=== PATIENT | female | born 1965 | race Caucasian/White ===

== ENCOUNTER 2017-01-12 17:13 | Observation (INO) | payer BC, OTHER ==
[2017-01-12 17:35] VITALS: BMI 34.3
--- NOTE | 2017-01-12 17:52 | ED PDOC ---
Arrival/HPI - General Chief Complaint: Trauma Time Seen by Provider: 01/12/17 17:14 Historian: Patient - History of Present Illness Narrative History of Present Illness (Text): 01/12/17 17:40 A 51 year old female, whose past medical history includes hypertension, diabetes , asthma, chronic back pain and colon cancer (reported in remission), who comes in complaining of multiple falls since last week. Patient notes since the falls she has noticed some numbness to the lower left extremity and left foot. Patient reports earlier today she fell on the floor and is unsure what happened. Patient is unable to recall the events, however she does not believe she passed out or felt dizzy prior to the fall. She denies any focal weakness, chest pain, shortness of breath, nausea, vomiting, diarrhea, vision change or any other complaints at this time. PMD: None Past Medical History - Provider Review Nursing Documentation Reviewed: Yes - Infectious Disease Hx of Infectious Diseases: None - Tetanus Immunization Tetanus Immunization: Unknown - Reproductive Menopause: Yes - Cardiac Hx Hypertension: Yes - Pulmonary Hx Asthma: Yes Hx Bronchitis: Yes - Neurological Hx Neurological Disorder: No - HEENT Hx HEENT Disorder: No - Renal Hx Renal Disorder: No - Endocrine/Metabolic Hx Endocrine Disorders: Yes Hx Diabetes Mellitus Type 2: Yes - Hematological/Oncological Hx Blood Disorders: No Hx Cancer: Yes (colon denies chemo or radiation) - Integumentary Hx Dermatological Disorder: No - Musculoskeletal/Rheumatological Hx Falls: No - Gastrointestinal Hx Gastrointestinal Disorders: Yes Hx Gastroesophageal Reflux: Yes Other/Comment: Colon CA- WITH SURGERY-WHIPPLE SURGERY - Genitourinary/Gynecological Hx Genitourinary Disorders: Yes Hx Urinary Tract Infection: Yes Other/Comment: H/O VAGINAL CANDIDIASIS - Psychiatric Hx Depression: No Hx Substance Use: No (pt denies) - Surgical History Other/Comment: CA Colon - whipple,CESEREAN X 1 - Anesthesia Hx Anesthesia: No Hx Anesthesia Reactions: No Hx Malignant Hyperthermia: No - Suicidal Assessment Feels Threatened In Home Enviroment: No Family/Social History - Physician Review Nursing Documentation Reviewed: Yes Family/Social History: No Known Family HX Smoking Status: Heavy Smoker > 10 Cigarettes Daily Hx Alcohol Use: No (pt denies) Hx Substance Use: No (pt denies) Hx Substance Use Treatment: Yes Allergies/Home Meds Allergies/Adverse Reactions: Allergies acetaminophen Allergy (Verified 04/26/16 14:42) RASH codeine Allergy (Verified 03/31/16 07:35) RASH iodine Allergy (Verified 11/12/15 18:05) RASH Home Medications: Home Meds Medication Instructions Recorded Confirmed Enalapril Maleate 5 mg PO DAILY 05/21/14 04/27/16 Metformin HCl 1,000 mg PO BID 05/21/14 04/27/16 Hydroxyzine Pamoate 50 mg PO TID 11/12/15 04/27/16 Metaxalone 800 mg PO QID 11/12/15 04/27/16 Omeprazole 20 mg PO DAILY 11/12/15 04/27/16 Oxycodone Hydrochloride 80 mg PO Q8 11/12/15 04/27/16 Simvastatin 20 mg PO DAILY 11/12/15 04/27/16 Oxycodone HCl/Acetaminophen 1 tab PO Q8 PRN 04/27/16 04/27/16 [Percocet 325 mg-5 mg] Review of Systems - Physician Review All systems were reviewed & negative as marked: Yes - Review of Systems Constitutional: Other (falls) Eyes: absent: Vision Changes Respiratory: absent: SOB Cardiovascular: absent: Chest Pain Gastrointestinal: absent: Diarrhea, Nausea, Vomiting Neurological: Dizziness, Other (numbness to the left lower extremity and left foot). absent: Focal Weakness Physical Exam Vital Signs Reviewed: Yes Vital Signs Temp Pulse Resp BP Pulse Ox 01/12/17 17:34 98.2 F 82 16 131/80 96 01/12/17 17:22 98.6 F 77 18 131/90 96 Temperature: Afebrile Blood Pressure: Normal Pulse: Regular Respiratory Rate: Normal Appearance: Positive for: Well-Appearing, Non-Toxic, Comfortable Pain Distress: None Mental Status: Positive for: Alert and Oriented X 3 - Systems Exam Head: Present: Atraumatic, Normocephalic Pupils: Present: PERRL Extroacular Muscles: Present: EOMI Conjunctiva: Present: Normal Mouth: Present: Moist Mucous Membranes Pharnyx: Present: Normal. No: ERYTHEMA Neck: Present: Normal Range of Motion Respiratory/Chest: Present: Clear to Auscultation, Good Air Exchange. No: Respiratory Distress, Accessory Muscle Use Cardiovascular: Present: Regular Rate and Rhythm, Normal S1, S2. No: Murmurs Abdomen: Present: Normal Bowel Sounds. No: Tenderness, Distention, Peritoneal Signs Back: Present: Normal Inspection Upper Extremity: Present: Normal Inspection. No: Cyanosis, Edema Lower Extremity: No: Edema Neurological: Present: GCS=15, CN II-XII Intact, Speech Normal, Motor Func Grossly Intact. No: Normal Sensory Function (decreased sensation to the left lower extremity) Skin: Present: Warm, Dry, Normal Color. No: Rashes Psychiatric: Present: Alert, Oriented x 3, Normal Insight, Normal Concentration Medical Decision Making ED Course and Treatment: 01/12/17 17:40 Impression: A 51 year old female with multiple recent falls and numbness to the left lower extremity. Differential Diagnosis include but are not limited to: CVA vs diabetic neuropathy vs syncope Plan: -- EKG -- Head CT -- Chest X-ray -- Labs -- Urinalysis -- Reassess and disposition Prior Visits: Notes and results from previous visits were reviewed. The patient last presented to the emergency department on 05/02/16 for evaluation of abdominal pain and nausea. Progress Notes: EKG: Ordered, reviewed, and independently interpreted the EKG. Rate : 75 BPM Rhythm : NSR Interpretation : normal axis, normal interval, no ST/T changes. 01/12/17 18:[address]: Creator : Juliana Jones MD COMPARISON: None available. FINDINGS: HEMORRHAGE: No intracranial hemorrhage. BRAIN: No mass effect or edema. Mild scattered white matter hypodensities, which are nonspecific, but often seen with chronic microvascular ischemic disease. Please note that MRI with diffusion imaging is more sensitive in the detection of acute ischemic event. VENTRICLES: No hydrocephalus. CALVARIUM: Unremarkable. PARANASAL SINUSES: Unremarkable as visualized. No significant inflammatory changes. MASTOID AIR CELLS: Unremarkable as visualized. No inflammatory changes. OTHER FINDINGS: None. IMPRESSION: Mild scattered nonspecific white matter changes as above. 01/12/17 18:55 Chest X-ray: Creator : JANIS BERRIOS MD COMPARISON: 03/31/2016 FINDINGS: LUNGS: The lungs are well inflated and clear. PLEURA: No significant pleural effusion identified. No pneumothorax apparent. CARDIOVASCULAR: Normal. OSSEOUS STRUCTURES: No significant abnormalities. VISUALIZED UPPER ABDOMEN: Normal. OTHER FINDINGS: None. IMPRESSION: No active pulmonary disease. 01/12/17 22:48 Patient' findings include uncontrolled DM with LLE numbness, possibly due to diabetic neuropathy. CT with no acute findings, but patient will need neuro assessment for peripheral vs central etiology. Given multiple falls recently with possible presentation and neuro concerns, will need additional assessment in the hospital. Discussed with Dr. Mazariegos, covering on-call physician, Dr. Mcclendon. 01/12/17 22:50 NIHSS is 1 - not a tpa candidate. - Lab Interpretations Lab Results: 01/12/17 18:05 01/12/17 18:05 Lab Results 01/12/17 20:22: Urine Color Yellow, Urine Appearance Clear, Urine pH 7.0, Ur Specific [place] 1.015, Urine Protein Trace H, Urine Glucose (UA) >=1000, Urine Ketones 15 H, Urine Blood Trace-intact H, Urine Nitrate Negative, Urine Bilirubin Negative, Urine Urobilinogen 0.2, Ur Leukocyte Esterase Trace H, Urine RBC 1 - 3, Urine WBC 1 - 3, Ur Epithelial Cells 1 - 3, Urine Bacteria Small, Urine Other Uyeast 01/12/17 18:05: WBC 3.9 L, RBC 5.18, Hgb 14.7, Hct 42.6, MCV 82.2, MCH 28.4, MCHC 34.5, RDW 13.2, Plt Count 193, MPV 10.3, Gran % 54.6, Lymph % (Auto) 39.0 H , [place]ett % (Auto) 5.1, Eos % (Auto) 1.0 L, Baso % (Auto) 0.3, Gran # 2.13, Lymph # 1.5, Pickett # 0.2, Eos # 0.0, Baso # 0.01, PT 10.2, INR 0.94, APTT 24.1, Sodium 131 L, Potassium 4.3, Chloride 95 L, Carbon Dioxide 25, Anion Gap 15, BUN 8, Creatinine 0.6, Est GFR ( Amer) > 60, Est GFR (Non-Af Amer) > 60, Random Glucose 494 H* D, Calcium 9.9, Magnesium 1.6 L, Total Bilirubin 0.6, AST 14 L, ALT 22, Alkaline Phosphatase 128, Lactate Dehydrogenase 419, Total Creatine Kinase 41, Troponin I < 0.01, Total Protein 7.1, Albumin 4.1, Globulin 3.0, Albumin/Globulin Ratio 1.4, Lipase 44 I have reviewed the lab results: Yes - RAD Interpretation Radiology Orders: 01/12/17 17:43 CHEST TWO VIEWS (PA/LAT) [RAD] Stat 01/12/17 17:44 Brain [HEAD W/O CONTRAST] [CT] Stat - Medication Orders Current Medication Orders: Discontinued Medications Sodium Chloride (Sodium Chloride 0.9%) 1,000 mls @ 999 mls/hr IV .Q1H1M STA Stop: 01/12/17 19:51 Last Admin: 01/12/17 18:56 Dose: 999 MLS/HR eMAR Start Stop Document 01/12/17 18:56 SE (Rec: 01/12/17 18:56 SE [id number]) Intravenous Solution Start Date 01/12/17 Start Time 18:56 NIHSS Scale ([place]) Time Performed: 17:40 - How Severe is the Stoke Baseline Level of Consciousness: 0=Alert LOC to Questions: 0=Both comments correct LOC to commands: 0=Obeys both correctly Best Gaze: 0=Normal Visual: 0=No visual loss Facial: 0=Normal Motor Arm - Left: 0=No drift Motor Arm - Right: 0=No drift Motor Leg - Left: 0=No drift Motor Leg - Right: 0=No drift Limb Ataxia: 0=Absent Sensory: 1=Mild to moderate loss Best Language: 0=No aphasia Dysarthia: 0=Normal articulation Extinction & Inattention (Neglect): 0=Normal, no object Score: 1 Risk Level: Minor Stroke Risk - Scribe Statement The provider has reviewed the documentation as recorded by the Scribe Loly Morris Provider Scribe Attestation: All medical record entries made by the Scribe were at my direction and personally dictated by me. I have reviewed the chart and agree that the record accurately reflects my personal performance of the history, physical exam, medical decision making, and the department course for this patient. I have also personally directed, reviewed, and agree with the discharge instructions and disposition. Disposition/Present on Arrival - Present on Arrival Any Indicators Present on Arrival: Yes History of DVT/PE: No History of Uncontrolled Diabetes: Yes Urinary Catheter: No History of Decub. Ulcer: No History Surgical Site Infection Following: None - Disposition Have Diagnosis and Disposition been Completed?: Yes Diagnosis: Uncontrolled diabetes mellitus, Falls frequently, Numbness Disposition: HOSPITALIZED Disposition Time: 22:50 Patient Plan: Observation Patient Problems: Current Active Problems Problem Status Diagnosed Chronic pain Acute DKA (diabetic ketoacidoses) Acute Hyperglycemia Acute Nausea vomiting and diarrhea Acute Condition: FAIR
[2017-01-12 18:26] LABS: ADD MANUAL DIFF? NO
[2017-01-12 18:30] LABS: BASO # 0.01 K/mm3 (0.0-2.0); BASO % 0.3 % (0.0-3.0); GRAN # 2.13 (1.4-6.5); GRAN % 54.6 % (50.0-68.0); HEMATOCRIT 42.6 % (36.0-48.0); LYMPH # 1.5 (1.2-3.4); MEAN CELL VOLUME 82.2 fL (80.0-105.0); MEAN CORPUSCULAR HEMOGLOBIN 28.4 pg (25.0-35.0); MEAN CORPUSCULAR HGB CONC 34.5 g/dl (31.0-37.0); MEAN PLATELET VOLUME 10.3 fl (7.0-11.0); MONO # 0.2 (0.1-0.6); MONO % 5.1 % (1.0-6.0); PLATELET COUNT 193 10^3/uL (120.0-450.0); RED CELL DISTRIBUTION WIDTH 13.2 % (11.5-14.5); WHITE BLOOD COUNT 3.9 10^3/ul (4.5-11.0)
--- NOTE | 2017-01-12 18:35 | CT ---
PROCEDURE: CT HEAD WITHOUT CONTRAST. HISTORY: multiple falls COMPARISON: None available. TECHNIQUE: Axial computed tomography images were obtained through the head/brain without intravenous contrast. Radiation dose: Total exam DLP = 774.23 MGy-cm. FINDINGS: HEMORRHAGE: No intracranial hemorrhage. BRAIN: No mass effect or edema. Mild scattered white matter hypodensities, which are nonspecific, but often seen with chronic microvascular ischemic disease. Please note that MRI with diffusion imaging is more sensitive in the detection of acute ischemic event. VENTRICLES: No hydrocephalus. CALVARIUM: Unremarkable. PARANASAL SINUSES: Unremarkable as visualized. No significant inflammatory changes. MASTOID AIR CELLS: Unremarkable as visualized. No inflammatory changes. OTHER FINDINGS: None. IMPRESSION: Mild scattered nonspecific white matter changes as above.
[2017-01-12 18:40] LABS: ALB/GLOB RATIO 1.4 (1.1-1.8); ALKALINE PHOSPHATASE 128 U/L (38-133); ALT/SGPT 22 U/L (7-56); AST/SGOT 14 U/L (15-39); BILIRUBIN,TOTAL 0.6 mg/dL (0.2-1.3); BLOOD UREA NITROGEN 8 mg/dL (7-21); CALCIUM 9.9 mg/dL (8.4-10.5); CARBON DIOXIDE 25 mmol/L (21-33); CHLORIDE 95 mmol/L (98-107); GFR AFRICAN-AMERICAN > 60; LIPASE 44 U/L (23-300); MAGNESIUM 1.6 mg/dL (1.7-2.2); POTASSIUM 4.3 mmol/L (3.6-5.0); SODIUM 131 mmol/L (132-148); TOTAL PROTEIN 7.1 g/dL (5.8-8.3)
[2017-01-12 18:42] LABS: GLUCOSE,RANDOM 494 mg/dL (70-110); INR 0.94 (0.93-1.08); PARTIAL THROMBOPLASTIN TIME 24.1 Seconds (23.7-30.8)
[2017-01-12] MEDS ORDERED: Sodium Chloride 0.9% 1,000 ML IV STA (18:51)
[2017-01-12 18:52] LABS: TROPONIN I < 0.01 ng/mL
--- NOTE | 2017-01-12 18:52 | RAD ---
HISTORY: multiple falls COMPARISON: 03/31/2016 TECHNIQUE: Chest PA and lateral FINDINGS: LUNGS: The lungs are well inflated and clear. PLEURA: No significant pleural effusion identified. No pneumothorax apparent. CARDIOVASCULAR: Normal. OSSEOUS STRUCTURES: No significant abnormalities. VISUALIZED UPPER ABDOMEN: Normal. OTHER FINDINGS: None. IMPRESSION: No active pulmonary disease.
[2017-01-12 20:32] LABS: URINE BILIRUBIN NEGATIVE (NEGATIVE); URINE BLOOD TRACE-INTACT (NEGATIVE); URINE GLUCOSE (UA) >=1000 mg/dL (NEGATIVE); URINE KETONE 15 mg/dL (NEGATIVE); URINE LEUKOCYTE ESTERASE TRACE Leu/uL (NEGATIVE); URINE PROTEIN TRACE mg/dL (<30 mg/dL); URINE UROBILINOGEN 0.2 E.U./dL (<1 E.U./dL)
[2017-01-12 20:33] LABS: URINE APPEARANCE CLEAR (CLEAR); URINE COLOR YELLOW (YELLOW)
[2017-01-12 20:45] LABS: URINE BACTERIA SMALL (NEG)
[2017-01-12] MEDS ORDERED: oxyCODONE 5 mg Immediate Release Tab PO STA (22:52)
[2017-01-13] MEDS ORDERED: Insulin Regular 1 UNITS/0.01 ML ML ONE (02:43)
[2017-01-13] MEDS: Insulin Reg-LOW-Coverage SC SCH ×2 (02:43→07:53)
[2017-01-13] MEDS ORDERED: oxyCODONE 80 mg ER Tab (oxyCONTIN) PO STA (04:14)
--- NOTE | 2017-01-13 04:18 | CP.PCM.PN ---
Subjective - Date & Time of Evaluation Date of Evaluation: 01/13/17 Time of Evaluation: 04:15 - Subjective Subjective: Patient was seen at bedside. Complains of back pain, neck pain, legs pain. States that she has chronic pain since 1998 and is on oxycodone at home. This 51 year old woman came in after she had multiple falls at home , numbness to left leg and foot,syncope. Has PMH of HTN,DM,Asthma , chronic back pain, GERD , colon cancer, whipple's procedure. Objective - Vital Signs/Intake and Output Vital Signs (last 24 hours): Temp Pulse Resp BP Pulse Ox 98.1 F 96 H 20 156/84 H 52 L 01/13/17 03:30 01/13/17 03:30 01/13/17 03:30 01/13/17 03:30 01/13/17 03:30 - Medications Medications: Current Medications Insulin Human Regular (Humulin R Low) 0 units SC ACHS NADYA PRN Reason: Protocol Last Admin: 01/13/17 02:43 Dose: 4 units Oxycodone HCl (Oxycontin Extended Release Tab) 80 mg PO STAT STA Stop: 01/13/17 04:15 - Labs Labs: PT 10.2 Seconds (9.9-11.8) 01/12/17 18:05 INR 0.94 (0.93-1.08) 01/12/17 18:05 APTT 24.1 Seconds (23.7-30.8) 01/12/17 18:05 - Constitutional Appears: Well, No Acute Distress - Head Exam Head Exam: ATRAUMATIC, NORMAL INSPECTION, NORMOCEPHALIC - Eye Exam Eye Exam: Normal appearance Additional comments: Obese. - ENT Exam ENT Exam: Normal External Ear Exam - Neck Exam Neck Exam: Normal Inspection - Respiratory Exam Respiratory Exam: NORMAL BREATHING PATTERN - Cardiovascular Exam Cardiovascular Exam: absent: JVD - GI/Abdominal Exam GI & Abdominal Exam: absent: Distended - Rectal Exam Rectal Exam: Deferred - Extremities Exam Extremities Exam: Normal Inspection - Back Exam Back Exam: NORMAL INSPECTION - Neurological Exam Neurological Exam: Alert, Oriented x3 - Psychiatric Exam Psychiatric exam: Normal Affect, Normal Mood - Skin Skin Exam: Normal Color Assessment and Plan - Assessment and Plan (Free Text) Assessment: A/P:Chronic back pain. Asthma. HTN. DM. Oxycodone 80 mg po stat.
[2017-01-13 07:14] LABS: HEMATOCRIT 40.6 % (36.0-48.0); MEAN CELL VOLUME 81.7 fL (80.0-105.0); MEAN CORPUSCULAR HEMOGLOBIN 27.6 pg (25.0-35.0); MEAN CORPUSCULAR HGB CONC 33.7 g/dl (31.0-37.0); MEAN PLATELET VOLUME 10.1 fl (7.0-11.0); RED CELL DISTRIBUTION WIDTH 13.3 % (11.5-14.5); WHITE BLOOD COUNT 5.8 10^3/ul (4.5-11.0)
[2017-01-13 07:23] LABS: ALB/GLOB RATIO 1.2 (1.1-1.8); ALKALINE PHOSPHATASE 108 U/L (38-133); ALT/SGPT 21 U/L (7-56); AST/SGOT 23 U/L (15-39); BILIRUBIN,TOTAL 0.7 mg/dL (0.2-1.3); BLOOD UREA NITROGEN 8 mg/dL (7-21); CALCIUM 9.2 mg/dL (8.4-10.5); CARBON DIOXIDE 24 mmol/L (21-33); CHLORIDE 100 mmol/L (98-107); GFR AFRICAN-AMERICAN > 60; SODIUM 134 mmol/L (132-148); TOTAL PROTEIN 6.6 g/dL (5.8-8.3)
[2017-01-13] MEDS ORDERED: Insulin Reg-LOW-Coverage SC SCH (07:30)
[2017-01-13] MEDS ORDERED: Oxycodone/Acetaminophen 5/325 mg Tab PO PRN (07:47)
[2017-01-13 07:59] LABS: GLUCOSE,RANDOM 332 mg/dL (70-110)
[2017-01-13] MEDS ORDERED: Sodium Chloride 0.45% 1,000 ML IV SCH ×2 (08:00→15:00)
[2017-01-13 09:02] VITALS: RESP 20
--- NOTE | 2017-01-13 09:51 | HP ---
I saw the patient in the hospital in room 562. She is uncomfortable. She has a history of chronic p ain, diabetes, numbness and tingling. She is here because she has multiple falls, numbness and tingl ing in the lower extremities, especially the left extremity and left foot. Blood sugars she tells me are high all the time. She does not think she passed out, but she cannot walk well. I think she is going to probably need to have either TCU or subacute rehab to improve her strength. PAST MEDICAL HISTORY: Hypertension, diabetes, asthma, chronic pain; colon cancer history, in remissi on; she is in menopause, hypertension. She had colon cancer, no chemo or radiation though. She had a Whipple procedure. She has reflux, history of vaginal candidiasis. PAST SURGICAL HISTORY: She also had a besides colon cancer with a Whipple. FAMILY HISTORY: There is diabetes in the family. SOCIAL HISTORY: She still smokes. She is a heavy smoker or more than a pack a day. No alcohol, no drugs she says. ALLERGIES: SHE IS ALLERGIC TO TYLENOL, CODEINE AND IODINE. MEDICATIONS: She is on Vasotec, metformin, hydroxyzine, metaxalone, omeprazole, oxycodone, simvastat in, and Percocet. She has chronic pain. She sees a pain doctor on the outpatient. REVIEW OF SYSTEMS: She is in chronic pain; she wants to her pain meds. She has lots of falls. She has aches and pains all over. She has numbness and tingling in the left leg. Her blood sugars have been elevated. No acute vision changes, no acute hearing changes, no sore throat. No chest pain or palpitations. No shortness of breath or coughing. No headaches, no dizziness. There is numbness an d tingling in the left leg and left foot with weakness with multiple falls. No nausea, vomiting, con stipation, diarrhea. PHYSICAL EXAMINATION: VITAL SIGNS: She has 98.2 temp, 82 pulse, 16 respiratory rate, 131/80 blood pressure. There is a 96 O2 sat at rest. GENERAL: She is well appearing. She is uncomfortable for the left leg numbness and tingling and wea kness. Alert and oriented x 3. HEENT: Head is atraumatic, normocephalic. Extraocular muscles are intact. Pupils are equal, reacti ve to light. Throat is moist. NECK: Supple. HEART: Regular rate. Normal S1, S2. LUNGS: Have decreased breath sounds, but clear to auscultation. No wheezes, no rhonchi, no rales. ABDOMEN: Soft, nontender, positive bowel sounds. No guarding, no rebound, no CVA tenderness. A lit tle bit obese. EXTREMITIES: She can move them all. She tells me the left leg is weak when she moves it, numbness a nd tingling. NEUROLOGIC: GCS is 15. Cranial nerves II-XII grossly intact. Speech is normal. Decreased sensatio n in the left lower extremity. SKIN: Warm and dry. LYMPHATICS: Thyroid midline. No palpable lymphadenopathy. LABORATORY DATA: She had multiple labs. She has a 5.8 white count, 13.7 hemoglobin, 40.6 hematocrit , with 186 platelets. INR is 0.94. She has a 131 sodium, potassium 4.3, BUN 8, creatinine 0.6, GFR is greater than 60. Sugar is 494 and 374. Calcium is 9.9, magnesium 1.6. AST is 14, ALT is 22, alk tasia phosphatase 128. Troponin less than 0.01. Total protein 7.1, albumin is 4.1, globulin is 3, l ipase is 44. Urine has trace protein, trace leukocytes. She has a chest x-ray and a head CT. Chest x-ray: No acute pulmonary disease. CAT scan of the head : Mild scattered nonspecific white matter changes. She will have consults with neurology, endocrinology and physical therapy. I am going to make her an inpatient. I do not believe she is going to be able to walk out of here in 24 hours in observation and will probably need subacute rehabilitation versus TCU before she goes home. I am going to change her to an inpatient status. She is here for chronic pain, diabetes, now left-sided numbness and tingling and weakness with multip le falls. Mayur Mcclendon DO cc: [id number] TT: 01/13/2017 09:51:15 mn
[2017-01-13] MEDS ORDERED: METAXALONE 800 MG PO SCH ×3 (10:00→13:47)
[2017-01-13] MEDS ORDERED: OMEPRAZOLE 20 MG PO SCH (10:00)
[2017-01-13] MEDS ORDERED: oxyCODONE 80 mg ER Tab (oxyCONTIN) PO SCH (10:00)
[2017-01-13] MEDS ORDERED: Insulin Detemir 100 units/ml Vial (Levemir) SC SCH ×2 (10:00→22:00)
[2017-01-13] MEDS: oxyCODONE 80 mg ER Tab (oxyCONTIN) PO SCH ×2 (10:27→21:11)
[2017-01-13] MEDS: Oxycodone/Acetaminophen 5/325 mg Tab PO PRN ×2 (10:34→18:30)
[2017-01-13] MEDS: Potassium Chloride 10 mEq ER Tab PO SCH (10:34)
[2017-01-13] MEDS: Pantoprazole 40 mg EC Tab PO SCH (10:34)
[2017-01-13] MEDS: Enoxaparin 40 mg Syringe SC SCH (10:35)
[2017-01-13] MEDS ORDERED: Insulin Reg-HIGH-Coverage SC SCH (11:30)
[2017-01-13] MEDS ORDERED: [UNRECOGNIZED DRUG - OTHER] PO SCH (14:00)
[2017-01-13] MEDS: METAXALONE 800 MG PO SCH ×2 (14:13→17:14)
--- NOTE | 2017-01-13 16:46 | CON ---
DATE: 01/13/2017 ROOM: 562 HISTORY OF PRESENT ILLNESS: This is a 51-year-old female with known history of type 2 insulin-requir ing diabetes, presenting here with frequent near syncopal and syncopal episodes and has been referred now for diabetic evaluation because of hyperglycemic accelerations as noted thereof. PAST MEDICAL HISTORY: History of type 2 insulin-requiring diabetes on a combination of Lantus given as 15 units subQ in the evening daily with metformin at 1000 mg b.i.d.; history of hypertensive cardi ovascular disease and dyslipidemia, history of diabetic retinopathy and polyneuropathy with severe pa inful lower extremity paresthesias, especially in the left distal extremity; history of chronic asthm a with previous admissions for exacerbations of the same, history of chronic low back pain and admits to lumbar disk disease and has been on narcotic analgesics for pain relief, history of colon cancer and underwent some kind of surgical resection with no chemo or radiation therapy given. The historic al records show here that she underwent a Whipple's procedure but it is really done for pancreatic ca rcinoma, so this has yet to be verified with the prior medical records. FAMILY HISTORY: Positive for hypertension and diabetes. SOCIAL HISTORY: The patient admits to nicotine dependence and smokes close to a pack a day for many years now, for over 20 years. REVIEW OF SYSTEMS: As mentioned above, admits to generalized body weakness with easy fatigability an d tiredness and suboptimal energy level. Also admits to frequent bouts of dizziness and lightheadedn ess with near syncopal episodes although denies any actual syncopal episodes at this time with freque nt ____ for falls as noted. No chest pains or palpitations or PNDs, but admits to episodic bouts of shortness of breath, especially on exertion. Her oral intake is variable with nausea, dyspepsia, and vague upper abdominal pains. Also, admits to marked polyuria and nocturia as noted. PHYSICAL EXAMINATION: GENERAL: This is an overweight female in no apparent distress. VITAL SIGNS: Blood pressure of 150/90, pulse of 88 beats per minute and regular, temperature 98, res pirations 20. Height is 5 feet 4 inches. Weight is 200 pounds. HEENT: Head normocephalic. Eyes anicteric with pink conjunctivae. Fundoscopy not possible at this time. Ears, nose and throat otherwise normal. NECK: Supple. Thyroid gland is normal size. No carotid bruits or cervical adenopathy. CARDIOPULMONARY: Adynamic precordium. S1, S2 is rapid and regular. LUNGS: Clear to auscultation. ABDOMEN: Flat, soft with positive bowel sounds. EXTREMITIES: No peripheral edema. Pulses are +2 bilaterally. LABORATORY DATA: The initial chemistries showed BUN of 8, sodium 131, potassium 4.3, chloride 95, CO 2 of 25, glucose 494, and creatinine 0.6. Her glucose levels have ranged from 332-374 mg/dL today. ASSESSMENT: This is a 51-year-old female with uncontrolled and decompensated type 2 insulin-requirin g diabetes with marked hyperglycemic accelerations related to a subtherapeutic insulin regimen as not ed. She has significant history of diabetic retinopathy and polyneuropathy, which can really contrib andrew to the unsteady gait and frequent near-syncopal episodes thereof because of the supervening dyseq uilibrium thereof. PLAN OF MANAGEMENT: We will modify her current insulin regimen and switch over to a more physiologic basal and bolus insulin drug combination as ordered. We will order IV hydration as she continues to have increased fluid and electrolyte losses from the increased osmotic diuresis as expected from the marked hyperglycemic accelerations as noted. However, the nursing staff notified me that the patien t refused the IV fluids as ordered today. We will add Humalog given as 8 units subQ t.i.d. before me als to start at dinnertime today as ordered. We will modify the coverage scale with a low dose algor ithm using Humalog insulin to obviate hypoglycemia and detailed orders have been given. We will also add basal insulin with Levemir given as 24 units subQ at bedtime daily to start tonight. We will ti trate incrementally as indicated to optimize metabolic control. We will consult our diabetic nurse e alyciaator, Ms. Alexandria Lira, to discuss with the patient the need for tighter metabolic control and also to reinforce and observe her insulin self-administration techniques. We will also consult our dietitian for nutritional counseling and weight loss efforts and healthier food choices. We will obt ain serial chemistries and supplement accordingly as needed. We will follow. Adali Ferguson MD cc: [id number] TT: 01/13/2017 16:45:34 Confirmation # [id number] Dictation # [id number]
[2017-01-13] MEDS: Insulin Lispro 1 UNITS/0.01 ML SC SCH (17:14)
[2017-01-13] MEDS: Insulin Lispro (humaLOG) LOW Coverage SC SCH (17:14)
[2017-01-13] MEDS ORDERED: Non Formulary Medication (Insulin Glargine, Recombina [Lantus] 15 UNIT) SC SCH (18:00)
--- NOTE | 2017-01-13 20:11 | CARD ---
APPROVED REPORT EKG Measurement Heart [id number] <Conclusion> Normal sinus rhythm Possible Left atrial enlargement Borderline ECG
--- NOTE | 2017-01-13 22:08 | CON ---
DATE: 01/13/2017 HISTORY OF PRESENT ILLNESS: This is a 51-year-old black female with a past medical history of diabet es type 2 and came to the hospital with a syncopal episode, has been falling and called to evaluate t he patient. PAST MEDICAL HISTORY: Diabetes type 2, hypertension, dyslipidemia, diabetic retinopathy and polyneur opathy. SOCIAL HISTORY: Smokes and drinks. REVIEW OF SYSTEMS: A 10-point review of system was negative, except frequent falls. PHYSICAL EXAMINATION: HEENT: Normocephalic, atraumatic. NECK: Supple. NEUROLOGIC: Alert, awake, oriented x 3. No aphasia. Cranial nerves II through XII were tested. Pu pils reactive. EOM intact. Visual carlos full. No facial asymmetry. Tongue midline. Motor examin ation: Moves all the extremities spontaneously. Deep tendon reflexes 1+. Both plantars are downgoi ng. Sensory appears intact. Cerebellar and gait deferred. IMPRESSION: Peripheral neuropathy, possibly secondary to diabetes and multiple medical problems, per ipheral neuropathy and hypertension and workup in progress. We will follow up. Sergey Rao MD cc: [id number] TT: 01/13/2017 21:59:08 Confirmation # [id number] Dictation # [id number] mn 01/13/2017 21:07:26
[2017-01-14] MEDS: Oxycodone/Acetaminophen 5/325 mg Tab PO PRN ×2 (02:45→10:44)
--- NOTE | 2017-01-14 05:57 | CP.PCM.PN ---
Subjective - Date & Time of Evaluation Date of Evaluation: 01/14/17 Time of Evaluation: 05:56 - Subjective Subjective: Patient was seen because she had nausea and requested pain medication for neck and back pain. She is already Oxycodone 80 mg PO Q12H and percoect 325/5 I PO Q8H prn. States that that is not enough for her. Has no other complaints. Complains of back pain, neck pain, nausea. States that she has chronic pain since 1998 and is on oxycodone at home. This 51 year old woman came in after she had multiple falls at home , numbness to left leg and foot,syncope. Has PMH of HTN,DM,Asthma , chronic back pain, GERD , colon cancer, whipple's procedure. Objective - Vital Signs/Intake and Output Vital Signs (last 24 hours): Temp Pulse Resp BP Pulse Ox 98.6 F 58 L 20 96/59 L 97 01/13/17 16:00 01/13/17 16:00 01/13/17 16:00 01/13/17 16:00 01/13/17 16:00 Intake and Output: 01/13/17 01/14/17 18:59 06:59 Intake Total 840 720 Balance 840 720 - Medications Medications: Current Medications Atorvastatin Calcium (Lipitor) 10 mg PO DIN [facility] Last Admin: 01/13/17 17:14 Dose: 10 mg Enoxaparin Sodium (Lovenox) 40 mg SC DAILY [facility] PRN Reason: Protocol Last Admin: 01/13/17 10:35 Dose: 40 mg Insulin Detemir (Levemir) 24 unit SC HS [facility] Last Admin: 01/13/17 23:03 Dose: 24 unit Insulin Human Lispro (Humalog Low) 0 units SC [facility] PRN Reason: Protocol Last Admin: 01/13/17 17:14 Dose: 2 units Insulin Human Lispro (Humalog) 8 units SC AC [facility] Last Admin: 01/13/17 17:14 Dose: 8 units Lisinopril (Zestril) 5 mg PO DAILY [facility] Last Admin: 01/13/17 10:34 Dose: 5 mg Metformin HCl (Glucophage) 1,000 mg PO BID [facility] Last Admin: 01/13/17 17:14 Dose: 1,000 mg Metoclopramide HCl (Reglan) 10 mg PO [facility] Last Admin: 01/13/17 17:13 Dose: 10 mg (Metaxalone 800 Mg) ((Home Med)) 800 mg PO QID [facility] Last Admin: 01/13/17 17:14 Dose: 800 mg Ondansetron HCl (Zofran Inj) 4 mg IVP STAT STA Stop: 01/14/17 05:50 Oxycodone HCl (Oxycontin Extended Release Tab) 80 mg PO Q12 [facility] Last Admin: 01/13/17 21:11 Dose: 80 mg Oxycodone/Acetaminophen (Percocet 5/325 Mg Tab) 1 tab PO Q8 PRN PRN Reason: Pain, moderate (4-7) Stop: 01/16/17 08:28 Last Admin: 01/14/17 02:45 Dose: 1 tab Pantoprazole Sodium (Protonix Ec Tab) 40 mg PO DAILY [facility] Last Admin: 01/13/17 10:34 Dose: 40 mg Potassium Chloride (Klor-Con 10) 10 meq PO DAILY [facility] Last Admin: 01/13/17 10:34 Dose: 10 meq - Labs Labs: PT 10.2 Seconds (9.9-11.8) 01/12/17 18:05 INR 0.94 (0.93-1.08) 01/12/17 18:05 APTT 24.1 Seconds (23.7-30.8) 01/12/17 18:05 - Constitutional Appears: Well, No Acute Distress - Head Exam Head Exam: ATRAUMATIC, NORMAL INSPECTION, NORMOCEPHALIC - Eye Exam Eye Exam: Normal appearance Additional comments: Obese. - ENT Exam ENT Exam: Normal External Ear Exam - Neck Exam Neck Exam: Normal Inspection - Respiratory Exam Respiratory Exam: NORMAL BREATHING PATTERN - Cardiovascular Exam Cardiovascular Exam: absent: JVD - GI/Abdominal Exam GI & Abdominal Exam: absent: Distended - Rectal Exam Rectal Exam: Deferred - Extremities Exam Extremities Exam: Normal Inspection - Back Exam Back Exam: NORMAL INSPECTION - Neurological Exam Neurological Exam: Alert, Oriented x3 - Psychiatric Exam Psychiatric exam: Normal Affect, Normal Mood - Skin Skin Exam: Normal Color Assessment and Plan - Assessment and Plan (Free Text) Assessment: A/P:Nausea-2* to Oxycodone,percocet. Neck pain, back pain. Colon cancer history. Obesity. HTN. DM. Asthma. Obesity. Oxycodone 80 mg PO now instead of at 9:00AM.
[2017-01-14] MEDS: oxyCODONE 80 mg ER Tab (oxyCONTIN) PO SCH ×2 (06:15→10:42)
[2017-01-14 07:09] LABS: HEMATOCRIT 41.8 % (36.0-48.0); MEAN CELL VOLUME 83.1 fL (80.0-105.0); MEAN CORPUSCULAR HEMOGLOBIN 27.8 pg (25.0-35.0); MEAN CORPUSCULAR HGB CONC 33.5 g/dl (31.0-37.0); MEAN PLATELET VOLUME 10.2 fl (7.0-11.0); RED CELL DISTRIBUTION WIDTH 13.6 % (11.5-14.5); WHITE BLOOD COUNT 4.6 10^3/ul (4.5-11.0)
[2017-01-14 07:40] LABS: ALB/GLOB RATIO 1.3 (1.1-1.8); ALKALINE PHOSPHATASE 114 U/L (38-133); ALT/SGPT 21 U/L (7-56); AST/SGOT 19 U/L (15-39); BILIRUBIN,TOTAL 0.6 mg/dL (0.2-1.3); BLOOD UREA NITROGEN 12 mg/dL (7-21); CALCIUM 9.4 mg/dL (8.4-10.5); CARBON DIOXIDE 24 mmol/L (21-33); CHLORIDE 99 mmol/L (98-107); GFR AFRICAN-AMERICAN > 60; POTASSIUM 3.7 mmol/L (3.6-5.0); SODIUM 135 mmol/L (132-148); TOTAL PROTEIN 7.1 g/dL (5.8-8.3)
[2017-01-14 07:42] LABS: GLUCOSE,RANDOM 305 mg/dL (70-110)
[2017-01-14] MEDS: Insulin Lispro (humaLOG) LOW Coverage SC SCH ×2 (08:01→11:53)
[2017-01-14] MEDS: Insulin Lispro 1 UNITS/0.01 ML SC SCH ×2 (08:01→11:53)
[2017-01-14 08:43] VITALS: TEMP 98; O2SAT 96
[2017-01-14] MEDS: Enoxaparin 40 mg Syringe SC SCH (10:29)
[2017-01-14] MEDS: Potassium Chloride 10 mEq ER Tab PO SCH (10:29)
[2017-01-14] MEDS: Pantoprazole 40 mg EC Tab PO SCH (10:29)
[2017-01-14] MEDS: METAXALONE 800 MG PO SCH (10:35)
[2017-01-14 10:40] VITALS: BP 103/66; PULSE 64
--- NOTE | 2017-01-14 12:19 | DS ---
I saw the patient resting in bed. She is very upset being here, not sleeping at all last night, not comfortable here. She is refusing IVs. She is only on p.o. medications. That is what she comes in on. She is also walking fantastic. Physical therapy says home with possible outpatient physical the rapy. She is going to follow up with her primary care doctor on the outpatient. PHYSICAL EXAMINATION: VITAL SIGNS: She has 98.6 temp, 58 pulse, 96/59 blood pressure, 20 respiratory rate, 97% O2 sat on r oom air. HEENT: Head is atraumatic, normocephalic. HEART: Regular rate. LUNGS: Clear to auscultation. ABDOMEN: Soft, obese, nontender. EXTREMITIES: No edema. She is doing so much better than when she came in. She is going to go home on her metaxalone, Glucophage, her insulin, potassium, Levemir, Lipitor, Love nox, oxycodone, Percocet, Protonix, Reglan, and Zestril. She will follow up with her doctor that prescribes those medications. She was seen by endocrinology and by neurology. Not much added from neurology. Endocrinology is adjusting her medications. Also, hopefully she will have a better diet when she leaves here, low sugar diet. She will follow up with her primary care doctor. I will make sure she continues the same medications. She was here for chronic pain, which is her baseline. She did have some falls and weakness, but it s eems to have resolved. I will put her back to an observation status. She should follow up with [facility] doctor in the next 5 days. Mayur Mcclendon DO cc: [id number] TT: 01/14/2017 12:18:59 en
--- NOTE | 2017-01-14 17:01 | PN ---
DATE: 01/14/2017 ROOM: 562 SUBJECTIVE: This is a 51-year-old female with recent uncontrolled type 2 insulin-requiring diabetes, presenting here with frequent bouts of near syncopal episodes, underwent a neurological evaluation a nd workup and is also being followed closely now for metabolic management. Her repeat chemistry show ed a BUN of 12, sodium 135, potassium 3.7, chloride 99, CO2 24, glucose 305 and creatinine 0.7. So a t this time, we will continue the same basal and bolus insulin regimen as given, although will increa se the basal insulin to 30 units subQ at bedtime daily to start tonight because of persistent fasting hyperglycemia. We will continue the Humalog at 8 units subQ t.i.d. before meals as her oral intake remains quite variable as noted thereof. She will follow with her medical doctor for outpatient diab etic and metabolic medical followup. We will follow and advise accordingly. Adali Ferguson MD cc: [id number] TT: 01/14/2017 17:00:43 Confirmation # [id number] Dictation # [id number] stephanie
== END 2017-01-14 12:44 | disposition home or self-care (01) ==
LOC: ED 17:13 → ERH 22:23 → 5RNO 01-13 03:46 → OBSVTOIN 01-13 07:59 → INTOOBSV 01-13 07:59
PROVIDERS: ADMIT Family Medicine; ATTEND Family Medicine
DX: G89.29 Other chronic pain (principal); R53.1 Weakness; E11.65 Type 2 diabetes mellitus with hyperglycemia; E11.42 Type 2 diabetes mellitus with diabetic polyneuropathy; R55 Syncope and collapse; J45.909 Unspecified asthma, uncomplicated; I11.9 Hypertensive heart disease without heart failure; E78.5 Hyperlipidemia, unspecified; E11.319 Type 2 diabetes mellitus with unspecified diabetic retinopathy without macular edema; F17.210 Nicotine dependence, cigarettes, uncomplicated; M54.5 Low back pain; M54.2 Cervicalgia; E66.9 Obesity, unspecified; R20.0 Anesthesia of skin; K21.9 Gastro-esophageal reflux disease without esophagitis; R29.6 Repeated falls; Z79.4 Long term (current) use of insulin; Z85.038 Personal history of other malignant neoplasm of large intestine; Z82.49 Family history of ischemic heart disease and other diseases of the circulatory system; Z83.3 Family history of diabetes mellitus
CPT/HCPCS: 36415; 70450; 71020; 80053; 81001; 82550; 82948; 83615; 83690; 83735; 84484; 85025; 85027; 85610; 85730; 87086; 93005; 96372; 97161; 99285; G0378; G8978; G8979; J1650; J2405; J7040

== ENCOUNTER 2017-02-06 23:23 | Observation (INO) | payer BC, OTHER ==
[2017-02-06 23:47] VITALS: BMI 32.5
--- NOTE | 2017-02-06 23:54 | ED PDOC ---
Arrival/HPI - General Chief Complaint: GI Problem Time Seen by Provider: 02/06/17 23:29 Historian: Patient - History of Present Illness Narrative History of Present Illness (Text): 02/06/17 23:54 Marizol Parker is a 51 year old female smoker, whose past medical history includes hypertension, diabetes, asthma, chronic pain, colon cancer in remission , and peripheral neuropathy, who presents to the Emergency department complaining of numbness in bilateral feet since she was discharged from the hospital for similar symptoms on 01/12/2017. Patient reports multiple falls at home and notes tonight she was unable to get up on her own. Patient also complaining of nausea, vomiting, and back pain. Patient denies any fever, chills , chest pain, shortness of breath, diarrhea, urinary symptoms, back pain, neck pain, headache, dizziness, or any other complaints. No PMD Symptom Onset: Gradual Symptom Course: Unchanged Activities at Onset: Rest, Light Context: Home Past Medical History - Provider Review Nursing Documentation Reviewed: Yes - Infectious Disease Hx of Infectious Diseases: None - Tetanus Immunization Tetanus Immunization: Unknown - Cardiac Hx Hypertension: Yes - Pulmonary Hx Chronic Obstructive Pulmonary Disease (COPD): Yes - Neurological Hx Neurological Disorder: No - HEENT Hx HEENT Disorder: No - Renal Hx Renal Disorder: No - Endocrine/Metabolic Hx Diabetes Mellitus Type 2: Yes - Hematological/Oncological Hx Blood Disorders: No Hx Cancer: Yes (colon /denies chemo or radiation) - Integumentary Hx Dermatological Disorder: No - Musculoskeletal/Rheumatological Hx Falls: Yes - Gastrointestinal Hx Gastrointestinal Disorders: Yes Hx Gastroesophageal Reflux: Yes Other/Comment: Colon CA- WITH SURGERY-WHIPPLE SURGERY - Genitourinary/Gynecological Hx Genitourinary Disorders: Yes Hx Urinary Tract Infection: Yes Other/Comment: H/O VAGINAL CANDIDIASIS - Psychiatric Hx Depression: No Hx Substance Use: No (pt denies) - Surgical History Other/Comment: CA Colon - whipple,CESEREAN X 1 - Anesthesia Hx Anesthesia: No Hx Anesthesia Reactions: No Hx Malignant Hyperthermia: No - Suicidal Assessment Feels Threatened In Home Enviroment: No Family/Social History - Physician Review Nursing Documentation Reviewed: Yes Family/Social History: No Known Family HX Smoking Status: Heavy Smoker > 10 Cigarettes Daily Hx Alcohol Use: No (pt denies) Hx Substance Use: No (pt denies) Hx Substance Use Treatment: Yes Allergies/Home Meds Allergies/Adverse Reactions: Allergies acetaminophen Allergy (Verified 02/06/17 23:34) RASH codeine Allergy (Verified 02/06/17 23:34) RASH iodine Allergy (Verified 02/06/17 23:34) RASH Home Medications: Home Meds Medication Instructions Recorded Confirmed Enalapril Maleate 5 mg PO DAILY 05/21/14 02/07/17 Metformin HCl 1,000 mg PO BID 05/21/14 02/07/17 Oxycodone HCl/Acetaminophen 1 tab PO Q8 PRN 04/27/16 02/07/17 [Percocet 325 mg-5 mg] Hydroxyzine Pamoate [Hydroxyzine 100 mg PO DAILY 02/06/17 02/07/17 Pamoate] Metaxalone [Skelaxin] 800 mg PO QID 02/06/17 02/07/17 Omeprazole [Omeprazole] 20 mg PO DAILY 02/06/17 02/07/17 Oxycodone HCl [Oxycodone HCl ER] 160 mg PO Q12H 02/06/17 02/07/17 Simvastatin [Simvastatin] 20 mg PO DAILY 02/06/17 02/07/17 Lyrica 100 mg PO TID 02/07/17 02/07/17 Review of Systems - Physician Review All systems were reviewed & negative as marked: Yes - Review of Systems Constitutional: Normal. absent: Fevers Eyes: Normal ENT: Normal Respiratory: Normal. absent: SOB, Cough Cardiovascular: Normal. absent: Chest Pain Gastrointestinal: Nausea, Vomiting Genitourinary Female: Normal. absent: Dysuria, Frequency, Hematuria, Urine Output Changes Musculoskeletal: Back Pain, Other (+numbness to bilateral lower feet) Skin: Normal. absent: Rash Neurological: Normal. absent: Headache, Dizziness Endocrine: Normal Hemo/Lymphatic: Normal Psychiatric: Normal Physical Exam Vital Signs Reviewed: Yes Vital Signs Temp Pulse Resp BP Pulse Ox 02/07/17 02:21 72 16 98 02/07/17 01:46 70 16 128/82 98 02/07/17 01:07 68 17 128/85 95 02/06/17 23:49 98.3 F 72 16 126/83 94 L Temperature: Afebrile Blood Pressure: Normal Pulse: Regular Respiratory Rate: Normal Appearance: Positive for: Well-Appearing, Non-Toxic, Comfortable Pain Distress: None Mental Status: Positive for: Alert and Oriented X 3 - Systems Exam Head: Present: Atraumatic, Normocephalic Pupils: Present: PERRL Extroacular Muscles: Present: EOMI Conjunctiva: Present: Normal Mouth: Present: Moist Mucous Membranes Neck: Present: Normal Range of Motion Respiratory/Chest: Present: Clear to Auscultation, Good Air Exchange. No: Respiratory Distress, Accessory Muscle Use Cardiovascular: Present: Regular Rate and Rhythm, Normal S1, S2. No: Murmurs Abdomen: Present: Normal Bowel Sounds. No: Tenderness, Distention, Peritoneal Signs Back: Present: Normal Inspection Upper Extremity: Present: Normal Inspection. No: Cyanosis, Edema Lower Extremity: Present: Normal Inspection. No: Edema Neurological: Present: GCS=15, CN II-XII Intact, Speech Normal Skin: Present: Warm, Dry, Normal Color. No: Rashes Psychiatric: Present: Alert, Oriented x 3, Normal Insight, Normal Concentration Medical Decision Making ED Course and Treatment: 02/06/17 23:54 Impression: 51 year old female complaining of numbness to bilateral feet, generalized weakness, nausea, vomiting, and back pain. Differential Diagnosis include but are not limited to: peripheral neuropathy vs. gastroparesis Plan: -- EKG -- Chest X-ray -- Labs, troponin, lipase, alcohol level -- Urinalysis, urine drug screen -- Reassess and disposition Prior Visits: Notes and results from previous visits were reviewed. Progress Notes: Reviewed EKG, NSR at [address]-segment elevations or depressions, no T-wave inversions, normal intervals. 02/07/17 00:57 Reviewed radiology, Chest X-ray shows no active disease. 02/07/17 01:[address] Mazarigeos, covering for Dr. Mcclendon, who is aware and agrees with plan. Pt will go to [facility] observation for peripheral neuropathy and gastroparesis under Dr. Mcclendon's service. Pt is no acute distress. Discussed results and hospital observation plan with pt , who is aware and agrees with plan. 02/07/17 04:36 - Lab Interpretations Lab Results: 02/06/17 00:31 02/06/17 00:31 Lab Results 02/07/17 00:50: Urine Color Yellow, Urine Appearance Slight-cloudy, Urine pH 6.0 , Ur Specific [place] 1.025, Urine Protein 30 H, Urine Glucose (UA) 500 H, Urine Ketones Trace H, Urine Blood Negative, Urine Nitrate Negative, Urine Bilirubin Negative, Urine Urobilinogen 1.0 H, Ur Leukocyte Esterase Negative, Urine RBC 0 - 2, Urine WBC 1 - 3, Ur Epithelial Cells 4 - 5, Calcium Oxalate Crystal Few, Urine Bacteria Small, Urine Other Uyeast 02/06/17 00:50: Urine Opiates Screen Positive H, Urine Methadone Screen Negative , Ur Barbiturates Screen Negative, Ur Phencyclidine Scrn Negative, Ur Amphetamines Screen Negative, U Benzodiazepines Scrn Negative, U Oth Cocaine Metabols Negative, U Cannabinoids Screen Positive H 02/06/17 00:31: WBC 7.6 D, RBC 5.00, Hgb 14.2, Hct 41.7, MCV 83.4, MCH 28.4, MCHC 34.1, RDW 14.0, Plt Count 236, MPV 9.8, Gran % 71.1 H, Lymph % (Auto) 23.3 , [place] % (Auto) 4.7, Eos % (Auto) 0.8 L, Baso % (Auto) 0.1, Gran # 5.39, Lymph # 1.8, [place] # 0.4, Eos # 0.1, Baso # 0.01, Sodium 133, Potassium 4.4, Chloride 98, Carbon Dioxide 27, Anion Gap 12, BUN 14, Creatinine 0.6, Est GFR ( Amer) > 60, Est GFR (Non-Af Amer) > 60, Random Glucose 300 H, Calcium 9.3, Total Bilirubin 1.0, AST 24, ALT 28, Alkaline Phosphatase 108, Troponin I 0.02 D, Total Protein 7.1, Albumin 3.9, Globulin 3.2, Albumin/Globulin Ratio 1.2, Lipase 30, Alcohol, Quantitative < 10 I have reviewed the lab results: Yes - RAD Interpretation Radiology Orders: 02/06/17 23:55 CHEST PORTABLE [RAD] Stat Spreader: ED Physician - EKG Interpretation Interpreted by ED Physician: Yes Type: 12 lead EKG - Medication Orders Current Medication Orders: Sodium Chloride (Sodium Chloride 0.9%) 1,000 mls @ 100 mls/hr IV .Q10H STA Stop: 02/07/17 11:40 Last Admin: 02/07/17 02:10 Dose: 100 MLS/HR eMAR Start Stop Document 02/07/17 02:10 [email or web address] (Rec: 02/07/17 02:10 [place] [id number]- ATTEND) Intravenous Solution Start Date 02/07/17 Start Time 02:10 End Date 02/07/17 Insulin Human Regular (Humulin R Low) 0 units SC ACHS NADYA PRN Reason: Protocol Last Admin: 02/07/17 02:11 Dose: 3 UNITS Subcutaneous Admin in ER Document 02/07/17 02:11 [email or web address] (Rec: 02/07/17 02:11 [place] [id number]- ATTEND) Injection Site MAR Injection Site Left Abdomen Subcutaneous Administrations Document 02/07/17 02:11 [email or web address] (Rec: 02/07/17 02:[address] Charges for Administration # of Subcutaneous Administrations 1 Ondansetron HCl (Zofran Inj) 4 mg IVP Q6H PRN PRN Reason: Nausea/Vomiting Last Admin: 02/07/17 02:10 Dose: 4 MG IVP Administration Document 02/07/17 02:10 [email or web address] (Rec: 02/07/17 02:11 [place] [id number]- ATTEND) Charges for Administration # of IVP Administrations 1 Discontinued Medications Hydromorphone HCl (Dilaudid) 1 mg IVP STAT STA Stop: 02/07/17 00:55 Last Admin: 02/07/17 01:04 Dose: 1 MG IVP Administration Document 02/07/17 01:04 SF (Rec: 02/07/17 01:04 SF [id number]) Charges for Administration # of IVP Administrations 1 Insulin Human Regular (Humulin R) Confirm Administered Dose 3 units .ROUTE .STK- MED ONE Stop: 02/07/17 02:04 Last Admin: 02/07/17 02:12 Dose: Oxycodone/Acetaminophen (Percocet 5/325 Mg Tab) 1 tab PO STAT STA Stop: 02/07/17 03:01 Last Admin: 02/07/17 03:16 Dose: 1 TAB MAR Pain Assessment Document 02/07/17 03:16 MOI (Rec: 02/07/17 03:17 MOI [id number]) Pain Reassessment Is this a pain reassessment? Yes Sleep Is patient sleeping during reassessment? No Presence of Pain Presence of Pain Yes Pain Scale Used Pain Scale Used Numeric Location Pain Location Body Site Back Description Description Intermittent Intensity of Pain at present 9 Pain Behavior Facial Grimacing Aggravating Factors None Alleviating Factors/Management Medication Techniques Alleviating Factors Medication - Scribe Statement The provider has reviewed the documentation as recorded by the Patriciaibbelia Minor Provider Attestation: All medical record entries made by the Patriciaibbelia were at my direction and personally dictated by me. I have reviewed the chart and agree that the record accurately reflects my personal performance of the history, physical exam, medical decision making, and the department course for this patient. I have also personally directed, reviewed, and agree with the discharge instructions and disposition. Disposition/Present on Arrival - Present on Arrival Any Indicators Present on Arrival: No History of DVT/PE: No History of Uncontrolled Diabetes: Yes Urinary Catheter: No History of Decub. Ulcer: No History Surgical Site Infection Following: None - Disposition Have Diagnosis and Disposition been Completed?: Yes Diagnosis: Intractable vomiting with nausea Disposition: HOSPITALIZED Disposition Time: 01:40 Patient Problems: Current Active Problems Problem Status Diagnosed Chronic pain Acute DKA (diabetic ketoacidoses) Acute Hyperglycemia Acute Nausea vomiting and diarrhea Acute Condition: GOOD
[2017-02-07 00:48] LABS: ADD MANUAL DIFF? NO
[2017-02-07] MEDS ORDERED: HYDROmorphone 1 mg/ml ISec IVP STA (00:54)
[2017-02-07 00:57] LABS: BASO # 0.01 K/mm3 (0.0-2.0); BASO % 0.1 % (0.0-3.0); EOS # 0.1 (0.0-0.7); EOS % 0.8 % (1.5-5.0); GRAN # 5.39 (1.4-6.5); GRAN % 71.1 % (50.0-68.0); HEMATOCRIT 41.7 % (36.0-48.0); LYMPH # 1.8 (1.2-3.4); LYMPH % 23.3 % (22.0-35.0); MEAN CELL VOLUME 83.4 fL (80.0-105.0); MEAN CORPUSCULAR HEMOGLOBIN 28.4 pg (25.0-35.0); MEAN CORPUSCULAR HGB CONC 34.1 g/dl (31.0-37.0); MEAN PLATELET VOLUME 9.8 fl (7.0-11.0); MONO # 0.4 (0.1-0.6); MONO % 4.7 % (1.0-6.0); PLATELET COUNT 236 10^3/uL (120.0-450.0); WHITE BLOOD COUNT 7.6 10^3/ul (4.5-11.0)
[2017-02-07 01:06] LABS: ALB/GLOB RATIO 1.2 (1.1-1.8); ALKALINE PHOSPHATASE 108 U/L (38-133); ALT/SGPT 28 U/L (7-56); AST/SGOT 24 U/L (15-39); BLOOD UREA NITROGEN 14 mg/dL (7-21); CALCIUM 9.3 mg/dL (8.4-10.5); CARBON DIOXIDE 27 mmol/L (21-33); CHLORIDE 98 mmol/L (98-107); GFR AFRICAN-AMERICAN > 60; LIPASE 30 U/L (23-300); POTASSIUM 4.4 mmol/L (3.6-5.0); SODIUM 133 mmol/L (132-148); TOTAL PROTEIN 7.1 g/dL (5.8-8.3)
[2017-02-07 01:16] LABS: TROPONIN I 0.02 ng/mL
[2017-02-07] MEDS ORDERED: Sodium Chloride 0.9% 1,000 ML IV STA (01:41)
[2017-02-07] MEDS ORDERED: Insulin Regular 1 UNITS/0.01 ML ML ONE (02:03)
[2017-02-07 02:09] LABS: GLUCOSE,RANDOM 300 mg/dL (70-110)
[2017-02-07 02:11] LABS: URINE BILIRUBIN NEGATIVE (NEGATIVE); URINE BLOOD NEGATIVE (NEGATIVE); URINE GLUCOSE (UA) 500 mg/dL (NEGATIVE); URINE KETONE TRACE mg/dL (NEGATIVE); URINE LEUKOCYTE ESTERASE NEGATIVE Leu/uL (NEGATIVE); URINE PROTEIN 30 mg/dL (<30 mg/dL)
[2017-02-07] MEDS: Insulin Reg-LOW-Coverage SC SCH ×5 (02:11→22:03)
[2017-02-07 02:12] LABS: URINE APPEARANCE SLIGHT-CLOUDY (CLEAR); URINE COLOR YELLOW (YELLOW)
[2017-02-07 02:33] LABS: URINE CALCIUM OXALATE CRYSTALS FEW /hpf; URINE RBC 0 - 2 /hpf (0-2)
[2017-02-07 02:34] LABS: URINE BACTERIA SMALL (NEG)
[2017-02-07] MEDS ORDERED: Oxycodone/Acetaminophen 5/325 mg Tab PO STA (03:00)
[2017-02-07] MEDS: Oxycodone/Acetaminophen 5/325 mg Tab PO PRN ×3 (08:47→22:58)
--- NOTE | 2017-02-07 10:02 | CARD ---
APPROVED REPORT EKG Measurement Heart [id number] <Conclusion> Normal sinus rhythm Possible Left atrial enlargement NSSTW changes
--- NOTE | 2017-02-07 11:02 | RAD ---
HISTORY: weakness COMPARISON: Comparison chest dated 01/12/2017. FINDINGS: LUNGS: Poor inspiration low lung volumes, mild crowded bronchovascular markings and mild bibasilar atelectasis PLEURA: No significant pleural effusion identified, no pneumothorax apparent. CARDIOVASCULAR: Normal. OSSEOUS STRUCTURES: No significant abnormalities. VISUALIZED UPPER ABDOMEN: Normal. OTHER FINDINGS: None. IMPRESSION: Poor inspiration low lung volumes, mild crowded bronchovascular markings and mild bibasilar atelectasis
[2017-02-07] MEDS: Morphine 2 mg/ml ISec IVP PRN ×3 (11:05→21:28)
--- NOTE | 2017-02-07 11:08 | HP ---
The patient is a 51-year-old female, seen and examined at bedside, comes in today due to progressive nausea and vomiting as well as worsening of her diabetic neuropathy that she has. The patient states she has been taking medication as well as pain medication; however, continues to have pain. PAST MEDICAL HISTORY: Includes hypertension, diabetes, asthma, chronic pain, colon CA in the past. PAST SURGICAL HISTORY: Includes a as well as a possible Whipple's procedure. FAMILY MEDICAL HISTORY: Diabetes. SOCIAL HISTORY: Continues to smoke. No drinking, no drug use. MEDICAL ALLERGIES: TYLENOL, CODEINE, AND IODINE. MEDICATIONS: See MAR. REVIEW OF SYSTEMS: HEENT: Unremarkable. CARDIOVASCULAR: Unremarkable. LUNGS: Unremarkable. ABDOMEN: Positive for nausea and vomiting as well as decreased p.o. intake. EXTREMITIES: Positive for numbness as well as tingling to bilateral legs. PHYSICAL EXAMINATION: VITAL SIGNS: Blood pressure is currently 144/96, pulse rate of 64, temperature is 98.2, O2 saturatio n is 99% on room air. HEENT: Normocephalic, atraumatic. [place] conjunctivae, nonicteric sclerae. NECK: No JVD, no thyromegaly. CARDIOVASCULAR: Regular rate and rhythm. S1, S2 appreciated. LUNGS: Bilateral air entry is positive. No wheezes or rhonchi. ABDOMEN: Nondistended, nontender. Positive bowel sounds. EXTREMITIES: Peripheral pulses are +2. There is no pitting edema. LABORATORIES: WBCs of 7.6, hemoglobin of 14.2, hematocrit of 41.7, platelets of 236. Chemistry with in normal limits. LFTs also within normal limits. She is positive for opioids in the toxicology as well as cannabinoids. ASSESSMENT: 1. Abdominal pain. 2. Gastroparesis. 3. Diabetes. 4. Hypertension. 5. Asthma. PLAN: At this time, we will control pain. We will get her physical therapy. This patient is a cand idate for subacute rehab, so we will convert the patient to an inpatient profile and we will watch ve ry closely. Best Mazariegos MD cc: [id number] TT: 02/07/2017 11:07:54 en
[2017-02-07] MEDS: METAXALONE 800 MG PO SCH ×3 (13:34→21:28)
[2017-02-07] MEDS ORDERED: LYRICA 100 MG PO SCH (14:00)
[2017-02-07] MEDS ORDERED: METAXALONE 800 MG PO SCH (14:00)
[2017-02-08] MEDS: Morphine 2 mg/ml ISec IVP PRN ×3 (01:47→11:41)
[2017-02-08] MEDS: Oxycodone/Acetaminophen 5/325 mg Tab PO PRN (05:28)
[2017-02-08 07:05] LABS: ADD MANUAL DIFF? NO
[2017-02-08 07:17] LABS: BASO # 0.01 K/mm3 (0.0-2.0); BASO % 0.3 % (0.0-3.0); EOS % 1.1 % (1.5-5.0); GRAN # 1.69 (1.4-6.5); GRAN % 44.7 % (50.0-68.0); HEMATOCRIT 38.9 % (36.0-48.0); LYMPH # 1.8 (1.2-3.4); LYMPH % 46.7 % (22.0-35.0); MEAN CELL VOLUME 83.3 fL (80.0-105.0); MEAN CORPUSCULAR HEMOGLOBIN 27.8 pg (25.0-35.0); MEAN CORPUSCULAR HGB CONC 33.4 g/dl (31.0-37.0); MEAN PLATELET VOLUME 9.8 fl (7.0-11.0); MONO # 0.3 (0.1-0.6); MONO % 7.2 % (1.0-6.0); PLATELET COUNT 221 10^3/uL (120.0-450.0); WHITE BLOOD COUNT 3.8 10^3/ul (4.5-11.0)
[2017-02-08 07:26] LABS: ALB/GLOB RATIO 1.1 (1.1-1.8); ALKALINE PHOSPHATASE 115 U/L (38-133); ALT/SGPT 34 U/L (7-56); AST/SGOT 14 U/L (15-39); BILIRUBIN,TOTAL 0.5 mg/dL (0.2-1.3); BLOOD UREA NITROGEN 14 mg/dL (7-21); CALCIUM 8.8 mg/dL (8.4-10.5); CARBON DIOXIDE 24 mmol/L (21-33); CHLORIDE 104 mmol/L (98-107); GFR AFRICAN-AMERICAN > 60; GLUCOSE,RANDOM 295 mg/dL (70-110); POTASSIUM 3.9 mmol/L (3.6-5.0); SODIUM 137 mmol/L (132-148); TOTAL PROTEIN 6.6 g/dL (5.8-8.3)
[2017-02-08] MEDS: Insulin Reg-LOW-Coverage SC SCH ×4 (07:57→21:36)
[2017-02-08] MEDS ORDERED: Sodium Chloride 0.45% 1,000 ML IV SCH (08:00)
--- NOTE | 2017-02-08 08:19 | PN ---
DATE: 02/08/2017 I saw the patient sitting up in bed. She tells me she is throwing up all the food and all the medica tion. She cannot keep anything down. The IVs have stopped. I will put her back on IV fluids. I wi ll discontinue the p.o. meds, put on IV meds, call in GI, change her to inpatient. She is currently going to be put on Catapres patch for the elevated blood pressure. She has Glucopha ge, which I will put on hold, insulin coverage, Lyrica we will put on hold, metaxalone we will put on hold. She has morphine for pain, Protonix was changed to IV, Reglan was changed to IV, Zofran was c hanged to IV. She was admitted yesterday by Dr. Mazariegos. He put her in for abdominal pain, gastroparesis, diabetes , hypertension, asthma and consulted neurology. I will add GI to the case. PHYSICAL EXAMINATION: VITAL SIGNS: She has 98.2 temp, 64 pulse, 144/96 blood pressure, 17 respiratory rate, 98% O2 sat on room air. HEENT: Head is atraumatic, normocephalic. Throat is dry. NECK: Supple. HEART: Regular rate. LUNGS: Clear to auscultation. ABDOMEN: Decreased bowel sounds, mildly distended, soft. EXTREMITIES: No edema. She has a white count 3.8, hemoglobin 13, hematocrit 38.9, platelets of 221. Sodium 137, potassium 3 .9, BUN is 14, creatinine 0.6, GFR is greater than 60, sugar is 295. I will bump up the coverage. C alcium is 8.8, total bili is 0.5, AST is 14, ALT is 34, alk phos 115, total protein 6.6. Urine was s mall, positive for opiates and marijuana. She will have consults with GI and neurology. She has intractable nausea, vomiting, cannot keep anyt [place] down. We will make her n.p.o., make her inpatient stay, IV fluids, Zofran, IV Reglan, IV Proton ix and we will see what GI has to offer and we will rest the tummy. The patient has got some gastroparesis, abdominal pain, diabetes, neuropathy. Mayur Mcclendon DO cc: [id number] TT: 02/08/2017 08:18:01 Confirmation # [id number] Dictation # [id number] en
[2017-02-08] MEDS: METAXALONE 800 MG PO SCH ×4 (09:42→21:30)
--- NOTE | 2017-02-08 09:46 | CP.PCM.CON ---
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 Patient describes periumbilical sharp, constant pain for two days. She notes smoking marijuana on Wednesday followed by recurrent yellow bilious vomitus on Wednesday. She endorses episode of hematochezia on Wednesday with blood in toilet water and with wiping. Notes bowel movements every other day without straining. Denies hematemesis, diarrhea, constipation, melena, bloating , indigestion, fever, chills, sweats, recent travel, sick contacts, or recent antibiotics. She takes oxycodone 160mg twice daily for chronic back pain. She notes resolved nausea and vomiting since admission until one episode of bilious vomitus this morning. Last EGD and colonoscopy 2007 at outside facility endorsed to be normal. Family-Mother and aunt-lung cancer, uncle-pancreatic cancer diagnosed over 60 years of age, brother- colon cancer- diagnosed before 50 years of age Social- 1ppd >20 years , denies alcohol use, marijuana use Surgery- Whipple's, partial colectomy, hernia repair, Review of Systems - Review of Systems Review of Systems: A 12-point review of systems negative except for as above Past Patient History - Infectious Disease Hx of Infectious Diseases: None - Tetanus Immunizations Tetanus Immunization: Unknown - Past Social History Smoking Status: Heavy Smoker > 10 Cigarettes Daily - CARDIAC Hx Hypertension: Yes - PULMONARY Hx Chronic Obstructive Pulmonary Disease (COPD): Yes - NEUROLOGICAL Hx Neurological Disorder: No - HEENT Hx HEENT Problems: No - RENAL Hx Chronic Kidney Disease: No - ENDOCRINE/METABOLIC Hx Diabetes Mellitus Type 2: Yes - HEMATOLOGICAL/ONCOLOGICAL Hx Blood Disorders: No Hx Cancer: Yes (colon /denies chemo or radiation) - INTEGUMENTARY Hx Dermatological Problems: No - MUSCULOSKELETAL/RHEUMATOLOGICAL Hx Falls: Yes - GASTROINTESTINAL Hx Gastrointestinal Disorders: Yes Hx Gastroesophageal Reflux: Yes Other/Comment: Colon CA- WITH SURGERY-WHIPPLE SURGERY - GENITOURINARY/GYNECOLOGICAL Hx Genitourinary Disorders: Yes Hx Urinary Tract Infection: Yes Other/Comment: H/O VAGINAL CANDIDIASIS - PSYCHIATRIC Hx Depression: No Hx Substance Use: No (pt denies) - SURGICAL HISTORY Other/Comment: CA Colon - whipple,CESEREAN X 1 - ANESTHESIA Hx Anesthesia: No Hx Anesthesia Reactions: No Hx Malignant Hyperthermia: No Meds Allergies/Adverse Reactions: Allergies Allergy/AdvReac Type Severity Reaction Status Date / Time acetaminophen Allergy RASH Verified 02/06/17 23:34 codeine Allergy RASH Verified 02/06/17 23:34 iodine Allergy RASH Verified 02/06/17 23:34 - Medications Medications: Current Medications Clonidine HCl (Catapres Tts1 0.1 Mg/24 Hr) 1 patch TD Q7D@1000 [facility] Pantoprazole Sodium (Protonix 40mg Ivpb) 100 mls @ 200 mls/hr IVPB 0600 [facility] Sodium Chloride (Sodium Chloride 0.45%) 1,000 mls @ 40 mls/hr IV .Q24H [facility] Insulin Human Regular (Humulin R Low) 0 units SC ACHS [facility] PRN Reason: Protocol Last Admin: 02/08/17 07:57 Dose: 4 units Metformin HCl (Glucophage) 1,000 mg PO BID [facility] Last Admin: 02/07/17 17:51 Dose: 1,000 mg Metoclopramide HCl (Reglan) 10 mg IVP ACHS [facility] Morphine Sulfate (Morphine) 2 mg IVP Q4H PRN PRN Reason: Pain, moderate (4-7) Last Admin: 02/08/17 08:03 Dose: 2 mg Non-Formulary Medication (Metaxalone [Skelaxin]) 800 mg PO QID [facility] Last Admin: 02/07/17 21:28 Dose: Not Given Ondansetron HCl (Zofran Inj) 4 mg IVP Q4H PRN PRN Reason: Nausea/Vomiting Pregabalin (Lyrica) 100 mg PO TID [facility] Last Admin: 02/07/17 18:44 Dose: 100 mg Physical Exam - Constitutional Appears: Non-toxic, No Acute Distress - Head Exam Head Exam: ATRAUMATIC, NORMOCEPHALIC - Eye Exam Eye Exam: EOMI, PERRL Pupil Exam: PERRL. absent: Miosis, Mydriatic - ENT Exam ENT Exam: Mucous Membranes Moist, Normal Oropharynx - Neck Exam Neck exam: Positive for: Full Rom, Normal Inspection - Respiratory Exam Respiratory Exam: Clear to Auscultation Bilateral. absent: Rales, Rhonchi, Wheezes - Cardiovascular Exam Cardiovascular Exam: RRR, +S1, +S2. absent: Gallop, Rubs - GI/Abdominal Exam GI & Abdominal Exam: Normal Bowel Sounds, Tenderness. absent: Distended, Firm, Guarding, Organomegaly, Rebound, Rigid Additional comments: periumbilical tenderness to palpation - Extremities Exam Extremities exam: Positive for: full ROM. 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 Laboratory findings showing hyperglycemia and marijuana on urine drug screen. Recent discharge 01/14/17 with hyperglycemia secondary to dietary noncompliance, last A1c 17.3 (04/2016). Last EGD and colonoscopy 2007 at outside facility endorsed to be normal. Plan: >likely component of gastroparesis >noted recent marijuana use prior to onset of vomiting >gastroparesis is a potential complication of history of Whipple's >improve glycemic control >ordered A1c >counselled on marijuana cessation >counselled on follow up with Pancreatic surgeon- Dr. Ricketts >trial clear liquids >supportive care: antiemetics, IVFs, PPI >H/H stable >will benefit from elective EGD/colonoscopy <Gerber Mejia - Last Filed: 02/08/17 11:56> Meds - Medications Medications: Current Medications Clonidine HCl (Catapres Tts1 0.1 Mg/24 Hr) 1 patch TD Q7D@1000 [facility] Last Admin: 02/08/17 09:41 Dose: Not Given Pantoprazole Sodium (Protonix 40mg Ivpb) 100 mls @ 200 mls/hr IVPB 0600 [facility] Sodium Chloride (Sodium Chloride 0.45%) 1,000 mls @ 40 mls/hr IV .Q24H [facility] Last Admin: 02/08/17 09:43 Dose: 40 mls/hr Insulin Human Regular (Humulin R Low) 0 units SC ACHS [facility] PRN Reason: Protocol Last Admin: 02/08/17 11:35 Dose: 2 units Metformin HCl (Glucophage) 1,000 mg PO BID [facility] Last Admin: 02/08/17 09:41 Dose: 1,000 mg Metoclopramide HCl (Reglan) 10 mg IVP ACHS [facility] Last Admin: 02/08/17 10:58 Dose: 10 mg Morphine Sulfate (Morphine) 2 mg IVP Q4H PRN PRN Reason: Pain, moderate (4-7) Last Admin: 02/08/17 11:41 Dose: 2 mg Non-Formulary Medication (Metaxalone [Skelaxin]) 800 mg PO QID [facility] Last Admin: 02/08/17 09:42 Dose: Not Given Ondansetron HCl (Zofran Inj) 4 mg IVP Q4H PRN PRN Reason: Nausea/Vomiting Pregabalin (Lyrica) 100 mg PO TID [facility] Last Admin: 02/08/17 09:42 Dose: 100 mg Results - Vital Signs Recent Vital Signs: Last Vital Signs Temp 98.5 F 02/08/17 06:00 Pulse 54 L 02/08/17 09:41 Resp 17 02/08/17 06:00 BP 125/78 02/08/17 09:41 Pulse Ox 95 02/08/17 06:00 - Labs Result Diagrams: 02/08/17 06:45 02/08/17 06:45 Attending/Attestation - Attestation I have personally seen and examined this patient.: Yes I have fully participated in the care of the patient.: Yes I have reviewed all pertinent clinical information: Yes Notes (Text): 02/08/17 11:53 51 year old female with history of DMII, Chronic back pain with opiate use, HTN , Asthma, CRC s/p partial colectomy, pancreatic cancer s/p whipple 1990 admitted with abdominal pain and vomiting. 1. Gastroparesis Plan: -likely multifactorial, in the setting of chronic opiate use and poorly controlled DM/Hyperglycemia as well as h/o Whipple surgery, and recent marijuana -recommend supportive care -reglan therapy as prokinectic -advised against marijuana use -recommend elective outpatient egd/colon -CT abdomen/pelvis from last year reviewed, were unremarkable at that time -liquid diet and advance as tolerated -small frequent meals
[2017-02-08] MEDS ORDERED: ENALAPRIL MALEATE 5 MG PO SCH (10:00)
[2017-02-08] MEDS ORDERED: Pantoprazole 40 mg EC Tab PO SCH (10:00)
[2017-02-08] MEDS ORDERED: Morphine 4 mg/ml ISec IVP PRN ×2 (11:53→12:07)
[2017-02-08] MEDS: Morphine 4 mg/ml ISec IVP PRN ×4 (14:56→23:43)
--- NOTE | 2017-02-08 17:43 | CON ---
DATE: 02/08/2017 CHIEF COMPLAINT: Neuropathy. HISTORY OF PRESENT ILLNESS: This is a 51-year-old woman with history of uncontrolled type 2 diabetes mellitus complicated by retinopathy and polyneuropathy, chronic back pain on oxycodone, history of h ypertension, asthma, recurrent falls, had history of colon cancer status post partial colectomy in and pancreatic cancer status post Whipple's in 1990, presented with abdominal pain and vomiting, r ecurrent yellow bilious. GI is on board who mentioned that she is likely having more of a diabetic r elated gastroparesis, superimposed underlying chronic opiate usage. I was consulted to evaluate her neuropathy. She mentions it as burning, tingling, numbness in the lower extremities as well as the h ands and has been having a poor balance, likely secondary to uncontrolled diabetic peripheral neuropa thy. She is on Lyrica 100 mg p.o. t.i.d. for neuropathic pain relief and she is on chronic opiates w hich will not help her neuropathy. She also has episodes of hyperglycemia and her A1c is 16.6 indica ting poorly controlled diabetes. Currently, she is moving all extremities equally. Denies any acute pain at this time. She is on Skelaxin 800 mg p.o. q.i.d. for chronic back pain. REVIEW OF SYSTEMS: A 14-point review of systems negative except in the HPI. ALLERGIES: ACETAMINOPHEN, CODEINE AND IODINE. PAST MEDICAL HISTORY: Uncontrolled diabetes complicated by retinopathy, polyneuropathy, chronic back on oxycodone, hypertension, asthma, recurrent falls, colon cancer status post partial colectomy in , pancreatic cancer status post Whipple's in 1990. MEDICATIONS: Reviewed via nurse's reconciliation sheet. FAMILY HISTORY: Noncontributory. SOCIAL HISTORY: She smokes 1 pack of cigarettes per day for the past 20 years. She denies any alcoh ol or marijuana use. PHYSICAL EXAMINATION: VITAL SIGNS: Temperature 98, pulse rate 47, blood pressure 132/77, respiratory rate 17, oxygen 95% o n room air. GENERAL: The patient is sitting up in bed in no acute distress. HEENT: Atraumatic, normocephalic. PERRLA. Extraocular muscles intact. NECK: Supple, no JVD, no adenopathy noted. LUNGS: Clear to auscultation. No adventitious sounds. HEART: S1, S2, normal rate and rhythm. No murmurs, rubs, or gallops. ABDOMEN: Soft, nontender and nondistended. Bowel sounds are present. EXTREMITIES: No clubbing, no cyanosis. Peripheral pulses 2+ felt bilaterally. NEUROLOGIC: The patient is alert, oriented to person, place, month and year. Speech is fluent, with out any errors. Cranial nerves II-XII are intact. MOTOR: Moves all extremities equally. Has atrophy of her distal lower extremity musculature. SENSORY: Decreased light touch. . DTRs are 1+ throughout and absent at the knees and ankles. COORDINATION: Hgzdyp-cb-duam intact. GAIT: Deferred for now. LABORATORY DATA: A1c 16.6, sodium is 137, potassium 3.9, chloride 104, carbon dioxide 24, BUN of 14. creatinine 0.6, random glucose 295. ASSESSMENT AND PLAN: This is a 51-year-old woman who is with history of uncontrolle d type 2 diabetes mellitus complicated by retinopathy and polyneuropathy on Lyrica 100 mg p.o. t.i.d. , chronic back pain on oxycodone, hypertension, asthma and recurrent falls, colon cancer status post partial colectomy in 1989 and pancreatic cancer status post Whipple surgery in 1990, who presented wi th abdominal pain and vomiting and found to have episodes of hyperglycemia, marijuana and drug w ith a recent A1c of 16.6 and was consulted for neuropathy. Her neuropathy is secondary to polyneurop athy from uncontrolled diabetes and also causing poor balance. Her abdominal pain with vomiting is likely secondary to gastroparesis from possible complication of h er underlying Whipple's as well as poorly controlled diabetes and as well as chronic opiate usage. A t this time, recommend: 1. Continue Lyrica 75 mg p.o. t.i.d. and add alpha lipoic acid 600 mg p.o. t.i.d. for neuropathic pa in relief. Could consider Cymbalta 30 mg p.o. at bedtime, only after she has been tapered off her pa in medications as an outpatient by her pain management physician for neuropathic pain. 2. Recommend physical therapy for underlying chronic back pain which will most likely be the best th erapy for her. Could recommend some form of subacute rehab. 3. Keep all blood sugars between 140-180, diabetic diet advised. She has an A1c of 16.6 and again p oorly controlled diabetes could benefit from a possible endocrinology consult since she has poorly co ntrolled diabetes. 4. Follow up with GI's recommendations in terms of her underlying gastroparesis. I counseled the pa fiona on marijuana cessation, counseled on her smoking cessation and would continue with supportive c are, antiemetics, IV fluids and PPIs. Thank you for this consult. Silvio Rao MD cc: [id number] TT: 02/08/2017 17:43:01 Confirmation # [id number] Dictation # [id number] mn
[2017-02-09] MEDS: Morphine 4 mg/ml ISec IVP PRN ×3 (02:49→08:03)
--- NOTE | 2017-02-09 05:17 | CP.PCM.PN ---
Subjective - Date & Time of Evaluation Date of Evaluation: 02/09/17 Time of Evaluation: 05:15 - Subjective Subjective: S:Nausea. Received Zofran 4 mg IV. Still feeling nauseous. No other complaints. Pertinent medical record was reviewed. O: Last Vital Signs 3 Temp 98.7 F 02/08/17 16:00 Pulse 60 02/08/17 16:00 Resp 19 02/08/17 16:00 BP 107/55 L 02/08/17 16:00 Pulse Ox 100 02/08/17 16:00 Stable. Not in distress. ABD:No distension. A/P:Nausea. Reglan 10 mg IV x 1. Objective - Vital Signs/Intake and Output Vital Signs (last 24 hours): Temp Pulse Resp BP Pulse Ox 98.7 F 60 19 107/55 L 100 02/08/17 16:00 02/08/17 16:00 02/08/17 16:00 02/08/17 16:00 02/08/17 16:00 Intake and Output: 02/08/17 02/09/17 18:59 06:59 Intake Total 720 300 Balance 720 300 - Medications Medications: Current Medications Clonidine HCl (Catapres Tts1 0.1 Mg/24 Hr) 1 patch TD Q7D@1000 [facility] Last Admin: 02/08/17 09:41 Dose: Not Given Pantoprazole Sodium (Protonix 40mg Ivpb) 100 mls @ 200 mls/hr IVPB 0600 [facility] Sodium Chloride (Sodium Chloride 0.45%) 1,000 mls @ 40 mls/hr IV .Q24H [facility] Last Admin: 02/08/17 09:43 Dose: 40 mls/hr Insulin Human Regular (Humulin R Low) 0 units SC ACHS [facility] PRN Reason: Protocol Last Admin: 02/08/17 21:36 Dose: Not Given Metformin HCl (Glucophage) 1,000 mg PO BID [facility] Last Admin: 02/08/17 17:09 Dose: 1,000 mg Metoclopramide HCl (Reglan) 10 mg IVP ACHS [facility] Last Admin: 02/08/17 21:31 Dose: 10 mg Morphine Sulfate (Morphine) 3 mg IVP Q3H PRN PRN Reason: Pain, severe (8-10) Last Admin: 02/09/17 02:49 Dose: 3 mg Non-Formulary Medication (Metaxalone [Skelaxin]) 800 mg PO QID [facility] Last Admin: 02/08/17 21:30 Dose: 800 mg Ondansetron HCl (Zofran Inj) 4 mg IVP Q4H PRN PRN Reason: Nausea/Vomiting Last Admin: 02/09/17 02:49 Dose: 4 mg Pregabalin (Lyrica) 100 mg PO TID [facility] Last Admin: 02/08/17 17:07 Dose: 100 mg
[2017-02-09] MEDS ORDERED: Pantoprazole 40mg/100ml IVPB 100 ML IVPB SCH (06:00)
[2017-02-09 07:10] LABS: HEMATOCRIT 38.8 % (36.0-48.0); MEAN CELL VOLUME 84.5 fL (80.0-105.0); MEAN CORPUSCULAR HEMOGLOBIN 27.7 pg (25.0-35.0); MEAN CORPUSCULAR HGB CONC 32.7 g/dl (31.0-37.0); MEAN PLATELET VOLUME 9.6 fl (7.0-11.0); RED CELL DISTRIBUTION WIDTH 14.2 % (11.5-14.5); WHITE BLOOD COUNT 5.2 10^3/ul (4.5-11.0)
--- NOTE | 2017-02-09 07:25 | CP.PCM.PN ---
<Nidia Clay - Last Filed: 02/09/17 08:55> Subjective - Date & Time of Evaluation Date of Evaluation: 02/09/17 Time of Evaluation: 07:19 - Subjective Subjective: Gastroenterology Fellow/PGY4 Progress Note Patient continues to have abdominal "soreness". Denies persistent nausea. Tolerated clear liquids. Notes bilious vomitus associated with hypoglycemia improved after drinking orange juice. A 12-point review of systems negative except for as above. Objective - Vital Signs/Intake and Output Vital Signs (last 24 hours): Temp Pulse Resp BP Pulse Ox 98.7 F 60 19 107/55 L 100 02/08/17 16:00 02/08/17 16:00 02/08/17 16:00 02/08/17 16:00 02/08/17 16:00 Intake and Output: 02/09/17 02/09/17 06:59 18:59 Intake Total 1300 Balance 1300 - Medications Medications: Current Medications Clonidine HCl (Catapres Tts1 0.1 Mg/24 Hr) 1 patch TD Q7D@1000 [facility] Last Admin: 02/08/17 09:41 Dose: Not Given Pantoprazole Sodium (Protonix 40mg Ivpb) 100 mls @ 200 mls/hr IVPB 0600 [facility] Last Admin: 02/09/17 05:36 Dose: 200 mls/hr Sodium Chloride (Sodium Chloride 0.45%) 1,000 mls @ 40 mls/hr IV .Q24H [facility] Last Admin: 02/08/17 09:43 Dose: 40 mls/hr Insulin Human Regular (Humulin R Low) 0 units SC ACHS [facility] PRN Reason: Protocol Last Admin: 02/08/17 21:36 Dose: Not Given Metformin HCl (Glucophage) 1,000 mg PO BID [facility] Last Admin: 02/08/17 17:09 Dose: 1,000 mg Metoclopramide HCl (Reglan) 10 mg IVP ACHS [facility] Last Admin: 02/08/17 21:31 Dose: 10 mg Morphine Sulfate (Morphine) 3 mg IVP Q3H PRN PRN Reason: Pain, severe (8-10) Last Admin: 02/09/17 05:40 Dose: 3 mg Non-Formulary Medication (Metaxalone [Skelaxin]) 800 mg PO QID [facility] Last Admin: 02/08/17 21:30 Dose: 800 mg Ondansetron HCl (Zofran Inj) 4 mg IVP Q4H PRN PRN Reason: Nausea/Vomiting Last Admin: 02/09/17 02:49 Dose: 4 mg Pregabalin (Lyrica) 100 mg PO TID [facility] Last Admin: 02/08/17 17:07 Dose: 100 mg - Labs Labs: 02/09/17 06:30 - Constitutional Appears: Non-toxic, No Acute Distress - Head Exam Head Exam: ATRAUMATIC, NORMOCEPHALIC - Eye Exam Eye Exam: EOMI, PERRL Pupil Exam: PERRL. absent: Miosis, Mydriatic - ENT Exam ENT Exam: Mucous Membranes Moist, Normal Oropharynx - Neck Exam Neck Exam: Full ROM, Normal Inspection - Respiratory Exam Respiratory Exam: Clear to Ausculation Bilateral. absent: Rales, Rhonchi, Wheezes - Cardiovascular Exam Cardiovascular Exam: RRR, +S1, +S2. absent: Gallop, Rubs - GI/Abdominal Exam GI & Abdominal Exam: Soft, Tenderness, Normal Bowel Sounds. absent: Distended, Firm, Guarding, Rigid, Organomegaly, Rebound Additional comments: periumbilical discomfort to palpation - Extremities Exam Extremities Exam: Full ROM. 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 Laboratory findings showing uncontrolled hyperglycemia and marijuana on urine drug screen. Recent discharge 01/14/17 with hyperglycemia secondary to dietary noncompliance, last A1c 17.3 (04/2016). Last EGD and colonoscopy 2007 at outside facility endorsed to be normal. Plan: >likely multifactorial: possible gastroparesis, cannabinoid use, potential complication of history of Whipple's >A1c 16.6 >continue Reglan as needed >on regular diet- cardiac/DM >small frequent meals with glycemic control >diabetic education >will benefit from elective EGD/colonoscopy <Gerber Mejia - Last Filed: 02/09/17 12:55> Objective - Vital Signs/Intake and Output Vital Signs (last 24 hours): Temp Pulse Resp BP Pulse Ox 98.4 F 58 L 22 118/23 L 99 02/09/17 06:00 02/09/17 06:00 02/09/17 06:00 02/09/17 06:00 02/09/17 06:00 Intake and Output: 02/09/17 02/09/17 06:59 18:59 Intake Total 1300 Balance 1300 - Medications Medications: Current Medications Clonidine HCl (Catapres Tts1 0.1 Mg/24 Hr) 1 patch TD Q7D@1000 [facility] Last Admin: 02/08/17 09:41 Dose: Not Given Pantoprazole Sodium (Protonix 40mg Ivpb) 100 mls @ 200 mls/hr IVPB 0600 [facility] Last Admin: 02/09/17 05:36 Dose: 200 mls/hr Sodium Chloride (Sodium Chloride 0.45%) 1,000 mls @ 40 mls/hr IV .Q24H [facility] Last Admin: 02/08/17 09:43 Dose: 40 mls/hr Insulin Human Regular (Humulin R Low) 0 units SC ACHS [facility] PRN Reason: Protocol Last Admin: 02/09/17 11:05 Dose: 3 units Metformin HCl (Glucophage) 1,000 mg PO BID [facility] Last Admin: 02/09/17 09:56 Dose: 1,000 mg Metoclopramide HCl (Reglan) 10 mg IVP ACHS [facility] Last Admin: 02/09/17 11:05 Dose: 10 mg Non-Formulary Medication (Metaxalone [Skelaxin]) 800 mg PO QID [facility] Last Admin: 02/09/17 09:56 Dose: 800 mg Ondansetron HCl (Zofran Inj) 4 mg IVP Q4H PRN PRN Reason: Nausea/Vomiting Last Admin: 02/09/17 02:49 Dose: 4 mg Oxycodone HCl (Oxycontin Extended Release Tab) 160 mg PO Q12H [facility] Last Admin: 02/09/17 10:00 Dose: 160 mg Pregabalin (Lyrica) 100 mg PO TID [facility] Last Admin: 02/09/17 09:56 Dose: 100 mg Sitagliptin Phosphate (Januvia) 50 mg PO DAILY [facility] Last Admin: 02/09/17 09:56 Dose: 50 mg - Labs Labs: 02/09/17 06:30 02/09/17 06:30 Attending/Attestation - Attestation I have personally seen and examined this patient.: Yes I have fully participated in the care of the patient.: Yes I have reviewed all pertinent clinical information, including history, physical exam and plan: Yes Notes (Text): 02/09/17 12:55 51 year old female with history of DMII, Chronic back pain with opiate use, HTN , Asthma, CRC s/p partial colectomy, pancreatic cancer s/p whipple 1990 admitted with abdominal pain and vomiting. 1. Gastroparesis Plan: -likely multifactorial, in the setting of chronic opiate use and poorly controlled DM/Hyperglycemia as well as h/o Whipple surgery, and recent marijuana -recommend supportive care -reglan therapy as prokinectic -advised against marijuana use -recommend elective outpatient egd/colon -CT abdomen/pelvis from last year reviewed, were unremarkable at that time -advance diet as tolerated -small frequent meals -ok for discharge
[2017-02-09 07:30] LABS: ALB/GLOB RATIO 1.2 (1.1-1.8); ALKALINE PHOSPHATASE 103 U/L (38-133); ALT/SGPT 29 U/L (7-56); AST/SGOT 14 U/L (15-39); BILIRUBIN,TOTAL 0.7 mg/dL (0.2-1.3); BLOOD UREA NITROGEN 9 mg/dL (7-21); CALCIUM 8.6 mg/dL (8.4-10.5); CARBON DIOXIDE 24 mmol/L (21-33); CHLORIDE 105 mmol/L (98-107); GFR AFRICAN-AMERICAN > 60; POTASSIUM 3.7 mmol/L (3.6-5.0); SODIUM 139 mmol/L (132-148); TOTAL PROTEIN 6.5 g/dL (5.8-8.3)
[2017-02-09 07:31] LABS: GLUCOSE,RANDOM 334 mg/dL (70-110)
[2017-02-09 07:44] VITALS: BP 118/23; PULSE 58; RESP 22; TEMP 98.4; O2SAT 99
[2017-02-09] MEDS: Insulin Reg-LOW-Coverage SC SCH ×2 (08:02→11:05)
[2017-02-09] MEDS ORDERED: oxyCODONE 80 mg ER Tab (oxyCONTIN) PO SCH (08:30)
--- NOTE | 2017-02-09 08:34 | DS ---
She is walking around the room. She is going to the bathroom. She is a little bit hungry. She did throw up once yesterday. I increased her diet to regular, made her 2 gram sodium, low carbohydrate diet. If she can keep the food down we will discharge her today, that is what GI said. PHYSICAL EXAMINATION: VITAL SIGNS: She has 98.4 temp, 58 pulse, 118/23 blood pressure, 22 respiratory rate, 99% O2 sat on room air. HEENT: Head is atraumatic, normocephalic. Throat is moist. NECK: Supple. HEART: Regular rate. LUNGS: Decreased breath sounds, but clear to auscultation. ABDOMEN: Soft, mildly obese, nontender, positive bowel sounds. EXTREMITIES: No edema. MEDICATIONS: She is currently on Catapres, Glucophage, insulin coverage, Lyrica , Skelaxin, morphine which we are going to stop Protonix, Reglan, IV fluids, Zofran and I added Januvia. LABORATORY DATA: She has a white count of 5.2, hemoglobin 12.7, hematocrit 38.8 , platelets of 200; 139 sodium, potassium 3.7, BUN is 9, creatinine . GFR is greater than 60, but the chart blood sugars are 295 and 334. I added Januvia to her medication list with Glucophage. Calcium is 8.6, total bili is 0.7, AST is 14, ALT is 29, alk phos 103, total protein 6.5 and vitamin B12 is 301. She is also a marijuana smoker. I asked her to quit. I am hoping that she will eat well and be able to be discharged later today after lunch. We will call in physical therapy to see if they think she needs subacute rehab, but she was walking around the room fairly well and that was for the back pain which she is dealing with. We will continue with aggressive treatment and care. Hopefully, she will be discharged later this afternoon. Mayur Mcclendon DO cc: [id number] TT: 02/09/2017 08:33:48 tammy WOOTEN
[2017-02-09] MEDS: METAXALONE 800 MG PO SCH (09:56)
== END 2017-02-09 15:21 | disposition home or self-care (01) ==
LOC: ED 23:23 → ERH 02-07 01:40 → 3RNO 02-07 02:26 → OBSVTOIN 02-08 08:00 → INTOOBSV 02-08 08:00
PROVIDERS: ADMIT Family Medicine; ATTEND Family Medicine
DX: E11.43 Type 2 diabetes mellitus with diabetic autonomic (poly)neuropathy (principal); K31.84 Gastroparesis; E11.65 Type 2 diabetes mellitus with hyperglycemia; I10 Essential (primary) hypertension; E13.10 Other specified diabetes mellitus with ketoacidosis without coma; E11.42 Type 2 diabetes mellitus with diabetic polyneuropathy; E11.319 Type 2 diabetes mellitus with unspecified diabetic retinopathy without macular edema; Z85.038 Personal history of other malignant neoplasm of large intestine; Z85.07 Personal history of malignant neoplasm of pancreas; F12.90 Cannabis use, unspecified, uncomplicated; F17.210 Nicotine dependence, cigarettes, uncomplicated; G89.29 Other chronic pain; J44.9 Chronic obstructive pulmonary disease, unspecified; J45.909 Unspecified asthma, uncomplicated; K21.9 Gastro-esophageal reflux disease without esophagitis; R29.6 Repeated falls; Z79.891 Long term (current) use of opiate analgesic; Z79.899 Other long term (current) drug therapy; Z80.0 Family history of malignant neoplasm of digestive organs; Z80.1 Family history of malignant neoplasm of trachea, bronchus and lung; Z83.3 Family history of diabetes mellitus; Z87.440 Personal history of urinary (tract) infections; Z90.411 Acquired partial absence of pancreas; Z90.49 Acquired absence of other specified parts of digestive tract; Z91.11 Patient's noncompliance with dietary regimen; R11.2 Nausea with vomiting, unspecified; R19.7 Diarrhea, unspecified; R10.9 Unspecified abdominal pain; Z86.19 Personal history of other infectious and parasitic diseases; Z88.6 Allergy status to analgesic agent; Z88.5 Allergy status to narcotic agent; Z88.8 Allergy status to other drugs, medicaments and biological substances
CPT/HCPCS: 36415; 71010; 80053; 81001; 82607; 82948; 83036; 83690; 83921; 84484; 85025; 85027; 93005; 96374; 96375; 96376; 99285; C9113; G0378; G0480; J1170; J2270; J2405; J2765; J7030; J7040

== ENCOUNTER 2017-05-24 14:14 | Inpatient (IN) | payer BC, OTHER ==
[2017-05-24] MEDS ORDERED: Sodium Chloride 0.9% 1,000 ML IV STA ×2 (14:25→15:43)
--- NOTE | 2017-05-24 14:26 | ED PDOC ---
Arrival/HPI - General Chief Complaint: GI Problem Time Seen by Provider: 05/24/17 14:25 Historian: Patient - History of Present Illness Narrative History of Present Illness (Text): 05/24/17 14:33 Marizol Parker is a 51 year old female, whose past medical history includes hypertension, diabetes, gastroparesis, asthma, chronic pain, colon cancer in remission, and peripheral neuropathy, who presents to the emergency department sent in by PMD for further evaluation of abdominal pain, vomiting, and diarrhea. Patient went to PMD's office this morning for current symptoms but finger stick level was found to be greater than 400. She reports that her insulin was changed and she was instructed to come to the ED for any worsening symptoms. Patient denies chest pain, shortness of breath, dysuria, flank pain, fever. PMD: Dr. Mcclendon Time/Duration: 4-6 hours Symptom Onset: Gradual Symptom Course: Unchanged Severity Level: Moderate Activities at Onset: Light Context: Home Past Medical History - Provider Review Nursing Documentation Reviewed: Yes - Infectious Disease Hx of Infectious Diseases: None - Tetanus Immunization Tetanus Immunization: Unknown - Cardiac Hx Hypertension: Yes - Pulmonary Hx Chronic Obstructive Pulmonary Disease (COPD): Yes - Neurological Hx Neurological Disorder: No - HEENT Hx HEENT Disorder: No - Renal Hx Renal Disorder: No - Endocrine/Metabolic Hx Diabetes Mellitus Type 2: Yes - Hematological/Oncological Hx Blood Disorders: No Hx Cancer: Yes (colon /denies chemo or radiation) - Integumentary Hx Dermatological Disorder: No - Musculoskeletal/Rheumatological Hx Falls: Yes - Gastrointestinal Hx Gastrointestinal Disorders: Yes Hx Gastroesophageal Reflux: Yes Other/Comment: Colon CA- WITH SURGERY-WHIPPLE SURGERY - Genitourinary/Gynecological Hx Genitourinary Disorders: Yes Hx Urinary Tract Infection: Yes Other/Comment: H/O VAGINAL CANDIDIASIS - Psychiatric Hx Depression: No Hx Substance Use: No (pt denies) - Surgical History Other/Comment: CA Colon - whipple,CESEREAN X 1 - Anesthesia Hx Anesthesia: No Hx Anesthesia Reactions: No Hx Malignant Hyperthermia: No - Suicidal Assessment Feels Threatened In Home Enviroment: No Family/Social History - Physician Review Nursing Documentation Reviewed: Yes Family/Social History: No Known Family HX Smoking Status: Heavy Smoker > 10 Cigarettes Daily Hx Alcohol Use: No (pt denies) Hx Substance Use: No (pt denies) Hx Substance Use Treatment: Yes Allergies/Home Meds Allergies/Adverse Reactions: Allergies acetaminophen Allergy (Verified 02/06/17 23:34) RASH codeine Allergy (Verified 02/06/17 23:34) RASH iodine Allergy (Verified 02/06/17 23:34) RASH Home Medications: Home Meds Medication Instructions Recorded Confirmed Enalapril Maleate 5 mg PO DAILY 05/21/14 02/07/17 Metformin HCl 1,000 mg PO BID 05/21/14 02/07/17 Oxycodone HCl/Acetaminophen 1 tab PO Q8 PRN 04/27/16 02/07/17 [Percocet 5-325 mg Tablet] Hydroxyzine Pamoate 100 mg PO DAILY 02/06/17 02/07/17 Metaxalone [Skelaxin] 800 mg PO QID 02/06/17 02/07/17 Omeprazole 20 mg PO DAILY 02/06/17 02/07/17 Oxycodone HCl [Oxycodone HCl ER] 160 mg PO Q12H 02/06/17 02/07/17 Simvastatin 20 mg PO DAILY 02/06/17 02/07/17 Lyrica 100 mg PO TID 02/07/17 02/07/17 Review of Systems - Physician Review All systems were reviewed & negative as marked: Yes - Review of Systems Constitutional: absent: Fevers, Night Sweats Eyes: absent: Vision Changes ENT: absent: Hearing Changes Respiratory: absent: SOB, Cough Cardiovascular: absent: Chest Pain Gastrointestinal: Abdominal Pain, Diarrhea, Vomiting Genitourinary Female: absent: Dysuria Musculoskeletal: absent: Back Pain, Neck Pain Skin: absent: Rash, Pruritis Neurological: absent: Headache Endocrine: absent: Diaphoresis Hemo/Lymphatic: absent: Adenopathy Psychiatric: absent: Depression Physical Exam Vital Signs Reviewed: Yes Vital Signs Temp Pulse Resp BP Pulse Ox 05/24/17 14:15 98.3 F 62 16 143/79 100 Temperature: Afebrile Blood Pressure: Normal Pulse: Regular Respiratory Rate: Normal Appearance: Positive for: Well-Appearing, Non-Toxic, Comfortable Pain Distress: None Mental Status: Positive for: Alert and Oriented X 3 Finger Stick Blood Glucose: 394 - Systems Exam Head: Present: Atraumatic, Normocephalic Pupils: Present: PERRL Extroacular Muscles: Present: EOMI Conjunctiva: Present: Normal Mouth: Present: Moist Mucous Membranes Neck: Present: Normal Range of Motion Respiratory/Chest: Present: Clear to Auscultation, Good Air Exchange. No: Respiratory Distress, Accessory Muscle Use Cardiovascular: Present: Regular Rate and Rhythm, Normal S1, S2. No: Murmurs Abdomen: No: Tenderness, Distention, Rebound, Guarding Back: Present: Normal Inspection Upper Extremity: Present: Normal Inspection. No: Cyanosis, Edema Lower Extremity: Present: Normal Inspection. No: Edema Neurological: Present: GCS=15, CN II-XII Intact, Speech Normal Skin: Present: Warm, Dry, Normal Color. No: Rashes Psychiatric: Present: Alert, Oriented x 3, Normal Insight, Normal Concentration Medical Decision Making ED Course and Treatment: 05/24/17 14:35 Impression: 51 year old female sent in by PMD for further evaluation of abdominal pain, vomiting, and diarrhea. Differential Diagnosis included but are not limited to: r/o DKA Plan: -- EKG -- Chest X-ray -- VBG -- Urinalysis -- Labs -- Morphine, Zofran, and IV fluids -- Reassess and disposition Prior Visits: Notes and results from previous visits were reviewed. Patient last seen in the ED on 02/06/17 for numbness in bilateral feet. Patient was admitted hospitalist care for further evaluation. Progress Notes: EKG shows NSR at 63bpm with sinus arrhythmia. No ST changes 05/24/17 15:40 Cxray negative. Patient is hyperglycemic with normal ph (7.3) and normal gap: 19. trop x 1 negative. 2L IVF ordered. 05/24/17 16:06 Patient has elevated lactate but no sirs criteria. Insulin ordered and repeat fs:281. P:UA. Patient is taking persistent vomiting. Abdomen continues to be soft NT/ND. Do not believe CT is needed at this time as patient reports symptoms are similar to prior episodes of gastroparesis and patient appears comfortable with normal vitals and with normal abdominal exam. Spoke to Dr. White. Renee accepted under Dr. Mayur Mcclendon's service 05/24/17 17:20 - Lab Interpretations Lab Results: 05/24/17 14:20 05/24/17 14:20 Lab Results 05/24/17 14:20: Sodium 136, Chloride 97 L, Potassium 4.2, Carbon Dioxide 24, Anion Gap 19, BUN 19, Creatinine 0.7, Est GFR ( Amer) > 60, Est GFR (Non- Af Amer) > 60, Random Glucose 449 H* D, Calcium 9.9, Phosphorus 4.2, Magnesium 1.5 L, Total Bilirubin 0.7, AST 22, ALT 21, Alkaline Phosphatase 119, Total Creatine Kinase 64, Troponin I < 0.01 D, Total Protein 7.3, Albumin 4.4, Globulin 2.9, Albumin/Globulin Ratio 1.5, Lipase 37 05/24/17 14:20: pO2 60 H, VBG pH 7.30 L, VBG pCO2 48.0, VBG HCO3 23.6, VBG Total CO2 25.1, VBG O2 Sat (Calc) 90.0 H, VBG Base Excess -3.2 L, VBG Potassium 4.8, Sodium 149.0 H, Chloride 88.0 L, Glucose 453 H* D, Lactate 3.7 H, FiO2 21.0 , Venous Blood Potassium 4.8 05/24/17 14:20: WBC 5.7, RBC 4.72, Hgb 13.3, Hct 38.5, MCV 81.6, MCH 28.2, MCHC 34.5, RDW 12.6, Plt Count 204, MPV 9.4, Gran % 70.5 H, Lymph % (Auto) 24.7, Andrew % (Auto) 4.4, Eos % (Auto) 0.2 L, Baso % (Auto) 0.2, Gran # 3.99, Lymph # 1.4, Andrew # 0.3, Eos # 0.0, Baso # 0.01 - RAD Interpretation Radiology Orders: 05/24/17 14:25 CHEST PORTABLE [RAD] Stat - Medication Orders Current Medication Orders: Discontinued Medications Sodium Chloride (Sodium Chloride 0.9%) 1,000 mls @ 999 mls/hr IV .Q1H1M STA Stop: 05/24/17 15:25 Last Admin: 05/24/17 14:35 Dose: 999 mls/hr Sodium Chloride (Sodium Chloride 0.9%) 1,000 mls @ 999 mls/hr IV .Q1H1M STA Stop: 05/24/17 16:43 Insulin Human Regular (Humulin R) 8 units IV STAT STA Stop: 05/24/17 15:43 Last Admin: 05/24/17 16:00 Dose: 8 units Metoclopramide HCl (Reglan) 10 mg IVP STAT STA Stop: 05/24/17 16:05 Morphine Sulfate (Morphine) 4 mg IVP STAT STA Stop: 05/24/17 14:34 Last Admin: 05/24/17 15:29 Dose: 4 mg Ondansetron HCl (Zofran Inj) 4 mg IVP STAT STA Stop: 05/24/17 14:34 Last Admin: 05/24/17 15:29 Dose: 4 mg Disposition/Present on Arrival - Present on Arrival Any Indicators Present on Arrival: Yes History of DVT/PE: No History of Uncontrolled Diabetes: Yes Urinary Catheter: No History of Decub. Ulcer: No History Surgical Site Infection Following: None - Disposition Have Diagnosis and Disposition been Completed?: Yes Diagnosis: Hyperglycemia, Intractable vomiting with nausea Disposition: HOSPITALIZED Disposition Time: 17:13 Patient Plan: Observation Patient Problems: Current Active Problems Problem Status Onset Hyperglycemia Acute Intractable vomiting with nausea Acute Condition: FAIR Referrals: Ronnell Sue MD [Primary Care Provider] - Follow up with primary Forms: [email or web address] (Bhutanese)
[2017-05-24] MEDS ORDERED: Morphine 4 mg/ml ISec IVP STA (14:33)
[2017-05-24 15:05] LABS: VENOUS BLOOD GAS BASE EXCESS -3.2 mmol/L (0.0-2.0); VENOUS BLOOD GAS PO2 60 mm/Hg (30-55)
[2017-05-24 15:10] LABS: BASO # 0.01 K/mm3 (0.0-2.0); BASO % 0.2 % (0.0-3.0); EOS % 0.2 % (1.5-5.0); GRAN # 3.99 (1.4-6.5); GRAN % 70.5 % (50.0-68.0); HEMOGLOBIN 13.3 gm/dL (12.0-16.0); LYMPH # 1.4 (1.2-3.4); LYMPH % 24.7 % (22.0-35.0); MEAN CELL VOLUME 81.6 fL (80.0-105.0); MEAN CORPUSCULAR HEMOGLOBIN 28.2 pg (25.0-35.0); MEAN CORPUSCULAR HGB CONC 34.5 g/dl (31.0-37.0); MEAN PLATELET VOLUME 9.4 fl (7.0-11.0); MONO # 0.3 (0.1-0.6); MONO % 4.4 % (1.0-6.0); PLATELET COUNT 204 10^3/uL (120.0-450.0); RBC 4.72 10^6/uL (3.5-6.1); RED CELL DISTRIBUTION WIDTH 12.6 % (11.5-14.5); WHITE BLOOD COUNT 5.7 10^3/ul (4.5-11.0)
[2017-05-24 15:20] LABS: ALB/GLOB RATIO 1.5 (1.1-1.8); ALBUMIN 4.4 g/dL (3.0-4.8); ALT/SGPT 21 U/L (7-56); AST/SGOT 22 U/L (15-39); BLOOD UREA NITROGEN 19 mg/dL (7-21); CALCIUM 9.9 mg/dL (8.4-10.5); GFR AFRICAN-AMERICAN > 60; GFR NON-AFRICAN AMERICAN > 60; LIPASE 37 U/L (23-300); MAGNESIUM 1.5 mg/dL (1.7-2.2)
--- NOTE | 2017-05-24 15:27 | RAD ---
HISTORY: hyperglycemia COMPARISON: 02/07/2017 FINDINGS: LUNGS: No active pulmonary disease. PLEURA: No significant pleural effusion identified, no pneumothorax apparent. CARDIOVASCULAR: Normal. OSSEOUS STRUCTURES: No significant abnormalities. VISUALIZED UPPER ABDOMEN: Normal. OTHER FINDINGS: None. IMPRESSION: No active disease.
[2017-05-24 15:39] LABS: TROPONIN I < 0.01 ng/mL
[2017-05-24] MEDS ORDERED: Insulin Regular 1 UNITS/0.01 ML ML IV STA (15:42)
[2017-05-24 18:11] LABS: URINE BILIRUBIN NEGATIVE (NEGATIVE); URINE BLOOD NEGATIVE (NEGATIVE); URINE GLUCOSE (UA) >=1000 mg/dL (NEGATIVE); URINE LEUKOCYTE ESTERASE NEGATIVE Leu/uL (NEGATIVE); URINE NITRATE NEGATIVE (NEGATIVE); URINE PROTEIN TRACE mg/dL (<30 mg/dL); URINE UROBILINOGEN 0.2 E.U./dL (<1 E.U./dL)
[2017-05-24 18:25] LABS: URINE APPEARANCE CLEAR (CLEAR); URINE COLOR YELLOW (YELLOW)
[2017-05-24 18:30] LABS: URINE RBC 0 - 2 /hpf (0-2); URINE WBC 0 - 2 /hpf (0-6)
[2017-05-24] MEDS ORDERED: Sodium Chloride 0.45% 1,000 ML IV SCH (18:30)
[2017-05-24 21:00] LABS: VENOUS BLOOD GAS BASE EXCESS 2.3 mmol/L (0.0-2.0); VENOUS BLOOD GAS PO2 215 mm/Hg (30-55); VENOUS BLOOD PH 7.44 (7.32-7.43)
[2017-05-24] MEDS ORDERED: Insulin Reg-HIGH-Coverage SC SCH (22:00)
[2017-05-24] MEDS ORDERED: Dextrose 5%/0.45% NS 1,000 ML IV SCH (22:45)
[2017-05-25] VITALS: BMI 36.3
--- NOTE | 2017-05-25 02:55 | HP ---
HISTORY OF PRESENT ILLNESS: I was called into the emergency room to see Ms. Fontana. She comes in with history of having abdominal pain with nausea and vomiting and diarrhea and not feeling well. She had also a blood sugar of 400 and she was told to come to emergency room. PAST MEDICAL HISTORY: She has a past medical history, which includes hypertension, diabetes, gastroparesis, asthma, chronic pain, colon cancer in remission, peripheral neuropathy, COPD, hypertension, diabetes, colon cancer, multiple falls, reflux, Whipple surgery for colon cancer in the past, genitourinary problems, history of vaginal Candidiasis, , and colon cancer Whipple surgery. FAMILY HISTORY: Hypertension and diabetes in the family. SOCIAL HISTORY: Still smokes, denies alcohol, no drugs. ALLERGIES: TYLENOL, CODEINE, AND IODINE. MEDICATIONS: Enalapril, metformin, Percocet, hydroxyzine, Skelaxin, omeprazole, oxycodone, simvastatin, and Lyrica. REVIEW OF SYSTEMS: No acute vision changes or hearing changes. No fevers or night sweats. No shortness of breath or cough. No chest pain. She does have abdominal pain with diarrhea and vomiting, it is persistent. No problems urinating. No back pain or neck pain. No skin itching or rashes. No headache or dizziness. No sweating. No adenopathy, depression or anxiety. PHYSICAL EXAMINATION GENERAL: She is well appearing, nontoxic, comfortable. Alert and oriented x3. Blood sugar is around 394 to 400. VITAL SIGNS: Temperature 98.3, pulse 62, respiratory rate 16, blood pressure 143/79, 100% on O2 sat on room air. HEENT: Head is atraumatic and normocephalic. Extraocular muscles are intact. Pupils are equally reactive to light and accommodation. Throat is moist. NECK: Supple. Thyroid midline. No palpable lymphadenopathy. CARDIOPULMONARY: Regular rate, normal S1 and S2. LUNGS: Clear to auscultation. Fair exchange. ABDOMEN: Mild discomfort all over. No guarding and no rebound. Decreased bowel sounds. EXTREMITIES: No edema. NEUROLOGIC: GCS is 15. Cranial nerves II through XII grossly intact. Alert and oriented x3. SKIN: Warm and dry. No rashes. LABORATORY DATA AND IMAGING: She had multiple tests done. Sodium 136, potassium 4.2, BUN 19, creatinine 0.7, GFR is greater than 60, sugar is 449, we gave her lots of insulin in the ER, calcium is 9.9, phosphorus 4.2, magnesium 1.5, total bilirubin 0.7, AST 22, ALT 21, alk phos 119, total protein is 7.3, total creatinine kinase is 64, troponin I is less than 0.01, albumin 4.4, globulin 2.9, lipase 37. White count 5.7, hemoglobin 13.3, hematocrit 35.5, platelets 204. Chest x-ray showed no acute disease. IMPRESSION: She is being placed here for gastroparesis, abdominal pain, diabetes, out of control high blood sugars. We will have a consult with endocrinology and gastroenterology, IV fluids, n.p.o. Insulin coverage, We will check her labs tomorrow. Hopefully, she will improve. Hopefully, she will not need an NG tube. Mayur Mcclendon DO MTDD
--- NOTE | 2017-05-25 02:57 | CON ---
DATE: 05/24/2017 LOCATION: Room 373. HISTORY OF PRESENT ILLNESS: This is a 51-year-old female with known history of type 2 insulin-requiring diabetes, presents here with intractable vomiting episodes and supervening diffuse abdominal pain with nausea, dyspepsia and loose watery diarrhea and was seen in her primary physician's office today with marked hyperglycemic accelerations and so has been admitted for further workup and management. PAST MEDICAL HISTORY: As mentioned above, history of type 2 insulin-requiring diabetes, currently on combination of Lantus given as 16 units subcu at bedtime daily with metformin given as 1000 mg b.i.d., and Januvia at 50 mg once daily. History of hypertension and dyslipidemia, history of diabetic retinopathy and polyneuropathy with chronic low back pain and underlying lumbar disc disease. She also admits to painful lower extremity paresthesias and is currently on multiple medications for alleviation of the same. She is on a high dose of Lyrica, given as 100 mg t.i.d. with Skelaxin at 800 mg t.id. with Percocet taken as 1 tablet every 8 hours p.r.n. for severe pain. History of chronic gastritis and also underlying diabetic gastroparesis with previous admissions for exacerbations of the same. History of chronic obstructive lung disease and chronic asthmatic bronchitis. She also has significant history of colon cancer and underwent a surgical colonic resection with no further chemo or radiation therapy and is in apparent remission at this time. FAMILY HISTORY: Positive for hypertension and diabetes. SOCIAL HISTORY: The patient has supportive family and admits to ongoing nicotine dependence. No other substance use. REVIEW OF SYSTEMS: As mentioned above. Admits to generalized body weakness with easy fatigability and tiredness and suboptimal energy level. Also admits to episodic dizziness and lightheadedness, worse on the day of admission. No chest pain, palpitations or PND. Her oral intake, however, has been variable with nausea, dyspepsia and diffuse abdominal pain with supervening intractable vomiting and diarrhea as mentioned. She also admits to painful paresthesia, especially nocturnally. PHYSICAL EXAMINATION GENERAL: This is an overweight female, in no apparent distress. VITAL SIGNS: Blood pressure of 150/90, pulse of 100 beats per minute and regular, temperature 98, and respirations of 20, height is 5 feet 4 inches, and weight is 212 pounds. HEENT: Head is normocephalic. Eyes anicteric with pink conjunctivae. Funduscopy not possible at this time. Ears, nose and throat otherwise normal. NECK: Supple. Thyroid gland is normal in size. No carotid bruits or cervical adenopathy. CARDIOPULMONARY: Adynamic precordium. S1 and S2 is rapid and regular. LUNGS: Clear to auscultation. ABDOMEN: Flat and soft with positive bowel sounds and positive direct tenderness, but no evidence of rebound. EXTREMITIES: No peripheral edema. Pulses are +2 bilaterally. LABORATORY DATA: Her chemistry showed BUN of 19, sodium 136, potassium 4.2, chloride 97, CO2 of 24, glucose 449, and creatinine 0.7. Her glucose levels have ranged from 176 to 281 mg/dL, lipase is 37, magnesium is 1.5, calcium is 9.9, phosphorus is 4.2. ASSESSMENT: This is a 51-year-old female with uncontrolled and decompensated type 2 insulin-requiring diabetes, presenting here with marked hyperglycemic accelerations, related to a subtherapeutic insulin regimen and has concomitant exacerbation of diabetic gastroparesis and background of recurrent admissions for the same. She also has diabetic microvascular complications of retinopathy and painful *------* neuropathy. She also has significant history of diabetic gastroparesis with recurrent admission for the same. PLAN OF MANAGEMENT: As discussed with the patient and the staff, we will modify her current coverage scale and switch her over to a low dose algorithm, using Humalog insulin as she has been kept n.p.o. today and overnight as noted. We will change her IVs to D5 and a half normal saline at 80 mL per hour and we will obtain serial chemistries and supplement accordingly as needed. We will consider the addition of basal insulin after oral intake is advanced accordingly. We will discontinue the Januvia medication for now as she is n.p.o. We will obtain hemoglobin A1c to confirm her prior glycemic control and baseline thyroid function studies and lipid panel will be ordered. She maybe undergoing a GI workup and once this is completed and done, then we will switch her back to more physiologic basal and bolus insulin regimen as indicated. We will also *------* addition of metformin and Januvia as indicated. We will obtain serial chemistries and supplement accordingly as needed and we will adjust IV fluids accordingly. We also initiate diabetic education and dietary instructions at the time of this admission, especially with weight loss efforts to be reinforced at this time. Adali Ferguson MD
[2017-05-25] MEDS: Pantoprazole 40mg/100ml IVPB 40 MG/100 ML BAG IVPB SCH (06:35)
[2017-05-25] MEDS: Insulin Lispro (humaLOG) LOW Coverage SC SCH ×4 (08:37→22:04)
--- NOTE | 2017-05-25 09:39 | CARD ---
APPROVED REPORT EKG Measurement Heart [id number] <Conclusion> Normal sinus rhythm with sinus arrhythmia NSSTW changes No change
--- NOTE | 2017-05-25 09:42 | CP.PCM.CON ---
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 Patient describes three episodes of bilious vomitus on Wednesday. PCP visit Wednesday with glucose reading noted to be over 400 with change in insulin regimen prescribed. Patient instructed to present to ER due to persistent bilious vomitus with associated chills and sweats. She notes associated upper abdomen discomfort due to abdominal contractions during retching. Denies hematemesis, diarrhea, constipation, melena, hematochezia, bloating, indigestion, fever, recent travel, or sick contacts. Denies marijuana use. Notes daily bowel movement without straining. Notes recent antibiotics for a gluteal abscess with an estimated 10 day stay at [facility], discharged first week of March. States she followed up with Dr Ricketts, pancreatic surgeon, during last week of March with instruction to follow up with general surgeon ( scheduled in next two weeks) prior to repeat endoscopy evaluation. Last EGD and colonoscopy 2007 at outside facility endorsed to be normal. Family-Mother and aunt-lung cancer, uncle-pancreatic cancer diagnosed over 60 years of age, brother- colon cancer- diagnosed before 50 years of age Social- 20 pack years, marijuana use , endorsed cessation since January 2017, denies alcohol use Surgery- Whipple's, partial colectomy, hernia repair, Review of Systems - Review of Systems Review of Systems: 12-point review of systems negative except for as above Past Patient History - Infectious Disease Hx of Infectious Diseases: None - Tetanus Immunizations Tetanus Immunization: Unknown - Past Social History Smoking Status: Heavy Smoker > 10 Cigarettes Daily - CARDIAC Hx Cardiac Disorders: Yes Hx Hypertension: Yes - PULMONARY Hx Chronic Obstructive Pulmonary Disease (COPD): Yes - NEUROLOGICAL Hx Neurological Disorder: No - HEENT Hx HEENT Problems: No - RENAL Hx Chronic Kidney Disease: No - ENDOCRINE/METABOLIC Hx Diabetes Mellitus Type 2: Yes - HEMATOLOGICAL/ONCOLOGICAL Other/Comment: colon ca - INTEGUMENTARY Hx Dermatological Problems: No - MUSCULOSKELETAL/RHEUMATOLOGICAL Hx Musculoskeletal Disorders: Yes Hx Falls: Yes - GASTROINTESTINAL Hx Gastrointestinal Disorders: Yes Hx Gastroesophageal Reflux: Yes Other/Comment: colon ca with surgery - GENITOURINARY/GYNECOLOGICAL Hx Genitourinary Disorders: Yes Hx Urinary Tract Infection: Yes - PSYCHIATRIC Hx Psychophysiologic Disorder: No Hx Substance Use: Yes (use treatment) - SURGICAL HISTORY Hx Surgeries: Yes (colon ca) - ANESTHESIA Hx Anesthesia: No Hx Anesthesia Reactions: No Hx Malignant Hyperthermia: No Meds Allergies/Adverse Reactions: Allergies Allergy/AdvReac Type Severity Reaction Status Date / Time acetaminophen Allergy RASH Verified 02/06/17 23:34 codeine Allergy RASH Verified 02/06/17 23:34 iodine Allergy RASH Verified 02/06/17 23:34 - Medications Medications: Current Medications Pantoprazole Sodium (Protonix 40mg Ivpb) 40 mg in 100 mls @ 200 mls/hr IVPB 0600 [facility] Last Admin: 05/25/17 06:35 Dose: 200 mls/hr Dextrose/Sodium Chloride (Dextrose 5%/0.45% Ns 1000 Ml) 1,000 mls @ 80 mls/hr IV .[id number] [facility] Last Admin: 05/24/17 22:53 Dose: 80 mls/hr Insulin Detemir (Levemir) 20 unit SC Q12H [facility] Insulin Human Lispro (Humalog Low) 0 units SC ACHS [facility] PRN Reason: Protocol Last Admin: 05/25/17 08:37 Dose: 1 units Ketorolac Tromethamine (Toradol) 30 mg IVP Q6H PRN PRN Reason: Pain, moderate (4-7) Last Admin: 05/25/17 03:32 Dose: 30 mg Lisinopril (Zestril) 5 mg PO DAILY [facility] Metoclopramide HCl (Reglan) 10 mg IVP ACHS [facility] Last Admin: 05/25/17 08:37 Dose: 10 mg Ondansetron HCl (Zofran Inj) 4 mg IVP Q4H PRN PRN Reason: Nausea/Vomiting Last Admin: 05/25/17 01:39 Dose: 4 mg Physical Exam - Constitutional Appears: Non-toxic, No Acute Distress - Head Exam Head Exam: ATRAUMATIC, NORMOCEPHALIC - Eye Exam Eye Exam: EOMI, PERRL Pupil Exam: PERRL. absent: Miosis, Mydriatic - ENT Exam ENT Exam: Mucous Membranes Moist, Normal Oropharynx - Neck Exam Neck exam: Positive for: Full Rom, Normal Inspection - Respiratory Exam Respiratory Exam: Clear to Auscultation Bilateral. absent: Rhonchi, Wheezes - Cardiovascular Exam Cardiovascular Exam: RRR, +S1, +S2. absent: Gallop, Rubs - GI/Abdominal Exam GI & Abdominal Exam: Normal Bowel Sounds, Soft, Tenderness. absent: Distended, Firm, Guarding, Organomegaly, Rebound, Rigid Additional comments: mild upper abdomen discomfort to palpation - Extremities Exam Extremities exam: Positive for: normal inspection. Negative for: pedal edema - Neurological Exam Neurological exam: Alert - Psychiatric Exam Psychiatric exam: Normal Affect, Normal Mood - Skin Skin Exam: Dry, Intact, Normal Color, Warm Results - Vital Signs Recent Vital Signs: Last Vital Signs Temp 99.3 F 05/24/17 21:09 Pulse 56 L 05/24/17 21:09 Resp 18 05/24/17 21:09 BP 139/78 05/24/17 21:09 Pulse Ox 100 05/24/17 18:55 - Labs Result Diagrams: 05/25/17 09:20 05/25/17 09:20 Labs: Laboratory Results - last 24 hr 05/24/17 05/24/17 05/25/17 20:50 21:58 07:39 pO2 215 H VBG pH 7.44 H VBG pCO2 39.0 L VBG HCO3 26.5 VBG Total CO2 27.7 VBG O2 Sat (Calc) 96.5 H VBG Base Excess 2.3 H VBG Potassium 4.1 Sodium 139.0 Chloride 106.0 Glucose 180 H Lactate 2.0 FiO2 21.0 POC Glucose (mg/dL) 176 H 440 H* Venous Blood Potassium 4.1 Assessment & Plan - Assessment and Plan (Free Text) Assessment: 51 year old female with history of chronic back pain on oxycodone, Hypertension , asthma, colon cancer s/p partial colectomy 1989 (no chemoradiation), pancreatic cancer s/p Whipple's 1990, and 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 Active treatment of hyperglycemia secondary to uncontrolled Diabetes. Followed up with Dr Ricketts, pancreatic surgeon in March with elective endoscopic evaluation after follow up with general surgeon for recent discharge end of March for gluteal abscess s/p I&D and antibiotic therapy (scheduled in next two weeks). Last EGD and colonoscopy 2008 at outside facility endorsed to be normal. Plan: >nausea/vomiting 2/2 uncontrolled Diabetes >Gastroparesis may be a complication of Whipple's procedure >ordered drug screen with previous marijuana use >Endocrine managing- managing insulin regimen, pending A1c >last A1c 16.6 01/2017 >improve glycemic control, endorsed medication compliance >trial clear liquid diet, advance as tolerated to low fat, diabetic, small, frequent meals >supportive care: antiemetics, IVFs, PPI >plan for repeat EGD evaluation with Dr. Ricketts in next month >will benefit from elective colonoscopy for CRC screening and history of colon cancer <Gerber Mejia - Last Filed: 05/25/17 19:32> Meds - Medications Medications: Current Medications Pantoprazole Sodium (Protonix 40mg Ivpb) 40 mg in 100 mls @ 200 mls/hr IVPB 0600 [facility] Last Admin: 05/25/17 06:35 Dose: 200 mls/hr Sodium Chloride (Sodium Chloride 0.45%) 1,000 mls @ 60 mls/hr IV .[id number] [facility] Last Admin: 05/25/17 12:31 Dose: 60 mls/hr Insulin Detemir (Levemir) 30 unit SC [facility] Insulin Human Lispro (Humalog Low) 0 units SC ACHS [facility] PRN Reason: Protocol Last Admin: 05/25/17 17:07 Dose: Not Given Insulin Human Lispro (Humalog) 6 units SC AC [facility] Last Admin: 05/25/17 17:08 Dose: 6 units Ketorolac Tromethamine (Toradol) 30 mg IVP Q6H PRN PRN Reason: Pain, moderate (4-7) Last Admin: 05/25/17 15:57 Dose: 30 mg Lisinopril (Zestril) 5 mg PO DAILY [facility] Last Admin: 05/25/17 10:04 Dose: 5 mg Metoclopramide HCl (Reglan) 10 mg IVP ACHS [facility] Last Admin: 05/25/17 16:02 Dose: 10 mg Morphine Sulfate (Morphine) 1 mg IVP Q3H PRN PRN Reason: Pain, severe (8-10) Last Admin: 05/25/17 17:43 Dose: 1 mg Ondansetron HCl (Zofran Inj) 4 mg IVP Q4H PRN PRN Reason: Nausea/Vomiting Last Admin: 05/25/17 16:02 Dose: 4 mg Zolpidem Tartrate (Ambien) 5 mg PO HS PRN; Protocol PRN Reason: Insomnia Results - Vital Signs Recent Vital Signs: Last Vital Signs Temp 98.9 F 05/25/17 16:30 Pulse 51 L 05/25/17 16:30 Resp 20 05/25/17 16:30 BP 126/75 05/25/17 16:30 Pulse Ox 96 05/25/17 16:30 - Labs Result Diagrams: 05/25/17 09:20 05/25/17 09:20 Labs: Laboratory Results - last 24 hr 05/25/17 15:45 POC Glucose (mg/dL) 143 H Attending/Attestation - Attestation I have personally seen and examined this patient.: Yes I have fully participated in the care of the patient.: Yes I have reviewed all pertinent clinical information: Yes Notes (Text): 05/25/17 19:28 51 year old female h/o chronic back pain on narcotics, poorly controlled DM, h/ o colon cancer s/p partial colectomy 1989, pancreatic cancer s/p Whipple's 1990 , admitted with uncontrolled DM and nausea/vomiting. 1. Gastroparesis Plan: -supportive measures including improved glycemic control, minimize narcotics, anti-emetics and prokinetics as needed -liquid diet and advance as tolerated to low fat / small freq meals -outpatient egd/colon scheduled with Dr. Ricketts
[2017-05-25 09:48] LABS: HEMOGLOBIN 12.9 gm/dL (12.0-16.0); MEAN CELL VOLUME 81.3 fL (80.0-105.0); MEAN CORPUSCULAR HGB CONC 34.4 g/dl (31.0-37.0); MEAN PLATELET VOLUME 9.3 fl (7.0-11.0); RBC 4.61 10^6/uL (3.5-6.1); RED CELL DISTRIBUTION WIDTH 12.8 % (11.5-14.5); WHITE BLOOD COUNT 4.3 10^3/ul (4.5-11.0)
[2017-05-25] MEDS ORDERED: Insulin Detemir 100 units/ml Vial (Levemir) SC SCH (10:00)
[2017-05-25 10:11] LABS: ALB/GLOB RATIO 1.5 (1.1-1.8); ALBUMIN 4.3 g/dL (3.0-4.8); ALT/SGPT 24 U/L (7-56); AST/SGOT 18 U/L (15-39); BLOOD UREA NITROGEN 22 mg/dL (7-21); CALCIUM 9.2 mg/dL (8.4-10.5); GFR AFRICAN-AMERICAN > 60; GFR NON-AFRICAN AMERICAN > 60; HDL CHOLESTEROL 45 mg/dL (29-60)
[2017-05-25 10:41] LABS: LDL CHOLESTEROL 179 mg/dL (0-129)
[2017-05-25] MEDS ORDERED: Sodium Chloride 0.45% 1,000 ML IV SCH (11:30)
--- NOTE | 2017-05-25 14:53 | PN ---
SUBJECTIVE: I saw Marizol, trying to walk holding onto the IV pole. She is very nauseous, threw up a little bit this morning, very constipated. She is asking for a Fleet enema. We will give her a Fleet enema. Just not comfortable yet. She is also having some abdominal pain and her blood sugars have been very high, being seen by the stomach doctor and the insurance marketing rep. MEDICATIONS: She is on dextrose IV, Fleet enema, insulin, Levemir, Protonix, Reglan, Toradol, Zestril, Zofran. PHYSICAL EXAMINATION: VITAL SIGNS: Temperature 98.8, pulse 60, blood pressure 140/50, respiratory rate 21, O2 saturation 99% on room air. HEENT: Head atraumatic, normocephalic. HEART: Regular rate. LUNGS: Decreased breath sounds but clear. ABDOMEN: Soft, mildly distended, nontender. No guarding. Decreased bowel sounds. EXTREMITIES: No edema. LABORATORY DATA: She has 4.3 white count, 12.9 hemoglobin, 37.5 hematocrit with 197 platelets. Labs were pending this morning, but her blood sugar is 440, see what Endocrinology wants to do with that, maybe stop the dextrose. IMPRESSION AND PLAN: She is being seen by Gastroenterology and Endocrinology. There is a liquid diet. We will see how she does with that. If she does well with that, maybe we will increase her to lunch for regular diet maybe and if we could do well with that, possibly discharge her today, not sure. We will discuss that with Gastroenterology and Endocrinology later. Otherwise, she is on observation status. We will change it to inpatient if we have to keep her, if she throws up, and cannot tolerate diet. Mayur Mcclendon DO
--- NOTE | 2017-05-25 15:11 | CP.PCM.PN ---
Subjective - Date & Time of Evaluation Date of Evaluation: 05/25/17 Time of Evaluation: 15:09 - Subjective Subjective: 20 G angiocath inserted in right EJ with good flow and return for meds and ivf. Objective - Vital Signs/Intake and Output Vital Signs (last 24 hours): Temp Pulse Resp BP Pulse Ox 98.8 F 60 21 140/50 L 99 05/25/17 06:00 05/25/17 06:00 05/25/17 06:00 05/25/17 06:00 05/25/17 06:00 - Medications Medications: Current Medications Pantoprazole Sodium (Protonix 40mg Ivpb) 40 mg in 100 mls @ 200 mls/hr IVPB 0600 [facility] Last Admin: 05/25/17 06:35 Dose: 200 mls/hr Sodium Chloride (Sodium Chloride 0.45%) 1,000 mls @ 60 mls/hr IV .[id number] [facility] Last Admin: 05/25/17 12:31 Dose: 60 mls/hr Insulin Detemir (Levemir) 30 unit SC HS [facility] Insulin Human Lispro (Humalog Low) 0 units SC ACHS [facility] PRN Reason: Protocol Last Admin: 05/25/17 12:31 Dose: 4 units Insulin Human Lispro (Humalog) 6 units SC AC [facility] Ketorolac Tromethamine (Toradol) 30 mg IVP Q6H PRN PRN Reason: Pain, moderate (4-7) Last Admin: 05/25/17 10:04 Dose: 30 mg Lisinopril (Zestril) 5 mg PO DAILY [facility] Last Admin: 05/25/17 10:04 Dose: 5 mg Metoclopramide HCl (Reglan) 10 mg IVP ACHS [facility] Last Admin: 05/25/17 12:32 Dose: 10 mg Ondansetron HCl (Zofran Inj) 4 mg IVP Q4H PRN PRN Reason: Nausea/Vomiting Last Admin: 05/25/17 12:32 Dose: 4 mg
[2017-05-25] MEDS: Insulin Lispro 1 UNITS/0.01 ML SC SCH (17:08)
[2017-05-25] MEDS: Morphine 2 mg/ml ISec IVP PRN ×2 (17:43→21:12)
--- NOTE | 2017-05-25 20:27 | PN ---
ENDOCRINE FOLLOWUP NOTE LOCATION: Room #373 SUBJECTIVE: This is a 51-year-old female with recent uncontrolled type 2 insulin-requiring diabetes, presented here with diffuse abdominal pain and supervening nausea, dyspepsia, and, vomiting, and is currently being followed closely for metabolic management. Her glucose values are fluctuating but improved and the latest chemistry showed BUN of 22, sodium 137, potassium 3.7, chloride 100, CO2 23, glucose 450, and creatinine 0.8. Her bedtime glucose was 176 but a fasting glucose this morning was 440 mg/dL. A1c level is 11.3, still elevated and indicative of suboptimal metabolic control with diabetic condition. We will check a new series of lab at this time. Her TSH is 0.09 which is indicative of acute sick euthyroid syndrome, but we will need confirmation regarding that as I mentioned. PLAN: So at this time, we will monitor her baseline insulin and increase the Levemir to 30 units subcutaneous at bedtime daily to start tonight. We will also add Humalog given as 6 units subcutaneous b.i.d. before meals to start at dinner time today. We will modify the coverage scale using Humalog and details orders have been given. We will follow with you.. Adali Ferguson MD
[2017-05-25] MEDS: Insulin Detemir 100 units/ml Vial (Levemir) SC SCH (22:04)
[2017-05-26] MEDS: Morphine 2 mg/ml ISec IVP PRN ×7 (01:28→23:44)
--- NOTE | 2017-05-26 02:58 | CP.PCM.PN ---
Subjective - Date & Time of Evaluation Date of Evaluation: 05/26/17 Time of Evaluation: 02:57 - Subjective Subjective: Patient was seen at bedside because nurse called and told that she vomited 4 times after zofran 4 mg IV was given at 1:30 AM. Patient was seen at bedside. Has complain of nausea.Has vomited 4 times. No other complaints. Denies abdominal pain, diarrhoea. Medical record was reviewed. This 51 year old woman was admitted with nausea, vomiting, diarrhoea , not feeling well, blood sugar of 400. Has PMH of HTN, DM, gastroparesis, asthma, colon cancer, chronic pain, peripheral neuropathy, COPD, , whipple surgery. Objective - Vital Signs/Intake and Output Vital Signs (last 24 hours): Temp Pulse Resp BP Pulse Ox 98.9 F 51 L 20 126/75 96 05/25/17 16:30 05/25/17 16:30 05/25/17 16:30 05/25/17 16:30 05/25/17 16:30 Intake and Output: 05/25/17 05/26/17 18:59 06:59 Intake Total 360 Balance 360 - Medications Medications: Current Medications Pantoprazole Sodium (Protonix 40mg Ivpb) 40 mg in 100 mls @ 200 mls/hr IVPB 0600 [facility] Last Admin: 05/25/17 06:35 Dose: 200 mls/hr Sodium Chloride (Sodium Chloride 0.45%) 1,000 mls @ 60 mls/hr IV .[id number] [facility] Last Admin: 05/25/17 12:31 Dose: 60 mls/hr Insulin Detemir (Levemir) 30 unit SC HS [facility] Last Admin: 05/25/17 22:04 Dose: Not Given Insulin Human Lispro (Humalog Low) 0 units SC ACHS [facility] PRN Reason: Protocol Last Admin: 05/25/17 22:04 Dose: Not Given Insulin Human Lispro (Humalog) 6 units SC AC [facility] Last Admin: 05/25/17 17:08 Dose: 6 units Ketorolac Tromethamine (Toradol) 30 mg IVP Q6H PRN PRN Reason: Pain, moderate (4-7) Last Admin: 05/25/17 22:38 Dose: 30 mg Lisinopril (Zestril) 5 mg PO DAILY [facility] Last Admin: 05/25/17 10:04 Dose: 5 mg Metoclopramide HCl (Reglan) 10 mg IVP ACHS [facility] Last Admin: 05/25/17 22:03 Dose: 10 mg Morphine Sulfate (Morphine) 1 mg IVP Q3H PRN PRN Reason: Pain, severe (8-10) Last Admin: 05/26/17 01:28 Dose: 1 mg Ondansetron HCl (Zofran Inj) 4 mg IVP Q4H PRN PRN Reason: Nausea/Vomiting Last Admin: 05/26/17 01:32 Dose: 4 mg Zolpidem Tartrate (Ambien) 5 mg PO HS PRN; Protocol PRN Reason: Insomnia Last Admin: 05/25/17 22:34 Dose: 5 mg - Constitutional Appears: Well, No Acute Distress - Head Exam Head Exam: ATRAUMATIC, NORMAL INSPECTION, NORMOCEPHALIC - Eye Exam Eye Exam: Normal appearance - ENT Exam ENT Exam: Mucous Membranes Dry - Neck Exam Neck Exam: Normal Inspection - Respiratory Exam Respiratory Exam: NORMAL BREATHING PATTERN - Cardiovascular Exam Cardiovascular Exam: absent: JVD - GI/Abdominal Exam GI & Abdominal Exam: absent: Distended - Rectal Exam Rectal Exam: Deferred - Exam Additional comments: Deferred. - Extremities Exam Extremities Exam: Normal Inspection - Back Exam Back Exam: NORMAL INSPECTION - Neurological Exam Neurological Exam: Alert, Oriented x3 - Psychiatric Exam Psychiatric exam: Normal Affect, Normal Mood - Skin Skin Exam: Dry Assessment and Plan - Assessment and Plan (Free Text) Assessment: Nausea/Vomiting. HTN. DM. Gastroparesis. asthma. Colon cancer. Chronic pain. Peripheral neuropathy. COPD. . Hx Whipple surgery. Plan: Reglan 10 mg IV stat. Continue present management.
[2017-05-26] MEDS: Pantoprazole 40mg/100ml IVPB 40 MG/100 ML BAG IVPB SCH (05:04)
--- NOTE | 2017-05-26 07:32 | CP.PCM.PN ---
<Nidia Burkett - Last Filed: 05/26/17 09:52> Subjective - Date & Time of Evaluation Date of Evaluation: 05/26/17 Time of Evaluation: 07:29 - Subjective Subjective: Gastroenterology Fellow/PGY5 Progress Note Patient continues to have recurrent vomiting last night and this morning despite administration of zofran. Has not tried clear liquids due to persistent nausea. No bowel movement yesterday. A 12-point review of systems negative except for as above. Objective - Vital Signs/Intake and Output Vital Signs (last 24 hours): Temp Pulse Resp BP Pulse Ox 98.7 F 43 L 19 155/67 H 98 05/26/17 06:00 05/26/17 06:00 05/26/17 06:00 05/26/17 06:00 05/26/17 06:00 Intake and Output: 05/26/17 05/26/17 06:59 18:59 Intake Total 360 Balance 360 - Medications Medications: Current Medications Pantoprazole Sodium (Protonix 40mg Ivpb) 40 mg in 100 mls @ 200 mls/hr IVPB 0600 [facility] Last Admin: 05/26/17 05:04 Dose: 200 mls/hr Sodium Chloride (Sodium Chloride 0.45%) 1,000 mls @ 60 mls/hr IV .[id number] [facility] Last Admin: 05/25/17 12:31 Dose: 60 mls/hr Insulin Detemir (Levemir) 30 unit SC [facility] Last Admin: 05/25/17 22:04 Dose: Not Given Insulin Human Lispro (Humalog Low) 0 units SC [facility] PRN Reason: Protocol Last Admin: 05/25/17 22:04 Dose: Not Given Insulin Human Lispro (Humalog) 6 units SC AC [facility] Last Admin: 05/25/17 17:08 Dose: 6 units Ketorolac Tromethamine (Toradol) 30 mg IVP Q6H PRN PRN Reason: Pain, moderate (4-7) Last Admin: 05/26/17 05:05 Dose: 30 mg Lisinopril (Zestril) 5 mg PO DAILY [facility] Last Admin: 05/25/17 10:04 Dose: 5 mg Metoclopramide HCl (Reglan) 10 mg IVP [facility] Last Admin: 05/25/17 22:03 Dose: 10 mg Morphine Sulfate (Morphine) 1 mg IVP Q3H PRN PRN Reason: Pain, severe (8-10) Last Admin: 05/26/17 04:30 Dose: 1 mg Ondansetron HCl (Zofran Inj) 4 mg IVP Q4H PRN PRN Reason: Nausea/Vomiting Last Admin: 05/26/17 01:32 Dose: 4 mg Zolpidem Tartrate (Ambien) 5 mg PO HS PRN; Protocol PRN Reason: Insomnia Last Admin: 05/25/17 22:34 Dose: 5 mg - Constitutional Appears: Non-toxic, No Acute Distress - Head Exam Head Exam: ATRAUMATIC, NORMOCEPHALIC - Eye Exam Eye Exam: EOMI, PERRL Pupil Exam: PERRL. absent: Miosis, Mydriatic - ENT Exam ENT Exam: Mucous Membranes Moist, Normal Oropharynx - Neck Exam Neck Exam: Full ROM, Normal Inspection - Respiratory Exam Respiratory Exam: Clear to Ausculation Bilateral. absent: Rales, Rhonchi - Cardiovascular Exam Cardiovascular Exam: RRR, +S1, +S2. absent: Gallop, Rubs - GI/Abdominal Exam GI & Abdominal Exam: Soft, Normal Bowel Sounds. absent: Distended, Firm, Guarding, Rigid, Tenderness, Organomegaly, Rebound - Extremities Exam Extremities Exam: Full ROM. absent: Pedal Edema - Neurological Exam Neurological Exam: Alert, Awake - Psychiatric Exam Psychiatric exam: Normal Affect, Normal Mood - Skin Skin Exam: Dry, Intact, Normal Color, Warm Assessment and Plan - Assessment and Plan (Free Text) Assessment: 51 year old female with history of chronic back pain on oxycodone, Hypertension , asthma, colon cancer s/p partial colectomy 1989 (no chemoradiation), pancreatic cancer s/p Whipple's 1990, and 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 Active treatment of hyperglycemia secondary to uncontrolled Diabetes. Followed up with Dr Ricketts, pancreatic surgeon in March with elective endoscopic evaluation after follow up with general surgeon for recent discharge end of March for gluteal abscess s/p I&D and antibiotic therapy (scheduled in next two weeks). Last EGD and colonoscopy 2007 at outside facility endorsed to be normal. Plan: >nausea/vomiting 2/2 uncontrolled Diabetes, Gastroparesis >supportive care: antiemetics, IVFs, PPI >will follow up CT A/P ordered by primary team >Endocrine managing- managing insulin regimen, A1c 11.3 >clear liquid diet ordered as tolerated >outpatient EGD and colonoscopy scheduled with Dr. Ricketts >will follow clinical course <Steven Owen MD - Last Filed: 05/26/17 11:55> Objective - Vital Signs/Intake and Output Vital Signs (last 24 hours): Temp Pulse Resp BP Pulse Ox 98.7 F 43 L 19 155/67 H 98 05/26/17 10:00 05/26/17 10:00 05/26/17 10:00 05/26/17 10:00 05/26/17 10:00 Intake and Output: 05/26/17 05/26/17 06:59 18:59 Intake Total 360 Balance 360 - Medications Medications: Current Medications Pantoprazole Sodium (Protonix 40mg Ivpb) 40 mg in 100 mls @ 200 mls/hr IVPB 0600 [facility] Last Admin: 05/26/17 05:04 Dose: 200 mls/hr Sodium Chloride (Sodium Chloride 0.45%) 1,000 mls @ 80 mls/hr IV .[id number] [facility] Last Admin: 05/26/17 11:03 Dose: 80 mls/hr Insulin Detemir (Levemir) 30 unit SC HS [facility] Last Admin: 05/25/17 22:04 Dose: Not Given Insulin Human Lispro (Humalog Low) 0 units SC ACHS [facility] PRN Reason: Protocol Last Admin: 05/26/17 11:51 Dose: Not Given Insulin Human Lispro (Humalog) 6 units SC AC [facility] Last Admin: 05/26/17 07:44 Dose: 6 units Ketorolac Tromethamine (Toradol) 30 mg IVP Q6H PRN PRN Reason: Pain, moderate (4-7) Last Admin: 05/26/17 05:05 Dose: 30 mg Lisinopril (Zestril) 5 mg PO DAILY [facility] Last Admin: 05/26/17 09:14 Dose: 5 mg Metoclopramide HCl (Reglan) 10 mg IVP ACHS [facility] Last Admin: 05/26/17 11:00 Dose: 10 mg Morphine Sulfate (Morphine) 1 mg IVP Q3H PRN PRN Reason: Pain, severe (8-10) Last Admin: 05/26/17 11:00 Dose: 1 mg Ondansetron HCl (Zofran Inj) 4 mg IVP Q4H PRN PRN Reason: Nausea/Vomiting Last Admin: 05/26/17 01:32 Dose: 4 mg Zolpidem Tartrate (Ambien) 5 mg PO HS PRN; Protocol PRN Reason: Insomnia Last Admin: 05/25/17 22:34 Dose: 5 mg - Labs Labs: 05/26/17 08:30 05/26/17 08:30 Attending/Attestation - Attestation I have personally seen and examined this patient.: Yes I have fully participated in the care of the patient.: Yes I have reviewed all pertinent clinical information, including history, physical exam and plan: Yes Notes (Text): 05/26/17 11:54 Patient seen with GI fellow on rounds. This is a 51 year old female h/o chronic back pain on narcotics, poorly controlled DM, h/o colon cancer s/p partial colectomy 1989, pancreatic cancer s/p Whipple's 1990, admitted with uncontrolled DM and nausea/vomiting likely due to gatsroparesis. Will continue anti emetics and prokinetics. Strict glycemic control, endocrine follow up, liquid diet as tolerated
[2017-05-26] MEDS: Insulin Lispro (humaLOG) LOW Coverage SC SCH ×4 (07:40→21:39)
[2017-05-26] MEDS: Insulin Lispro 1 UNITS/0.01 ML SC SCH ×3 (07:44→16:33)
[2017-05-26] MEDS ORDERED: Barium Sulfate Susp 2.1% w/v, 2.0% w/w 450 mL Bottle PO ONE (08:16)
[2017-05-26 08:52] LABS: HEMOGLOBIN 11.7 gm/dL (12.0-16.0); MEAN CELL VOLUME 81.2 fL (80.0-105.0); MEAN CORPUSCULAR HEMOGLOBIN 27.5 pg (25.0-35.0); MEAN CORPUSCULAR HGB CONC 33.8 g/dl (31.0-37.0); MEAN PLATELET VOLUME 9.1 fl (7.0-11.0); RBC 4.26 10^6/uL (3.5-6.1); RED CELL DISTRIBUTION WIDTH 12.7 % (11.5-14.5); WHITE BLOOD COUNT 3.9 10^3/ul (4.5-11.0)
[2017-05-26 09:05] LABS: ALB/GLOB RATIO 1.5 (1.1-1.8); ALBUMIN 4.1 g/dL (3.0-4.8); ALT/SGPT 29 U/L (7-56); AST/SGOT 20 U/L (15-39); BLOOD UREA NITROGEN 25 mg/dL (7-21); CALCIUM 9.2 mg/dL (8.4-10.5); GFR AFRICAN-AMERICAN > 60; GFR NON-AFRICAN AMERICAN > 60
[2017-05-26 09:50] LABS: FREE T4 1.11 ng/dL (0.78-2.19); T4 7.7 ug/dL (5.5-11.0)
[2017-05-26] MEDS: Sodium Chloride 0.45% 1,000 ML IV SCH ×2 (11:03→22:30)
--- NOTE | 2017-05-26 12:28 | PN ---
SUBJECTIVE: I saw Marizol this morning. She is not comfortable at all in bed. She has been throwing up all night along. want to look at the liquid, she tried to take little sip, as she threw right up, very uncomfortable, some abdominal discomfort, no bowels, no gas, and mildly distended abdomen. MEDICATIONS: She is currently on Ambien, Humalog, Levemir, morphine, Protonix, Reglan, IV fluids, Toradol. Restoril, and Zofran. PHYSICAL EXAMINATION: HEENT: Head is atraumatic and normocephalic. Looks like she looks dry. HEART: Regular rate. LUNGS: Decreased breath sounds, but clear. ABDOMEN: Nontender. No bowel sounds. Mild discomfort, no guarding, and no rebound. EXTREMITIES: No edema. LABORATORY DATA: I am going to order CAT scan of the abdomen and pelvis. I am not show what is going on in there. It has been too many days of nausea and vomiting. She had 4.3 white count, 12.9 hemoglobin, and 197 platelets the other day. Last blood sugars was 238, better than over 300. Her last hemoglobin A1c in January was over 16 and now it is down to 11. ASSESSMENT AND PLAN: We are making progress, she is being seen by endocrinology and GI. I am going to order CAT scan because the belly seems to still be upset. I will order labs tomorrow. Try liquid, although at this morning, I did not think she was going to have anything, so was very upset. Continue with Zofran as needed and IV fluids are increased. She is here for gastroparesis, abdominal pain, and high blood sugars. Mayur Mcclendon DO JE
--- NOTE | 2017-05-26 12:36 | CT ---
PROCEDURE: CT Abdomen and Pelvis without intravenous contrast HISTORY: abd pain n/v COMPARISON: CT 04/26/2016 TECHNIQUE: Without contrast.. Contrast Dose: Radiation dose: Total exam DLP = 1152 mGy-cm. This CT exam was performed using one or more of the following dose reduction techniques: Automated exposure control, adjustment of the mA and/or kV according to patient size, and/or use of iterative reconstruction technique. FINDINGS: LOWER THORAX: Unremarkable. LIVER: There is a moderate amount of air in the biliary tree. GALLBLADDER AND BILE DUCTS: Gallbladder removed PANCREAS: Unremarkable. No gross lesion or ductal dilatation. SPLEEN: Unremarkable. ADRENALS: Bilateral stable adrenal masses measuring 24 mm in diameter KIDNEYS AND URETERS: Unremarkable. No hydronephrosis. No solid mass. VASCULATURE: Unremarkable. No aortic aneurysm. BOWEL: Unremarkable. No obstruction. No gross mural thickening. APPENDIX: Unremarkable. Normal appendix. PERITONEUM: Unremarkable. No free fluid. No free air. LYMPH NODES: Unremarkable. No enlarged lymph nodes. BLADDER: Mild mural thickening in the urinary bladder REPRODUCTIVE: Unremarkable. BONES: No acute fracture. OTHER FINDINGS: None. IMPRESSION: No acute findings
--- NOTE | 2017-05-26 16:27 | PN ---
ENDOCRINE FOLLOWUP NOTE DATE: 05/26/2017 This is a 51-year-old female with known history of type 2 insulin-requiring diabetes, presenting here with intractable vomiting episodes and currently only on a liquid diet as noted. Her oral intake remains quite variable and suboptimal at this time. Her glucose values have improved and have ranged from 116-238 mg/dL. Her latest chemistry showed a BUN of 25, sodium 139, potassium 3.7, chloride 102, CO2 26, glucose 133, and creatinine 0.9. So at this time, we will continue the same basal and bolus insulin regimen to allow for dose equilibration as she is only on the liquid diet and keep her on the Humalog given at 6 units subcutaneous t.i.d. before meals as ordered. We will continue the low dose correction scale using Humalog insulin as ordered. We will also continue the basal insulin given as Levemir at 30 units subcutaneous at bedtime daily as given. We will titrate incrementally as indicated to optimize metabolic control. We will follow with you. Adali Ferguson MD
[2017-05-26 17:30] VITALS: RESP 20
[2017-05-26] MEDS: POLYETHYLENE GLYCOL 3350 17 GM/Dose PACKET PO SCH (17:53)
[2017-05-26] MEDS: Insulin Detemir 100 units/ml Vial (Levemir) SC SCH (21:43)
[2017-05-27] MEDS: Morphine 2 mg/ml ISec IVP PRN ×4 (03:17→13:00)
[2017-05-27] MEDS: Pantoprazole 40mg/100ml IVPB 40 MG/100 ML BAG IVPB SCH (05:10)
[2017-05-27] MEDS ORDERED: Magnesium Citrate Oral SOL (300 ml) PO ONE (07:21)
--- NOTE | 2017-05-27 07:31 | CP.PCM.PN ---
<Nidia Burkett - Last Filed: 05/27/17 08:27> Subjective - Date & Time of Evaluation Date of Evaluation: 05/27/17 Time of Evaluation: 07:26 - Subjective Subjective: Gastroenterology Fellow/PGY5 Progress Note Patient endorses over ten episodes of vomiting since last night with last episode at 6AM. Notes constant nausea has improved, continues to experience sudden onset of intermittent vomiting. Nursing notes one episode of vomiting overnight. Tolerating small amounts of clear liquid diet. No bowel movement since Wednesday. A 12-point review of systems negative except for as above. Objective - Vital Signs/Intake and Output Vital Signs (last 24 hours): Temp Pulse Resp BP Pulse Ox 99.3 F 42 L 20 157/77 H 99 05/26/17 16:00 05/26/17 16:00 05/26/17 16:00 05/26/17 16:00 05/26/17 16:00 Intake and Output: 05/27/17 05/27/17 06:59 18:59 Intake Total 1200 Balance 1200 - Medications Medications: Current Medications Pantoprazole Sodium (Protonix 40mg Ivpb) 40 mg in 100 mls @ 200 mls/hr IVPB 0600 [facility] Last Admin: 05/27/17 05:10 Dose: 200 mls/hr Sodium Chloride (Sodium Chloride 0.45%) 1,000 mls @ 80 mls/hr IV .[id number] [facility] Last Admin: 05/26/17 22:30 Dose: 80 mls/hr Insulin Detemir (Levemir) 30 unit SC [facility] Last Admin: 05/26/17 21:43 Dose: 30 unit Insulin Human Lispro (Humalog Low) 0 units SC [facility] PRN Reason: Protocol Last Admin: 05/26/17 21:39 Dose: Not Given Insulin Human Lispro (Humalog) 6 units SC AC [facility] Last Admin: 05/26/17 16:33 Dose: Not Given Ketorolac Tromethamine (Toradol) 30 mg IVP Q6H PRN PRN Reason: Pain, moderate (4-7) Last Admin: 05/27/17 01:23 Dose: 30 mg Lisinopril (Zestril) 5 mg PO DAILY [facility] Last Admin: 05/26/17 09:14 Dose: 5 mg Metoclopramide HCl (Reglan) 10 mg IVP [facility] Last Admin: 05/26/17 21:36 Dose: 10 mg Morphine Sulfate (Morphine) 0.5 mg IVP Q3H PRN PRN Reason: Pain, severe (8-10) Last Admin: 05/27/17 06:24 Dose: 0.5 mg Ondansetron HCl (Zofran Inj) 4 mg IVP Q4H PRN PRN Reason: Nausea/Vomiting Last Admin: 05/27/17 05:10 Dose: 4 mg Polyethylene Glycol (Miralax) 17 gm PO DAILY [facility] Last Admin: 05/26/17 17:53 Dose: 17 gm Zolpidem Tartrate (Ambien) 5 mg PO HS PRN; Protocol PRN Reason: Insomnia Last Admin: 05/26/17 21:36 Dose: 5 mg - Labs Labs: 05/26/17 08:30 05/26/17 08:30 - Constitutional Appears: Non-toxic, No Acute Distress - Head Exam Head Exam: ATRAUMATIC, NORMOCEPHALIC - Eye Exam Eye Exam: EOMI, PERRL Pupil Exam: PERRL. absent: Miosis, Mydriatic - ENT Exam ENT Exam: Mucous Membranes Moist, Normal Oropharynx - Neck Exam Neck Exam: Full ROM, Normal Inspection - Respiratory Exam Respiratory Exam: Clear to Ausculation Bilateral. absent: Rales, Rhonchi, Wheezes - Cardiovascular Exam Cardiovascular Exam: RRR, +S1, +S2. absent: Gallop, Rubs - GI/Abdominal Exam GI & Abdominal Exam: Soft, Normal Bowel Sounds. absent: Distended, Firm, Guarding, Rigid, Tenderness, Organomegaly, Rebound - Extremities Exam Extremities Exam: Normal Inspection. absent: Pedal Edema - Neurological Exam Neurological Exam: Alert, Awake - Psychiatric Exam Psychiatric exam: Normal Affect, Normal Mood - Skin Skin Exam: Dry, Intact, Normal Color, Warm Assessment and Plan - Assessment and Plan (Free Text) Assessment: 51 year old female with history of chronic back pain on oxycodone, Hypertension , asthma, colon cancer s/p partial colectomy 1989 , pancreatic cancer s/p Whipple's 1990, T2DM, and Gastroparesis presenting with nausea and vomiting. Active treatment of hypergylcemia, intractable vomiting, and constipation. Last EGD and colonoscopy 2007 at outside facility endorsed to be normal. Plan: >CT A/P- no acute pathology >discordance of report from patient and nursing -electrolytes stable - basin at bedside old output from yesterday -comfortable appearance, admits to improved nausea >continue Reglan ACHS, Zofran PRN, PPI 0600 >recommend decrease morphine use -drug seeking behavior -component of persistent nausea/vomiting -component of constipation >ordered Mg citrate, Dulcolax RC, continue Miralax daily >clear liquid diet, advance as tolerated to low fat, diabetic, small frequent meals >counselled on elevated HOB 45 degrees or more, no oral intake 2-3 hours before bedtime/supine >Endocrine managing insulin regimen >outpatient EGD and colonoscopy scheduled with Dr. Ricketts >will follow clinical course <Gerber Mejia - Last Filed: 05/27/17 10:41> Objective - Vital Signs/Intake and Output Vital Signs (last 24 hours): Temp Pulse Resp BP Pulse Ox 99.5 F 50 L 20 155/83 H 98 05/27/17 08:40 05/27/17 09:37 05/27/17 08:40 05/27/17 09:37 05/27/17 08:40 Intake and Output: 05/27/17 05/27/17 06:59 18:59 Intake Total 1200 Balance 1200 - Medications Medications: Current Medications Pantoprazole Sodium (Protonix 40mg Ivpb) 40 mg in 100 mls @ 200 mls/hr IVPB 0600 [facility] Last Admin: 05/27/17 05:10 Dose: 200 mls/hr Sodium Chloride (Sodium Chloride 0.45%) 1,000 mls @ 80 mls/hr IV .[id number] [facility] Last Admin: 05/27/17 10:00 Dose: 80 mls/hr Insulin Detemir (Levemir) 30 unit SC HS [facility] Last Admin: 05/26/17 21:43 Dose: 30 unit Insulin Human Lispro (Humalog Low) 0 units SC [facility] PRN Reason: Protocol Last Admin: 05/27/17 07:59 Dose: Not Given Insulin Human Lispro (Humalog) 6 units SC AC [facility] Last Admin: 05/27/17 08:18 Dose: 6 units Ketorolac Tromethamine (Toradol) 30 mg IVP Q6H PRN PRN Reason: Pain, moderate (4-7) Last Admin: 05/27/17 08:17 Dose: 30 mg Lisinopril (Zestril) 5 mg PO DAILY [facility] Last Admin: 05/27/17 09:37 Dose: 5 mg Metoclopramide HCl (Reglan) 10 mg IVP ACHS [facility] Last Admin: 05/27/17 08:17 Dose: 10 mg Morphine Sulfate (Morphine) 0.5 mg IVP Q3H PRN PRN Reason: Pain, severe (8-10) Last Admin: 05/27/17 10:00 Dose: 0.5 mg Ondansetron HCl (Zofran Inj) 4 mg IVP Q4H PRN PRN Reason: Nausea/Vomiting Last Admin: 05/27/17 05:10 Dose: 4 mg Polyethylene Glycol (Miralax) 17 gm PO DAILY [facility] Last Admin: 05/27/17 10:05 Dose: 17 gm Zolpidem Tartrate (Ambien) 5 mg PO HS PRN; Protocol PRN Reason: Insomnia Last Admin: 05/26/17 21:36 Dose: 5 mg - Labs Labs: 05/27/17 09:00 05/27/17 09:00 Attending/Attestation - Attestation I have personally seen and examined this patient.: Yes I have fully participated in the care of the patient.: Yes I have reviewed all pertinent clinical information, including history, physical exam and plan: Yes Notes (Text): 05/27/17 10:39 51 year old female with h/o chronic back pain on narcotics, Obesity, HTN, Asthma , CRC s/p partial colectomy, Panc ca s/p whipple admitted with N/V, and constipation, as well as hyperglycemia 1. Gastroparesis 2. Opiod induced constipation Plan: -continue supportive measures as above, including hydration, anti-emetics, prokinetics -minimize narcotics -trial of relistor for constipation in the setting of opiate use -continue PPI -glycemic control -follow up outpatient with Dr. Ricketts
[2017-05-27] MEDS: Insulin Lispro (humaLOG) LOW Coverage SC SCH ×2 (07:59→11:52)
[2017-05-27] MEDS: Insulin Lispro 1 UNITS/0.01 ML SC SCH ×2 (08:18→11:52)
[2017-05-27 08:41] VITALS: BP 155/83; TEMP 99.5; O2SAT 98
[2017-05-27 09:22] LABS: HEMOGLOBIN 12.5 gm/dL (12.0-16.0); MEAN CELL VOLUME 80.7 fL (80.0-105.0); MEAN CORPUSCULAR HEMOGLOBIN 28.1 pg (25.0-35.0); MEAN CORPUSCULAR HGB CONC 34.8 g/dl (31.0-37.0); MEAN PLATELET VOLUME 9.5 fl (7.0-11.0); RBC 4.45 10^6/uL (3.5-6.1); RED CELL DISTRIBUTION WIDTH 12.5 % (11.5-14.5); WHITE BLOOD COUNT 4.4 10^3/ul (4.5-11.0)
[2017-05-27 09:36] LABS: ALB/GLOB RATIO 1.4 (1.1-1.8); ALBUMIN 4.1 g/dL (3.0-4.8); ALT/SGPT 27 U/L (7-56); AST/SGOT 18 U/L (15-39); BLOOD UREA NITROGEN 19 mg/dL (7-21); CALCIUM 9.2 mg/dL (8.4-10.5); GFR AFRICAN-AMERICAN > 60; GFR NON-AFRICAN AMERICAN > 60
[2017-05-27 09:40] VITALS: PULSE 50
--- NOTE | 2017-05-27 09:40 | PN ---
SUBJECTIVE: I saw Marizol walking with the IV pole. She had nausea and vomiting all night long. She cannot eat. She cannot take the clear fluids she tells me. She is very uncomfortable with abdominal pain. MEDICATIONS: She is on IV fluids, Ambien, magnesium citrate, Dulcolax, insulin, Levemir, MiraLax, morphine, Protonix, Reglan, Toradol, Zestril, and Zofran. PHYSICAL EXAMINATION: VITAL SIGNS: 99.3 temperature, 42 pulse, I called in Dr. Jose for the bradycardia, 157/77 blood pressure, 20 respiratory rate, and 99% O2 sat on room air. HEENT: Head is atraumatic and normocephalic. HEART: Regular rate. LUNGS: Decreased breath sounds, but clear. ABDOMEN: Soft, mildly distended. No guarding. No rebound. Decreased bowel sounds. EXTREMITIES: No edema. LABORATORY DATA: She has 139 sodium yesterday, 3.7 potassium, BUN 27, creatinine 0.9, and GFR is greater than 60. Blood sugars have been 116, 238, and 233. Calcium is 9.2, total bilirubin is 0.7, AST is 20, ALT is 29, alkaline phosphatase is 112, and protein is 6.8. Last blood sugar was 123, awaiting for today's chemistry. Yesterday's white count is 3.9, hemoglobin is 11.7, and platelets are 188. ASSESSMENT AND PLAN: She is being seen by GI fellow, endocrinology, and there is a consult for Dr. Jsoe for bradycardia. She had a CAT scan of the abdomen and pelvis for the persistent abdominal pain and nausea and vomiting and there was no acute findings. I will discuss this with GI about what they can do to increase the diet, as she is already on Zofran and multiple medications for the We will check her labs tomorrow. If she will tolerate the clear liquids again, we will see how she does. She is here for gastroparesis, abdominal pain, diabetes, and high blood sugars. Mayur Mcclendon DO JE
[2017-05-27] MEDS: Sodium Chloride 0.45% 1,000 ML IV SCH (10:00)
[2017-05-27] MEDS: POLYETHYLENE GLYCOL 3350 17 GM/Dose PACKET PO SCH (10:05)
[2017-05-27] MEDS ORDERED: Potassium Chloride 20 mEq ER Tab PO ONE (10:53)
--- NOTE | 2017-05-27 15:17 | CON ---
DATE: 05/27/2017 HISTORY OF PRESENT ILLNESS: The patient is a 51-year-old woman who presents with abdominal pain. She was found to have sinus bradycardia without dizziness, without hemodynamic sequelae. PAST MEDICAL HISTORY: The patient's past medical history is free of cardiac disease. She does suffer from hypercholesterolemia, diabetes mellitus and hypertension in which she is not on beta blockers. She has taken an MYNOR inhibitor. SOCIAL HISTORY: The patient is an active smoker. REVIEW OF SYSTEMS: 14 Point review of systems was reviewed in detail. No cardiac symptomatology is noted. No chest pain, no dizziness. PHYSICAL EXAM: VITAL SIGNS: On physical exam, blood pressure is 155/83, the heart rate in the 50s, sinus bradycardia. NECK: Negative JVD. LUNGS: Without rales. HEART: Reveals S1 and S2. EXTREMITIES: Without edema. LABORATORY DATA: EKG shows sinus bradycardia without ST changes. Hemoglobin is 12.5. Chemistries unremarkable. TSH is 0.35. IMPRESSION: 1. Asymptomatic sinus bradycardia. 2. Diabetes mellitus. 3. Chronic obstructive pulmonary disease. 4. Hypertension. 5. Hypercholesterolemia. PLAN: Given these findings, there is no hemodynamic sequelae to her bradycardia which is likely due to her abdominal pain. We will obtain an echocardiogram to evaluate her LV function. Brenton Jose MD
--- NOTE | 2017-05-27 19:04 | PN ---
ENDO FOLLOWUP NOTE SUBJECTIVE: This is a 51-year-old female with recent uncontrolled type 2 insulin requiring diabetes presenting here with hyperglycemic related to recent intractable vomiting episodes and diffuse abdominal pain and associated increase insulin resistance thereof, and is now being followed to management. She underwent also a GI workup as noted and she has now been advanced in terms of a diet from a liquid diet to a heart healthy moderate consistency carb diet as ordered. Her glycemic levels are much improved at this time, but her oral intake remains variable and suboptimal as per the nursing staff. Her glucose values have raised from 84 to 123 and 162 mg/dL. Her latest chemistry showed a BUN of 19, sodium 136, potassium 3.4, chloride 101, CO2 of 24, glucose 139, and creatinine 0.8. So at this time, we will continue to modify basal and bolus insulin regimen as ordered with Levemir given at 30 units subQ at bedtime daily as ordered. We will also continue the Humalog given at 6 units subQ t.i.d. before meals as given. We will titrate incremental as indicated to optimize metabolic control. We will follow. Adali Ferguson MD
--- NOTE | 2017-05-27 21:17 | CARD ---
APPROVED REPORT EXAM: Two-dimensional and M-mode echocardiogram with Doppler and color Doppler. INDICATION SINUS BRODERICK 2D DIMENSIONS Left Atrium (2D)4.3 (1.6-4.0cm)IVSd0.8 (0.7-1.1cm) LVDd4.9 (3.9-5.9cm)PWd1.0 (0.7-1.1cm) LVDs3.0 (2.5-4.0cm)FS (%) 38.1 % LVEF (%)68.2 (>50%) M-Mode DIMENSIONS Aortic Root3.10 (2.2-3.7cm)Aortic Cusp Exc.1.90 (1.5-2.0cm) Aortic Valve AoV Peak Nfepvdbf340.0cm/[place] Peak GR.14mmHg Mitral Valve MV E Ljgvtnyn743.0cm/sMV A Gfybzgsr32.2cm/sE/A ratio1.6 TDI Lateral E' Peak V10.60cm/sMedial E' Peak V7.90cm/sE/Lateral E'9.9 E/Medial E'13.3 Pulmonary Valve PV Peak Iskaleck23.2cm/sPV Peak Grad.1mmHg Tricuspid Valve TR Peak [id number]/sRAP [id number] Peak Gr.32mmHg [id number] LEFT VENTRICLE The left ventricle is normal size. There is normal left ventricular wall thickness. The Ejection Fraction is within normal limits. Hypokinetic Apical septum Transmitral Doppler flow pattern is Grade I-abnormal relaxation pattern. Cannot rule out an Apical thrombus RIGHT VENTRICLE The right ventricle is normal size. There is normal right ventricular wall thickness. The right ventricular systolic function is normal. ATRIA The left atrium is borderline dilated. The right atrium is borderline dilated. AORTIC VALVE The aortic valve is normal in structure. No aortic regurgitation is present. MITRAL VALVE The mitral valve is normal in structure. There is no mitral valve regurgitation noted. TRICUSPID VALVE There is mild tricuspid regurgitation. There is mild pulmonary hypertension. GREAT VESSELS The aortic root is normal in size. The IVC collapses <50% with inspiration. <Conclusion> The left ventricle is normal size. The Ejection Fraction is within normal limits. Hypokinetic Apical septum Cannot rule out an Apical thrombus There is mild tricuspid regurgitation. There is mild pulmonary hypertension.
== END 2017-05-27 15:42 | disposition home or self-care (01) | DRG 74 ==
LOC: ED 14:14 → ERH 17:13 → 3RSO 20:38 → OBSVTOIN 05-25 12:07
PROVIDERS: ADMIT Family Medicine; ATTEND Family Medicine
DX: E11.43 Type 2 diabetes mellitus with diabetic autonomic (poly)neuropathy (principal); K31.84 Gastroparesis; E11.65 Type 2 diabetes mellitus with hyperglycemia; I10 Essential (primary) hypertension; E11.42 Type 2 diabetes mellitus with diabetic polyneuropathy; G89.29 Other chronic pain; J44.9 Chronic obstructive pulmonary disease, unspecified; K21.9 Gastro-esophageal reflux disease without esophagitis; E78.5 Hyperlipidemia, unspecified; E11.319 Type 2 diabetes mellitus with unspecified diabetic retinopathy without macular edema; K29.50 Unspecified chronic gastritis without bleeding; E78.00 Pure hypercholesterolemia, unspecified; R00.1 Bradycardia, unspecified; K59.03 Drug induced constipation; T40.2X5A Adverse effect of other opioids, initial encounter; E66.9 Obesity, unspecified; Z68.36 Body mass index [BMI] 36.0-36.9, adult; F17.210 Nicotine dependence, cigarettes, uncomplicated; R29.6 Repeated falls; Z79.4 Long term (current) use of insulin; Z85.07 Personal history of malignant neoplasm of pancreas; Z90.411 Acquired partial absence of pancreas; Z85.038 Personal history of other malignant neoplasm of large intestine; Z90.49 Acquired absence of other specified parts of digestive tract; Z83.3 Family history of diabetes mellitus; Z82.49 Family history of ischemic heart disease and other diseases of the circulatory system; Z80.1 Family history of malignant neoplasm of trachea, bronchus and lung; Z80.0 Family history of malignant neoplasm of digestive organs

== ENCOUNTER 2017-07-05 10:30 | Emergency (ER) | payer BC, OTHER ==
[2017-07-05 11:04] VITALS: TEMP 98.2; BMI 35.2
--- NOTE | 2017-07-05 11:42 | ED PDOC ---
Arrival/HPI - General Chief Complaint: Upper Extremity Problem/Injury Time Seen by Provider: 07/05/17 10:38 Historian: Patient - History of Present Illness Narrative History of Present Illness (Text): 07/05/17 11:38 51yr old female presents today with a 2 week history of right sided shoulder and arm pain. pt denies fever/chills. denies trauma or injury. pt states she has been trying heating pads and oxycontin at home without improvement in symptoms. pt states she noticed the pain about 2 weeks ago which has gradually increased. she describes the pain as achy and occasionally shooting. denies numbness, weakness, or tingling in the extremity. pt states she remembers having an IV inserted into the neck approximately 1 month ago. pt denies fever/ chills. no dizziness or weakness. pt states the pain is worse when she first wakes up in the morning and slightly improves throughout the day. no medications taken for pain to day prior to arrival. Time/Duration: Other (2 weeks) Symptom Onset: Gradual Symptom Course: Worsening Quality: Aching, Stabbing Severity Level: 7 Past Medical History - Provider Review Nursing Documentation Reviewed: Yes - Travel History Have you recently traveled outside [place] w/in the past 3 mons?: No - Infectious Disease Hx of Infectious Diseases: None - Tetanus Immunization Tetanus Immunization: Unknown - Reproductive Menopause: Yes - Cardiac Hx Cardiac Disorders: Yes Hx Hypertension: Yes - Pulmonary Hx Chronic Obstructive Pulmonary Disease (COPD): Yes - Neurological Hx Neurological Disorder: No - HEENT Hx HEENT Disorder: No - Renal Hx Renal Disorder: No - Endocrine/Metabolic Hx Diabetes Mellitus Type 2: Yes - Hematological/Oncological Other/Comment: colon ca - Integumentary Hx Dermatological Disorder: No - Musculoskeletal/Rheumatological Hx Musculoskeletal Disorders: Yes Hx Falls: Yes - Gastrointestinal Hx Gastrointestinal Disorders: Yes Hx Gastroesophageal Reflux: Yes Other/Comment: colon ca with surgery - Genitourinary/Gynecological Hx Genitourinary Disorders: Yes Hx Urinary Tract Infection: Yes - Psychiatric Hx Psychophysiologic Disorder: No Hx Substance Use: Yes (use treatment) - Surgical History Other/Comment: CA Colon - whipple,CESEREAN X 1 - Anesthesia Hx Anesthesia: No Hx Anesthesia Reactions: No Hx Malignant Hyperthermia: No - Suicidal Assessment Feels Threatened In Home Enviroment: No Family/Social History - Physician Review Nursing Documentation Reviewed: Yes Family/Social History: Unknown Family HX Smoking Status: Heavy Smoker > 10 Cigarettes Daily Hx Alcohol Use: Yes Hx Substance Use: Yes (use treatment) Hx Substance Use Treatment: Yes Allergies/Home Meds Allergies/Adverse Reactions: Allergies acetaminophen Allergy (Verified 02/06/17 23:34) RASH codeine Allergy (Verified 02/06/17 23:34) RASH iodine Allergy (Verified 02/06/17 23:34) RASH Home Medications: Home Meds Medication Instructions Recorded Confirmed Enalapril Maleate 5 mg PO DAILY 05/21/14 07/05/17 Metformin HCl 1,000 mg PO BID 05/21/14 07/05/17 Oxycodone HCl/Acetaminophen 1 tab PO Q8 PRN 04/27/16 07/05/17 [Percocet 5-325 mg Tablet] Hydroxyzine Pamoate 100 mg PO DAILY 02/06/17 07/05/17 Metaxalone [Skelaxin] 800 mg PO QID 02/06/17 07/05/17 Omeprazole 20 mg PO DAILY 02/06/17 07/05/17 Oxycodone HCl [Oxycodone HCl ER] 160 mg PO Q12H 02/06/17 07/05/17 Simvastatin 20 mg PO DAILY 02/06/17 07/05/17 Lyrica 100 mg PO TID 02/07/17 07/05/17 Review of Systems - Review of Systems Constitutional: absent: Fatigue, Fevers Respiratory: absent: SOB, Cough Cardiovascular: absent: Chest Pain, Palpitations Gastrointestinal: absent: Abdominal Pain, Nausea, Vomiting Genitourinary Female: absent: Dysuria, Frequency Musculoskeletal: Arthralgias, Neck Pain (right sided). absent: Back Pain Skin: absent: Rash, Pruritis Neurological: absent: Headache, Dizziness Psychiatric: absent: Anxiety, Depression Physical Exam Vital Signs Reviewed: Yes Vital Signs Temp Pulse Resp BP Pulse Ox 07/05/17 11:02 98.2 F 105 H 19 121/65 98 Temperature: Afebrile Blood Pressure: Normal Pulse: Tachycardic Respiratory Rate: Normal Appearance: Positive for: Well-Appearing, Non-Toxic, Comfortable Pain Distress: None Mental Status: Positive for: Alert and Oriented X 3 - Systems Exam Head: Present: Atraumatic Mouth: Present: Moist Mucous Membranes Neck: Present: Normal Range of Motion, Paraspinal Tenderness (+ right sided paraspinal and trapezius tenderness; ), Trachea Midline. No: MIDLINE TENDERNESS Respiratory/Chest: Present: Clear to Auscultation, Good Air Exchange. No: Respiratory Distress, Accessory Muscle Use Cardiovascular: Present: Tachycardic Upper Extremity: Present: Normal Inspection, Normal ROM, NORMAL PULSES, Tenderness (right shoulder; + ttp over anterior aspect of shoulder and posterior aspect over trapezius. full rom of shoulder; sensation and distal pulses intact. cap refill <2. full rom of hand/wrist/elbow. ), Neurovascularly Intact, Capillary Refill < 2s. No: Edema, Swelling, Erythema, Deformity Neurological: Present: GCS=15, Speech Normal Skin: Present: Warm, Dry Psychiatric: Present: Alert, Oriented x 3 Medical Decision Making ED Course and Treatment: 07/05/17 11:44 51yr old female with 2 week history of right arm/shoulder/neck pain that has been gradually worsening. pt non toxic well appearing; no distress. pt with tenderness over right trapezius and right cervical paraspinal muscles and anterior right shoulder. toradol and valium given. duplex of right arm; no dvt verbal report from US tech xray right shoulder; no fracture case discussed with dr. mancini; discussed all results in depth with patient; advised f/u with pmd and orthopedist. advised immediate return if symptoms worsen, persist or if new symptoms develop. impression; arm pain, shoulder pain, neck pain motrin every 6 hours as needed for pain continue your pain medications as prescribed follow up with the orthopedist within the next 2 days return if symptoms worsen,persist or if new symptoms develop. - RAD Interpretation Radiology Orders: 07/05/17 11:21 SHOULDER RIGHT [RAD] Stat DUPLEX UPPER EXTRM VEIN RIGHT [US] Stat - Medication Orders Current Medication Orders: Discontinued Medications Diazepam (Valium) 5 mg PO ONCE ONE Stop: 07/05/17 11:22 Last Admin: 07/05/17 11:37 Dose: 5 mg Ketorolac Tromethamine (Toradol) 60 mg IM STAT STA Stop: 07/05/17 11:22 Last Admin: 07/05/17 11:37 Dose: 60 mg Disposition/Present on Arrival - Present on Arrival Any Indicators Present on Arrival: No History of DVT/PE: No History of Uncontrolled Diabetes: No Urinary Catheter: No History of Decub. Ulcer: No History Surgical Site Infection Following: None - Disposition Have Diagnosis and Disposition been Completed?: Yes Diagnosis: Shoulder pain, Arm pain, Muscle ache Disposition: HOME/ ROUTINE Disposition Time: 12:54 Patient Plan: Discharge Condition: GOOD Discharge Instructions (ExitCare): Muscle Strain (ED) Additional Instructions: motrin every 6 hours as needed for pain continue your pain medications as prescribed follow up with the orthopedist within the next 2 days return if symptoms worsen,persist or if new symptoms develop. Prescriptions: Ibuprofen [Motrin] 600 mg PO Q6H PRN #20 tab PRN Reason: pain/fever reduction Referrals: Ronnell Sue MD [Primary Care Provider] - Follow up with primary Arley Matt MD [Staff Provider] - Follow up with primary Brett Gonzalez III, MD [Medical Doctor] - Follow up with primary Forms: [employer] (American)
[2017-07-05 12:54] VITALS: PULSE 95; RESP 18
[2017-07-05 13:01] VITALS: BP 108/67; O2SAT 97
--- NOTE | 2017-07-05 13:01 | RAD ---
PROCEDURE: Radiographs of the Right Shoulder HISTORY: right shoulder pain COMPARISON: No prior. FINDINGS: BONES: Normal. No fracture. JOINTS: Normal. Glenohumeral and acromioclavicular joints preserved. No osteoarthritis. SOFT TISSUES: Normal. OTHER FINDINGS: None. IMPRESSION: Normal radiographs of the right shoulder.
--- NOTE | 2017-07-05 20:23 | US ---
PROCEDURE: Right upper extremity venous US CLINICAL HISTORY: Arm pain and swelling Evaluate for deep venous thrombosis. PHYSICIAN(S): Brenton Crooks M.D FINDINGS: The visualized rightinternal jugular vein is sonographically normal and compressible. No evidence of obstruction or thrombus is seen. The visualized segments of the right subclavian vein are patent with normal waveforms. No sonographic evidence of obstruction or thrombosis is seen. The visualized deep venous system of the proximal right upper extremity is sonographically normal and compressible. IMPRESSION: 1. No sonographic evidence for deep venous thrombosis in the visualized segments of the right upper extremity.
== END 2017-07-05 13:13 | disposition home or self-care (01) ==
LOC: ED 10:30
DX: M25.511 Pain in right shoulder (principal); M79.1 Myalgia; I10 Essential (primary) hypertension; F17.210 Nicotine dependence, cigarettes, uncomplicated
CPT/HCPCS: 73030; 93971; 96372; 99284; J1885

== ENCOUNTER 2017-07-16 06:07 | Emergency (ER) | payer BC, OTHER ==
[2017-07-16 06:08] VITALS: BMI 35.2
[2017-07-16 06:14] VITALS: TEMP 98.4
--- NOTE | 2017-07-16 07:17 | ED PDOC ---
Arrival/HPI - General Historian: Patient - History of Present Illness Time/Duration: 24 hours Symptom Onset: Gradual Symptom Course: Worsening Quality: Aching, Cramping Severity Level: Moderate Activities at Onset: Rest Context: Home <Shanti Connors - Last Filed: 07/16/17 11:53> <Andre Orr - Last Filed: 07/16/17 14:54> - General Chief Complaint: Abdominal Pain Time Seen by Provider: 07/16/17 07:01 - History of Present Illness Narrative History of Present Illness (Text): 07/16/17 07:20 This is a 51Y F with PMH DM, HTN, HLD, COPD, colon cancer s/p Whipple procedure who came to ED for abdominal pain x 1 day. She reports the pain is epigastric and radiates down to her RLQ. It is intermittent and worse with eating. She has been having some nausea and vomiting. She vomited bile 3 times. She also had 3 episodes of diarrhea that are described as watery and brown in color. She has had these symptoms before and was diagnosed with gastroparesis in the past. The patient reports her grandchild is sick at home with a cold and nausea/vomiting. Patient denies having any new foods or alcohol use. She also complains of chills , but denies CP, SOB, numbness/tingling, dizziness, headache, dysuria or hematuria. 07/16/17 07:26 (Shanti Connors) Past Medical History - Provider Review Nursing Documentation Reviewed: Yes - Travel History Have you recently traveled outside [place] w/in the past 3 mons?: No - Infectious Disease Hx of Infectious Diseases: None - Tetanus Immunization Tetanus Immunization: Unknown - Reproductive Menopause: Yes - Cardiac Hx Cardiac Disorders: Yes Hx Hypertension: Yes - Pulmonary Hx Chronic Obstructive Pulmonary Disease (COPD): Yes - Neurological Hx Neurological Disorder: No - HEENT Hx HEENT Disorder: No - Renal Hx Renal Disorder: No - Endocrine/Metabolic Hx Diabetes Mellitus Type 2: Yes - Hematological/Oncological Other/Comment: colon ca - Integumentary Hx Dermatological Disorder: No - Musculoskeletal/Rheumatological Hx Musculoskeletal Disorders: Yes Hx Falls: Yes - Gastrointestinal Hx Gastrointestinal Disorders: Yes Hx Gastroesophageal Reflux: Yes Other/Comment: colon ca with surgery - Genitourinary/Gynecological Hx Genitourinary Disorders: Yes Hx Urinary Tract Infection: Yes - Psychiatric Hx Psychophysiologic Disorder: No Hx Substance Use: Yes (use treatment) - Surgical History Other/Comment: CA Colon - whipple,CESEREAN X 1 - Anesthesia Hx Anesthesia: No Hx Anesthesia Reactions: No Hx Malignant Hyperthermia: No - Suicidal Assessment Feels Threatened In Home Enviroment: No <Shanti Connors - Last Filed: 07/16/17 11:53> Family/Social History - Physician Review Nursing Documentation Reviewed: Yes Family/Social History: Diabetes, Hypertension, Neoplasm/Cancer Smoking Status: Heavy Smoker > 10 Cigarettes Daily Hx Alcohol Use: No Hx Substance Use: No (use treatment) Hx Substance Use Treatment: Yes <Shanti Connors - Last Filed: 07/16/17 11:53> Allergies/Home Meds <Shanti Connors - Last Filed: 07/16/17 11:53> <Andre Orr - Last Filed: 07/16/17 14:54> Allergies/Adverse Reactions: Allergies acetaminophen Allergy (Verified 02/06/17 23:34) RASH codeine Allergy (Verified 02/06/17 23:34) RASH iodine Allergy (Verified 02/06/17 23:34) RASH Home Medications: Home Meds Medication Instructions Recorded Confirmed Enalapril Maleate 5 mg PO DAILY 05/21/14 07/16/17 Metformin HCl 1,000 mg PO BID 05/21/14 07/16/17 Oxycodone HCl/Acetaminophen 1 tab PO Q8 PRN 04/27/16 07/16/17 [Percocet 5-325 mg Tablet] Hydroxyzine Pamoate 100 mg PO DAILY 02/06/17 07/16/17 Metaxalone [Skelaxin] 800 mg PO QID 02/06/17 07/16/17 Omeprazole 20 mg PO DAILY 02/06/17 07/16/17 Oxycodone HCl [Oxycodone HCl ER] 160 mg PO Q12H 02/06/17 07/16/17 Simvastatin 20 mg PO DAILY 02/06/17 07/16/17 Lyrica 100 mg PO TID 02/07/17 07/16/17 Review of Systems - Physician Review All systems were reviewed & negative as marked: Yes - Review of Systems Constitutional: Normal. absent: Fatigue, Weight Change, Fevers ENT: Normal. absent: Sore Throat Respiratory: Normal. absent: SOB, Cough Cardiovascular: Normal. absent: Chest Pain, Palpitations Gastrointestinal: Abdominal Pain, Diarrhea, Nausea, Vomiting. absent: Hematochezia, Hematemesis Genitourinary Female: Normal. absent: Dysuria, Frequency, Hematuria Musculoskeletal: Normal. absent: Arthralgias, Myalgias Skin: Normal. absent: Rash Neurological: Normal. absent: Headache, Dizziness Psychiatric: Normal. absent: Anxiety <Shanti Connors - Last Filed: 07/16/17 11:53> Physical Exam Vital Signs Reviewed: Yes Temperature: Afebrile Blood Pressure: Normal Pulse: Regular Respiratory Rate: Normal Appearance: Positive for: Well-Appearing, Non-Toxic, Comfortable Pain Distress: None Mental Status: Positive for: Alert and Oriented X 3 - Systems Exam Head: Present: Atraumatic, Normocephalic Pupils: Present: PERRL Extroacular Muscles: Present: EOMI Conjunctiva: Present: Normal Mouth: Present: Dry Neck: Present: Normal Range of Motion Respiratory/Chest: Present: Clear to Auscultation, Good Air Exchange. No: Respiratory Distress, Accessory Muscle Use Cardiovascular: Present: Regular Rate and Rhythm, Normal S1, S2. No: Murmurs Abdomen: Present: Tenderness (epigastric, RUQ, RLQ), Normal Bowel Sounds, Scars (midline scar ). No: Distention, Peritoneal Signs, Rebound, Guarding, Mass/ Organomegaly Back: Present: Normal Inspection Upper Extremity: Present: Normal Inspection. No: Cyanosis, Edema Lower Extremity: Present: Normal Inspection. No: Edema Neurological: Present: GCS=15, CN II-XII Intact, Speech Normal Skin: Present: Warm, Dry, Normal Color. No: Rashes Psychiatric: Present: Alert, Oriented x 3, Normal Insight, Normal Concentration <Shanti Connors - Last Filed: 07/16/17 11:53> - Systems Exam Abdomen: Present: Tenderness <Andre Orr - Last Filed: 07/16/17 14:54> Vital Signs Temp Pulse Resp BP Pulse Ox 07/16/17 12:19 70 16 140/94 H 100 07/16/17 10:22 61 18 137/85 99 07/16/17 09:18 56 L 18 148/85 07/16/17 06:14 98.4 F 65 18 137/83 98 Medical Decision Making Re-evaluation Time: 11:50 Reassessment Condition: Improving,but remains with symptoms - Lab Interpretations I have reviewed the lab results: Yes Interpretation: Abnormal lab values (hyperglycemia) <Shanti Connors - Last Filed: 07/16/17 11:53> - Lab Interpretations I have reviewed the lab results: Yes <Curry Orrzak Chand - Last Filed: 07/16/17 14:54> ED Course and Treatment: 07/16/17 07:19 Impression: This is a 51Y F with PMH DM, HTN, HLD, COPD, colon cancer s/p Whipple procedure who came to ED for abdominal pain x 1 day. Differential Diagnosis included but are not limited to: Diabetic gastroparesis v. gastritis v. pancreatitis Plan: -- CBC, CMP, U/A, Lipase -- EKG -- NS bolus, Zofran -- Reassess and disposition EKG: Ordered, reviewed, and independently interpreted the EKG. Rate : 63 BPM Rhythm : NSR Interpretation : No ST-segment elevations or depressions, no T-wave inversions, normal intervals. Comparison : Similar to previous EKG. Progress Notes: 07/16/17 09:18 Labs reviewed. Patient noted to have hyperglycermia. She continues to have abdominal pain. Morphine 2mg IVP ordered. CT abd/pelvis ordered with PO contrast. 07/16/17 10:23 Patient refusing to drink contrast. Reports stomach is still on fire, Maalox ordered. Will do CT scan w/o contrast since patient refused. 07/16/17 11:39 CT Abdomen and Pelvis without intravenous contrast HISTORY: Abdominal pain COMPARISON: 05/26/2017. FINDINGS: LOWER THORAX: There is linear atelectasis in the right middle lobe. The lung bases are clear. LIVER: The liver is normal in size. There is no intrahepatic biliary ductal dilatation. Again seen is pneumobilia in the left hepatic lobe stable since the prior examination. GALLBLADDER AND BILE DUCTS: Surgically absent. PANCREAS: There are multiple surgical clips in the region of the head and body of the pancreas. The tail of the pancreas is normal in appearance. . No gross lesion or ductal dilatation. SPLEEN: Unremarkable. ADRENALS: There are stable bilateral adrenal adenomas, the larger on the right measures 24 mm. KIDNEYS AND URETERS: Both kidneys are normal in size without hydronephrosis or nephrolithiasis. VASCULATURE: No aortic aneurysm. BOWEL: The proximal small bowel loops are normal in caliber. There is mild dilatation of the distal small bowel loops. There is fecalization of distal small bowel contents. Question of right hemicolectomy. There is cashews distension of the left hemicolon and fecal stasis in the rectum. PERITONEUM: No free fluid. No free air. LYMPH NODES: No pathologic lymphadenopathy. BLADDER: Unremarkable. REPRODUCTIVE: Unremarkable. BONES: No acute fracture. OTHER FINDINGS: None. IMPRESSION: Mild dilatation of the distal small bowel loops and fecalization of small bowel contents most compatible with fecal stasis. No acute abdominal or pelvic abnormality. Stable chronic findings as described above. On reevaluation the patient feels better and is in no acute distress. She has mild epigastric pain upon palpation. I have discussed the results and plan with the patient, who expresses understanding. Patient given the opportunity to ask question, all questions were answered and there is agreement with the plan to discharge the patient home with prescription for Pepcid and Maalox. Patient is stable for discharge. Patient was instructed to follow up with physician/clinic in 1-2 days or return if symptoms persist/worsen or new concerning symptoms arise. (Shanti Connors) 07/16/17 Patient Seen With Resident: In agreement with resident note which contains more details about the patient. Patient was seen and evaluated with resident. Came up with plan and treatment together. 51 yo female with abdominal pain. Abd soft with mild tenderness epigastric area. No guarding. No distension. CT completed and reviewed. On reevaluation patient is feeling much better. She is able to tolerate PO fluids. She was advised to take medications as prescribed and to return to the ED if symptoms worsen or any concerns. (Andre Orr) - Lab Interpretations Lab Results: 07/16/17 08:26 07/16/17 08:26 Lab Results 07/16/17 08:26: Sodium 137, Potassium 4.0, Chloride 102, Carbon Dioxide 26, Anion Gap 13, BUN 15, Creatinine 0.6, Est GFR ( Amer) > 60, Est GFR (Non- Af Amer) > 60, Random Glucose 367 H* D, Calcium 8.8, Total Bilirubin 0.3, AST 13 L, ALT 25, Alkaline Phosphatase 104, Total Protein 6.0, Albumin 3.5, Globulin 2.6, Albumin/Globulin Ratio 1.3, Lipase 29 07/16/17 08:26: Urine Color Yellow, Urine Appearance Clear, Urine pH 6.0, Ur Specific Dawson <= 1.005, Urine Protein Negative, Urine Glucose (UA) >=1000, Urine Ketones Negative, Urine Blood Negative, Urine Nitrate Negative, Urine Bilirubin Negative, Urine Urobilinogen 0.2, Ur Leukocyte Esterase Negative 07/16/17 08:26: WBC 6.4 D, RBC 4.64, Hgb 12.8, Hct 37.8, MCV 81.5, MCH 27.6, MCHC 33.9, RDW 13.4, Plt Count 227, MPV 9.4, Gran % 71.1 H, Lymph % (Auto) 23.4 , [place] % (Auto) 5.2, Eos % (Auto) 0.3 L, Baso % (Auto) 0.0, Gran # 4.52, Lymph # 1.5, [place] # 0.3, Eos # 0.0, Baso # 0.00 - RAD Interpretation Radiology Orders: 07/16/17 10:24 ABD & PELVIS W/O PO OR IV CONT [CT] Stat - Medication Orders Current Medication Orders: Discontinued Medications Al Hydrox/Mg Hydrox/Simethicone (Maalox Plus 30 Ml) 30 ml PO STAT STA Stop: 07/16/17 10:22 Last Admin: 07/16/17 10:40 Dose: 30 ml Sodium Chloride (Sodium Chloride 0.9%) 1,000 mls @ 999 mls/hr IV .Q1H1M STA Stop: 07/16/17 08:29 Last Admin: 07/16/17 07:59 Dose: 999 mls/hr eMAR Start Stop Document 07/16/17 07:59 ID (Rec: 07/16/17 07:59 ID [id number]) Intravenous Solution Start Date 07/16/17 Start Time 07:59 Iohexol (Omnipaque 240 (50 Ml)) Confirm Administered Dose 50 ml .ROUTE .STK-MED ONE Stop: 07/16/17 09:28 Last Admin: 07/16/17 09:42 Dose: Morphine Sulfate (Morphine) 2 mg IVP STAT STA Stop: 07/16/17 09:29 Last Admin: 07/16/17 09:33 Dose: 2 mg MAR Pain Assessment Document 07/16/17 09:33 [place] (Rec: 07/16/17 09:33 [id number] Pain Reassessment Is this a pain reassessment? Yes Sleep Is patient sleeping during reassessment? Yes Pain Scale Used Pain Scale Used Numeric Location Pain Location Body Site Abdomen Description Intensity of Pain at present 10 Acceptable Level of Pain 2 IVP Administration Document 07/16/17 09:33 [place] (Rec: 07/16/17 09:33 [id number] Charges for Administration # of IVP Administrations 1 Ondansetron HCl (Zofran Inj) 4 mg IVP STAT STA Stop: 07/16/17 07:15 Last Admin: 07/16/17 07:59 Dose: 4 mg IVP Administration Document 07/16/17 07:59 [facility] (Rec: 07/16/17 07:59 [id number] Charges for Administration # of IVP Administrations 1 Pantoprazole Sodium (Protonix Inj) 40 mg IVP STAT STA Stop: 07/16/17 07:49 Last Admin: 07/16/17 07:59 Dose: 40 mg IVP Administration Document 07/16/17 07:59 NH (Rec: 07/16/17 07:59 [place] [id number]) Charges for Administration # of IVP Administrations 1 <Shanti Connors - Last Filed: 07/16/17 11:53> - PA / CONVENTIONAL UNDERWRITER / Resident Statement MD/DO has reviewed & agrees with the documentation as recorded. MD/DO has examined the patient and agrees with the treatment plan. - Scribe Statement The provider has reviewed the documentation as recorded by the Scribe <Andre Orr - Last Filed: 07/16/17 14:54> - Scribe Statement Sara Garrett Provider Scribe Attestation: All medical record entries made by the Scribe were at my direction and personally dictated by me. I have reviewed the chart and agree that the record accurately reflects my personal performance of the history, physical exam, medical decision making, and the department course for this patient. I have also personally directed, reviewed, and agree with the discharge instructions and disposition. (Andre Orr) Disposition/Present on Arrival - Present on Arrival Any Indicators Present on Arrival: No History of DVT/PE: No History of Uncontrolled Diabetes: No Urinary Catheter: No History of Decub. Ulcer: No History Surgical Site Infection Following: None - Disposition Have Diagnosis and Disposition been Completed?: Yes Disposition Time: 11:40 Patient Plan: Discharge <Shanti Connors - Last Filed: 07/16/17 11:53> <Curry Orrzak Chand - Last Filed: 07/16/17 14:54> - Disposition Diagnosis: Abdominal pain Disposition: HOME/ ROUTINE Condition: IMPROVED Print Language: CYMRO Additional Instructions: Mrs. Parker, thank you for letting us take care of you today. Your provider was Dr. Connors. You were treated for abdominal pain. The emergency medical care you received today was directed at your acute symptoms. If you were prescribed any medication, please fill it and take as directed. It may take several days for your symptoms to resolve. Return to the Emergency Department if your symptoms worsen, do not improve, or if you have any other problems. Please contact your doctor or call one of the physicians/clinics you have been referred to that are listed on the Patient Visit Information form that is included in your discharge packet. Bring any paperwork you were given at discharge with you along with any medications you are taking to your follow up visit. Our treatment cannot replace ongoing medical care by a primary care provider (PCP) outside of the emergency department. Thank you for allowing the [facility] team to be part of your care today. Prescriptions: Famotidine [Pepcid] 40 mg PO DAILY #7 tab Mag Hydrox/Aluminum Hyd/Simeth [Maalox Advanced Suspension] 30 ml PO TID #1 bottle Ondansetron ODT [Zofran ODT] 4 mg PO Q6 #14 odt Referrals: Ronnell Sue MD [Primary Care Provider] - Follow up with primary Forms: [employer] (Macedonian)
[2017-07-16] MEDS ORDERED: Sodium Chloride 0.9% 1,000 ML IV STA (07:29)
[2017-07-16 08:33] LABS: EOS % 0.3 % (1.5-5.0); GRAN # 4.52 (1.4-6.5); GRAN % 71.1 % (50.0-68.0); HEMATOCRIT 37.8 % (36.0-48.0); LYMPH # 1.5 (1.2-3.4); LYMPH % 23.4 % (22.0-35.0); MEAN CELL VOLUME 81.5 fl (80.0-105.0); MEAN CORPUSCULAR HEMOGLOBIN 27.6 pg (25.0-35.0); MEAN CORPUSCULAR HGB CONC 33.9 g/dl (31.0-37.0); MEAN PLATELET VOLUME 9.4 fl (7.0-11.0); MONO # 0.3 (0.1-0.6); MONO % 5.2 % (1.0-6.0); RED CELL DISTRIBUTION WIDTH 13.4 % (11.5-14.5); WHITE BLOOD COUNT 6.4 10^3/ul (4.5-11.0)
[2017-07-16 08:46] LABS: ALB/GLOB RATIO 1.3 (1.1-1.8); ALKALINE PHOSPHATASE 104 U/L (38-126); ALT/SGPT 25 U/L (7-56); AST/SGOT 13 U/L (14-36); BILIRUBIN,TOTAL 0.3 mg/dL (0.2-1.3); BLOOD UREA NITROGEN 15 mg/dL (7-21); CALCIUM 8.8 mg/dL (8.4-10.5); CARBON DIOXIDE 26 mmol/L (21-33); CHLORIDE 102 mmol/L (98-107); GFR AFRICAN-AMERICAN > 60; LIPASE 29 U/L (23-300); SODIUM 137 mmol/L (132-148); URINE BILIRUBIN NEGATIVE (NEGATIVE); URINE BLOOD NEGATIVE (NEGATIVE); URINE GLUCOSE (UA) >=1000 mg/dL (NEGATIVE); URINE KETONE NEGATIVE (NEGATIVE); URINE LEUKOCYTE ESTERASE NEGATIVE Leu/uL (NEGATIVE); URINE PROTEIN NEGATIVE mg/dL (<30 mg/dL); URINE UROBILINOGEN 0.2 E.U./dL (<1 E.U./dL)
[2017-07-16 08:49] LABS: URINE APPEARANCE CLEAR (CLEAR); URINE COLOR YELLOW (YELLOW)
[2017-07-16 08:57] LABS: GLUCOSE,RANDOM 367 mg/dL (70-110)
[2017-07-16] MEDS ORDERED: Iohexol 240 (50 ml) ONE (09:27)
[2017-07-16] MEDS ORDERED: Morphine 2 mg/ml ISec IVP STA (09:28)
[2017-07-16] MEDS ORDERED: Alum-Mag Hydrox-Simethicone Susp (30 mL) PO STA (10:21)
--- NOTE | 2017-07-16 11:34 | CT ---
PROCEDURE: CT Abdomen and Pelvis without intravenous contrast HISTORY: Abdominal pain COMPARISON: 05/26/2017 TECHNIQUE: CT scan of the abdomen and pelvis was performed without administration of intravenous contrast. Oral contrast was not administered. Coronal and sagittal reformatted images were obtained.. Radiation dose: Total exam DLP = 789.33 mGy-cm. This CT exam was performed using one or more of the following dose reduction techniques: Automated exposure control, adjustment of the mA and/or kV according to patient size, and/or use of iterative reconstruction technique. FINDINGS: LOWER THORAX: There is linear atelectasis in the right middle lobe. The lung bases are clear. LIVER: The liver is normal in size. There is no intrahepatic biliary ductal dilatation. Again seen is pneumobilia in the left hepatic lobe stable since the prior examination. GALLBLADDER AND BILE DUCTS: Surgically absent. PANCREAS: There are multiple surgical clips in the region of the head and body of the pancreas. The tail of the pancreas is normal in appearance. . No gross lesion or ductal dilatation. SPLEEN: Unremarkable. ADRENALS: There are stable bilateral adrenal adenomas, the larger on the right measures 24 mm. KIDNEYS AND URETERS: Both kidneys are normal in size without hydronephrosis or nephrolithiasis. VASCULATURE: No aortic aneurysm. BOWEL: The proximal small bowel loops are normal in caliber. There is mild dilatation of the distal small bowel loops. There is fecalization of distal small bowel contents. Question of right hemicolectomy. There is cashews distension of the left hemicolon and fecal stasis in the rectum. PERITONEUM: No free fluid. No free air. LYMPH NODES: No pathologic lymphadenopathy. BLADDER: Unremarkable. REPRODUCTIVE: Unremarkable. BONES: No acute fracture. OTHER FINDINGS: None. IMPRESSION: Mild dilatation of the distal small bowel loops and fecalization of small bowel contents most compatible with fecal stasis. No acute abdominal or pelvic abnormality. Stable chronic findings as described above.
[2017-07-16 12:19] VITALS: BP 140/94; PULSE 70; RESP 16; O2SAT 100
--- NOTE | 2017-07-17 01:31 | CARD ---
APPROVED REPORT EKG Measurement Heart [id number] VT [id number] <Conclusion> Normal sinus rhythm Normal ECG
== END 2017-07-16 12:20 | disposition home or self-care (01) ==
LOC: ED 06:07
DX: R10.9 Unspecified abdominal pain (principal); I10 Essential (primary) hypertension; E11.9 Type 2 diabetes mellitus without complications; K21.9 Gastro-esophageal reflux disease without esophagitis; Z85.038 Personal history of other malignant neoplasm of large intestine; F17.210 Nicotine dependence, cigarettes, uncomplicated
CPT/HCPCS: 74176; 80053; 81003; 83690; 85025; 93005; 96374; 96375; 99285; C9113; J2270; J2405; J7040; Q9966

== ENCOUNTER 2017-07-17 05:24 | Observation (INO) | payer BC, OTHER ==
[2017-07-17] MEDS ORDERED: Sodium Chloride 0.9% 1,000 ML IV STA ×2 (05:56→08:00)
[2017-07-17] MEDS ORDERED: Atrop/Hyosc/Scopal/PB Elixir (120 ml) PO STA (05:58)
[2017-07-17] MEDS ORDERED: Alum-Mag Hydrox-Simethicone Susp (30 mL) PO STA (05:58)
--- NOTE | 2017-07-17 05:59 | ED PDOC ---
Arrival/HPI - General Chief Complaint: Abdominal Pain Time Seen by Provider: 07/17/17 05:26 Historian: Patient - History of Present Illness Narrative History of Present Illness (Text): 07/17/17 05:56 51 year old female whose past medical history includes diabetes, hypertension, hyperlipidemia, COPD, and colon cancer s/p Whipple procedure, presents to the emergency department by EMS complaining of lower abdominal pain radiating to the lower back associated with vomiting since midnight. Patient was in the emergency department yesterday complaining of epigastric abdominal pain radiating to the RLQ and was discharged with medication. She reports that she's been compliant with her medication, but that went to bed and woke up and vomiting bile. She has had these symptoms before and was diagnosed with gastroparesis in the past. Patient denies any fever, chills, chest pain, shortness of breath, nausea, vomiting, diarrhea, urinary symptoms, neck pain, headache, dizziness, or any other complaints. PMD: Dr. Sue Time/Duration: Other (midnight) Symptom Onset: Gradual Activities at Onset: Light Context: Home Past Medical History - Provider Review Nursing Documentation Reviewed: Yes - Infectious Disease Hx of Infectious Diseases: None - Tetanus Immunization Tetanus Immunization: Unknown - Reproductive Menopause: Yes - Cardiac Hx Cardiac Disorders: Yes Hx Hypertension: Yes - Pulmonary Hx Chronic Obstructive Pulmonary Disease (COPD): Yes - Neurological Hx Neurological Disorder: No - HEENT Hx HEENT Disorder: No - Renal Hx Renal Disorder: No - Endocrine/Metabolic Hx Diabetes Mellitus Type 2: Yes - Hematological/Oncological Other/Comment: colon ca - Integumentary Hx Dermatological Disorder: No - Musculoskeletal/Rheumatological Hx Musculoskeletal Disorders: Yes Hx Falls: Yes - Gastrointestinal Hx Gastrointestinal Disorders: Yes Hx Gastroesophageal Reflux: Yes Other/Comment: colon ca with surgery - Genitourinary/Gynecological Hx Genitourinary Disorders: Yes Hx Urinary Tract Infection: Yes - Psychiatric Hx Psychophysiologic Disorder: No Hx Substance Use: No (use treatment) - Surgical History Other/Comment: CA Colon - whipple,CESEREAN X 1 - Anesthesia Hx Anesthesia: No Hx Anesthesia Reactions: No Hx Malignant Hyperthermia: No - Suicidal Assessment Feels Threatened In Home Enviroment: No Family/Social History - Physician Review Nursing Documentation Reviewed: Yes Family/Social History: No Known Family HX Smoking Status: Heavy Smoker > 10 Cigarettes Daily Hx Alcohol Use: No Hx Substance Use: No (use treatment) Hx Substance Use Treatment: Yes Allergies/Home Meds Allergies/Adverse Reactions: Allergies acetaminophen Allergy (Verified 07/17/17 05:29) RASH codeine Allergy (Verified 07/17/17 05:29) RASH iodine Allergy (Verified 07/17/17 05:29) RASH Home Medications: Home Meds Medication Instructions Recorded Confirmed Enalapril Maleate 5 mg PO DAILY 05/21/14 07/17/17 Metformin HCl 1,000 mg PO BID 05/21/14 07/17/17 Oxycodone HCl/Acetaminophen 1 tab PO Q8 PRN 04/27/16 07/17/17 [Percocet 5-325 mg Tablet] Hydroxyzine Pamoate 100 mg PO DAILY 02/06/17 07/17/17 Metaxalone [Skelaxin] 800 mg PO QID 02/06/17 07/17/17 Omeprazole 20 mg PO DAILY 02/06/17 07/17/17 Oxycodone HCl [Oxycodone HCl ER] 160 mg PO Q12H 02/06/17 07/17/17 Simvastatin 20 mg PO DAILY 02/06/17 07/17/17 Pregabalin [Lyrica] 100 mg PO TID 07/17/17 07/17/17 Review of Systems - Physician Review All systems were reviewed & negative as marked: Yes - Review of Systems Constitutional: absent: Fevers, Other (Chills) Respiratory: absent: SOB Cardiovascular: absent: Chest Pain Gastrointestinal: Abdominal Pain (lower abdominal pain), Vomiting. absent: Diarrhea, Nausea Genitourinary Female: absent: Dysuria, Frequency, Hematuria Musculoskeletal: Back Pain. absent: Neck Pain Neurological: absent: Headache, Dizziness Physical Exam Vital Signs Reviewed: Yes Vital Signs Temp Pulse Resp BP Pulse Ox 07/17/17 11:05 50 L 16 156/76 H 95 07/17/17 09:41 45 L 16 164/78 H 96 07/17/17 07:16 98.2 F 52 L 17 137/63 99 Appearance: Positive for: Well-Appearing, Non-Toxic, Comfortable Pain Distress: None Mental Status: Positive for: Alert and Oriented X 3 - Systems Exam Head: Present: Atraumatic, Normocephalic Pupils: Present: PERRL Extroacular Muscles: Present: EOMI Conjunctiva: Present: Normal Mouth: Present: Moist Mucous Membranes Neck: Present: Normal Range of Motion Respiratory/Chest: Present: Clear to Auscultation, Good Air Exchange. No: Respiratory Distress, Accessory Muscle Use Cardiovascular: Present: Regular Rate and Rhythm, Normal S1, S2. No: Murmurs Abdomen: Present: Tenderness (lower abdominal tenderness), Normal Bowel Sounds. No: Distention, Peritoneal Signs Back: Present: Normal Inspection Upper Extremity: Present: Normal Inspection. No: Cyanosis, Edema Lower Extremity: Present: Normal Inspection. No: Edema Neurological: Present: GCS=15, CN II-XII Intact, Speech Normal Skin: Present: Warm, Dry, Normal Color. No: Rashes Psychiatric: Present: Alert, Oriented x 3, Normal Insight, Normal Concentration Medical Decision Making ED Course and Treatment: 07/17/17 05:56 Impression: 51 year old female presents complaining of lower abdominal pain radiating to the lower back associated with vomiting. Plan: -- Abdomen and pelvis PO & IV Contrast CT -- Labs -- Elixir -- Lidocaine 2% Viscous -- Maalox Plus 30 ml -- Pepcid -- IV Fluids -- Zofran Inj -- Urine Culture -- Urinalysis -- Urine Test -- Reassess and disposition Prior Visits: Notes and results from previous visits were reviewed. On 07/16/2017 patient came in complaining of abdominal pain for one day. Patient was discharged. Progress Notes: Looked over patients prior charts and multiple test results done for similar symptoms. Aware patient was in the emergency department yesterday for abdominal pain. 07/17/17 06:06 EKG shows NSR at 53 BPM. Interpreted by me. - Lab Interpretations Lab Results: 07/17/17 06:15 07/17/17 06:15 Lab Results 07/17/17 06:34: Urine Color Yellow, Urine Appearance Sl cloudy, Urine pH 6.0, Ur Specific [place] 1.020, Urine Protein Trace H, Urine Glucose (UA) >=1000, Urine Ketones 15 H, Urine Blood Trace-lysed H, Urine Nitrate Negative, Urine Bilirubin Negative, Urine Urobilinogen 0.2, Ur Leukocyte Esterase Negative, Urine RBC 0 - 2, Urine WBC 0 - 2, Ur Epithelial Cells 4 - 5, Urine Bacteria Few 07/17/17 06:15: Sodium 140, Potassium 3.9, Chloride 105, Carbon Dioxide 25, Anion Gap 14, BUN 12, Creatinine 0.6, Est GFR ( Amer) > 60, Est GFR (Non- Af Amer) > 60, Random Glucose 349 H*, Calcium 8.9, Total Bilirubin 0.5, AST 22, ALT 27, Alkaline Phosphatase 103, Total Protein 6.3, Albumin 3.6, Globulin 2.7, Albumin/Globulin Ratio 1.3, Amylase 37, Lipase 44 07/17/17 06:15: WBC 4.1 L D, RBC 4.63, Hgb 12.9, Hct 37.6, MCV 81.2, MCH 27.9, MCHC 34.3, RDW 13.6, Plt Count 237, MPV 9.2, Gran % 53.1, Lymph % (Auto) 39.2 H , [place] % (Auto) 6.8 H, Eos % (Auto) 0.7 L, Baso % (Auto) 0.2, Gran # 2.18, Lymph # 1.6, [place] # 0.3, Eos # 0.0, Baso # 0.01 07/17/17 05:42: POC Glucose (mg/dL) 376 H I have reviewed the lab results: Yes - RAD Interpretation Radiology Orders: 07/17/17 05:56 ABD PELVIS PO & IV CONTRAST [CT] Stat - EKG Interpretation Interpreted by ED Physician: Yes Type: 12 lead EKG - Medication Orders Current Medication Orders: Metronidazole (Flagyl) 500 mg in 100 mls @ 100 mls/hr IVPB Q8 NADYA PRN Reason: Protocol Last Admin: 07/17/17 14:45 Dose: Sodium Chloride (Sodium Chloride 0.45%) 1,000 mls @ 40 mls/hr IV .Q24H NADYA Last Admin: 07/17/17 12:45 Dose: 40 mls/hr eMAR Start Stop Document 07/17/17 12:45 EP (Rec: 07/17/17 14:45 EP [facility] [id number] Intravenous Solution Start Date 07/17/17 Start Time 12:45 Cefepime HCl (Maxipime 1gm) 1 gm in 100 mls @ 100 mls/hr IVPB Q8 NADYA PRN Reason: Protocol Stop: 07/26/17 14:01 Last Admin: 07/17/17 14:43 Dose: 100 mls/hr eMAR Start Stop Document 07/17/17 14:43 EP (Rec: 07/17/17 14:44 EP [facility] [id number]) Intravenous Solution Start Date 07/17/17 Start Time 14:44 End Date 07/17/17 End time 15:44 Total Infusion Time 60 Ibuprofen (Motrin Tab) 400 mg PO Q6H PRN PRN Reason: Pain, moderate (4-7) Last Admin: 07/17/17 13:20 Dose: 400 mg MAR Pain/Vitals Document 07/17/17 13:20 AJ (Rec: 07/17/17 13:20 [id number]) Pain Reassessment Is This A Pain ReAssessment? Yes Sleep Is patient sleeping during reassessment? No Presence of Pain Presence of Pain Yes Pain Scale Used Pain Scale Used Numeric Location Pain Location Body Site Abdomen Description Intermittent Intensity 10 Pain Behavior Facial Grimacing Alleviating Factors Medication Re-Assess: [facility] Pain/Vitals Document 07/17/17 14:20 EP (Rec: 07/17/17 18:46 EP [facility] [id number]) Pain Reassessment Is This A Pain ReAssessment? Yes Sleep Is patient sleeping during reassessment? No Presence of Pain Presence of Pain No Insulin Human Regular (Humulin R High) 0 units SC ACHS NADYA PRN Reason: Protocol Last Admin: 07/17/17 17:33 Dose: Not Given Non-Admin Reason: NPO [facility] Blood Glucose Document 07/17/17 17:33 EP (Rec: 07/17/17 17:33 EP [facility] [id number]) Blood Glucose Finger Stick Blood Glucose (70-120) 265 Lisinopril (Zestril) 5 mg PO DAILY [facility] Metoclopramide HCl (Reglan) 10 mg PO ACHS NADYA Last Admin: 07/17/17 17:37 Dose: Not Given Non-Admin Reason: Patient Refused Metaxalone [Skelaxin (] 800 Mg (Home Med)) 800 mg PO QID NADYA Last Admin: 07/17/17 17:34 Dose: Ondansetron HCl (Zofran Inj) 4 mg IVP Q6H PRN PRN Reason: Nausea/Vomiting Last Admin: 07/17/17 12:59 Dose: 4 mg IVP Administration Document 07/17/17 12:59 AJ (Rec: 07/17/17 12:59 [id number]) Charges for Administration # of IVP Administrations 1 Oxycodone HCl (Oxycontin Extended Release Tab) 80 mg PO Q12 NADYA Pantoprazole Sodium (Protonix Inj) 40 mg IVP 0600 [facility] Potassium Chloride (K-Dur 20 Meq Er Tab) 10 meq PO DAILY NADYA Pregabalin (Lyrica) 100 mg PO TID NADYA Last Admin: 07/17/17 18:56 Dose: 100 mg Sitagliptin Phosphate (Januvia) 50 mg PO DAILY NADYA Discontinued Medications Al Hydrox/Mg Hydrox/Simethicone (Maalox Plus 30 Ml) 30 ml PO STAT STA Stop: 07/17/17 05:59 Last Admin: 07/17/17 06:35 Dose: 30 ml Belladonna/Phenobarbital ( Elixir) 10 ml PO STAT STA Stop: 07/17/17 05:59 Last Admin: 07/17/17 06:35 Dose: 10 ml Famotidine (Pepcid) 20 mg IVP STAT STA Stop: 07/17/17 05:57 Last Admin: 07/17/17 06:27 Dose: 20 mg IVP Administration Document 07/17/17 06:27 RD (Rec: 07/17/17 06:35 RD [id number]) Charges for Administration # of IVP Administrations 1 Sodium Chloride (Sodium Chloride 0.9%) 1,000 mls @ 100 mls/hr IV .Q10H STA Stop: 07/17/17 15:55 Last Admin: 07/17/17 06:35 Dose: 100 mls/hr eMAR Start Stop Document 07/17/17 06:35 RD (Rec: 07/17/17 06:35 RD [id number]) Intravenous Solution Start Date 07/17/17 Start Time 06:35 End Date 07/17/17 End time 08:15 Total Infusion Time 100 Sodium Chloride (Sodium Chloride 0.9%) 1,000 mls @ 1,000 mls/hr IV .Q1H STA Stop: 07/17/17 08:59 Last Admin: 07/17/17 08:15 Dose: 1,000 mls/hr eMAR Start Stop Document 07/17/17 08:15 (Rec: 07/17/17 08:15 [facility] [id number][place] Intravenous Solution Start Date 07/17/17 Start Time 08:15 End Date 07/17/17 End time 11:04 Total Infusion Time 169 Metronidazole (Flagyl) 500 mg in 100 mls @ 100 mls/hr IVPB STAT STA PRN Reason: Protocol Stop: 07/17/17 10:38 Last Admin: 07/17/17 11:04 Dose: 100 mls/hr eMAR Start Stop Document 07/17/17 11:04 (Rec: 07/17/17 11:04 [facility] [id number][place] Intravenous Solution Start Date 07/17/17 Start Time 11:04 Ceftriaxone Sodium (Rocephin 1 Gram Ivpb) 1 gm in 100 mls @ 200 mls/hr IV STAT STA PRN Reason: Protocol Stop: 07/17/17 10:08 Last Admin: 07/17/17 10:13 Dose: 200 mls/hr eMAR Start Stop Document 07/17/17 10:13 (Rec: 07/17/17 10:16 [facility] [id number][place] Intravenous Solution Start Date 07/17/17 Start Time 10:16 End Date 07/17/17 End time 11:04 Total Infusion Time 48 Iohexol (Omnipaque 350 150 Ml) Confirm Administered Dose 150 ml .ROUTE .STK-MED ONE Stop: 07/17/17 06:16 Iohexol (Omnipaque 350 100 Ml) Confirm Administered Dose 350 mg .ROUTE .STK-MED ONE Stop: 07/17/17 08:53 Ketorolac Tromethamine (Toradol) 15 mg IVP STAT STA Stop: 07/17/17 08:01 Last Admin: 07/17/17 08:15 Dose: 15 mg MAR Pain Assessment Document 07/17/17 08:15 (Rec: 07/17/17 08:16 [facility] [id number][place] Pain Reassessment Is this a pain reassessment? Yes Sleep Is patient sleeping during reassessment? No Presence of Pain Presence of Pain Yes IVP Administration Document 07/17/17 08:15 (Rec: 07/17/17 08:16 [facility] [id number][place] Charges for Administration # of IVP Administrations 1 Lidocaine HCl (Lidocaine 2% Viscous) 10 ml PO STAT STA Stop: 07/17/17 05:59 Last Admin: 07/17/17 06:35 Dose: 10 ml Morphine Sulfate (Morphine) 4 mg IVP STAT STA Stop: 07/17/17 09:47 Last Admin: 07/17/17 10:11 Dose: 4 mg MAR Pain Assessment Document 07/17/17 10:11 (Rec: 07/17/17 10:12 [facility] [id number][place] Pain Reassessment Is this a pain reassessment? Yes Sleep Is patient sleeping during reassessment? No Presence of Pain Presence of Pain Yes IVP Administration Document 07/17/17 10:11 (Rec: 07/17/17 10:12 [facility] [id number]) Charges for Administration # of IVP Administrations 1 Morphine Sulfate (Morphine) 2 mg IVP Q4H PRN PRN Reason: Pain, severe (8-10) Last Admin: 07/17/17 12:58 Dose: 2 mg Comments: not given medication d/c ..heart rate 43 DEC Pain Assessment Document 07/17/17 12:58 AJ (Rec: 07/17/17 12:59 [place] [id number]) Pain Reassessment Is this a pain reassessment? No Description Pain Behavior Facial Grimacing IVP Administration Document 07/17/17 12:58 AJ (Rec: 07/17/17 12:59 AJ [place] [id number]) Charges for Administration # of IVP Administrations 0 Ondansetron HCl (Zofran Inj) 4 mg IVP STAT STA Stop: 07/17/17 05:57 Last Admin: 07/17/17 06:25 Dose: 4 mg IVP Administration Document 07/17/17 06:25 RD (Rec: 07/17/17 06:34 RD [id number]) Charges for Administration # of IVP Administrations 1 Oxycodone HCl (Oxycontin Extended Release Tab) 160 mg PO Q12 NADYA Oxycodone HCl (Oxycontin Extended Release Tab) 160 mg PO Q12 NADYA - Scribe Statement The provider has reviewed the documentation as recorded by the Scribe Mayur Larios All medical record entries made by the Scribe were at my direction and personally dictated by me. I have reviewed the chart and agree that the record accurately reflects my personal performance of the history, physical exam, medical decision making, and the department course for this patient. I have also personally directed, reviewed, and agree with the discharge instructions and disposition. Disposition/Present on Arrival - Present on Arrival Any Indicators Present on Arrival: No History of DVT/PE: No History of Uncontrolled Diabetes: No Urinary Catheter: No History of Decub. Ulcer: No History Surgical Site Infection Following: None - Disposition Have Diagnosis and Disposition been Completed?: Yes Diagnosis: Intractable abdominal pain Disposition: HOSPITALIZED Disposition Time: 07:00 Patient Problems: Current Active Problems Problem Status Onset Intractable abdominal pain Acute Condition: STABLE
[2017-07-17 06:43] LABS: BASO # 0.01 K/mm3 (0.0-2.0); BASO % 0.2 % (0.0-3.0); EOS % 0.7 % (1.5-5.0); GRAN # 2.18 (1.4-6.5); GRAN % 53.1 % (50.0-68.0); HEMATOCRIT 37.6 % (36.0-48.0); LYMPH # 1.6 (1.2-3.4); LYMPH % 39.2 % (22.0-35.0); MEAN CELL VOLUME 81.2 fl (80.0-105.0); MEAN CORPUSCULAR HEMOGLOBIN 27.9 pg (25.0-35.0); MEAN CORPUSCULAR HGB CONC 34.3 g/dl (31.0-37.0); MEAN PLATELET VOLUME 9.2 fl (7.0-11.0); MONO # 0.3 (0.1-0.6); MONO % 6.8 % (1.0-6.0); RED CELL DISTRIBUTION WIDTH 13.6 % (11.5-14.5); WHITE BLOOD COUNT 4.1 10^3/ul (4.5-11.0)
[2017-07-17 06:44] LABS: URINE BILIRUBIN NEGATIVE (NEGATIVE); URINE BLOOD TRACE-LYSED (NEGATIVE); URINE GLUCOSE (UA) >=1000 mg/dL (NEGATIVE); URINE KETONE 15 mg/dL (NEGATIVE); URINE LEUKOCYTE ESTERASE NEGATIVE Leu/uL (NEGATIVE); URINE PROTEIN TRACE mg/dL (<30 mg/dL); URINE UROBILINOGEN 0.2 E.U./dL (<1 E.U./dL)
[2017-07-17 06:46] LABS: URINE APPEARANCE SL CLOUDY (CLEAR); URINE COLOR YELLOW (YELLOW)
[2017-07-17 06:58] LABS: URINE WBC 0 - 2 /hpf (0-6)
[2017-07-17 06:59] LABS: ALB/GLOB RATIO 1.3 (1.1-1.8); ALKALINE PHOSPHATASE 103 U/L (38-126); ALT/SGPT 27 U/L (7-56); AMYLASE 37 U/L (35-125); AST/SGOT 22 U/L (14-36); BILIRUBIN,TOTAL 0.5 mg/dL (0.2-1.3); BLOOD UREA NITROGEN 12 mg/dL (7-21); CALCIUM 8.9 mg/dL (8.4-10.5); CARBON DIOXIDE 25 mmol/L (21-33); CHLORIDE 105 mmol/L (98-107); GFR AFRICAN-AMERICAN > 60; LIPASE 44 U/L (23-300); POTASSIUM 3.9 mmol/L (3.6-5.0); SODIUM 140 mmol/L (132-148); TOTAL PROTEIN 6.3 g/dL (5.8-8.3)
[2017-07-17 06:59] LABS: URINE BACTERIA FEW (NEG)
[2017-07-17 07:00] LABS: URINE RBC 0 - 2 /hpf (0-2)
[2017-07-17 07:00] LABS: GLUCOSE,RANDOM 349 mg/dL (70-110)
--- NOTE | 2017-07-17 07:21 | ED PDOC ---
Physical Exam Vital Signs Temp Pulse Resp BP Pulse Ox 07/17/17 09:41 45 L 16 164/78 H 96 07/17/17 07:16 98.2 F 52 L 17 137/63 99 Medical Decision Making ED Course and Treatment: 07/17/17 07:00 Patient signed out to me by Dr. Brown. 51 year old female complaining of abdominal discomfort. Pending CT scan. 07/17/17 08:55 On reevaluation, Patient is tolerating contrast without difficulty. Patient complains of residual pain but is feeling better. Abdomen is soft, non-tender, and non-distended. 07/17/17 09:34 Case discussed with radiologist, who says that there is no bowel obstruction but she thinks that there is an inflammatory/infectious process going on. 07/17/17 09:[address] Mazariegos, covering for Dr. Mcclendon, who accepts admission to Dr. Mcclendon's service. 07/17/17 09:[address] Mazariegos, asked to consult Dr. Mejia for GI. - Lab Interpretations Lab Results: 07/17/17 06:15 07/17/17 06:15 Lab Results 07/17/17 06:34: Urine Color Yellow, Urine Appearance Sl cloudy, Urine pH 6.0, Ur Specific [place] 1.020, Urine Protein Trace H, Urine Glucose (UA) >=1000, Urine Ketones 15 H, Urine Blood Trace-lysed H, Urine Nitrate Negative, Urine Bilirubin Negative, Urine Urobilinogen 0.2, Ur Leukocyte Esterase Negative, Urine RBC 0 - 2, Urine WBC 0 - 2, Ur Epithelial Cells 4 - 5, Urine Bacteria Few 07/17/17 06:15: Sodium 140, Potassium 3.9, Chloride 105, Carbon Dioxide 25, Anion Gap 14, BUN 12, Creatinine 0.6, Est GFR ( Amer) > 60, Est GFR (Non- Af Amer) > 60, Random Glucose 349 H*, Calcium 8.9, Total Bilirubin 0.5, AST 22, ALT 27, Alkaline Phosphatase 103, Total Protein 6.3, Albumin 3.6, Globulin 2.7, Albumin/Globulin Ratio 1.3, Amylase 37, Lipase 44 07/17/17 06:15: WBC 4.1 L D, RBC 4.63, Hgb 12.9, Hct 37.6, MCV 81.2, MCH 27.9, MCHC 34.3, RDW 13.6, Plt Count 237, MPV 9.2, Gran % 53.1, Lymph % (Auto) 39.2 H , [place] % (Auto) 6.8 H, Eos % (Auto) 0.7 L, Baso % (Auto) 0.2, Gran # 2.18, Lymph # 1.6, [place] # 0.3, Eos # 0.0, Baso # 0.01 07/17/17 05:42: POC Glucose (mg/dL) 376 H - RAD Interpretation Radiology Orders: 07/17/17 05:56 ABD PELVIS PO & IV CONTRAST [CT] Stat - Medication Orders Current Medication Orders: Sodium Chloride (Sodium Chloride 0.9%) 1,000 mls @ 100 mls/hr IV .Q10H STA Stop: 07/17/17 15:55 Last Admin: 07/17/17 06:35 Dose: 100 mls/hr eMAR Start Stop Document 07/17/17 06:35 RD (Rec: 07/17/17 06:35 RD [id number]) Intravenous Solution Start Date 07/17/17 Start Time 06:35 End Date 07/17/17 End time 08:15 Total Infusion Time 100 Metronidazole (Flagyl) 500 mg in 100 mls @ 100 mls/hr IVPB STAT STA PRN Reason: Protocol Stop: 07/17/17 10:38 Ceftriaxone Sodium (Rocephin 1 Gram Ivpb) 1 gm in 100 mls @ 200 mls/hr IV STAT STA PRN Reason: Protocol Stop: 07/17/17 10:08 Discontinued Medications Al Hydrox/Mg Hydrox/Simethicone (Maalox Plus 30 Ml) 30 ml PO STAT STA Stop: 07/17/17 05:59 Last Admin: 07/17/17 06:35 Dose: 30 ml Belladonna/Phenobarbital ( Elixir) 10 ml PO STAT STA Stop: 07/17/17 05:59 Last Admin: 07/17/17 06:35 Dose: 10 ml Famotidine (Pepcid) 20 mg IVP STAT STA Stop: 07/17/17 05:57 Last Admin: 07/17/17 06:27 Dose: 20 mg IVP Administration Document 07/17/17 06:27 RD (Rec: 07/17/17 06:35 RD [id number]) Charges for Administration # of IVP Administrations 1 Sodium Chloride (Sodium Chloride 0.9%) 1,000 mls @ 1,000 mls/hr IV .Q1H STA Stop: 07/17/17 08:59 Last Admin: 07/17/17 08:15 Dose: 1,000 mls/hr eMAR Start Stop Document 07/17/17 08:15 (Rec: 07/17/17 08:15 [id number] Intravenous Solution Start Date 07/17/17 Start Time 08:15 Iohexol (Omnipaque 350 150 Ml) Confirm Administered Dose 150 ml .ROUTE .STK-MED ONE Stop: 07/17/17 06:16 Iohexol (Omnipaque 350 100 Ml) Confirm Administered Dose 350 mg .ROUTE .STK-MED ONE Stop: 07/17/17 08:53 Ketorolac Tromethamine (Toradol) 15 mg IVP STAT STA Stop: 07/17/17 08:01 Last Admin: 07/17/17 08:15 Dose: 15 mg MAR Pain Assessment Document 07/17/17 08:15 (Rec: 07/17/17 08:16 [facility] [id number] Pain Reassessment Is this a pain reassessment? Yes Sleep Is patient sleeping during reassessment? No Presence of Pain Presence of Pain Yes IVP Administration Document 07/17/17 08:15 (Rec: 07/17/17 08:16 [facility] [id number][place] Charges for Administration # of IVP Administrations 1 Lidocaine HCl (Lidocaine 2% Viscous) 10 ml PO STAT STA Stop: 07/17/17 05:59 Last Admin: 07/17/17 06:35 Dose: 10 ml Morphine Sulfate (Morphine) 4 mg IVP STAT STA Stop: 07/17/17 09:47 Ondansetron HCl (Zofran Inj) 4 mg IVP STAT STA Stop: 07/17/17 05:57 Last Admin: 07/17/17 06:25 Dose: 4 mg IVP Administration Document 07/17/17 06:25 RD (Rec: 07/17/17 06:34 RD [id number]) Charges for Administration # of IVP Administrations 1 - Scribe Statement The provider has reviewed the documentation as recorded by the Nel Trammell Provider Scribe Attestation: All medical record entries made by the Nle were at my direction and personally dictated by me. I have reviewed the chart and agree that the record accurately reflects my personal performance of the history, physical exam, medical decision making, and the department course for this patient. I have also personally directed, reviewed, and agree with the discharge instructions and disposition. Disposition/Present on Arrival - Present on Arrival Any Indicators Present on Arrival: No History of DVT/PE: No History of Uncontrolled Diabetes: No Urinary Catheter: No History of Decub. Ulcer: No History Surgical Site Infection Following: None - Disposition Have Diagnosis and Disposition been Completed?: Yes Diagnosis: Intractable abdominal pain Disposition: HOSPITALIZED Disposition Time: 09:47 Patient Plan: Admission Patient Problems: Current Active Problems Problem Status Onset Intractable abdominal pain Acute Condition: STABLE
[2017-07-17] MEDS ORDERED: Iohexol 350 MG/100 ML VIAL ONE (08:52)
[2017-07-17] MEDS ORDERED: cefTRIAXone 1 gm 1 GM/100 ML BAG IV STA (09:39)
[2017-07-17] MEDS ORDERED: metroNIDAZOLE IV 500 mg/100 ml 500 MG/100 ML BAG IVPB STA (09:39)
--- NOTE | 2017-07-17 09:39 | CT ---
PROCEDURE: CT Abdomen and Pelvis with contrast HISTORY: Lower abdominal pain COMPARISON: 07/16/2017. TECHNIQUE: CT scan of the abdomen and pelvis was performed after intravenous administration of contrast. Oral contrast was administered. Coronal and sagittal reformatted images were obtained. Contrast dose: 100 mL Omnipaque 350 Radiation dose: Total exam DLP = 725.51 mGy-cm. This CT exam was performed using one or more of the following dose reduction techniques: Automated exposure control, adjustment of the mA and/or kV according to patient size, and/or use of iterative reconstruction technique. FINDINGS: LOWER THORAX: Again seen is linear atelectasis in the right middle lobe and dependent atelectasis in the lower lobes. LIVER: The liver is normal in size and there is homogeneous enhancement. Again seen is pneumobilia in the left hepatic lobe most compatible with postsurgical etiology. No intra hepatic biliary ductal dilatation. GALLBLADDER AND BILE DUCTS: Surgically absent. PANCREAS: The head of the pancreas is not visualized and likely related to surgical resection. There is mild atrophy of the body and tail of the pancreas. SPLEEN: The spleen is normal in size and there is homogeneous enhancement without focal lesion. ADRENALS: Again seen are bilateral adrenal adenomas, the larger on the left measures 2.4 cm. KIDNEYS AND URETERS: Both kidneys are normal in size and there is homogeneous enhancement without hydronephrosis or focal mass. VASCULATURE: No aortic aneurysm. BOWEL: Status post subtotal colectomy. The proximal small bowel loops are normal in caliber. There is apparent mild mural thickening in the visualized distal colon and rectum. No bowel dilatation or obstruction. PERITONEUM: No free fluid. No free air. LYMPH NODES: No enlarged lymph nodes. BLADDER: Unremarkable. REPRODUCTIVE: The uterus is normal in size. There is fluid within the endometrial cavity. BONES: No acute fracture. OTHER FINDINGS: None. IMPRESSION: 1. History of pancreatic and colon cancers. Status post subtotal colectomy. Apparent mild mural thickening of the visualized distal colon and rectum could be related to nonspecific infectious/ inflammatory colitis/ proctitis. No evidence of bowel obstruction. 2. Fluid within the endometrial cavity. A dedicated pelvic ultrasound is recommended for further evaluation.
[2017-07-17] MEDS ORDERED: Morphine 4 mg/ml ISec IVP STA (09:46)
[2017-07-17] MEDS ORDERED: Sodium Chloride 0.45% 1,000 ML IV SCH (12:15)
[2017-07-17] MEDS ORDERED: Morphine 2 mg/ml ISec IVP PRN (12:39)
[2017-07-17 13:56] VITALS: BMI 33.5
[2017-07-17] MEDS: Cefepime 1gm in NS 100ml 1 GM/100 ML BAG IVPB SCH ×2 (14:43→21:07)
[2017-07-17] MEDS: METAXALONE 800 MG PO SCH ×3 (14:44→21:08)
[2017-07-17] MEDS: metroNIDAZOLE IV 500 mg/100 ml 500 MG/100 ML BAG IVPB SCH ×2 (14:45→23:00)
[2017-07-17 17:10] VITALS: PULSE 45; RESP 20
[2017-07-17] MEDS: Insulin Reg-HIGH-Coverage SC SCH ×2 (17:33→21:40)
[2017-07-17] MEDS ORDERED: oxyCODONE 80 mg ER Tab (oxyCONTIN) PO SCH ×2 (18:30→22:00)
--- NOTE | 2017-07-17 19:30 | CARD ---
APPROVED REPORT EKG Measurement Heart [id number] FL [id number] [id number] <Conclusion> Sinus bradycardia Otherwise normal ECG
[2017-07-17] MEDS: oxyCODONE 80 mg ER Tab (oxyCONTIN) PO SCH (21:08)
[2017-07-17] MEDS ORDERED: Ciprofloxacin 400mg/200ml D5W 400 MG/200 ML BAG IVPB SCH (22:00)
--- NOTE | 2017-07-18 03:16 | HP ---
HISTORY OF PRESENT ILLNESS: I know the patient very well from the office. REVIEW OF SYSTEMS: No acute vision or hearing changes. No sore throat. No neck pain. No shortness of breath, coughing or congestion. No chest pain or palpitation. She is having abdominal pain, lower quadrant, has moved around. Has nausea and vomiting bile. No diarrhea or constipation, but is a little bit distended for her. No extremity pains. No swelling. The skin for the part is intact. She tells me, no apparent rashes. Not nervous, not anxious, no headaches, no dizziness. PHYSICAL EXAMINATION VITAL SIGNS: She has a 98.2 temperature, 52 pulse, 137/53 blood pressure, 17 respiratory rate, 99% O2 saturation on room air. HEENT: Head is atraumatic, normocephalic. Extraocular muscles are intact. Pupils are equal, round, reactive to light and accommodation. Throat is moist. NECK: Supple. HEART: Regular rate. LUNGS: Decreased breath sounds. Clear to auscultation. No wheezes, no rhonchi, no rales. ABDOMEN: Mildly distended. She had received some pain medications, so it is not that tender. I do not feel any masses, may be little discomfort in the right lower quadrant. Almost, no bowel sounds. EXTREMITIES: No edema. SKIN: For the most part is intact that I could see. NEUROLOGIC: GCS is 15. Cranial nerves II through XII grossly intact. Normal speech. She is alert and oriented x3. Thyroid midline. No palpable lymphadenopathy appreciated. LABORATORY DATA: She had multiple tests. Urine shows trace. Chemistries, sodium 140, potassium 3.9, BUN 12, creatinine 0.6. GFR is greater than 60. Sugars 349, on pretty long coverage and back on her medications. Calcium is 8.9, total bilirubin is 0.5, AST is 22, ALT is 27, alkaline phosphatase 103, total protein 6.3, albumin is 3.65 and 2.7, amylase is 37, lipase is 44. White count is 4.1, hemoglobin 12.9, hematocrit 37.6, platelets are 237. She did have a CAT scan of the abdomen and pelvis, it showed history of pancreatic and colon cancer, status post subtotal colectomy apparent, mild mural thickening of the visualized distal colon and rectum, could be related to nonspecific infectious inflammatory colitis, proctitis. No evidence of bowel obstruction. Fluid within the endometrial cavity, I am not sure what this means. We will do a pelvic ultrasound. I consulted GI, infectious disease, [employer]. She will be on IV fluids, IV antibiotics, n.p.o. except meds. History of colitis. Failed outpatient treatment. Mayur Mcclendon DO
[2017-07-18] MEDS: Cefepime 1gm in NS 100ml 1 GM/100 ML BAG IVPB SCH (05:32)
--- NOTE | 2017-07-18 05:51 | CON ---
DATE: 07/17/2017 LOCATION: The patient is in room 568, bed 1. This consult I am doing on behalf of Dr. Jose whom I am covering. REASON FOR CONSULTATION: Bradycardia, abdominal pain, hypertension, diabetes. HISTORY OF PRESENT ILLNESS: The patient is a 51-year-old female known case of hypertension, diabetes, hip pain, admitted with abdominal pain. The patient was found to have bradycardia. The patient states that she has many years of bradycardia. She does not have any symptoms or dizziness, chest pain, shortness of breath or syncopal episodes. PAST MEDICAL HISTORY: Positive for bradycardia as mentioned, colon surgery for CA, Whipple procedure, diabetes, hypertension, high cholesterol, hip pain. PERSONAL HISTORY: The patient still smokes about half pack a day. Denies drinking. ALLERGIES: THE PATIENT STATES SHE IS ALLERGIC TO ACETAMINOPHEN AND IODINE. FAMILY HISTORY: Positive for hypertension. MEDICATIONS: The patient's medications at home, the patient was taking enalapril 5 mg p.o. daily, metformin 1000 mg b.i.d., oxycodone hydrochloride 1 tablet q. 8 hours, hydroxizine pamoate 100 mg p.o. daily, Skelaxin 800 mg p.o. q.i.d., omeprazole 20 mg daily, oxycodone hydrochloride ER 160 p.o. q. 12 hours, simvastatin 20 daily, Lyrica 100 mg p.o. t.i.d. REVIEW OF SYSTEMS: All other systems are reviewed. Positive mentioned in the history, otherwise negative. PHYSICAL EXAMINATION: VITAL SIGNS: Blood pressure 136/68, respirations 20. When I examined the patient, the patient's pulse was around 56 per minute, on the chart it was recorded about 45. The patient's temperature 98.6. HEENT: Head is normocephalic. Eyes: Pupils normal. Conjunctivae slightly pale. Nose and throat normal. NECK: JVP low. Carotid are equal. THORAX: AP diameter is normal. LUNGS: Clear. CARDIOVASCULAR: S1 and S2. ABDOMEN: Soft. No tender. No organomegaly. Bowel sounds normal. EXTREMITIES: No clubbing, no cyanosis. LABORATORY DATA: WBC 4.1, hemoglobin 12.0, hematocrit 37.6, platelets 237. Sodium 140, potassium 3.9, BUN 12, creatinine 0.6. Sugar 349. AST, ALT, alkaline phosphatase, total protein, albumin normal. EKG showed sinus bradycardia [address] abdomen and pelvis mild mural thickening of the visualized distal colon and rectum could be related to nonspecific infectious or inflammatory colitis, proctitis. Fluid within the endometrial cavity. DIAGNOSES: Bradycardia asymptomatic, hypertension, diabetes, hyperlipidemia, abdominal pain, hip pain. PLAN: The patient had echo on 05/27/2017 showed ejection fraction of 68%, normal LV, mild tricuspid regurg, RSVP 42 mmHg suggestive of mild pulmonary hypertension grade 1, abnormal relaxation pattern. The patient is on half normal saline 40 mL an hour, metronidazole 500 mg IV q. 8 hours, Januvia 50 mg p.o. daily, potassium 10 mEq p.o. daily, Lyrica 100 mg t.i.d., Maxipime 1 g IV q. 8 hour, Skelaxin 800 mg p.o. q.i.d., Motrin 400 mg p.o. q. 6 hours p.r.n., oxycodone extended release 80 mg q. 12 hours, Protonix 40 mg IV daily, Reglan 10 p.o. a.c. and at bedtime. We will check TSH and lipid profile in the morning and CBC in the morning. We will follow. Steve Dinero MD
[2017-07-18] MEDS ORDERED: Pantoprazole 40mg/100ml IVPB 40 MG/100 ML BAG IVPB SCH (06:00)
[2017-07-18] MEDS: metroNIDAZOLE IV 500 mg/100 ml 500 MG/100 ML BAG IVPB SCH (06:29)
[2017-07-18 06:34] LABS: HEMATOCRIT 32.4 % (36.0-48.0); MEAN CELL VOLUME 81.2 fl (80.0-105.0); MEAN CORPUSCULAR HEMOGLOBIN 27.3 pg (25.0-35.0); MEAN CORPUSCULAR HGB CONC 33.6 g/dl (31.0-37.0); MEAN PLATELET VOLUME 9.5 fl (7.0-11.0); RED CELL DISTRIBUTION WIDTH 13.7 % (11.5-14.5); WHITE BLOOD COUNT 4.8 10^3/ul (4.5-11.0)
[2017-07-18 06:44] LABS: ALB/GLOB RATIO 1.2 (1.1-1.8); ALKALINE PHOSPHATASE 72 U/L (38-126); ALT/SGPT 29 U/L (7-56); AST/SGOT 22 U/L (14-36); BILIRUBIN,TOTAL 0.5 mg/dL (0.2-1.3); BLOOD UREA NITROGEN 11 mg/dL (7-21); CALCIUM 8.2 mg/dL (8.4-10.5); CARBON DIOXIDE 20 mmol/L (21-33); CHLORIDE 106 mmol/L (98-107); CHOLESTEROL 168 mg/dL (130-200); GFR AFRICAN-AMERICAN > 60; POTASSIUM 3.9 mmol/L (3.6-5.0); SODIUM 136 mmol/L (132-148); TOTAL PROTEIN 5.1 g/dL (5.8-8.3)
[2017-07-18 06:49] LABS: GLUCOSE,RANDOM 301 mg/dL (70-110)
--- NOTE | 2017-07-18 07:09 | CON ---
DATE: 07/17/2017 The patient is seen in the room 568, bed #1. CHIEF COMPLAINT: Abdominal pain from several days. HISTORY OF PRESENT ILLNESS: A 51-year-old female with obesity, BMI of 34 with a history of colon cancer, had Whipple's procedure done at [facility], also history of high cholesterol, diabetes mellitus, hypertension, urinary tract infection and history of Whipple's and history of tubal ligation who was allergic to acetaminophen with codeine and also with iodine, was admitting with abdominal pain. No fevers. No chills. Had nausea, one episode of vomiting, abdominal pain, pelvic pain and epigastric pain. The changes according to the patient is dull in nature without radiation and no dysuria or frequency. No diarrhea. No bright red blood per rectum. No chest pain, shortness of breath or cough. PAST MEDICAL HISTORY: Significant for colon cancer, high cholesterol, diabetes, hypertension, urinary tract infection and obesity with BMI of 34. PAST SURGICAL HISTORY: Significant for Whipple's procedure at [facility] also with tubal ligation. ALLERGIES: INCLUDE ACETAMINOPHEN, CODEINE AND IODINE. MEDICATIONS AT HOME: Reveals the patient to be on Lyrica, Enalapril, , insulin, ibuprofen, hydroxyzine, Pepcid, oxycodone, Zofran, omeprazole, Reglan, metformin, Januvia, potassium, Protonix, oxycodone with acetaminophen and simvastatin. PHYSICAL EXAMINATION: GENERAL: The patient is in bed. VITAL SIGNS: Temperature of 98, blood pressure is 130/60, respiratory rate of 18 and heart rate of 52. HEENT: Unremarkable. NECK: Supple. LUNGS: Has decreased breath sounds. HEART: Normal S1 and S2. ABDOMEN: Soft and nontender. No rebound. No guarding. LABORATORY DATA: Reveals a white count of 4.1, hemoglobin of 12 and platelet of 237. BUN of 12, creatinine of 0.6 and random glucose is 349. The urinalysis shows trace protein. The patient's CAT scan of the abdomen and pelvis was read by Rhonda Amezquita. The reading is an impression is history of pancreatic and colon cancer, status post subtotal colectomy, mural thickening of the visual distal colon and rectum could be related to nonspecific infectious inflammatory colitis and proctitis. No evidence of bowel obstruction, fluid within the endometrial cavity, recommended a pelvic ultrasound by Dr. . ASSESSMENT AND PLAN: This is a 51-year-old female with obese, body mass index of 34; colon cancer, status post Whipple's procedure; high cholesterol; diabetes; hypertension; urinary tract infection admitted now with abdominal pain with colitis with normal amylase and lipase and normal white count. We will treat the patient with Maxipime and Flagyl. Pending surgical and gynecology and gastrointestinal consultation. We will also do an human immunodeficiency virus. We will discontinued Cipro and follow with you. Parag Jackson MD
[2017-07-18 08:02] VITALS: BP 128/80; TEMP 98.1; O2SAT 100
[2017-07-18] MEDS: Insulin Reg-HIGH-Coverage SC SCH ×2 (08:33→11:49)
--- NOTE | 2017-07-18 08:43 | CP.PCM.CON ---
History of Present Illness - History of Present Illness History of Present Illness: Asked by Dr. Mcclendon for a GI consultation on this patient. 51 year old female with history of obesity, uncontrolled DM, gastroparesis, chronic lower back pain on narcotic medication, colon and pancreatic cancers s/p partial colectomy and whipple's who presents to hospital with complaint of abdominal pain and vomiting which have been progressive over the past 2-3 days. She also reports loose watery bowel movements during this time period up to three times daily. She denies fever/chills, weight loss, rectal bleeding, recent travel, sick contacts, or antibiotic use. She has had multiple hospitalizations for similar complaints related to gastroparesis. Today she is seen ambulating in room, has not had any recurrent vomiting since arrival to hospital. Social history: smokes 1/2 PPD cigarettes, no ETOH use Family history: mother (lung cancer), brother (colon cancer diagnosed in age 40s ) Review of Systems - Review of Systems Review of Systems: - All other 12 point review of systems performed, negative - Cardiovascular Cardiovascular: absent: Acrocyanosis, Chest Pain, Chest Pain at Rest, Chest Pain with Activity, Claudication, Diaphoresis, Dyspnea, Dyspnea on Exertion, Edema, Irregular Heart Rhythm, Pain Radiating to Arm/Neck/Jaw, Leg Edema, Leg Ulcers, Lightheadedness, Orthopnea, Palpitations, Paroxysmal Nocturnal Dyspnea, Pedal Edema, Radiating Pain, Rapid Heart Rate, Slow Heart Rate, Syncope, Other - Respiratory Respiratory: absent: Cough, Dyspnea, Hemoptysis, Dyspnea on Exertion, Wheezing, Snoring, Stridor, Pain on Inspiration, Chest Congestion, Excessive Mucous Production, Change in Mucous Color, Pain with Coughing, Other - Gastrointestinal Gastrointestinal: Abdominal Pain, Loose Stools - Musculoskeletal Musculoskeletal: absent: Abnormal Gait, Arthralgias, Atrophy, Back Pain, Deformity, Joint Swelling, Limited Range of Motion, Loss of Height, Muscle Cramps, Muscle Weakness, Myalgias, Neck Pain, Numbness, Radiating Pain into Limb , Stiffness, Tingling, Other - Neurological Neurological: absent: Abnormal Gait, Abnormal Hearing, Abnormal Movements, Abnormal Speech, Behavioral Changes, Burning Sensations, Confusion, Convulsions , Disequilibrium, Dizziness, Numbness, Focal Weakness, Frequent Falls, Headaches , Lack of Coordination, Loss of Vision, Memory Loss, Paresthesias, Radicular Pain, Restless Legs, Sensory Deficit, Syncope, Tingling, Tremor, Vertigo, Weakness, Other Visual Disturbances, Other Past Patient History - Infectious Disease Hx of Infectious Diseases: None - Tetanus Immunizations Tetanus Immunization: Unknown - Past Social History Smoking Status: Heavy Smoker > 10 Cigarettes Daily - CARDIAC Hx Cardiac Disorders: Yes Hx Hypertension: Yes - PULMONARY Hx Chronic Obstructive Pulmonary Disease (COPD): Yes - NEUROLOGICAL Hx Neurological Disorder: No - HEENT Hx HEENT Problems: No - RENAL Hx Chronic Kidney Disease: No - ENDOCRINE/METABOLIC Hx Diabetes Mellitus Type 2: Yes - HEMATOLOGICAL/ONCOLOGICAL Other/Comment: colon ca - INTEGUMENTARY Hx Dermatological Problems: No - MUSCULOSKELETAL/RHEUMATOLOGICAL Hx Musculoskeletal Disorders: Yes Hx Falls: Yes - GASTROINTESTINAL Hx Gastrointestinal Disorders: Yes Hx Gastroesophageal Reflux: Yes Other/Comment: colon ca with surgery - GENITOURINARY/GYNECOLOGICAL Hx Genitourinary Disorders: Yes Hx Urinary Tract Infection: Yes - PSYCHIATRIC Hx Psychophysiologic Disorder: No Hx Substance Use: No (use treatment) - SURGICAL HISTORY Other/Comment: CA Colon - whipple,CESEREAN X 1 - ANESTHESIA Hx Anesthesia: No Hx Anesthesia Reactions: No Hx Malignant Hyperthermia: No Meds Allergies/Adverse Reactions: Allergies Allergy/AdvReac Type Severity Reaction Status Date / Time acetaminophen Allergy RASH Verified 07/17/17 05:29 codeine Allergy RASH Verified 07/17/17 05:29 iodine Allergy RASH Verified 07/17/17 05:29 - Medications Medications: Current Medications Atorvastatin Calcium (Lipitor) 10 mg PO DIN [facility] Last Admin: 07/17/17 21:42 Dose: 10 mg Metronidazole (Flagyl) 500 mg in 100 mls @ 100 mls/hr IVPB Q8 NADYA PRN Reason: Protocol Last Admin: 07/18/17 06:29 Dose: 100 mls/hr Sodium Chloride (Sodium Chloride 0.45%) 1,000 mls @ 40 mls/hr IV .Q24H NADYA Last Admin: 07/17/17 12:45 Dose: 40 mls/hr Cefepime HCl (Maxipime 1gm) 1 gm in 100 mls @ 100 mls/hr IVPB Q8 NADYA PRN Reason: Protocol Stop: 07/26/17 14:01 Last Admin: 07/18/17 05:32 Dose: 100 mls/hr Ibuprofen (Motrin Tab) 400 mg PO Q6H PRN PRN Reason: Pain, moderate (4-7) Last Admin: 07/18/17 03:39 Dose: 400 mg Insulin Human Regular (Humulin R High) 0 units SC ACHS [facility] PRN Reason: Protocol Last Admin: 07/17/17 21:40 Dose: Not Given Lisinopril (Zestril) 5 mg PO DAILY [facility] Metoclopramide HCl (Reglan) 10 mg PO ACHS [facility] Last Admin: 07/18/17 06:30 Dose: 10 mg Metaxalone [Skelaxin (] 800 Mg (Home Med)) 800 mg PO QID [facility] Last Admin: 07/17/17 21:08 Dose: Not Given Ondansetron HCl (Zofran Inj) 4 mg IVP Q6H PRN PRN Reason: Nausea/Vomiting Last Admin: 07/17/17 12:59 Dose: 4 mg Oxycodone HCl (Oxycontin Extended Release Tab) 80 mg PO Q12 [facility] Last Admin: 07/17/17 21:08 Dose: 80 mg Pantoprazole Sodium (Protonix Inj) 40 mg IVP 0600 [facility] Last Admin: 07/18/17 06:30 Dose: 40 mg Potassium Chloride (K-Dur 20 Meq Er Tab) 10 meq PO DAILY [facility] Pregabalin (Lyrica) 100 mg PO TID [facility] Last Admin: 07/17/17 18:56 Dose: 100 mg Sitagliptin Phosphate (Januvia) 50 mg PO DAILY [facility] Physical Exam - Constitutional Appears: Non-toxic, No Acute Distress - Head Exam Head Exam: NORMAL INSPECTION - Eye Exam Eye Exam: EOMI, Normal appearance - ENT Exam ENT Exam: Mucous Membranes Moist Additional comments: poor dentition, several missing teeth - Respiratory Exam Respiratory Exam: Clear to Auscultation Bilateral - Cardiovascular Exam Cardiovascular Exam: REGULAR RHYTHM, +S1, +S2 - GI/Abdominal Exam GI & Abdominal Exam: Normal Bowel Sounds, Soft Additional comments: obese, non-tender to palpation in four quadrants midline surgical scar present no palpable hepato/splenomegaly - Extremities Exam Extremities exam: Positive for: normal inspection - Neurological Exam Neurological exam: Alert, CN II-XII Intact, Normal Gait, Oriented x3, Reflexes Normal - Psychiatric Exam Psychiatric exam: Normal Affect, Normal Mood - Skin Skin Exam: Dry, Intact, Normal Color, Warm Results - Vital Signs Recent Vital Signs: Last Vital Signs Temp 98.1 F 07/18/17 07:00 Pulse 45 L 07/18/17 07:00 Resp 20 07/18/17 07:00 BP 128/80 07/18/17 07:00 Pulse Ox 100 07/18/17 07:00 - Labs Result Diagrams: 07/18/17 06:00 07/18/17 06:00 Labs: Laboratory Results - last 24 hr 07/17/17 07/17/17 07/18/17 15:52 21:23 06:00 WBC 4.8 RBC 3.99 Hgb 10.9 L D Hct 32.4 L MCV 81.2 MCH 27.3 MCHC 33.6 RDW 13.7 Plt Count 189 MPV 9.5 Sodium Potassium Chloride Carbon Dioxide Anion Gap BUN Creatinine Est GFR ( Amer) Est GFR (Non-Af Amer) POC Glucose (mg/dL) 265 H 224 H Random Glucose Calcium Total Bilirubin AST ALT Alkaline Phosphatase Total Protein Albumin Globulin Albumin/Globulin Ratio Triglycerides Cholesterol LDL Cholesterol Direct HDL Cholesterol TSH 3rd Generation 07/18/17 07/18/17 07/18/17 06:00 06:00 07:29 WBC RBC Hgb Hct MCV MCH MCHC RDW Plt Count MPV Sodium 136 Potassium 3.9 Chloride 106 Carbon Dioxide 20 L Anion Gap 14 BUN 11 Creatinine 0.5 Est GFR ( Amer) > 60 Est GFR (Non-Af Amer) > 60 POC Glucose (mg/dL) 330 H Random Glucose 301 H* Calcium 8.2 L Total Bilirubin 0.5 AST 22 ALT 29 Alkaline Phosphatase 72 Total Protein 5.1 L Albumin 2.8 L Globulin 2.3 Albumin/Globulin Ratio 1.2 Triglycerides 172 H Cholesterol 168 LDL Cholesterol Direct 121 HDL Cholesterol 32 TSH 3rd Generation 1.01 Assessment & Plan - Assessment and Plan (Free Text) Assessment: DM, uncontrolled Obesity History of pancreatic/colon cancers s/p whipple and subtotal colectomy Nausea, vomiting - possibly related to gastroparesis Abdominal pain, CT imaging reviewed by me showing mild mural thickening of rectum, though clinically not impressive Plan: - Full liquid diabetic diet, advance slowly as tolerated - Obtain stool studies (culture, c-difficile) - Anti-emetic therapy PRN - Patient requires strict blood glucose control - No clinical indication for antibiotic therapy, would discontinue (patient has no leukocytosis, fever, no significant abnormalities on urinalysis, and cultures negative). - Suggest reduction in use of narcotic pain medication as this may worsen existing patient condition - Will continue to monitor patient clinical course
[2017-07-18] MEDS: oxyCODONE 80 mg ER Tab (oxyCONTIN) PO SCH (09:33)
[2017-07-18] MEDS ORDERED: Potassium Chloride 20 mEq ER Tab PO SCH (10:00)
--- NOTE | 2017-07-18 12:48 | PN ---
DATE: 07/18/2017 LOCATION: The patient is in room #568, bed #1. REASON FOR CONSULTATION: Followup bradycardia, abdominal pain, hypertension, diabetes. SUBJECTIVE: The patient denies any chest pain, shortness of breath, palpitation, dizziness or syncope. The patient walking around in the floor and pulse while she is walking around is 73 per minute. PHYSICAL EXAMINATION: VITAL SIGNS: Blood pressure 128/80. Respirations 20. Pulse right now while the patient walking is 73 per minute; when the patient resting, heart rate had been recorded as 45 per minute. Temperature 98.1. HEENT: Head is normocephalic. Eyes, pupils normal. Conjunctivae normal. Nose and throat normal. NECK: JVP low. Carotid equal. LUNGS: Clear. CARDIOVASCULAR: S1 and S2. ABDOMEN: Soft. Bowel sounds normal. EXTREMITIES: No clubbing. No cyanosis. LABORATORY DATA: WBC 4.8, hemoglobin 10.9, hematocrit 32.4, platelets 189. Sodium 136, potassium 3.9, BUN 11, creatinine 0.5, random glucose 301. TSH 1.01. AST and ALT normal. Total protein 5.1. Albumin 2.8. DIAGNOSES: Bradycardia, asymptomatic, longstanding history of bradycardia; hypertension; diabetes; hyperlipidemia; abdominal pain; hip pain. PLAN: The patient's TSH is 1.01, normal. Random sugar 321. The patient on IV fluids, Lipitor 10 daily, Januvia, metronidazole IV, Lyrica 100 mg t.i.d. From tomorrow, Dr. Jose will follow. Steve Dinero MD
--- NOTE | 2017-07-18 14:07 | PN ---
DATE: 07/18/2017 SUBJECTIVE: The patient is in bed, in no acute distress, and nontoxic. PHYSICAL EXAMINATION: VITAL SIGNS: Temperature is 98, blood pressures is 106/50, and respiratory rate of 20. HEENT: Unremarkable. NECK: Supple. LUNGS: Decreased breath sounds. HEART: Normal S1 and S2. ABDOMEN: Soft and nontender. LABORATORY DATA: Reveals a white count of 4.8 and hemoglobin of 10.9. The patient does have 39% lymphocytosis and random glucose is noted. Microbiology is reviewed. Dr. Rincon, farm service consultant consultation is appreciated and he feels the vomiting was secondary to gastroparesis. ASSESSMENT AND PLAN: This is a 51-year-old female with obesity with a body mass index of 33, history of colon cancer, status post Whipple's procedure, which was done at [facility], also history of high cholesterol, diabetes, hypertension, and urinary tract infection who was admitted now with abdominal pain with no fevers and questionable colitis. All laboratory is normal. Case discussed with Dr. Mcclendon, farm service consultant feels it is all secondary to gastroparesis and we will check on the human immunodeficiency virus and the stool cultures and stool Clostridium difficile. We will discontinue the antibiotics, cefepime and Flagyl as the patient is improved. We will follow the patient off of antibiotics, check on the cultures and the human immunodeficiency virus test. We will follow closely with you. Case discussed with Dr. Mayur Mcclendon. Parag Jackson MD
--- NOTE | 2017-07-19 08:20 | DS ---
I discussed with GI and ID that she can be discharge. She is doing much better today. She is walking around. She is in good spirits. No more abdominal pain. No nausea or vomiting and she is hungry. My only issue is that her blood sugars are a little bit high, I put her back on metformin, although we are going to feed her. PHYSICAL EXAMINATION: VITAL SIGNS: She is a 98.1 temperature, 45 pulse, 128/80 blood pressure, 20 respiration rate, and 100% sat on room air. HEENT: Head is atraumatic, normocephalic. HEART: Regular rate. LUNGS: Clear to auscultation. ABDOMEN: Soft, positive bowel sounds. Nontender. Much better. No distention. No guarding. No rebound. EXTREMITIES: No edema. MEDICATIONS: She is currently on Flagyl, which I will stop, insulin coverage, Januvia, potassium, Lipitor, Lyrica, I am going to stop the Maxipime, so take the Skelaxin and Motrin, oxycodone from home, Protonix, Reglan, IV fluids, Zestril, and Zofran. LABORATORY DATA: She has 136 sodium, potassium 3.9, BUN 11, creatinine 0.5, GFR is greater than 60, sugar is 301, calcium is 8.2, total bilirubin 0.58, AST is 22, ALT 29, alkaline phosphatase 72, total protein 5.1, globulin 2.3, triglycerides 172, cholesterol 168, and thyroid 1.01. White count is 4.8, hemoglobin 10.9, hematocrit 32.4, and platelets 189. Urine is trace. She was seen by GI, infectious disease, and cardiology. We will stop the antibiotics as per ID, GI states can go home increase the diet and discharge later today. Blood sugar controlled better. We will put her back on oral medications and cardiology states ejection fraction 60%, normal left ventricular function, possible pulmonary, mild pulmonary hypertension grade 1. We will continue with aggressive treatment and care as an outpatient be discharged later today. She has colitis, abdominal pain, hypertension, diabetes and bradycardia; I changed her to an observational status. Mayur Mcclendon DO [facility] # [id number]
== END 2017-07-18 14:39 | disposition home or self-care (01) ==
LOC: ED 05:24 → ERH 09:46 → INTOOBSV 09:46 → ERH 10:29 → 5RNO 11:50 → OBSVTOIN 07-18 09:29 → INTOOBSV 07-18 09:29
PROVIDERS: ADMIT Family Medicine; ATTEND Family Medicine
DX: K52.9 Noninfective gastroenteritis and colitis, unspecified (principal); I10 Essential (primary) hypertension; R00.1 Bradycardia, unspecified; J44.9 Chronic obstructive pulmonary disease, unspecified; E78.00 Pure hypercholesterolemia, unspecified; K21.9 Gastro-esophageal reflux disease without esophagitis; E11.65 Type 2 diabetes mellitus with hyperglycemia; E11.43 Type 2 diabetes mellitus with diabetic autonomic (poly)neuropathy; K31.84 Gastroparesis; E66.9 Obesity, unspecified; Z68.34 Body mass index [BMI] 34.0-34.9, adult; M54.5 Low back pain; G89.29 Other chronic pain; Z79.891 Long term (current) use of opiate analgesic; F17.210 Nicotine dependence, cigarettes, uncomplicated; Z90.411 Acquired partial absence of pancreas; Z85.038 Personal history of other malignant neoplasm of large intestine; Z87.440 Personal history of urinary (tract) infections; Z90.49 Acquired absence of other specified parts of digestive tract; Z98.51 Tubal ligation status
CPT/HCPCS: 36415; 74177; 80053; 80061; 81001; 82150; 82948; 83690; 84443; 85025; 85027; 87086; 93005; 96361; 96365; 96375; 99285; C9113; G0378; J0692; J0696; J1885; J2270; J2405; J7030; J7040; Q9967

== ENCOUNTER 2017-07-19 04:35 | Observation (INO) | payer BC, OTHER ==
[2017-07-19 04:46] VITALS: BMI 34.7
[2017-07-19] MEDS ORDERED: Sodium Chloride 0.9% 1,000 ML IV STA (05:08)
[2017-07-19] MEDS ORDERED: HYDROmorphone 1 mg/ml ISec IVP STA (05:08)
--- NOTE | 2017-07-19 05:09 | ED PDOC ---
Arrival/HPI - General Chief Complaint: Abdominal Pain Time Seen by Provider: 07/19/17 05:00 Historian: Patient - History of Present Illness Narrative History of Present Illness (Text): 07/19/17 05:07 Marizol Parker is a 51 year old female, whose past medical history includes diabetes, hypertension, hyperlipidemia, COPD, and colon cancer s/p Whipple procedure, who presents to the ED complaining of abdominal pain. Patient states she was admitted to the hospital 2 days ago for similar presentation and was discharged yesterday. Patient states left-sided abdominal pain and flank pain returned yesterday at 17:00. Patient states she has been taking Oxycontin at home but denies any relief. Patient denies any nausea, vomiting, diarrhea, urinary symptoms, headache, dizziness, or any other complaints. Time/Duration: Other (yesterday) Symptom Onset: Gradual Symptom Course: Unchanged Activities at Onset: Light Context: Home Past Medical History - Provider Review Nursing Documentation Reviewed: Yes - Infectious Disease Hx of Infectious Diseases: None - Tetanus Immunization Tetanus Immunization: Unknown - Cardiac Hx Cardiac Disorders: Yes Hx Hypertension: Yes - Pulmonary Hx Chronic Obstructive Pulmonary Disease (COPD): Yes - Neurological Hx Neurological Disorder: No - HEENT Hx HEENT Disorder: No - Renal Hx Renal Disorder: No - Endocrine/Metabolic Hx Diabetes Mellitus Type 2: Yes - Hematological/Oncological Other/Comment: colon ca - Integumentary Hx Dermatological Disorder: No - Musculoskeletal/Rheumatological Hx Musculoskeletal Disorders: Yes Hx Falls: Yes - Gastrointestinal Hx Gastrointestinal Disorders: Yes Hx Gastroesophageal Reflux: Yes Other/Comment: colon ca with surgery - Genitourinary/Gynecological Hx Genitourinary Disorders: Yes Hx Urinary Tract Infection: Yes - Psychiatric Hx Psychophysiologic Disorder: No Hx Substance Use: No (use treatment) - Surgical History Other/Comment: CA Colon - whipple,CESEREAN X 1 - Anesthesia Hx Anesthesia: No Hx Anesthesia Reactions: No Hx Malignant Hyperthermia: No - Suicidal Assessment Feels Threatened In Home Enviroment: No Family/Social History - Physician Review Nursing Documentation Reviewed: Yes Family/Social History: Unknown Family HX Smoking Status: Heavy Smoker > 10 Cigarettes Daily Hx Alcohol Use: No Hx Substance Use: No (use treatment) Hx Substance Use Treatment: Yes Allergies/Home Meds Allergies/Adverse Reactions: Allergies acetaminophen Allergy (Verified 07/17/17 05:29) RASH codeine Allergy (Verified 07/17/17 05:29) RASH iodine Allergy (Verified 07/17/17 05:29) RASH Home Medications: Home Meds Medication Instructions Recorded Confirmed Enalapril Maleate 5 mg PO DAILY 05/21/14 07/19/17 Metformin HCl 1,000 mg PO BID 05/21/14 07/19/17 Oxycodone HCl/Acetaminophen 1 tab PO Q8 PRN 04/27/16 07/19/17 [Percocet 5-325 mg Tablet] Hydroxyzine Pamoate 100 mg PO DAILY 02/06/17 07/19/17 Metaxalone [Skelaxin] 800 mg PO QID 02/06/17 07/19/17 Omeprazole 20 mg PO DAILY 02/06/17 07/19/17 Oxycodone HCl [Oxycodone HCl ER] 160 mg PO Q12H 02/06/17 07/19/17 Simvastatin 20 mg PO DAILY 02/06/17 07/19/17 Pregabalin [Lyrica] 100 mg PO TID 07/17/17 07/19/17 Review of Systems - Physician Review All systems were reviewed & negative as marked: Yes - Review of Systems Constitutional: Normal. absent: Fevers Eyes: Normal ENT: Normal Respiratory: Normal. absent: SOB, Cough Cardiovascular: Normal. absent: Chest Pain Gastrointestinal: Abdominal Pain. absent: Diarrhea, Nausea, Vomiting Genitourinary Female: Normal. absent: Dysuria, Frequency, Hematuria, Urine Output Changes Musculoskeletal: Back Pain. absent: Neck Pain Skin: Normal. absent: Rash Neurological: Normal. absent: Headache, Dizziness Endocrine: Normal Hemo/Lymphatic: Normal Psychiatric: Normal Physical Exam Vital Signs Reviewed: Yes Vital Signs Temp Pulse Resp BP Pulse Ox 07/19/17 08:05 98.5 F 50 L 18 152/83 H 98 07/19/17 04:46 98.6 F 78 18 146/84 99 Temperature: Afebrile Blood Pressure: Normal Pulse: Regular Respiratory Rate: Normal Appearance: Positive for: Well-Appearing, Non-Toxic, Comfortable Pain Distress: None Mental Status: Positive for: Alert and Oriented X 3 - Systems Exam Head: Present: Atraumatic, Normocephalic Pupils: Present: PERRL Extroacular Muscles: Present: EOMI Conjunctiva: Present: Normal Mouth: Present: Moist Mucous Membranes Neck: Present: Normal Range of Motion Respiratory/Chest: Present: Clear to Auscultation, Good Air Exchange. No: Respiratory Distress, Accessory Muscle Use Cardiovascular: Present: Regular Rate and Rhythm, Normal S1, S2. No: Murmurs Abdomen: Present: Normal Bowel Sounds. No: Tenderness, Distention, Peritoneal Signs Back: Present: Normal Inspection Upper Extremity: Present: Normal Inspection. No: Cyanosis, Edema Lower Extremity: Present: Normal Inspection. No: Edema Neurological: Present: GCS=15, CN II-XII Intact, Speech Normal Skin: Present: Warm, Dry, Normal Color. No: Rashes Psychiatric: Present: Alert, Oriented x 3, Normal Insight, Normal Concentration Medical Decision Making ED Course and Treatment: 07/19/17 05:07 Impression: 51 year old female c/o left-sided abdominal pain/flank pain since 17:00 yesterday. Plan: -- Labs, lipase -- Urinalysis -- IV fluids -- Zofran -- Dilaudid -- Reassess and disposition Progress Notes: 07/19/17 06:45 Case was discussed with covering for PMD .Accepts to his service for further management of chronic persistent intractable abdominal pain. - Lab Interpretations Lab Results: 07/19/17 05:22 07/19/17 05:22 Lab Results 07/19/17 05:33: Urine Color Yellow, Urine Appearance Clear, Urine pH 6.0, Ur Specific [place] 1.025, Urine Protein Trace H, Urine Glucose (UA) >=1000, Urine Ketones 40 H, Urine Blood Negative, Urine Nitrate Negative, Urine Bilirubin Small H, Urine Urobilinogen 0.2, Ur Leukocyte Esterase Negative, Urine RBC 0 - 2 , Urine WBC 0 - 2, Ur Epithelial Cells 4 - 5 07/19/17 05:22: Sodium 139, Potassium 3.5 L, Chloride 104, Carbon Dioxide 26, Anion Gap 13, BUN 12, Creatinine 0.7, Est GFR ( Amer) > 60, Est GFR (Non- Af Amer) > 60, Random Glucose 295 H, Calcium 8.5, Total Bilirubin 0.5, AST 23, ALT 34, Alkaline Phosphatase 90, Total Protein 5.7 L, Albumin 3.1, Globulin 2.6 , Albumin/Globulin Ratio 1.2, Lipase 57 07/19/17 05:22: WBC 4.8, RBC 4.43, Hgb 12.2, Hct 36.0, MCV 81.3, MCH 27.5, MCHC 33.9, RDW 13.7, Plt Count 217, MPV 9.1 - Medication Orders Current Medication Orders: Sodium Chloride (Sodium Chloride 0.45%) 1,000 mls @ 60 mls/hr IV .[id number] [facility] Last Admin: 07/19/17 08:57 Dose: 60 mls/hr eMAR Start Stop Document 07/19/17 08:57 (Rec: 07/19/17 08:57 [id number] Intravenous Solution Start Date 07/19/17 Start Time 08:57 Insulin Detemir (Levemir) 6 unit SC Q12H [facility] Insulin Human Lispro (Humalog Low) 0 units SC [facility] PRN Reason: Protocol Last Admin: 07/19/17 18:05 Dose: Not Given Non-Admin Reason: NPO Lisinopril (Zestril) 5 mg PO DAILY [facility] Last Admin: 07/19/17 09:38 Dose: 5 mg [facility] Pulse and Blood Pressure Document 07/19/17 09:38 Y (Rec: 07/19/17 09:39 [place] [id number]) Pulse Pulse Rate (60-90) 54 Blood Pressure Blood Pressure (100/60-150/90) 161/74 Metoclopramide HCl (Reglan) 10 mg PO [facility] Last Admin: 07/19/17 18:07 Dose: 10 mg Morphine Sulfate (Morphine) 2 mg IVP Q4H PRN PRN Reason: Pain, moderate (4-7) Last Admin: 07/19/17 10:52 Dose: 2 mg MAR Pain Assessment Document 07/19/17 10:52 Y (Rec: 07/19/17 10:54 [place] [id number]) Pain Reassessment Is this a pain reassessment? No Sleep Is patient sleeping during reassessment? No Presence of Pain Presence of Pain Yes Pain Scale Used Pain Scale Used Numeric Location Left, Right or Bilateral Left Pain Location Body Site Abdomen Description Description Radiating Intensity of Pain at present 10 Radiation Location to back IVP Administration Document 07/19/17 10:52 Y (Rec: 07/19/17 10:54 [place] [id number]) Charges for Administration # of IVP Administrations 1 Re-Assess: [facility] Pain Assessment Document 07/19/17 11:52 YJ (Rec: 07/19/17 18:47 [id number]) Pain Reassessment Is this a pain reassessment? Yes Sleep Is patient sleeping during reassessment? Yes Ondansetron HCl (Zofran Inj) 4 mg IVP Q4 PRN PRN Reason: Nausea/Vomiting Oxycodone HCl (Oxycontin Extended Release Tab) 80 mg PO Q8 PRN PRN Reason: Pain, severe (8-10) Last Admin: 07/19/17 14:19 Dose: 80 mg [facility] Pain Assessment Document 07/19/17 14:19 Y (Rec: 07/19/17 14:19 [place] [id number]) Pain Reassessment Is this a pain reassessment? No Sleep Is patient sleeping during reassessment? No Presence of Pain Presence of Pain Yes Pain Scale Used Pain Scale Used Numeric Location Left, Right or Bilateral Right Upper or Lower Lower Pain Location Body Site Abdomen Description Intensity of Pain at present 10 Re-Assess: [facility] Pain Assessment Document 07/19/17 14:49 YJ (Rec: 07/19/17 18:47 [id number]) Pain Reassessment Is this a pain reassessment? Yes Sleep Is patient sleeping during reassessment? Yes Pantoprazole Sodium (Protonix Inj) 40 mg IVP DAILY [facility] Last Admin: 07/19/17 09:40 Dose: 40 mg IVP Administration Document 07/19/17 09:40 Y (Rec: 07/19/17 09:40 [place] [id number]) Charges for Administration # of IVP Administrations 1 Polyethylene Glycol (Miralax) 17 gm PO BID [facility] Last Admin: 07/19/17 18:09 Dose: 17 gm Pregabalin (Lyrica) 100 mg PO TID [facility] Last Admin: 07/19/17 18:09 Dose: 100 mg Discontinued Medications Bisacodyl (Dulcolax) 5 mg PO ONCE ONE Stop: 07/19/17 08:55 Last Admin: 07/19/17 09:38 Dose: 5 mg Hydromorphone HCl (Dilaudid) 1 mg IVP STAT STA Stop: 07/19/17 05:09 Last Admin: 07/19/17 05:56 Dose: 1 mg MAR Pain Assessment Document 07/19/17 05:56 HERSON (Rec: 07/19/17 05:56 HERSON [id number]) Pain Reassessment Is this a pain reassessment? No IVP Administration Document 07/19/17 05:56 HERSON (Rec: 07/19/17 05:56 HERSON [id number]) Charges for Administration # of IVP Administrations 1 Sodium Chloride (Sodium Chloride 0.9%) 1,000 mls @ 999 mls/hr IV .Q1H1M STA Stop: 07/19/17 06:08 Last Admin: 07/19/17 05:56 Dose: 999 mls/hr eMAR Start Stop Document 07/19/17 05:56 HERSON (Rec: 07/19/17 05:57 [facility] [id number]) Intravenous Solution Start Date 07/19/17 Start Time 05:56 End Date 07/19/17 End time 06:56 Total Infusion Time 60 Insulin Human Regular (Humulin R High) 0 units SC [facility] PRN Reason: Protocol Last Admin: 07/19/17 12:30 Dose: Not Given Non-Admin Reason: NPO Mineral Oil (Fleet Mineral Oil Enema) 135 ml RC ONCE ONE Stop: 07/19/17 08:55 Last Admin: 07/19/17 09:39 Dose: 135 ml Ondansetron HCl (Zofran Inj) 4 mg IVP ONCE ONE Stop: 07/19/17 05:09 Last Admin: 07/19/17 05:56 Dose: 4 mg IVP Administration Document 07/19/17 05:56 HERSON (Rec: 07/19/17 05:56 HERSON [id number]) Charges for Administration # of IVP Administrations 1 Potassium Chloride (K-Dur 20 Meq Er Tab) 20 meq PO STAT STA Stop: 07/19/17 08:17 Last Admin: 07/19/17 08:56 Dose: 20 meq Sitagliptin Phosphate (Januvia) 50 mg PO DAILY [facility] Last Admin: 07/19/17 09:40 Dose: Not Given Non-Admin Reason: NPO - Scribe Statement The provider has reviewed the documentation as recorded by the Scribe Stormy Minor All medical record entries made by the Scribe were at my direction and personally dictated by me. I have reviewed the chart and agree that the record accurately reflects my personal performance of the history, physical exam, medical decision making, and the department course for this patient. I have also personally directed, reviewed, and agree with the discharge instructions and disposition. Disposition/Present on Arrival - Present on Arrival Any Indicators Present on Arrival: No History of DVT/PE: No History of Uncontrolled Diabetes: No Urinary Catheter: No History of Decub. Ulcer: No History Surgical Site Infection Following: None - Disposition Have Diagnosis and Disposition been Completed?: Yes Diagnosis: Intractable abdominal pain Disposition: HOSPITALIZED Disposition Time: 07:01 Patient Plan: Observation Patient Problems: Current Active Problems Problem Status Onset Intractable abdominal pain Acute Condition: STABLE
[2017-07-19 05:40] LABS: MEAN CELL VOLUME 81.3 fl (80.0-105.0); MEAN CORPUSCULAR HEMOGLOBIN 27.5 pg (25.0-35.0); MEAN CORPUSCULAR HGB CONC 33.9 g/dl (31.0-37.0); MEAN PLATELET VOLUME 9.1 fl (7.0-11.0); RED CELL DISTRIBUTION WIDTH 13.7 % (11.5-14.5); WHITE BLOOD COUNT 4.8 10^3/ul (4.5-11.0)
[2017-07-19 06:00] LABS: URINE BILIRUBIN SMALL (NEGATIVE); URINE BLOOD NEGATIVE (NEGATIVE); URINE GLUCOSE (UA) >=1000 mg/dL (NEGATIVE); URINE KETONE 40 mg/dL (NEGATIVE); URINE LEUKOCYTE ESTERASE NEGATIVE Leu/uL (NEGATIVE); URINE PROTEIN TRACE mg/dL (<30 mg/dL); URINE UROBILINOGEN 0.2 E.U./dL (<1 E.U./dL)
[2017-07-19 06:06] LABS: URINE APPEARANCE CLEAR (CLEAR); URINE COLOR YELLOW (YELLOW)
[2017-07-19 06:08] LABS: ALB/GLOB RATIO 1.2 (1.1-1.8); ALKALINE PHOSPHATASE 90 U/L (38-126); ALT/SGPT 34 U/L (7-56); AST/SGOT 23 U/L (14-36); BILIRUBIN,TOTAL 0.5 mg/dL (0.2-1.3); BLOOD UREA NITROGEN 12 mg/dL (7-21); CALCIUM 8.5 mg/dL (8.4-10.5); CARBON DIOXIDE 26 mmol/L (21-33); CHLORIDE 104 mmol/L (95-110); GFR AFRICAN-AMERICAN > 60; GLUCOSE,RANDOM 295 mg/dL (70-110); LIPASE 57 U/L (23-300); POTASSIUM 3.5 mmol/L (3.6-5.0); SODIUM 139 mmol/L (132-148); TOTAL PROTEIN 5.7 g/dL (5.8-8.3)
[2017-07-19 06:11] LABS: URINE RBC 0 - 2 /hpf (0-2); URINE WBC 0 - 2 /hpf (0-6)
[2017-07-19] MEDS ORDERED: Potassium Chloride 20 mEq ER Tab PO STA (08:16)
[2017-07-19] MEDS ORDERED: Bisacodyl 5mg EC Tab PO ONE (08:54)
[2017-07-19] MEDS ORDERED: Mineral Oil Enema 135 ml RC ONE (08:54)
[2017-07-19] MEDS: Sodium Chloride 0.45% 1,000 ML IV SCH (08:57)
[2017-07-19] MEDS: POLYETHYLENE GLYCOL 3350 17 GM/Dose PACKET PO SCH ×2 (09:38→18:09)
[2017-07-19] MEDS: Morphine 2 mg/ml ISec IVP PRN (10:52)
[2017-07-19] MEDS ORDERED: Insulin Reg-HIGH-Coverage SC SCH (11:30)
--- NOTE | 2017-07-19 12:42 | HP ---
HISTORY OF PRESENT ILLNESS: I know Marizol very well from the office and also she discussed discharge from the hospital yesterday. She was on observation for abdominal pain, it is only 10 hours and came back in the middle of night, last night with abdominal pain. She was not feeling well. She had left sided abdominal pain, and flank pain. She was taking OxyContin from a pain management doctor and again measurable. PAST MEDICAL HISTORY: Diabetes, hypertension, high cholesterol, COPD, colon cancer with Whipple's procedure, COPD, history of falls, gastroesophageal reflux, colon resection for the cancer, also had a besides the Whipple for colon cancer. FAMILY HISTORY: None known family history. SOCIAL HISTORY: She still smokes and no alcohol. No drugs. ALLERGIES: ALLERGIES TO ACETAMINOPHEN, CODEINE, AND IODINE. MEDICATIONS: She takes enalapril, metformin, Percocet, hydroxizine, Skelaxin, omeprazole, oxycodone, simvastatin and Lyrica. REVIEW OF SYSTEMS: No acute vision changes or hearing changes. No sore throat. No chest pain or palpitation. No shortness of breath. No coughing. No mucus. There is abdominal pain. No diarrhea, nausea or vomiting, it is to the left side, it is crampy and it is severe, reported back to the emergency room. The skin for the most part is intact. No rashes or ulcers. No headaches or dizziness. No swelling. No anxiety or depression. PHYSICAL EXAMINATION: VITAL SIGNS: She has a 98.6 temperature, 70 pulse, 18 respiratory, 146/84 blood pressure, and 99% O2 saturation on room air. GENERAL: She is well appearing, nontoxic, comfortable. Alert and oriented x3. HEENT: Head is atraumatic, normocephalic. Pupils are equal, round, reactive to light. Extraocular muscles are intact. Throat is moist. NECK: Supple. HEART: Regular rate. Normal S1 and S2. LUNGS: Decreased breath sounds. Clear to auscultation. ABDOMEN: Normal bowel sounds. Mildly distended. No guarding. No rebound. Mild tenderness or palpable masses. No CVA tenderness. EXTREMITIES: No edema. NEUROLOGIC: GCS is 15. Cranial nerves II through XII grossly intact. Speech is normal. Alert and oriented x3. SKIN: Warm and dry. No rashes appreciated. Thyroid midline. No palpable lymphadenopathy appreciated. LABORATORY DATA: She had multiple labs and x-rays. She has urine, which shows clear. She has 139 sodium, potassium 3.5, I will give her potassium. She has BUN 12, and creatinine 0.7. GFR is greater than 60. Sugars 295, I called fine arts instructor, I do not think the metformin is helping, we may have to stop the metformin, just keep her on something else, we will increase the Januvia. Calcium is 8.5, total bilirubin is 0.5, AST is 23, ALT is 34, alkaline phosphatase 90, total protein 5.7, albumin is 3.1, globulin 2.6, and lipase is 57. White count is 4.8, hemoglobin 12.2, hematocrit 36, and platelets are 217. We will wait and see what surgery and CHURCH ADMINISTRATOR have to say. She was placed on n.p.o, IV fluids, morphine for pain on her p.o. medications, watching her blood sugar with the coverage, endocrinology consult. Protonix, Zofran n.p.o., IV fluids and I will give her potassium. History of abdominal pain. She is in observation status, hopefully if she improves we can discharge her tomorrow. Marizol Parker is on observation. Mayur Mcclendon DO
[2017-07-19] MEDS: oxyCODONE 80 mg ER Tab (oxyCONTIN) PO PRN ×2 (14:19→21:59)
--- NOTE | 2017-07-19 15:13 | CP.PCM.CON ---
History of Present Illness - History of Present Illness History of Present Illness: PGY1 Note for Dr. Solorzano HPI: We are being consulted for abdominal pain. Patient is a 51 y/o Female who presents to the ER with abdominal pain that began on Wednesday at 5pm and has been constant until she came to the ER at 4am. The pain does not radiate and is sharp in nature. She denies any provocative or palliative factors. She was recently admitted on this past , was discharged from the ER that day. She came back the following day and was admitted and received IV antibiotics. She felt bed and was discharged. The pain today is similar to the pain she presented with on her prior admission. It is associated with nausea but not vomiting. She denies any dysuria or blood in urine. She has had diarrhea for two weeks. States she has about 2-3 episodes of diarrhea per day. Denies any overt odor. Denies blood in stool. PMH: * Hx of colon cancer * HTN * GERD * COPD * IDDM PSH: * Whipple in s * tubal ligation * Gluteal Abscess * Colon resection FH: * Mother, cancer, type unknown SH: * smokes 1ppd * denies drinking or illegal drug use * retired * 4 kids Meds: See DEC Allergies: * tylenol * codeine * iodine Review of Systems - Constitutional Constitutional: As Per HPI - EENT Eyes: As Per HPI Ears: As Per HPI Nose/Mouth/Throat: As Per HPI - Breasts Breasts: As Per HPI - Cardiovascular Cardiovascular: As Per HPI - Respiratory Respiratory: As Per HPI - Gastrointestinal Gastrointestinal: As Per HPI - Genitourinary Genitourinary: As Per HPI - Reproductive: Female Reproductive:Female: As Per HPI - Menstruation Menstruation: As Per HPI - Musculoskeletal Musculoskeletal: As Per HPI - Integumentary Integumentary: As Per HPI - Neurological Neurological: As Per HPI - Psychiatric Psychiatric: As Per HPI - Endocrine Endocrine: As Per HPI - Hematologic/Lymphatic Hematologic: As Per HPI Past Patient History - Infectious Disease Hx of Infectious Diseases: None - Tetanus Immunizations Tetanus Immunization: Unknown - Past Social History Smoking Status: Heavy Smoker > 10 Cigarettes Daily - CARDIAC Hx Cardiac Disorders: Yes Hx Hypertension: Yes - PULMONARY Hx Chronic Obstructive Pulmonary Disease (COPD): Yes - NEUROLOGICAL Hx Neurological Disorder: No - HEENT Hx HEENT Problems: No - RENAL Hx Chronic Kidney Disease: No - ENDOCRINE/METABOLIC Hx Diabetes Mellitus Type 2: Yes - HEMATOLOGICAL/ONCOLOGICAL Hx Blood Disorders: No Other/Comment: Colon Ca s/p Whipple - INTEGUMENTARY Hx Dermatological Problems: No - MUSCULOSKELETAL/RHEUMATOLOGICAL Hx Musculoskeletal Disorders: Yes Hx Falls: Yes - GASTROINTESTINAL Hx Gastrointestinal Disorders: Yes Hx Gastroesophageal Reflux: Yes Other/Comment: colon ca with surgery - GENITOURINARY/GYNECOLOGICAL Hx Genitourinary Disorders: Yes Hx Urinary Tract Infection: Yes - PSYCHIATRIC Hx Psychophysiologic Disorder: No Hx Substance Use: No - SURGICAL HISTORY Hx Surgeries: Yes Other/Comment: CA Colon - whipple, X 1 - ANESTHESIA Hx Anesthesia: No Hx Anesthesia Reactions: No Hx Malignant Hyperthermia: No Meds Allergies/Adverse Reactions: Allergies Allergy/AdvReac Type Severity Reaction Status Date / Time acetaminophen Allergy RASH Verified 07/17/17 05:29 codeine Allergy RASH Verified 07/17/17 05:29 iodine Allergy RASH Verified 07/17/17 05:29 - Medications Medications: Current Medications Sodium Chloride (Sodium Chloride 0.45%) 1,000 mls @ 60 mls/hr IV .[id number] [facility] Last Admin: 07/19/17 08:57 Dose: 60 mls/hr Insulin Detemir (Levemir) 6 unit SC Q12H [facility] Insulin Human Lispro (Humalog Low) 0 units SC [facility] PRN Reason: Protocol Lisinopril (Zestril) 5 mg PO DAILY [facility] Last Admin: 07/19/17 09:38 Dose: 5 mg Metoclopramide HCl (Reglan) 10 mg PO [facility] Last Admin: 07/19/17 12:32 Dose: 10 mg Morphine Sulfate (Morphine) 2 mg IVP Q4H PRN PRN Reason: Pain, moderate (4-7) Last Admin: 07/19/17 10:52 Dose: 2 mg Ondansetron HCl (Zofran Inj) 4 mg IVP Q4 PRN PRN Reason: Nausea/Vomiting Oxycodone HCl (Oxycontin Extended Release Tab) 80 mg PO Q8 PRN PRN Reason: Pain, severe (8-10) Last Admin: 07/19/17 14:19 Dose: 80 mg Pantoprazole Sodium (Protonix Inj) 40 mg IVP DAILY [facility] Last Admin: 07/19/17 09:40 Dose: 40 mg Polyethylene Glycol (Miralax) 17 gm PO BID [facility] Last Admin: 07/19/17 09:38 Dose: 17 gm Pregabalin (Lyrica) 100 mg PO TID [facility] Last Admin: 07/19/17 13:39 Dose: 100 mg Physical Exam - Constitutional Appears: Well - Head Exam Head Exam: ATRAUMATIC, NORMAL INSPECTION, NORMOCEPHALIC - Eye Exam Eye Exam: EOMI, PERRL - ENT Exam ENT Exam: Mucous Membranes Moist - Respiratory Exam Respiratory Exam: Clear to Auscultation Bilateral, NORMAL BREATHING PATTERN - Cardiovascular Exam Cardiovascular Exam: REGULAR RHYTHM - GI/Abdominal Exam GI & Abdominal Exam: Soft. absent: Distended, Normal Bowel Sounds, Tenderness - Extremities Exam Extremities exam: Negative for: joint swelling, tenderness - Back Exam Back exam: absent: CVA tenderness (L), CVA tenderness (R) - Neurological Exam Neurological exam: Alert, Oriented x3 - Psychiatric Exam Psychiatric exam: Normal Affect, Normal Mood - Skin Skin Exam: Dry, Intact, Normal Color, Warm Results - Vital Signs Recent Vital Signs: Last Vital Signs Temp 98.3 F 07/19/17 11:30 Pulse 54 L 07/19/17 11:30 Resp 18 07/19/17 11:30 BP 161/74 H 07/19/17 11:30 Pulse Ox 98 07/19/17 08:05 - Labs Result Diagrams: 07/19/17 05:22 07/19/17 05:22 Labs: Laboratory Results - last 24 hr 07/19/17 11:45 POC Glucose (mg/dL) 284 H Assessment & Plan - Assessment and Plan (Free Text) Assessment: 51 y/o with LLQ, L flank pain * No immediate surgical intervention at this time * NPO * Pain control: Morphine 2mg IV * IVF: 1/2 NS @ 60 * Serial abdominal exams * Monitor bowel function * Further management per medical team - Date & Time Date: 07/19/17 Time: 15:14
[2017-07-19] MEDS: Insulin Lispro (humaLOG) LOW Coverage SC SCH ×2 (18:05→21:47)
[2017-07-19] MEDS: Insulin Detemir 100 units/ml Vial (Levemir) SC SCH (21:47)
--- NOTE | 2017-07-19 22:43 | CON ---
ENDOCRINOLOGY CONSULT DATE: LOCATION: Room 561. HISTORY OF PRESENT ILLNESS: This is a 51-year-old female with known history of type 2 insulin requiring diabetes now presenting here with recurrent and worsening abdominal pain and is being referred now for diabetic evaluation because of persistent hyperglycemic accelerations as noted thereof. PAST MEDICAL HISTORY: As mentioned above. History of type 2 insulin requiring diabetes, currently on Lantus given 15 units at bedtime with Januvia given 50 mg once daily and metformin at 1000 mg b.i.d. History of hypertension and dyslipidemia. 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 History of colon cancer underwent colon resection and also some kind of Whipple's procedure in , the exact nature of the resection and biopsy reports are not known. FAMILY HISTORY: Positive for diabetes and hypertension. SOCIAL HISTORY: The patient admits to nicotine dependence and smokes a pack a day for many years now. No other known substance use. She has a supportive family and has 4 grown children. REVIEW OF SYSTEMS: As mentioned above. Admits to generalized body weakness with easy fatigability and tiredness and suboptimal energy level. Also admits to dizziness and lightheadedness, worse on the day of admission. No chest pains or palpitations or PND. Her oral intake is variable with nausea, dyspepsia, and vague upper abdominal pain with localized to left upper quadrant and left flank area. PHYSICAL EXAMINATION: GENERAL: This is an overweight female in no apparent distress. VITAL SIGNS: Blood pressure 150/90, pulse of 100 beats per minute and regular, temperature 98, respirations 20, height is 5 feet 4 inches, and weight is 204 pounds. HEENT: Head is normocephalic. Eyes; anicteric with pink conjunctivae. Funduscopy not possible at this time. Ears, nose and throat otherwise normal. NECK: Supple. Thyroid gland is normal in size. No carotid bruits or any cervical adenopathy. CARDIOPULMONARY: Adynamic precordium, S1 and S2 is rapid and regular. LUNGS: Clear to auscultation. ABDOMEN: There is positive direct tenderness in the left upper quadrant. No evidence of any rebound tenderness. Bowel sounds are present. EXTREMITIES: No peripheral edema. Pulses are +2 bilaterally. LABORATORY DATA: Chemistry showed a BUN of 12, sodium 139, potassium 3.5, chloride 104, CO2 is 26, glucose is 295, and creatinine 0.7. ASSESSMENT: This is a 51-year-old female with recurrent abdominal pain with worsening intensity and readmitted here today for further evaluation and management. She also uncontrolled type 2 insulin requiring diabetes with recent hyperglycemic accelerations as noted thereof. She also significant evidence of diabetic retinopathy and polyneuropathy as noted. PLAN OF MANAGEMENT: As discussed with the patient and staff. We will modify her low dose correction scale using Humalog insulin to obviate hypoglycemia and detailed orders have been given. We will also add basal insulin with Levemir given 6 units subcu every 12 hours at 10 a.m. and 10 p.m. daily to start tonight and we will given n.p.o. at this time. We will consider the addition of the basal and bolus insulin drug combination one for GI workup is completed and also one for her oral intake is advance as follow through . We will obtain serial chemistries and supplement accordingly as needed. We will also obtain serial cortisol and thyroid studies as ordered. We will follow with you. Adali Ferguson MD
[2017-07-20] MEDS: Morphine 2 mg/ml ISec IVP PRN ×3 (03:56→14:32)
[2017-07-20 07:37] VITALS: BP 144/79; PULSE 49; RESP 20; TEMP 98.6; O2SAT 97
[2017-07-20] MEDS ORDERED: Mineral Oil Enema 135 ml RC ONE (07:53)
[2017-07-20] MEDS ORDERED: Magnesium Citrate Oral SOL (300 ml) PO ONE (07:53)
--- NOTE | 2017-07-20 07:57 | CP.PCM.PN ---
Subjective - Date & Time of Evaluation Date of Evaluation: 07/20/17 Time of Evaluation: 07:54 - Subjective Subjective: PGY1 Note for Dr. Solorzano HPI: Patient seen and examined at bedside. Doing well. Abdominal pain still present. Complaining she is constipated. No other complaints at this time. -BM, +flatus. Denies N/V/D/SOB/CP/F/Chills Objective - Vital Signs/Intake and Output Vital Signs (last 24 hours): Temp Pulse Resp BP Pulse Ox 98.6 F 49 L 20 144/79 97 07/20/17 07:37 07/20/17 07:37 07/20/17 07:37 07/20/17 07:37 07/20/17 07:37 Intake and Output: 07/20/17 07/20/17 06:59 18:59 Intake Total 0 Balance 0 - Medications Medications: Current Medications Sodium Chloride (Sodium Chloride 0.45%) 1,000 mls @ 60 mls/hr IV .[id number] [facility] Last Admin: 07/19/17 08:57 Dose: 60 mls/hr Insulin Detemir (Levemir) 6 unit SC Q12H [facility] Last Admin: 07/19/17 21:47 Dose: Not Given Insulin Human Lispro (Humalog Low) 0 units SC ACHS [facility] PRN Reason: Protocol Last Admin: 07/19/17 21:47 Dose: Not Given Lisinopril (Zestril) 5 mg PO DAILY [facility] Last Admin: 07/19/17 09:38 Dose: 5 mg Metoclopramide HCl (Reglan) 10 mg PO ACHS [facility] Last Admin: 07/19/17 21:59 Dose: 10 mg Morphine Sulfate (Morphine) 2 mg IVP Q4H PRN PRN Reason: Pain, moderate (4-7) Last Admin: 07/20/17 03:56 Dose: 2 mg Ondansetron HCl (Zofran Inj) 4 mg IVP Q4 PRN PRN Reason: Nausea/Vomiting Oxycodone HCl (Oxycontin Extended Release Tab) 80 mg PO Q8 PRN PRN Reason: Pain, severe (8-10) Last Admin: 07/19/17 21:59 Dose: 80 mg Pantoprazole Sodium (Protonix Inj) 40 mg IVP DAILY [facility] Last Admin: 07/19/17 09:40 Dose: 40 mg Polyethylene Glycol (Miralax) 17 gm PO BID [facility] Last Admin: 07/19/17 18:09 Dose: 17 gm Pregabalin (Lyrica) 100 mg PO TID [facility] Last Admin: 07/19/17 18:09 Dose: 100 mg - Constitutional Appears: Non-toxic - Head Exam Head Exam: ATRAUMATIC, NORMAL INSPECTION, NORMOCEPHALIC - Eye Exam Eye Exam: EOMI Pupil Exam: NORMAL ACCOMODATION - ENT Exam ENT Exam: Mucous Membranes Moist - Neck Exam Neck Exam: Full ROM - Respiratory Exam Respiratory Exam: Clear to Ausculation Bilateral, NORMAL BREATHING PATTERN - GI/Abdominal Exam GI & Abdominal Exam: Soft, Normal Bowel Sounds. absent: Distended, Tenderness - Back Exam Back Exam: absent: CVA tenderness (L), CVA tenderness (R) - Neurological Exam Neurological Exam: Alert, Awake, Oriented x3 - Psychiatric Exam Psychiatric exam: Normal Affect, Normal Mood - Skin Skin Exam: Dry, Intact, Normal Color, Warm Assessment and Plan - Assessment and Plan (Free Text) Assessment: 51 y/o with LLQ, L flank pain * No immediate surgical intervention at this time * Liquid Diet * Pain control: Morphine 2mg IV * IVF: 1/2 NS @ 60 * Serial abdominal exams * Monitor bowel function * Fleet enema and Miralax * Further management per medical team
--- NOTE | 2017-07-20 08:02 | CP.PCM.CON ---
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 Patient states she developed severe, burning left sided abdominal pain the night of her discharge home. The pain is not similar to prior episodes of abdominal pain due to gastroparesis. She notes having watery stools twice a day for the last week prior to re-admission but no bowel movement during the two days of recent admission. Denies nausea, vomiting , bloating, indigestion, acid reflux, hematemesis, constipation, melena, hematochezia, fever, chills, sweats, recent travel, or sick contacts. Last EGD and colonoscopy 2007 at outside facility endorsed to be normal. Family-Mother and aunt-lung cancer, uncle-pancreatic cancer diagnosed over 60 years of age, brother- colon cancer- diagnosed before 50 years of age Social- 20 pack years, marijuana use(endorsed cessation since January 2017) denies alcohol use Surgery- Whipple's, subtotal colectomy, hernia repair, , gluteal abscess I&D february 2017 Review of Systems - Review of Systems Review of Systems: 12-point review of systems negative except for as above Past Patient History - Infectious Disease Hx of Infectious Diseases: None - Tetanus Immunizations Tetanus Immunization: Unknown - Past Social History Smoking Status: Heavy Smoker > 10 Cigarettes Daily - CARDIAC Hx Cardiac Disorders: Yes Hx Hypertension: Yes - PULMONARY Hx Chronic Obstructive Pulmonary Disease (COPD): Yes - NEUROLOGICAL Hx Neurological Disorder: No - HEENT Hx HEENT Problems: No - RENAL Hx Chronic Kidney Disease: No - ENDOCRINE/METABOLIC Hx Diabetes Mellitus Type 2: Yes - HEMATOLOGICAL/ONCOLOGICAL Other/Comment: colon ca - INTEGUMENTARY Hx Dermatological Problems: No - MUSCULOSKELETAL/RHEUMATOLOGICAL Hx Musculoskeletal Disorders: Yes Hx Falls: Yes - GASTROINTESTINAL Hx Gastrointestinal Disorders: Yes Hx Gastroesophageal Reflux: Yes Other/Comment: colon ca with surgery - GENITOURINARY/GYNECOLOGICAL Hx Genitourinary Disorders: Yes Hx Urinary Tract Infection: Yes - PSYCHIATRIC Hx Psychophysiologic Disorder: No Hx Substance Use: No (use treatment) - SURGICAL HISTORY Other/Comment: CA Colon - whipple,CESEREAN X 1 - ANESTHESIA Hx Anesthesia: No Hx Anesthesia Reactions: No Hx Malignant Hyperthermia: No Meds Allergies/Adverse Reactions: Allergies Allergy/AdvReac Type Severity Reaction Status Date / Time acetaminophen Allergy RASH Verified 07/17/17 05:29 codeine Allergy RASH Verified 07/17/17 05:29 iodine Allergy RASH Verified 07/17/17 05:29 - Medications Medications: Current Medications Sodium Chloride (Sodium Chloride 0.45%) 1,000 mls @ 60 mls/hr IV .[id number] [facility] Last Admin: 07/19/17 08:57 Dose: 60 mls/hr Insulin Detemir (Levemir) 6 unit SC Q12H [facility] Last Admin: 07/19/17 21:47 Dose: Not Given Insulin Human Lispro (Humalog Low) 0 units SC [facility] PRN Reason: Protocol Last Admin: 07/19/17 21:47 Dose: Not Given Lisinopril (Zestril) 5 mg PO DAILY [facility] Last Admin: 07/19/17 09:38 Dose: 5 mg Magnesium Citrate (Citrate Of Mag) 300 ml PO ONCE ONE Stop: 07/20/17 07:54 Metoclopramide HCl (Reglan) [address] [facility] Last Admin: 07/19/17 21:59 Dose: 10 mg Mineral Oil (Fleet Mineral Oil Enema) 135 ml RC ONCE ONE Stop: 07/20/17 07:54 Morphine Sulfate (Morphine) 2 mg IVP Q4H PRN PRN Reason: Pain, moderate (4-7) Last Admin: 07/20/17 03:56 Dose: 2 mg Ondansetron HCl (Zofran Inj) 4 mg IVP Q4 PRN PRN Reason: Nausea/Vomiting Oxycodone HCl (Oxycontin Extended Release Tab) 80 mg PO Q8 PRN PRN Reason: Pain, severe (8-10) Last Admin: 07/19/17 21:59 Dose: 80 mg Pantoprazole Sodium (Protonix Inj) 40 mg IVP DAILY [facility] Last Admin: 07/19/17 09:40 Dose: 40 mg Polyethylene Glycol (Miralax) 17 gm PO BID [facility] Last Admin: 07/19/17 18:09 Dose: 17 gm Pregabalin (Lyrica) 100 mg PO TID [facility] Last Admin: 07/19/17 18:09 Dose: 100 mg Physical Exam - Constitutional Appears: Non-toxic, No Acute Distress - Head Exam Head Exam: ATRAUMATIC, NORMOCEPHALIC - Eye Exam Eye Exam: EOMI, PERRL Pupil Exam: PERRL. absent: Miosis, Mydriatic - ENT Exam ENT Exam: Mucous Membranes Moist - Neck Exam Neck exam: Positive for: Full Rom, Normal Inspection - Respiratory Exam Respiratory Exam: Clear to Auscultation Bilateral. absent: Rales, Rhonchi, Wheezes - Cardiovascular Exam Cardiovascular Exam: RRR, +S1, +S2. absent: Gallop, Rubs - GI/Abdominal Exam GI & Abdominal Exam: Normal Bowel Sounds, Soft, Tenderness. absent: Distended, Firm, Guarding, Organomegaly, Rebound, Rigid Additional comments: left mid to lower abdomen tenderness to palpation, mild discomfort to palpation of right doris-abdomen - Rectal Exam Rectal Exam: Hemorrhoids. absent: Black Stool, Bloody Stool, Fecal Impaction Additional comments: no stool in rectal vault - Extremities Exam Extremities exam: Positive for: normal inspection. Negative for: pedal edema - Neurological Exam Neurological exam: Alert - Psychiatric Exam Psychiatric exam: Normal Affect, Normal Mood - Skin Skin Exam: Dry, Intact, Normal Color, Warm Results - Vital Signs Recent Vital Signs: Last Vital Signs Temp 98.6 F 07/20/17 07:37 Pulse 49 L 07/20/17 07:37 Resp 20 07/20/17 07:37 BP 144/79 07/20/17 07:37 Pulse Ox 97 07/20/17 07:37 - Labs Result Diagrams: 07/20/17 05:00 07/20/17 05:00 Labs: Laboratory Results - last 24 hr 07/19/17 07/19/17 07/19/17 11:45 14:45 16:32 POC Glucose (mg/dL) 284 H 206 H Urine Opiates Screen Positive H Urine Methadone Screen Negative Ur Barbiturates Screen Positive H Ur Phencyclidine Scrn Negative Ur Amphetamines Screen Negative U Benzodiazepines Scrn Negative U Oth Cocaine Metabols Negative U Cannabinoids Screen Negative 07/19/17 07/20/17 21:08 07:24 POC Glucose (mg/dL) 195 H 237 H Urine Opiates Screen Urine Methadone Screen Ur Barbiturates Screen Ur Phencyclidine Scrn Ur Amphetamines Screen U Benzodiazepines Scrn U Oth Cocaine Metabols U Cannabinoids Screen Assessment & Plan - Assessment and Plan (Free Text) Assessment: 51 year old female with history of chronic neck/back pain on oxycodone, Hypertension, asthma, colon cancer s/p subtotal colectomy 1989 (no chemoradiation), pancreatic cancer s/p Whipple's 1990, and uncontrolled Type 2 Diabetes complicated by retinopathy, polyneuropathy, and Gastroparesis presenting with abdominal pain. Active treatment of abdominal pain 2/2 opioid induced constipation with recent CT A/P 07/16 and 07/17 showing fecalization of bowel loops with rectal fecal stasis and associated mild distal colon/rectal thickening. Last EGD and colonoscopy 2007 at outside facility endorsed to be normal. Plan: >no fecal impaction on digital exam >07/19 small watery stool with Miralax BID, Dulcolax x1, mineral oil enema x1 >ordered Mg citrate x1, mineral oil enema x1 today >continue Miralax BID >increase water and fiber intake >trial clear liquid diet, advance as tolerated to low fat, diabetic, small, frequent meals >will benefit from elective EGD/colonoscopy with Dr. Ricketts as previously recommended <Gerber Mejia - Last Filed: 07/20/17 12:47> Meds - Medications Medications: Current Medications Sodium Chloride (Sodium Chloride 0.45%) 1,000 mls @ 60 mls/hr IV .[id number] [facility] Last Admin: 07/19/17 08:57 Dose: 60 mls/hr Insulin Detemir (Levemir) 6 unit SC Q12H [facility] Last Admin: 07/20/17 09:57 Dose: 6 unit Insulin Human Lispro (Humalog Low) 0 units SC [facility] PRN Reason: Protocol Last Admin: 07/20/17 11:27 Dose: Not Given Lisinopril (Zestril) 5 mg PO DAILY [facility] Last Admin: 07/20/17 09:57 Dose: 5 mg Metoclopramide HCl (Reglan) 10 mg PO [facility] Last Admin: 07/20/17 11:40 Dose: 10 mg Morphine Sulfate (Morphine) 2 mg IVP Q4H PRN PRN Reason: Pain, moderate (4-7) Last Admin: 07/20/17 08:17 Dose: 2 mg Ondansetron HCl (Zofran Inj) 4 mg IVP Q4 PRN PRN Reason: Nausea/Vomiting Oxycodone HCl (Oxycontin Extended Release Tab) 80 mg PO Q8 PRN PRN Reason: Pain, severe (8-10) Last Admin: 07/20/17 10:01 Dose: 80 mg Pantoprazole Sodium (Protonix Inj) 40 mg IVP DAILY [facility] Last Admin: 07/20/17 09:56 Dose: 40 mg Polyethylene Glycol (Miralax) 17 gm PO BID [facility] Last Admin: 07/20/17 09:56 Dose: 17 gm Pregabalin (Lyrica) 100 mg PO TID [facility] Last Admin: 07/20/17 09:57 Dose: 100 mg Sitagliptin Phosphate (Januvia) 100 mg PO DAILY [facility] Last Admin: 07/20/17 09:57 Dose: 100 mg Results - Vital Signs Recent Vital Signs: Last Vital Signs Temp 98.6 F 07/20/17 07:37 Pulse 49 L 07/20/17 07:37 Resp 20 07/20/17 07:37 BP 144/79 07/20/17 07:37 Pulse Ox 97 07/20/17 07:37 - Labs Result Diagrams: 07/20/17 05:00 07/20/17 05:00 Labs: Laboratory Results - last 24 hr 07/19/17 07/19/17 07/19/17 14:45 16:32 21:08 WBC RBC Hgb Hct MCV MCH MCHC RDW Plt Count MPV Sodium Potassium Chloride Carbon Dioxide Anion Gap BUN Creatinine Est GFR ( Amer) Est GFR (Non-Af Amer) POC Glucose (mg/dL) 206 H 195 H Random Glucose Hemoglobin A1c Calcium Total Bilirubin AST ALT Alkaline Phosphatase Total Protein Albumin Globulin Albumin/Globulin Ratio TSH 3rd Generation Urine Opiates Screen Positive H Urine Methadone Screen Negative Ur Barbiturates Screen Positive H Ur Phencyclidine Scrn Negative Ur Amphetamines Screen Negative U Benzodiazepines Scrn Negative U Oth Cocaine Metabols Negative U Cannabinoids Screen Negative 07/20/17 07/20/17 07/20/17 05:00 05:00 05:00 WBC 4.6 RBC 4.54 Hgb 12.5 Hct 36.6 MCV 80.6 MCH 27.5 MCHC 34.2 RDW 13.7 Plt Count 209 MPV 9.0 Sodium 138 Potassium 3.3 L Chloride 104 Carbon Dioxide 23 Anion Gap 14 BUN 7 Creatinine 0.6 Est GFR ( Amer) > 60 Est GFR (Non-Af Amer) > 60 POC Glucose (mg/dL) Random Glucose 208 H Hemoglobin A1c 12.8 H Calcium 8.5 Total Bilirubin 0.5 AST 18 ALT 35 Alkaline Phosphatase 92 Total Protein 5.9 Albumin 3.2 Globulin 2.6 Albumin/Globulin Ratio 1.2 TSH 3rd Generation Urine Opiates Screen Urine Methadone Screen Ur Barbiturates Screen Ur Phencyclidine Scrn Ur Amphetamines Screen U Benzodiazepines Scrn U Oth Cocaine Metabols U Cannabinoids Screen 07/20/17 07/20/17 07/20/17 05:00 07:24 11:26 WBC RBC Hgb Hct MCV MCH MCHC RDW Plt Count MPV Sodium Potassium Chloride Carbon Dioxide Anion Gap BUN Creatinine Est GFR ( Amer) Est GFR (Non-Af Amer) POC Glucose (mg/dL) 237 H 257 H Random Glucose Hemoglobin A1c Calcium Total Bilirubin AST ALT Alkaline Phosphatase Total Protein Albumin Globulin Albumin/Globulin Ratio TSH 3rd Generation 0.41 L Urine Opiates Screen Urine Methadone Screen Ur Barbiturates Screen Ur Phencyclidine Scrn Ur Amphetamines Screen U Benzodiazepines Scrn U Oth Cocaine Metabols U Cannabinoids Screen Attending/Attestation - Attestation I have personally seen and examined this patient.: Yes I have fully participated in the care of the patient.: Yes I have reviewed all pertinent clinical information: Yes Notes (Text): 07/20/17 12:45 51 year old female with history of chronic back pain on narcotics, HTN, CRC s/p partial colectomy, Panc ca s/p Whipple, DM, Gastroparesis, Constipation a/w abdominal pain and constipation. 1. Opiod induced constipation 2. Abdominal pain Plan: -recommend aggressive bowel regimen -advance diet as tolerated -ok to discharge from GI standpoint -follow up with her outpatient GI
[2017-07-20] MEDS: Insulin Lispro (humaLOG) LOW Coverage SC SCH ×3 (08:12→16:23)
[2017-07-20 08:33] LABS: HEMATOCRIT 36.6 % (36.0-48.0); MEAN CELL VOLUME 80.6 fl (80.0-105.0); MEAN CORPUSCULAR HEMOGLOBIN 27.5 pg (25.0-35.0); MEAN CORPUSCULAR HGB CONC 34.2 g/dl (31.0-37.0); RED CELL DISTRIBUTION WIDTH 13.7 % (11.5-14.5); WHITE BLOOD COUNT 4.6 10^3/ul (4.5-11.0)
[2017-07-20 08:50] LABS: ALB/GLOB RATIO 1.2 (1.1-1.8); ALKALINE PHOSPHATASE 92 U/L (38-126); ALT/SGPT 35 U/L (7-56); AST/SGOT 18 U/L (14-36); BILIRUBIN,TOTAL 0.5 mg/dL (0.2-1.3); BLOOD UREA NITROGEN 7 mg/dL (7-21); CALCIUM 8.5 mg/dL (8.4-10.5); CARBON DIOXIDE 23 mmol/L (21-33); CHLORIDE 104 mmol/L (95-110); GFR AFRICAN-AMERICAN > 60; GLUCOSE,RANDOM 208 mg/dL (70-110); POTASSIUM 3.3 mmol/L (3.6-5.0); SODIUM 138 mmol/L (132-148); TOTAL PROTEIN 5.9 g/dL (5.8-8.3)
[2017-07-20] MEDS ORDERED: Potassium Chloride 20 mEq ER Tab PO ONE (09:24)
[2017-07-20] MEDS: POLYETHYLENE GLYCOL 3350 17 GM/Dose PACKET PO SCH ×2 (09:56→17:01)
[2017-07-20] MEDS: Insulin Detemir 100 units/ml Vial (Levemir) SC SCH (09:57)
[2017-07-20] MEDS: oxyCODONE 80 mg ER Tab (oxyCONTIN) PO PRN (10:01)
--- NOTE | 2017-07-20 12:30 | DS ---
I saw her resting comfortably in bed, sitting up. She had her clears very well this morning. She is going to have Citrate of Magnesia and then increase the diet to regular for lunch. If she does well, she will be discharged today. MEDICATIONS: She is currently on IV fluids, pain medication, insulin coverage, potassium, Januvia, Lyrica, Reglan, Zestril, Zofran p.r.n. PHYSICAL EXAMINATION: VITAL SIGNS: She has a 98.6 temp, 49 pulse, 144/79 blood pressure, 20 respiratory rate, 97% sat on room air. HEAD: Atraumatic and normocephalic. Throat is moist. NECK: Supple. HEART: Regular rate. LUNGS: Clear to auscultation. ABDOMEN: Soft, obese, nontender. Positive bowel sounds. No guarding, no rebound, no CVA tenderness. EXTREMITIES: There is no edema. She is walking around the room okay. LABORATORY DATA: Her white count is 4.6, hemoglobin 12.5, hematocrit 36.6, platelets of 209. Sodium is 138; potassium 3.3, I will give her potassium; BUN 7; creatinine 0.6; GFR is greater than 60; sugar is 208; calcium is 8.5; total bili is 0.5; AST of 18; ALT of 35; alk phos 92; total protein is 5.9. PLAN: To increase the diet today for lunch. If she does well, she will be discharged this afternoon. I think she should be able to do that today. She had her potassium replaced. She will see us for abdominal pain, constipation, gastroparesis, diabetes. Mayur Mcclendon DO
--- NOTE | 2017-07-20 14:07 | PN ---
DATE: Marizol Parker is seen on the floor with a left flank pain, it is on and off present. There is no tenderness that I can elicit. The CAT scan work has been unremarkable. I have no plans for surgical intervention. We treat her constipation for now. The patient is in addition seen by who plans elective EGD and colonoscopy. Aristeo Solorzano MD
--- NOTE | 2017-07-20 15:19 | PN ---
ENDO FOLLOWUP NOTE LOCATION: Room 561. This is a 51-year-old female with recent uncontrolled type 2 insulin-requiring diabetes presenting here with diffuse abdominal pain and was n.p.o. initially and now has been advanced to a liquid diet of note. She has also been followed closely for metabolic management because of recent hyperglycemic acceleration as noted above. Her latest glucose values today have ranged from 237 to 257 mg/dL. The latest chemistry showed a BUN of 7, sodium 138, potassium 3.3, chloride 104, CO2 of 23, glucose 208, and creatinine 0.7. Her hemoglobin A1c was 12.8% which is quite elevated and indicative of suboptimal metabolic control of her dietary condition even prior to this admission. She is apparently already taking basal insulin with Lantus given at bedtime and was on oral hypoglycemic drug therapy as given. So at this time, we will continue the basal insulin, but we will modify to a higher dose regimen of Levemir given as 12 units subcu at bedtime daily to start tonight. We will titrate incrementally as indicated to optimize metabolic control. We will also continue the low dose correction scale using NovoLog insulin as given. We will also be increasing the Januvia to 100 mg daily as ordered just prior today as given. We will consider the patient on glipizide or Amaryl before each meal if hyperglycemic levels persists as noted. If hyperglycemic levels persists postprandially, then we will consider the patient of rapid-acting Humalog given for each meal as indicated. We will obtain serial chemistry and supplement accordingly as needed. We will follow and advise accordingly. Adali Ferguson MD
[2017-07-20] MEDS: Sodium Chloride 0.45% 1,000 ML IV SCH (16:23)
[2017-07-20] MEDS ORDERED: Insulin Detemir 100 units/ml Vial (Levemir) SC SCH (22:00)
== END 2017-07-20 17:48 | disposition home or self-care (01) ==
LOC: ED 04:35 → ERH 07:01 → 5RNO 08:09
PROVIDERS: ADMIT Family Medicine; ATTEND Family Medicine
DX: K59.03 Drug induced constipation (principal); T40.2X5A Adverse effect of other opioids, initial encounter; J44.9 Chronic obstructive pulmonary disease, unspecified; I10 Essential (primary) hypertension; E11.43 Type 2 diabetes mellitus with diabetic autonomic (poly)neuropathy; K31.84 Gastroparesis; E11.65 Type 2 diabetes mellitus with hyperglycemia; E11.42 Type 2 diabetes mellitus with diabetic polyneuropathy; E11.319 Type 2 diabetes mellitus with unspecified diabetic retinopathy without macular edema; K21.9 Gastro-esophageal reflux disease without esophagitis; E78.00 Pure hypercholesterolemia, unspecified; Z79.4 Long term (current) use of insulin; R19.7 Diarrhea, unspecified; F17.210 Nicotine dependence, cigarettes, uncomplicated; M54.9 Dorsalgia, unspecified; F12.90 Cannabis use, unspecified, uncomplicated; Z91.81 History of falling; Z85.038 Personal history of other malignant neoplasm of large intestine; Z85.07 Personal history of malignant neoplasm of pancreas; Z90.49 Acquired absence of other specified parts of digestive tract; Z90.411 Acquired partial absence of pancreas; Z80.1 Family history of malignant neoplasm of trachea, bronchus and lung; Z80.0 Family history of malignant neoplasm of digestive organs
CPT/HCPCS: 36415; 80053; 81001; 82533; 82948; 83036; 83690; 84443; 85027; 96361; 96374; 96375; 96376; 99284; C9113; G0378; G0480; J1170; J2270; J2405; J7030; J7040

== ENCOUNTER 2017-07-21 10:57 | Observation (INO) | payer BC, OTHER ==
[2017-07-21] MEDS ORDERED: oxyCODONE 80 mg ER Tab (oxyCONTIN) PO STA (11:38)
[2017-07-21] MEDS ORDERED: Magnesium Citrate Oral SOL (300 ml) PO STA (11:39)
[2017-07-21] MEDS ORDERED: Sodium Chloride 0.9% 1,000 ML IV STA (11:40)
--- NOTE | 2017-07-21 11:55 | ED PDOC ---
Arrival/HPI - General Chief Complaint: GI Problem Time Seen by Provider: 07/21/17 11:11 Historian: Patient - History of Present Illness Narrative History of Present Illness (Text): 07/21/17 11:45 A 51 year old female, whose past medical history includes poorly controlled diabetes, hypertension, chronic neck and back pain on chronic opioids, colon CA s/p subtotal colostectomy, pancreatic CA s/p Whipple procedure in 1990, poly neuropathy, presents to the emergency department complaining of burning b/l lower abdominal pain since last night. Patient has had multiple visits to the hospital over past 2-3 weeks, including to two admissions due to persistent abdominal pain and constipation. She was last discharged yesterday and is suppose to be taking an agressive bowel regimen for symptoms. Patient reports last night she had watery bowel, same time when pain occurred. Patient denies of any fever, nausea, vomiting, diarrhea, chest pain, shortness of breath, or any other complaints. Patient last took oxycontin last night, and has taken nothing else since then. PMD: Dr. Ronnell Sue Symptom Onset: Sudden Symptom Course: Unchanged Quality: Burning Past Medical History - Provider Review Nursing Documentation Reviewed: Yes - Infectious Disease Hx of Infectious Diseases: None - Tetanus Immunization Tetanus Immunization: Unknown - Cardiac Hx Cardiac Disorders: Yes Hx Hypertension: Yes - Pulmonary Hx Chronic Obstructive Pulmonary Disease (COPD): Yes - Neurological Hx Neurological Disorder: No - HEENT Hx HEENT Disorder: No - Renal Hx Renal Disorder: No - Endocrine/Metabolic Hx Diabetes Mellitus Type 1: Yes - Hematological/Oncological Hx Cancer: Yes (Colon) Other/Comment: colon ca - Integumentary Hx Dermatological Disorder: No - Musculoskeletal/Rheumatological Hx Musculoskeletal Disorders: Yes Hx Falls: Yes - Gastrointestinal Hx Gastrointestinal Disorders: Yes Hx Gastroesophageal Reflux: Yes Other/Comment: colon ca with surgery - Genitourinary/Gynecological Hx Genitourinary Disorders: Yes Hx Urinary Tract Infection: Yes - Psychiatric Hx Psychophysiologic Disorder: No Hx Substance Use: No (use treatment) - Surgical History Other/Comment: CA Colon - whipple,CESEREAN X 1 - Anesthesia Hx Anesthesia: No Hx Anesthesia Reactions: No Hx Malignant Hyperthermia: No - Suicidal Assessment Feels Threatened In Home Enviroment: No Family/Social History - Physician Review Nursing Documentation Reviewed: Yes Family/Social History: No Known Family HX Smoking Status: Heavy Smoker > 10 Cigarettes Daily Hx Alcohol Use: No Hx Substance Use: No (use treatment) Hx Substance Use Treatment: Yes Allergies/Home Meds Allergies/Adverse Reactions: Allergies acetaminophen Allergy (Verified 07/21/17 11:11) RASH codeine Allergy (Verified 07/21/17 11:11) RASH iodine Allergy (Verified 07/21/17 11:11) RASH Home Medications: Home Meds Medication Instructions Recorded Confirmed Unobtainable 07/21/17 07/21/17 Review of Systems - Physician Review All systems were reviewed & negative as marked: Yes - Review of Systems Constitutional: absent: Fevers Respiratory: absent: SOB Cardiovascular: absent: Chest Pain Gastrointestinal: Abdominal Pain (burning b/l lower abdominal pain). absent: Diarrhea, Nausea, Vomiting Physical Exam Vital Signs Reviewed: Yes Vital Signs Temp Pulse Resp BP Pulse Ox 07/21/17 16:59 69 18 128/65 98 07/21/17 15:03 71 18 132/69 98 07/21/17 13:53 75 18 135/71 98 07/21/17 12:18 79 18 137/74 98 07/21/17 11:07 98.2 F 84 18 139/77 98 Temperature: Afebrile Blood Pressure: Normal Pulse: Regular Respiratory Rate: Normal Appearance: Positive for: Well-Appearing Pain Distress: None Mental Status: Positive for: Alert and Oriented X 3 - Systems Exam Head: Present: Atraumatic, Normocephalic Pupils: Present: PERRL Conjunctiva: Present: Normal Mouth: Present: Moist Mucous Membranes Pharnyx: Present: Normal. No: ERYTHEMA, EXUDATE Neck: Present: Normal Range of Motion Respiratory/Chest: Present: Clear to Auscultation, Good Air Exchange. No: Respiratory Distress, Accessory Muscle Use Cardiovascular: Present: Regular Rate and Rhythm, Normal S1, S2. No: Murmurs Abdomen: Present: Scars (old scars). No: Tenderness, Distention Back: Present: Normal Inspection Upper Extremity: Present: Normal Inspection. No: Cyanosis, Edema Lower Extremity: Present: Normal Inspection. No: Edema Neurological: Present: GCS=15, CN II-XII Intact, Speech Normal Skin: Present: Warm, Dry, Normal Color. No: Rashes Psychiatric: Present: Alert, Oriented x 3, Normal Insight, Normal Concentration Medical Decision Making ED Course and Treatment: 07/21/17 11:50 Impression: 51 year old female with burning b/l lower abdominal pain. Physical exam is unremarkable; old scars on abdomen. Plan: -- EKG -- Abdomen X-Ray -- Labs -- Enulose -- Citrate -- Reglan -- Protonix -- IV Fluids -- Oxycodone -- Urinalysis -- Reassess and disposition Prior Visits: Notes and results from previous visits were reviewed. Patient was last seen in the emergency department on 07/19/2017 for abdominal pain. Patient was admitted. Progress Notes: EKG: Ordered, reviewed, and independently interpreted the EKG. Rate : 46 BPM Rhythm : marked sinus bradycardia Interpretation : No ST-segment elevations or depressions, no T-wave inversions, normal intervals. Comparison : No previous EKG for comparison. 07/21/2017 16:53 Abdomen X-Ray IMPRESSION: Nonspecific bowel gas pattern is appreciate. Clinically correlate as to the need for potential follow-up pelvis CT with oral and intravenous contrast agents. Dictator: Oliverio Green MD 07/21/17 19:05 Patient's labs are nondiagnostic. CT done recently with no acute findings. The patient was given her schedule oral oxycodone as well as lactulose, magnesium citrate, dulcolax, and enema with no BM and no relief. Patient has been in the ED now for 8 hours. She says she has been taking the bowel regimen with no relief - XR shows NSBGP with no obstruction - discussed with Dr. Mazariegos , covering Dr. Mcclendon - will observe further on med/surg. - Lab Interpretations Lab Results: 07/21/17 12:38 07/21/17 12:38 Lab Results 07/21/17 13:00: Urine Color Yellow, Urine Appearance Clear, Urine pH 6.5, Ur Specific [place] 1.015, Urine Protein Negative, Urine Glucose (UA) 250 H, Urine Ketones Trace H, Urine Blood Negative, Urine Nitrate Negative, Urine Bilirubin Negative, Urine Urobilinogen 0.2, Ur Leukocyte Esterase Negative 07/21/17 12:38: Sodium 140, Potassium 4.2, Chloride 104, Carbon Dioxide 26, Anion Gap 14, BUN 8, Creatinine 0.6, Est GFR ( Amer) > 60, Est GFR (Non- Af Amer) > 60, Random Glucose 257 H, Calcium 9.4, Total Bilirubin 0.5, AST 17, ALT 25, Alkaline Phosphatase 111, Lactate Dehydrogenase 443, Total Creatine Kinase 68, Troponin I < 0.01, Total Protein 6.7, Albumin 4.1, Globulin 2.7, Albumin/Globulin Ratio 1.5, Amylase 55, Lipase 51 07/21/17 12:38: WBC 5.3, RBC 4.97, Hgb 13.7, Hct 40.1, MCV 80.7, MCH 27.6, MCHC 34.2, RDW 13.7, Plt Count 198, MPV 9.7, Gran % 60.7, Lymph % (Auto) 31.5, [place] % (Auto) 7.4 H, Eos % (Auto) 0.2 L, Baso % (Auto) 0.2, Gran # 3.20, Lymph # 1.7 , [place] # 0.4, Eos # 0.0, Baso # 0.01 - RAD Interpretation Radiology Orders: 07/21/17 16:03 ABD 2 VIEWS (FLAT/UP OR DECUB) [RAD] Stat - Medication Orders Current Medication Orders: Discontinued Medications Bisacodyl (Dulcolax) 10 mg RC STAT STA Stop: 07/21/17 16:03 Sodium Chloride (Sodium Chloride 0.9%) 1,000 mls @ 999 mls/hr IV .Q1H1M STA Stop: 07/21/17 12:40 Last Admin: 07/21/17 12:53 Dose: 999 mls/hr eMAR Start Stop Document 07/21/17 12:53 [facility] (Rec: 07/21/17 12:53 [id number]) Intravenous Solution Start Date 07/21/17 Start Time 12:53 Lactulose (Enulose) 20 gm PO ONCE STA Stop: 07/21/17 11:40 Last Admin: 07/21/17 12:52 Dose: 20 gm Lactulose (Enulose) 20 gm PO ONCE STA Stop: 07/21/17 16:01 Last Admin: 07/21/17 18:10 Dose: 20 gm Magnesium Citrate (Citrate Of Mag) 300 ml PO ONCE STA Stop: 07/21/17 11:40 Last Admin: 07/21/17 12:53 Dose: Not Given Non-Admin Reason: Patient Refused Metoclopramide HCl (Reglan) 10 mg IVP STAT STA Stop: 07/21/17 11:41 Last Admin: 07/21/17 12:53 Dose: 10 mg IVP Administration Document 07/21/17 12:53 HI (Rec: 07/21/17 12:[address] [facility]) Charges for Administration # of IVP Administrations 1 Oxycodone HCl (Oxycontin Extended Release Tab) 80 mg PO STAT STA Stop: 07/21/17 11:39 Last Admin: 07/21/17 12:51 Dose: 80 mg MAR Pain Assessment Document 07/21/17 12:51 HI (Rec: 07/21/17 12:[address] [facility]) Pain Reassessment Is this a pain reassessment? No Sleep Is patient sleeping during reassessment? No Presence of Pain Presence of Pain Yes Pain Scale Used Pain Scale Used Numeric Location Pain Location Body Site Abdomen Description Description Constant Intensity of Pain at present 7 Pain Behavior Facial Grimacing Pantoprazole Sodium (Protonix Inj) 40 mg IVP STAT STA Stop: 07/21/17 11:40 Last Admin: 07/21/17 12:52 Dose: 40 mg IVP Administration Document 07/21/17 12:52 HI (Rec: 07/21/17 12:[address] [facility]) Charges for Administration # of IVP Administrations 1 Sodium Phosphate (Fleet Enema) 135 ml RC STAT STA Stop: 07/21/17 16:03 Last Admin: 07/21/17 18:10 Dose: 135 ml - Scribe Statement The provider has reviewed the documentation as recorded by the Nel Arevalo Provider Scribe Attestation: All medical record entries made by the Nel were at my direction and personally dictated by me. I have reviewed the chart and agree that the record accurately reflects my personal performance of the history, physical exam, medical decision making, and the department course for this patient. I have also personally directed, reviewed, and agree with the discharge instructions and disposition. Disposition/Present on Arrival - Present on Arrival Any Indicators Present on Arrival: No History of DVT/PE: No History of Uncontrolled Diabetes: No Urinary Catheter: No History of Decub. Ulcer: No History Surgical Site Infection Following: None - Disposition Have Diagnosis and Disposition been Completed?: Yes Diagnosis: Intractable abdominal pain Disposition: HOSPITALIZED Disposition Time: 18:40 Patient Plan: Observation Condition: FAIR
[2017-07-21 12:43] LABS: BASO # 0.01 K/mm3 (0.0-2.0); BASO % 0.2 % (0.0-3.0); EOS % 0.2 % (1.5-5.0); GRAN # 3.2 (1.4-6.5); GRAN % 60.7 % (50.0-68.0); HEMATOCRIT 40.1 % (36.0-48.0); LYMPH # 1.7 (1.2-3.4); LYMPH % 31.5 % (22.0-35.0); MEAN CELL VOLUME 80.7 fl (80.0-105.0); MEAN CORPUSCULAR HEMOGLOBIN 27.6 pg (25.0-35.0); MEAN CORPUSCULAR HGB CONC 34.2 g/dl (31.0-37.0); MEAN PLATELET VOLUME 9.7 fl (7.0-11.0); MONO # 0.4 (0.1-0.6); MONO % 7.4 % (1.0-6.0); RED CELL DISTRIBUTION WIDTH 13.7 % (11.5-14.5); WHITE BLOOD COUNT 5.3 10^3/ul (4.5-11.0)
[2017-07-21 12:54] LABS: ALB/GLOB RATIO 1.5 (1.1-1.8); ALKALINE PHOSPHATASE 111 U/L (38-126); ALT/SGPT 25 U/L (7-56); AMYLASE 55 U/L (35-125); AST/SGOT 17 U/L (14-36); BILIRUBIN,TOTAL 0.5 mg/dL (0.2-1.3); BLOOD UREA NITROGEN 8 mg/dL (7-21); CALCIUM 9.4 mg/dL (8.4-10.5); CARBON DIOXIDE 26 mmol/L (21-33); CHLORIDE 104 mmol/L (98-107); GFR AFRICAN-AMERICAN > 60; GLUCOSE,RANDOM 257 mg/dL (70-110); LIPASE 51 U/L (23-300); POTASSIUM 4.2 mmol/L (3.6-5.0); SODIUM 140 mmol/L (132-148); TOTAL PROTEIN 6.7 g/dL (5.8-8.3)
[2017-07-21 13:08] LABS: PH,URINE 6.5 (4.7-8.0); URINE BILIRUBIN NEGATIVE (NEGATIVE); URINE BLOOD NEGATIVE (NEGATIVE); URINE GLUCOSE (UA) 250 mg/dL (NEGATIVE); URINE KETONE TRACE mg/dL (NEGATIVE); URINE LEUKOCYTE ESTERASE NEGATIVE Leu/uL (NEGATIVE); URINE PROTEIN NEGATIVE mg/dL (<30 mg/dL); URINE UROBILINOGEN 0.2 E.U./dL (<1 E.U./dL)
[2017-07-21 13:08] LABS: TROPONIN I < 0.01 ng/mL
[2017-07-21 13:09] LABS: URINE APPEARANCE CLEAR (CLEAR); URINE COLOR YELLOW (YELLOW)
--- NOTE | 2017-07-21 16:55 | RAD ---
HISTORY: abd pain, constipation COMPARISON: No prior. FINDINGS: BOWEL: There is nonspecific bowel gas pattern appreciate with a few distended small bowel loops appreciated filled with gas. Colon is not clearly identified on this exam. No gross free intrarenal gas. No abnormal intra-abdominal calcifications. Phleboliths identified in the inferior pelvis soft tissues. BONES: Normal. OTHER FINDINGS: None. IMPRESSION: Nonspecific bowel gas pattern is appreciate. Clinically correlate as to the need for potential follow-up abdomen pelvis CT with oral and intravenous contrast agents.
[2017-07-22] MEDS ORDERED: oxyCODONE 80 mg ER Tab (oxyCONTIN) PO ONE (01:02)
[2017-07-22 01:12] VITALS: RESP 20; BMI 34.3
[2017-07-22 03:48] VITALS: PULSE 45
[2017-07-22 07:58] VITALS: BP 155/77; TEMP 99; O2SAT 100
--- NOTE | 2017-07-22 08:18 | CARD ---
APPROVED REPORT EKG Measurement Heart [id number] <Conclusion> Marked sinus bradycardia No change
--- NOTE | 2017-07-22 19:50 | HP ---
HISTORY OF PRESENT ILLNESS: I know Marizol very well, this is the 3rd time coming to the emergency room, is almost coming every other day or every other 2 days for abdominal cramping. The emergency room, last night, they did not give her any pain medications. This is a 51-year-old female, who came back to the emergency room with abdominal cramping. She is taking chronic opioids as an outpatient by pain management doctor. She has a history of colon cancer, subtotal colectomy, pancreatic cancer status post Whipple procedure. She has had neuropathy. She has chronic abdominal pain for the past week at least multiple admissions. She is on observation right now. The throat is moist. She is doing much better. She is having problems of constipation too, but she has had watery bowel movements; so things are starting to move and x-ray of the abdomen was okay and nonspecific gas bowel pattern. PAST MEDICAL HISTORY: She has a past medical history of COPD, diabetes, colon cancer with surgery, falls, GERD, urinary tract infection. She had a Whipple procedure and a . FAMILY HISTORY: No known family history. SOCIAL HISTORY: She still smokes. No alcohol. Does drug history in the past. ALLERGIES: ALLERGIC TO ACETAMINOPHEN, CODEINE, AND IODINE. MEDICATIONS: She takes Januvia, Lipitor, Lyrica, metaxalone, oxycodone from some pain management doctor, Protonix, and Zestril. PHYSICAL EXAMINATION GENERAL: She is well appearing, alert and oriented right now. VITAL SIGNS: She has a 98.2 temperature, 84 pulse, 18 respiratory rate, 139/77 blood pressure, 90% O2 saturation on room air. HEENT: Head is atraumatic and normocephalic. Pupils are equal and reactive to light and accommodation. Throat is moist. NECK: Supple. HEART: Regular rate. Normal S1 and S2. LUNGS: Clear to auscultation bilaterally with decreased breath sounds. ABDOMEN: At this time, soft and nontender. Positive bowel sounds. No guarding. No rebound. No CVA tenderness. EXTREMITIES: No edema. NEUROLOGIC: GCS is 15. Cranial nerves II through XII grossly intact. SKIN: Warm and dry. THYROID: No palpable appreciable lymphadenopathy. LABORATORY DATA: She had multiple CAT scans from the past week, they did not do that this Wednesday. Her x-ray which was nonspecific bowel gas pattern. She had lab tests, urine was clean, no sugar. She had 257 blood sugar, 140 sodium, potassium 4.2, BUN 8, creatinine 0.6. GFR is greater than 60, calcium 9.4, total bilirubin is 0.5, AST is 17, ALT is 25, alkaline phosphatase is 111, troponin is 0.01, total protein is 6.7, albumin is 4.1, lipase is 61, amylase is 65. White count is 5.3, hemoglobin 13.7, hematocrit 44.1, platelets 198. She is going to have her diet increased to regular and she will be discharge today, I am hoping with the same medications. She will follow up with the specialist in the outpatient. She is in observation for abdominal pain. Mayur Mcclendon DO MTDD
--- NOTE | 2017-07-23 05:39 | DS ---
HISTORY OF PRESENT ILLNESS: She was here for abdominal pain. She never got any pain medication and it subsided by itself. It is the third time she has been in the hospital in about week. She is in observation for abdominal pain. She would not leave the emergency room. PHYSICAL EXAMINATION: VITAL SIGNS: She has 99 temperature, 45 pulse, 155/77 blood pressure, 20 respiratory rate, 100% O2 sat in room air. HEAD: Atraumatic and normocephalic. HEART: Regular rate. LUNGS: Clear to auscultation. ABDOMEN: Soft. EXTREMITIES: No edema. LABORATORY DATA: Labs are good. PLAN: She is back to her old self right now. We will increase her diet, the x-ray was okay also. She will be discharged today after she eats her diet. Outpatient follow with a specialist. Mayur Mcclendon DO
== END 2017-07-22 11:15 | disposition home or self-care (01) ==
LOC: ED 10:57 → ERH 18:41 → 5RNO 21:42
PROVIDERS: ADMIT Family Medicine; ATTEND Family Medicine
DX: R10.30 Lower abdominal pain, unspecified (principal); K21.9 Gastro-esophageal reflux disease without esophagitis; J44.9 Chronic obstructive pulmonary disease, unspecified; F17.200 Nicotine dependence, unspecified, uncomplicated; E11.9 Type 2 diabetes mellitus without complications; Z79.84 Long term (current) use of oral hypoglycemic drugs; Z85.038 Personal history of other malignant neoplasm of large intestine; Z87.440 Personal history of urinary (tract) infections; Z85.07 Personal history of malignant neoplasm of pancreas
CPT/HCPCS: 74020; 80053; 81003; 82150; 82550; 82948; 83615; 83690; 84484; 85025; 93005; 96372; 96374; 96375; 99285; C9113; G0378; J1885; J2765; J7040

== ENCOUNTER 2017-08-17 06:25 | Emergency (ER) | payer BC, OTHER ==
[2017-08-17 06:26] VITALS: BMI 34.3
[2017-08-17] MEDS ORDERED: Sodium Chloride 0.9% 1,000 ML IV STA (07:14)
--- NOTE | 2017-08-17 07:23 | ED PDOC ---
Arrival/HPI - General Chief Complaint: Abdominal Pain Time Seen by Provider: 08/17/17 07:07 Historian: Patient - History of Present Illness Narrative History of Present Illness (Text): 08/17/17 07:12 A 52 year old female, whose past medical history includes, intractable abdominal pain, uncontrolled diabetes mellitus, hyperglycemia, and diabetic ketoacidoses, presents to the emergency department for abdominal pain, which began 9 days ago. The patient states she has had this pain in the past. The patient denies any trauma, fever, chest pain, or any other complaints at this time. Time/Duration: > week (x 9 days) Symptom Onset: Gradual Symptom Course: Unchanged Activities at Onset: Light Context: Home Past Medical History - Provider Review Nursing Documentation Reviewed: Yes - Infectious Disease Hx of Infectious Diseases: None - Tetanus Immunization Tetanus Immunization: Unknown - Reproductive Menopause: Yes - Cardiac Hx Cardiac Disorders: Yes Hx Hypertension: Yes - Pulmonary Hx Asthma: Yes Hx Chronic Obstructive Pulmonary Disease (COPD): Yes - Neurological Hx Neurological Disorder: No - HEENT Hx HEENT Disorder: No - Renal Hx Renal Disorder: No - Endocrine/Metabolic Hx Diabetes Mellitus Type 1: Yes - Hematological/Oncological Hx Cancer: Yes (Colon) Other/Comment: colon ca - Integumentary Hx Dermatological Disorder: No - Musculoskeletal/Rheumatological Hx Musculoskeletal Disorders: No Hx Falls: No - Gastrointestinal Hx Gastrointestinal Disorders: Yes Hx Gastroesophageal Reflux: Yes Other/Comment: colon ca with surgery - Genitourinary/Gynecological Hx Genitourinary Disorders: No - Psychiatric Hx Psychophysiologic Disorder: No Hx Substance Use: No (use treatment) - Surgical History Hx Tubal Ligation: Yes Other/Comment: CA Colon - whipple,CESEREAN X 1 - Anesthesia Hx Anesthesia: No Hx Anesthesia Reactions: No Hx Malignant Hyperthermia: No - Suicidal Assessment Feels Threatened In Home Enviroment: No Family/Social History - Physician Review Nursing Documentation Reviewed: Yes Family/Social History: Unknown Family HX Smoking Status: Light Smoker < 10 Cigarettes Daily Hx Alcohol Use: No Hx Substance Use: No (use treatment) Hx Substance Use Treatment: Yes Allergies/Home Meds Allergies/Adverse Reactions: Allergies acetaminophen Allergy (Verified 08/17/17 06:36) RASH codeine Allergy (Verified 08/17/17 06:36) RASH iodine Allergy (Verified 08/17/17 06:36) RASH Home Medications: Home Meds Medication Instructions Recorded Confirmed Atorvastatin [Lipitor] 10 mg PO DAILY 07/22/17 07/22/17 Lisinopril [Zestril] 5 mg PO DAILY 07/22/17 07/22/17 Metaxalone [Metaxall] 800 mg PO QID 07/22/17 07/22/17 Oxycodone HCl [Oxycodone HCl] 80 mg PO Q12 07/22/17 07/22/17 Pregabalin [Lyrica] 100 mg PO TID 07/22/17 07/22/17 SITagliptin [Januvia] 50 mg PO DAILY 07/22/17 07/22/17 Review of Systems - Physician Review All systems were reviewed & negative as marked: Yes - Review of Systems Constitutional: absent: Fevers Cardiovascular: absent: Chest Pain Gastrointestinal: Abdominal Pain Physical Exam Vital Signs Reviewed: Yes Vital Signs Temp Pulse Resp BP Pulse Ox 08/17/17 09:46 98 F 86 16 147/85 99 08/17/17 08:33 98.1 F 66 17 104/70 97 08/17/17 06:45 98.2 F 67 17 123/70 94 L Temperature: Afebrile Blood Pressure: Normal Pulse: Regular Respiratory Rate: Normal Appearance: Positive for: Well-Appearing, Non-Toxic, Comfortable Pain Distress: None Mental Status: Positive for: Alert and Oriented X 3 - Systems Exam Head: Present: Atraumatic, Normocephalic Pupils: Present: PERRL Extroacular Muscles: Present: EOMI Conjunctiva: Present: Normal Mouth: Present: Moist Mucous Membranes Abdomen: Present: Tenderness (mild nonfocal tenderness ), Normal Bowel Sounds. No: Distention, Peritoneal Signs, Rebound, Guarding, [place]'s Point Tender Upper Extremity: Present: Normal Inspection. No: Cyanosis, Edema Lower Extremity: Present: Normal Inspection. No: Edema Neurological: Present: GCS=15, CN II-XII Intact, Speech Normal Skin: Present: Warm, Dry, Normal Color. No: Rashes Psychiatric: Present: Alert, Oriented x 3, Normal Insight, Normal Concentration Medical Decision Making ED Course and Treatment: 08/17/17 07:12 Impression: A 52 year old female with abdominal pain. noted numerous admission for intractable abdominal pain, on chronic opiate regiment. will recheck labs imaging Differential Diagnosis included but are not limited to: Plan: -- Abd & Pelvis CT -- Labs -- Zofran, IV Fluids -- Urinalysis -- Reassess and disposition Prior Visits: Notes and results from previous visits were reviewed. The patient was last seen in the emergency department on 07/21/17 for intractable abdominal pain. The patient was hospitalized. Progress Notes: 08/17/17 10:14 pt reasseseed: zina green. ct labs unremarkable. advise outpt management. - Lab Interpretations Lab Results: 08/17/17 07:45 08/17/17 07:45 Lab Results 08/17/17 07:45: Sodium 135, Potassium 4.2, Chloride 96, Carbon Dioxide 26, Anion Gap 17, BUN 14, Creatinine 0.6 L, Est GFR ( Amer) > 60, Est GFR ( Non-Af Amer) > 60, Random Glucose 416 H* D, Calcium 9.8, Total Bilirubin 0.8, AST 15, ALT 35, Alkaline Phosphatase 133 H, Total Protein 7.6, Albumin 4.7, Globulin 2.9, Albumin/Globulin Ratio 1.6, Lipase 44 08/17/17 07:45: Urine Color Yellow, Urine Appearance Clear, Urine pH 6.0, Ur Specific [place] 1.015, Urine Protein Negative, Urine Glucose (UA) >=1000, Urine Ketones >=80, Urine Blood Negative, Urine Nitrate Negative, Urine Bilirubin Negative, Urine Urobilinogen 0.2, Ur Leukocyte Esterase Negative, Urine HCG, Qual Negative 08/17/17 07:45: PT 11.2, INR 1.02, APTT 25.9 08/17/17 07:45: WBC 4.1 L D, RBC 5.12, Hgb 13.9, Hct 41.0, MCV 80.1, MCH 27.1, MCHC 33.9, RDW 13.2, Plt Count 223, MPV 9.9, Gran % 62.3, Lymph % (Auto) 30.9, [place] % (Auto) 5.6, Eos % (Auto) 1.0 L, Baso % (Auto) 0.2, Gran # 2.58, Lymph # 1.3, [place] # 0.2, Eos # 0.0, Baso # 0.01 I have reviewed the lab results: Yes - RAD Interpretation Radiology Orders: 08/17/17 07:15 ABD & PELVIS W/O PO OR IV CONT [CT] Stat - Medication Orders Current Medication Orders: Discontinued Medications Sodium Chloride (Sodium Chloride 0.9%) 1,000 mls @ 1,000 mls/hr IV .Q1H STA Stop: 08/17/17 08:13 Last Admin: 08/17/17 07:45 Dose: 1,000 mls/hr eMAR Start Stop Document 08/17/17 07:45 [facility] (Rec: 08/17/17 07:45 [facility] [id number]) Intravenous Solution Start Date 08/17/17 Start Time 07:45 End Date 08/17/17 End time 08:45 Total Infusion Time 60 Insulin Human Regular (Humulin R) 4 units IV STAT STA Stop: 08/17/17 08:11 Last Admin: 08/17/17 08:27 Dose: 4 units eMAR Start Stop Document 08/17/17 08:27 [facility] (Rec: 08/17/17 08:27 [facility] [id number]) Intravenous Solution Start Date 08/17/17 Start Time 08:27 End Date 08/17/17 End time 08:30 Total Infusion Time 3 MAR Blood Glucose Document 08/17/17 08:27 [facility] (Rec: 08/17/17 08:27 [facility] [id number]) Blood Glucose Finger Stick Blood Glucose (70-120) 416 Ketorolac Tromethamine (Toradol) 30 mg IVP STAT STA Stop: 08/17/17 08:04 Last Admin: 08/17/17 08:27 Dose: 30 mg MAR Pain Assessment Document 08/17/17 08:27 [facility] (Rec: 08/17/17 08:27 [facility] [id number]) Pain Reassessment Is this a pain reassessment? Yes Sleep Is patient sleeping during reassessment? No Presence of Pain Presence of Pain Yes Pain Scale Used Pain Scale Used Numeric Location Pain Location Body Site Abdomen Description Intensity of Pain at present 10 IVP Administration Document 08/17/17 08:27 [facility] (Rec: 08/17/17 08:27 [facility] [id number]) Charges for Administration # of IVP Administrations 1 Ondansetron HCl (Zofran Inj) 4 mg IVP STAT STA Stop: 08/17/17 07:15 Last Admin: 08/17/17 07:43 Dose: 4 mg IVP Administration Document 08/17/17 07:43 [facility] (Rec: 08/17/17 07:43 [facility] [id number]) Charges for Administration # of IVP Administrations 1 - Scribe Statement The provider has reviewed the documentation as recorded by the Scribe Lindsay Richards Provider Scribe Attestation: All medical record entries made by the Scribe were at my direction and personally dictated by me. I have reviewed the chart and agree that the record accurately reflects my personal performance of the history, physical exam, medical decision making, and the department course for this patient. I have also personally directed, reviewed, and agree with the discharge instructions and disposition. Disposition/Present on Arrival - Present on Arrival Any Indicators Present on Arrival: No History of DVT/PE: No History of Uncontrolled Diabetes: No Urinary Catheter: No History of Decub. Ulcer: No History Surgical Site Infection Following: None - Disposition Have Diagnosis and Disposition been Completed?: Yes Diagnosis: Abdominal pain Disposition: HOME/ ROUTINE Disposition Time: 10:00 Condition: STABLE Discharge Instructions (ExitCare): Acute Abdominal Pain (ED) Additional Instructions: please see your doctor. return to emergency room with worsening symptoms or concerns. please see specialist. Referrals: Martinez Rincon MD [Staff Provider] - Follow up with primary Gerber Mejia MD [Staff Provider] - Follow up with primary Forms: [employer] (Slovak)
[2017-08-17 07:49] LABS: BASO # 0.01 K/mm3 (0.0-2.0); BASO % 0.2 % (0.0-3.0); GRAN # 2.58 (1.4-6.5); GRAN % 62.3 % (50.0-68.0); LYMPH # 1.3 (1.2-3.4); LYMPH % 30.9 % (22.0-35.0); MEAN CELL VOLUME 80.1 fl (80.0-105.0); MEAN CORPUSCULAR HEMOGLOBIN 27.1 pg (25.0-35.0); MEAN CORPUSCULAR HGB CONC 33.9 g/dl (31.0-37.0); MEAN PLATELET VOLUME 9.9 fl (7.0-11.0); MONO # 0.2 (0.1-0.6); MONO % 5.6 % (1.0-6.0); RED CELL DISTRIBUTION WIDTH 13.2 % (11.5-14.5); WHITE BLOOD COUNT 4.1 10^3/ul (4.5-11.0)
[2017-08-17 07:56] LABS: URINE BILIRUBIN NEGATIVE (NEGATIVE); URINE BLOOD NEGATIVE (NEGATIVE); URINE GLUCOSE (UA) >=1000 mg/dL (NEGATIVE); URINE KETONE >=80 mg/dL (NEGATIVE); URINE LEUKOCYTE ESTERASE NEGATIVE Leu/uL (NEGATIVE); URINE PROTEIN NEGATIVE mg/dL (<30 mg/dL); URINE UROBILINOGEN 0.2 E.U./dL (<1 E.U./dL)
[2017-08-17 08:03] LABS: URINE APPEARANCE CLEAR (CLEAR); URINE COLOR YELLOW (YELLOW)
[2017-08-17 08:04] LABS: ALB/GLOB RATIO 1.6 (1.1-1.8); ALKALINE PHOSPHATASE 133 U/L (38-126); ALT/SGPT 35 U/L (7-56); AST/SGOT 15 U/L (14-36); BILIRUBIN,TOTAL 0.8 mg/dL (0.2-1.3); BLOOD UREA NITROGEN 14 mg/dL (7-21); CALCIUM 9.8 mg/dL (8.4-10.5); CARBON DIOXIDE 26 mmol/L (21-33); CHLORIDE 96 mmol/L (95-110); GFR AFRICAN-AMERICAN > 60; LIPASE 44 U/L (23-300); POTASSIUM 4.2 mmol/L (3.6-5.0); SODIUM 135 mmol/L (132-148); TOTAL PROTEIN 7.6 g/dL (5.8-8.3)
[2017-08-17 08:05] LABS: INR 1.02 (0.93-1.08); PARTIAL THROMBOPLASTIN TIME 25.9 Seconds (25.1-36.5)
[2017-08-17 08:08] LABS: GLUCOSE,RANDOM 416 mg/dL (70-110)
[2017-08-17] MEDS ORDERED: Insulin Regular 1 UNITS/0.01 ML ML IV STA (08:10)
--- NOTE | 2017-08-17 09:28 | CT ---
PROCEDURE: CT Abdomen and Pelvis without intravenous contrast HISTORY: abd pain COMPARISON: None. TECHNIQUE: Helical CT of the abdomen and pelvis was performed without oral or intravenous contrast as per referring physician request . Contrast Dose: None Radiation dose: Total exam DLP = 760.31 mGy-cm. This CT exam was performed using one or more of the following dose reduction techniques: Automated exposure control, adjustment of the mA and/or kV according to patient size, and/or use of iterative reconstruction technique. FINDINGS: LOWER THORAX: Unremarkable. LIVER: Mild nondependent of pneumobilia again appreciated status post prior cholecystectomy. GALLBLADDER AND BILE DUCTS: Prior cholecystectomy. PANCREAS: Unremarkable. No gross lesion or ductal dilatation. SPLEEN: Unremarkable. ADRENALS: Stable 2.2 left adrenal adenoma, with 2.6 cm right adrenal adenoma identified once again. KIDNEYS AND URETERS: Unremarkable. No hydronephrosis. No solid mass. VASCULATURE: Unremarkable. No aortic aneurysm. BOWEL: A moderate amount of retained fecal material is identified at the the sigmoid colon in this patient is apparently status post subtotal colectomy. Small bowel is unremarkable as imaged. The stomach is partially collapsed. Evaluation the gastrointestinal tract is poor given the lack of oral contrast. APPENDIX: Not identified. No definite pattern of appendicitis however. PERITONEUM: Unremarkable. No free fluid. No free air. LYMPH NODES: Unremarkable. No enlarged lymph nodes. BLADDER: Unremarkable. REPRODUCTIVE: Unremarkable. BONES: No acute fracture. OTHER FINDINGS: None. IMPRESSION: Prior subtotal colectomy with bowel appearing grossly nonfocal though limited evaluation due lack of oral contrast administration. No acute abdominal findings are identified in the pelvic viscera appear grossly nonfocal. Prior cholecystectomy with pneumobilia again identified in the nondependent liver. Bilateral adrenal adenomas again identified greater
[2017-08-17 09:48] VITALS: BP 147/85; PULSE 86; RESP 16; TEMP 98; O2SAT 99
== END 2017-08-17 09:54 | disposition home or self-care (01) ==
LOC: ED 06:25
DX: R10.9 Unspecified abdominal pain (principal); F17.210 Nicotine dependence, cigarettes, uncomplicated; I10 Essential (primary) hypertension; E10.9 Type 1 diabetes mellitus without complications; J44.9 Chronic obstructive pulmonary disease, unspecified
CPT/HCPCS: 74176; 80053; 81003; 82948; 83690; 84703; 85025; 85610; 85730; 96361; 96374; 96375; 99284; J1885; J2405; J7040

== ENCOUNTER 2017-08-17 17:35 | Inpatient (IN) | payer BC, OTHER ==
[2017-08-17 17:36] VITALS: BMI 34.3
--- NOTE | 2017-08-17 17:50 | ED PDOC ---
Arrival/HPI - General Time Seen by Provider: 08/17/17 17:37 Historian: Patient - History of Present Illness Narrative History of Present Illness (Text): 08/17/17 17:47 A 52 year old female, whose past medical history includes gastroparesis, sent into the emergency department by legal entity controller for intractable vomiting. Patient was evaluated this morning and discharged with negative labs and CT. Patient has numerous admissions for similar complaints. Patient denies any fever , chills, chest pain, shortness of breath or any other complaints. Time/Duration: Prior to Arrival Symptom Course: Unchanged Quality: Other Context: Other Past Medical History - Provider Review Nursing Documentation Reviewed: Yes - Infectious Disease Hx of Infectious Diseases: None - Tetanus Immunization Tetanus Immunization: Unknown - Cardiac Hx Cardiac Disorders: Yes Hx Hypertension: Yes - Pulmonary Hx Asthma: Yes Hx Chronic Obstructive Pulmonary Disease (COPD): Yes - Neurological Hx Neurological Disorder: No - HEENT Hx HEENT Disorder: No - Renal Hx Renal Disorder: No - Endocrine/Metabolic Hx Diabetes Mellitus Type 1: Yes - Hematological/Oncological Hx Cancer: Yes (Colon) Other/Comment: colon ca - Integumentary Hx Dermatological Disorder: No - Musculoskeletal/Rheumatological Hx Musculoskeletal Disorders: No Hx Falls: No - Gastrointestinal Hx Gastrointestinal Disorders: Yes Hx Gastroesophageal Reflux: Yes Other/Comment: colon ca with surgery - Genitourinary/Gynecological Hx Genitourinary Disorders: No - Psychiatric Hx Psychophysiologic Disorder: No Hx Substance Use: No (use treatment) - Surgical History Hx Tubal Ligation: Yes Other/Comment: CA Colon - whipple,CESEREAN X 1 - Anesthesia Hx Anesthesia: No Hx Anesthesia Reactions: No Hx Malignant Hyperthermia: No - Suicidal Assessment Feels Threatened In Home Enviroment: No Family/Social History - Physician Review Nursing Documentation Reviewed: Yes Family/Social History: No Known Family HX Smoking Status: Light Smoker < 10 Cigarettes Daily Hx Alcohol Use: No Hx Substance Use: No (use treatment) Hx Substance Use Treatment: Yes Allergies/Home Meds Allergies/Adverse Reactions: Allergies acetaminophen Allergy (Verified 08/17/17 06:36) RASH codeine Allergy (Verified 08/17/17 06:36) RASH iodine Allergy (Verified 08/17/17 06:36) RASH Home Medications: Home Meds Medication Instructions Recorded Confirmed Metaxalone [Metaxall] 800 mg PO QID 07/22/17 08/17/17 Oxycodone HCl [Oxycodone HCl] 80 mg PO Q12 07/22/17 08/17/17 SITagliptin [Januvia] 50 mg PO DAILY 07/22/17 08/17/17 Enalapril Maleate [Vasotec] 5 mg PO DAILY 08/17/17 08/17/17 Famotidine [Pepcid] 40 mg PO DAILY 08/17/17 08/17/17 Hydroxyzine Pamoate [Hydroxyzine 100 mg PO DAILY 08/17/17 08/17/17 Pamoate] Insulin Glargine, Recombina 15 units SC HS 08/17/17 08/17/17 [Lantus] MetFORMIN [glucoPHAGE] 1,000 mg PO BID 08/17/17 08/17/17 Metoclopramide HCl [Reglan] 10 mg PO BID 08/17/17 08/17/17 Omeprazole [Omeprazole] 20 mg PO DAILY 08/17/17 08/17/17 Ondansetron ODT [Zofran ODT] 4 mg PO Q6H PRN 08/17/17 08/17/17 Oxycodone HCl [Oxycontin] 160 mg PO BID 08/17/17 08/17/17 Pantoprazole Sodium [Protonix] 40 mg PO DAILY 08/17/17 08/17/17 Potassium Chloride [Klor-Con] 20 meq PO DAILY 08/17/17 08/17/17 Simvastatin [Zocor] 20 mg PO DAILY 08/17/17 08/17/17 Review of Systems - Physician Review All systems were reviewed & negative as marked: Yes - Review of Systems Constitutional: absent: Fevers, Night Sweats Respiratory: absent: SOB Cardiovascular: absent: Chest Pain Gastrointestinal: Vomiting Physical Exam Vital Signs Temp Pulse Resp BP Pulse Ox 08/17/17 18:31 98.8 F 80 20 141/81 100 Appearance: Positive for: Well-Appearing, Non-Toxic, Comfortable Pain Distress: None Mental Status: Positive for: Alert and Oriented X 3 - Systems Exam Head: Present: Atraumatic, Normocephalic Pupils: Present: PERRL Extroacular Muscles: Present: EOMI Conjunctiva: Present: Normal Mouth: Present: Moist Mucous Membranes Neck: Present: Normal Range of Motion Respiratory/Chest: Present: Clear to Auscultation, Good Air Exchange. No: Respiratory Distress, Accessory Muscle Use Cardiovascular: Present: Regular Rate and Rhythm, Normal S1, S2. No: Murmurs Abdomen: Present: Normal Bowel Sounds. No: Tenderness, Distention, Peritoneal Signs Back: Present: Normal Inspection Upper Extremity: Present: Normal Inspection. No: Cyanosis, Edema Lower Extremity: Present: Normal Inspection. No: Edema Neurological: Present: GCS=15, CN II-XII Intact, Speech Normal Skin: Present: Warm, Dry, Normal Color. No: Rashes Psychiatric: Present: Alert, Oriented x 3, Normal Insight, Normal Concentration Medical Decision Making ED Course and Treatment: 08/17/17 17:47 Impression: A 52 year old female with intractable vomiting. Plan: -- Labs -- Zofran and IV fluids -- Reassess and disposition Progress Notes: Cased discussed with Dr. Mcclendon, who accepts patient for observation. - Lab Interpretations Lab Results: 08/18/17 07:00 08/18/17 07:00 Lab Results 08/18/17 11:17: POC Glucose (mg/dL) 219 H 08/18/17 08:17: POC Glucose (mg/dL) 310 H 08/18/17 07:00: Sodium 139, Potassium 4.0, Chloride 105, Carbon Dioxide 21, Anion Gap 17, BUN 18, Creatinine 0.7, Est GFR ( Amer) > 60, Est GFR (Non- Af Amer) > 60, Random Glucose 320 H*, Calcium 9.3, Total Bilirubin 0.8, AST 16, ALT 32, Alkaline Phosphatase 107, Total Protein 6.5, Albumin 3.9, Globulin 2.6, Albumin/Globulin Ratio 1.5 08/18/17 07:00: WBC 6.0 D, RBC 4.59, Hgb 12.1, Hct 37.0, MCV 80.6, MCH 26.4, MCHC 32.7, RDW 13.5, Plt Count 228, MPV 9.9 08/18/17 03:25: POC Glucose (mg/dL) 315 H 08/17/17 22:05: POC Glucose (mg/dL) 324 H 08/17/17 19:14: Sodium 137, Potassium 4.0, Chloride 100, Carbon Dioxide 22, Anion Gap 19, BUN 16, Creatinine 0.6 L, Est GFR ( Amer) > 60, Est GFR ( Non-Af Amer) > 60, Random Glucose 294 H, Calcium 9.5, Total Bilirubin 0.6, AST 14, ALT 26, Alkaline Phosphatase 111, Total Protein 6.7, Albumin 4.1, Globulin 2.7, Albumin/Globulin Ratio 1.5, Lipase 30 08/17/17 18:21: WBC 4.2 L, RBC 4.79, Hgb 12.9, Hct 38.4, MCV 80.2, MCH 26.9, MCHC 33.6, RDW 13.3, Plt Count 215, MPV 9.7, Gran % 50.8, Lymph % (Auto) 42.0 H , Quay % (Auto) 6.8 H, Eos % (Auto) 0.2 L, Baso % (Auto) 0.2, Gran # 2.15, Lymph # 1.8, Quay # 0.3, Eos # 0.0, Baso # 0.01 I have reviewed the lab results: Yes - Medication Orders Current Medication Orders: Sodium Chloride (Sodium Chloride 0.9%) 1,000 mls @ 100 mls/hr IV .Q10H [facility] Last Admin: 08/20/17 02:01 Dose: 100 mls/hr eMAR Start Stop Document 08/20/17 02:01 SILVA (Rec: 08/20/17 02:01 [id number] Intravenous Solution Start Date 08/20/17 Start Time 02:00 Insulin Detemir (Levemir) [facility] Last Admin: 08/19/17 09:05 Dose: 10 unit MAR Blood Glucose Document 08/19/17 09:05 MV (Rec: 08/19/17 09:05 MV [id number]) Blood Glucose Finger Stick Blood Glucose (70-120) 292 Subcutaneous Administrations Document 08/19/17 09:05 MV (Rec: 08/19/17 09:05 MV [id number]) Injection Site MAR Injection Site Right Arm Charges for Administration # of Subcutaneous Administrations 1 Insulin Detemir (Levemir) 10 unit SC HS [facility] Last Admin: 08/19/17 21:33 Dose: 10 unit MAR Blood Glucose Document 08/19/17 21:33 SILVA (Rec: 08/19/17 21:33 [id number]) Blood Glucose Finger Stick Blood Glucose (70-120) 231 Subcutaneous Administrations Document 08/19/17 21:33 [facility] (Rec: 08/19/17 21:33 [id number] Injection Site MAR Injection Site Left Arm Charges for Administration # of Subcutaneous Administrations 1 Insulin Human Regular (Humulin R High) 0 units SC ACHS NADYA PRN Reason: Protocol Last Admin: 08/19/17 21:32 Dose: Not Given Non-Admin Reason: Blood Sugar Parameter Ketorolac Tromethamine (Toradol) 30 mg IVP Q6H PRN PRN Reason: Pain, moderate (4-7) Last Admin: 08/20/17 06:06 Dose: 30 mg MAR Pain Assessment Document 08/20/17 06:06 [facility] (Rec: 08/20/17 06:06 [id number]) Pain Reassessment Is this a pain reassessment? No Sleep Is patient sleeping during reassessment? No Presence of Pain Presence of Pain Yes IVP Administration Document 08/20/17 06:06 [facility] (Rec: 08/20/17 06:06 [id number] Charges for Administration # of IVP Administrations 1 Lisinopril (Zestril) 5 mg PO DAILY [facility] Last Admin: 08/19/17 09:05 Dose: 5 mg MAR Pulse and Blood Pressure Document 08/19/17 09:05 MV (Rec: 08/19/17 09:06 MV [id number]) Pulse Pulse Rate (60-90) 60 Blood Pressure Blood Pressure (100/60-150/90) 177/79 Metoclopramide HCl (Reglan) 5 mg IVP [facility] Last Admin: 08/19/17 21:03 Dose: 5 mg IVP Administration Document 08/19/17 21:03 [facility] (Rec: 08/19/17 21:03 [id number]) Charges for Administration # of IVP Administrations 1 Morphine Sulfate (Morphine) 1 mg IVP Q3 PRN PRN Reason: MOD-PAIN Stop: 08/21/17 16:31 Ondansetron HCl (Zofran Inj) 4 mg IVP Q4H PRN PRN Reason: Nausea/Vomiting Last Admin: 08/20/17 06:05 Dose: 4 mg IVP Administration Document 08/20/17 06:05 [facility] (Rec: 08/20/17 06:06 [facility] [id number]) Charges for Administration # of IVP Administrations 1 Pantoprazole Sodium (Protonix Inj) 40 mg IVP 0600 [facility] Last Admin: 08/20/17 06:26 Dose: 40 mg IVP Administration Document 08/20/17 06:26 [facility] (Rec: 08/20/17 06:27 [facility] [id number]) Charges for Administration # of IVP Administrations 1 Polyethylene Glycol (Miralax) 17 gm PO BID [facility] Last Admin: 08/19/17 17:18 Dose: 17 gm Sennosides (Senokot Tab) 17.2 mg PO HS [facility] Last Admin: 08/19/17 21:10 Dose: 17.2 mg Discontinued Medications Bisacodyl (Dulcolax) 5 mg PO HS ONE Stop: 08/19/17 20:01 Last Admin: 08/19/17 21:10 Dose: 5 mg Insulin Detemir (Levemir) 7 unit SC QAM [facility] Last Admin: 08/18/17 10:30 Dose: 7 unit MAR Blood Glucose Document 08/18/17 10:30 LMN (Rec: 08/18/17 10:30 LMN [id number]) Blood Glucose Finger Stick Blood Glucose (70-120) 302 Subcutaneous Administrations Document 08/18/17 10:30 LMN (Rec: 08/18/17 10:30 LMN [id number]) Injection Site MAR Injection Site Left Arm Charges for Administration # of Subcutaneous Administrations 1 Insulin Detemir (Levemir) 8 unit SC HS [facility] Last Admin: 08/18/17 21:51 Dose: 8 unit MAR Blood Glucose Document 08/18/17 21:51 PCO (Rec: 08/18/17 21:51 PCO [id number]) Blood Glucose Finger Stick Blood Glucose (70-120) 205 Subcutaneous Administrations Document 08/18/17 21:51 PCO (Rec: 08/18/17 21:51 PCO [id number]) Injection Site MAR Injection Site Right Arm Charges for Administration # of Subcutaneous Administrations 1 Ketorolac Tromethamine (Toradol) 30 mg IVP Q8H PRN PRN Reason: Pain, moderate (4-7) Last Admin: 08/17/17 19:48 Dose: 30 mg MAR Pain Assessment Document 08/17/17 19:48 SE (Rec: 08/17/17 19:48 SE [id number]) Pain Reassessment Is this a pain reassessment? No Sleep Is patient sleeping during reassessment? No Presence of Pain Presence of Pain Yes IVP Administration Document 08/17/17 19:48 SE (Rec: 08/17/17 19:48 SE [id number]) Charges for Administration # of IVP Administrations 1 Morphine Sulfate (Morphine) 1 mg IVP Q3 PRN PRN Reason: Pain, moderate (4-7) Morphine Sulfate (Morphine) 1 mg IVP Q3 PRN PRN Reason: MOD-PAIN Last Admin: 08/20/17 04:24 Dose: 1 mg MAR Pain Assessment Document 08/20/17 04:24 ZARAL (Rec: 08/20/17 04:25 ZARAL [id number]) Pain Reassessment Is this a pain reassessment? No Sleep Is patient sleeping during reassessment? No Presence of Pain Presence of Pain Yes IVP Administration Document 08/20/17 04:24 ZARAL (Rec: 08/20/17 04:25 ZARAL [id number]) Charges for Administration # of IVP Administrations 1 Ondansetron HCl (Zofran Inj) 4 mg IVP STAT STA Stop: 08/17/17 17:43 Last Admin: 08/17/17 18:00 Dose: IVP Administration Document 08/17/17 18:00 OCS (Rec: 08/17/17 18:37 OCS [id number]) Charges for Administration # of IVP Administrations 1 - Scribe Statement The provider has reviewed the documentation as recorded by the Scribe Cynthia Call Provider Scribe Attestation: All medical record entries made by the Scribe were at my direction and personally dictated by me. I have reviewed the chart and agree that the record accurately reflects my personal performance of the history, physical exam, medical decision making, and the department course for this patient. I have also personally directed, reviewed, and agree with the discharge instructions and disposition. Disposition/Present on Arrival - Present on Arrival Any Indicators Present on Arrival: No History of DVT/PE: No History of Uncontrolled Diabetes: No Urinary Catheter: No History Surgical Site Infection Following: None - Disposition Have Diagnosis and Disposition been Completed?: Yes Diagnosis: Vomiting Disposition: HOSPITALIZED Disposition Time: 07:00 Condition: STABLE
[2017-08-17] MEDS: Sodium Chloride 0.9% 1,000 ML IV SCH (18:38)
[2017-08-17 18:49] LABS: BASO # 0.01 K/mm3 (0.0-2.0); BASO % 0.2 % (0.0-3.0); EOS % 0.2 % (1.5-5.0); GRAN # 2.15 (1.4-6.5); GRAN % 50.8 % (50.0-68.0); HEMATOCRIT 38.4 % (36.0-48.0); LYMPH # 1.8 (1.2-3.4); MEAN CELL VOLUME 80.2 fl (80.0-105.0); MEAN CORPUSCULAR HEMOGLOBIN 26.9 pg (25.0-35.0); MEAN CORPUSCULAR HGB CONC 33.6 g/dl (31.0-37.0); MEAN PLATELET VOLUME 9.7 fl (7.0-11.0); MONO # 0.3 (0.1-0.6); MONO % 6.8 % (1.0-6.0); RED CELL DISTRIBUTION WIDTH 13.3 % (11.5-14.5); WHITE BLOOD COUNT 4.2 10^3/ul (4.5-11.0)
[2017-08-17 19:34] LABS: ALB/GLOB RATIO 1.5 (1.1-1.8); ALKALINE PHOSPHATASE 111 U/L (38-126); ALT/SGPT 26 U/L (7-56); AST/SGOT 14 U/L (14-36); BILIRUBIN,TOTAL 0.6 mg/dL (0.2-1.3); BLOOD UREA NITROGEN 16 mg/dL (7-21); CALCIUM 9.5 mg/dL (8.4-10.5); CARBON DIOXIDE 22 mmol/L (21-33); CHLORIDE 100 mmol/L (98-107); GFR AFRICAN-AMERICAN > 60; GLUCOSE,RANDOM 294 mg/dL (70-110); LIPASE 30 U/L (23-300); SODIUM 137 mmol/L (132-148); TOTAL PROTEIN 6.7 g/dL (5.8-8.3)
[2017-08-17] MEDS: Insulin Reg-HIGH-Coverage SC SCH (22:24)
[2017-08-18] MEDS ORDERED: Pantoprazole 40mg/100ml IVPB 40 MG/100 ML BAG IVPB SCH (06:00)
[2017-08-18 07:14] LABS: MEAN CELL VOLUME 80.6 fl (80.0-105.0); MEAN CORPUSCULAR HEMOGLOBIN 26.4 pg (25.0-35.0); MEAN CORPUSCULAR HGB CONC 32.7 g/dl (31.0-37.0); MEAN PLATELET VOLUME 9.9 fl (7.0-11.0); RED CELL DISTRIBUTION WIDTH 13.5 % (11.5-14.5)
[2017-08-18 07:20] LABS: ALB/GLOB RATIO 1.5 (1.1-1.8); ALKALINE PHOSPHATASE 107 U/L (38-126); ALT/SGPT 32 U/L (7-56); AST/SGOT 16 U/L (14-36); BILIRUBIN,TOTAL 0.8 mg/dL (0.2-1.3); BLOOD UREA NITROGEN 18 mg/dL (7-21); CALCIUM 9.3 mg/dL (8.4-10.5); CARBON DIOXIDE 21 mmol/L (21-33); CHLORIDE 105 mmol/L (98-107); GFR AFRICAN-AMERICAN > 60; SODIUM 139 mmol/L (132-148); TOTAL PROTEIN 6.5 g/dL (5.8-8.3)
[2017-08-18 07:31] LABS: GLUCOSE,RANDOM 320 mg/dL (70-110)
--- NOTE | 2017-08-18 07:41 | CP.PCM.CON ---
<Sindhu Craig - Last Filed: 08/18/17 12:29> History of Present Illness - History of Present Illness History of Present Illness: PGY2 for Dr. Callejas GI consult: intractable N/V 52 years old female with PMHx chronic pain on oxycodone, HTN, asthma, colon cancer s/p subtotal colectomy 1989 (no chemoradiation), prancreatic cancer s/p Whipple's 1990, uncontrolled DM2 complicated by gastroparesis, retinopathy, polyneuropathy was sent to emergency room by [employer] for intractable vomiting. Pt also complained of abdominal pain started 9 days ago, visit ER yesterday moristefanie, and was discharged for outpt management, Pt had Appt with Dr. Mejia at 3pm. She vomited 2x prior to office visit and 4x during the office visit. Last emesis was 6:30 am today. She has chronic abdominal pain, epigastric , sharp, which made worse with vomiting. BM was ususally regular, soft, daily but recent constipation since wednesday. Last BM was yesterday was hard and a lump. (+) weight loss ROS: Denies sick contract, travel [place] f/c, (+) dizziness, (+) wt loss 10 lb in 3 month Denies CP, SOB, (+) N/V/C. Denies diarreha. (+) abdominal pain (+) constipation,Last BM Wednesday, yesterday she had a small hard lump stool CT A/P w/o contrast: No acute abdominal findings. (+) retained fecal matters in rectum Prior cholecystecmy with pneumobilia, unchanged Adrenal adenoma, b/l, greater EKG: sinus cheikh @ 46. UT 136. QTc 407. Last EGD and colonoscopy 2007 at outside facility endorsed to be normal. [facility] 06/2017 Abdominal pain with colitis treated with maxipime and flagyl PMH Chronic neck/pain on oxycodone Hypertension Asthma, COPD Colon cancer s/p subtotal colectomy 1989 (no chemoradiation) Pancreatic cancer s/p Whipple's 1990 DM2, A1C 12.8 (06/2017), Hx DKA Complicated by gastroparesis, retinopathy, polyneuropathy PSH Cholecystectomy, Whipple's ([facility]), subtotal colectomy, surgical /umbilical (?) hernia repair, , tubal ligation gluteal abscess I&D 2016 Mother and aunt - lung cancer Uncle - pancreatic cancer, Dx over 60 years of age Brother - colon cancer, diagnosed before 50 years of age SH 20 pack years, active smoker Gisselle (last used January 2017) Denies alchohol retired, 4 children Allergy IODINE - rash Codeine - rash tylenol - rash Med Enalapril, simvastatin Pepcid 40 QD, Omeprazole 20 daily, Reglan 10 BID Zofran PRN Metformin 1000 BID, Januvia 50 qd, Lantus 15 HS, Hydroxyzine, Metaxalone, oxycontin 160 BID, oxyxodone 80Q12 PM[address] Dr[address] Mcclendon Outpt GI: Dr. Jackie Ricketts, pancreatic surgeon Med Onc:, [facility] Past Patient History - Infectious Disease Hx of Infectious Diseases: None - Tetanus Immunizations Tetanus Immunization: Unknown - Past Social History Smoking Status: Current Some Days Smoker - CARDIAC Hx Hypertension: Yes - PULMONARY Hx Chronic Obstructive Pulmonary Disease (COPD): Yes - NEUROLOGICAL Hx Neurological Disorder: No - HEENT Hx HEENT Problems: No - RENAL Hx Chronic Kidney Disease: No - ENDOCRINE/METABOLIC Hx Diabetes Mellitus Type 1: Yes - HEMATOLOGICAL/ONCOLOGICAL Hx Cancer: Yes (Colon) Other/Comment: colon ca - INTEGUMENTARY Hx Dermatological Problems: No - MUSCULOSKELETAL/RHEUMATOLOGICAL Hx Falls: Yes - GASTROINTESTINAL Hx Gastroesophageal Reflux: Yes - GENITOURINARY/GYNECOLOGICAL Hx Genitourinary Disorders: No - PSYCHIATRIC Hx Psychophysiologic Disorder: No Hx Substance Use: No (use treatment) - SURGICAL HISTORY Hx Tubal Ligation: Yes Other/Comment: CA Colon - whipple,CESEREAN X 1 - ANESTHESIA Hx Anesthesia: Yes Hx Anesthesia Reactions: No Hx Malignant Hyperthermia: No Meds Allergies/Adverse Reactions: Allergies Allergy/AdvReac Type Severity Reaction Status Date / Time acetaminophen Allergy RASH Verified 08/17/17 06:36 codeine Allergy RASH Verified 08/17/17 06:36 iodine Allergy RASH Verified 08/17/17 06:36 - Medications Medications: Current Medications Sodium Chloride (Sodium Chloride 0.9%) 1,000 mls @ 100 mls/hr IV .Q10H [facility] Last Admin: 08/17/17 18:38 Dose: 100 mls/hr Insulin Human Regular (Humulin R High) 0 units SC ACHS [facility] PRN Reason: Protocol Last Admin: 08/17/17 22:24 Dose: 2 units Ketorolac Tromethamine (Toradol) 30 mg IVP Q6H PRN PRN Reason: Pain, moderate (4-7) Last Admin: 08/18/17 02:01 Dose: 30 mg Lisinopril (Zestril) 5 mg PO DAILY [facility] Ondansetron HCl (Zofran Inj) 4 mg IVP Q4H PRN PRN Reason: Nausea/Vomiting Last Admin: 08/18/17 06:46 Dose: 4 mg Pantoprazole Sodium (Protonix Inj) 40 mg IVP 0600 [facility] Last Admin: 08/18/17 06:42 Dose: 40 mg Physical Exam - Head Exam Head Exam: ATRAUMATIC, NORMAL INSPECTION, NORMOCEPHALIC - Eye Exam Eye Exam: EOMI, Normal appearance, PERRL. absent: Scleral icterus Pupil Exam: NORMAL ACCOMODATION - ENT Exam ENT Exam: Mucous Membranes Moist - Neck Exam Additional comments: supple - Respiratory Exam Respiratory Exam: Clear to Auscultation Bilateral. absent: Rales, Rhonchi, Wheezes - Cardiovascular Exam Cardiovascular Exam: REGULAR RHYTHM, +S1, +S2 - GI/Abdominal Exam GI & Abdominal Exam: Soft, Tenderness (mild, diffuse, worse in LUQ). absent: Guarding, Rigid Additional comments: negative mueller, rovsing negative suprapubic - Extremities Exam Extremities exam: Positive for: normal capillary refill. Negative for: calf tenderness - Back Exam Back exam: absent: CVA tenderness (L), CVA tenderness (R) - Neurological Exam Neurological exam: Alert, Oriented x3 - Psychiatric Exam Psychiatric exam: Normal Affect, Normal Mood - Skin Skin Exam: Dry, Warm Results - Vital Signs Recent Vital Signs: Last Vital Signs Temp 98.1 F 08/18/17 07:30 Pulse 49 L 08/18/17 07:30 Resp 18 08/18/17 07:30 BP 156/68 H 08/18/17 07:30 Pulse Ox 99 08/18/17 07:30 - Labs Result Diagrams: 08/18/17 07:00 08/18/17 07:00 Labs: Laboratory Results - last 24 hr 08/17/17 08/17/17 08/17/17 18:21 19:14 22:05 WBC 4.2 L RBC 4.79 Hgb 12.9 Hct 38.4 MCV 80.2 MCH 26.9 MCHC 33.6 RDW 13.3 Plt Count 215 MPV 9.7 Gran % 50.8 Lymph % (Auto) 42.0 H Alcorn % (Auto) 6.8 H Eos % (Auto) 0.2 L Baso % (Auto) 0.2 Gran # 2.15 Lymph # 1.8 Alcorn # 0.3 Eos # 0.0 Baso # 0.01 Sodium 137 Potassium 4.0 Chloride 100 Carbon Dioxide 22 Anion Gap 19 BUN 16 Creatinine 0.6 L Est GFR ( Amer) > 60 Est GFR (Non-Af Amer) > 60 POC Glucose (mg/dL) 324 H Random Glucose 294 H Calcium 9.5 Total Bilirubin 0.6 AST 14 ALT 26 Alkaline Phosphatase 111 Total Protein 6.7 Albumin 4.1 Globulin 2.7 Albumin/Globulin Ratio 1.5 Lipase 30 08/18/17 08/18/17 07:00 07:00 WBC 6.0 D RBC 4.59 Hgb 12.1 Hct 37.0 MCV 80.6 MCH 26.4 MCHC 32.7 RDW 13.5 Plt Count 228 MPV 9.9 Gran % Lymph % (Auto) Alcorn % (Auto) Eos % (Auto) Baso % (Auto) Gran # Lymph # Alcorn # Eos # Baso # Sodium 139 Potassium 4.0 Chloride 105 Carbon Dioxide 21 Anion Gap 17 BUN 18 Creatinine 0.7 Est GFR ( Amer) > 60 Est GFR (Non-Af Amer) > 60 POC Glucose (mg/dL) Random Glucose 320 H* Calcium 9.3 Total Bilirubin 0.8 AST 16 ALT 32 Alkaline Phosphatase 107 Total Protein 6.5 Albumin 3.9 Globulin 2.6 Albumin/Globulin Ratio 1.5 Lipase Assessment & Plan - Assessment and Plan (Free Text) Plan: nausea and vomiting 2/2 gastroparesis likely as whipple complication or diabetes FHx of colon cancer in 1st degree relative Hx Colon cancer s/p subtotal colectomy 1989 (no chemoradiation) Hx Pancreatic cancer s/p Whipple's 1990 DM2, A1C 12.8 (06/2017), Hx DKA Supportive: glycemic control, minimize narcotics, antiemetics, prokinetics PRN Protonix 40 QD Trial clear liquid diet, advance as tolerated to low fat, carb consist, frequent small frequent meal Added bowel regimen: miralax BID and sennoside HS. Need to continue bowel regimen outpatient Elective colonoscopy for CRC monitoring Consider diabetes education and endocrinology consult for better sugar control Counter Person on medication compliance s/r/d/w Dr. Owen - Date & Time Date: 08/18/17 Time: 08:58 <Steven Owen MD - Last Filed: 08/18/17 20:07> Meds - Medications Medications: Current Medications Sodium Chloride (Sodium Chloride 0.9%) 1,000 mls @ 100 mls/hr IV .Q10H [facility] Last Admin: 08/18/17 10:28 Dose: 100 mls/hr Insulin Detemir (Levemir) 7 unit SC QAM [facility] Last Admin: 08/18/17 10:30 Dose: 7 unit Insulin Detemir (Levemir) 8 unit SC HS [facility] Insulin Human Regular (Humulin R High) 0 units SC ACHS [facility] PRN Reason: Protocol Last Admin: 08/18/17 17:12 Dose: 2 units Ketorolac Tromethamine (Toradol) 30 mg IVP Q6H PRN PRN Reason: Pain, moderate (4-7) Last Admin: 08/18/17 14:43 Dose: 30 mg Lisinopril (Zestril) 5 mg PO DAILY [facility] Last Admin: 08/18/17 10:32 Dose: 5 mg Morphine Sulfate (Morphine) 1 mg IVP Q3 PRN PRN Reason: MOD-PAIN Last Admin: 08/18/17 16:43 Dose: 1 mg Ondansetron HCl (Zofran Inj) 4 mg IVP Q4H PRN PRN Reason: Nausea/Vomiting Last Admin: 08/18/17 16:45 Dose: 4 mg Pantoprazole Sodium (Protonix Inj) 40 mg IVP 0600 [facility] Last Admin: 08/18/17 06:42 Dose: 40 mg Polyethylene Glycol (Miralax) 17 gm PO BID [facility] Last Admin: 08/18/17 19:27 Dose: Not Given Sennosides (Senokot Tab) 17.2 mg PO HS [facility] Results - Vital Signs Recent Vital Signs: Last Vital Signs Temp 98.7 F 08/18/17 17:37 Pulse 54 L 08/18/17 17:37 Resp 20 08/18/17 17:37 BP 129/85 10/25/17 17:37 Pulse Ox 100 08/18/17 17:37 - Labs Result Diagrams: 08/18/17 07:00 08/18/17 07:00 Labs: Laboratory Results - last 24 hr 08/18/17 16:22 POC Glucose (mg/dL) 188 H Attending/Attestation - Attestation I have personally seen and examined this patient.: Yes I have fully participated in the care of the patient.: Yes I have reviewed all pertinent clinical information: Yes Notes (Text): 08/18/17 19:50 52 years old female with PMHx chronic pain on oxycodone, HTN, asthma, colon cancer s/p subtotal colectomy, prancreatic cancer s/p Whipple's 1990, uncontrolled DM2 complicated by gastroparesis, retinopathy, polyneuropathy was sent to emergency room by [employer] for intractable vomiting. She has had constipation since past 4 days. Started on reglan for gastroparesis and bowel regimen for constipation. Had small bowel movement today. Clear liquid diet- advance as tolerated.
--- NOTE | 2017-08-18 07:48 | HP ---
HISTORY OF PRESENT ILLNESS: Marizol was seen in the Emergency Room earlier today and was sent home. Then, she went to her medical records coordinator and had some nausea and vomiting and sent her back to the Emergency Room. PAST MEDICAL HISTORY: She has a past medical history of gastroparesis, diabetes, nausea, vomiting, hypertension, COPD, asthma, colon cancer. She has GERD. She had colon cancer surgery. She had a Whipple , tubal ligation. She has diabetes in her family. SOCIAL HISTORY: She still smokes cigarettes. No alcohol, no drugs. ALLERGIES: SHE HAS ALLERGIES TO ACETAMINOPHEN, CODEINE AND IODINE. MEDICATIONS: She takes Lipitor, Zestril, oxycodone, Levaquin and Januvia. No acute vision changes or hearing changes. No sore throat. No chest pain or palpitation. No shortness of breath. She has got nausea and vomiting and some abdominal pain on and off, cramping. No diarrhea or constipation. Extremities have no pain. She is well appearing at this time in the Emergency Room, nontoxic comfortable after some Zofran. PHYSICAL EXAMINATION GENERAL: Alert and oriented x3. HEENT: Head is atraumatic and normocephalic. Extraocular muscles are intact. Pupils are equal, round, reactive to light and accommodation. Membranes are dry. NECK: Supple. HEART: Regular rate. Normal S1 and S2. LUNGS: Decreased breath sounds, but clear to auscultation bilaterally. No wheezes or rhonchi or rales. ABDOMEN: Soft and nontender. Positive bowel sounds. No guarding, no rebound, no CVA tenderness. Normal examination. EXTREMITIES: Have no edema. NEUROLOGIC: GCS is 15. Cranial nerves II through XII grossly intact. Normal speech. Alert and oriented x3. SKIN: Warm and dry. No rashes. No ulcers apparently that I can see. LYMPHATICS: Thyroid midline. No palpable lymphadenopathy appreciated. LABORATORY DATA: She had some tests. She had a 4.2 white count, 12.9 hemoglobin, 30.4 hematocrit and 215 platelets. There is no chemistry back yet. I am looking for any x-rays, none done. There is a consult with GI. She will be on n.p.o. She will be on insulin coverage, Protonix, IV fluids, Toradol for pain, Zestril and Zofran, n.p.o. except for medications and hopefully she will do well with GI tomorrow morning and hopefully she will have a peaceful evening. She is here for nausea and vomiting, sent here by the medical records coordinator for abdominal pain, rule out gastroparesis. Mayur Mcclendon DO MTDD
[2017-08-18] MEDS: Insulin Reg-HIGH-Coverage SC SCH ×4 (08:29→21:46)
[2017-08-18] MEDS ORDERED: Insulin Detemir 100 units/ml Vial (Levemir) SC SCH ×2 (10:00→22:00)
[2017-08-18] MEDS: Sodium Chloride 0.9% 1,000 ML IV SCH ×2 (10:28→20:02)
[2017-08-18] MEDS: POLYETHYLENE GLYCOL 3350 17 GM/Dose PACKET PO SCH ×2 (10:32→19:27)
[2017-08-18] MEDS ORDERED: Morphine 2 mg/ml ISec IVP PRN (15:37)
[2017-08-18] MEDS: Morphine 4 mg/ml ISec IVP PRN ×3 (16:43→23:51)
[2017-08-18] MEDS ORDERED: INSULIN GLARGINE RECOMBINA SC SCH (22:00)
[2017-08-19] MEDS: Morphine 4 mg/ml ISec IVP PRN ×7 (02:51→21:04)
[2017-08-19] MEDS: Sodium Chloride 0.9% 1,000 ML IV SCH (06:22)
[2017-08-19 07:26] LABS: MEAN CELL VOLUME 80.4 fl (80.0-105.0); MEAN CORPUSCULAR HEMOGLOBIN 26.7 pg (25.0-35.0); MEAN CORPUSCULAR HGB CONC 33.2 g/dl (31.0-37.0); MEAN PLATELET VOLUME 9.9 fl (7.0-11.0); RED CELL DISTRIBUTION WIDTH 13.8 % (11.5-14.5)
[2017-08-19 07:37] LABS: ALB/GLOB RATIO 1.3 (1.1-1.8); ALKALINE PHOSPHATASE 91 U/L (38-126); ALT/SGPT 33 U/L (7-56); AST/SGOT 14 U/L (14-36); BILIRUBIN,TOTAL 0.6 mg/dL (0.2-1.3); BLOOD UREA NITROGEN 14 mg/dL (7-21); CALCIUM 9.1 mg/dL (8.4-10.5); CARBON DIOXIDE 25 mmol/L (21-33); CHLORIDE 107 mmol/L (95-110); GFR AFRICAN-AMERICAN > 60; SODIUM 138 mmol/L (132-148); TOTAL PROTEIN 5.9 g/dL (5.8-8.3)
--- NOTE | 2017-08-19 07:45 | CP.PCM.PN ---
<Snidhu Craig - Last Filed: 08/19/17 09:04> Subjective - Date & Time of Evaluation Date of Evaluation: 08/19/17 Time of Evaluation: 07:41 - Subjective Subjective: PGY-[address] Mejia GI progress notes Pt seen and examined. Pt vomited 3 times 1-2 hours after drinking water/juice. Pt requires morphine/toradol x 3 for abdominal pain control. Pain chronic, sharp , epigastric, but worsen after vomiting. Denies dizziness, f/c, CP, SOB. No BM Objective - Vital Signs/Intake and Output Vital Signs (last 24 hours): Temp Pulse Resp BP Pulse Ox 98.4 F 440 H 16 132/76 100 08/19/17 00:00 08/19/17 00:00 08/19/17 00:00 08/19/17 00:00 08/19/17 00:00 Intake and Output: 08/19/17 08/19/17 06:59 18:59 Intake Total 840 Output Total 0 Balance 840 - Medications Medications: Current Medications Sodium Chloride (Sodium Chloride 0.9%) 1,000 mls @ 100 mls/hr IV .Q10H [facility] Last Admin: 08/19/17 06:22 Dose: 100 mls/hr Insulin Detemir (Levemir) 7 unit SC QAM [facility] Last Admin: 08/18/17 10:30 Dose: 7 unit Insulin Detemir (Levemir) 8 unit SC HS [facility] Last Admin: 08/18/17 21:51 Dose: 8 unit Insulin Human Regular (Humulin R High) 0 units SC ACHS [facility] PRN Reason: Protocol Last Admin: 08/18/17 21:46 Dose: Not Given Ketorolac Tromethamine (Toradol) 30 mg IVP Q6H PRN PRN Reason: Pain, moderate (4-7) Last Admin: 08/18/17 22:00 Dose: 30 mg Lisinopril (Zestril) 5 mg PO DAILY [facility] Last Admin: 08/18/17 10:32 Dose: 5 mg Morphine Sulfate (Morphine) 1 mg IVP Q3 PRN PRN Reason: MOD-PAIN Last Admin: 08/19/17 06:12 Dose: 1 mg Ondansetron HCl (Zofran Inj) 4 mg IVP Q4H PRN PRN Reason: Nausea/Vomiting Last Admin: 08/19/17 02:50 Dose: 4 mg Pantoprazole Sodium (Protonix Inj) 40 mg IVP 0600 [facility] Last Admin: 08/19/17 06:22 Dose: 40 mg Polyethylene Glycol (Miralax) 17 gm PO BID [facility] Last Admin: 08/18/17 19:27 Dose: Not Given Sennosides (Senokot Tab) 17.2 mg PO HS [facility] Last Admin: 08/18/17 21:50 Dose: 17.2 mg - Labs Labs: 08/19/17 07:23 - Constitutional Appears: No Acute Distress - Head Exam Head Exam: ATRAUMATIC, NORMAL INSPECTION, NORMOCEPHALIC - Eye Exam Eye Exam: EOMI, Normal appearance, PERRL. absent: Scleral icterus Pupil Exam: NORMAL ACCOMODATION - ENT Exam ENT Exam: Mucous Membranes Moist - Respiratory Exam Respiratory Exam: Clear to Ausculation Bilateral. absent: Rales, Rhonchi, Wheezes - Cardiovascular Exam Cardiovascular Exam: REGULAR RHYTHM, +S1, +S2 - GI/Abdominal Exam GI & Abdominal Exam: Soft, Tenderness (epigastric), Normal Bowel Sounds. absent : Guarding, Rigid - Extremities Exam Extremities Exam: Normal Capillary Refill. absent: Calf Tenderness - Back Exam Back Exam: absent: CVA tenderness (L), CVA tenderness (R) - Neurological Exam Neurological Exam: Alert, Awake, Oriented x3 - Psychiatric Exam Psychiatric exam: Normal Affect, Normal Mood - Skin Skin Exam: Dry, Warm Assessment and Plan - Assessment and Plan (Free Text) Plan: 52 years old female with PMHx chronic pain on oxycodone, HTN, asthma, colon cancer s/p subtotal colectomy, prancreatic cancer s/p Whipple's 1990, uncontrolled DM2 complicated by gastroparesis, retinopathy, polyneuropathy was sent to emergency room by instructional [employer] for intractable vomiting. She has had constipation since past 4 days. nausea and vomiting 2/2 gastroparesis likely as whipple complication or diabetes FHx of colon cancer in 1st degree relative Hx Colon cancer s/p subtotal colectomy 1989 (no chemoradiation) Hx Pancreatic cancer s/p Whipple's 1990 DM2, A1C 12.8 (06/2017), Hx DKA Plan start reglan 5mg IV ACHS Supportive: glycemic control, minimize narcotics, antiemetics, prokinetics Protonix 40 QD Trial clear liquid diet, advance as tolerated to low fat, carb consist, frequent small frequent meal Added bowel regimen: miralax BID and sennoside HS. ADD DOCUSATE HS x 1 tonight Need to continue bowel regimen outpatient Elective colonoscopy for CRC monitoring Consider diabetes education and endocrinology consult for better sugar control [employer] on medication compliance s/r/w/d Dr. Mejia <Gerber Mejia - Last Filed: 08/19/17 10:16> Objective - Vital Signs/Intake and Output Vital Signs (last 24 hours): Temp Pulse Resp BP Pulse Ox 98.2 F 60 18 177/79 H 96 08/19/17 07:30 08/19/17 09:05 08/19/17 07:30 08/19/17 09:05 08/19/17 07:30 Intake and Output: 08/19/17 08/19/17 06:59 18:59 Intake Total 3240 Output Total 0 Balance 3240 - Medications Medications: Current Medications Sodium Chloride (Sodium Chloride 0.9%) 1,000 mls @ 100 mls/hr IV .Q10H [facility] Last Admin: 08/19/17 06:22 Dose: 100 mls/hr Insulin Detemir (Levemir) 10 unit SC QAM [facility] Last Admin: 08/19/17 09:05 Dose: 10 unit Insulin Detemir (Levemir) 10 unit SC HS [facility] Insulin Human Regular (Humulin R High) 0 units SC ACHS [facility] PRN Reason: Protocol Last Admin: 08/19/17 08:21 Dose: 2 units Ketorolac Tromethamine (Toradol) 30 mg IVP Q6H PRN PRN Reason: Pain, moderate (4-7) Last Admin: 08/18/17 22:00 Dose: 30 mg Lisinopril (Zestril) 5 mg PO DAILY [facility] Last Admin: 08/19/17 09:05 Dose: 5 mg Metoclopramide HCl (Reglan) 5 mg IVP ACHS [facility] Morphine Sulfate (Morphine) 1 mg IVP Q3 PRN PRN Reason: MOD-PAIN Last Admin: 08/19/17 09:04 Dose: 1 mg Ondansetron HCl (Zofran Inj) 4 mg IVP Q4H PRN PRN Reason: Nausea/Vomiting Last Admin: 08/19/17 02:50 Dose: 4 mg Pantoprazole Sodium (Protonix Inj) 40 mg IVP 0600 [facility] Last Admin: 08/19/17 06:22 Dose: 40 mg Polyethylene Glycol (Miralax) 17 gm PO BID [facility] Last Admin: 08/19/17 09:05 Dose: 17 gm Sennosides (Senokot Tab) 17.2 mg PO HS [facility] Last Admin: 08/18/17 21:50 Dose: 17.2 mg - Labs Labs: 08/19/17 07:23 08/19/17 07:23 Attending/Attestation - Attestation I have personally seen and examined this patient.: Yes I have fully participated in the care of the patient.: Yes I have reviewed all pertinent clinical information, including history, physical exam and plan: Yes Notes (Text): 08/19/17 10:14 52 years old female with h/o Chronic pain on opiates, HTN, Obesity, Gastroparesis, h/o Panc ca s/p whipple, h/o colon ca s/p partial colectomy admitted with exacerbation of gastroparesis. 1. Gastroparesis Plan -recommend prokinetics as above with reglan -minimize narcotics -continue PPI -CLD, small / freq meals -bowel regimen with miralax tight glycemic control
[2017-08-19 07:51] LABS: GLUCOSE,RANDOM 362 mg/dL (70-110)
[2017-08-19] MEDS: Insulin Reg-HIGH-Coverage SC SCH ×4 (08:21→21:32)
[2017-08-19] MEDS ORDERED: Insulin Detemir 100 units/ml Vial (Levemir) SC SCH (08:45)
[2017-08-19] MEDS: Insulin Detemir 100 units/ml Vial (Levemir) SC SCH (09:05)
[2017-08-19] MEDS: POLYETHYLENE GLYCOL 3350 17 GM/Dose PACKET PO SCH ×2 (09:05→17:18)
--- NOTE | 2017-08-19 12:48 | PN ---
DATE: SUBJECTIVE: I saw Marizol resting comfortably in bed. She told me she was up all night being nauseous. IV fluids are running. She threw up last night a few times. She is on Reglan and Zofran IV. She has a plate of liquids in front of her. I told her if she could eat this and keep it down, we will try and get her some regular food for lunch; I do not know if she will make it. I think she is still dealing with abdominal pain with gastroparesis. PHYSICAL EXAMINATION: VITAL SIGNS: Temperature 98.2, pulse 43 and 54, blood pressure is 145/79, respiratory rate 18, and O2 saturation 96% to 100%. HEENT: Head is atraumatic and normocephalic. Throat moist. NECK: Supple. HEART: Regular rate. LUNGS: Decreased breath sounds, but clear. ABDOMEN: Decreased bowel sounds but present. Abdomen is very soft, nontender. Positive bowel sounds. No guarding. No rebound. EXTREMITIES: Have no edema. LABORATORY DATA: She has sodium 138, potassium is 4, BUN is 14, creatinine 0.8, GFR is greater than 60, sugar bounced to 362, I increased her insulin to 10 units at a.m. and nighttime; hopefully, it will make a bit of a difference. Calcium is 9.1, total bilirubin is 0.6, AST is 14, ALT is 33, alkaline phosphatase is 91, total protein is 5.9, albumin is 3.4. The lipase was 30. White count is 4, hemoglobin 11.3, hematocrit 34, and platelets 209. MEDICATIONS: She is currently on insulin, Levemir, MiraLax, morphine, Protonix, Reglan, Senokot, IV fluids, Toradol, Zestril, and Zofran. ASSESSMENT AND PLAN: She is being seen by GI. GI said nausea and vomiting secondary to gastroparesis, likely a Whipple complication, diabetic. She has had colon cancer, status post colectomy and chemoradiation. Continue with IV fluids. Clear fluids to try. Reglan, Zofran, and I increased her medication for the diabetes. We will watch her closely. Hopefully, in the next 24 hours, she will improve. Mayur Mcclendon DO JE
[2017-08-19] MEDS ORDERED: Bisacodyl 5mg EC Tab PO ONE (20:00)
[2017-08-20] MEDS: Morphine 4 mg/ml ISec IVP PRN ×2 (00:18→04:24)
[2017-08-20] MEDS: Sodium Chloride 0.9% 1,000 ML IV SCH (02:01)
[2017-08-20 02:12] VITALS: RESP 20; TEMP 98.4
[2017-08-20 07:29] LABS: HEMATOCRIT 36.3 % (36.0-48.0); MEAN CELL VOLUME 81.4 fl (80.0-105.0); MEAN CORPUSCULAR HEMOGLOBIN 26.9 pg (25.0-35.0); MEAN CORPUSCULAR HGB CONC 33.1 g/dl (31.0-37.0); MEAN PLATELET VOLUME 9.4 fl (7.0-11.0); RED CELL DISTRIBUTION WIDTH 13.9 % (11.5-14.5)
[2017-08-20 07:42] LABS: ALB/GLOB RATIO 1.5 (1.1-1.8); ALKALINE PHOSPHATASE 86 U/L (38-126); ALT/SGPT 29 U/L (7-56); AST/SGOT 22 U/L (14-36); BILIRUBIN,TOTAL 0.8 mg/dL (0.2-1.3); BLOOD UREA NITROGEN 10 mg/dL (7-21); CARBON DIOXIDE 22 mmol/L (21-33); CHLORIDE 107 mmol/L (98-107); GFR AFRICAN-AMERICAN > 60; GLUCOSE,RANDOM 218 mg/dL (70-110); SODIUM 140 mmol/L (132-148); TOTAL PROTEIN 6.5 g/dL (5.8-8.3)
[2017-08-20 08:35] VITALS: BP 112/64; PULSE 94; O2SAT 100
[2017-08-20] MEDS: Insulin Reg-HIGH-Coverage SC SCH (09:18)
--- NOTE | 2017-08-20 10:52 | CP.PCM.PN ---
<Monica Morris - Last Filed: 08/20/17 10:52> Subjective - Date & Time of Evaluation Date of Evaluation: 08/20/17 Time of Evaluation: 08:00 - Subjective Subjective: PGY4 GI Follow-up Pt seen and examine bedside denies any abd pain Currently denies any nausea and vomiting States she had x1 episode last night able to tolerate liquids for all meals yesterday +BM ROS: 10 point ROS conducted, neg other than above Objective - Vital Signs/Intake and Output Vital Signs (last 24 hours): Temp Pulse Resp BP Pulse Ox 98.4 F 94 H 20 112/64 100 08/20/17 08:34 08/20/17 09:19 08/20/17 08:34 08/20/17 09:19 08/20/17 08:34 Intake and Output: 08/20/17 08/20/17 06:59 18:59 Intake Total 2160 Balance 2160 - Medications Medications: Current Medications Sodium Chloride (Sodium Chloride 0.9%) 1,000 mls @ 100 mls/hr IV .Q10H COUNT INCLUDES THE [facility] Last Admin: 08/20/17 02:01 Dose: 100 mls/hr Insulin Detemir (Levemir) 10 unit SC QAM COUNT INCLUDES THE [facility] Last Admin: 08/19/17 09:05 Dose: 10 unit Insulin Detemir (Levemir) 10 unit SC HS COUNT INCLUDES THE [facility] Last Admin: 08/19/17 21:33 Dose: 10 unit Insulin Human Regular (Humulin R High) 0 units SC ACHS COUNT INCLUDES THE [facility] PRN Reason: Protocol Last Admin: 08/20/17 09:18 Dose: 4 units Ketorolac Tromethamine (Toradol) 30 mg IVP Q6H PRN PRN Reason: Pain, moderate (4-7) Last Admin: 08/20/17 06:06 Dose: 30 mg Lisinopril (Zestril) 5 mg PO DAILY COUNT INCLUDES THE [facility] Last Admin: 08/20/17 09:19 Dose: 5 mg Metoclopramide HCl (Reglan) 5 mg IVP ACHS COUNT INCLUDES THE [facility] Last Admin: 08/20/17 09:27 Dose: 5 mg Morphine Sulfate (Morphine) 1 mg IVP Q3 PRN PRN Reason: MOD-PAIN Stop: 08/21/17 16:31 Last Admin: 08/20/17 08:40 Dose: 1 mg Ondansetron HCl (Zofran Inj) 4 mg IVP Q4H PRN PRN Reason: Nausea/Vomiting Last Admin: 08/20/17 06:05 Dose: 4 mg Pantoprazole Sodium (Protonix Inj) 40 mg IVP 0600 COUNT INCLUDES THE [facility] Last Admin: 08/20/17 06:26 Dose: 40 mg Polyethylene Glycol (Miralax) 17 gm PO BID COUNT INCLUDES THE [facility] Last Admin: 08/19/17 17:18 Dose: 17 gm Sennosides (Senokot Tab) 17.2 mg PO HS COUNT INCLUDES THE [facility] Last Admin: 08/19/17 21:10 Dose: 17.2 mg - Labs Labs: 08/20/17 07:24 08/20/17 07:24 - Constitutional Appears: Well, No Acute Distress - Head Exam Head Exam: ATRAUMATIC, NORMOCEPHALIC - Eye Exam Eye Exam: Normal appearance - ENT Exam ENT Exam: Mucous Membranes Moist - Respiratory Exam Respiratory Exam: Clear to Ausculation Bilateral, NORMAL BREATHING PATTERN. absent: Rales, Rhonchi, Wheezes, Respiratory Distress - Cardiovascular Exam Cardiovascular Exam: REGULAR RHYTHM, +S1, +S2 - GI/Abdominal Exam GI & Abdominal Exam: Soft, Normal Bowel Sounds - Extremities Exam Extremities Exam: absent: Joint Swelling, Pedal Edema - Back Exam Back Exam: NORMAL INSPECTION - Neurological Exam Neurological Exam: Alert, Awake, Oriented x3 - Psychiatric Exam Psychiatric exam: Normal Affect, Normal Mood - Skin Skin Exam: Dry, Intact, Normal Color, Warm Assessment and Plan - Assessment and Plan (Free Text) Assessment: 52 years old female with PMHx chronic pain on oxycodone, HTN, asthma, colon cancer s/p subtotal colectomy, prancreatic cancer s/p Whipple's 1990, uncontrolled DM2 complicated by gastroparesis, retinopathy, polyneuropathy was sent to emergency room by rn admit for intractable vomiting. She has had constipation since past 4 days. nausea and vomiting 2/2 gastroparesis likely as whipple complication or diabetes FHx of colon cancer in 1st degree relative Hx Colon cancer s/p subtotal colectomy 1989 (no chemoradiation) Hx Pancreatic cancer s/p Whipple's 1990 DM2, A1C 12.8 (06/2017), Hx DKA Plan Continue reglan 5mg PO ACHS Supportive: glycemic control, minimize narcotics, antiemetics, prokinetics Protonix 40 QD advance to reg diet Continue miralax BID and sennoside HS. 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 Rincon and Stef <Martinez Rincon Y - Last Filed: 08/20/17 12:06> Objective - Vital Signs/Intake and Output Vital Signs (last 24 hours): Temp Pulse Resp BP Pulse Ox 98.4 F 94 H 20 112/64 100 08/20/17 08:34 08/20/17 09:19 08/20/17 08:34 08/20/17 09:19 08/20/17 08:34 Intake and Output: 08/20/17 08/20/17 06:59 18:59 Intake Total 2160 Balance 2160 - Medications Medications: Current Medications Sodium Chloride (Sodium Chloride 0.9%) 1,000 mls @ 100 mls/hr IV .Q10H COUNT INCLUDES THE [facility] Last Admin: 08/20/17 02:01 Dose: 100 mls/hr Insulin Detemir (Levemir) 10 unit SC QAM COUNT INCLUDES THE [facility] Last Admin: 08/20/17 10:56 Dose: Not Given Insulin Detemir (Levemir) 10 unit SC HS COUNT INCLUDES THE [facility] Last Admin: 08/19/17 21:33 Dose: 10 unit Insulin Human Regular (Humulin R High) 0 units SC ACHS COUNT INCLUDES THE [facility] PRN Reason: Protocol Last Admin: 08/20/17 09:18 Dose: 4 units Ketorolac Tromethamine (Toradol) 30 mg IVP Q6H PRN PRN Reason: Pain, moderate (4-7) Last Admin: 08/20/17 06:06 Dose: 30 mg Lisinopril (Zestril) 5 mg PO DAILY COUNT INCLUDES THE [facility] Last Admin: 08/20/17 09:19 Dose: 5 mg Metoclopramide HCl (Reglan) 5 mg IVP ACHS COUNT INCLUDES THE [facility] Last Admin: 08/20/17 09:27 Dose: 5 mg Morphine Sulfate (Morphine) 1 mg IVP Q3 PRN PRN Reason: MOD-PAIN Stop: 08/21/17 16:31 Last Admin: 08/20/17 08:40 Dose: 1 mg Ondansetron HCl (Zofran Inj) 4 mg IVP Q4H PRN PRN Reason: Nausea/Vomiting Last Admin: 08/20/17 06:05 Dose: 4 mg Pantoprazole Sodium (Protonix Inj) 40 mg IVP 0600 COUNT INCLUDES THE [facility] Last Admin: 08/20/17 06:26 Dose: 40 mg Polyethylene Glycol (Miralax) 17 gm PO BID COUNT INCLUDES THE [facility] Last Admin: 08/20/17 10:57 Dose: Not Given Sennosides (Senokot Tab) 17.2 mg PO HS COUNT INCLUDES THE [facility] Last Admin: 08/19/17 21:10 Dose: 17.2 mg - Labs Labs: 08/20/17 07:24 08/20/17 07:24 Attending/Attestation - Attestation I have personally seen and examined this patient.: Yes I have fully participated in the care of the patient.: Yes I have reviewed all pertinent clinical information, including history, physical exam and plan: Yes Notes (Text): 08/20/17 12:02 I have seen and examined patient with GI fellow. No acute events overnight. She is seen sitting at bedside, appears comfortable. She endorses one episode of emesis overnight, but denies abdominal pain, fever/chills. She was able to tolerate breakfast today without difficulty. Review of vitals from today shows tachycardia. HTN Asthma Obesity History of colon and pancreatic cancer s/p subtotal colectomy, whipple Uncontrolled DM, gastroparesis Nausea, vomiting - resolved - Advance diet slowly as tolerated - Patient requires strict glycemic control - Anti-emetic therapy PRN - Maintain bowel regimen to prevent recurrent constipation - If patient tolerating PO diet, from GI standpoint ok to discharge home with subsequent outpatient [place] [facility] [place] Will sign off case, please reconsult as necessary. Discussed with Dr. Mcclendon.
[2017-08-20] MEDS: Insulin Detemir 100 units/ml Vial (Levemir) SC SCH (10:56)
[2017-08-20] MEDS: POLYETHYLENE GLYCOL 3350 17 GM/Dose PACKET PO SCH (10:57)
--- NOTE | 2017-08-20 19:05 | DS ---
HISTORY OF PRESENT ILLNESS: She is sitting up in bed. She is eating better. No more nausea or vomiting. GI said she can leave. I discussed it with the machine splitter. She will go home on her regular medications Levemir, MiraLax, Protonix, Reglan, Senokot, Zestril, she has Zofran. PHYSICAL EXAMINATION: VITAL SIGNS: She has a 98.4 temperature, 94 pulse, 112/64 blood pressure, 20 respiratory rate, 100% O2 sat on room air. HEENT: Head is atraumatic and normocephalic. HEART: Regular rate. LUNGS: Clear to auscultation. ABDOMEN: Soft. Positive bowel sounds, nontender. EXTREMITIES: No edema. LABORATORY DATA: She has a 4 white count, 12 hemoglobin, 36.3 hematocrit with 198 platelets. 140 sodium, potassium is 4, BUN is 10, creatinine 0.7, GFR is greater than 60, sugar is down to 218, better. Calcium is 9, total bilirubin is 0.8, AST is 22, ALT is 29, alkaline phosphatase is 86, total protein is 6.5. PLAN: So, I will discuss this with Gastroenterology, they are happy with her. She will be able to be discharged today. She will go home on her same medications that she came in from home with and should be following up with on the outpatient. This is a discharge on Marizol Parker who had a gastroparesis, abdominal pain, diabetes. Mayur Mcclendon DO [email or web address]
== END 2017-08-20 13:30 | disposition home or self-care (01) | DRG 74 ==
LOC: ED 17:35 → ERH 17:44 → 5RSO 20:50 → OBSVTOIN 08-18 15:32
PROVIDERS: ADMIT Family Medicine; ATTEND Family Medicine
DX: E11.43 Type 2 diabetes mellitus with diabetic autonomic (poly)neuropathy (principal); K31.84 Gastroparesis; I10 Essential (primary) hypertension; J44.9 Chronic obstructive pulmonary disease, unspecified; E11.42 Type 2 diabetes mellitus with diabetic polyneuropathy; E11.319 Type 2 diabetes mellitus with unspecified diabetic retinopathy without macular edema; K21.9 Gastro-esophageal reflux disease without esophagitis; F17.210 Nicotine dependence, cigarettes, uncomplicated; G89.29 Other chronic pain; K59.00 Constipation, unspecified; E66.9 Obesity, unspecified; Z79.891 Long term (current) use of opiate analgesic; Z85.07 Personal history of malignant neoplasm of pancreas; Z85.038 Personal history of other malignant neoplasm of large intestine; Z90.411 Acquired partial absence of pancreas; Z90.49 Acquired absence of other specified parts of digestive tract; Z98.51 Tubal ligation status; Z83.3 Family history of diabetes mellitus

== ENCOUNTER 2017-08-21 04:56 | Observation (INO) | payer BC, OTHER ==
[2017-08-21 04:57] VITALS: BMI 34.3
[2017-08-21] MEDS ORDERED: HYDROmorphone 1 mg/ml ISec IVP STA (05:18)
[2017-08-21] MEDS ORDERED: Sodium Chloride 0.9% 1,000 ML IV STA (05:18)
--- NOTE | 2017-08-21 05:29 | ED PDOC ---
Arrival/HPI <Ruben Varela - Last Filed: 08/21/17 05:41> - General Historian: Patient - History of Present Illness Time/Duration: 4-6 hours Symptom Onset: Sudden Symptom Course: Intermittent Quality: Cramping Severity Level: Mild, Moderate Activities at Onset: Rest Context: Home <Jess Gasca - Last Filed: 08/21/17 06:31> - General Chief Complaint: GI Problem Time Seen by Provider: 08/21/17 04:58 - History of Present Illness Narrative History of Present Illness (Text): 08/21/17 05:25 52F w/PMH sig for DM, gastroparesis evaluate for emesis x 4 & intractable nausea. Pt discharged from hospital on 08/20 for the same, was tolerating a diet. Went home, ate fish for lunch and dinner. Took Reglan at 5pm on 08/20. Went to bed at approximately 11pm, woke up at 1am with nausea, took Zofran, had emesis. Continued to feel nauseous, had 3 more episodes of emesis prior to calling EMS. Admits to chills, diffuse, constant mid abdominal pain that radiates to low back, chronic low back pain and chronic neck pain on pain regimen at home. Denies fevers, changes in bowel or bladder habits, other complaints. PMH: Gastroparesis, HTN, DM, COPD, Colon CA PSH: Whipple, x 1 All: Acetaminophen, Codeine, Iodine SH: Smokes tobacco, denies ETOH or illicit drug use PMD: Mcclendon (Jess Gasca) Associated Symptoms (Text): 08/21/17 05:29 chills (Jess Gasca) Past Medical History - Provider Review Nursing Documentation Reviewed: Yes - Infectious Disease Hx of Infectious Diseases: None - Tetanus Immunization Tetanus Immunization: Unknown - Cardiac Hx Cardiac Disorders: Yes Hx Hypertension: Yes - Pulmonary Hx Asthma: Yes Hx Chronic Obstructive Pulmonary Disease (COPD): Yes - Neurological Hx Neurological Disorder: No - HEENT Hx HEENT Disorder: No - Renal Hx Renal Disorder: No - Endocrine/Metabolic Hx Diabetes Mellitus Type 1: Yes - Hematological/Oncological Hx Cancer: Yes (Colon) Other/Comment: colon ca - Integumentary Hx Dermatological Disorder: No - Musculoskeletal/Rheumatological Hx Musculoskeletal Disorders: No Hx Falls: No - Gastrointestinal Hx Gastrointestinal Disorders: Yes Hx Gastroesophageal Reflux: Yes Other/Comment: colon ca with surgery - Genitourinary/Gynecological Hx Genitourinary Disorders: No - Psychiatric Hx Psychophysiologic Disorder: No Hx Substance Use: No (use treatment) - Surgical History Hx Tubal Ligation: Yes Other/Comment: CA Colon - whipple,CESEREAN X 1 - Anesthesia Hx Anesthesia: No Hx Anesthesia Reactions: No Hx Malignant Hyperthermia: No - Suicidal Assessment Feels Threatened In Home Enviroment: No <Jess Gasca - Last Filed: 08/21/17 06:31> Family/Social History - Physician Review Nursing Documentation Reviewed: Yes Family/Social History: No Known Family HX Smoking Status: Light Smoker < 10 Cigarettes Daily Hx Alcohol Use: No Hx Substance Use: No (use treatment) Hx Substance Use Treatment: Yes <Jess Gasca - Last Filed: 08/21/17 06:31> Allergies/Home Meds <Ruben Varela - Last Filed: 08/21/17 05:41> <Jess Gasca - Last Filed: 08/21/17 06:31> Allergies/Adverse Reactions: Allergies codeine Allergy (Verified 08/21/17 05:10) VOMITING iodine Allergy (Verified 08/21/17 05:10) RASH Home Medications: Home Meds Medication Instructions Recorded Confirmed Metaxalone [Metaxall] 800 mg PO QID 07/22/17 08/21/17 Oxycodone HCl [Oxycodone HCl ER] 80 mg PO Q12 07/22/17 08/21/17 SITagliptin [Januvia] 50 mg PO DAILY 07/22/17 08/21/17 Enalapril Maleate [Vasotec] 5 mg PO DAILY 08/17/17 08/21/17 Famotidine [Pepcid] 40 mg PO DAILY 08/17/17 08/21/17 Hydroxyzine Pamoate 100 mg PO DAILY 08/17/17 08/21/17 Insulin Glargine, Recombina 15 units SC HS 08/17/17 08/21/17 [Lantus] MetFORMIN [glucoPHAGE] 1,000 mg PO BID 08/17/17 08/21/17 Metoclopramide HCl [Reglan] 10 mg PO BID 08/17/17 08/21/17 Omeprazole 20 mg PO DAILY 08/17/17 08/21/17 Ondansetron ODT [Zofran ODT] 4 mg PO Q6H PRN 08/17/17 08/21/17 Oxycodone HCl [Oxycontin] 160 mg PO BID 08/17/17 08/21/17 Pantoprazole Sodium [Protonix] 40 mg PO DAILY 08/17/17 08/21/17 Potassium Chloride [Klor-Con] 20 meq PO DAILY 08/17/17 08/21/17 Simvastatin [Zocor] 20 mg PO DAILY 08/17/17 08/21/17 Review of Systems - Physician Review All systems were reviewed & negative as marked: Yes - Review of Systems Constitutional: Normal. absent: Fevers Eyes: Normal. absent: Vision Changes ENT: Normal. absent: Sore Throat Respiratory: Normal. absent: SOB Cardiovascular: Normal. absent: Chest Pain Gastrointestinal: Abdominal Pain, Nausea, Vomiting, Food Intolerance. absent: Normal, Constipation, Diarrhea, Hematochezia, Hematemesis Genitourinary Female: Normal Musculoskeletal: Back Pain (chronic, low), Neck Pain (chronic) Skin: Normal. absent: Rash Neurological: Normal. absent: Headache <Gasca,[place] - Last Filed: 08/21/17 06:31> Physical Exam Vital Signs Reviewed: Yes Temperature: Afebrile Blood Pressure: Hypertensive Pulse: Regular Respiratory Rate: Normal Appearance: Positive for: Non-Toxic, Uncomfortable Pain Distress: None Mental Status: Positive for: Alert and Oriented X 3 - Systems Exam Head: Present: Atraumatic, Normocephalic Extroacular Muscles: Present: EOMI Mouth: Present: Moist Mucous Membranes Nose (External): Present: Atraumatic Neck: Present: Normal Range of Motion Respiratory/Chest: Present: Clear to Auscultation, Good Air Exchange. No: Respiratory Distress, Accessory Muscle Use Cardiovascular: Present: Regular Rate and Rhythm, Normal S1, S2. No: Murmurs Abdomen: Present: Tenderness (mild diffuse/middle), Scars (well healed midline scar). No: Distention (obese), Normal Bowel Sounds (decreased), Peritoneal Signs, Hernias Upper Extremity: Present: Normal Inspection. No: Cyanosis, Edema Lower Extremity: Present: Normal Inspection. No: Edema Neurological: Present: GCS=15, CN II-XII Intact, Speech Normal Skin: Present: Warm, Dry, Normal Color. No: Rashes Psychiatric: Present: Alert, Oriented x 3, Normal Insight, Normal Concentration <Jess Gasca - Last Filed: 08/21/17 06:31> Vital Signs Temp Pulse Resp BP Pulse Ox 08/21/17 05:08 98.2 F 43 L 16 151/61 H 100 Medical Decision Making <Ruben Varela - Last Filed: 08/21/17 05:41> <Jess Gasca - Last Filed: 08/21/17 06:31> ED Course and Treatment: Impression: Pt seen and evaluated with medical record coder. Pt, whose past medical history includes gastroparesis, hypertension, diabetes, and COPD, presnted for mid- abdominal pain, nausea, and vomitign. Aware and agree with HPI, clinical findings, plan, and management. Plan: -- Labs, lipase -- IV fluids -- Zofran -- Dilaudid -- Reassess and disposition (Ruben Varela) 08/21/17 05:33 Pt seen/evaluated, case DW ED attending- will work up for abdominal pain, give anti-emetics, IVF and pain medication. 08/21/17 06:[address] Mcclendon's service. 08/21/17 06:[address] Mcclendon who accepts pt to his service for gastroparesis. (Jess Gasca) - Medication Orders Current Medication Orders: Discontinued Medications Hydromorphone HCl (Dilaudid) 1 mg IVP STAT STA Stop: 08/21/17 05:19 Sodium Chloride (Sodium Chloride 0.9%) 1,000 mls @ 999 mls/hr IV .Q1H1M STA Stop: 08/21/17 06:18 Ondansetron HCl (Zofran Inj) 4 mg IVP STAT STA Stop: 08/21/17 05:19 - PA / TOP SPOTTER / Resident Statement / has reviewed & agrees with the documentation as recorded. / has examined the patient and agrees with the treatment plan. <Ruben Varela - Last Filed: 08/21/17 05:41> Disposition/Present on Arrival <Ruben Varela - Last Filed: 08/21/17 05:41> - Present on Arrival Any Indicators Present on Arrival: No History of DVT/PE: No History of Uncontrolled Diabetes: No Urinary Catheter: No History of Decub. Ulcer: No History Surgical Site Infection Following: None - Disposition Have Diagnosis and Disposition been Completed?: Yes Disposition Time: 06:31 Patient Plan: Observation <Jess Gasca - Last Filed: 08/21/17 06:31> - Disposition Diagnosis: Intractable vomiting with nausea Disposition: HOSPITALIZED Patient Problems: Current Active Problems Problem Status Onset Intractable vomiting with nausea Acute Condition: FAIR Referrals: Ronnell Sue MD [Primary Care Provider] - Follow up with primary Forms: [employer] ([place]ese)
[2017-08-21 06:33] LABS: ALB/GLOB RATIO 1.6 (1.1-1.8); ALKALINE PHOSPHATASE 109 U/L (38-126); ALT/SGPT 30 U/L (7-56); AST/SGOT 16 U/L (14-36); BILIRUBIN,TOTAL 0.8 mg/dL (0.2-1.3); BLOOD UREA NITROGEN 8 mg/dL (7-21); CALCIUM 9.9 mg/dL (8.4-10.5); CARBON DIOXIDE 24 mmol/L (21-33); CHLORIDE 105 mmol/L (98-107); GFR AFRICAN-AMERICAN > 60; LIPASE 49 U/L (23-300); POTASSIUM 4.2 mmol/L (3.6-5.0); SODIUM 139 mmol/L (132-148); TOTAL PROTEIN 6.6 g/dL (5.8-8.3)
[2017-08-21] MEDS ORDERED: Insulin Lispro 1 UNITS/0.01 ML SC ONE (06:52)
[2017-08-21 06:53] LABS: GLUCOSE,RANDOM 409 mg/dL (70-110)
[2017-08-21] MEDS ORDERED: Insulin Regular 1 UNITS/0.01 ML ML ONE (06:54)
[2017-08-21] MEDS ORDERED: Insulin Regular 1 UNITS/0.01 ML ML SC ONE (06:58)
[2017-08-21 07:04] LABS: BASO # 0.01 K/mm3 (0.0-2.0); BASO % 0.3 % (0.0-3.0); EOS % 0.6 % (1.5-5.0); GRAN # 1.98 (1.4-6.5); GRAN % 56.7 % (50.0-68.0); HEMATOCRIT 39.7 % (36.0-48.0); LYMPH # 1.3 (1.2-3.4); LYMPH % 36.4 % (22.0-35.0); MEAN CELL VOLUME 80.4 fl (80.0-105.0); MEAN CORPUSCULAR HEMOGLOBIN 26.5 pg (25.0-35.0); MEAN PLATELET VOLUME 9.8 fl (7.0-11.0); MONO # 0.2 (0.1-0.6); WHITE BLOOD COUNT 3.5 10^3/ul (4.5-11.0)
--- NOTE | 2017-08-21 08:28 | CP.PCM.CON ---
<Nidia Burkett - Last Filed: 08/21/17 12:57> History of Present Illness - History of Present Illness History of Present Illness: Gastroenterology Fellow/PGY5 Consult Note 52 year old female with history of chronic neck/back pain on oxycodone, Hypertension, asthma, colon cancer s/p subtotal colectomy 1989 (no chemoradiation), pancreatic cancer s/p Whipple's 1990, and uncontrolled Type 2 Diabetes complicated by retinopathy, polyneuropathy, and Gastroparesis presenting with vomiting and epigastric pain. Recent discharge 08/20 for intractable nausea/vomiting and constipation. Patient notes she felt well yesterday evening and tolerated supper without issue. She remained upright for two hours after oral intake. Subsequently began to not feel well at 10PM. Awoke at 1PM with epigastric pain and one bilious vomitus followed by three additional episodes at 3AM leading to ER presentation. Admits to one formed bowel movement yesterday evening. Denies bloating, indigestion, acid reflux, hematemesis, constipation, melena, or hematochezia. Last EGD and colonoscopy 2007 at outside facility endorsed to be normal. Family-Mother and aunt-lung cancer, uncle-pancreatic cancer diagnosed over 60 years of age, brother- colon cancer- diagnosed before 50 years of age Social- 20 pack years, marijuana use(endorsed cessation since January 2017) denies alcohol use Surgery- Whipple's, subtotal colectomy, hernia repair, , gluteal abscess I&D february 2017 Review of Systems - Review of Systems Review of Systems: 12-point review of systems negative except for as above Past Patient History - Infectious Disease Hx of Infectious Diseases: None - Tetanus Immunizations Tetanus Immunization: Unknown - Past Social History Smoking Status: Light Smoker < 10 Cigarettes Daily - CARDIAC Hx Cardiac Disorders: Yes Hx Hypertension: Yes - PULMONARY Hx Asthma: Yes Hx Chronic Obstructive Pulmonary Disease (COPD): Yes - NEUROLOGICAL Hx Neurological Disorder: No - HEENT Hx HEENT Problems: No - RENAL Hx Chronic Kidney Disease: No - ENDOCRINE/METABOLIC Hx Diabetes Mellitus Type 1: Yes - HEMATOLOGICAL/ONCOLOGICAL Hx Cancer: Yes (Colon) Other/Comment: colon ca - INTEGUMENTARY Hx Dermatological Problems: No - MUSCULOSKELETAL/RHEUMATOLOGICAL Hx Musculoskeletal Disorders: No Hx Falls: No - GASTROINTESTINAL Hx Gastrointestinal Disorders: Yes Hx Gastroesophageal Reflux: Yes Other/Comment: colon ca with surgery - GENITOURINARY/GYNECOLOGICAL Hx Genitourinary Disorders: No - PSYCHIATRIC Hx Psychophysiologic Disorder: No Hx Substance Use: No (use treatment) - SURGICAL HISTORY Hx Tubal Ligation: Yes Other/Comment: CA Colon - whipple,CESEREAN X 1 - ANESTHESIA Hx Anesthesia: No Hx Anesthesia Reactions: No Hx Malignant Hyperthermia: No Meds Allergies/Adverse Reactions: Allergies Allergy/AdvReac Type Severity Reaction Status Date / Time codeine Allergy VOMITING Verified 08/21/17 05:10 iodine Allergy RASH Verified 08/21/17 05:10 Physical Exam - Constitutional Appears: Non-toxic, No Acute Distress - Head Exam Head Exam: ATRAUMATIC, NORMOCEPHALIC - Eye Exam Eye Exam: EOMI, PERRL Pupil Exam: PERRL. absent: Miosis, Mydriatic - ENT Exam ENT Exam: Mucous Membranes Moist, Normal Oropharynx - Neck Exam Neck exam: Positive for: Full Rom, Normal Inspection - Respiratory Exam Respiratory Exam: Clear to Auscultation Bilateral. absent: Rales, Rhonchi, Wheezes - Cardiovascular Exam Cardiovascular Exam: RRR, +S1, +S2. absent: Gallop, Rubs - GI/Abdominal Exam GI & Abdominal Exam: Normal Bowel Sounds, Soft, Tenderness. absent: Distended, Firm, Guarding, Organomegaly, Rebound, Rigid Additional comments: mild epigastric tenderness to palpation - Extremities Exam Extremities exam: Positive for: full ROM. Negative for: pedal edema - Neurological Exam Neurological exam: Alert - Psychiatric Exam Psychiatric exam: Normal Affect, Normal Mood - Skin Skin Exam: Dry, Intact, Normal Color Results - Vital Signs Recent Vital Signs: Last Vital Signs Temp 98.9 F 08/21/17 07:10 Pulse 45 L 08/21/17 07:10 Resp 18 08/21/17 07:10 BP 154/72 H 08/21/17 07:10 Pulse Ox 96 08/21/17 07:10 - Labs Result Diagrams: 08/21/17 06:15 08/21/17 06:15 Assessment & Plan - Assessment and Plan (Free Text) Assessment: 52 year old female with history of chronic neck/back pain on oxycodone, Hypertension, asthma, colon cancer s/p subtotal colectomy 1989 (no chemoradiation), pancreatic cancer s/p Whipple's 1990, and uncontrolled T2DM complicated by retinopathy, polyneuropathy, and Gastroparesis presenting with vomiting and epigastric pain. Recent discharge 08/20 for intractable nausea/ vomiting and constipation. Active treatment of recurrent vomiting. Last EGD and colonoscopy 2007 at outside facility endorsed to be normal. Plan: >DDx: uncontrolled diabetes, gastroparesis >no further episdoes of vomiting since ER presentation >improve glycemic control >start prokinetic- ReglanACHS >counselled on dietary habits, remain upright position minimum of 3 hours postprandial >clear liquids >advance as tolerated to small, frequent low fat meals >Miralax daily >patient will reschedule appt with established naphthalene still operator at [facility] [place] <Steven Owen MD - Last Filed: 08/21/17 14:36> Meds - Medications Medications: Current Medications Sodium Chloride (Sodium Chloride 0.45%) 1,000 mls @ 100 mls/hr IV .Q10H [facility] Last Admin: 08/21/17 11:16 Dose: 100 mls/hr Pantoprazole Sodium (Protonix 40mg Ivpb) 40 mg in 100 mls @ 200 mls/hr IVPB 0600 [facility] Insulin Detemir (Levemir) 10 unit SC QAM [facility] Insulin Detemir (Levemir) 12 unit SC HS [facility] Insulin Human Lispro (Humalog) 4 units SC AC [facility] Insulin Human Lispro (Humalog Low) 0 units SC ACHS [facility] PRN Reason: Protocol Metoclopramide HCl (Reglan) 5 mg IVP ACHS [facility] Last Admin: 08/21/17 11:18 Dose: 5 mg Morphine Sulfate (Morphine) 1 mg IVP Q4H PRN PRN Reason: Pain, moderate (4-7) Last Admin: 08/21/17 11:18 Dose: 1 mg Ondansetron HCl (Zofran Inj) 4 mg IVP Q4H PRN PRN Reason: Nausea/Vomiting Polyethylene Glycol (Miralax) 17 gm PO DAILY [facility] Last Admin: 08/21/17 11:36 Dose: Not Given Results - Vital Signs Recent Vital Signs: Last Vital Signs Temp 98.9 F 08/21/17 07:10 Pulse 45 L 08/21/17 07:10 Resp 20 08/21/17 10:13 BP 208/94 H 08/21/17 10:00 Pulse Ox 96 08/21/17 07:10 - Labs Result Diagrams: 08/21/17 06:15 08/21/17 06:15 Labs: Laboratory Results - last 24 hr 08/21/17 11:24 POC Glucose (mg/dL) 251 H Attending/Attestation - Attestation I have personally seen and examined this patient.: Yes I have fully participated in the care of the patient.: Yes I have reviewed all pertinent clinical information: Yes Notes (Text): 08/21/17 14:34 Patient seen and examined at bedside this am. This is a 52 years old female with h/o chronic pain on opiates, HTN, Obesity, Gastroparesis, h/o Panc ca s/p whipple, h/o colon ca s/p partial colectomy admitted with exacerbation of gastroparesis. She was discharged 2 days ago with same complains and resolution. She did not fill her prescription for reglan and instead was taking ondansetron which did not alleviate her symptoms. Recommend prokinetics - reglan and continue PPI. Small frequent meals with low fat and low fiber as tolerated. Bowel regimen with miralax. Tight glycemic control.
[2017-08-21] MEDS ORDERED: Insulin Detemir 100 units/ml Vial (Levemir) SC SCH ×3 (11:15→22:00)
[2017-08-21] MEDS: Sodium Chloride 0.45% 1,000 ML IV SCH ×2 (11:16→21:05)
[2017-08-21] MEDS: Morphine 5 MG/ML SYRINGE IVP PRN ×2 (11:18→19:36)
[2017-08-21] MEDS ORDERED: Insulin Reg-HIGH-Coverage SC SCH (11:30)
[2017-08-21] MEDS: POLYETHYLENE GLYCOL 3350 17 GM/Dose PACKET PO SCH (11:36)
[2017-08-21] MEDS: Insulin Lispro 1 UNITS/0.01 ML SC SCH ×2 (16:01→16:36)
[2017-08-21] MEDS: Insulin Lispro (humaLOG) LOW Coverage SC SCH ×2 (16:03→21:45)
[2017-08-21 18:30] LABS: URINE BILIRUBIN NEGATIVE (NEGATIVE); URINE BLOOD NEGATIVE (NEGATIVE); URINE GLUCOSE (UA) 250 mg/dL (NEGATIVE); URINE KETONE NEGATIVE (NEGATIVE); URINE LEUKOCYTE ESTERASE NEGATIVE Leu/uL (NEGATIVE); URINE PROTEIN NEGATIVE mg/dL (<30 mg/dL); URINE UROBILINOGEN 0.2 E.U./dL (<1 E.U./dL)
[2017-08-21 18:34] LABS: URINE APPEARANCE CLEAR (CLEAR); URINE COLOR YELLOW (YELLOW)
[2017-08-22] MEDS: Morphine 5 MG/ML SYRINGE IVP PRN ×2 (00:02→03:44)
[2017-08-22] MEDS ORDERED: Pantoprazole 40mg/100ml IVPB 40 MG/100 ML BAG IVPB SCH (06:00)
--- NOTE | 2017-08-22 06:43 | CP.PCM.PN ---
<Nidia Burkett - Last Filed: 08/22/17 06:38> Subjective - Date & Time of Evaluation Date of Evaluation: 08/22/17 Time of Evaluation: 06:38 - Subjective Subjective: Gastroenterology Fellow/PGY5 Progress Note Patient tolerated clear liquid diet. No nausea or vomiting.Denies bowel movement yesterday. Refused Miralax. A 12-point review of systems negative except for as above. Objective - Vital Signs/Intake and Output Vital Signs (last 24 hours): Temp Pulse Resp BP Pulse Ox 98.5 F 48 L 16 158/81 H 97 08/22/17 00:00 08/22/17 00:00 08/22/17 00:00 08/22/17 00:00 08/22/17 00:00 Intake and Output: 08/21/17 08/22/17 18:59 06:59 Intake Total 240 460 Balance 240 460 - Medications Medications: Current Medications Sodium Chloride (Sodium Chloride 0.45%) 1,000 mls @ 100 mls/hr IV .Q10H [facility] Last Admin: 08/21/17 21:05 Dose: 100 mls/hr Pantoprazole Sodium (Protonix 40mg Ivpb) 40 mg in 100 mls @ 200 mls/hr IVPB 0600 [facility] Insulin Detemir (Levemir) 10 unit SC QAM [facility] Insulin Detemir (Levemir) 12 unit SC HS [facility] Last Admin: 08/21/17 21:48 Dose: 12 unit Insulin Human Lispro (Humalog) 4 units SC AC [facility] Last Admin: 08/21/17 16:36 Dose: Not Given Insulin Human Lispro (Humalog Low) 0 units SC [facility] PRN Reason: Protocol Last Admin: 08/21/17 21:45 Dose: Not Given Metoclopramide HCl (Reglan) 5 mg IVP ACHS [facility] Last Admin: 08/21/17 21:48 Dose: 5 mg Morphine Sulfate (Morphine) 1 mg IVP Q4H PRN PRN Reason: Pain, moderate (4-7) Last Admin: 08/22/17 03:44 Dose: 1 mg Ondansetron HCl (Zofran Inj) 4 mg IVP Q4H PRN PRN Reason: Nausea/Vomiting Polyethylene Glycol (Miralax) 17 gm PO DAILY [facility] Last Admin: 10/28/17 11:36 Dose: Not Given - Constitutional Appears: Non-toxic, No Acute Distress - Head Exam Head Exam: ATRAUMATIC, NORMOCEPHALIC - Eye Exam Eye Exam: EOMI, PERRL Pupil Exam: PERRL. absent: Miosis, Mydriatic - ENT Exam ENT Exam: Mucous Membranes Moist, Normal Oropharynx - Neck Exam Neck Exam: Full ROM, Normal Inspection - Respiratory Exam Respiratory Exam: Clear to Ausculation Bilateral. absent: Rales, Rhonchi, Wheezes - Cardiovascular Exam Cardiovascular Exam: RRR, +S1, +S2. absent: Gallop, Rubs - GI/Abdominal Exam GI & Abdominal Exam: Soft, Tenderness, Normal Bowel Sounds. absent: Distended, Firm, Guarding, Rigid, Organomegaly, Rebound Additional comments: mild epigastric discomfort to palpation - Extremities Exam Extremities Exam: Normal Inspection. 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 Recent discharge 08/20 for intractable nausea/ vomiting and constipation. Active treatment of recurrent vomiting in setting of uncontrolled diabetes and gastroparesis. Last EGD and colonoscopy 2007 at outside facility endorsed to be normal. Plan: >counselled on use of Reglan at home prior to meals- patient endorses she was not taking the medication >advance to full liquids >advance as tolerated to small, frequent low fat meals >counselled on compliance to bowel regimen as component to gut motility-Miralax daily >endocrinology managing insulin regimen >patient will reschedule appt with established search engine optimization consultant at [facility] [place] <Steven Owen MD - Last Filed: 08/22/17 18:28> Objective - Vital Signs/Intake and Output Vital Signs (last 24 hours): Temp Pulse Resp BP Pulse Ox 98.6 F 47 L 18 154/95 H 100 08/22/17 16:00 08/22/17 16:00 08/22/17 16:00 08/22/17 16:00 08/22/17 16:00 Intake and Output: 08/22/17 08/22/17 06:59 18:59 Intake Total 2460 600 Balance 2460 600 - Medications Medications: Current Medications Hydromorphone HCl (Dilaudid) 2 mg IVP Q4H PRN PRN Reason: Pain, severe (8-10) Sodium Chloride (Sodium Chloride 0.45%) 1,000 mls @ 100 mls/hr IV .Q10H [facility] Last Admin: 08/22/17 08:33 Dose: 100 mls/hr Insulin Detemir (Levemir) 18 unit SC HS [facility] Insulin Detemir (Levemir) 16 unit SC QAM [facility] Insulin Human Lispro (Humalog Low) 0 units SC ACHS [facility] PRN Reason: Protocol Last Admin: 08/22/17 12:18 Dose: Not Given Insulin Human Lispro (Humalog) 6 units SC AC [facility] Lisinopril (Zestril) 5 mg PO DAILY [facility] Metoclopramide HCl (Reglan) 5 mg PO 0600,1130,1630,2200 [facility] Last Admin: 08/22/17 12:16 Dose: 5 mg Morphine Sulfate (Morphine) 1 mg IVP Q4H PRN PRN Reason: Pain, moderate (4-7) Last Admin: 08/22/17 14:11 Dose: 1 mg Ondansetron HCl (Zofran Inj) 4 mg IVP Q4H PRN PRN Reason: Nausea/Vomiting Pantoprazole Sodium (Protonix Ec Tab) 40 mg PO 0600 [facility] Polyethylene Glycol (Miralax) 17 gm PO DAILY [facility] Last Admin: 08/22/17 10:02 Dose: 17 gm - Labs Labs: 08/22/17 06:30 08/22/17 06:30 Attending/Attestation - Attestation I have personally seen and examined this patient.: Yes I have fully participated in the care of the patient.: Yes I have reviewed all pertinent clinical information, including history, physical exam and plan: Yes Notes (Text): 08/22/17 18:25 Patient seen and examined at bedside this am. Looks better than yesterday. In a nutshell this is a 52 years old female with h/o chronic pain on opiates, HTN, Obesity, Gastroparesis, h/o Panc ca s/p whipple, h/o colon ca s/p partial colectomy admitted with exacerbation of gastroparesis. She was discharged 3 days ago with readmission for same symptoms. She did not fill her prescription for reglan and instead was taking ondansetron which did not alleviate her symptoms. Recommend prokinetics - reglan and continue PPI. Small frequent meals with low fat and low fiber as tolerated. Bowel regimen with miralax. Tight glycemic control. Patient can be discharged on reglan and PPI
[2017-08-22 07:48] LABS: HEMATOCRIT 36.3 % (36.0-48.0); MEAN CORPUSCULAR HEMOGLOBIN 26.4 pg (25.0-35.0); MEAN CORPUSCULAR HGB CONC 33.1 g/dl (31.0-37.0); MEAN PLATELET VOLUME 10.4 fl (7.0-11.0); WHITE BLOOD COUNT 3.9 10^3/ul (4.5-11.0)
[2017-08-22 08:08] LABS: ALB/GLOB RATIO 1.5 (1.1-1.8); ALKALINE PHOSPHATASE 92 U/L (38-126); ALT/SGPT 26 U/L (7-56); AST/SGOT 19 U/L (14-36); BILIRUBIN,TOTAL 0.6 mg/dL (0.2-1.3); BLOOD UREA NITROGEN 6 mg/dL (7-21); CARBON DIOXIDE 31 mmol/L (21-33); CHLORIDE 103 mmol/L (98-107); GFR AFRICAN-AMERICAN > 60; GLUCOSE,RANDOM 265 mg/dL (70-110); POTASSIUM 3.6 mmol/L (3.6-5.0); SODIUM 140 mmol/L (132-148)
[2017-08-22] MEDS: Insulin Lispro 1 UNITS/0.01 ML SC SCH ×3 (08:29→19:56)
[2017-08-22] MEDS: Insulin Lispro (humaLOG) LOW Coverage SC SCH ×4 (08:31→21:56)
[2017-08-22] MEDS: Sodium Chloride 0.45% 1,000 ML IV SCH (08:33)
[2017-08-22] MEDS ORDERED: Insulin Detemir 100 units/ml Vial (Levemir) SC SCH ×3 (10:00→22:00)
[2017-08-22] MEDS: POLYETHYLENE GLYCOL 3350 17 GM/Dose PACKET PO SCH (10:02)
--- NOTE | 2017-08-22 13:57 | PN ---
DATE: SUBJECTIVE: I saw Marizol this morning, hoping to send her home today. She is in the hospital for 24 hours and she was just discharged about 2 days ago for abdominal pain, nausea and vomiting, but this morning she was on full liquid. She had a couple of sips of apple juice and threw up. She did not need anything else this morning. She feels like she has a lot of abdominal pain. No gas. She feels nauseous. MEDICATIONS: She is currently on IV fluids at 100, Dilaudid 1 mg for pain, insulin, Levemir, MiraLax, morphine, Norvasc, metoprolol, and Zofran. PHYSICAL EXAMINATION: GENERAL: She has 97.9 temperature, 74 pulse, 122/64 blood pressure, 20 respiratory rate, and 94% O2 sat on nasal cannula. HEENT: Head is atraumatic and normocephalic. HEART: Regular rate. LUNGS: Decreased breath sounds, but clear. ABDOMEN: Soft. No bowel sounds and mild discomfort, but no guarding or rebound. No CVA tenderness. EXTREMITIES: Have no edema. LABORATORY DATA: She has a 3.9 white count, 12 hemoglobin and 36.3 hematocrit with 243 platelets. She has 140 sodium, potassium is 3.6, BUN is 6, and creatinine is 0.7. GFR is greater than 60 and sugars are 265 and 318, I will increase her treatment for her diabetes. She has a calcium of 9, total bilirubin is 0.6, AST is 19, ALT is 26, alkaline phosphatase is 92, total protein is 6. IMPRESSION: Severe abdominal pain, nausea, vomiting, gastroparesis, diabetes and hypertension. PLAN: She is being seen by GI. They recommended Reglan, advancing to full liquids, multiple small meals, I do not know I can get it to home and later inpatient today, which can take more than couple sips of liquid. So, I will continue treatment at this time. I am going to increase her nighttime Levemir to 15 hopefully may be right tomorrow, we can get her home and she can start to eat again, I do not want her to come bouncing back either. Mayur Mcclendon DO [facility] # [id number] JE
[2017-08-22] MEDS: HYDROmorphone 2 mg/ml ISec IVP PRN ×2 (16:21→22:01)
--- NOTE | 2017-08-22 19:43 | PN ---
ENDO FOLLOWUP NOTE LOCATION: Room 564. This is a 52-year-old female with recent uncontrolled type 2 insulin-requiring diabetes now being followed closely for metabolic management. Her glycemic levels are fluctuating, but much improved at this time, and the latest glucose levels have ranged from 207 to 318 mg/dL. The latest chemistry showed a BUN of 6, sodium 140, potassium 3.6, chloride 103, CO2 of 31, glucose 265, and creatinine 0.7. So at this time, we will modify her basal and bolus insulin regimen and increase the basal insulin with Levemir to be given as 16 units subcu at 10 a.m. daily, and Levemir to be given as 18 units subcu at bedtime daily to start tonight. We will increase the Humalog to 6 units subcu t.i.d. before meals as ordered. We will also advance her diet now from a liquid diet to a soft diet with moderate carb consistency given 3 times a day as ordered. We will titrate incrementally as indicated to optimize metabolic control. We will follow and advise accordingly. Adali Ferguson MD
[2017-08-23] MEDS: HYDROmorphone 2 mg/ml ISec IVP PRN ×3 (03:33→13:02)
[2017-08-23] MEDS ORDERED: Pantoprazole 40 mg EC Tab PO SCH (06:00)
[2017-08-23 06:58] LABS: HEMATOCRIT 34.1 % (36.0-48.0); MEAN CELL VOLUME 80.4 fl (80.0-105.0); MEAN CORPUSCULAR HEMOGLOBIN 26.4 pg (25.0-35.0); MEAN CORPUSCULAR HGB CONC 32.8 g/dl (31.0-37.0); MEAN PLATELET VOLUME 9.8 fl (7.0-11.0); RED CELL DISTRIBUTION WIDTH 14.1 % (11.5-14.5); WHITE BLOOD COUNT 3.6 10^3/ul (4.5-11.0)
[2017-08-23 07:57] LABS: ALB/GLOB RATIO 1.5 (1.1-1.8); ALKALINE PHOSPHATASE 71 U/L (38-126); ALT/SGPT 28 U/L (7-56); AST/SGOT 13 U/L (14-36); BILIRUBIN,TOTAL 0.5 mg/dL (0.2-1.3); BLOOD UREA NITROGEN 9 mg/dL (7-21); CALCIUM 8.5 mg/dL (8.4-10.5); CARBON DIOXIDE 27 mmol/L (21-33); CHLORIDE 105 mmol/L (95-110); GFR AFRICAN-AMERICAN > 60; GLUCOSE,RANDOM 189 mg/dL (70-110); POTASSIUM 3.8 mmol/L (3.6-5.0); SODIUM 139 mmol/L (132-148); TOTAL PROTEIN 5.2 g/dL (5.8-8.3)
[2017-08-23] MEDS: Insulin Lispro 1 UNITS/0.01 ML SC SCH ×3 (08:00→13:00)
[2017-08-23] MEDS: Insulin Lispro (humaLOG) LOW Coverage SC SCH ×3 (08:02→16:37)
[2017-08-23 08:05] VITALS: TEMP 98.1
--- NOTE | 2017-08-23 08:31 | HP ---
HISTORY OF PRESENT ILLNESS: I know Marizol very well from the office since she was just out of hospital 2 days ago. She came in with intractable nausea, vomiting, and abdominal pain. She went home after eating breakfast and lunch, doing well. She also ate dinner well. In the middle of the night, she woke up, throwing up, intractable nausea again, abdominal pain again and she is back in the emergency room. She is here with abdominal pain, intractable nausea and vomiting and uncomfortable. I see her sitting in the bed, not feeling well. She is a 52-year-old female with intractable nausea and vomiting over the past week, it is only about 2 to 3 days of doing well. PAST MEDICAL HISTORY: She has a history of diabetes, gastroparesis, hypertension, colon cancer with surgery, she had Whipple and a . COPD, asthma, diabetes type I. ALLERGIES: SHE HAS ALLERGIES TO ACETAMINOPHEN, CODEINE, AND IODINE. FAMILY HISTORY: Hypertension and diabetes in the family. SOCIAL HISTORY: She smokes cigarettes. No drinking. No drug use. MEDICATIONS: She takes Metaxall, oxycodone, Januvia, Vasotec, Pepcid, hydroxyzine, Lantus, Glucophage, Reglan, omeprazole, Zofran, OxyContin, Protonix, potassium, and Zocor. I am not sure where she is getting all those pain medications from, it is not from me, she must be seeing a pain management doctor on the outpatient. REVIEW OF SYSTEMS: No acute vision or hearing changes. No sore throat. No neck pain. No shortness of breath or coughing. No chest pain or palpitations. She is having abdominal pain, severe with nausea and vomiting. There is constipation. She is urinating okay. There is chronic back pain and neck pain, which is chronic. No apparent skin rashes. Not anxious. Not depressed. PHYSICAL EXAMINATION: GENERAL: Alert and oriented x3, although bit uncomfortable, but not toxic. VITAL SIGNS: She has 98.2 temperature, 43 pulses, 16 respiratory rate, 151/61 blood pressure, 100% O2 saturation on room air. HEENT: Atraumatic, normocephalic. Extraocular muscles are intact. Pupils are equal, round, and reactive to light and accommodation. Mouth is dry. NECK: Supple. HEART: Regular rate. Normal S1 and S2. LUNGS: Decreased breath sounds, but clear to auscultation. No wheezes, no rhonchi. No rales. ABDOMEN: Mildly distended, but soft. Decreased bowel sounds. No guarding, no rebound, and no CVA tenderness. EXTREMITIES: Have no edema. GCS of 15. NEUROLOGIC: Cranial nerves II through XII grossly intact. Speech is normal. Alert and oriented x3. SKIN: Warm and dry. No apparent rashes or ulcers are appreciated. LYMPHATICS: Thyroid midline. No palpable or appreciable lymphadenopathy. She is uncomfortable gain. She will have a consult with GI. LABORATORY DATA: She had multiple tests. She has a 139 sodium, potassium 4.2, BUN 8, creatinine 0.7, GFR is greater than 60, sugars are high at 409. Calcium is 9.9, total bilirubin is 0.8, AST is 16, ALT is 30, alkaline phosphatase total protein 6.6, albumin is 4.1, lipase is 49. White count is 3.5, hemoglobin 13.1, hematocrit 39.7, and platelets are 227. PLAN: She will be seen by GI, Pulmonary, and Endocrinology to help me with her diabetes. I do not know if she has been so compliant at home. She will be on IV Zofran. She will be on IV Protonix, IV Reglan, and insulin. Hopefully, she will do well. She is on observation right now. Intractable nausea, vomiting, abdominal pain, diabetes, hypertension, gastroparesis, and she is in observation, hopefully she will do well quickly. Mayur Mcclendon DO [facility]TD[facility]
--- NOTE | 2017-08-23 08:54 | CON ---
ENDOCRINOLOGY CONSULTATION DATE: 08/21/2017 HISTORY OF PRESENT ILLNESS: 52-year-old female with known history of type 2 insulin-requiring diabetes and significant gastroparesis, and is now presenting here with intractable nausea, dyspepsia, and a vomiting episode, and currently on liquid diet as ordered and is now being referred for diabetic evaluation and management. PAST MEDICAL HISTORY: Shows recently admitted and discharged on 08/20/2017 for the same aforementioned recurrent gastroparesis with vomiting episodes as noted. As mentioned above, history of type 2 insulin-requiring diabetes, currently on a combination of Lantus given as 15 units at bedtime with metformin 1 g b.i.d. as ordered and also with Januvia 50 mg once daily. 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 Also, history of colonic carcinoma with prior colon resection and also prior Whipple surgery, the exact detail is not known at this time. FAMILY HISTORY: Positive for diabetes and hypertension. SOCIAL HISTORY: The patient has supportive family, admits to nicotine dependence. Otherwise, no other known substance use. REVIEW OF SYSTEMS: Admits to generalized body weakness with easy fatigability and . No chest pain or palpitation or PND. Her oral intake has been variable, suboptimal with nausea, dyspepsia and vague upper abdominal pains. Also admits to marked polyuria, nocturia and polydipsia . PHYSICAL EXAMINATION: GENERAL: . VITAL SIGNS: . HEENT: Head normocephalic. Eyes anicteric with pink conjunctivae. Funduscopy, not possible at this time. Ears, nose and throat otherwise normal. NECK: Supple. Thyroid gland is normal in size. No carotid bruits or any cervical adenopathy. CARDIOPULMONARY: Adynamic precordium. S1 and S2 is rapid and regular. LUNGS: Clear to auscultation. ABDOMEN: Flat, soft with positive bowel sounds. EXTREMITIES: No peripheral edema. Pulses are bilaterally. LABORATORY DATA: , sodium 139, potassium 4.2, chloride 105, CO2 24 glucose is 261 . ASSESSMENT: A 52-year-old female with recurrent gastroparesis and frequent admission for intractable nausea, dyspepsia, and vomiting episode, is now being referred for diabetic evaluation and management. Plan of management discussed with the patient . We will modify her coverage scale to obviate hypoglycemia and detailed orders have been given for a low-dose Humalog coverage scale as given. We will add low-dose of Humalog given as 4 units subq t.i.d. before meals as given. We will also add Levemir given twice daily at 10 units at 10 a.m., 12 units at 10 p.m. to start tonight. We will modify her coverage scale as ordered. We will continue the IV hydration as given and we will obtain serial chemistries and supplements accordingly as needed. Adali Ferguson MD
--- NOTE | 2017-08-23 09:22 | CP.PCM.PN ---
Subjective - Date & Time of Evaluation Date of Evaluation: 08/23/17 Time of Evaluation: 09:18 - Subjective Subjective: Patient seen and examined, resting in bed comfortably. No acute events overnight, no recurrent vomiting. She ate faroese toast this morning without difficulty. She endorses mild nausea but denies abdominal pain, fever/chills. Review of vitals from today are normal. 12 point review of systems performed, negative aside from mentioned above. Objective - Vital Signs/Intake and Output Vital Signs (last 24 hours): Temp Pulse Resp BP Pulse Ox 98.1 F 65 20 108/65 99 08/23/17 07:30 08/23/17 07:30 08/23/17 07:30 08/23/17 07:30 08/23/17 07:30 Intake and Output: 08/23/17 08/23/17 06:59 18:59 Intake Total 600 Balance 600 - Medications Medications: Current Medications Hydromorphone HCl (Dilaudid) 2 mg IVP Q4H PRN PRN Reason: Pain, severe (8-10) Last Admin: 08/23/17 08:01 Dose: 2 mg Insulin Detemir (Levemir) 18 unit SC HS [facility] Last Admin: 08/22/17 21:56 Dose: 18 unit Insulin Detemir (Levemir) 16 unit SC QAM [facility] Insulin Human Lispro (Humalog Low) 0 units SC ACHS [facility] PRN Reason: Protocol Last Admin: 08/23/17 08:02 Dose: Not Given Insulin Human Lispro (Humalog) 6 units SC AC [facility] Last Admin: 08/23/17 08:00 Dose: 6 units Lisinopril (Zestril) 5 mg PO DAILY [facility] Last Admin: 08/22/17 16:19 Dose: 5 mg Metoclopramide HCl (Reglan) 5 mg PO 0600,1130,1630,2200 [facility] Last Admin: 08/23/17 06:39 Dose: 5 mg Morphine Sulfate (Morphine) 1 mg IVP Q4H PRN PRN Reason: Pain, moderate (4-7) Last Admin: 08/22/17 14:11 Dose: 1 mg Ondansetron HCl (Zofran Inj) 4 mg IVP Q4H PRN PRN Reason: Nausea/Vomiting Pantoprazole Sodium (Protonix Ec Tab) 40 mg PO 0600 [facility] Last Admin: 08/23/17 06:38 Dose: 40 mg Polyethylene Glycol (Miralax) 17 gm PO DAILY [facility] Last Admin: 08/22/17 10:02 Dose: 17 gm - Labs Labs: 08/23/17 06:45 08/23/17 07:30 - Constitutional Appears: Non-toxic, No Acute Distress - Head Exam Head Exam: NORMAL INSPECTION - Eye Exam Eye Exam: EOMI, Normal appearance - ENT Exam ENT Exam: Mucous Membranes Moist - Respiratory Exam Respiratory Exam: Clear to Ausculation Bilateral - Cardiovascular Exam Cardiovascular Exam: +S1, +S2 - GI/Abdominal Exam GI & Abdominal Exam: Soft, Normal Bowel Sounds Additional comments: non tender to palpation in four quadrants - Extremities Exam Extremities Exam: Normal Inspection - Skin Skin Exam: Dry, Intact, Normal Color, Warm Assessment and Plan - Assessment and Plan (Free Text) Assessment: Obesity Uncontrolled DM Nausea, vomiting - gastroparesis HTN Plan: - Continue with diabetic low fat diet as tolerated, suggest small frequent meals - Continue with pro-motility therapy - Anti-emetic therapy PRN - Patient requires tight glycemic control, follow up endocrine recommendations - Avoid use of narcotic pain medication as this may exacerbate underlying symptoms - From GI standpoint ok to discharge patient home with subsequent outpatient follow up. Will sign off case, please reconsult as necessary, thank you.
[2017-08-23] MEDS ORDERED: Insulin Detemir 100 units/ml Vial (Levemir) SC SCH ×2 (10:00→22:00)
[2017-08-23] MEDS: POLYETHYLENE GLYCOL 3350 17 GM/Dose PACKET PO SCH (10:52)
[2017-08-23] MEDS ORDERED: Insulin Detemir 100 units/ml Vial (Levemir) SC ONE (11:00)
[2017-08-23] MEDS ORDERED: Morphine 5 MG/ML SYRINGE IVP PRN (15:41)
[2017-08-23] MEDS ORDERED: Insulin Lispro 1 UNITS/0.01 ML SC SCH (16:30)
[2017-08-23 17:06] VITALS: BP 140/62; PULSE 63; RESP 18; O2SAT 97
--- NOTE | 2017-08-23 17:33 | PN ---
LOCATION: In room 564. This is a 52-year-old female with recent uncontrolled insulin-requiring diabetes, now being followed closely for metabolic management. Her glycemic levels are fluctuating but improved and the latest glucose levels have ranged from 196 to 212 and 259 mg/dL. Her latest chemistry showed a BUN of 9, sodium 139, potassium 3.8, chloride 105, CO2 of 27, glucose 189 and creatinine 0.7. So at this time, we will modify once again her basal and bolus insulin regimen as ordered with Humalog to be given as 8 units subcu t.i.d. before meals at a higher dose now, since they have advanced her diet to solids food as noted. We will also increase her basal insulin to Lantus given as 20 units subcu at bedtime daily to start tonight. We will titrate incrementally as indicated to optimize metabolic control. We will also continue the low-dose correction scale using Humalog insulin as ordered. We will obtain serum chemistries and supplement accordingly. We will follow with you. Adali Ferguson MD
--- NOTE | 2017-08-24 04:39 | DS ---
SUBJECTIVE: I saw her resting comfortably in bed. She actually ate her breakfast today. She had lebanese toast and keep it down. No nausea or vomiting. That was an hour earlier. She is comfortable. She is getting Dilaudid for pain, insulin coverage, Levemir, MiraLax, morphine for pain, Protonix, Reglan, Zestril and Zofran. PHYSICAL EXAMINATION: VITAL SIGNS: Her vital signs are 98.1 temperature, 65 pulse, 108/65 blood pressure, 20 respiratory rate, 99% O2 sat on room air. HEENT: Head is atraumatic and normocephalic. HEART: Regular rate. LUNGS: Clear to auscultation. ABDOMEN: Soft, obese, nontender, positive bowel sounds. No guarding. No rebound. No CVA tenderness. EXTREMITIES: No edema. LABORATORY DATA: She has a 3.6 white count, 11.2 hemoglobin, 34.1 hematocrit with 235 platelets. A 139 sodium, potassium is 3.8, BUN is 9, creatinine 0.7, GFR is greater than 60, and sugar is 189. Calcium is 8.5, total bilirubin is 0.5, AST is 13, ALT is 28, alkaline phosphatase is 71, total protein is 5.2 and albumin is 3.1. PLAN: She is being seen by GI and Endocrinology. We increased her diet. My plan is to discharge her home this afternoon after she eats lunch. She understands the plan. She feels like that she can do it. Continue with medications at home. Keep her blood sugars between 100 and 180. Mayur Mcclendon DO
== END 2017-08-23 17:50 | disposition home or self-care (01) ==
LOC: ED 04:56 → ERH 06:27 → 5RNO 07:51
PROVIDERS: ADMIT Family Medicine; ATTEND Family Medicine
DX: E11.43 Type 2 diabetes mellitus with diabetic autonomic (poly)neuropathy (principal); K31.84 Gastroparesis; I10 Essential (primary) hypertension; J44.9 Chronic obstructive pulmonary disease, unspecified; F17.210 Nicotine dependence, cigarettes, uncomplicated; F12.90 Cannabis use, unspecified, uncomplicated; G89.29 Other chronic pain; E66.9 Obesity, unspecified; E78.5 Hyperlipidemia, unspecified; K21.9 Gastro-esophageal reflux disease without esophagitis; Z79.891 Long term (current) use of opiate analgesic; Z79.4 Long term (current) use of insulin; Z85.07 Personal history of malignant neoplasm of pancreas; Z90.49 Acquired absence of other specified parts of digestive tract; Z85.038 Personal history of other malignant neoplasm of large intestine; Z90.411 Acquired partial absence of pancreas
CPT/HCPCS: 36415; 80053; 81003; 82010; 82948; 83690; 85025; 85027; 96361; 96374; 96375; 96376; 99285; G0378; J1170; J2270; J2405; J2765; J7030; J7040

== ENCOUNTER 2017-09-20 03:01 | Observation (INO) | payer BC, OTHER ==
[2017-09-20 03:02] VITALS: BMI 34.3
[2017-09-20] MEDS ORDERED: Sodium Chloride 0.9% 1,000 ML IV SCH (03:15)
--- NOTE | 2017-09-20 03:24 | ED PDOC ---
Arrival/HPI - General Historian: Patient - History of Present Illness Time/Duration: < week Symptom Onset: Gradual Symptom Course: Worsening Quality: Cramping Severity Level: Moderate <Mo Ceron - Last Filed: 09/20/17 06:36> <Sidney Verdin - Last Filed: 09/20/17 07:02> - General Chief Complaint: Abdominal Pain Time Seen by Provider: 09/20/17 03:14 - History of Present Illness Narrative History of Present Illness (Text): 09/20/17 03:21 This is a 52 yo female, hx of colon cancer, pancreatic cancer, DM, asthma, gastroparesis, presenting with chief complaint abdominal pain. Pain x 2 days. Has happened before, but pt cannot recall dx. Hx of intractable nausea/vomiting 2 to diabetic gastroparesis. Reports pain was getting so bad she had to come in. Vomited multiple times today. Denies fevers/chills. Denies diarrhea/ constipation. Radiates to left flank/back. PMH: as above, chronic opiate user PSH: subtotal colectomy, Whipple's procedure Allergies: codeine, iodine FH: hypertension, diabetes Social hx: current smoker. denies drinking, drug use. (Mo Ceron) Past Medical History - Provider Review Nursing Documentation Reviewed: Yes - Travel History Have you recently traveled outside [place] w/in the past 3 mons?: No - Infectious Disease Hx of Infectious Diseases: None - Tetanus Immunization Tetanus Immunization: Unknown - Cardiac Hx Cardiac Disorders: Yes Hx Hypertension: Yes - Pulmonary Hx Asthma: Yes Hx Chronic Obstructive Pulmonary Disease (COPD): Yes - Neurological Hx Neurological Disorder: No - HEENT Hx HEENT Disorder: No - Renal Hx Renal Disorder: No - Endocrine/Metabolic Hx Diabetes Mellitus Type 1: Yes - Hematological/Oncological Hx Cancer: Yes (Colon) Other/Comment: colon ca - Integumentary Hx Dermatological Disorder: No - Musculoskeletal/Rheumatological Hx Musculoskeletal Disorders: No Hx Falls: No - Gastrointestinal Hx Gastrointestinal Disorders: Yes Hx Gastroesophageal Reflux: Yes Other/Comment: colon ca with surgery - Genitourinary/Gynecological Hx Genitourinary Disorders: No - Psychiatric Hx Psychophysiologic Disorder: No Hx Substance Use: No (use treatment) - Surgical History Hx Tubal Ligation: Yes Other/Comment: CA Colon - whipple,CESEREAN X 1 - Anesthesia Hx Anesthesia: No Hx Anesthesia Reactions: No Hx Malignant Hyperthermia: No - Suicidal Assessment Feels Threatened In Home Enviroment: No <Mo Ceron - Last Filed: 09/20/17 06:36> Family/Social History - Physician Review Nursing Documentation Reviewed: Yes Family/Social History: Diabetes, Hypertension Smoking Status: Light Smoker < 10 Cigarettes Daily Hx Alcohol Use: No Hx Substance Use: No (use treatment) Hx Substance Use Treatment: Yes <Mo Ceron - Last Filed: 09/20/17 06:36> Allergies/Home Meds <Mo Ceron - Last Filed: 09/20/17 06:36> <Sidney Verdin - Last Filed: 09/20/17 07:02> Allergies/Adverse Reactions: Allergies codeine Allergy (Verified 08/21/17 05:10) VOMITING iodine Allergy (Verified 08/21/17 05:10) RASH Home Medications: Home Meds Medication Instructions Recorded Confirmed Metaxalone [Metaxall] 800 mg PO QID 07/22/17 09/20/17 Oxycodone HCl [Oxycodone HCl ER] 80 mg PO Q12 07/22/17 09/20/17 SITagliptin [Januvia] 50 mg PO DAILY 07/22/17 09/20/17 Enalapril Maleate [Vasotec] 5 mg PO DAILY 08/17/17 09/20/17 Famotidine [Pepcid] 40 mg PO DAILY 08/17/17 09/20/17 Hydroxyzine Pamoate 100 mg PO DAILY 08/17/17 09/20/17 Insulin Glargine, Recombina 15 units SC HS 08/17/17 09/20/17 [Lantus] MetFORMIN [glucoPHAGE] 1,000 mg PO BID 08/17/17 09/20/17 Potassium Chloride [Klor-Con] 20 meq PO DAILY 08/17/17 09/20/17 Simvastatin [Zocor] 20 mg PO DAILY 08/17/17 09/20/17 Review of Systems - Review of Systems Constitutional: absent: Fatigue, Weight Change Eyes: absent: Vision Changes, Photophobia ENT: absent: Hearing Changes, Tinnitus Respiratory: absent: SOB, Cough Cardiovascular: absent: Chest Pain, Palpitations Gastrointestinal: Abdominal Pain, Nausea, Vomiting. absent: Constipation, Diarrhea Genitourinary Female: absent: Dysuria, Frequency Musculoskeletal: Back Pain. absent: Arthralgias Skin: absent: Rash, Pruritis Neurological: absent: Headache, Dizziness, Facial Droop Endocrine: absent: Diaphoresis, Polyuria Hemo/Lymphatic: absent: Adenopathy, Easy Bleeding Psychiatric: absent: Anxiety, Depression <Mo Ceron - Last Filed: 09/20/17 06:36> Physical Exam Vital Signs Reviewed: Yes - Systems Exam Head: Present: Atraumatic, Normocephalic Pupils: Present: PERRL Extroacular Muscles: Present: EOMI Conjunctiva: Present: Normal Neck: Present: Normal Range of Motion. No: Meningeal Signs Respiratory/Chest: Present: Clear to Auscultation. No: Respiratory Distress Cardiovascular: Present: Regular Rate and Rhythm, Normal S1, S2 Abdomen: Present: Tenderness. No: Distention, Peritoneal Signs Upper Extremity: Present: Normal Inspection. No: Cyanosis, Edema Lower Extremity: Present: Normal Inspection. No: Edema Neurological: Present: CN II-XII Intact, Speech Normal Skin: Present: Warm, Dry Psychiatric: Present: Alert, Oriented x 3, Normal Insight, Normal Concentration <Mo Ceron - Last Filed: 09/20/17 06:36> Vital Signs Temp Pulse Resp BP Pulse Ox 09/20/17 06:06 80 16 133/89 98 09/20/17 03:10 98.6 F 93 H 16 148/96 H 98 Medical Decision Making <Mo Ceron - Last Filed: 09/20/17 06:36> <Sidney Verdin - Last Filed: 09/20/17 07:02> ED Course and Treatment: 09/20/17 07:02 case d/w dr hunter accepts case for dr leija (Sidney Verdin) - Lab Interpretations Lab Results: 09/20/17 03:15 09/20/17 03:15 Lab Results 09/20/17 03:35: Urine Color Yellow, Urine Appearance Clear, Urine pH 6.5, Ur Specific [place] 1.020, Urine Protein 30 H, Urine Glucose (UA) 500 H, Urine Ketones Trace H, Urine Blood Negative, Urine Nitrate Negative, Urine Bilirubin Negative, Urine Urobilinogen 1.0 H, Ur Leukocyte Esterase Negative, Urine RBC 0 - 2, Urine WBC 0 - 2, Ur Epithelial Cells Many, Urine Bacteria Rare, Urine HCG, Qual Negative 09/20/17 03:35: Urine Opiates Screen Positive H, Urine Methadone Screen Negative , Ur Barbiturates Screen Negative, Ur Phencyclidine Scrn Negative, Ur Amphetamines Screen Negative, U Benzodiazepines Scrn Negative, U Oth Cocaine Metabols Negative, U Cannabinoids Screen Negative 09/20/17 03:15: Sodium 136, Potassium 4.0, Chloride 99, Carbon Dioxide 27, Anion Gap 14, BUN 12, Creatinine 0.6 L, Est GFR ( Amer) > 60, Est GFR ( Non-Af Amer) > 60, Random Glucose 327 H* D, Calcium 9.7, Magnesium 1.3 L, Total Bilirubin 0.7, AST 23, ALT 32, Alkaline Phosphatase 122, Total Protein 7.7, Albumin 4.4, Globulin 3.3, Albumin/Globulin Ratio 1.3, Amylase 56, Lipase 50 09/20/17 03:15: WBC 3.5 L, RBC 5.04, Hgb 13.8 D, Hct 41.4, MCV 82.1, MCH 27.4, MCHC 33.3, RDW 14.0, Plt Count 275, MPV 9.2, Gran % 53.0, Lymph % (Auto) 38.8 H , [place] % (Auto) 6.7 H, Eos % (Auto) 1.2 L, Baso % (Auto) 0.3, Gran # 1.83, Lymph # 1.3, [place] # 0.2, Eos # 0.0, Baso # 0.01 - RAD Interpretation Radiology Orders: 09/20/17 03:18 ABD & PELVIS W/O PO OR IV CONT [CT] Stat - Medication Orders Current Medication Orders: Acetaminophen (Tylenol 325mg Tab) 650 mg PO Q4H PRN PRN Reason: Pain, Mild (1-3) Sodium Chloride (Sodium Chloride 0.9%) 1,000 mls @ 100 mls/hr IV .Q10H NADYA Last Admin: 09/20/17 03:20 Dose: 100 mls/hr eMAR Start Stop Document 09/20/17 03:20 AD (Rec: 09/20/17 05:08 AD [id number]) Intravenous Solution Start Date 09/20/17 Start Time 03:20 Sodium Chloride (Sodium Chloride 0.9%) 1,000 mls @ 100 mls/hr IV .Q10H STA Stop: 09/20/17 15:33 Last Admin: 09/20/17 06:58 Dose: Insulin Human Regular (Humulin R Low) 0 units SC ACHS NADYA PRN Reason: Protocol Discontinued Medications Hydromorphone HCl (Dilaudid) 0.5 mg IVP STAT STA Stop: 09/20/17 04:57 Last Admin: 09/20/17 05:12 Dose: 0.5 mg MAR Pain Assessment Document 09/20/17 05:12 AD (Rec: 09/20/17 05:13 AD [id number]) Pain Reassessment Is this a pain reassessment? No Presence of Pain Presence of Pain Yes Pain Scale Used Pain Scale Used Numeric Location Pain Location Body Site Abdomen Description Description Constant Intensity of Pain at present 10 Pain Behavior Facial Grimacing IVP Administration Document 09/20/17 05:12 AD (Rec: 09/20/17 05:13 AD [id number]) Charges for Administration # of IVP Administrations 1 Magnesium Sulfate 2 gm/ Sodium (Chloride) 104 mls @ 102 mls/hr IVPB ONCE ONE Stop: 09/20/17 05:03 Last Admin: 09/20/17 05:07 Dose: 102 mls/hr eMAR Start Stop Document 09/20/17 05:07 AD (Rec: 09/20/17 05:08 AD [id number]) Intravenous Solution Start Date 09/20/17 Start Time 05:08 Ondansetron HCl (Zofran Inj) 4 mg IVP STAT STA Stop: 09/20/17 03:16 Last Admin: 09/20/17 04:14 Dose: 4 mg IVP Administration Document 09/20/17 04:14 AD (Rec: 09/20/17 04:14 AD [id number]) Charges for Administration # of IVP Administrations 1 - PA / PIANO MAKER / Resident Statement / has reviewed & agrees with the documentation as recorded. / has examined the patient and agrees with the treatment plan. <Sidney Verdin - Last Filed: 09/20/17 07:02> Disposition/Present on Arrival - Present on Arrival Any Indicators Present on Arrival: No History of DVT/PE: No History of Uncontrolled Diabetes: No Urinary Catheter: No History of Decub. Ulcer: No History Surgical Site Infection Following: None - Disposition Have Diagnosis and Disposition been Completed?: Yes Disposition Time: 05:00 <Mo Ceron - Last Filed: 09/20/17 06:36> <Sidney Verdin - Last Filed: 09/20/17 07:02> - Disposition Diagnosis: Intractable vomiting with nausea, Intractable abdominal pain Disposition: HOSPITALIZED Condition: STABLE
[2017-09-20 03:37] LABS: BASO # 0.01 K/mm3 (0.0-2.0); BASO % 0.3 % (0.0-3.0); EOS % 1.2 % (1.5-5.0); GRAN # 1.83 (1.4-6.5); HEMATOCRIT 41.4 % (36.0-48.0); LYMPH # 1.3 (1.2-3.4); LYMPH % 38.8 % (22.0-35.0); MEAN CELL VOLUME 82.1 fl (80.0-105.0); MEAN CORPUSCULAR HEMOGLOBIN 27.4 pg (25.0-35.0); MEAN CORPUSCULAR HGB CONC 33.3 g/dl (31.0-37.0); MEAN PLATELET VOLUME 9.2 fl (7.0-11.0); MONO # 0.2 (0.1-0.6); MONO % 6.7 % (1.0-6.0); WHITE BLOOD COUNT 3.5 10^3/ul (4.5-11.0)
[2017-09-20 04:01] LABS: ALB/GLOB RATIO 1.3 (1.1-1.8); ALKALINE PHOSPHATASE 122 U/L (38-126); ALT/SGPT 32 U/L (7-56); AMYLASE 56 U/L (35-125); AST/SGOT 23 U/L (14-36); BILIRUBIN,TOTAL 0.7 mg/dL (0.2-1.3); BLOOD UREA NITROGEN 12 mg/dL (7-21); CALCIUM 9.7 mg/dL (8.4-10.5); CARBON DIOXIDE 27 mmol/L (21-33); CHLORIDE 99 mmol/L (98-107); GFR AFRICAN-AMERICAN > 60; LIPASE 50 U/L (23-300); MAGNESIUM 1.3 mg/dL (1.7-2.2); SODIUM 136 mmol/L (132-148); TOTAL PROTEIN 7.7 g/dL (5.8-8.3)
[2017-09-20] MEDS ORDERED: Magnesium Sulfate 2 GM in Sodium Chloride 0.9% 100 ML IVPB ONE (04:02)
[2017-09-20 04:03] LABS: PH,URINE 6.5 (4.7-8.0); URINE BILIRUBIN NEGATIVE (NEGATIVE); URINE BLOOD NEGATIVE (NEGATIVE); URINE GLUCOSE (UA) 500 mg/dL (NEGATIVE); URINE KETONE TRACE mg/dL (NEGATIVE); URINE LEUKOCYTE ESTERASE NEGATIVE Leu/uL (NEGATIVE); URINE PROTEIN 30 mg/dL (<30 mg/dL)
[2017-09-20 04:04] LABS: URINE APPEARANCE CLEAR (CLEAR); URINE COLOR YELLOW (YELLOW)
[2017-09-20 04:34] LABS: GLUCOSE,RANDOM 327 mg/dL (70-110)
[2017-09-20 04:42] LABS: URINE BACTERIA RARE (NEG); URINE EPITHELIAL CELLS MANY /hpf (0-5); URINE RBC 0 - 2 /hpf (0-2); URINE WBC 0 - 2 /hpf (0-6)
--- NOTE | 2017-09-20 04:49 | CT ---
EXAM: CT Abdomen and Pelvis Without Intravenous Contrast EXAM DATE/TIME: 09/20/2017 3:18 AM CLINICAL HISTORY: 52 years old, female; Pain; Abdominal pain; Generalized; Prior surgery; Surgery date: 6+ months TECHNIQUE: Axial computed tomography images of the abdomen and pelvis without intravenous contrast. All CT scans at this facility use one or more dose reduction techniques, viz.: automated exposure control; ma/kV adjustment per patient size (including targeted exams where dose is matched to indication; i.e. head); or iterative reconstruction technique. Coronal and sagittal reformatted images were created and reviewed. COMPARISON: Prior CT abdomen and pelvis of 2017-08-17 FINDINGS: LOWER THORAX: No infiltrate seen in the lung bases. ABDOMEN: LIVER: Pneumobilia is seen. GALLBLADDER AND BILE DUCTS: Pneumobilia is seen, most likely post operative in etiology, secondary to prior Whipple procedure. Gallbladder surgically absent. PANCREAS: Evidence of previous Whipple procedure. Remaining portions of the pancreas appears grossly unremarkable on this unenhanced exam. SPLEEN: No acute abnormality of the spleen identified. ADRENALS: Stable appearance of bilateral indeterminate adrenal lesions. The larger lesion, on the right measures 2.9 cm, and has a CT attenuation of 21 Hounsfield units, mildly higher than expected for a benign adenoma. CT features of these lesions are otherwise benign in appearance. Given the known history of malignancy, consider followup or further workup. KIDNEYS AND URETERS: No acute abnormality of the kidneys seen. No renal stones, hydronephrosis, or hydroureter seen. STOMACH AND BOWEL: Post perative changes involving the bowel. There are findings which are most likely secondary to previous Whipple procedure. Evidence of prior right hemicolectomy. Stool is noted in the portions of the left colon which remain. Otherwise, no significant abnormality of the bowel is identified. No evidence of bowel obstruction. No evidence of diffuse colitis/pancolitis. APPENDIX: Appendix has been surgically removed. PELVIS: BLADDER: Mild thickening of the bladder wall. REPRODUCTIVE: No acute abnormality of the uterus identified. No evidence of large adnexal masses. SUBPERITONEAL SPACE: Stable appearance of mild, chronic-appearing soft tissue thickening in the presacral region. ABDOMEN and PELVIS: INTRAPERITONEAL SPACE: No evidence of free intraperitoneal air or fluid. BONES/JOINTS: Bony structures appear demineralized. SOFT TISSUES: Post operative scarring involving the anterior abdominal and pelvic wall. VASCULATURE: No evidence of abdominal aortic aneurysm. No evidence of periaortic hemorrhage. LYMPH NODES: Multiple small lymph nodes seen in the small bowel mesentery, none appearing pathologically enlarged. This is a nonspecific finding. No evidence of diffuse pathologic lymphadenopathy. IMPRESSION: - Mild bladder wall thickening. This is a nonspecific finding, but can be seen with cystitis. Recommend clinical correlation. - Otherwise, no definite acute process. - Post operative changes. There is evidence of previous Whipple procedure. - Bilateral adrenal lesions. Please see above for a full description. - See above for remaining findings.
[2017-09-20] MEDS ORDERED: HYDROmorphone 0.5 mg/0.5 ml ISec IVP STA (04:56)
[2017-09-20] MEDS ORDERED: Sodium Chloride 0.9% 1,000 ML IV STA (05:34)
[2017-09-20] MEDS: Insulin Reg-LOW-Coverage SC SCH ×4 (08:00→22:22)
[2017-09-20] MEDS: Sodium Chloride 0.45% 1,000 ML IV SCH ×2 (10:00→22:32)
[2017-09-20] MEDS ORDERED: HYDROmorphone 0.5 mg/0.5 ml ISec IVP PRN ×2 (10:00→10:03)
--- NOTE | 2017-09-20 10:36 | CP.PCM.CON ---
<Tl Cohn - Last Filed: 09/20/17 11:09> History of Present Illness - History of Present Illness History of Present Illness: Tl oChn D.O. PGY-2, GI Consultation Note CC: abd pain with N/V for 2 days 52 year old female with a PMH of colon CA s/p subtotal colectomy, pancreatic CA s/p whipple procedure, uncontrolled IDDM with subsequent gastroparesis who presented to [facility] ER on 09/20/17 with complaints of abdominal pain and nausea for the last two days. GI consultation was placed for the aforementioned. Patient was seen and examined at bedside. Patient states that she had multiple episodes of vomiting, about 3-4 which was non bloody but was bilious. Patient denies recent sick contacts. Patient states that she did try to have small bits of food but was unable to tolerate it. Patient does also admit that she has been non-compliant with her diabetes management and insulin, states that she sometimes will take her sugar readings, and when she does she only does it about once a day. Otherwise patient cites no complaints. Patient's pain is improved since admission. Patient has had some bowel movements that have been Reeves 4-5. PMD: Dr. Mcclendon PMH: as above PSH: whipple, subtotal colectomy SH: smokes 1/2 to 1 ppd for multiple years, sporadic alcohol, denies illicits FH: hypertension and DM in both sides Meds: reviewed Allergies: reviewed Review of Systems - Review of Systems All systems: reviewed and no additional remarkable complaints except - Gastrointestinal Gastrointestinal: Abdominal Pain, Nausea, Vomiting Past Patient History - Infectious Disease Hx of Infectious Diseases: None - Tetanus Immunizations Tetanus Immunization: Unknown - Past Social History Smoking Status: Light Smoker < 10 Cigarettes Daily - CARDIAC Hx Cardiac Disorders: Yes Hx Hypertension: Yes - PULMONARY Hx Asthma: Yes Hx Chronic Obstructive Pulmonary Disease (COPD): Yes - NEUROLOGICAL Hx Neurological Disorder: No - HEENT Hx HEENT Problems: No - RENAL Hx Chronic Kidney Disease: No - ENDOCRINE/METABOLIC Hx Diabetes Mellitus Type 1: Yes - HEMATOLOGICAL/ONCOLOGICAL Hx Cancer: Yes (Colon) Other/Comment: colon ca - INTEGUMENTARY Hx Dermatological Problems: No - MUSCULOSKELETAL/RHEUMATOLOGICAL Hx Musculoskeletal Disorders: No Hx Falls: No - GASTROINTESTINAL Hx Gastrointestinal Disorders: Yes Hx Gastroesophageal Reflux: Yes Other/Comment: colon ca with surgery - GENITOURINARY/GYNECOLOGICAL Hx Genitourinary Disorders: No - PSYCHIATRIC Hx Psychophysiologic Disorder: No Hx Substance Use: No (use treatment) - SURGICAL HISTORY Hx Tubal Ligation: Yes Other/Comment: CA Colon - whipple,CESEREAN X 1 - ANESTHESIA Hx Anesthesia: No Hx Anesthesia Reactions: No Hx Malignant Hyperthermia: No Meds Allergies/Adverse Reactions: Allergies Allergy/AdvReac Type Severity Reaction Status Date / Time codeine Allergy VOMITING Verified 08/21/17 05:10 iodine Allergy RASH Verified 08/21/17 05:10 - Medications Medications: Current Medications Acetaminophen (Tylenol 325mg Tab) 650 mg PO Q4H PRN PRN Reason: Pain, Mild (1-3) Hydromorphone HCl (Dilaudid) 0.5 mg IVP Q4H PRN PRN Reason: Pain, moderate (4-7) Last Admin: 09/20/17 10:22 Dose: 0.5 mg Sodium Chloride (Sodium Chloride 0.45%) 1,000 mls @ 60 mls/hr IV .[id number] [facility] Insulin Human Regular (Humulin R Low) 0 units SC ACHS NADYA PRN Reason: Protocol Last Admin: 09/20/17 08:00 Dose: Not Given Ondansetron HCl (Zofran Inj) 4 mg IVP Q4H PRN PRN Reason: Nausea/Vomiting Last Admin: 09/20/17 10:22 Dose: 4 mg Pantoprazole Sodium (Protonix Inj) 40 mg IVP DAILY [facility] Last Admin: 09/20/17 10:22 Dose: 40 mg Physical Exam - Constitutional Appears: Non-toxic, No Acute Distress - Head Exam Head Exam: ATRAUMATIC, NORMOCEPHALIC - Eye Exam Eye Exam: EOMI, PERRL - ENT Exam ENT Exam: Mucous Membranes Moist, Normal Oropharynx - Neck Exam Neck exam: Positive for: Normal Inspection. Negative for: Tenderness - Respiratory Exam Respiratory Exam: Clear to Auscultation Bilateral. absent: Rhonchi, Wheezes - Cardiovascular Exam Cardiovascular Exam: RRR, +S1, +S2 - GI/Abdominal Exam GI & Abdominal Exam: Normal Bowel Sounds, Soft, Tenderness (epigastric). absent : Distended, Firm, Guarding - Extremities Exam Extremities exam: Negative for: calf tenderness, pedal edema - Neurological Exam Neurological exam: Alert, Oriented x3 - Skin Skin Exam: Dry, Warm Results - Vital Signs Recent Vital Signs: Last Vital Signs Temp 98.6 F 09/20/17 03:10 Pulse 80 09/20/17 06:06 Resp 16 09/20/17 06:06 BP 133/89 09/20/17 06:06 Pulse Ox 98 09/20/17 06:06 - Labs Result Diagrams: 09/20/17 03:15 09/20/17 03:15 Labs: Laboratory Results - last 24 hr 09/20/17 07:58 POC Glucose (mg/dL) 279 H Assessment & Plan - Assessment and Plan (Free Text) Assessment: 52 year old female with a PMH of colon CA, pancreatic CA s/p whipple procedure, uncontrolled IDDM with subsequent gastroparesis who presented with complaints of abdominal pain and nausea for the last two days. Plan: Abd pain with N/V Gastroparesis IDDM complicated by medication noncompliance Supportive care at this time IVF hydration Anti-emetics PRN GI ppx with PPI Avoid opioid pain medication as it can exacerbation/worsen symptoms Had an extended discussion with patient at bedside about diabetes and the pathophysiology of hyperglycemia as it relates to gastroparesis, peristalsis, and her symptomatology and how appropriate diabetes management, weight loss, and exercise would have a significant impact on her well being Patient verbalized understanding and agreement, amenable to making lifestyle changes Patient will need tighter glycemic control Recommend supervisor pleating evaluation Discussed with fellow and attending physician We will follow with you Thank you for the pleasure of participating in the care of this patient. - Date & Time Date: 09/20/17 Time: 10:45 <Martinez Rincon - Last Filed: 09/21/17 08:40> Meds - Medications Medications: Current Medications Acetaminophen (Tylenol 325mg Tab) 650 mg PO Q4H PRN PRN Reason: Pain, Mild (1-3) Hydromorphone HCl (Dilaudid) 1 mg IVP Q4H PRN PRN Reason: Pain, severe (8-10) Last Admin: 09/21/17 04:33 Dose: 1 mg Sodium Chloride (Sodium Chloride 0.45%) 1,000 mls @ 60 mls/hr IV .[id number] [facility] Last Admin: 09/20/17 22:32 Dose: 60 mls/hr Insulin Human Regular (Humulin R Low) 0 units SC ACHS NADYA PRN Reason: Protocol Last Admin: 09/21/17 07:50 Dose: 4 units Ondansetron HCl (Zofran Inj) 4 mg IVP Q4H PRN PRN Reason: Nausea/Vomiting Last Admin: 09/21/17 04:33 Dose: 4 mg Pantoprazole Sodium (Protonix Inj) 40 mg IVP DAILY [facility] Last Admin: 09/20/17 10:22 Dose: 40 mg Results - Vital Signs Recent Vital Signs: Last Vital Signs Temp 98.5 F 09/21/17 07:30 Pulse 59 L 09/21/17 07:30 Resp 18 09/21/17 07:30 BP 137/83 09/21/17 07:30 Pulse Ox 100 09/21/17 07:30 - Labs Result Diagrams: 09/21/17 08:00 09/21/17 08:00 Labs: Laboratory Results - last 24 hr 09/20/17 09/20/17 09/20/17 11:32 16:05 21:02 WBC RBC Hgb Hct MCV MCH MCHC RDW Plt Count MPV Sodium Potassium Chloride Carbon Dioxide Anion Gap BUN Creatinine Est GFR ( Amer) Est GFR (Non-Af Amer) POC Glucose (mg/dL) 269 H 355 H 336 H Random Glucose Calcium Magnesium Total Bilirubin AST ALT Alkaline Phosphatase Total Protein Albumin Globulin Albumin/Globulin Ratio 09/21/17 09/21/17 09/21/17 02:57 07:01 08:00 WBC 3.8 L RBC 4.73 Hgb 12.7 Hct 38.8 MCV 82.0 MCH 26.8 MCHC 32.7 RDW 13.7 Plt Count 224 MPV 8.8 Sodium Potassium Chloride Carbon Dioxide Anion Gap BUN Creatinine Est GFR ( Amer) Est GFR (Non-Af Amer) POC Glucose (mg/dL) 257 H 311 H Random Glucose Calcium Magnesium Total Bilirubin AST ALT Alkaline Phosphatase Total Protein Albumin Globulin Albumin/Globulin Ratio 09/21/17 08:00 WBC RBC Hgb Hct MCV MCH MCHC RDW Plt Count MPV Sodium 136 Potassium 4.2 Chloride 102 Carbon Dioxide 27 Anion Gap 12 BUN 11 Creatinine 0.7 Est GFR ( Amer) > 60 Est GFR (Non-Af Amer) > 60 POC Glucose (mg/dL) Random Glucose 292 H Calcium 9.3 Magnesium 1.6 L Total Bilirubin 0.6 AST 16 ALT 35 Alkaline Phosphatase 107 Total Protein 7.1 Albumin 4.0 Globulin 3.1 Albumin/Globulin Ratio 1.3 Attending/Attestation - Attestation I have personally seen and examined this patient.: Yes I have fully participated in the care of the patient.: Yes I have reviewed all pertinent clinical information: Yes Notes (Text): 09/21/17 08:32 I have seen and examined patient with GI fellow and medical radiation therapist on 09/20, 9 AM. This note is being dictated later due to computer related issues. Agree with above documentation with the following additions. In brief, this is a 52 year old female with history of pancreatic cancer s/p whipple, DM, gastroparesis , colon cancer s/p subtotal colectomy who presented to hospital with complaint of persistent abdominal pain for the past 2 days. She describes associated nausea and multiple episodes of non-bloody emesis during this time. The abdominal pain is epigastric, 5/10 intensity and worse following meal consumption. Patient has had multiple recent hospitalizations with similar complaints related to gastroparesis in the setting of medication non- compliance. She checks her finger sticks once daily and claims that her usual blood glucose is in the 300 range. She denies fever/chills, weight loss, change in bowel habits, sick contacts, or recent travel. Additional physical examination: Psych: mood/affect appropriate Abdomen: obese, no palpable hepato/splenomegaly DM - uncontrolled History of pancreatic cancer s/p whipple History of colon cancer s/p subtotal colectomy Abdominal pain, vomiting - gastroparesis - Full liquid diet as tolerated - Anti-emetic therapy PRN - Patient with noted uncontrolled DM, requires strict glycemic control. Given recurrent admissions with similar issues, would suggest endocrinology evaluation with ongoing outpatient follow up. Had an extensive discussion with patient regarding potential fpc consequences of uncontrolled diabetes, she is willing to make lifestyle changes. - Continue with PPI therapy - Will continue to monitor patient clinical course
[2017-09-20] MEDS: HYDROmorphone 1 mg/ml ISec IVP PRN ×3 (12:30→20:31)
[2017-09-20 16:14] VITALS: RESP 18
--- NOTE | 2017-09-20 21:41 | HP ---
HISTORY OF PRESENT ILLNESS: I know Marizol very well from many admissions to [facility]. She has abdominal pain and gastroparesis that comes on and off. She is back again, came to the emergency room yesterday. She had abdominal pain for 2 days that would not go away, also nausea and vomiting, could not stop throwing up. She does have a history of diabetic gastroparesis, colon cancer, pancreatic cancer, diabetes, asthma and she is not feeling well. PAST MEDICAL AND SURGICAL HISTORY: She has a past medical history of chronic opioid use and subtotal colectomy with postprocedure history. Hypertension, COPD, asthma, diabetes, colon cancer, colon surgery, gastroesophageal reflux, also and Whipple's. ALLERGIES: TO CODEINE AND IODINE. FAMILY HISTORY: Hypertension and diabetes in the family. SOCIAL HISTORY: She still smokes. No drinking and no drugs at this time. No alcohol. She did go to substance abuse, but does not use now, she went through the treatment no more. MEDICATIONS: She takes Metaxall, oxycodone, Januvia, Vasotec, Pepcid, hydroxyzine, Lantus, Glucophage, potassium, and Zocor. REVIEW OF SYSTEMS: She is tired. No acute vision changes or hearing changes. No shortness of breath or cough. No chest pain or palpitations. She has severe abdominal pain, cramping. There is no nausea and vomiting. No constipation or diarrhea. No problems with urinating. No back pain. No rashes or ulcers. No headache or dizziness. No facial droop. No increase in urination. No easy bleeding. No anxiety. No depression. PHYSICAL EXAMINATION: VITAL SIGNS: She has 98.6 temperature, 93 pulse, 16 respiratory rate, 148/96 blood pressure, 98% O2 sat. HEENT: Head is atraumatic, normocephalic. Extraocular muscles are intact. Pupils are equal, round, and reactive to light and accommodation. Throat is dry. NECK: Supple. HEART: Regular rate. Normal S1 and S2. LUNGS: Decreased breath sounds, but clear to auscultation. ABDOMEN: Distended. Decreased bowel sounds were present, although she tells me she is not passing any gas, no bowel movement, and she is very tender all over the belly, discomfort. No palpable masses. No guarding. No rebound. Just discomfort everywhere, she is on this many times before. EXTREMITIES: No edema. NEUROLOGIC: GCS is 15. Cranial nerves II through XII grossly intact. Alert and oriented x3. SKIN: Warm and dry. LYMPHATIC: Thyroid midline. No palpable appreciable lymphadenopathy. LABORATORY DATA: She had multiple tests; 3.5 white count, 13.8 hemoglobin, 41.4 hematocrit with 275 platelets. 136 sodium, potassium 4, BUN 12, creatinine 0.6, GFR is greater than 60, sugar is 279, calcium is 9.7, magnesium 1.3, total bili is 0.7. AST is 23, ALT is 32, alk phos is 122, total protein 7.7, albumin is 4.4, amylase is 66, and lipase is 50. Urine; is not , many epithelial, rare bacteria. Positive opioids on her drug screen. She had a CAT scan of the abdomen and pelvis. The impressions are mild bladder wall thickening, nonspecific, may be cystitis. No definite acute process, postoperative changes from previous Whipple's, and bilateral adrenal lesions. ASSESSMENT AND PLAN: She is here for intractable nausea and vomiting, intractable abdominal pain. She will have a consult with GI. She will be n.p.o. She is on IV fluids, IV Protonix, IV Zofran, insulin coverage. We will keep an eye on her blood sugars, hold her medications for now. Last blood pressure was 133/89. When she start taking pills, we will put back on her blood pressure meds. We will continue with aggressive treatment and care. She is on observation status. Hoping she will get better in 24 hours. Mayur Mcclendon DO
[2017-09-21] MEDS: HYDROmorphone 1 mg/ml ISec IVP PRN ×4 (00:48→15:06)
--- NOTE | 2017-09-21 07:07 | CP.PCM.PN ---
<Tl Cohn - Last Filed: 09/21/17 11:08> Subjective - Date & Time of Evaluation Date of Evaluation: 09/21/17 Time of Evaluation: 06:05 - Subjective Subjective: Tl Cohn D.O. PGY-2, GI Progress Note 52 year old female with a PMH of colon CA s/p subtotal colectomy, pancreatic CA s/p whipple procedure, uncontrolled IDDM with subsequent gastroparesis who presented with complaints of abdominal pain and nausea. Patient was seen and examined at bedside and while ambulating the halls. Patient states that last night she did have an episode of bilious emesis but otherwise her abdominal pain has not been an issue anymore, only has "that uncomfortable nausea feeling. " Patient otherwise endorses no complaints. No acute overnight events. Patient states that she is having ice chips now with the hopes of having something more substantial later. Objective - Vital Signs/Intake and Output Vital Signs (last 24 hours): Temp Pulse Resp BP Pulse Ox 97.7 F 79 18 131/97 H 97 09/20/17 16:13 09/20/17 16:13 09/20/17 16:13 09/20/17 16:13 09/20/17 16:13 Intake and Output: 09/21/17 09/21/17 06:59 18:59 Intake Total 1920 Balance 1920 - Medications Medications: Current Medications Acetaminophen (Tylenol 325mg Tab) 650 mg PO Q4H PRN PRN Reason: Pain, Mild (1-3) Hydromorphone HCl (Dilaudid) 1 mg IVP Q4H PRN PRN Reason: Pain, severe (8-10) Last Admin: 09/21/17 04:33 Dose: 1 mg Sodium Chloride (Sodium Chloride 0.45%) 1,000 mls @ 60 mls/hr IV .[id number] [facility] Last Admin: 09/20/17 22:32 Dose: 60 mls/hr Insulin Human Regular (Humulin R Low) 0 units SC ACHS NADYA PRN Reason: Protocol Last Admin: 09/20/17 22:22 Dose: 3 units Ondansetron HCl (Zofran Inj) 4 mg IVP Q4H PRN PRN Reason: Nausea/Vomiting Last Admin: 09/21/17 04:33 Dose: 4 mg Pantoprazole Sodium (Protonix Inj) 40 mg IVP DAILY [facility] Last Admin: 09/20/17 10:22 Dose: 40 mg - Labs Labs: Physical Exam - Constitutional Appears: well developed, obese - Head Exam Head Exam: ATRAUMATIC, NORMOCEPHALIC - Eye Exam Eye Exam: EOMI, PERRL - ENT Exam ENT Exam: Mucous Membranes Moist, Normal Oropharynx - Neck Exam Neck exam: Positive for: Normal Inspection. Negative for: Tenderness - Respiratory Exam Respiratory Exam: Clear to Auscultation Bilateral. absent: Rhonchi, Wheezes - Cardiovascular Exam Cardiovascular Exam: RRR, +S1, +S2 - GI/Abdominal Exam GI & Abdominal Exam: Normal Bowel Sounds, Soft, NT, ND, s/p Whipple - Extremities Exam Extremities exam: Negative for: calf tenderness, pedal edema - Neurological Exam Neurological exam: Alert, Oriented x3 - Skin Skin Exam: Dry, Warm Assessment and Plan - Assessment and Plan (Free Text) Assessment: 52 year old female with a PMH of colon CA, pancreatic CA s/p whipple procedure, uncontrolled IDDM with subsequent gastroparesis who presented with complaints of abdominal pain and nausea Plan: Abd pain with N/V Gastroparesis IDDM complicated by medication noncompliance Continue supportive care and IVF hydration Continue anti-emetics PRN Continue GI ppx with PPI Avoid opioid pain medication as it can exacerbation/worsen symptoms 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 <Gerber Mejia - Last Filed: 09/21/17 11:19> Objective - Vital Signs/Intake and Output Vital Signs (last 24 hours): Temp Pulse Resp BP Pulse Ox 98.5 F 59 L 18 137/83 100 09/21/17 07:30 09/21/17 07:30 09/21/17 07:30 09/21/17 07:30 09/21/17 07:30 Intake and Output: 09/21/17 09/21/17 06:59 18:59 Intake Total 1920 Balance 1920 - Medications Medications: Current Medications Acetaminophen (Tylenol 325mg Tab) 650 mg PO Q4H PRN PRN Reason: Pain, Mild (1-3) Hydromorphone HCl (Dilaudid) 1 mg IVP Q4H PRN PRN Reason: Pain, severe (8-10) Last Admin: 09/21/17 11:06 Dose: 1 mg Sodium Chloride (Sodium Chloride 0.45%) 1,000 mls @ 60 mls/hr IV .[id number] [facility] Last Admin: 09/20/17 22:32 Dose: 60 mls/hr Insulin Human Regular (Humulin R Low) 0 units SC ACHS NADYA PRN Reason: Protocol Last Admin: 09/21/17 07:50 Dose: 4 units Metformin HCl (Glucophage) 1,000 mg PO BID [facility] Last Admin: 09/21/17 11:00 Dose: 1,000 mg Ondansetron HCl (Zofran Inj) 4 mg IVP Q4H PRN PRN Reason: Nausea/Vomiting Last Admin: 09/21/17 04:33 Dose: 4 mg Pantoprazole Sodium (Protonix Inj) 40 mg IVP DAILY [facility] Last Admin: 09/21/17 11:00 Dose: 40 mg Sitagliptin Phosphate (Januvia) 50 mg PO DAILY [facility] Last Admin: 09/21/17 11:00 Dose: 50 mg - Labs Labs: 09/21/17 08:00 09/21/17 08:00 Attending/Attestation - Attestation I have personally seen and examined this patient.: Yes I have fully participated in the care of the patient.: Yes I have reviewed all pertinent clinical information, including history, physical exam and plan: Yes Notes (Text): 09/21/17 11:17 52 year old female with a h/o colon CA s/p resection, pancreatic CA s/p whipple , poorly controlled diabetes, chronic back pain and opiate use, and gastroparesis. 1. Gastroparesis Plan: -exacerbation of gastroparesis -recommend PPI, zofran, IV hydration -recommend optimize glycemic control (inpatient and outpatient) -minimize narcotics as much as possible -bowel regimen with miralax
[2017-09-21] MEDS: Insulin Reg-LOW-Coverage SC SCH ×2 (07:50→11:58)
[2017-09-21 08:15] LABS: HEMATOCRIT 38.8 % (36.0-48.0); MEAN CORPUSCULAR HEMOGLOBIN 26.8 pg (25.0-35.0); MEAN CORPUSCULAR HGB CONC 32.7 g/dl (31.0-37.0); MEAN PLATELET VOLUME 8.8 fl (7.0-11.0); RED CELL DISTRIBUTION WIDTH 13.7 % (11.5-14.5); WHITE BLOOD COUNT 3.8 10^3/ul (4.5-11.0)
[2017-09-21 08:29] LABS: ALB/GLOB RATIO 1.3 (1.1-1.8); ALKALINE PHOSPHATASE 107 U/L (38-126); ALT/SGPT 35 U/L (7-56); AST/SGOT 16 U/L (14-36); BILIRUBIN,TOTAL 0.6 mg/dL (0.2-1.3); BLOOD UREA NITROGEN 11 mg/dL (7-21); CALCIUM 9.3 mg/dL (8.4-10.5); CARBON DIOXIDE 27 mmol/L (21-33); CHLORIDE 102 mmol/L (98-107); GFR AFRICAN-AMERICAN > 60; GLUCOSE,RANDOM 292 mg/dL (70-110); MAGNESIUM 1.6 mg/dL (1.7-2.2); POTASSIUM 4.2 mmol/L (3.6-5.0); SODIUM 136 mmol/L (132-148); TOTAL PROTEIN 7.1 g/dL (5.8-8.3)
--- NOTE | 2017-09-21 10:26 | PN ---
DATE: SUBJECTIVE: Marizol is resting in bed. No nausea or vomiting this morning. She is on clear fluids. If she can eat well for lunch and keep everything down, I will discharge her later today. I put the discharge in if it is okay with GI and she does not throw up. I will put her back on the diabetes medication also. She knows to go back to her regular medications, if she does get discharged today and hopefully she can. She is on observation status for nausea, vomiting, and abdominal pain. PHYSICAL EXAMINATION: VITAL SIGNS: Temperature 98.5, pulse 59, blood pressure 137/80, respiratory rate 18, and O2 saturation 100% on room air. HEENT: Head is atraumatic and normocephalic. HEART: Regular rate. LUNGS: Clear to auscultation with decreased breath sounds. ABDOMEN: Soft. Morbidly obese. Decreased bowel sounds, but present. No guarding. No rebound. No CVA tenderness. She tells me she is not moving her bowels and not passing gas. EXTREMITIES: No edema. LABORATORY DATA: She has a white count of 3.8, hemoglobin 12.7, hematocrit 38.8, and platelets of 224. Sodium 136, potassium 4.2, BUN 11, creatinine 0.7, GFR is greater than 60, sugars have been high at 311 and 292. She is on coverage for insulin and on IV fluids and on dextrose. Also, I will put her back on the Glucophage and Januvia. Calcium is 9.3, magnesium 1.6, total bilirubin is 0.6, AST is 16, ALT is 35, alkaline phosphatase 107, total protein 7.1, and albumin is 4. PLAN: She is being seen by GI. I am hoping I could discharge her today. We will see how she does with the rest of the day eating-dong and pain, and we will see if GI will let her go. She is here for intractable nausea and vomiting, intractable pain of the abdomen. Mayur Mcclendon DO
[2017-09-21] MEDS ORDERED: POLYETHYLENE GLYCOL 3350 17 GM/Dose PACKET PO SCH (14:45)
[2017-09-21 17:59] VITALS: BP 135/86; PULSE 64; TEMP 98.3; O2SAT 99
== END 2017-09-21 18:21 | disposition home or self-care (01) ==
LOC: ED 03:01 → ERH 05:30 → 5RNO 07:35
PROVIDERS: ADMIT Family Medicine; ATTEND Family Medicine
DX: E10.43 Type 1 diabetes mellitus with diabetic autonomic (poly)neuropathy (principal); K31.84 Gastroparesis; E10.65 Type 1 diabetes mellitus with hyperglycemia; K21.9 Gastro-esophageal reflux disease without esophagitis; J44.9 Chronic obstructive pulmonary disease, unspecified; I10 Essential (primary) hypertension; G89.29 Other chronic pain; M54.9 Dorsalgia, unspecified; F17.210 Nicotine dependence, cigarettes, uncomplicated; Z85.038 Personal history of other malignant neoplasm of large intestine; Z85.07 Personal history of malignant neoplasm of pancreas; Z91.14 Patient's other noncompliance with medication regimen; Z91.19 Patient's noncompliance with other medical treatment and regimen; Z90.49 Acquired absence of other specified parts of digestive tract; Z90.411 Acquired partial absence of pancreas; Z79.4 Long term (current) use of insulin; Z98.51 Tubal ligation status
CPT/HCPCS: 36415; 74176; 80053; 81001; 82150; 82948; 83690; 83735; 84703; 85025; 85027; 87086; 96374; 96375; 99285; C9113; G0378; G0480; J1170; J2405; J3475; J7030; J7040

== ENCOUNTER 2017-09-21 19:10 | Emergency (ER) | payer BC, OTHER ==
[2017-09-21 19:11] VITALS: BMI 34.3
[2017-09-21 19:33] VITALS: RESP 18; TEMP 98.8; O2SAT 99
[2017-09-21] MEDS ORDERED: Sodium Chloride 0.9% 1,000 ML IV STA (19:37)
--- NOTE | 2017-09-21 20:07 | ED PDOC ---
Arrival/HPI <Ruben Parker - Last Filed: 09/21/17 21:27> - General Historian: Patient - History of Present Illness Time/Duration: 1-3 hours Symptom Onset: Sudden Symptom Course: Unchanged Activities at Onset: Rest, Eating Context: Home <Doni Dumas - Last Filed: 09/21/17 23:34> - General Chief Complaint: GI Problem Time Seen by Provider: 09/21/17 19:13 - History of Present Illness Narrative History of Present Illness (Text): 09/21/17 20:23 Mrs. 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 Patient reports that she was discharged from [facility] earlier this afternoon and after arriving home she ate peas and carrots, which she immediately vomited and then vomited again a few minutes later and reports the second episode was bilious in nature. She states that she called [facility] with her complaints and was told to come to the ER. She denies fever, chills, headache, changes in vision, chest pain, palpitations , SOB, cough, wheezing, diarrhea, constipation, hematochezia, hematemesis, burning/pain with urination, rashes or any numbness/tingling/weakness of any extremity. PMD: Dr. Mcclendon (oDni Dumas) Past Medical History - Provider Review Nursing Documentation Reviewed: Yes - Travel History Have you recently traveled outside [place] w/in the past 3 mons?: No - Past History Past History: Non-Contributing - Infectious Disease Hx of Infectious Diseases: None - Tetanus Immunization Tetanus Immunization: Unknown - Cardiac Hx Cardiac Disorders: No Hx Angina: No Hx Cardiac Arrhythmia: No Hx Circulatory Problems: No Hx Congestive Heart Failure: No Hx Heart Murmur: No Hx Heart Transplant: No Hx Hypertension: Yes Hx Internal Defibrillator: No Hx Mitral Valve Prolapse: No Hx Pacemaker: No Hx Peripheral Edema: No Hx Peripheral Vascular Disease: No - Pulmonary Hx Respiratory Disorders: Yes Hx Asthma: Yes Hx Bronchitis: Yes Hx Chronic Obstructive Pulmonary Disease (COPD): Yes Hx Emphysema: No Hx Pneumonia: No Hx Respiratory Aspiration: No Hx Respiratory Tract Infection: No Hx Sleep Apnea: No Hx Tuberculosis: No - Neurological Hx Neurological Disorder: No Hx Alzheimer's Disease: No HX Cerebrovascular Accident: No Hx Dementia: No Hx Dizziness: No Hx Meningitis: No Hx Migraine: No Hx Parkinson's Disease: No Hx Seizures: No Hx Transient Ischemic Attacks (TIA): No - HEENT Hx HEENT Disorder: No Hx Blind: No Hx Cataracts: No Hx Deafness: No Hx Difficulty Chewing: No Hx Epistaxis: No Hx Glaucoma: No Hx Macular Degeneration: No - Renal Hx Renal Disorder: No Hx Dialysis: No Hx Kidney Stones: No Hx Neurogenic Bladder: No Hx Pyelonephritis: No Hx Renal Cancer: No Hx Renal Failure: No - Endocrine/Metabolic Hx Endocrine Disorders: Yes Hx Adrenal Cancer: No Hx Diabetes Insipidus: No Hx Diabetes Mellitus Type 1: Yes Hx Diabetes Mellitus Type 2: No Hx Hyperthyroidism: No Hx Hypothyroidism: No Hx Systemic Lupus Erythematosus: No - Hematological/Oncological Hx Blood Disorders: No Hx AIDS: No Hx Anemia: No Hx Cancer: Yes (colon) Hx Chemotherapy: No Hx Cirrhosis: No Hx Hemophilia: No Hx Hepatitis A: No Hx Hepatitis B: No Hx Hepatitis C: No Hx Metastasis: No Hx Shingles: No Hx Sickle Cell Disease: No Hx Unexplained Bleeding: No Other/Comment: colon ca - Integumentary Hx Dermatological Disorder: No Hx Basal Cell Carcinoma: No Hx Eczema: No Hx Melanoma: No Hx Psoriasis: No Hx Squamous Cell Carcinoma: No Other/Comment: large area of dry hard skin to right elbow - Musculoskeletal/Rheumatological Hx Musculoskeletal Disorders: No Hx Arthritis: No Hx Back Pain: Yes Hx Degenerative Joint Disease: No Hx Falls: Yes Hx Fractures: No Hx Gout: No Hx Herniated Disk: No Hx Myasthenia Gravis: No Hx Osteoarthritis: No Hx Osteomyelitis: No Hx Osteoporosis: No Hx Rhabdomyolysis: No Hx Spinal Stenosis: No Hx Unsteady Gait: No - Gastrointestinal Hx Gastrointestinal Disorders: Yes Hx Colostomy: No Hx Crohn's Disease: No Hx Diverticulitis: No Hx Gall Bladder Disease: No Hx Gastroesophageal Reflux: Yes Hx Gastrointestinal Ulcer: No Hx Ileostomy: No Hx Liver Failure: No Hx Pancreatitis: No HX Swallowing Problems: No Other/Comment: colon ca with surgery - Genitourinary/Gynecological Hx Genitourinary Disorders: No Hx Hematuria: No Hx Incontinence: No Hx Prostate Problems: No Hx Sexually Transmitted Diseases: No Hx Urinary Tract Infection: No - Psychiatric Hx Psychophysiologic Disorder: No Hx Anxiety: No Hx Bipolar Disorder: No Hx Depression: No Hx Emotional Abuse: No Hx Hallucinations: No Hx Panic Disorder: No Hx Post Traumatic Stress Disorder: No Hx Psychosis: No Hx Physical Abuse: No Hx Schizophrenia: No Hx Sexual Abuse: No Hx Substance Use: Yes - Surgical History Hx Cardiac Catheterization: No Hx Coronary Stent: No Other/Comment: CA Colon - whipple,CESEREAN X 1 - Anesthesia Hx Anesthesia: Yes Hx Anesthesia Reactions: No Hx Malignant Hyperthermia: No - Suicidal Assessment Feels Threatened In Home Enviroment: No <Doni Dumas - Last Filed: 09/21/17 23:34> Family/Social History - Physician Review Nursing Documentation Reviewed: Yes Family/Social History: No Known Family HX Smoking Status: Heavy Smoker > 10 Cigarettes Daily Hx Alcohol Use: Yes Hx Substance Use: Yes Hx Substance Use Treatment: Yes <Doni Dumas - Last Filed: 09/21/17 23:34> Allergies/Home Meds <Ruben Parker - Last Filed: 09/21/17 21:27> <Doni Dumas - Last Filed: 09/21/17 23:34> Allergies/Adverse Reactions: Allergies codeine Allergy (Verified 08/21/17 05:10) VOMITING iodine Allergy (Verified 08/21/17 05:10) RASH Home Medications: Home Meds Medication Instructions Recorded Confirmed Metaxalone [Metaxall] 800 mg PO QID 07/22/17 09/21/17 Oxycodone HCl [Oxycodone HCl ER] 80 mg PO Q12 07/22/17 09/21/17 SITagliptin [Januvia] 50 mg PO DAILY 07/22/17 09/21/17 Enalapril Maleate [Vasotec] 5 mg PO DAILY 08/17/17 09/21/17 Famotidine [Pepcid] 40 mg PO DAILY 08/17/17 09/21/17 Hydroxyzine Pamoate 100 mg PO DAILY 08/17/17 09/21/17 Insulin Glargine, Recombina 15 units SC HS 08/17/17 09/21/17 [Lantus] MetFORMIN [glucoPHAGE] 1,000 mg PO BID 08/17/17 09/21/17 Potassium Chloride [Klor-Con] 20 meq PO DAILY 08/17/17 09/21/17 Simvastatin [Zocor] 20 mg PO DAILY 08/17/17 09/21/17 Review of Systems - Physician Review All systems were reviewed & negative as marked: Yes - Review of Systems Constitutional: Normal. absent: Fevers, Night Sweats Eyes: Normal. absent: Vision Changes ENT: Normal Respiratory: Normal. absent: SOB, Cough Cardiovascular: Normal. 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 absent: Normal, Constipation, Diarrhea, Hematochezia, Hematemesis Genitourinary Female: Normal. absent: Dysuria Musculoskeletal: Normal. absent: Back Pain, Neck Pain Skin: Normal. absent: Rash Neurological: Normal. absent: Headache, Dizziness Endocrine: Normal. absent: Polyuria, Polydipsia Hemo/Lymphatic: Normal Psychiatric: Normal <Doni Dumas - Last Filed: 09/21/17 23:34> Physical Exam Vital Signs Reviewed: Yes Temperature: Afebrile Blood Pressure: Normal Pulse: Regular Respiratory Rate: Normal Appearance: Positive for: Well-Appearing, Non-Toxic, Comfortable Pain Distress: None Mental Status: Positive for: Alert and Oriented X 3 Finger Stick Blood Glucose: 211 - Systems Exam Head: Present: Atraumatic, Normocephalic Pupils: Present: PERRL Extroacular Muscles: Present: EOMI Conjunctiva: Present: Normal Mouth: Present: Moist Mucous Membranes Neck: Present: Normal Range of Motion Respiratory/Chest: Present: Clear to Auscultation, Good Air Exchange. No: Respiratory Distress, Accessory Muscle Use Cardiovascular: Present: Regular Rate and Rhythm, Normal S1, S2. No: Murmurs Abdomen: Present: Tenderness (Epigastric and LUQ), Normal Bowel Sounds, Scars ( Umbilical scar to hypogastric area). No: Distention, Peritoneal Signs, Rebound , Guarding, McBurney's Point Tender, Rovsing's Sign Present, Hernias, Feeding Tubes, Ostomy Tubes, Mass/Organomegaly Back: Present: Normal Inspection. No: CVA Tenderness, Midline Tenderness, Paraspinal Tenderness, Pain with Leg Raise Upper Extremity: Present: Normal Inspection, Normal ROM, NORMAL PULSES. No: Cyanosis, Edema Lower Extremity: Present: Normal Inspection, NORMAL PULSES, Normal ROM. No: Edema, CALF TENDERNESS, Buffy's Sign Neurological: Present: GCS=15, CN II-XII Intact, Speech Normal Skin: Present: Warm, Dry, Normal Color. No: Rashes Lymphatic: No: Cervical Adenopathy Psychiatric: Present: Alert, Oriented x 3, Normal Insight, Normal Concentration <Doni Dumas - Last Filed: 09/21/17 23:34> Vital Signs Temp Pulse Resp BP Pulse Ox 09/21/17 23:11 82 18 135/84 99 09/21/17 21:11 84 18 140/85 99 09/21/17 19:11 98.8 F 79 18 142/98 H 99 Medical Decision Making <Ruben Parker - Last Filed: 09/21/17 21:27> - Lab Interpretations I have reviewed the lab results: Yes Interpretation: All labs normal <Doni Dumas - Last Filed: 09/21/17 23:34> ED Course and Treatment: 09/21/17 21:28 Patient Seen With Resident: In agreement with resident note which contains more details about the patient. Patient was seen and evaluated with resident. Came up with plan and treatment together.. A 52 year old year old male with colon cancer, ancreatic cancer s/p whipple procedure, HTN, IDDM2, HTN, HLD, and chronic abdominal pain, presents to the emergency department complaining of nausea and vomiting. The patient's treatment plan includes labs and zofran. 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 Plan: -CBC, CMP, UA and Beta-Hydroxybutyrate -Zofran IVP -1L NS Bolus -Reassess and disposition Prior Visits: Patient seen and evaluated on multiple occasions for intractable abdominal pain/ vomiting (Doni Dumas) - Lab Interpretations Lab Results: 09/21/17 21:02 09/21/17 21:02 Lab Results 09/21/17 21:02: Sodium 139, Potassium 4.3, Chloride 102, Carbon Dioxide 27, Anion Gap 14, BUN 11, Creatinine 0.7, Est GFR ( Amer) > 60, Est GFR (Non- Af Amer) > 60, Random Glucose 184 H, Calcium 9.3, Total Bilirubin 0.5, AST 17, ALT 27, Alkaline Phosphatase 97, Total Protein 6.8, Albumin 3.9, Globulin 2.9, Albumin/Globulin Ratio 1.4 09/21/17 21:02: WBC 4.4 L, RBC 4.43, Hgb 12.0, Hct 36.4, MCV 82.2, MCH 27.1, MCHC 33.0, RDW 13.8, Plt Count 239, MPV 9.3, Gran % 44.6 L, Lymph % (Auto) 46.7 H, [place] % (Auto) 7.3 H, Eos % (Auto) 0.9 L, Baso % (Auto) 0.5, Gran # 1.97, Lymph # 2.1, [place] # 0.3, Eos # 0.0, Baso # 0.02 09/21/17 19:38: POC Glucose (mg/dL) 211 H - Medication Orders Current Medication Orders: Discontinued Medications Hydromorphone HCl (Dilaudid) 0.5 mg IM STAT STA Stop: 09/21/17 22:16 Last Admin: 09/21/17 23:06 Dose: 0.5 mg MAR Pain Assessment Document 09/21/17 23:06 JO (Rec: 09/21/17 23:07 [id number] Pain Reassessment Is this a pain reassessment? No Sleep Is patient sleeping during reassessment? No Presence of Pain Presence of Pain Yes Pain Scale Used Pain Scale Used Numeric Location Pain Location Body Site Abdomen Description Intensity of Pain at present 7 IM Administration Charges Document 09/21/17 23:06 JO (Rec: 09/21/17 23:07 [id number][facility] Injection Site MAR Injection Site Left Deltoid Charges for Administration # of IM Administrations 1 Sodium Chloride (Sodium Chloride 0.9%) 1,000 mls @ 999 mls/hr IV .Q1H1M STA Stop: 09/21/17 20:37 Last Admin: 09/21/17 21:16 Dose: Ondansetron HCl (Zofran Inj) 4 mg IM STAT STA Stop: 09/21/17 21:10 Last Admin: 09/21/17 21:21 Dose: 4 mg IM Administration Charges Document 09/21/17 21:21 JOL (Rec: 09/21/17 21:21 [facility] [id number]) Injection Site MAR Injection Site Left Deltoid Charges for Administration # of IM Administrations 1 Ondansetron HCl (Zofran Inj) 8 mg IM STAT STA Stop: 09/21/17 22:57 Last Admin: 09/21/17 23:07 Dose: 8 mg IM Administration Charges Document 09/21/17 23:07 JOL (Rec: 09/21/17 23:07 [facility] [id number]) Injection Site MAR Injection Site Left Deltoid Charges for Administration # of IM Administrations 1 Oral Electrolytes (Pedialyte) 1,000 ml PO ONCE ONE Stop: 09/21/17 21:15 Last Admin: 09/21/17 23:07 Dose: Not Given Non-Admin Reason: Patient Refused - Scribe Statement The provider has reviewed the documentation as recorded by the Scribe <Ruben Parker - Last Filed: 09/21/17 21:27> <Doni Dumas - Last Filed: 09/21/17 23:34> - Scribe Statement Lindasy Richards Provider Scribe Attestation: All medical record entries made by the Scribe were at my direction and personally dictated by me. I have reviewed the chart and agree that the record accurately reflects my personal performance of the history, physical exam, medical decision making, and the department course for this patient. I have also personally directed, reviewed, and agree with the discharge instructions and disposition. (Ruben Parker) Disposition/Present on Arrival <Ruben Parker - Last Filed: 09/21/17 21:27> - Present on Arrival Any Indicators Present on Arrival: No History of DVT/PE: No History of Uncontrolled Diabetes: Yes Urinary Catheter: No History of Decub. Ulcer: No History Surgical Site Infection Following: None - Disposition Have Diagnosis and Disposition been Completed?: Yes Disposition Time: 22:16 Patient Plan: Discharge <Doni Dumas - Last Filed: 09/21/17 23:34> - Disposition Diagnosis: Abdominal pain, Vomiting Disposition: HOME/ ROUTINE Condition: GOOD Discharge Instructions (ExitCare): Dehydration (ED), Acute Nausea and Vomiting (ED), Abdominal Pain (ED) Additional Instructions: Mrs. Parker, thank you for letting us take care of you today. Your provider was Dr. Parker. You were treated for abdominal pain and vomiting. The emergency medical care you received today was directed at your acute symptoms. If you were prescribed any medication, please fill it and take as directed. It may take several days for your symptoms to resolve. Return to the Emergency Department if your symptoms worsen, do not improve, or if you have any other problems. Please contact your doctor or call one of the physicians/clinics you have been referred to that are listed on the Patient Visit Information form that is included in your discharge packet. Bring any paperwork you were given at discharge with you along with any medications you are taking to your follow up visit. Our treatment cannot replace ongoing medical care by a primary care provider (PCP) outside of the emergency department. PLEASE FOLLOW UP WITH YOUR PRIMARY CARE DOCTOR WITHIN ONE WEEK Thank you for allowing the [facility] team to be part of your care today. Referrals: Ronnell Sue MD [Primary Care Provider] - Follow up with primary Forms: [employer] (Bulgarian)
[2017-09-21] MEDS ORDERED: Pedialyte 1000 ml PO ONE (21:14)
[2017-09-21 21:24] LABS: BASO # 0.02 K/mm3 (0.0-2.0); BASO % 0.5 % (0.0-3.0); EOS % 0.9 % (1.5-5.0); GRAN # 1.97 (1.4-6.5); GRAN % 44.6 % (50.0-68.0); HEMATOCRIT 36.4 % (36.0-48.0); LYMPH # 2.1 (1.2-3.4); LYMPH % 46.7 % (22.0-35.0); MEAN CELL VOLUME 82.2 fl (80.0-105.0); MEAN CORPUSCULAR HEMOGLOBIN 27.1 pg (25.0-35.0); MEAN PLATELET VOLUME 9.3 fl (7.0-11.0); MONO # 0.3 (0.1-0.6); MONO % 7.3 % (1.0-6.0); RED CELL DISTRIBUTION WIDTH 13.8 % (11.5-14.5); WHITE BLOOD COUNT 4.4 10^3/ul (4.5-11.0)
[2017-09-21 21:25] LABS: ALB/GLOB RATIO 1.4 (1.1-1.8); ALKALINE PHOSPHATASE 97 U/L (38-126); ALT/SGPT 27 U/L (7-56); AST/SGOT 17 U/L (14-36); BILIRUBIN,TOTAL 0.5 mg/dL (0.2-1.3); BLOOD UREA NITROGEN 11 mg/dL (7-21); CALCIUM 9.3 mg/dL (8.4-10.5); CARBON DIOXIDE 27 mmol/L (21-33); CHLORIDE 102 mmol/L (98-107); GFR AFRICAN-AMERICAN > 60; GLUCOSE,RANDOM 184 mg/dL (70-110); POTASSIUM 4.3 mmol/L (3.6-5.0); SODIUM 139 mmol/L (132-148); TOTAL PROTEIN 6.8 g/dL (5.8-8.3)
[2017-09-21] MEDS ORDERED: HYDROmorphone 0.5 mg/0.5 ml ISec IM STA (22:15)
[2017-09-21 23:28] VITALS: BP 135/84; PULSE 82
== END 2017-09-21 23:25 | disposition home or self-care (01) ==
LOC: ED 19:10
DX: R10.9 Unspecified abdominal pain (principal); R11.2 Nausea with vomiting, unspecified; E78.5 Hyperlipidemia, unspecified; I10 Essential (primary) hypertension; E11.9 Type 2 diabetes mellitus without complications; Z79.4 Long term (current) use of insulin; F17.210 Nicotine dependence, cigarettes, uncomplicated
CPT/HCPCS: 80053; 82010; 82948; 85025; 96372; 99285; J1170; J2405

== ENCOUNTER 2017-09-22 03:46 | Inpatient (IN) | payer BC, OTHER ==
[2017-09-22 03:46] VITALS: BMI 34.3
[2017-09-22] MEDS ORDERED: Sodium Chloride 0.9% 1,000 ML IV STA (04:13)
--- NOTE | 2017-09-22 04:22 | ED PDOC ---
Arrival/HPI - General Historian: Patient - History of Present Illness Time/Duration: 1-3 hours Symptom Onset: Sudden Symptom Course: Worsening Activities at Onset: Rest Context: Home - General Chief Complaint: GI Problem - History of Present Illness Narrative History of Present Illness (Text): 09/22/17 04:16 Mrs. 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 Patient was discharged from the hospital on 09/21 after being admitted for N/V, returned to the [facility] to be evaluated for N/V and subsequently discharged. She denies fever, chills, headache, changes in vision , chest pain, palpitations, SOB, cough, wheezing, diarrhea, constipation, hematochezia, hematemesis, burning/pain with urination, rashes or any numbness/ tingling/weakness of any extremity. (Doni Dumas) Past Medical History - Provider Review Nursing Documentation Reviewed: Yes - Travel History Have you recently traveled outside [place] w/in the past 3 mons?: No - Past History Past History: Non-Contributing - Infectious Disease Hx of Infectious Diseases: None - Tetanus Immunization Tetanus Immunization: Unknown - Cardiac Hx Cardiac Disorders: No Hx Angina: No Hx Cardiac Arrhythmia: No Hx Circulatory Problems: No Hx Congestive Heart Failure: No Hx Heart Murmur: No Hx Heart Transplant: No Hx Hypertension: Yes Hx Internal Defibrillator: No Hx Mitral Valve Prolapse: No Hx Pacemaker: No Hx Peripheral Edema: No Hx Peripheral Vascular Disease: No - Pulmonary Hx Respiratory Disorders: Yes Hx Asthma: Yes Hx Bronchitis: Yes Hx Chronic Obstructive Pulmonary Disease (COPD): Yes Hx Emphysema: No Hx Pneumonia: No Hx Respiratory Aspiration: No Hx Respiratory Tract Infection: No Hx Sleep Apnea: No Hx Tuberculosis: No - Neurological Hx Neurological Disorder: No Hx Alzheimer's Disease: No HX Cerebrovascular Accident: No Hx Dementia: No Hx Dizziness: No Hx Meningitis: No Hx Migraine: No Hx Parkinson's Disease: No Hx Seizures: No Hx Transient Ischemic Attacks (TIA): No - HEENT Hx HEENT Disorder: No Hx Blind: No Hx Cataracts: No Hx Deafness: No Hx Difficulty Chewing: No Hx Epistaxis: No Hx Glaucoma: No Hx Macular Degeneration: No - Renal Hx Renal Disorder: No Hx Dialysis: No Hx Kidney Stones: No Hx Neurogenic Bladder: No Hx Pyelonephritis: No Hx Renal Cancer: No Hx Renal Failure: No - Endocrine/Metabolic Hx Endocrine Disorders: Yes Hx Adrenal Cancer: No Hx Diabetes Insipidus: No Hx Diabetes Mellitus Type 1: Yes Hx Diabetes Mellitus Type 2: No Hx Hyperthyroidism: No Hx Hypothyroidism: No Hx Systemic Lupus Erythematosus: No - Hematological/Oncological Hx Blood Disorders: No Hx AIDS: No Hx Anemia: No Hx Cancer: Yes (colon) Hx Chemotherapy: No Hx Cirrhosis: No Hx Hemophilia: No Hx Hepatitis A: No Hx Hepatitis B: No Hx Hepatitis C: No Hx Metastasis: No Hx Shingles: No Hx Sickle Cell Disease: No Hx Unexplained Bleeding: No Other/Comment: colon ca - Integumentary Hx Dermatological Disorder: No Hx Basal Cell Carcinoma: No Hx Eczema: No Hx Melanoma: No Hx Psoriasis: No Hx Squamous Cell Carcinoma: No Other/Comment: large area of dry hard skin to right elbow - Musculoskeletal/Rheumatological Hx Musculoskeletal Disorders: No Hx Arthritis: No Hx Back Pain: Yes Hx Degenerative Joint Disease: No Hx Falls: Yes Hx Fractures: No Hx Gout: No Hx Herniated Disk: No Hx Myasthenia Gravis: No Hx Osteoarthritis: No Hx Osteomyelitis: No Hx Osteoporosis: No Hx Rhabdomyolysis: No Hx Spinal Stenosis: No Hx Unsteady Gait: No - Gastrointestinal Hx Gastrointestinal Disorders: Yes Hx Colostomy: No Hx Crohn's Disease: No Hx Diverticulitis: No Hx Gall Bladder Disease: No Hx Gastroesophageal Reflux: Yes Hx Gastrointestinal Ulcer: No Hx Ileostomy: No Hx Liver Failure: No Hx Pancreatitis: No HX Swallowing Problems: No Other/Comment: colon ca with surgery - Genitourinary/Gynecological Hx Genitourinary Disorders: No Hx Hematuria: No Hx Incontinence: No Hx Prostate Problems: No Hx Sexually Transmitted Diseases: No Hx Urinary Tract Infection: No - Psychiatric Hx Psychophysiologic Disorder: No Hx Anxiety: No Hx Bipolar Disorder: No Hx Depression: No Hx Emotional Abuse: No Hx Hallucinations: No Hx Panic Disorder: No Hx Post Traumatic Stress Disorder: No Hx Psychosis: No Hx Physical Abuse: No Hx Schizophrenia: No Hx Sexual Abuse: No Hx Substance Use: Yes - Surgical History Hx Cardiac Catheterization: No Hx Coronary Stent: No Other/Comment: CA Colon - whipple,CESEREAN X 1 - Anesthesia Hx Anesthesia: Yes Hx Anesthesia Reactions: No Hx Malignant Hyperthermia: No - Suicidal Assessment Feels Threatened In Home Enviroment: No Family/Social History - Physician Review Nursing Documentation Reviewed: Yes Family/Social History: No Known Family HX Smoking Status: Heavy Smoker > 10 Cigarettes Daily Hx Alcohol Use: Yes Hx Substance Use: Yes Hx Substance Use Treatment: Yes Allergies/Home Meds Allergies/Adverse Reactions: Allergies codeine Allergy (Verified 08/21/17 05:10) VOMITING iodine Allergy (Verified 08/21/17 05:10) RASH Home Medications: Home Meds Medication Instructions Recorded Confirmed Metaxalone [Metaxall] 800 mg PO QID 07/22/17 09/22/17 Oxycodone HCl [Oxycodone HCl ER] 80 mg PO Q12 07/22/17 09/22/17 SITagliptin [Januvia] 50 mg PO DAILY 07/22/17 09/22/17 Enalapril Maleate [Vasotec] 5 mg PO DAILY 08/17/17 09/22/17 Famotidine [Pepcid] 40 mg PO DAILY 08/17/17 09/22/17 Hydroxyzine Pamoate 100 mg PO DAILY 08/17/17 09/22/17 Insulin Glargine, Recombina 15 units SC HS 08/17/17 09/22/17 [Lantus] MetFORMIN [glucoPHAGE] 1,000 mg PO BID 08/17/17 09/22/17 Potassium Chloride [Klor-Con] 20 meq PO DAILY 08/17/17 09/22/17 Simvastatin [Zocor] 20 mg PO DAILY 08/17/17 09/22/17 Review of Systems - Physician Review All systems were reviewed & negative as marked: Yes - Review of Systems Constitutional: Normal Eyes: Normal ENT: Normal Respiratory: Normal Cardiovascular: Normal Gastrointestinal: Abdominal Pain, Nausea, Vomiting. absent: Normal, Constipation, Diarrhea, Hematochezia, Hematemesis Genitourinary Female: Normal Musculoskeletal: Normal Skin: Normal Neurological: Normal Endocrine: Normal Hemo/Lymphatic: Normal Psychiatric: Normal Physical Exam Vital Signs Reviewed: Yes Temperature: Afebrile Blood Pressure: Normal Pulse: Regular Respiratory Rate: Normal Appearance: Positive for: Well-Appearing, Non-Toxic, Comfortable Pain Distress: None Mental Status: Positive for: Alert and Oriented X 3 - Systems Exam Head: Present: Atraumatic, Normocephalic Pupils: Present: PERRL Extroacular Muscles: Present: EOMI Conjunctiva: Present: Normal Mouth: Present: Moist Mucous Membranes Neck: Present: Normal Range of Motion Respiratory/Chest: Present: Clear to Auscultation, Good Air Exchange. No: Respiratory Distress, Accessory Muscle Use Cardiovascular: Present: Regular Rate and Rhythm, Normal S1, S2. No: Murmurs Abdomen: Present: Tenderness (LUQ and epigastric), Normal Bowel Sounds, Scars ( Umbilical to hypogastric area). No: Distention, Peritoneal Signs, Rebound, Guarding, McBurney's Point Tender, Rovsing's Sign Present Back: Present: Normal Inspection. No: CVA Tenderness, Midline Tenderness, Paraspinal Tenderness Upper Extremity: Present: Normal Inspection. No: Cyanosis, Edema Lower Extremity: Present: Normal Inspection. No: Edema Neurological: Present: GCS=15, CN II-XII Intact, Speech Normal Skin: Present: Warm, Dry, Normal Color. No: Rashes Psychiatric: Present: Alert, Oriented x 3, Normal Insight, Normal Concentration Vital Signs Temp Pulse Resp BP Pulse Ox 09/22/17 03:46 98.4 F 60 18 115/77 97 Medical Decision Making ED Course and Treatment: 09/22/17 04:23 Impression: 52 year old AAF with a past medical history significant for colon cancer, pancreatic cancer s/p whipple procedure, HTN, IDDM2, HTN, HLD, and chronic abdominal pain who presents [place] [facility] with a chief complaint of nausea and two episodes of NBNB vomiting after she was discharged from the [facility] 3 hours 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 Mcclendon who agrees to admit patient under his service for intractable N/V (Doni Dumas) Patient Seen With Resident: In agreement with resident note which contains more details about the patient. Patient was seen and evaluated with resident. Came up with plan and treatment together. A 52 year old female with nausea, vomiting and chronic abdominal pain. Additional HPI as noted by resident. On physical exam, patient has LUQ and epigastric abdominal tenderness and abdominal scar from umbilical to hypogastric area. Will give patient Zofran and IV fluids. (Ruben Parker) - Medication Orders Current Medication Orders: Sodium Chloride (Sodium Chloride 0.9%) 1,000 mls @ 999 mls/hr IV .Q1H1M STA Stop: 09/22/17 05:13 Last Admin: 09/22/17 04:26 Dose: 999 mls/hr eMAR Start Stop Document 09/22/17 04:26 SC (Rec[facility] 09[facility]22[facility]17 [id number] Intravenous Solution Start Date 09/22/17 Start Time 04:26 End Date 09/22/17 End time 05:30 Total Infusion Time 64 Sodium Chloride (Sodium Chloride 0.9%) 1,000 mls @ 100 mls/hr IV .Q10H [facility] Insulin Detemir (Levemir) 8 unit SC QAM [facility] Insulin Detemir (Levemir) 7 unit SC HS [facility] Insulin Human Regular (Humulin R Med) 0 units SC Q6H [facility] PRN Reason: Protocol Ondansetron HCl (Zofran Inj) 4 mg IVP Q4H PRN PRN Reason: Nausea/Vomiting Pantoprazole Sodium (Protonix Inj) 40 mg IVP Q12 [facility] Discontinued Medications Ondansetron HCl (Zofran Inj) 4 mg IVP STAT STA Stop: 09/22/17 04:14 Last Admin: 09/22/17 04:26 Dose: 4 mg IVP Administration Document 09/22/17 04:26 [place] (Rec: 09/22/17 04:26 [id number] Charges for Administration # of IVP Administrations 1 Disposition/Present on Arrival - Present on Arrival Any Indicators Present on Arrival: No History of DVT/PE: No History of Uncontrolled Diabetes: Yes Urinary Catheter: No History of Decub. Ulcer: No History Surgical Site Infection Following: None - Disposition Have Diagnosis and Disposition been Completed?: Yes Disposition Time: 04:28 Patient Plan: Admission - Disposition Diagnosis: Abdominal pain, Vomiting, Uncontrolled diabetes mellitus Disposition: HOSPITALIZED Condition: STABLE
[2017-09-22] MEDS ORDERED: Sodium Chloride 0.9% 1,000 ML IV SCH ×2 (04:45→15:15)
[2017-09-22] MEDS ORDERED: Insulin Reg-MEDIUM-Coverage SC SCH (04:45)
[2017-09-22] MEDS ORDERED: Influenza Vaccine 60 mcg/0.5 mL SYR (4YR UP) IM ONE (07:24)
[2017-09-22] MEDS ORDERED: Pneumococcal 23-Valent Vaccine IM ONE (07:24)
[2017-09-22] MEDS ORDERED: Morphine 2 mg/ml ISec IVP PRN ×2 (07:28→07:37)
[2017-09-22] MEDS: Insulin Reg-MEDIUM-Coverage SC SCH ×3 (07:45→18:05)
[2017-09-22] MEDS: Sodium Chloride 0.45% 1,000 ML IV SCH (07:56)
[2017-09-22 08:46] LABS: ALB/GLOB RATIO 1.5 (1.1-1.8); ALKALINE PHOSPHATASE 104 U/L (38-126); ALT/SGPT 30 U/L (7-56); AST/SGOT 16 U/L (14-36); BILIRUBIN,TOTAL 0.6 mg/dL (0.2-1.3); BLOOD UREA NITROGEN 12 mg/dL (7-21); CALCIUM 9.3 mg/dL (8.4-10.5); CARBON DIOXIDE 26 mmol/L (21-33); CHLORIDE 103 mmol/L (98-107); GFR AFRICAN-AMERICAN > 60; SODIUM 138 mmol/L (132-148); TOTAL PROTEIN 6.6 g/dL (5.8-8.3)
[2017-09-22 08:58] LABS: GLUCOSE,RANDOM 304 mg/dL (70-110)
[2017-09-22] MEDS: Insulin Detemir 100 units/ml Vial (Levemir) SC SCH (09:13)
--- NOTE | 2017-09-22 09:36 | CP.PCM.CON ---
History of Present Illness - History of Present Illness History of Present Illness: Tl Cohn D.O. PGY-2, GI Consultation Note CC: abd pain with intractable N/V 52 year old female with a PMH of colon CA s/p subtotal colectomy, pancreatic CA s/p whipple procedure, uncontrolled IDDM with gastroparesis and who was recently admitted for abdominal pain with N/V, discharged yesterday, who now presents the same complaints. GI consultation was placed for the aforementioned. Patient states that shortly upon discharge, after having tolerated her dinner, she threw it right up when she got home. Patient states that she had about 3 episodes of emesis subsequent to this. Patient presented back to the ER for these complaints at around 8pm yesterday and was sent home after receiving a 1L NS bolus and zofran. Patient went home but states that she had subsequent episodes of abdominal pain and N/V at 2am and 3am this morning and so she presented back again and was admitted. Patient at this time states that she still is having some discomfort. Some of the episodes of vomiting were bilious in nature. PMD: Dr. Mcclendon PMH: as above PSH: whipple, subtotal colectomy SH: smokes 1/2 to 1 ppd for multiple years, sporadic alcohol, denies illicits FH: hypertension and DM in both sides Meds: reviewed Allergies: reviewed Review of Systems - Review of Systems All systems: reviewed and no additional remarkable complaints except - Gastrointestinal Gastrointestinal: Abdominal Pain, Nausea, Vomiting Past Patient History - Infectious Disease Hx of Infectious Diseases: None - Tetanus Immunizations Tetanus Immunization: Unknown - Past Social History Smoking Status: Current Some Days Smoker - CARDIAC Hx Cardiac Disorders: Yes Hx Angina: No Hx Cardia Arrhythmia: No Hx Circulatory Problems: No Hx Congestive Heart Failure: No Hx Heart Murmur: No Hx Heart Transplant: No Hx Hypercholesterolemia: Yes Hx Hypertension: Yes Hx Internal Defibrillator: No Hx Mitral Valve Prolapse: No Hx Pacemaker: No Hx Peripheral Edema: No Hx Peripheral Vascular Disease: No - PULMONARY Hx Respiratory Disorders: Yes Hx Asthma: Yes Hx Bronchitis: Yes Hx Chronic Obstructive Pulmonary Disease (COPD): No (denies) Hx Emphysema: No Hx Pneumonia: No Hx Respiratory Aspiration: No Hx Respiratory Tract Infection: No Hx Sleep Apnea: No Hx Tuberculosis: No - NEUROLOGICAL Hx Neurological Disorder: No Hx Alzheimer's Disease: No HX Cerebrovascular Accident: No Hx Dementia: No Hx Dizziness: No Hx Meningitis: No Hx Migraine: No Hx Parkinson's Disease: No Hx Seizures: No Hx Transient Ischemic Attacks (TIA): No - HEENT Hx HEENT Problems: No (wears glasses) Hx Blind: No Hx Cataracts: No Hx Deafness: No Hx Difficulty Chewing: No Hx Epistaxis: No Hx Glaucoma: No Hx Macular Degeneration: No - RENAL Hx Chronic Kidney Disease: No Hx Dialysis: No Hx Kidney Stones: No Hx Neurogenic Bladder: No Hx Pyelonephritis: No Hx Renal (Kidney) Cancer: No Hx Renal Failure: No - ENDOCRINE/METABOLIC Hx Endocrine Disorders: Yes Hx Adrenal Cancer: No Hx Diabetes Insipidus: No Hx Diabetes Mellitus Type 1: Yes Hx Diabetes Mellitus Type 2: No Hx Hyperthyroidism: No Hx Hypothyroidism: No Hx Systemic Lupus Erythematosus: No - HEMATOLOGICAL/ONCOLOGICAL Hx Blood Disorders: Yes Hx AIDS: No Hx Anemia: No Hx Cancer: Yes (colon) Hx Chemotherapy: No Hx Cirrhosis: No Hx Hemophilia: No Hx Hepatitis A: No Hx Hepatitis B: No Hx Hepatitis C: No Hx Metastesis: No Hx Shingles: No Hx Sickle Cell Disease: No Hx Unexplained Bleeding: No Other/Comment: pancreatic and colon ca - INTEGUMENTARY Hx Dermatological Problems: No Hx Basil Cell: No Hx Eczema: No Hx Melanoma: No Hx Psoriasis: No Hx Squamous Cell: No Other/Comment: large area of dry hard skin to right elbow - MUSCULOSKELETAL/RHEUMATOLOGICAL Hx Musculoskeletal Disorders: Yes Hx Arthritis: Yes (b/l knees) Hx Degenerative Joint Disease: Yes Hx Falls: No Hx Fractures: Yes (right pinky) Hx Unsteady Gait: Yes (cane) - GASTROINTESTINAL Hx Gastrointestinal Disorders: Yes Hx Colostomy: No Hx Crohn's Disease: No Hx Diverticulitis: No Hx Gall Bladder Disease: No Hx Gastroesophageal Reflux: Yes Hx Ileostomy: No Hx Liver Failure: No Hx Pancreatitis: No HX Swallowing Problems: No Hx Ulcer: Yes Other/Comment: colon ca with surgery - GENITOURINARY/GYNECOLOGICAL Hx Genitourinary Disorders: Yes Hx Hematuria: No Hx Incontinence: No Hx Sexually Transmitted Disorders: No Hx Urinary Tract Infection: Yes - PSYCHIATRIC Hx Psychophysiologic Disorder: No Hx Anxiety: No Hx Bipolar Disorder: No Hx Depression: No Hx Emotional Abuse: No Hx Hallucinations: No Hx Panic Symptoms: No Hx Paranoia: No Hx Post Traumatic Stress Disorder: No Hx Psychosis: No Hx Physical Abuse: No Hx Schizophrenia: No Hx Sexual Abuse: No - SURGICAL HISTORY Hx Surgeries: Yes (whipple, colon resection) Hx Cardiac Catheterization: No Hx Coronary Stent: No Other/Comment: CA Colon - whipple,CESEREAN X 1 - ANESTHESIA Hx Anesthesia: Yes Hx Anesthesia Reactions: No Hx Malignant Hyperthermia: No Meds Allergies/Adverse Reactions: Allergies Allergy/AdvReac Type Severity Reaction Status Date / Time codeine Allergy VOMITING Verified 08/21/17 05:10 iodine Allergy RASH Verified 08/21/17 05:10 - Medications Medications: Current Medications Sodium Chloride (Sodium Chloride 0.45%) 1,000 mls @ 80 mls/hr IV .[id number] [facility] Last Admin: 09/22/17 07:56 Dose: 80 mls/hr Insulin Detemir (Levemir) 8 unit SC QAM [facility] Last Admin: 09/22/17 09:13 Dose: 8 unit Insulin Detemir (Levemir) 7 unit SC HS [facility] Insulin Human Regular (Humulin R Med) 0 units SC Q6 [facility] PRN Reason: Protocol Last Admin: 09/22/17 07:45 Dose: 5 units Lisinopril (Zestril) 5 mg PO DAILY [facility] Last Admin: 09/22/17 09:12 Dose: 5 mg Metoclopramide HCl (Reglan) 5 mg IVP ACHS [facility] Last Admin: 09/22/17 08:11 Dose: 5 mg Morphine Sulfate (Morphine) 1 mg IVP Q4H PRN PRN Reason: Pain, moderate (4-7) Last Admin: 09/22/17 08:51 Dose: 1 mg Ondansetron HCl (Zofran Inj) 4 mg IVP Q4H PRN PRN Reason: Nausea/Vomiting Pantoprazole Sodium (Protonix Inj) 40 mg IVP Q12 [facility] Last Admin: 09/22/17 09:13 Dose: 40 mg Physical Exam - Constitutional Appears: Non-toxic, No Acute Distress - Head Exam Head Exam: ATRAUMATIC, NORMOCEPHALIC - Eye Exam Eye Exam: EOMI, PERRL - ENT Exam ENT Exam: Mucous Membranes Moist, Normal Oropharynx - Neck Exam Neck exam: Positive for: Normal Inspection. Negative for: Tenderness - Respiratory Exam Respiratory Exam: Clear to Auscultation Bilateral. absent: Rhonchi, Wheezes - Cardiovascular Exam Cardiovascular Exam: RRR, +S1, +S2 - GI/Abdominal Exam GI & Abdominal Exam: Normal Bowel Sounds, Soft, Tenderness (epigastric). absent : Distended, Firm, Guarding - Extremities Exam Extremities exam: Negative for: calf tenderness, pedal edema - Neurological Exam Neurological exam: Alert, Oriented x3 - Psych Exam Psych exam: Normal Mood, Normal Affect - Skin Skin Exam: Dry, Warm Results - Vital Signs Recent Vital Signs: Last Vital Signs Temp 98.5 F 09/22/17 08:21 Pulse 50 L 09/22/17 08:21 Resp 20 09/22/17 08:21 BP 160/70 H 09/22/17 09:12 Pulse Ox 95 09/22/17 08:21 - Labs Result Diagrams: 09/22/17 07:40 Labs: Laboratory Results - last 24 hr 09/22/17 07:40 Sodium 138 Potassium 4.0 Chloride 103 Carbon Dioxide 26 Anion Gap 13 BUN 12 Creatinine 0.7 Est GFR ( Amer) > 60 Est GFR (Non-Af Amer) > 60 Random Glucose 304 H* D Calcium 9.3 Total Bilirubin 0.6 AST 16 ALT 30 Alkaline Phosphatase 104 Total Protein 6.6 Albumin 4.0 Globulin 2.7 Albumin/Globulin Ratio 1.5 Assessment & Plan - Assessment and Plan (Free Text) Assessment: 52 year old female with a PMH of colon CA s/p subtotal colectomy, pancreatic CA s/p whipple procedure, uncontrolled IDDM with gastroparesis who presents with abdominal pain and intractable nausea and vomiting Plan: Abd pain with intractable N/V Continue anti-emetics PRN Continue supportive care and IV hydration Needs tighter glycemic control Avoid opioid medications as these may exacerbate her symptoms Begin bowel regimen with miralax Plan for EGD later today Thank you for allowing us to participate in the care of this interesting patient. - Date & Time Date: 09/22/17 Time: 09:10
[2017-09-22] MEDS ORDERED: POLYETHYLENE GLYCOL 3350 17 GM/Dose PACKET PO SCH (10:00)
--- NOTE | 2017-09-22 11:29 | HP ---
HISTORY OF PRESENT ILLNESS: Marizol is just discharged yesterday after being in observation for 2 days for intractable nausea, vomiting, and abdominal pain. She was home for february be 4 hours after she ate in the hospital and was cleared by GI, she had to come back. She is a 52-year-old female who just got discharged from the hospital for acute abdominal pain, nausea, vomiting, and discharged and could not take it and came back to the emergency room. She has a past medical history of colon cancer with surgery, pancreatic cancer, status post Whipple, hypertension, diabetes, high cholesterol, chronic abdominal pain, and possible gastroparesis involved with this. She is here in the hospital again. PAST MEDICAL HISTORY: She has hypertension, COPD, asthma, bronchitis, diabetes, colon cancer history, she has dry skin on the elbows, back pains, gastroesophageal reflux, colon cancer surgery, Whipple surgery, substance abuse history, and she also had a . FAMILY HISTORY: Hypertension in the family. Diabetes in the family. SOCIAL HISTORY: She still smokes. Drinks alcohol. No substance abuse. ALLERGIES: SHE IS ALLERGIC CODEINE AND IODINE. MEDICATIONS: She takes Metaxall, oxycodone, Januvia, Vasotec, Pepcid, hydroxyzine, Lantus, Glucophage, potassium, and Zocor. REVIEW OF SYSTEMS: No acute vision or hearing changes. No sore throat. There is abdominal pain with nausea and vomiting. No bowel movement or gas. Skin is okay, not nervous. No sweating. PHYSICAL EXAMINATION: GENERAL: Uncomfortable right now. Alert and oriented x3. VITAL SIGNS: She has temperature of 98.4, pulse of 60, respiratory rate of 18, blood pressure of 115/77, and O2 saturation of 97% on room air. HEENT: Head is atraumatic and normocephalic. Extraocular muscles are intact. Pupils are equal, round, and reactive to light and accommodation. Throat is moist. NECK: Supple. Thyroid midline. No palpable appreciable lymphadenopathy. HEART: Regular rate. Normal S1 and S2. LUNGS: Decreased breath sounds, but clear to auscultation. No wheezes, rhonchi, or rales. ABDOMEN: Left upper quadrant discomfort. Diffuse all over the place and mildly distended. No guarding and no rebound. Decreased bowel sounds. No CVA tenderness. EXTREMITIES: No edema of the legs. NEUROLOGIC: GCS is 15. Cranial nerves II through XII grossly intact. Speech is normal. SKIN: Warm and dry. No rashes or ulcers appreciated. LABORATORY DATA: There were no labs done in the ER. There were no tests done in the ER. MEDICATIONS: She will be on IV fluids, n.p.o., except for medications, insulin coverage, morphine for pain, Protonix, Reglan, on Toradol, Zofran. IMPRESSION AND PLAN: Consult with GI. She is in observation. She is here for intractable nausea, vomiting, and abdominal pain. Mayur Mcclendon DO
[2017-09-22] MEDS: Morphine 2 mg/ml ISec IVP PRN ×3 (13:02→21:19)
[2017-09-22] MEDS ORDERED: Propofol 10 mg/ml Inj (20 ML) ONE ×2 (13:49→15:03)
[2017-09-22] MEDS ORDERED: Lidocaine 2% Inj (20ml) ONE (14:49)
[2017-09-22] MEDS ORDERED: Insulin Detemir 100 units/ml Vial (Levemir) SC SCH (22:00)
[2017-09-22] MEDS ORDERED: INSULIN GLARGINE RECOMBINA SC SCH (22:00)
[2017-09-23] MEDS ORDERED: Morphine 2 mg/ml ISec IVP STA (00:12)
--- NOTE | 2017-09-23 00:12 | CP.PCM.PN ---
Subjective - Date & Time of Evaluation Date of Evaluation: 09/23/17 Time of Evaluation: 00:11 - Subjective Subjective: S:Nurse calls and tells that morphine sulfate is due at 1.19 am and it is 12:11 and patient is requesting pain medication for abdominal pain. Patient has no other complaints. Medical record was reviewed O: Last Vital Signs 3 Temp 97.3 F L 09/22/17 16:00 Pulse 65 09/22/17 16:00 Resp 20 09/22/17 16:00 BP 116/90 09/22/17 16:00 Pulse Ox 97 09/22/17 16:00 LUNGS:Normal breathing pattern. A:Abdominal pain. P:Morphine sulfate 2 mg IV stat. Objective - Vital Signs/Intake and Output Vital Signs (last 24 hours): Temp Pulse Resp BP Pulse Ox 97.3 F L 65 20 116/90 97 09/22/17 16:00 09/22/17 16:00 09/22/17 16:00 09/22/17 16:00 09/22/17 16:00 Intake and Output: 09/22/17 09/23/17 18:59 06:59 Intake Total 0 420 Balance 0 420 - Medications Medications: Current Medications Sodium Chloride (Sodium Chloride 0.45%) 1,000 mls @ 80 mls/hr IV .[id number] [facility] Last Admin: 09/22/17 07:56 Dose: 80 mls/hr Sodium Chloride (Sodium Chloride 0.9%) 1,000 mls @ 100 mls/hr IV .Q10H [facility] Insulin Detemir (Levemir) 8 unit SC QAM [facility] Last Admin: 09/22/17 09:13 Dose: 8 unit Insulin Detemir (Levemir) 7 unit SC HS [facility] Insulin Human Regular (Humulin R Med) 0 units SC Q6 [facility] PRN Reason: Protocol Last Admin: 09/22/17 18:05 Dose: Not Given Lisinopril (Zestril) 5 mg PO DAILY [facility] Last Admin: 09/22/17 09:12 Dose: 5 mg Metoclopramide HCl (Reglan) 5 mg IVP ACHS [facility] Last Admin: 09/22/17 21:18 Dose: 5 mg Morphine Sulfate (Morphine) 2 mg IVP Q4H PRN PRN Reason: Pain, moderate (4-7) Last Admin: 09/22/17 21:19 Dose: 2 mg Ondansetron HCl (Zofran Inj) 4 mg IVP Q4H PRN PRN Reason: Nausea/Vomiting Pantoprazole Sodium (Protonix Inj) 40 mg IVP Q12 [facility] Last Admin: 09/22/17 21:18 Dose: 40 mg Polyethylene Glycol (Miralax) 17 gm PO DAILY [facility] Last Admin: 09/22/17 10:45 Dose: 17 gm - Labs Labs: 09/22/17 07:40
[2017-09-23] MEDS: Insulin Reg-MEDIUM-Coverage SC SCH ×5 (00:26→22:00)
[2017-09-23] MEDS: Morphine 2 mg/ml ISec IVP PRN ×5 (04:34→20:34)
--- NOTE | 2017-09-23 06:41 | CP.PCM.PN ---
<Tl Cohn - Last Filed: 09/23/17 19:04> Subjective - Date & Time of Evaluation Date of Evaluation: 09/23/17 Time of Evaluation: 06:55 - Subjective Subjective: Tl Cohn D.O. PGY-2, GI Progress Note 52 year old female with a PMH of colon CA s/p subtotal colectomy, pancreatic CA s/p whipple procedure, uncontrolled IDDM with gastroparesis and who was recently admitted for abdominal pain with N/V and presented back after discharge with the same symptoms with EGD performed yesterday. Patient was seen and examined at bedside, found resting comfortably in NAD. Patient states that she still continues to have abdominal pain and discomfort, and did have an episode of vomiting last night as well. No other acute overnight events. Objective - Vital Signs/Intake and Output Vital Signs (last 24 hours): Temp Pulse Resp BP Pulse Ox 97.3 F L 65 20 116/90 97 09/22/17 16:00 09/22/17 16:00 09/22/17 16:00 09/22/17 16:00 09/22/17 16:00 Intake and Output: 09/22/17 09/23/17 18:59 06:59 Intake Total 0 2220 Balance 0 2220 - Medications Medications: Current Medications Sodium Chloride (Sodium Chloride 0.45%) 1,000 mls @ 80 mls/hr IV .[id number] [facility] Last Admin: 09/22/17 07:56 Dose: 80 mls/hr Sodium Chloride (Sodium Chloride 0.9%) 1,000 mls @ 100 mls/hr IV .Q10H [facility] Last Admin: 09/22/17 20:00 Dose: 100 mls/hr Insulin Detemir (Levemir) 8 unit SC QAM [facility] Last Admin: 09/22/17 09:13 Dose: 8 unit Insulin Detemir (Levemir) 7 unit SC HS [facility] Last Admin: 09/23/17 00:24 Dose: 7 unit Insulin Human Regular (Humulin R Med) 0 units SC Q6 [facility] PRN Reason: Protocol Last Admin: 09/23/17 06:12 Dose: Not Given Lisinopril (Zestril) 5 mg PO DAILY [facility] Last Admin: 09/22/17 09:12 Dose: 5 mg Metoclopramide HCl (Reglan) 5 mg IVP ACHS [facility] Last Admin: 09/22/17 21:18 Dose: 5 mg Morphine Sulfate (Morphine) 2 mg IVP Q4H PRN PRN Reason: Pain, moderate (4-7) Last Admin: 09/23/17 04:34 Dose: 2 mg Ondansetron HCl (Zofran Inj) 4 mg IVP Q4H PRN PRN Reason: Nausea/Vomiting Last Admin: 09/23/17 04:34 Dose: 4 mg Pantoprazole Sodium (Protonix Inj) 40 mg IVP Q12 [facility] Last Admin: 09/22/17 21:18 Dose: 40 mg Polyethylene Glycol (Miralax) 17 gm PO DAILY [facility] Last Admin: 09/22/17 10:45 Dose: 17 gm - Labs Labs: 09/22/17 07:40 Physical Exam - Constitutional Appears: well developed, well nourished - Head Exam Head Exam: ATRAUMATIC, NORMOCEPHALIC - Eye Exam Eye Exam: EOMI, PERRL - ENT Exam ENT Exam: Mucous Membranes Moist, Normal Oropharynx - Neck Exam Neck exam: Positive for: Normal Inspection. Negative for: Tenderness - Respiratory Exam Respiratory Exam: Clear to Auscultation Bilateral. absent: Rhonchi, Wheezes - Cardiovascular Exam Cardiovascular Exam: RRR, +S1, +S2 - GI/Abdominal Exam GI & Abdominal Exam: Normal Bowel Sounds, Soft, Tenderness (epigastric). absent : Distended, Firm, Guarding - Extremities Exam Extremities exam: Negative for: calf tenderness, pedal edema - Neurological Exam Neurological exam: Alert, Oriented x3 - Psych Exam Psych exam: Normal Mood, Normal Affect - Skin Skin Exam: Dry, Warm Assessment and Plan - Assessment and Plan (Free Text) Assessment: 52 year old female with a PMH of colon CA s/p subtotal colectomy, pancreatic CA s/p whipple procedure, uncontrolled IDDM with gastroparesis who presents with abdominal pain and intractable nausea and vomiting, s/p EGD Plan: Bile gastritis S/p pyloric sparing whipple Moderate size hiatal hernia Uncontrolled DM with gastroparesis Above findings noted on EGD On clears now, can advance as tolerated Avoid opioid medications as these may exacerbate her symptoms Continue anti-emetics PRN Continue supportive care Needs tighter glycemic control, rod puller and coiler evaluation recommended Continue bowel regimen with miralax May continue reglan use Thank you for allowing us to participate in the care of this interesting patient. <Gerber Mejia - Last Filed: 09/24/17 18:09> Objective - Vital Signs/Intake and Output Vital Signs (last 24 hours): Temp Pulse Resp BP Pulse Ox 98.6 F 95 H 18 138/66 99 09/24/17 06:00 09/24/17 06:00 09/24/17 06:00 09/24/17 06:00 09/24/17 06:00 Intake and Output: 09/24/17 09/24/17 06:59 18:59 Intake Total 1560 Balance 1560 - Labs Labs: 09/24/17 07:59 09/24/17 07:59 Attending/Attestation - Attestation I have personally seen and examined this patient.: Yes I have fully participated in the care of the patient.: Yes I have reviewed all pertinent clinical information, including history, physical exam and plan: Yes Notes (Text): 09/23/17 18:07 52 year old female with a h/o colon CA s/p subtotal colectomy, pancreatic cancer s/p whipple, DM, gastroparesis, admitted with recurrent N/V. 1. Gastroparesis 2. Constipation Plan: -continue supportive measures with PPI, anti-emetics -small freq meals, advance diet as tolerated -continue bowel regimen with miralax -optimize glycemic control and minimize opiates
[2017-09-23] MEDS ORDERED: Insulin Detemir 100 units/ml Vial (Levemir) SC SCH (08:09)
[2017-09-23 08:36] LABS: HEMATOCRIT 37.8 % (36.0-48.0); MEAN CORPUSCULAR HEMOGLOBIN 26.9 pg (25.0-35.0); MEAN CORPUSCULAR HGB CONC 32.8 g/dl (31.0-37.0); MEAN PLATELET VOLUME 9.4 fl (7.0-11.0)
--- NOTE | 2017-09-23 08:40 | PN ---
DATE: SUBJECTIVE: I saw Marizol resting in bed. She told me she tried to have fluids last night and this morning and she threw it up. Still with abdominal pain. She is told she has a lot of stool in the intestines. She is a little backed up probably from gastroparesis. She is on IV fluids. They added MiraLax. She is also on insulin, which I increased because her blood sugars were high. Morphine for pain. Protonix, Reglan, Toradol for pain, Zofran. She is uncomfortable in bed, throwing up, still cannot keep liquids down. I am going to change it to an inpatient. This is the fourth day of dealing with this. This will be her first inpatient day though out of the 4 days. PHYSICAL EXAMINATION: VITAL SIGNS: She has a 97.6 temp, 69 pulse, 140/78 blood pressure, 20 respiratory rate and 100% O2 sat on room air. HEENT: Head is atraumatic, normocephalic. HEART: Regular rate. LUNGS: Decreased breath sounds, but clear. ABDOMEN: Decreased to no bowel sounds. Obese. Mild diffuse discomfort. No guarding. No rebound. EXTREMITIES: No edema. She looks miserable. LABORATORY DATA: She has a 231 blood sugar. Awaiting on CBC and a chemistry to come back for today. ASSESSMENT AND PLAN: As per GI, we increased the diet to clears, but she cannot keep it down. They did an endoscopy. I do not know the results yet. I changed it an inpatient, IV fluids, n.p.o. except clears if she could tolerate it, Zofran and Protonix and Reglan and pain medications. Here for nausea, vomiting, intractable abdominal pain and gastroparesis. She is a diabetic. Mayur Mcclendon DO
[2017-09-23 09:21] LABS: ALB/GLOB RATIO 1.4 (1.1-1.8); ALKALINE PHOSPHATASE 108 U/L (38-126); ALT/SGPT 26 U/L (7-56); AST/SGOT 19 U/L (14-36); BILIRUBIN,TOTAL 0.7 mg/dL (0.2-1.3); BLOOD UREA NITROGEN 9 mg/dL (7-21); CALCIUM 9.5 mg/dL (8.4-10.5); CARBON DIOXIDE 26 mmol/L (21-33); CHLORIDE 104 mmol/L (98-107); GFR AFRICAN-AMERICAN > 60; GLUCOSE,RANDOM 219 mg/dL (70-110); SODIUM 139 mmol/L (132-148); TOTAL PROTEIN 7.2 g/dL (5.8-8.3)
[2017-09-23] MEDS: Insulin Detemir 100 units/ml Vial (Levemir) SC SCH (10:47)
[2017-09-23] MEDS: POLYETHYLENE GLYCOL 3350 17 GM/Dose PACKET PO SCH ×2 (10:48→17:55)
[2017-09-23] MEDS: Sodium Chloride 0.45% 1,000 ML IV SCH (10:49)
[2017-09-24] MEDS: Morphine 2 mg/ml ISec IVP PRN ×2 (00:26→04:26)
[2017-09-24] MEDS ORDERED: Pantoprazole 40 mg EC Tab PO SCH (06:00)
[2017-09-24 08:03] LABS: HEMATOCRIT 34.1 % (36.0-48.0); MEAN CELL VOLUME 82.6 fl (80.0-105.0); MEAN CORPUSCULAR HEMOGLOBIN 26.6 pg (25.0-35.0); MEAN CORPUSCULAR HGB CONC 32.3 g/dl (31.0-37.0); MEAN PLATELET VOLUME 9.1 fl (7.0-11.0); WHITE BLOOD COUNT 3.8 10^3/ul (4.5-11.0)
[2017-09-24 08:12] LABS: ALB/GLOB RATIO 1.4 (1.1-1.8); ALKALINE PHOSPHATASE 89 U/L (38-126); ALT/SGPT 31 U/L (7-56); AST/SGOT 19 U/L (14-36); BILIRUBIN,TOTAL 0.6 mg/dL (0.2-1.3); BLOOD UREA NITROGEN 8 mg/dL (7-21); CALCIUM 9.2 mg/dL (8.4-10.5); CARBON DIOXIDE 26 mmol/L (21-33); CHLORIDE 106 mmol/L (98-107); GFR AFRICAN-AMERICAN > 60; GLUCOSE,RANDOM 208 mg/dL (70-110); POTASSIUM 4.1 mmol/L (3.6-5.0); SODIUM 140 mmol/L (132-148); TOTAL PROTEIN 6.7 g/dL (5.8-8.3)
--- NOTE | 2017-09-24 08:13 | CP.PCM.PN ---
<Annette Haile - Last Filed: 09/24/17 09:13> Subjective - Date & Time of Evaluation Date of Evaluation: 09/24/17 Time of Evaluation: 07:10 - Subjective Subjective: GI Fellow PGY4 Progress Note Pt seen and evaluated at beside, pt doing well with no further complaints of nausea or vomiting. Pt was able to tolerate regular diet last night and says she feels better and is ready to go home. Pt did have a BM last night. ROS: A 12pt ROS was negative except as above. Objective - Vital Signs/Intake and Output Vital Signs (last 24 hours): Temp Pulse Resp BP Pulse Ox 99.3 F 50 L 20 124/64 97 09/23/17 16:00 09/23/17 16:00 09/23/17 16:00 09/23/17 16:00 09/23/17 16:00 Intake and Output: 09/24/17 09/24/17 06:59 18:59 Intake Total 1560 Balance 1560 - Medications Medications: Current Medications Sodium Chloride (Sodium Chloride 0.45%) 1,000 mls @ 80 mls/hr IV .[id number] [facility] Last Admin: 09/23/17 10:49 Dose: 80 mls/hr Insulin Detemir (Levemir) 8 unit SC QAM [facility] Last Admin: 09/23/17 10:47 Dose: 8 unit Insulin Detemir (Levemir) 10 unit SC HS [facility] Last Admin: 09/23/17 21:59 Dose: 10 unit Insulin Human Regular (Humulin R Med) 0 units SC ACHS [facility] PRN Reason: Protocol Last Admin: 09/23/17 22:00 Dose: Not Given Lisinopril (Zestril) 5 mg PO DAILY [facility] Last Admin: 09/23/17 10:47 Dose: 5 mg Metoclopramide HCl (Reglan) 5 mg IVP ACHS [facility] Last Admin: 09/23/17 21:29 Dose: 5 mg Morphine Sulfate (Morphine) 2 mg IVP Q4H PRN PRN Reason: Pain, moderate (4-7) Last Admin: 09/24/17 04:26 Dose: 2 mg Ondansetron HCl (Zofran Inj) 4 mg IVP Q4H PRN PRN Reason: Nausea/Vomiting Last Admin: 09/23/17 20:33 Dose: 4 mg Pantoprazole Sodium (Protonix Ec Tab) 40 mg PO 0600 [facility] Last Admin: 09/24/17 05:44 Dose: 40 mg Polyethylene Glycol (Miralax) 17 gm PO BID [facility] Last Admin: 09/23/17 17:55 Dose: 17 gm - Labs Labs: 09/23/17 08:31 09/23/17 08:31 - Constitutional Appears: Non-toxic, No Acute Distress - Head Exam Head Exam: ATRAUMATIC, NORMAL INSPECTION, NORMOCEPHALIC - Eye Exam Eye Exam: EOMI, Normal appearance, PERRL Pupil Exam: PERRL - ENT Exam ENT Exam: Mucous Membranes Moist, Normal Exam - Neck Exam Neck Exam: Full ROM, Normal Inspection - Respiratory Exam Respiratory Exam: Clear to Ausculation Bilateral, NORMAL BREATHING PATTERN - Cardiovascular Exam Cardiovascular Exam: REGULAR RHYTHM - GI/Abdominal Exam GI & Abdominal Exam: Soft, Normal Bowel Sounds. absent: Guarding, Rigid, Tenderness, Organomegaly - Rectal Exam Rectal Exam: Deferred - Extremities Exam Extremities Exam: Full ROM, Normal Inspection - Back Exam Back Exam: NORMAL INSPECTION - Neurological Exam Neurological Exam: Alert, Awake, Oriented x3 - Psychiatric Exam Psychiatric exam: Normal Affect, Normal Mood - Skin Skin Exam: Dry, Intact, Normal Color, Warm Assessment and Plan - Assessment and Plan (Free Text) Assessment: This is a 52yF with presenting with intractable nausea and vomiting. 1. Nausea and Vomiting 2. Uncontrolled DM 3. Bile gastritis s/p EGD 09/22/17 4. Hx of pancreatic ca s/p Whipple 5. Constipation Plan: -Pt is doing well and tolerating diet -Continue PPI po daily, waiting on pathology report from EGD -Bile gastritis can be contributing to symptoms, will not start cholestyramine due to constipation -Bowel regimen for constipation with chronic opioid use, miralax bid -Pt needs tight glycemic control of DM with BG in the 200-300 range contributing to nausea and vomiting, discussed with pt to follow up with bench hand machine -Will call Dr. Ferguson bench hand machine to schedule appointment for patient at -From GI perspective pt is okay for discharge home today <Martinez Rincon - Last Filed: 09/24/17 12:12> Objective - Vital Signs/Intake and Output Vital Signs (last 24 hours): Temp Pulse Resp BP Pulse Ox 98.6 F 95 H 18 138/66 99 09/24/17 06:00 09/24/17 06:00 09/24/17 06:00 09/24/17 06:00 09/24/17 06:00 Intake and Output: 09/24/17 09/24/17 06:59 18:59 Intake Total 1560 Balance 1560 - Labs Labs: 09/24/17 07:59 09/24/17 07:59 Attending/Attestation - Attestation I have personally seen and examined this patient.: Yes I have fully participated in the care of the patient.: Yes I have reviewed all pertinent clinical information, including history, physical exam and plan: Yes Notes (Text): 09/24/17 12:09 I have seen and examined patient with GI fellow. No acute events overnight, she is seen ambulating in hallway, appears quite comfortable. She continues to endorse mild epigastric abdominal pain, though she has not had any recurrent vomiting over past 24 hours. She denies fever/chills, diarrhea, and was able to tolerate regular diet yesterday. DM - uncontrolled Nausea, vomiting - gastroparesis s/p EGD showing bile gastritis History of pancreatic cancer s/p whipple History of colon cancer s/p subtotal colectomy - Diet as tolerated - small, frequent meals throughout the day - Await biopsy results from EGD - Anti-emetic therapy PRN - Patient instructed to follow up with bench hand machine Dr. Ferguson for further management of diabetes - From GI standpoint, ok to discharge home with subsequent outpatient follow up
[2017-09-24] MEDS: Insulin Reg-MEDIUM-Coverage SC SCH (08:55)
[2017-09-24 09:35] VITALS: BP 138/66; PULSE 95; RESP 18; TEMP 98.6; O2SAT 99
--- NOTE | 2017-09-24 11:05 | DS ---
HISTORY OF PRESENT ILLNESS: She is doing much better, slept well. She is eating better and for the first time this morning no nausea or vomiting. Her belly is feeling better. It is not hurting her any more, and she is moving her bowels, so a big turn around in the last 8 to 10 hours. PHYSICAL EXAMINATION: VITAL SIGNS: She has a 99.3 temp, 50 pulse, 124/64 blood pressure, 20 respiratory rate, 97% O2 sat on room air. HEENT: Head atraumatic, normocephalic. HEART: Regular rate. LUNGS: Clear to auscultation. ABDOMEN: Soft. Positive bowel sounds. Nontender. EXTREMITIES No edema. She is asking to home too, normally she would not do that, now she is feeling better. MEDICATIONS: Insulin, Levemir, MiraLax, morphine, which we will stop. Protonix, Reglan, IV fluids, Zestril, and Zofran. LABORATORY DATA: She has a 3.8 white count, 11 hemoglobin, 34.1 hematocrit, platelets, 140 sodium, potassium 4.1, BUN 8, creatinine 0.8, GFR is greater than 60, sugar is 208, calcium is 9.2, total bilirubin is 0.68, AST is 19, ALT is 31, alk phos is 89, total protein is 6.7, albumin is 3.9. She is being seen by GI and they said that she can go when she stops having nausea or vomiting. She is eating better. We will discharge her home today to follow up with her doctor in 4 days, to go back to the same medications that she was taking at home. ASSESSMENT AND PLAN: Intractable nausea, vomiting and abdominal pain with diabetes, gastroparesis for about 4 to 5 days now. Mayur Mcclendon DO [email or web address]
== END 2017-09-24 10:33 | disposition home or self-care (01) | DRG 73 ==
LOC: ED 03:46 → ERH 04:30 → 3RSO 05:17 → OBSVTOIN 09-23 08:10
PROVIDERS: ADMIT Family Medicine; ATTEND Family Medicine
PROC: 0DB98ZX Excision of Duodenum, Via Natural or Artificial Opening Endoscopic, Diagnostic (ICD-10-PCS; 2017-09-22)
PROC: 0DB68ZX Excision of Stomach, Via Natural or Artificial Opening Endoscopic, Diagnostic (ICD-10-PCS; principal; 2017-09-22 12:45)
DX: E11.43 Type 2 diabetes mellitus with diabetic autonomic (poly)neuropathy (principal); K31.84 Gastroparesis; K29.60 Other gastritis without bleeding; Q39.4 Esophageal web; K44.9 Diaphragmatic hernia without obstruction or gangrene; K21.9 Gastro-esophageal reflux disease without esophagitis; E11.65 Type 2 diabetes mellitus with hyperglycemia; I10 Essential (primary) hypertension; E78.00 Pure hypercholesterolemia, unspecified; J44.9 Chronic obstructive pulmonary disease, unspecified; F17.200 Nicotine dependence, unspecified, uncomplicated; K59.00 Constipation, unspecified; Z85.07 Personal history of malignant neoplasm of pancreas; Z85.038 Personal history of other malignant neoplasm of large intestine; Z90.411 Acquired partial absence of pancreas; Z79.4 Long term (current) use of insulin

== ENCOUNTER 2017-10-21 08:55 | Emergency (ER) | payer BC, OTHER ==
[2017-10-21 08:56] VITALS: BMI 34.3
[2017-10-21 09:16] VITALS: TEMP 98.7
[2017-10-21] MEDS ORDERED: Sodium Chloride 0.9% 1,000 ML IV STA (09:22)
--- NOTE | 2017-10-21 09:26 | ED PDOC ---
Arrival/HPI - General Chief Complaint: Abdominal Pain Time Seen by Provider: 10/21/17 09:04 Historian: Patient - History of Present Illness Narrative History of Present Illness (Text): 10/21/17 09:25 Keith Fontana is a 52 year old AAF, whose past medical history includes colon cancer, pancreatic cancer s/p whipple procedure, hypertension, IDDM2, hyperlipidemia and chronic abdominal pain, who presents to the Emergency department complaining of generalized abdominal pain prior to arrival. Patient informs similar symptoms from previous episode. Patient denies consulting to the GI prior to arrival. Patient denies any chest pain, shortness of breath, fever, chills, nausea, vomiting, dysuria, changes in bowel movements or any other complaints. Time/Duration: Prior to Arrival Symptom Onset: Gradual Symptom Course: Unchanged Quality: Aching Activities at Onset: Light Context: Home Past Medical History - Provider Review Nursing Documentation Reviewed: Yes - Past History Past History: Non-Contributing - Infectious Disease Hx of Infectious Diseases: None - Tetanus Immunization Tetanus Immunization: Unknown - Cardiac Hx Cardiac Disorders: Yes Hx Angina: No Hx Cardiac Arrhythmia: No Hx Circulatory Problems: No Hx Congestive Heart Failure: No Hx Heart Murmur: No Hx Heart Transplant: No Hx Hypertension: Yes Hx Internal Defibrillator: No Hx Mitral Valve Prolapse: No Hx Pacemaker: No Hx Peripheral Edema: No Hx Peripheral Vascular Disease: No - Pulmonary Hx Respiratory Disorders: Yes Hx Asthma: Yes Hx Bronchitis: Yes Hx Chronic Obstructive Pulmonary Disease (COPD): No (denies) Hx Emphysema: No Hx Pneumonia: No Hx Respiratory Aspiration: No Hx Respiratory Tract Infection: No Hx Sleep Apnea: No Hx Tuberculosis: No - Neurological Hx Neurological Disorder: No Hx Alzheimer's Disease: No HX Cerebrovascular Accident: No Hx Dementia: No Hx Dizziness: No Hx Meningitis: No Hx Migraine: No Hx Parkinson's Disease: No Hx Seizures: No Hx Transient Ischemic Attacks (TIA): No - HEENT Hx HEENT Disorder: No (wears glasses) Hx Blind: No Hx Cataracts: No Hx Deafness: No Hx Difficulty Chewing: No Hx Epistaxis: No Hx Glaucoma: No Hx Macular Degeneration: No - Renal Hx Renal Disorder: No Hx Dialysis: No Hx Kidney Stones: No Hx Neurogenic Bladder: No Hx Pyelonephritis: No Hx Renal Cancer: No Hx Renal Failure: No - Endocrine/Metabolic Hx Endocrine Disorders: Yes Hx Adrenal Cancer: No Hx Diabetes Insipidus: No Hx Diabetes Mellitus Type 1: Yes Hx Diabetes Mellitus Type 2: No Hx Hyperthyroidism: No Hx Hypothyroidism: No Hx Systemic Lupus Erythematosus: No - Hematological/Oncological Hx Blood Disorders: Yes Hx AIDS: No Hx Anemia: No Hx Cancer: Yes (colon) Hx Chemotherapy: No Hx Cirrhosis: No Hx Hemophilia: No Hx Hepatitis A: No Hx Hepatitis B: No Hx Hepatitis C: No Hx Metastasis: No Hx Shingles: No Hx Sickle Cell Disease: No Hx Unexplained Bleeding: No Other/Comment: pancreatic and colon ca - Integumentary Hx Dermatological Disorder: No Hx Basal Cell Carcinoma: No Hx Eczema: No Hx Melanoma: No Hx Psoriasis: No Hx Squamous Cell Carcinoma: No Other/Comment: large area of dry hard skin to right elbow - Musculoskeletal/Rheumatological Hx Musculoskeletal Disorders: Yes Hx Arthritis: Yes (b/l knees) Hx Degenerative Joint Disease: Yes Hx Falls: No Hx Fractures: Yes (right pinky) Hx Unsteady Gait: Yes (cane) - Gastrointestinal Hx Gastrointestinal Disorders: Yes Hx Colostomy: No Hx Crohn's Disease: No Hx Diverticulitis: No Hx Gall Bladder Disease: No Hx Gastroesophageal Reflux: Yes Hx Ileostomy: No Hx Liver Failure: No Hx Pancreatitis: No HX Swallowing Problems: No Other/Comment: colon ca with surgery - Genitourinary/Gynecological Hx Genitourinary Disorders: Yes Hx Hematuria: No Hx Incontinence: No Hx Sexually Transmitted Diseases: No Hx Urinary Tract Infection: Yes - Psychiatric Hx Psychophysiologic Disorder: No Hx Anxiety: No Hx Bipolar Disorder: No Hx Depression: No Hx Emotional Abuse: No Hx Hallucinations: No Hx Panic Disorder: No Hx Post Traumatic Stress Disorder: No Hx Psychosis: No Hx Physical Abuse: No Hx Schizophrenia: No Hx Sexual Abuse: No Hx Substance Use: Yes - Surgical History Hx Cardiac Catheterization: No Hx Coronary Stent: No Other/Comment: CA Colon - whipple,CESEREAN X 1 - Anesthesia Hx Anesthesia: Yes Hx Anesthesia Reactions: No Hx Malignant Hyperthermia: No - Suicidal Assessment Feels Threatened In Home Enviroment: No Family/Social History - Physician Review Nursing Documentation Reviewed: Yes Family/Social History: Unknown Family HX Smoking Status: Light Smoker < 10 Cigarettes Daily Hx Alcohol Use: Yes Hx Substance Use: Yes Hx Substance Use Treatment: Yes Allergies/Home Meds Allergies/Adverse Reactions: Allergies codeine Allergy (Verified 08/21/17 05:10) VOMITING iodine Allergy (Verified 08/21/17 05:10) RASH Home Medications: Home Meds Medication Instructions Recorded Confirmed Metaxalone [Metaxall] 800 mg PO QID 07/22/17 10/21/17 Oxycodone HCl [Oxycodone HCl ER] 80 mg PO Q12 07/22/17 10/21/17 SITagliptin [Januvia] 50 mg PO DAILY 07/22/17 10/21/17 Enalapril Maleate [Vasotec] 5 mg PO DAILY 08/17/17 10/21/17 Famotidine [Pepcid] 40 mg PO DAILY 08/17/17 10/21/17 Hydroxyzine Pamoate 100 mg PO DAILY 08/17/17 10/21/17 Insulin Glargine, Recombina 15 units SC HS 08/17/17 10/21/17 [Lantus] MetFORMIN [glucoPHAGE] 1,000 mg PO BID 08/17/17 10/21/17 Potassium Chloride [Klor-Con] 20 meq PO DAILY 08/17/17 10/21/17 Simvastatin [Zocor] 20 mg PO DAILY 08/17/17 10/21/17 Review of Systems - Physician Review All systems were reviewed & negative as marked: Yes - Review of Systems Constitutional: Normal. absent: Fevers, Night Sweats Eyes: Normal ENT: Normal Respiratory: Normal. absent: SOB Cardiovascular: Normal. absent: Chest Pain Gastrointestinal: Abdominal Pain (generalized abdominal pain ). absent: Stool Changes, Nausea, Vomiting Genitourinary Female: Normal. absent: Dysuria Musculoskeletal: Normal Skin: Normal Neurological: Normal Endocrine: Normal Hemo/Lymphatic: Normal Psychiatric: Normal Physical Exam Vital Signs Reviewed: Yes Vital Signs Temp Pulse Resp BP Pulse Ox 10/21/17 11:09 69 16 124/71 98 10/21/17 09:10 98.7 F 79 14 141/77 99 Temperature: Afebrile Blood Pressure: Normal Pulse: Regular Respiratory Rate: Normal Appearance: Positive for: Well-Appearing, Non-Toxic, Comfortable Pain Distress: None Mental Status: Positive for: Alert and Oriented X 3 - Systems Exam Head: Present: Atraumatic, Normocephalic Pupils: Present: PERRL Extroacular Muscles: Present: EOMI Conjunctiva: Present: Normal Mouth: Present: Moist Mucous Membranes Neck: Present: Normal Range of Motion Respiratory/Chest: Present: Clear to Auscultation, Good Air Exchange. No: Respiratory Distress, Accessory Muscle Use Cardiovascular: Present: Regular Rate and Rhythm, Normal S1, S2. No: Murmurs Abdomen: Present: Tenderness (Mild nonlocalized tenderness ), Normal Bowel Sounds. No: Distention, Peritoneal Signs Back: Present: Normal Inspection Upper Extremity: Present: Normal Inspection. No: Cyanosis, Edema Lower Extremity: Present: Normal Inspection. No: Edema Neurological: Present: GCS=15, CN II-XII Intact, Speech Normal Skin: Present: Warm, Dry, Normal Color. No: Rashes Psychiatric: Present: Alert, Oriented x 3, Normal Insight, Normal Concentration Medical Decision Making ED Course and Treatment: 10/21/17 09:27 Impression: 52 year old female presents to the Emergency department for generalized abdominal pain. Plan: --CT of Abdomen/Pelvis -- Labs -- Protonix -- IV Fluids -- Urinalysis -- Reassess and disposition Prior Visits: Notes and results from previous visits were reviewed. On 09/22/17 patient was seen in the Emergency department for nausea and vomiting. Patient was admitted to the hospital for further observation. 10/21/17 14:49 ct neg. labs unremarkable. seen by dr liss buckner, discussed with gi fellow. all agree with outtpt fu - Lab Interpretations Lab Results: 10/21/17 09:50 10/21/17 09:50 Lab Results 10/21/17 11:51: POC Glucose (mg/dL) 368 H 10/21/17 09:50: Sodium 135, Potassium 4.5, Chloride 98, Carbon Dioxide 26, Anion Gap 16, BUN 14, Creatinine 0.7, Est GFR ( Amer) > 60, Est GFR (Non- Af Amer) > 60, Random Glucose 410 H* D, Calcium 9.8, Total Bilirubin 0.7, AST 28 , ALT 25, Alkaline Phosphatase 123, Total Protein 7.7, Albumin 4.0, Globulin 3.7 , Albumin/Globulin Ratio 1.1, Lipase 38 10/21/17 09:50: PT 11.6, INR 1.05, APTT 21.0 L 10/21/17 09:50: WBC 6.2 D, RBC 4.93, Hgb 13.2 D, Hct 39.4, MCV 79.9 L, MCH 26.8, MCHC 33.5, RDW 14.0, Plt Count 263, MPV 9.3, Gran % 80.0 H, Lymph % (Auto ) 16.7 L, Williamson % (Auto) 2.9, Eos % (Auto) 0.2 L, Baso % (Auto) 0.2, Gran # 4.94 , Lymph # 1.0 L, Williamson # 0.2, Eos # 0.0, Baso # 0.01 10/21/17 09:40: Urine Color Yellow, Urine Appearance Clear, Urine pH 5.5, Ur Specific [place] 1.020, Urine Protein Trace H, Urine Glucose (UA) >=1000, Urine Ketones >=80, Urine Blood Negative, Urine Nitrate Negative, Urine Bilirubin Negative, Urine Urobilinogen 0.2, Ur Leukocyte Esterase Negative, Urine RBC 0 - 2, Urine WBC 1 - 3, Ur Epithelial Cells 6 - 8, Amorphous Sediment Few, Urine Bacteria Many, Urine Other Uyeast - RAD Interpretation Radiology Orders: 10/21/17 10:25 ABD & PELVIS W/O PO OR IV CONT [CT] Stat - Medication Orders Current Medication Orders: Discontinued Medications Al Hydrox/Mg Hydrox/Simethicone (Maalox Plus 30 Ml) 30 ml PO STAT STA Stop: 10/21/17 11:13 Last Admin: 10/21/17 11:24 Dose: 30 ml Sodium Chloride (Sodium Chloride 0.9%) 1,000 mls @ 1,000 mls/hr IV .Q1H STA Stop: 10/21/17 10:21 Last Admin: 10/21/17 09:58 Dose: 1,000 mls/hr eMAR Start Stop Document 10/21/17 09:58 CNR (Rec: 10/21/17 09:58 CNR [id number]) Intravenous Solution Start Date 10/21/17 Start Time 09:58 Insulin Human Regular (Humulin R) 4 units IV STAT STA Stop: 10/21/17 12:24 Last Admin: 10/21/17 12:52 Dose: 4 units eMAR Start Stop Document 10/21/17 12:52 CNR (Rec: 10/21/17 12:52 CNR [id number]) Intravenous Solution Start Date 10/21/17 Start Time 12:52 Ketorolac Tromethamine (Toradol) 30 mg IVP STAT STA Stop: 10/21/17 11:43 Last Admin: 10/21/17 11:52 Dose: 30 mg MAR Pain Assessment Document 10/21/17 11:52 CNR (Rec: 10/21/17 11:53 CNR [id number]) Pain Reassessment Is this a pain reassessment? Yes Location Pain Location Body Site Abdomen Description Description Constant IVP Administration Document 10/21/17 11:52 CNR (Rec: 10/21/17 11:53 CNR [id number]) Charges for Administration # of IVP Administrations 1 Pantoprazole Sodium (Protonix Inj) 40 mg IVP STAT STA Stop: 10/21/17 09:23 Last Admin: 10/21/17 09:58 Dose: 40 mg IVP Administration Document 10/21/17 09:58 CNR (Rec: 10/21/17 09:58 CNR [id number]) Charges for Administration # of IVP Administrations 1 - Scribe Statement The provider has reviewed the documentation as recorded by the Scribe Freda Meza. All medical record entries made by the Scribe were at my direction and personally dictated by me. I have reviewed the chart and agree that the record accurately reflects my personal performance of the history, physical exam, medical decision making, and the department course for this patient. I have also personally directed, reviewed, and agree with the discharge instructions and disposition. Disposition/Present on Arrival - Present on Arrival Any Indicators Present on Arrival: No History of DVT/PE: No History of Uncontrolled Diabetes: No Urinary Catheter: No History of Decub. Ulcer: No History Surgical Site Infection Following: Orthopedic Procedures - Disposition Have Diagnosis and Disposition been Completed?: Yes Diagnosis: Abdominal pain Disposition: HOME/ ROUTINE Disposition Time: 14:49 Condition: STABLE Discharge Instructions (ExitCare): Acute Abdominal Pain (DC) Additional Instructions: please follow up with your doctor. return to er with worsening symptoms or concerns. Referrals: Ronnell Sue MD [Primary Care Provider] - Follow up with primary Martinez Rincon MD [Staff Provider] - Follow up with primary Forms: [employer] (Sami)
[2017-10-21 10:09] LABS: PH,URINE 5.5 (4.7-8.0); URINE BILIRUBIN NEGATIVE (NEGATIVE); URINE BLOOD NEGATIVE (NEGATIVE); URINE GLUCOSE (UA) >=1000 mg/dL (NEGATIVE); URINE LEUKOCYTE ESTERASE NEGATIVE Leu/uL (NEGATIVE); URINE NITRATE NEGATIVE (NEGATIVE); URINE PROTEIN TRACE mg/dL (<30 mg/dL); URINE UROBILINOGEN 0.2 E.U./dL (<1 E.U./dL)
[2017-10-21 10:10] LABS: URINE APPEARANCE CLEAR (CLEAR); URINE COLOR YELLOW (YELLOW)
[2017-10-21 10:11] LABS: BASO # 0.01 K/mm3 (0.0-2.0); BASO % 0.2 % (0.0-3.0); EOS % 0.2 % (1.5-5.0); GRAN # 4.94 (1.4-6.5); HEMOGLOBIN 13.2 g/dL (12.0-16.0); LYMPH % 16.7 % (22.0-35.0); MEAN CELL VOLUME 79.9 fl (80.0-105.0); MEAN CORPUSCULAR HEMOGLOBIN 26.8 pg (25.0-35.0); MEAN CORPUSCULAR HGB CONC 33.5 g/dl (31.0-37.0); MEAN PLATELET VOLUME 9.3 fl (7.0-11.0); MONO # 0.2 (0.1-0.6); MONO % 2.9 % (1.0-6.0); RBC 4.93 10^6/uL (3.5-6.1); WHITE BLOOD COUNT 6.2 10^3/ul (4.5-11.0)
[2017-10-21 10:25] LABS: URINE AMORPHOUS SEDIMENT FEW; URINE BACTERIA MANY (NEG); URINE RBC 0 - 2 /hpf (0-2)
[2017-10-21 10:31] LABS: INR 1.05 (0.93-1.08); PROTHROMBIN TIME 11.6 SECONDS (9.4-12.5)
[2017-10-21 11:06] LABS: ALB/GLOB RATIO 1.1 (1.1-1.8); ALT/SGPT 25 U/L (7-56); AST/SGOT 28 U/L (14-36); BLOOD UREA NITROGEN 14 mg/dL (7-21); CALCIUM 9.8 mg/dL (8.4-10.5); GFR AFRICAN-AMERICAN > 60; GFR NON-AFRICAN AMERICAN > 60; LIPASE 38 U/L (23-300)
[2017-10-21 11:10] VITALS: BP 124/71; PULSE 69; RESP 16; O2SAT 98
[2017-10-21] MEDS ORDERED: Alum-Mag Hydrox-Simethicone Susp (30 mL) PO STA (11:12)
[2017-10-21] MEDS ORDERED: Insulin Regular 1 UNITS/0.01 ML ML IV STA (12:23)
--- NOTE | 2017-10-21 12:45 | CT ---
PROCEDURE: CT Abdomen and Pelvis without intravenous contrast HISTORY: abd pain COMPARISON: None. TECHNIQUE: Technique. Contrast Dose: Radiation dose: Total exam DLP = mGy-cm. This CT exam was performed using one or more of the following dose reduction techniques: Automated exposure control, adjustment of the mA and/or kV according to patient size, and/or use of iterative reconstruction technique. FINDINGS: LOWER THORAX: Linear atelectasis or fibrosis in the right middle lobe base anteriorly. Pleural pericardial effusion. LIVER: Lack of contrast agents limits evaluation of solid abdominal viscera. Prior cholecystectomy changes are appreciate the gallbladder fossa. Pneumobilia is appreciated nondependent liver, particularly at the left lobe. The hepatic parenchyma appears relatively homogeneous otherwise. No focal lesion is appreciable. Prominence of the common bile duct is not completely excluded in this unenhanced examination. PANCREAS: Postop appearance of the pancreas again noted in states with status post prior Whipple procedure in the past reportedly. SPLEEN: Unremarkable. ADRENALS: A benign left adrenal adenoma measures -7 Hounsfield units and is stable in size at 2.1 x 1.7 cm. The right adrenal again exhibits a 2.9 cm lucent nodule measuring 25 Hounsfield units remaining indeterminate in origin. Follow-up chemical shift MRI is recommended or CT without and with contrast for proper characterization less already proven benign. KIDNEYS AND URETERS: Unremarkable. No hydronephrosis. No solid mass. VASCULATURE: Unremarkable. No aortic aneurysm. BOWEL: Moderate rectal fecal impaction identified with the rectum distended up to up to 7.5 cm transverse dimension. No bowel obstruction. No gross mural thickening. Questionable prior right hemicolectomy. APPENDIX: Appendix not identified. Reportedly, the patient is status post prior appendectomy. Clinically correlate. PERITONEUM: Unremarkable. No free fluid. No free air. LYMPH NODES: Unremarkable. No enlarged lymph nodes. BLADDER: Unremarkable. REPRODUCTIVE: Unremarkable. BONES: No acute fracture. OTHER FINDINGS: None. IMPRESSION: No definitive acute abdominal or pelvic findings as discussed above although mild to moderate rectal fecal impaction is suggested. Prior cholecystectomy and partial pancreatectomy seen status post reported Whipple procedure in the past. Pneumobilia again seen in the nondependent intrahepatic biliary tree. Distention of the common bile duct is not excluded but is not definitively shown either. Benign left adrenal adenoma. Right adrenal nodule, indeterminate tissue type. Both appears stable in the interval. Follow-up chemical shift MRI advised evaluate the right adrenal gland if not artery performed or otherwise proven as benign. Questionable prior right hemicolectomy.
== END 2017-10-21 12:58 | disposition home or self-care (01) ==
LOC: ED 08:55
DX: R10.9 Unspecified abdominal pain (principal); I10 Essential (primary) hypertension; F17.210 Nicotine dependence, cigarettes, uncomplicated; E11.9 Type 2 diabetes mellitus without complications; Z85.038 Personal history of other malignant neoplasm of large intestine; Z85.07 Personal history of malignant neoplasm of pancreas; Z90.411 Acquired partial absence of pancreas; Z79.4 Long term (current) use of insulin
CPT/HCPCS: 74176; 80053; 81001; 82948; 83690; 85025; 85610; 85730; 96374; 96375; 99284; C9113; J1885; J7040

== ENCOUNTER 2017-10-22 04:44 | Emergency (ER) | payer BC, OTHER ==
[2017-10-22 04:44] VITALS: BMI 34.3
[2017-10-22 05:02] VITALS: RESP 18; O2SAT 100
[2017-10-22] MEDS ORDERED: Sodium Chloride 0.9% 500 ML IV STA (05:05)
--- NOTE | 2017-10-22 05:14 | ED PDOC ---
Arrival/HPI - General Chief Complaint: Abdominal Pain Time Seen by Provider: 10/22/17 04:58 Historian: Patient - History of Present Illness Narrative History of Present Illness (Text): 10/22/17 05:12 A 52 year old female, whose past medical history includes hypertension, IDDM2, hyperlipidemia, chronic abdominal pain, colon cancer and pancreatic cancer s/p whipple procedure, was brought in by EMS to the emergency department complaining of abdominal pain, nausea and vomiting. Patient reports she was seen in the emergency department yesterday for similar symptoms, with no relief. She had a CT abd/pelvis done, which she states was negative. Notes abdominal pain radiates to her back. Patient denies any fever or any other complaints at this time. Symptom Onset: Sudden Symptom Course: Unchanged Activities at Onset: Rest Context: Home Past Medical History - Provider Review Nursing Documentation Reviewed: Yes - Past History Past History: Non-Contributing - Infectious Disease Hx of Infectious Diseases: None - Tetanus Immunization Tetanus Immunization: Unknown - Cardiac Hx Cardiac Disorders: Yes Hx Angina: No Hx Cardiac Arrhythmia: No Hx Circulatory Problems: No Hx Congestive Heart Failure: No Hx Heart Murmur: No Hx Heart Transplant: No Hx Hypertension: Yes Hx Internal Defibrillator: No Hx Mitral Valve Prolapse: No Hx Pacemaker: No Hx Peripheral Edema: No Hx Peripheral Vascular Disease: No - Pulmonary Hx Respiratory Disorders: Yes Hx Asthma: Yes Hx Bronchitis: Yes Hx Chronic Obstructive Pulmonary Disease (COPD): No (denies) Hx Emphysema: No Hx Pneumonia: No Hx Respiratory Aspiration: No Hx Respiratory Tract Infection: No Hx Sleep Apnea: No Hx Tuberculosis: No - Neurological Hx Neurological Disorder: No Hx Alzheimer's Disease: No HX Cerebrovascular Accident: No Hx Dementia: No Hx Dizziness: No Hx Meningitis: No Hx Migraine: No Hx Parkinson's Disease: No Hx Seizures: No Hx Transient Ischemic Attacks (TIA): No - HEENT Hx HEENT Disorder: No (wears glasses) Hx Blind: No Hx Cataracts: No Hx Deafness: No Hx Difficulty Chewing: No Hx Epistaxis: No Hx Glaucoma: No Hx Macular Degeneration: No - Renal Hx Renal Disorder: No Hx Dialysis: No Hx Kidney Stones: No Hx Neurogenic Bladder: No Hx Pyelonephritis: No Hx Renal Cancer: No Hx Renal Failure: No - Endocrine/Metabolic Hx Endocrine Disorders: Yes Hx Adrenal Cancer: No Hx Diabetes Insipidus: No Hx Diabetes Mellitus Type 1: Yes Hx Diabetes Mellitus Type 2: No Hx Hyperthyroidism: No Hx Hypothyroidism: No Hx Systemic Lupus Erythematosus: No - Hematological/Oncological Hx Blood Disorders: Yes Hx AIDS: No Hx Anemia: No Hx Cancer: Yes (colon) Hx Chemotherapy: No Hx Cirrhosis: No Hx Hemophilia: No Hx Hepatitis A: No Hx Hepatitis B: No Hx Hepatitis C: No Hx Metastasis: No Hx Shingles: No Hx Sickle Cell Disease: No Hx Unexplained Bleeding: No Other/Comment: pancreatic and colon ca - Integumentary Hx Dermatological Disorder: No Hx Basal Cell Carcinoma: No Hx Eczema: No Hx Melanoma: No Hx Psoriasis: No Hx Squamous Cell Carcinoma: No Other/Comment: large area of dry hard skin to right elbow - Musculoskeletal/Rheumatological Hx Musculoskeletal Disorders: Yes Hx Arthritis: Yes (b/l knees) Hx Degenerative Joint Disease: Yes Hx Falls: No Hx Fractures: Yes (right pinky) Hx Unsteady Gait: Yes (cane) - Gastrointestinal Hx Gastrointestinal Disorders: Yes Hx Colostomy: No Hx Crohn's Disease: No Hx Diverticulitis: No Hx Gall Bladder Disease: No Hx Gastroesophageal Reflux: Yes Hx Ileostomy: No Hx Liver Failure: No Hx Pancreatitis: No HX Swallowing Problems: No Other/Comment: colon ca with surgery - Genitourinary/Gynecological Hx Genitourinary Disorders: Yes Hx Hematuria: No Hx Incontinence: No Hx Sexually Transmitted Diseases: No Hx Urinary Tract Infection: Yes - Psychiatric Hx Psychophysiologic Disorder: No Hx Anxiety: No Hx Bipolar Disorder: No Hx Depression: No Hx Emotional Abuse: No Hx Hallucinations: No Hx Panic Disorder: No Hx Post Traumatic Stress Disorder: No Hx Psychosis: No Hx Physical Abuse: No Hx Schizophrenia: No Hx Sexual Abuse: No Hx Substance Use: Yes - Surgical History Hx Cardiac Catheterization: No Hx Coronary Stent: No Other/Comment: CA Colon - whipple,CESEREAN X 1 - Anesthesia Hx Anesthesia: Yes Hx Anesthesia Reactions: No Hx Malignant Hyperthermia: No - Suicidal Assessment Feels Threatened In Home Enviroment: No Family/Social History - Physician Review Nursing Documentation Reviewed: Yes Family/Social History: No Known Family HX Smoking Status: Current Some Days Smoker Hx Alcohol Use: Yes Hx Substance Use: Yes Hx Substance Use Treatment: Yes Allergies/Home Meds Allergies/Adverse Reactions: Allergies acetaminophen [From Tylenol-Codeine] Allergy (Verified 10/22/17 04:58) RASH codeine Allergy (Verified 08/21/17 05:10) VOMITING iodine Allergy (Verified 08/21/17 05:10) RASH Home Medications: Home Meds Medication Instructions Recorded Confirmed Unobtainable 10/22/17 10/22/17 Review of Systems - Physician Review All systems were reviewed & negative as marked: Yes - Review of Systems Constitutional: absent: Fevers Gastrointestinal: Abdominal Pain, Nausea, Vomiting Musculoskeletal: Back Pain Physical Exam Vital Signs Reviewed: Yes Vital Signs Temp Pulse Resp BP Pulse Ox 10/22/17 04:44 98.8 F 70 18 145/96 H 100 Temperature: Afebrile Blood Pressure: Hypertensive Pulse: Regular Respiratory Rate: Normal Appearance: Positive for: Well-Appearing, Non-Toxic, Comfortable Pain Distress: None Mental Status: Positive for: Alert and Oriented X 3 Finger Stick Blood Glucose: 385 - Systems Exam Head: Present: Atraumatic, Normocephalic Pupils: Present: PERRL Extroacular Muscles: Present: EOMI Conjunctiva: Present: Normal Mouth: Present: Moist Mucous Membranes Neck: Present: Normal Range of Motion Respiratory/Chest: Present: Clear to Auscultation, Good Air Exchange. No: Respiratory Distress, Accessory Muscle Use Cardiovascular: Present: Regular Rate and Rhythm, Normal S1, S2. No: Murmurs Abdomen: Present: Tenderness, Normal Bowel Sounds. No: Distention, Peritoneal Signs Back: Present: Normal Inspection Upper Extremity: Present: Normal Inspection. No: Cyanosis, Edema Lower Extremity: Present: Normal Inspection. No: Edema Neurological: Present: GCS=15, CN II-XII Intact, Speech Normal Skin: Present: Warm, Dry, Normal Color. No: Rashes Psychiatric: Present: Alert, Oriented x 3, Normal Insight, Normal Concentration Medical Decision Making ED Course and Treatment: 10/22/17 05:11 Impression: A 52 year old female with abdominal pain, nausea and vomiting Plan: -- Pepcid, IV fluids, Phenergan Inj -- Reassess and disposition Prior Visits: Notes and results from previous visits were reviewed. Patient was last seen in the emergency department on 10/21/17 for evaluation of generalized abdominal pain. CT abd/pelvis 10/21/17 IMPRESSION: No definitive acute abdominal or pelvic findings as discussed above although mild to moderate rectal fecal impaction is suggested. Prior cholecystectomy and partial pancreatectomy seen status post reported Whipple procedure in the past. Pneumobilia again seen in the nondependent intrahepatic biliary tree. Distention of the common bile duct is not excluded but is not definitively shown either. Benign left adrenal adenoma. Right adrenal nodule, indeterminate tissue type. Both appears stable in the interval. Follow-up chemical shift MRI advised evaluate the right adrenal gland if not artery performed or otherwise proven as benign. Questionable prior right hemicolectomy. Progress Notes: - Medication Orders Current Medication Orders: Discontinued Medications Famotidine (Pepcid) 20 mg IVP STAT STA Stop: 10/22/17 05:04 Last Admin: 10/22/17 05:49 Dose: 20 mg IVP Administration Document 10/22/17 05:49 AD (Rec: 10/22/17 05:49 AD [id number]) Charges for Administration # of IVP Administrations 1 Sodium Chloride (Sodium Chloride 0.9%) 500 mls @ 999 mls/hr IV .Q31M STA Stop: 10/22/17 05:35 Last Admin: 10/22/17 05:49 Dose: 999 mls/hr eMAR Start Stop Document 10/22/17 05:49 AD (Rec: 10/22/17 05:49 AD [id number]) Intravenous Solution Start Date 10/22/17 Start Time 05:49 Ketorolac Tromethamine (Toradol) 30 mg IVP STAT STA Stop: 10/22/17 06:24 Promethazine HCl (Phenergan Inj) 25 mg IM STAT STA Stop: 10/22/17 05:05 Last Admin: 10/22/17 05:37 Dose: 25 mg IM Administration Charges Document 10/22/17 05:37 AD (Rec: 10/22/17 05:37 AD [id number]) Injection Site MAR Injection Site Right Deltoid Charges for Administration # of IM Administrations 1 Promethazine HCl (Phenergan Inj) 25 mg IM STAT STA Stop: 10/22/17 06:24 - Scribe Statement The provider has reviewed the documentation as recorded by the Nel Rojas Provider Scribe Attestation: All medical record entries made by the Scribe were at my direction and personally dictated by me. I have reviewed the chart and agree that the record accurately reflects my personal performance of the history, physical exam, medical decision making, and the department course for this patient. I have also personally directed, reviewed, and agree with the discharge instructions and disposition. Disposition/Present on Arrival - Present on Arrival Any Indicators Present on Arrival: No History of DVT/PE: No History of Uncontrolled Diabetes: Yes Urinary Catheter: No History of Decub. Ulcer: No History Surgical Site Infection Following: None - Disposition Have Diagnosis and Disposition been Completed?: Yes Diagnosis: Abdominal pain, Gastroparesis Disposition: HOME/ ROUTINE Disposition Time: 07:00 Condition: STABLE Additional Instructions: Continue current medications. See your doctor for further evaluation and advice. Forms: [employer] (Romansh)
[2017-10-22 07:27] VITALS: BP 140/85; PULSE 61; TEMP 98
== END 2017-10-22 07:30 | disposition home or self-care (01) ==
LOC: ED 04:44
DX: E11.43 Type 2 diabetes mellitus with diabetic autonomic (poly)neuropathy (principal); K31.84 Gastroparesis; R10.9 Unspecified abdominal pain; Z79.4 Long term (current) use of insulin
CPT/HCPCS: 82948; 96372; 96374; 96375; 99284; J1885; J2550; J7040

== ENCOUNTER 2017-11-15 05:37 | Emergency (ER) | payer BC, OTHER ==
[2017-11-15 05:38] VITALS: BMI 34.3
[2017-11-15 05:49] VITALS: RESP 18; TEMP 98.6
--- NOTE | 2017-11-15 05:58 | ED PDOC ---
Arrival/HPI - General Chief Complaint: Abdominal Pain Time Seen by Provider: 11/15/17 05:41 Historian: Patient - History of Present Illness Narrative History of Present Illness (Text): 11/15/17 05:58 Marizol Parker is a 52 year old female, whose past medical history includes diabetes, hypertension, hyperlipidemia, COPD, GERD, gastroparesis, chronic back pain, colon cancer and pancreatic cancer s/p Whipple procedure, who presents to the ED complaining of abdominal pain. Patient states she has been experiencing lower abdominal pain radiating down her left leg for the past 4 days and notes pain is worse at her left knee. Patient also reports associated nausea and vomiting for 2 days. Patient notes she was recently ill with influenza 2 weeks prior. Patient denies any fever, chills, chest pain, shortness of breath, urinary symptoms, back pain, neck pain, headache, dizziness, or any other complaints. PMD: Dr. Raul Mcclendon Symptom Onset: Gradual Symptom Course: Unchanged Activities at Onset: Light Context: Home Past Medical History - Provider Review Nursing Documentation Reviewed: Yes - Past History Past History: Non-Contributing - Infectious Disease Hx of Infectious Diseases: None - Tetanus Immunization Tetanus Immunization: Unknown - Reproductive Menopause: Yes - Cardiac Hx Cardiac Disorders: Yes Hx Angina: No Hx Cardiac Arrhythmia: No Hx Circulatory Problems: No Hx Congestive Heart Failure: No Hx Heart Murmur: No Hx Heart Transplant: No Hx Hypertension: Yes Hx Internal Defibrillator: No Hx Mitral Valve Prolapse: No Hx Pacemaker: No Hx Peripheral Edema: No Hx Peripheral Vascular Disease: No - Pulmonary Hx Respiratory Disorders: Yes Hx Asthma: Yes Hx Bronchitis: Yes Hx Chronic Obstructive Pulmonary Disease (COPD): No (denies) Hx Emphysema: No Hx Pneumonia: No Hx Respiratory Aspiration: No Hx Respiratory Tract Infection: No Hx Sleep Apnea: No Hx Tuberculosis: No - Neurological Hx Neurological Disorder: No Hx Alzheimer's Disease: No HX Cerebrovascular Accident: No Hx Dementia: No Hx Dizziness: No Hx Meningitis: No Hx Migraine: No Hx Parkinson's Disease: No Hx Seizures: No Hx Transient Ischemic Attacks (TIA): No - HEENT Hx HEENT Disorder: No (wears glasses) Hx Blind: No Hx Cataracts: No Hx Deafness: No Hx Difficulty Chewing: No Hx Epistaxis: No Hx Glaucoma: No Hx Macular Degeneration: No - Renal Hx Renal Disorder: No Hx Dialysis: No Hx Kidney Stones: No Hx Neurogenic Bladder: No Hx Pyelonephritis: No Hx Renal Cancer: No Hx Renal Failure: No - Endocrine/Metabolic Hx Endocrine Disorders: Yes Hx Adrenal Cancer: No Hx Diabetes Insipidus: No Hx Diabetes Mellitus Type 1: Yes Hx Diabetes Mellitus Type 2: No Hx Hyperthyroidism: No Hx Hypothyroidism: No Hx Systemic Lupus Erythematosus: No - Hematological/Oncological Hx Blood Disorders: Yes Hx AIDS: No Hx Anemia: No Hx Cancer: Yes (colon) Hx Chemotherapy: No Hx Cirrhosis: No Hx Hemophilia: No Hx Hepatitis A: No Hx Hepatitis B: No Hx Hepatitis C: No Hx Metastasis: No Hx Shingles: No Hx Sickle Cell Disease: No Hx Unexplained Bleeding: No Other/Comment: pancreatic and colon ca - Integumentary Hx Dermatological Disorder: No Hx Basal Cell Carcinoma: No Hx Eczema: No Hx Melanoma: No Hx Psoriasis: No Hx Squamous Cell Carcinoma: No - Musculoskeletal/Rheumatological Hx Musculoskeletal Disorders: Yes Hx Arthritis: Yes (b/l knees) Hx Degenerative Joint Disease: Yes Hx Falls: No Hx Fractures: Yes (right pinky) Hx Unsteady Gait: Yes (cane) - Gastrointestinal Hx Gastrointestinal Disorders: Yes Hx Colostomy: No Hx Crohn's Disease: No Hx Diverticulitis: No Hx Gall Bladder Disease: No Hx Gastroesophageal Reflux: Yes Hx Ileostomy: No Hx Liver Failure: No Hx Pancreatitis: No HX Swallowing Problems: No Other/Comment: colon ca with surgery - Genitourinary/Gynecological Hx Genitourinary Disorders: Yes Hx Hematuria: No Hx Incontinence: No Hx Sexually Transmitted Diseases: No Hx Urinary Tract Infection: Yes - Psychiatric Hx Psychophysiologic Disorder: No Hx Anxiety: No Hx Bipolar Disorder: No Hx Depression: No Hx Emotional Abuse: No Hx Hallucinations: No Hx Panic Disorder: No Hx Post Traumatic Stress Disorder: No Hx Psychosis: No Hx Physical Abuse: No Hx Schizophrenia: No Hx Sexual Abuse: No Hx Substance Use: No - Surgical History Hx Cardiac Catheterization: No Hx Section: Yes Hx Coronary Stent: No Other/Comment: CA Colon - whipple - Anesthesia Hx Anesthesia: Yes Hx Anesthesia Reactions: No Hx Malignant Hyperthermia: No - Suicidal Assessment Feels Threatened In Home Enviroment: No Family/Social History - Physician Review Nursing Documentation Reviewed: Yes Family/Social History: Unknown Family HX Smoking Status: Current Some Days Smoker Hx Alcohol Use: No Hx Substance Use: No Hx Substance Use Treatment: Yes Allergies/Home Meds Allergies/Adverse Reactions: Allergies acetaminophen [From Tylenol-Codeine] Allergy (Verified 11/15/17 19:21) RASH codeine Allergy (Verified 11/15/17 19:21) VOMITING iodine Allergy (Verified 11/15/17 19:21) RASH Review of Systems - Physician Review All systems were reviewed & negative as marked: Yes - Review of Systems Constitutional: Normal. absent: Fevers Eyes: Normal ENT: Normal Respiratory: Normal. absent: SOB, Cough Cardiovascular: Normal. absent: Chest Pain Gastrointestinal: Abdominal Pain, Nausea, Vomiting. absent: Diarrhea Genitourinary Female: Normal. absent: Dysuria, Frequency, Hematuria, Urine Output Changes Skin: Normal. absent: Rash Neurological: Normal. absent: Headache, Dizziness Endocrine: Normal Hemo/Lymphatic: Normal Psychiatric: Normal Physical Exam Vital Signs Reviewed: Yes Vital Signs Temp Pulse Resp BP Pulse Ox 11/15/17 09:24 54 L 18 137/78 100 11/15/17 05:48 98.6 F 79 18 132/80 99 Temperature: Afebrile Blood Pressure: Normal Pulse: Regular Respiratory Rate: Normal Appearance: Positive for: Well-Appearing, Non-Toxic, Comfortable Pain Distress: None Mental Status: Positive for: Alert and Oriented X 3 - Systems Exam Head: Present: Atraumatic, Normocephalic Pupils: Present: PERRL Extroacular Muscles: Present: EOMI Conjunctiva: Present: Normal Mouth: Present: Moist Mucous Membranes Neck: Present: Normal Range of Motion Respiratory/Chest: Present: Clear to Auscultation, Good Air Exchange. No: Respiratory Distress, Accessory Muscle Use Cardiovascular: Present: Regular Rate and Rhythm, Normal S1, S2. No: Murmurs Abdomen: Present: Normal Bowel Sounds. No: Tenderness, Distention, Peritoneal Signs Back: Present: Normal Inspection Upper Extremity: Present: Normal Inspection. No: Cyanosis, Edema Lower Extremity: Present: Normal Inspection. No: Edema Neurological: Present: GCS=15, CN II-XII Intact, Speech Normal Skin: Present: Warm, Dry, Normal Color. No: Rashes Psychiatric: Present: Alert, Oriented x 3, Normal Insight, Normal Concentration Medical Decision Making ED Course and Treatment: 11/15/17 05:58 Impression: 52 year old female complaining of lower abdominal pain radiating down left leg, nausea, and vomiting. Plan: -- US Duplex Lower Extremities -- EKG -- Labs, cardiac enzymes, amylase, lipase -- Urinalysis, urine cultures -- IV fluids -- Zofran -- Dilaudid -- Reassess and disposition Prior Visits: Notes On 10/22/2017, pt was seen in the Emergency department for abdominal pain , nausea, and vomiting. Pt was d/c home. and results from previous visits were reviewed. Progress Notes: 11/15/17 06:33 Reviewed EKG, NSR at 67 bpm. No acute changes. - Lab Interpretations Microbiology Results: Microbiology Results 11/15/17 07:00 Blood-Venous Blood Culture - Preliminary NO GROWTH AFTER 48 HOURS 11/15/17 06:49 Blood-Venous Blood Culture - Preliminary NO GROWTH AFTER 48 HOURS 11/15/17 09:30 Urine,Clean Catch Urine Culture - Final No Growth (<1,000 CFU/ML) Lab Results: 11/15/17 06:49 11/15/17 06:49 Lab Results 11/15/17 09:30: Urine Color Light yellow, Urine Appearance Clear, Urine pH 6.0, Ur Specific [place] 1.020, Urine Protein Negative, Urine Glucose (UA) >=1000, Urine Ketones >=80, Urine Blood Negative, Urine Nitrate Negative, Urine Bilirubin Negative, Urine Urobilinogen 0.2, Ur Leukocyte Esterase Negative 11/15/17 06:49: Sodium 136, Potassium 4.3, Chloride 99, Carbon Dioxide 20 L, Anion Gap 22 H, BUN 10, Creatinine 0.7, Est GFR ( Amer) > 60, Est GFR ( Non-Af Amer) > 60, Random Glucose 453 H*, Calcium 10.0, Total Bilirubin 0.6, AST 20, ALT 30, Alkaline Phosphatase 101, Lactate Dehydrogenase 348, Total Creatine Kinase 57, Troponin I < 0.01, Total Protein 7.5, Albumin 4.4, Globulin 3.1, Albumin/Globulin Ratio 1.4, Amylase 53, Lipase 44 11/15/17 06:49: PT 11.0, INR 0.96, APTT 23.4 L 11/15/17 06:49: WBC 4.1 L D, RBC 5.06, Hgb 12.9, Hct 40.3, MCV 79.6 L, MCH 25.5 , MCHC 32.0, RDW 14.9 H, Plt Count 237, MPV 9.9, Gran % 61.4, Lymph % (Auto) 32.0, [place] % (Auto) 5.6, Eos % (Auto) 0.5 L, Baso % (Auto) 0.5, Gran # 2.51, Lymph # 1.3, [place] # 0.2, Eos # 0.0, Baso # 0.02 - RAD Interpretation Radiology Orders: 11/15/17 06:21 DUPLEX LOWER EXTRM VEIN LEFT [US] Stat - EKG Interpretation Interpreted by ED Physician: Yes Type: 12 lead EKG - Medication Orders Current Medication Orders: Discontinued Medications Hydromorphone HCl (Dilaudid) 2 mg IVP STAT STA Stop: 11/15/17 06:21 Last Admin: 11/15/17 07:01 Dose: 2 mg MAR Pain Assessment Document 11/15/17 07:01 AD (Rec: 11/15/17 07:02 AD [facility] [place] [facility] [id number][place] Pain Reassessment Is this a pain reassessment? No Presence of Pain Presence of Pain Yes Pain Scale Used Pain Scale Used Numeric Location Pain Location Body Site Abdomen Description Description Constant Intensity of Pain at present 8 Pain Behavior Facial Grimacing IVP Administration Document 11/15/17 07:01 AD (Rec: 11/15/17 07:02 AD [facility] [id number]) Charges for Administration # of IVP Administrations 1 Sodium Chloride (Sodium Chloride 0.9%) 1,000 mls @ 100 mls/hr IV .Q10H STA Stop: 11/15/17 16:18 Last Admin: 11/15/17 07:02 Dose: 100 mls/hr eMAR Start Stop Document 11/15/17 07:02 AD (Rec: 11/15/17 07:03 AD [facility] [id number]) Intravenous Solution Start Date 11/15/17 Start Time 07:02 Sodium Chloride (Sodium Chloride 0.9%) 1,000 mls @ 999 mls/hr IV .Q1H1M STA Stop: 11/15/17 09:07 Insulin Human Regular (Humulin R) 15 units SC STAT STA Stop: 11/15/17 08:09 Last Admin: 11/15/17 09:26 Dose: 15 units MAR Blood Glucose Document 11/15/17 09:26 LA (Rec: 11/15/17 09:28 LA [id number]) Blood Glucose Finger Stick Blood Glucose (70-120) 453 Subcutaneous Administrations Document 11/15/17 09:26 LA (Rec: 11/15/17 09:28 LA [id number]) Injection Site MAR Injection Site Right Arm Charges for Administration # of Subcutaneous Administrations 1 Ondansetron HCl (Zofran Inj) 4 mg IVP STAT STA Stop: 11/15/17 06:20 Last Admin: 11/15/17 07:02 Dose: 4 mg IVP Administration Document 11/15/17 07:02 AD (Rec: 11/15/17 07:02 AD [facility] [id number]) Charges for Administration # of IVP Administrations 1 - Transfer of Care Patient signed out to Dr:: jose labs and dispo - Scribe Statement The provider has reviewed the documentation as recorded by the Scribe Stormy Minor All medical record entries made by the Scribe were at my direction and personally dictated by me. I have reviewed the chart and agree that the record accurately reflects my personal performance of the history, physical exam, medical decision making, and the department course for this patient. I have also personally directed, reviewed, and agree with the discharge instructions and disposition. Disposition/Present on Arrival - Present on Arrival Any Indicators Present on Arrival: No History of DVT/PE: No History of Uncontrolled Diabetes: Yes Urinary Catheter: No History of Decub. Ulcer: No History Surgical Site Infection Following: None - Disposition Have Diagnosis and Disposition been Completed?: Yes Diagnosis: Abdominal pain, Hyperglycemia Disposition: HOME/ ROUTINE Disposition Time: 07:00 Condition: IMPROVED Additional Instructions: Continue your medications; see Dr Mcclendon this week. Referrals: Ronnell Sue MD [Primary Care Provider] - Follow up with primary Forms: [employer] ([place])
[2017-11-15] MEDS ORDERED: Sodium Chloride 0.9% 1,000 ML IV STA ×2 (06:19→08:07)
[2017-11-15] MEDS ORDERED: HYDROmorphone 2 mg/ml ISec IVP STA (06:20)
--- NOTE | 2017-11-15 07:17 | ED PDOC ---
Physical Exam Vital Signs Reviewed: Yes Vital Signs Temp Pulse Resp BP Pulse Ox 11/15/17 09:24 54 L 18 137/78 100 11/15/17 05:48 98.6 F 79 18 132/80 99 Temperature: Afebrile Blood Pressure: Normal Pulse: Regular Respiratory Rate: Normal Appearance: Positive for: Well-Appearing Pain Distress: None Mental Status: Positive for: Alert and Oriented X 3 Medical Decision Making ED Course and Treatment: 11/15/17 07:16 Patient signed out to me by Dr. Verdin. Patient here in the ER for lower abdominal pain radiating down to left leg and worsens at left knee, with associated nausea and vomiting. Currently awaiting lab work and ultrasound results. 11/15/17 10:32 awake and alert; feels better; seen in ED by Dr Mcclendon; agrees with discharge and outpatient follow up. - Lab Interpretations Lab Results: 11/15/17 06:49 11/15/17 06:49 Lab Results 11/15/17 09:30: Urine Color Light yellow, Urine Appearance Clear, Urine pH 6.0, Ur Specific [place] 1.020, Urine Protein Negative, Urine Glucose (UA) >=1000, Urine Ketones >=80, Urine Blood Negative, Urine Nitrate Negative, Urine Bilirubin Negative, Urine Urobilinogen 0.2, Ur Leukocyte Esterase Negative 11/15/17 06:49: Sodium 136, Potassium 4.3, Chloride 99, Carbon Dioxide 20 L, Anion Gap 22 H, BUN 10, Creatinine 0.7, Est GFR ( Amer) > 60, Est GFR ( Non-Af Amer) > 60, Random Glucose 453 H*, Calcium 10.0, Total Bilirubin 0.6, AST 20, ALT 30, Alkaline Phosphatase 101, Lactate Dehydrogenase 348, Total Creatine Kinase 57, Troponin I < 0.01, Total Protein 7.5, Albumin 4.4, Globulin 3.1, Albumin/Globulin Ratio 1.4, Amylase 53, Lipase 44 11/15/17 06:49: PT 11.0, INR 0.96, APTT 23.4 L 11/15/17 06:49: WBC 4.1 L D, RBC 5.06, Hgb 12.9, Hct 40.3, MCV 79.6 L, MCH 25.5 , MCHC 32.0, RDW 14.9 H, Plt Count 237, MPV 9.9, Gran % 61.4, Lymph % (Auto) 32.0, Fleming % (Auto) 5.6, Eos % (Auto) 0.5 L, Baso % (Auto) 0.5, Gran # 2.51, Lymph # 1.3, Fleming # 0.2, Eos # 0.0, Baso # 0.02 - RAD Interpretation Radiology Orders: 11/15/17 06:21 DUPLEX LOWER EXTRM VEIN LEFT [US] Stat - Medication Orders Current Medication Orders: Sodium Chloride (Sodium Chloride 0.9%) 1,000 mls @ 100 mls/hr IV .Q10H STA Stop: 11/15/17 16:18 Last Admin: 11/15/17 07:02 Dose: 100 mls/hr eMAR Start Stop Document 11/15/17 07:02 AD (Rec: 11/15/17 07:03 [place] [facility] [id number] Intravenous Solution Start Date 11/15/17 Start Time 07:02 Discontinued Medications Hydromorphone HCl (Dilaudid) 2 mg IVP STAT STA Stop: 11/15/17 06:21 Last Admin: 11/15/17 07:01 Dose: 2 mg MAR Pain Assessment Document 11/15/17 07:01 AD (Rec: 11/15/17 07:02 AD [facility] [id number] Pain Reassessment Is this a pain reassessment? No Presence of Pain Presence of Pain Yes Pain Scale Used Pain Scale Used Numeric Location Pain Location Body Site Abdomen Description Description Constant Intensity of Pain at present 8 Pain Behavior Facial Grimacing IVP Administration Document 11/15/17 07:01 AD (Rec: 11/15/17 07:02 [id number]) Charges for Administration # of IVP Administrations 1 Sodium Chloride (Sodium Chloride 0.9%) 1,000 mls @ 999 mls/hr IV .Q1H1M STA Stop: 11/15/17 09:07 Insulin Human Regular (Humulin R) 15 units SC STAT STA Stop: 11/15/17 08:09 Last Admin: 11/15/17 09:26 Dose: 15 units MAR Blood Glucose Document 11/15/17 09:26 LA (Rec: 11/15/17 09:28 LA [id number]) Blood Glucose Finger Stick Blood Glucose (70-120) 453 Subcutaneous Administrations Document 11/15/17 09:26 LA (Rec: 11/15/17 09:28 LA [id number]) Injection Site MAR Injection Site Right Arm Charges for Administration # of Subcutaneous Administrations 1 Ondansetron HCl (Zofran Inj) 4 mg IVP STAT STA Stop: 11/15/17 06:20 Last Admin: 11/15/17 07:02 Dose: 4 mg IVP Administration Document 11/15/17 07:02 AD (Rec: 11/15/17 07:02 AD [facility] [id number]) Charges for Administration # of IVP Administrations 1 - Scribe Statement The provider has reviewed the documentation as recorded by the Nel Arevalo Provider Scribe Attestation: All medical record entries made by the Scribe were at my direction and personally dictated by me. I have reviewed the chart and agree that the record accurately reflects my personal performance of the history, physical exam, medical decision making, and the department course for this patient. I have also personally directed, reviewed, and agree with the discharge instructions and disposition. Disposition/Present on Arrival - Present on Arrival Any Indicators Present on Arrival: No History of DVT/PE: No History of Uncontrolled Diabetes: Yes Urinary Catheter: No History of Decub. Ulcer: No History Surgical Site Infection Following: None - Disposition Have Diagnosis and Disposition been Completed?: Yes Diagnosis: Abdominal pain, Hyperglycemia Disposition: HOME/ ROUTINE Disposition Time: 10:35 Patient Plan: Discharge Condition: IMPROVED Additional Instructions: Continue your medications; see Dr Mcclendon this week. Referrals: Ronnell Sue MD [Primary Care Provider] - Follow up with primary Forms: [employer] (Faroese)
[2017-11-15 07:23] LABS: BASO # 0.02 K/mm3 (0.0-2.0); BASO % 0.5 % (0.0-3.0); EOS % 0.5 % (1.5-5.0); GRAN # 2.51 (1.4-6.5); GRAN % 61.4 % (50.0-68.0); HEMOGLOBIN 12.9 g/dL (12.0-16.0); LYMPH # 1.3 (1.2-3.4); MEAN CELL VOLUME 79.6 fl (80.0-105.0); MEAN CORPUSCULAR HEMOGLOBIN 25.5 pg (25.0-35.0); MEAN PLATELET VOLUME 9.9 fl (7.0-11.0); MONO # 0.2 (0.1-0.6); MONO % 5.6 % (1.0-6.0); RBC 5.06 10^6/uL (3.5-6.1); RED CELL DISTRIBUTION WIDTH 14.9 % (11.5-14.5); WHITE BLOOD COUNT 4.1 10^3/ul (4.5-11.0)
[2017-11-15 07:29] LABS: ALB/GLOB RATIO 1.4 (1.1-1.8); ALBUMIN 4.4 g/dL (3.0-4.8); ALT/SGPT 30 U/L (7-56); AMYLASE 53 U/L (35-125); AST/SGOT 20 U/L (14-36); BLOOD UREA NITROGEN 10 mg/dL (7-21); GFR AFRICAN-AMERICAN > 60; GFR NON-AFRICAN AMERICAN > 60; LIPASE 44 U/L (23-300)
[2017-11-15 07:35] LABS: TROPONIN I < 0.01 ng/mL
[2017-11-15 07:42] LABS: INR 0.96 (0.93-1.08); PARTIAL THROMBOPLASTIN TIME 23.4 Seconds (25.1-36.5)
[2017-11-15] MEDS ORDERED: Insulin Regular 1 UNITS/0.01 ML ML SC STA (08:08)
[2017-11-15 09:25] VITALS: BP 137/78; PULSE 54; O2SAT 100
[2017-11-15 09:44] LABS: URINE BILIRUBIN NEGATIVE (NEGATIVE); URINE BLOOD NEGATIVE (NEGATIVE); URINE GLUCOSE (UA) >=1000 mg/dL (NEGATIVE); URINE LEUKOCYTE ESTERASE NEGATIVE Leu/uL (NEGATIVE); URINE NITRATE NEGATIVE (NEGATIVE); URINE PROTEIN NEGATIVE mg/dL (<30 mg/dL); URINE UROBILINOGEN 0.2 E.U./dL (<1 E.U./dL)
[2017-11-15 09:45] LABS: URINE APPEARANCE CLEAR (CLEAR); URINE COLOR LIGHT YELLOW (YELLOW)
--- NOTE | 2017-11-15 11:32 | US ---
PROCEDURE: Left lower extremity venous US HISTORY: Leg pain and swelling. Evaluate for DVT. PHYSICIAN(S): Brenton Crooks MD. TECHNIQUE: Duplex sonography and color-flow Doppler with graded compression were used to evaluate the deep venous system of the left lower extremity. FINDINGS: The visualized deep venous system of the left lower extremity is sonographically normal and compressible. Normal wave forms and augmentation are seen. There is no sonographic evidence for deep venous thrombosis in the visualized segments of the left lower extremity. IMPRESSION: 1. No sonographic evidence for deep venous thrombosis in the visualized segments of the left lower extremity.
--- NOTE | 2017-11-15 16:45 | CARD ---
APPROVED REPORT EKG Measurement Heart [id number] NM [id number] <Conclusion> Normal sinus rhythm Possible Left atrial enlargement Borderline ECG
== END 2017-11-16 08:29 | disposition home or self-care (01) ==
LOC: ED 05:37
DX: R10.9 Unspecified abdominal pain (principal); E10.65 Type 1 diabetes mellitus with hyperglycemia; I10 Essential (primary) hypertension; E78.5 Hyperlipidemia, unspecified; J44.9 Chronic obstructive pulmonary disease, unspecified; Z79.4 Long term (current) use of insulin; Z85.038 Personal history of other malignant neoplasm of large intestine
CPT/HCPCS: 80053; 81003; 82150; 82550; 83615; 83690; 84484; 85025; 85610; 85730; 87040; 87086; 93005; 93971; 96374; 96375; 99283; J1170; J2405; J7040

== ENCOUNTER 2017-11-15 18:39 | Emergency (ER) | payer BC, OTHER ==
[2017-11-15 18:40] VITALS: BMI 34.3
[2017-11-15 19:22] VITALS: BP 114/70; PULSE 74; RESP 18; TEMP 98.8; O2SAT 98
[2017-11-15] MEDS ORDERED: Oxycodone/Acetaminophen 5/325 mg Tab PO STA (21:05)
--- NOTE | 2017-11-15 21:25 | ED PDOC ---
Arrival/HPI - General Chief Complaint: Headache Time Seen by Provider: 11/15/17 20:56 Historian: Patient - History of Present Illness Narrative History of Present Illness (Text): 11/15/17 21:25 A 52 year old female, whose past medical history includes hypertension, chronic abdominal pain, colon cancer and pancreatic cancer s/p whipple procedure, presents to the emergency department complaining of vomiting and lower abdominal pain. Patient notes back pain radiating down her left leg for the past 4 days. Patient reports she had a flu two weeks ago. Notes she came to the emergency department earlier today for similar complaints and was discharged home. Reports she had an abdominal CAT scan done a month ago. Patient denies any other complaints at this time. PMD: Dr. Mcclendon Symptom Onset: Sudden Symptom Course: Unchanged Activities at Onset: Rest Context: Home Past Medical History - Provider Review Nursing Documentation Reviewed: Yes - Past History Past History: Non-Contributing - Infectious Disease Hx of Infectious Diseases: None - Tetanus Immunization Tetanus Immunization: Unknown - Reproductive Menopause: Yes - Cardiac Hx Cardiac Disorders: Yes Hx Angina: No Hx Cardiac Arrhythmia: No Hx Circulatory Problems: No Hx Congestive Heart Failure: No Hx Heart Murmur: No Hx Heart Transplant: No Hx Hypertension: Yes Hx Internal Defibrillator: No Hx Mitral Valve Prolapse: No Hx Pacemaker: No Hx Peripheral Edema: No Hx Peripheral Vascular Disease: No - Pulmonary Hx Respiratory Disorders: Yes Hx Asthma: Yes Hx Bronchitis: Yes Hx Chronic Obstructive Pulmonary Disease (COPD): No (denies) Hx Emphysema: No Hx Pneumonia: No Hx Respiratory Aspiration: No Hx Respiratory Tract Infection: No Hx Sleep Apnea: No Hx Tuberculosis: No - Neurological Hx Neurological Disorder: No Hx Alzheimer's Disease: No HX Cerebrovascular Accident: No Hx Dementia: No Hx Dizziness: No Hx Meningitis: No Hx Migraine: No Hx Parkinson's Disease: No Hx Seizures: No Hx Transient Ischemic Attacks (TIA): No - HEENT Hx HEENT Disorder: No (wears glasses) Hx Blind: No Hx Cataracts: No Hx Deafness: No Hx Difficulty Chewing: No Hx Epistaxis: No Hx Glaucoma: No Hx Macular Degeneration: No - Renal Hx Renal Disorder: No Hx Dialysis: No Hx Kidney Stones: No Hx Neurogenic Bladder: No Hx Pyelonephritis: No Hx Renal Cancer: No Hx Renal Failure: No - Endocrine/Metabolic Hx Endocrine Disorders: Yes Hx Adrenal Cancer: No Hx Diabetes Insipidus: No Hx Diabetes Mellitus Type 1: Yes Hx Diabetes Mellitus Type 2: No Hx Hyperthyroidism: No Hx Hypothyroidism: No Hx Systemic Lupus Erythematosus: No - Hematological/Oncological Hx Blood Disorders: Yes Hx AIDS: No Hx Anemia: No Hx Cancer: Yes (colon) Hx Chemotherapy: No Hx Cirrhosis: No Hx Hemophilia: No Hx Hepatitis A: No Hx Hepatitis B: No Hx Hepatitis C: No Hx Metastasis: No Hx Shingles: No Hx Sickle Cell Disease: No Hx Unexplained Bleeding: No Other/Comment: pancreatic and colon ca - Integumentary Hx Dermatological Disorder: No Hx Basal Cell Carcinoma: No Hx Eczema: No Hx Melanoma: No Hx Psoriasis: No Hx Squamous Cell Carcinoma: No - Musculoskeletal/Rheumatological Hx Musculoskeletal Disorders: Yes Hx Arthritis: Yes (b/l knees) Hx Degenerative Joint Disease: Yes Hx Falls: No Hx Fractures: Yes (right pinky) Hx Unsteady Gait: Yes (cane) - Gastrointestinal Hx Gastrointestinal Disorders: Yes Hx Colostomy: No Hx Crohn's Disease: No Hx Diverticulitis: No Hx Gall Bladder Disease: No Hx Gastroesophageal Reflux: Yes Hx Ileostomy: No Hx Liver Failure: No Hx Pancreatitis: No HX Swallowing Problems: No Other/Comment: colon ca with surgery - Genitourinary/Gynecological Hx Genitourinary Disorders: Yes Hx Hematuria: No Hx Incontinence: No Hx Sexually Transmitted Diseases: No Hx Urinary Tract Infection: Yes - Psychiatric Hx Psychophysiologic Disorder: No Hx Anxiety: No Hx Bipolar Disorder: No Hx Depression: No Hx Emotional Abuse: No Hx Hallucinations: No Hx Panic Disorder: No Hx Post Traumatic Stress Disorder: No Hx Psychosis: No Hx Physical Abuse: No Hx Schizophrenia: No Hx Sexual Abuse: No Hx Substance Use: No - Surgical History Hx Cardiac Catheterization: No Hx Section: Yes Hx Coronary Stent: No Other/Comment: CA Colon - whipple - Anesthesia Hx Anesthesia: Yes Hx Anesthesia Reactions: No Hx Malignant Hyperthermia: No - Suicidal Assessment Feels Threatened In Home Enviroment: No Family/Social History - Physician Review Nursing Documentation Reviewed: Yes Family/Social History: No Known Family HX Smoking Status: Current Some Days Smoker Hx Alcohol Use: No Hx Substance Use: No Hx Substance Use Treatment: Yes Allergies/Home Meds Allergies/Adverse Reactions: Allergies acetaminophen [From Tylenol-Codeine] Allergy (Verified 11/15/17 19:21) RASH codeine Allergy (Verified 11/15/17 19:21) VOMITING iodine Allergy (Verified 11/15/17 19:21) RASH Review of Systems - Physician Review All systems were reviewed & negative as marked: Yes - Review of Systems Gastrointestinal: Abdominal Pain (lower), Vomiting Musculoskeletal: Back Pain, Other (left leg pain) Physical Exam Vital Signs Reviewed: Yes Vital Signs Temp Pulse Resp BP Pulse Ox 11/15/17 19:18 98.8 F 74 18 114/70 98 Temperature: Afebrile Blood Pressure: Normal Pulse: Regular Respiratory Rate: Normal Appearance: Positive for: Well-Appearing, Non-Toxic, Comfortable Pain Distress: None Mental Status: Positive for: Alert and Oriented X 3 - Systems Exam Head: Present: Atraumatic, Normocephalic Pupils: Present: PERRL Extroacular Muscles: Present: EOMI Conjunctiva: Present: Normal Mouth: Present: Moist Mucous Membranes Neck: Present: Normal Range of Motion Respiratory/Chest: Present: Clear to Auscultation, Good Air Exchange. No: Respiratory Distress, Accessory Muscle Use Cardiovascular: Present: Regular Rate and Rhythm, Normal S1, S2. No: Murmurs Abdomen: Present: Normal Bowel Sounds. No: Tenderness, Distention, Peritoneal Signs Back: Present: Normal Inspection Upper Extremity: Present: Normal Inspection. No: Cyanosis, Edema Lower Extremity: Present: Normal Inspection. No: Edema Neurological: Present: GCS=15, CN II-XII Intact, Speech Normal Skin: Present: Warm, Dry, Normal Color. No: Rashes Psychiatric: Present: Alert, Oriented x 3, Normal Insight, Normal Concentration Medical Decision Making ED Course and Treatment: 11/15/17 21:23 Impression: A 52 year old female with vomiting, lower abdominal pain and back pain radiating to left leg. Plan: -- CT lumbar spine -- US abdomen -- Percocet, Zofran -- Reassess and disposition Prior Visits: Notes and results from previous visits were reviewed. Patient last reported to the emergency department earlier today for similar complaints. Progress Notes: CT Lumbar Spine Without Intravenous Contrast FINDINGS: Vertebrae: T11, T12 and 5 lumbar vertebral bodies are normal in height and alignment. There is minimal spondylosis T11 and T12. Disc spaces are maintained. There is mild disc bulging L4-L5 and L5-S1, unchanged. Facet joints align anatomically. There is facet arthropathy greatest at L4-L5 at L5- S1. Sacrum and pelvis are unremarkable. Psoas and paraspinous muscles are symmetric. Discs/spinal canal/neural foramina: see above Soft tissues: See above. Vasculature: There are vascular calcifications. Lymph nodes: There is shotty adenopathy. Gallbladder and bile ducts: There are postsurgical changes in the joshua hepatis. There is pneumobilia. Pancreas: Pancreas is mildly atrophic with postsurgical change. Adrenals: There is a left adrenal nodule. IMPRESSION: Degenerative change, no acute osseous abnormality. Dictated and Authenticated by: Kaylynn Michel MD 11/15/2017 11:42 PM Eastern Time ([place] & [place]) US Abdomen Complete FINDINGS: Liver: There is hepatopedal flow in the main portal vein. Liver is mildly heterogeneous. There is shadowing from pneumobilia. Gallbladder: Gallbladder is surgically absent. Common bile duct: Common bile duct measures 7 mm in diameter. Pancreas: Pancreas is partially obscured by bowel gas. Kidneys: Kidneys are unremarkable. Spleen: Spleen is unremarkable. Aorta: Visualized portions of the aorta and inferior vena cava are unremarkable. Inferior vena cava: See above. IMPRESSION: Cholecystectomy with prominent common duct; shadowing from pneumobilia; limited evaluation of pancreas. Dictated and Authenticated by: Kaylynn Michel MD 11/15/2017 11:50 PM Eastern Time ([place] & [place]) - RAD Interpretation Radiology Orders: 11/15/17 21:03 LUMBAR SPINE W/O CONTRAST [CT] Stat ABDOMEN COMPLETE [US] Stat - Medication Orders Current Medication Orders: Discontinued Medications Ondansetron HCl (Zofran Odt) 4 mg PO STAT STA Stop: 11/15/17 21:06 Last Admin: 11/15/17 21:49 Dose: 4 mg Oxycodone/Acetaminophen (Percocet 5/325 Mg Tab) 2 tab PO STAT STA Stop: 11/15/17 21:06 Last Admin: 11/15/17 21:47 Dose: 2 tab MAR Pain Assessment Document 11/15/17 21:47 AD (Rec: 11/15/17 21:49 AD [facility] [id number] Pain Reassessment Is this a pain reassessment? No Presence of Pain Presence of Pain Yes Pain Scale Used Pain Scale Used Numeric Description Intensity of Pain at present 8 Pain Behavior Facial Grimacing - Scribe Statement The provider has reviewed the documentation as recorded by the Scribe Jose Rojas All medical record entries made by the Scribe were at my direction and personally dictated by me. I have reviewed the chart and agree that the record accurately reflects my personal performance of the history, physical exam, medical decision making, and the department course for this patient. I have also personally directed, reviewed, and agree with the discharge instructions and disposition. Disposition/Present on Arrival - Present on Arrival Any Indicators Present on Arrival: Yes History of DVT/PE: No History of Uncontrolled Diabetes: Yes Urinary Catheter: No History of Decub. Ulcer: No History Surgical Site Infection Following: None - Disposition Have Diagnosis and Disposition been Completed?: Yes Diagnosis: Sciatica, Abdominal pain, Nausea & vomiting Disposition: HOME/ ROUTINE Disposition Time: 00:06 Patient Plan: Discharge Patient Problems: Current Active Problems Problem Status Onset Abdominal pain Acute Hyperglycemia Acute Nausea & vomiting Acute Sciatica Acute Condition: IMPROVED Discharge Instructions (ExitCare): Sciatica (ED), Lumbar Radiculopathy (ED), Acute Nausea and Vomiting (ED) Additional Instructions: Mrs Parker - Will you are so uncomfortable. You have sciatica (leg and back pain) not sure why you are so nauseated, it may be from the pain. Use the Zofran for Nausea, use the Percocet for pain, Follow up with your doctor later today (Wednesday). Your scans are unremarkable/nondiagnsotic. Micky- Dr. Fortunato Goodman Referrals: Mayur Mcclendon, DO [Primary Care Provider] - Follow up with primary Forms: [employer] (Romanian)
--- NOTE | 2017-11-15 23:43 | CT ---
EXAM: CT Lumbar Spine Without Intravenous Contrast EXAM DATE/TIME: 11/15/2017 9:03 PM CLINICAL HISTORY: 52 years old, female; Pain; Low back pain; Additional info: Left leg radiculopathy TECHNIQUE: Axial computed tomography images of the lumbar spine without intravenous contrast. All CT scans at this facility use one or more dose reduction techniques, viz.: automated exposure control; ma/kV adjustment per patient size (including targeted exams where dose is matched to indication; i.e. head); or iterative reconstruction technique. Coronal and sagittal reformatted images were created and reviewed. COMPARISON: CT abdomen pelvis 10/21/17 FINDINGS: Vertebrae: T11, T12 and 5 lumbar vertebral bodies are normal in height and alignment. There is minimal spondylosis T11 and T12. Disc spaces are maintained. There is mild disc bulging L4-L5 and L5-S1, unchanged. Facet joints align anatomically. There is facet arthropathy greatest at L4-L5 at L5-S1. Sacrum and pelvis are unremarkable. Psoas and paraspinous muscles are symmetric. Discs/spinal canal/neural foramina: see above Soft tissues: See above. Vasculature: There are vascular calcifications. Lymph nodes: There is shotty adenopathy. Gallbladder and bile ducts: There are postsurgical changes in the joshua hepatis. There is pneumobilia. Pancreas: Pancreas is mildly atrophic with postsurgical change. Adrenals: There is a left adrenal nodule. IMPRESSION: Degenerative change, no acute osseous abnormality
--- NOTE | 2017-11-15 23:50 | US ---
EXAM: US Abdomen Complete EXAM DATE/TIME: 11/15/2017 9:03 PM CLINICAL HISTORY: 52 years old, female; Pain; Abdominal pain; Generalized; Additional info: Vomiting bile, R/O cholelithiasis ADDITIONAL HISTORY: Prior Whipple procedure and cholecystectomy TECHNIQUE: Real-time ultrasound of the abdomen (complete) with image documentation. COMPARISON: CT - ABD PELVIS W/O PO OR IV CONT 2017-10-21 11:34 FINDINGS: Liver: There is hepatopedal flow in the main portal vein. Liver is mildly heterogeneous. There is shadowing from pneumobilia. Gallbladder: Gallbladder is surgically absent. Common bile duct: Common bile duct measures 7 mm in diameter. Pancreas: Pancreas is partially obscured by bowel gas. Kidneys: Kidneys are unremarkable. Spleen: Spleen is unremarkable. Aorta: Visualized portions of the aorta and inferior vena cava are unremarkable. Inferior vena cava: See above. IMPRESSION: Cholecystectomy with prominent common duct; shadowing from pneumobilia; limited evaluation of pancreas
== END 2017-11-16 00:20 | disposition home or self-care (01) ==
LOC: ED 18:39
DX: R11.2 Nausea with vomiting, unspecified (principal); R10.30 Lower abdominal pain, unspecified; M54.30 Sciatica, unspecified side; E11.9 Type 2 diabetes mellitus without complications; I10 Essential (primary) hypertension; Z85.038 Personal history of other malignant neoplasm of large intestine

== ENCOUNTER 2017-12-12 04:03 | Observation (INO) | payer BC, OTHER ==
[2017-12-12 04:04] VITALS: BMI 34.3
--- NOTE | 2017-12-12 04:53 | ED PDOC ---
Arrival/HPI - General Chief Complaint: Lower Extremity Problem/Injury Time Seen by Provider: 12/12/17 04:32 Historian: Patient - History of Present Illness Narrative History of Present Illness (Text): 12/12/17 04:40 52 year old female, whose past medical history includes hypertension, chronic abdominal pain, colon cancer and pancreatic cancer s/p whipple procedure, presents to the emergency department complaining elevated blood sugar today and worsening left back pain radiating to the left leg. Patient reports taking an additional dosage of insulin earlier. Patient also reports nausea,intermittent dizziness but denies any fever, chills, chest pain, shortness of breath, vomiting, diarrhea, urinary symptoms, neck pain, headache. PMD: Dr. Mcclendon Time/Duration: 24 hours Symptom Onset: Gradual Symptom Course: Unchanged Activities at Onset: Light Context: Home Past Medical History - Provider Review Nursing Documentation Reviewed: Yes - Past History Past History: Non-Contributing - Infectious Disease Hx of Infectious Diseases: None - Tetanus Immunization Tetanus Immunization: Unknown - Cardiac Hx Cardiac Disorders: Yes Hx Angina: No Hx Cardiac Arrhythmia: No Hx Circulatory Problems: No Hx Congestive Heart Failure: No Hx Heart Murmur: No Hx Heart Transplant: No Hx Hypertension: Yes Hx Internal Defibrillator: No Hx Mitral Valve Prolapse: No Hx Pacemaker: No Hx Peripheral Edema: No Hx Peripheral Vascular Disease: No - Pulmonary Hx Respiratory Disorders: Yes Hx Asthma: Yes Hx Bronchitis: Yes Hx Chronic Obstructive Pulmonary Disease (COPD): No (denies) Hx Emphysema: No Hx Pneumonia: No Hx Respiratory Aspiration: No Hx Respiratory Tract Infection: No Hx Sleep Apnea: No Hx Tuberculosis: No - Neurological Hx Neurological Disorder: No Hx Alzheimer's Disease: No HX Cerebrovascular Accident: No Hx Dementia: No Hx Dizziness: No Hx Meningitis: No Hx Migraine: No Hx Parkinson's Disease: No Hx Seizures: No Hx Transient Ischemic Attacks (TIA): No - HEENT Hx HEENT Disorder: No (wears glasses) Hx Blind: No Hx Cataracts: No Hx Deafness: No Hx Difficulty Chewing: No Hx Epistaxis: No Hx Glaucoma: No Hx Macular Degeneration: No - Renal Hx Renal Disorder: No Hx Dialysis: No Hx Kidney Stones: No Hx Neurogenic Bladder: No Hx Pyelonephritis: No Hx Renal Cancer: No Hx Renal Failure: No - Endocrine/Metabolic Hx Endocrine Disorders: Yes Hx Adrenal Cancer: No Hx Diabetes Insipidus: No Hx Diabetes Mellitus Type 1: Yes Hx Diabetes Mellitus Type 2: No Hx Hyperthyroidism: No Hx Hypothyroidism: No Hx Systemic Lupus Erythematosus: No - Hematological/Oncological Hx Blood Disorders: Yes Hx AIDS: No Hx Anemia: No Hx Cancer: Yes (colon) Hx Chemotherapy: No Hx Cirrhosis: No Hx Hemophilia: No Hx Hepatitis A: No Hx Hepatitis B: No Hx Hepatitis C: No Hx Metastasis: No Hx Shingles: No Hx Sickle Cell Disease: No Hx Unexplained Bleeding: No Other/Comment: pancreatic and colon ca - Integumentary Hx Dermatological Disorder: No Hx Basal Cell Carcinoma: No Hx Eczema: No Hx Melanoma: No Hx Psoriasis: No Hx Squamous Cell Carcinoma: No - Musculoskeletal/Rheumatological Hx Musculoskeletal Disorders: Yes Hx Arthritis: Yes (b/l knees) Hx Degenerative Joint Disease: Yes Hx Falls: No Hx Fractures: Yes (right pinky) Hx Unsteady Gait: Yes (cane) - Gastrointestinal Hx Gastrointestinal Disorders: Yes Hx Colostomy: No Hx Crohn's Disease: No Hx Diverticulitis: No Hx Gall Bladder Disease: No Hx Gastroesophageal Reflux: Yes Hx Ileostomy: No Hx Liver Failure: No Hx Pancreatitis: No HX Swallowing Problems: No Other/Comment: colon ca with surgery - Genitourinary/Gynecological Hx Genitourinary Disorders: Yes Hx Hematuria: No Hx Incontinence: No Hx Sexually Transmitted Diseases: No Hx Urinary Tract Infection: Yes - Psychiatric Hx Psychophysiologic Disorder: No Hx Anxiety: No Hx Bipolar Disorder: No Hx Depression: No Hx Emotional Abuse: No Hx Hallucinations: No Hx Panic Disorder: No Hx Post Traumatic Stress Disorder: No Hx Psychosis: No Hx Physical Abuse: No Hx Schizophrenia: No Hx Sexual Abuse: No Hx Substance Use: No - Surgical History Hx Cardiac Catheterization: No Hx Section: Yes Hx Coronary Stent: No Other/Comment: CA Colon - whipple - Anesthesia Hx Anesthesia: Yes Hx Anesthesia Reactions: No Hx Malignant Hyperthermia: No - Suicidal Assessment Feels Threatened In Home Enviroment: No Family/Social History - Physician Review Nursing Documentation Reviewed: Yes Family/Social History: No Known Family HX Smoking Status: Current Some Days Smoker Hx Alcohol Use: No Hx Substance Use: No Hx Substance Use Treatment: Yes Allergies/Home Meds Allergies/Adverse Reactions: Allergies acetaminophen [From Tylenol-Codeine] Allergy (Verified 12/12/17 04:32) RASH codeine Allergy (Verified 12/12/17 04:32) VOMITING iodine Allergy (Verified 12/12/17 04:32) RASH Home Medications: Home Meds Medication Instructions Recorded Confirmed Gabapentin [Neurontin] 100 mg PO BID 12/12/17 12/12/17 Sitagliptin Phos/Metformin HCl 1 tab PO BID 12/12/17 12/12/17 [Janumet 50-1,000 mg Tablet] Review of Systems - Physician Review All systems were reviewed & negative as marked: Yes - Review of Systems Constitutional: absent: Fevers, Other Respiratory: absent: SOB Cardiovascular: absent: Chest Pain Gastrointestinal: Nausea. absent: Diarrhea, Vomiting Genitourinary Female: absent: Dysuria, Frequency, Hematuria Musculoskeletal: Back Pain (left sided back pain radiating to left leg ). absent: Neck Pain Neurological: absent: Headache, Dizziness Physical Exam Vital Signs Reviewed: Yes Vital Signs Temp Pulse Resp BP Pulse Ox 12/12/17 16:00 48 L 18 165/55 H 99 12/12/17 15:58 45 L 18 155/69 H 99 12/12/17 14:38 97.9 F 52 L 18 148/77 98 12/12/17 12:51 98 F 51 L 18 144/77 98 12/12/17 12:36 98.0 F 18 147/92 H 12/12/17 09:07 98.0 F 18 147/92 H 97 12/12/17 08:42 97.9 F 55 L 18 138/79 97 12/12/17 04:20 98.1 F 46 L 18 148/79 96 Temperature: Afebrile Blood Pressure: Normal Pulse: Bradycardic Respiratory Rate: Normal Appearance: Positive for: Well-Appearing, Non-Toxic, Comfortable Pain Distress: None Mental Status: Positive for: Alert and Oriented X 3 Finger Stick Blood Glucose: 268 - Systems Exam Head: Present: Atraumatic, Normocephalic Pupils: Present: PERRL Extroacular Muscles: Present: EOMI Conjunctiva: Present: Normal Mouth: Present: Moist Mucous Membranes Neck: Present: Normal Range of Motion Respiratory/Chest: Present: Clear to Auscultation, Good Air Exchange. No: Respiratory Distress, Accessory Muscle Use Cardiovascular: Present: Regular Rate and Rhythm, Normal S1, S2. No: Murmurs Abdomen: Present: Normal Bowel Sounds, Other (Discomfort to the left flank area) . No: Tenderness, Distention, Peritoneal Signs Back: Present: Normal Inspection Upper Extremity: Present: Normal Inspection. No: Cyanosis, Edema Lower Extremity: Present: Normal Inspection. No: Edema Neurological: Present: GCS=15, CN II-XII Intact, Speech Normal Skin: Present: Warm, Dry, Normal Color. No: Rashes Psychiatric: Present: Alert, Oriented x 3, Normal Insight, Normal Concentration Medical Decision Making ED Course and Treatment: 12/12/17 04:40 Impression: 52 year old female presents complaining of elevated blood sugar and left flank pain radiating to the left leg associated with nausea/dizziness. Plan: -- EKG -- Labs -- Chest X-ray -- LS Spine X-Ray -- Urinalysis -- Reassess and disposition Prior Visits: Notes and results from previous visits were reviewed. Patient was last seen in the emergency department on 11/15/17 presents complaining of vomiting and lower abdominal pain. Patient was discharged. Progress Notes: EKG shows Sinus Bradycardia at 42 BPM with no acute changes. Interpreted by me. 12/12/17 06:00 LS Spine X-ray Impression: As read by me, Negative 12/12/17 06:19 CXR Impression: As read by me, no acute processes. 12/12/17 06:45 Case was d/w who accepted pt. to his service. - Lab Interpretations Lab Results: 12/12/17 05:02 Lab Results 12/12/17 05:02: WBC 3.8 L, RBC 4.90, Hgb 12.6, Hct 39.2, MCV 80.0, MCH 25.7, MCHC 32.1, RDW 15.3 H, Plt Count 181, MPV 8.7 I have reviewed the lab results: Yes - RAD Interpretation Radiology Orders: 12/12/17 04:44 CHEST ONE VIEW [RAD] Stat 12/12/17 04:52 LS SPINE AP/LAT [RAD] Stat - EKG Interpretation Interpreted by ED Physician: Yes Type: 12 lead EKG - Medication Orders Current Medication Orders: Gabapentin (Neurontin) 100 mg PO BID NADYA PRN Reason: Protocol Last Admin: 12/12/17 19:23 Dose: Sodium Chloride (Sodium Chloride 0.45%) 1,000 mls @ 30 mls/hr IV .Q24H NADYA Last Admin: 12/12/17 12:06 Dose: 30 mls/hr eMAR Start Stop Document 12/12/17 12:06 EAR (Rec: 12/12/17 12:07 EAR [id number]) Intravenous Solution Start Date 12/12/17 Start Time 12:06 End Date 12/13/17 End time 12:00 Total Infusion Time 1434 Insulin Human Regular (Humulin R High) 0 units SC ACHS NADYA PRN Reason: Protocol Last Admin: 12/12/17 19:22 Dose: Ketorolac Tromethamine (Toradol) 30 mg IVP Q8H PRN PRN Reason: Pain, moderate (4-7) Last Admin: 12/12/17 18:05 Dose: 30 mg MAR Pain Assessment Document 12/12/17 18:05 (Rec: 12/12/17 18:05 [email or web address]) Pain Reassessment Is this a pain reassessment? No IVP Administration Document 12/12/17 18:05 (Rec: 12/12/17 18:05 [email or web address]) Charges for Administration # of IVP Administrations 1 Metformin HCl (Glucophage) 1,000 mg PO BID [facility] Last Admin: 12/12/17 19:22 Dose: Ondansetron HCl (Zofran Inj) 4 mg IVP Q6 PRN PRN Reason: Nausea/Vomiting Last Admin: 12/12/17 17:20 Dose: 4 mg IVP Administration Document 12/12/17 17:20 (Rec: 12/12/17 17:20 [email or web address]) Charges for Administration # of IVP Administrations 1 Sitagliptin Phosphate (Januvia) 50 mg PO BID [facility] Last Admin: 12/12/17 19:23 Dose: Tramadol HCl (Ultram) 50 mg PO Q8 PRN PRN Reason: Pain, moderate (4-7) Last Admin: 12/12/17 17:17 Dose: 50 mg MAR Pain Assessment Document 12/12/17 17:17 [facility] (Rec: 12/12/17 17:18 [id number] Pain Reassessment Is this a pain reassessment? No Sleep Is patient sleeping during reassessment? No Presence of Pain Presence of Pain Yes Pain Scale Used Pain Scale Used Numeric Location Pain Location Body Site Abdomen Hip Description Description Intermittent Intensity of Pain at present 10 Discontinued Medications Ketorolac Tromethamine (Toradol) 30 mg IVP ONCE ONE Stop: 12/12/17 04:58 Last Admin: 12/12/17 05:37 Dose: 30 mg MAR Pain Assessment Document 12/12/17 05:37 IT (Rec: 12/12/17 05:37 IT [id number]) Pain Reassessment Is this a pain reassessment? No Sleep Is patient sleeping during reassessment? No Presence of Pain Presence of Pain Yes Pain Scale Used Pain Scale Used Numeric IVP Administration Document 12/12/17 05:37 IT (Rec: 12/12/17 05:37 IT [id number]) Charges for Administration # of IVP Administrations 1 Re-Assess: MAR Pain Assessment Document 12/12/17 06:37 EAR (Rec: 12/12/17 09:48 EAR [id number]) Pain Reassessment Is this a pain reassessment? Yes Sleep Is patient sleeping during reassessment? No Presence of Pain Presence of Pain No Location Left, Right or Bilateral Left Pain Location Body Site Leg Description Description Intermittent - Scribe Statement The provider has reviewed the documentation as recorded by the Nel Larios Provider Scribe Attestation: All medical record entries made by the Nel were at my direction and personally dictated by me. I have reviewed the chart and agree that the record accurately reflects my personal performance of the history, physical exam, medical decision making, and the department course for this patient. I have also personally directed, reviewed, and agree with the discharge instructions and disposition. Disposition/Present on Arrival - Present on Arrival Any Indicators Present on Arrival: No History of DVT/PE: No History of Uncontrolled Diabetes: No Urinary Catheter: No History of Decub. Ulcer: No History Surgical Site Infection Following: None - Disposition Have Diagnosis and Disposition been Completed?: Yes Diagnosis: Bradycardia, Dizziness, Sciatica Disposition: HOSPITALIZED Disposition Time: 06:45 Condition: STABLE
[2017-12-12 05:27] LABS: HEMOGLOBIN 12.6 g/dL (12.0-16.0); MEAN CORPUSCULAR HEMOGLOBIN 25.7 pg (25.0-35.0); MEAN CORPUSCULAR HGB CONC 32.1 g/dl (31.0-37.0); MEAN PLATELET VOLUME 8.7 fl (7.0-11.0); RBC 4.9 10^6/uL (3.5-6.1); RED CELL DISTRIBUTION WIDTH 15.3 % (11.5-14.5); WHITE BLOOD COUNT 3.8 10^3/ul (4.5-11.0)
[2017-12-12 07:14] LABS: INR 0.96 (0.93-1.08); PARTIAL THROMBOPLASTIN TIME 23.6 Seconds (25.1-36.5)
[2017-12-12 07:24] LABS: ALB/GLOB RATIO 1.5 (1.1-1.8); ALT/SGPT 25 U/L (7-56); AST/SGOT 14 U/L (14-36); BLOOD UREA NITROGEN 14 mg/dL (7-21); CALCIUM 9.7 mg/dL (8.4-10.5); GFR AFRICAN-AMERICAN > 60; GFR NON-AFRICAN AMERICAN > 60
[2017-12-12 07:26] LABS: TROPONIN I < 0.01 ng/mL
--- NOTE | 2017-12-12 08:26 | CARD ---
APPROVED REPORT EKG Measurement Heart [id number] <Conclusion> Marked sinus bradycardia, new
--- NOTE | 2017-12-12 09:32 | RAD ---
PROCEDURE: CHEST RADIOGRAPH, 1 VIEW HISTORY: medical clearance COMPARISON: Comparison chest dated 05/24/2017 FINDINGS: LUNGS: Minor bibasilar atelectasis left greater than right PLEURA: No pneumothorax or pleural fluid seen. CARDIOVASCULAR: Normal. OSSEOUS STRUCTURES: No significant abnormalities. VISUALIZED UPPER ABDOMEN: Normal. OTHER FINDINGS: None. IMPRESSION: Minor bibasilar atelectasis left greater than right
--- NOTE | 2017-12-12 09:35 | RAD ---
PROCEDURE: Radiographs of the Lumbar Spine. HISTORY: Left lower back pain COMPARISON: No prior. FINDINGS: BONES: No acute compression fractures no retropulsed fragments. Vertebral bodies exhibit relatively normal stature. Vertebral bodies and facets normally aligned. DISC SPACES: Disc space heights relatively maintained. Small marginal anterolateral osteophyte formation seen at several levels. Facet joints are all also mildly hypertrophic L5-S1 through the L2-L3 levels in decreasing order of severity OTHER FINDINGS: Note made of multiple metallic clips in the left right upper abdomen with several clips in the left parasagittal upper/ mid abdomen IMPRESSION: No acute fractures. Mild degenerative spondylosis as above.
[2017-12-12] MEDS ORDERED: Insulin Reg-LOW-Coverage SC SCH (11:30)
[2017-12-12] MEDS: Sodium Chloride 0.45% 1,000 ML IV SCH (12:06)
[2017-12-12] MEDS: Insulin Reg-HIGH-Coverage SC SCH ×3 (12:50→21:48)
[2017-12-12] MEDS ORDERED: Non Formulary Medication (Sitagliptin Phos/Metformin Hcl [Janumet 50-1,000 Mg Tablet] 1 TA PO SCH (18:00)
[2017-12-12] MEDS ORDERED: oxyCODONE 80 mg ER Tab (oxyCONTIN) PO STA (20:51)
--- NOTE | 2017-12-12 22:12 | CP.PCM.PN ---
Subjective - Date & Time of Evaluation Date of Evaluation: 12/12/17 Time of Evaluation: 22:08 - Subjective Subjective: Patient was seen at bedside. She complained of all body ache, right hip pain radiating to leg. States that she is on oxycontin 80 mg po at home for this pain. Has no other complaints at this time. Medical record was reviewed. This 52 year old woman was admitted with elevated blood sugar level, left sided back pain radiating to left leg. Has PMH of HTN, colon cancer, pancreatic cancer, chronic abdominal pain , S/P Whipple's procedure. Objective - Vital Signs/Intake and Output Vital Signs (last 24 hours): Temp Pulse Resp BP Pulse Ox 98.5 F 43 L 18 185/89 H 98 12/12/17 17:22 12/12/17 17:22 12/12/17 17:22 12/12/17 17:22 12/12/17 17:22 - Medications Medications: Current Medications Gabapentin (Neurontin) 100 mg PO BID NADYA PRN Reason: Protocol Last Admin: 12/12/17 19:23 Dose: Not Given Sodium Chloride (Sodium Chloride 0.45%) 1,000 mls @ 30 mls/hr IV .Q24H [facility] Last Admin: 12/12/17 12:06 Dose: 30 mls/hr Insulin Human Regular (Humulin R High) 0 units SC ACHS [facility] PRN Reason: Protocol Last Admin: 12/12/17 21:48 Dose: Not Given Ketorolac Tromethamine (Toradol) 30 mg IVP Q8H PRN PRN Reason: Pain, moderate (4-7) Last Admin: 12/12/17 18:05 Dose: 30 mg Metformin HCl (Glucophage) 1,000 mg PO BID [facility] Last Admin: 12/12/17 19:22 Dose: Not Given Ondansetron HCl (Zofran Inj) 4 mg IVP Q6 PRN PRN Reason: Nausea/Vomiting Last Admin: 12/12/17 17:20 Dose: 4 mg Sitagliptin Phosphate (Januvia) 50 mg PO BID [facility] Last Admin: 12/12/17 19:23 Dose: Not Given Tramadol HCl (Ultram) 50 mg PO Q8 PRN PRN Reason: Pain, moderate (4-7) Last Admin: 12/12/17 17:17 Dose: 50 mg - Labs Labs: PT 11.0 SECONDS (9.4-12.5) 12/12/17 06:45 INR 0.96 (0.93-1.08) 12/12/17 06:45 APTT 23.6 Seconds (25.1-36.5) L 12/12/17 06:45 Most Recent Lab Values WBC 3.8 10^3/ul (4.5-11.0) L 12/12/17 05:02 RBC 4.90 10^6/uL (3.5-6.1) 12/12/17 05:02 Hgb 12.6 g/dL (12.0-16.0) 12/12/17 05:02 Hct 39.2 % (36.0-48.0) 12/12/17 05:02 MCV 80.0 fl (80.0-105.0) 12/12/17 05:02 MCH 25.7 pg (25.0-35.0) 12/12/17 05:02 MCHC 32.1 g/dl (31.0-37.0) 12/12/17 05:02 RDW 15.3 % (11.5-14.5) H 12/12/17 05:02 Plt Count 181 10^3/uL (120.0-450.0) 12/12/17 05:02 MPV 8.7 fl (7.0-11.0) 12/12/17 05:02 PT 11.0 SECONDS (9.4-12.5) 12/12/17 06:45 INR 0.96 (0.93-1.08) 12/12/17 06:45 APTT 23.6 Seconds (25.1-36.5) L 12/12/17 06:45 Sodium 140 mmol/L (132-148) 12/12/17 06:45 Potassium 4.0 mmol/L (3.6-5.0) 12/12/17 06:45 Chloride 105 mmol/L (98-107) 12/12/17 06:45 Carbon Dioxide 22 mmol/L (21-33) 12/12/17 06:45 Anion Gap 17 (10-20) 12/12/17 06:45 BUN 14 mg/dL (7-21) 12/12/17 06:45 Creatinine 0.6 mg/dl (0.7-1.2) L 12/12/17 06:45 Est GFR ( Amer) > 60 12/12/17 06:45 Est GFR (Non-Af Amer) > 60 12/12/17 06:45 POC Glucose (mg/dL) 233 mg/dL (65-110) H 12/12/17 21:43 Random Glucose 333 mg/dL (70-110) H* D 12/12/17 06:45 Calcium 9.7 mg/dL (8.4-10.5) 12/12/17 06:45 Total Bilirubin 0.6 mg/dL (0.2-1.3) 12/12/17 06:45 AST 14 U/L (14-36) D 12/12/17 06:45 ALT 25 U/L (7-56) 12/12/17 06:45 Alkaline Phosphatase 90 U/L (38-126) 12/12/17 06:45 Lactate Dehydrogenase 336 U/L (333-699) 12/12/17 06:45 Total Creatine Kinase 66 U/L (35-230) 12/12/17 06:45 Troponin I < 0.01 ng/mL 12/12/17 06:45 Total Protein 6.8 g/dL (5.8-8.3) 12/12/17 06:45 Albumin 4.0 g/dL (3.0-4.8) 12/12/17 06:45 Globulin 2.8 gm/dL 12/12/17 06:45 Albumin/Globulin Ratio 1.5 (1.1-1.8) 12/12/17 06:45 - Constitutional Appears: Well, No Acute Distress - Head Exam Head Exam: ATRAUMATIC, NORMAL INSPECTION, NORMOCEPHALIC - Eye Exam Eye Exam: Normal appearance - ENT Exam ENT Exam: Normal External Ear Exam - Neck Exam Neck Exam: Normal Inspection - Respiratory Exam Respiratory Exam: NORMAL BREATHING PATTERN - Cardiovascular Exam Cardiovascular Exam: absent: JVD - GI/Abdominal Exam GI & Abdominal Exam: absent: Distended - Rectal Exam Rectal Exam: Deferred - Exam Additional comments: Deferred. - Extremities Exam Extremities Exam: Normal Inspection - Back Exam Back Exam: NORMAL INSPECTION - Neurological Exam Neurological Exam: Alert, Oriented x3 - Psychiatric Exam Psychiatric exam: Normal Affect, Normal Mood - Skin Skin Exam: Normal Color Assessment and Plan - Assessment and Plan (Free Text) Assessment: Bodyache. Back pain radiating to left leg. History colon cancer. History pancreatic cancer. Hyperglycemia. Plan: Oxycontin 80 mg PO now. Continue present management as per PMD.
--- NOTE | 2017-12-12 22:26 | HP ---
DATE OF EXAM: HISTORY OF PRESENT ILLNESS: I was called down to the emergency room to see Marizol. She comes in with abdominal pain, which is chronic, but also a bradycardia which is new, also left low back pain. We will get an x-ray, should be on telemetry, should be on observation, and we will see what is going on. She is a 52-year-old female, , I know very well from multiple admissions for chronic abdominal pain, but at this time, she had elevated blood sugar, worsening left low back pain, and I found a new bradycardia on an EKG. PAST MEDICAL HISTORY: She has past medical history of cardiac disorders, hypertension, asthma, and bronchitis. She wears glasses. She has diabetes. She had colon cancer. She had pancreatic and colon cancer. She has bilateral knee arthritis. She fractured her right pinky toe. She uses a cane. She has gastroesophageal reflux. She had colon cancer with resection. She has urinary tract infections. She has section. She had a Whipple procedure for the colon cancer. FAMILY HISTORY: No known family history for diabetes. SOCIAL HISTORY: She still smokes cigarettes. No alcohol. No drugs. ALLERGIES: SHE IS ALLERGIC TO TYLENOL, CODEINE AND IODINE. MEDICATIONS: She takes Neurontin, metformin, and Janumet. REVIEW OF SYSTEMS: No acute vision or hearing changes. No sore throat. No neck pain. No chest pain or palpitations. No shortness of breath or cough. No fevers. She has some nauseousness. No real diarrhea or vomiting. Occasional abdominal pain. No problems urinating. She has left-sided back pain radiating down the leg new. No headache or dizziness. PHYSICAL EXAMINATION: VITAL SIGNS: She has 981. temperature, 46 pulse, 18 respiratory rate, 148/79 blood pressure, 96% O2 sat on room air. GENERAL: She is well appearing, nontoxic, comfortable, much better than usually other time she is here with severe abdominal pain. She is alert and oriented x3. Blood sugar was 268. HEENT: Head is atraumatic, normocephalic. Extraocular muscles are intact. Pupils are equal and reactive to light and accommodation. Throat is moist. NECK: Supple. Thyroid midline. No palpable appreciable lymphadenopathy. HEART: Regular rate. Normal S1, S2. LUNGS: Decreased breath sounds, but clear to auscultation bilaterally. No wheezes, no rhonchi, no rales. ABDOMEN: Soft, nontender. Positive bowel sounds. She has some left flank back pain. No guarding, rebound or CVA tenderness. EXTREMITIES: No edema. GCS is 15. Cranial nerves II-XII grossly intact. She is alert and oriented x3. SKIN: Warm and dry. No apparent rashes or ulcers appreciated. LABORATORY DATA: She had multiple tests done. EKG showed marked sinus bradycardia at 42, which is new when compared to old EKGs. She has 3.8 white count, 12.6 hemoglobin, 39.2 hematocrit with 181 platelets and INR is 0.96. She has 140 sodium, potassium 4, BUN is 14, creatinine 0.6, GFR is greater than 60. Sugar is 333 and 274. Calcium is 9.7, total bili is 0.6, AST is 14, ALT is 25, alk phos 98, lactate dehydrogenase is 336, total creatinine kinase is 66. Troponin I is less than 0.01, total protein 6.8, albumin is 4. She will be on observation level of care. She will have a lumbar spine x-ray, which showed no acute fracture, mild degenerative spondylosis. Chest x-ray which showed minor bibasilar atelectasis, left greater than right. She will have a consult with Cardiology and Pulmonology. She will have labs tomorrow, insulin coverage, put back on the medication. She is here for observation level of care at this time. She will have some Toradol for pain if needed. Heart healthy diet and oxygen. Has had new onset bradycardia. Mayur Mcclendon DO JE
[2017-12-13 05:50] VITALS: RESP 20; O2SAT 97
[2017-12-13 06:21] LABS: HEMOGLOBIN 11.2 g/dL (12.0-16.0); MEAN CELL VOLUME 78.4 fl (80.0-105.0); MEAN CORPUSCULAR HEMOGLOBIN 25.5 pg (25.0-35.0); MEAN CORPUSCULAR HGB CONC 32.5 g/dl (31.0-37.0); MEAN PLATELET VOLUME 9.6 fl (7.0-11.0); RBC 4.4 10^6/uL (3.5-6.1); RED CELL DISTRIBUTION WIDTH 15.1 % (11.5-14.5); WHITE BLOOD COUNT 4.3 10^3/ul (4.5-11.0)
[2017-12-13 07:21] LABS: ALB/GLOB RATIO 1.4 (1.1-1.8); ALBUMIN 3.3 g/dL (3.0-4.8); ALT/SGPT 29 U/L (7-56); AST/SGOT 11 U/L (14-36); BLOOD UREA NITROGEN 12 mg/dL (7-21); CALCIUM 9.2 mg/dL (8.4-10.5); GFR AFRICAN-AMERICAN > 60; GFR NON-AFRICAN AMERICAN > 60
[2017-12-13] MEDS: Insulin Reg-HIGH-Coverage SC SCH ×3 (08:38→16:54)
--- NOTE | 2017-12-13 10:22 | RAD ---
PROCEDURE: Left Hip and pelvis X-ray Radiographs. HISTORY: pain COMPARISON: None. FINDINGS: BONES: Normal. No fracture. JOINTS: Normal. SOFT TISSUES: Normal. OTHER FINDINGS: None. IMPRESSION: Negative study
[2017-12-13] MEDS: Sodium Chloride 0.45% 1,000 ML IV SCH (11:20)
--- NOTE | 2017-12-13 13:40 | CON ---
DATE: 12/13/2017 PULMONARY CONSULTATION REASON FOR CONSULTATION: Abnormal chest x-ray. REFERRING PHYSICIAN: Dr. Mcclenodn. HISTORY OF PRESENTING ILLNESS: History is obtained via extensive discussion with the night nurse. I have also reviewed the chart at length and discussed the case with the patient at length. The patient is a chronically ill 52-year-old female, with past medical history significant for colon cancer, pancreatic cancer, status post Whipple procedure, hypertension, diabetes mellitus, who presents to [facility] with main complaint of severe left lower back/hip pain. Patient does state that the pain radiates down her left leg. In the emergency room, the patient was also noted to be bradycardiac and with increased blood sugar. She was then admitted for additional evaluation. There is no history of shortness of breath at rest, dyspnea on exertion, cough, or sputum production. There is also no history of chest pain, coughing up of blood, or chest pain - made worse with deep respirations. There is no history of temperatures, chills or infectious exposure. There is no history of night sweats, weight loss or appetite change prior to the above events. No history of calf pains. No history of syncope or diaphoresis. No history of recent travel or trauma. REVIEW OF SYSTEMS: Patient does state to chronic abdominal pain. She also states to sporadic nausea and vomiting. No acute urinary problems. Rest of the review of systems is negative. ALLERGIES: ACETAMINOPHEN, CODEINE AND IODINE. SOCIAL HISTORY: Positive for tobacco and negative for alcohol. FAMILY HISTORY: No inheritable diseases. HOME MEDICATIONS: Include oxycodone, Neurontin and Janumet. PHYSICAL EXAMINATION: GENERAL: The patient appears comfortable this morning. She is not short of breath at rest. VITAL SIGNS: Temperature is 98.7, pulse 47, respirations 18, blood pressure 122/66. Oxygen saturation on room air is 97%. HEENT: Normocephalic and atraumatic. No JVD. CARDIOVASCULAR: Positive S1, S2. No S3 gallop. LUNGS: Clear bilaterally. EXTREMITIES: Mild edema. No cyanosis, no clubbing. Calves are nontender to palpation. GASTROINTESTINAL: Abdomen is soft, nontender and nondistended. Bowel sounds are positive. SKIN: No acute rash. NEUROLOGIC: Exam limited at the present time. PERTINENT LABORATORY DATA: Chest x-ray was done yesterday and reviewed. There is a very minimal area of atelectasis versus scar noted at the left base. I do not appreciate any significant abnormalities at the right base. Glucose 333. Rest of the metabolic profiles within normal limits. CBC: White count 4.3, hemoglobin 11.2, hematocrit 34.5, platelets of 212,000. IMPRESSION: 1. Severe left hip pain. 2. Bradycardia. 3. Minimal scar versus minimal atelectasis at the left base. 4. Mild anemia. 5. Diabetes mellitus. PLAN: Again, I did discuss the case with the night nurse at length. I have also reviewed the chart at length and discussed case with the patient at length. The patient presents to [facility] with main complaint of severe left lower back/hip pain. She also stated that the pain radiates down her left leg. In the emergency room, the patient was also noted to be bradycardic and with elevated blood sugar. She was thus admitted for additional evaluation. I did review the chest x-ray as above. There is a very small area of scar versus atelectasis noted at the left base. This abnormality was present on multiple previous films. The patient has been placed on a spirometer. At this point in time, patient offers no pulmonary symptoms. Her lungs are clear on physical exam. Oxygen saturation on room air is 97%. I would simply continue with the spirometer for now. The patient remains mildly bradycardic this morning. Consultation with Dr. Jose (Cardiology) has been ordered. The patient does feel better and is clinically improved this morning - compared to the past few days. Additional pulmonary intervention will be based on the clinical status of the patient. I will discuss the above with Dr. Mcclendon. Thank you very much for this pulmonary consultation. Prasanna Blanc MD MTDD
[2017-12-13 13:54] VITALS: BP 117/76; PULSE 64; TEMP 98.3
--- NOTE | 2017-12-13 23:25 | CON ---
DATE: 12/13/2017 CARDIOLOGY CONSULTATION HISTORY OF PRESENT ILLNESS: The patient is a 52-year-old woman who I was asked to see because of resting sinus bradycardia. The patient's past medical history includes a history of colon CA as well as pancreatic CA. She is status post Whipple procedure. Her cardiac risk factors include hypertension and diabetes mellitus. She is chronically dizzy; however, in her evaluation, there are no orthostatic changes. SOCIAL HISTORY: The patient does smoke, but does not drink. REVIEW OF SYSTEMS: Fourteen-point review of systems is reviewed. No cardiac symptomatology is noted. She suffers from diabetes mellitus. PHYSICAL EXAMINATION: VITAL SIGNS: Blood pressure is 117/76. No orthostatic changes. Resting heart rate is in the 60s. On exertion, heart rate goes up to the 90s. NECK: Negative JVD. LUNGS: Without rales. HEART: With S1 and S2. EXTREMITIES: Without edema. EKG shows sinus bradycardia without acute changes. LABORATORY DATA: Hemoglobin is 11.2. Chemistries: Glucose 379. BUN and creatinine unremarkable. IMPRESSION: 1. Asymptomatic resting sinus bradycardia with good increase in heart rate during exertion. 2. Diabetes mellitus. 3. Hypertension. 4. History of pancreatic cancer and status post Whipple procedure. 5. History of colon cancer. PLAN: Given these findings, there is no further intervention necessary in sinus bradycardia. We will discontinue telemetry. From a cardiac perspective, the patient can be discharged. Brenton Jose MD
--- NOTE | 2017-12-14 06:45 | DS ---
SUBJECTIVE: She slept pretty well last night. She had one dose of pain medication. She is on IV fluids, Glucophage, insulin coverage, Januvia, Neurontin. She had one dose of OxyContin last night per the hospitalist. She is on Toradol, Ultram, and Zofran. She has no chest pain, no palpitations, no shortness of breath. PHYSICAL EXAMINATION VITAL SIGNS: Temperature 98.7, all the pulses have been 48 or 47. She has 122/66 blood pressure, 20 respiratory rate, 97% O2 saturation on room air. HEENT: Head: Atraumatic, normocephalic. HEART: Regular rate, but cheikh. LUNGS: Decreased breath sounds, but clear. ABDOMEN: Soft. EXTREMITIES: No edema. She is sitting up in bed, playing a video game. No acute pain at this time. She wants to go home. LABORATORY DATA: She has 4.3 white count, 11.2 hemoglobin, 34.5 hematocrit with 212,000 platelets. She has 140 sodium, potassium is 4, BUN 14, creatinine 0.6. GFR is greater than 60, sugar is 233, calcium 9.7. AST 14, ALT 25, alkaline phosphatase 90, total protein is 6.8. Troponin I less than 0.01. Albumin is 4. ASSESSMENT AND PLAN: She has a consult for Cardiology to evaluate her bradycardia, also consult for Pulmonology about her atelectasis. Hopefully, we can discharge her today for outpatient followup. The pain in the hip, which is why she came in to, is much better and we could hopefully follow up on the bradycardia as an outpatient. I will talk to the ticket writer and the shells inspector, but we might make her an inpatient if they want to do a pacemaker. Mayur Mcclendon DO
== END 2017-12-13 17:54 | disposition home or self-care (01) ==
LOC: ED 04:03 → ERH 06:45 → 2RNO 16:31
PROVIDERS: ADMIT Family Medicine; ATTEND Family Medicine
DX: R00.1 Bradycardia, unspecified (principal); J98.11 Atelectasis; I10 Essential (primary) hypertension; J45.909 Unspecified asthma, uncomplicated; E11.65 Type 2 diabetes mellitus with hyperglycemia; K21.9 Gastro-esophageal reflux disease without esophagitis; M47.896 Other spondylosis, lumbar region; F17.210 Nicotine dependence, cigarettes, uncomplicated; M54.40 Lumbago with sciatica, unspecified side; M17.0 Bilateral primary osteoarthritis of knee; Z79.84 Long term (current) use of oral hypoglycemic drugs; Z90.411 Acquired partial absence of pancreas; Z85.07 Personal history of malignant neoplasm of pancreas; Z85.038 Personal history of other malignant neoplasm of large intestine; Z87.440 Personal history of urinary (tract) infections
CPT/HCPCS: 36415; 71045; 72100; 73502; 80053; 82550; 82948; 83615; 84484; 85027; 85610; 85730; 93005; 96361; 96374; 96375; 96376; 97161; 97530; 99285; G0378; G8978; G8979; J1885; J2405; J7030

== ENCOUNTER 2017-12-29 07:19 | Emergency (ER) | payer BC, OTHER ==
[2017-12-29 07:23] VITALS: BMI 30.9
[2017-12-29 07:47] VITALS: TEMP 98.5
[2017-12-29] MEDS ORDERED: Sodium Chloride 0.9% 1,000 ML IV STA (07:49)
--- NOTE | 2017-12-29 07:49 | ED PDOC ---
Arrival/HPI - General Time Seen by Provider: 12/29/17 07:26 - History of Present Illness Narrative History of Present Illness (Text): 52 y/o F p/w cough x 2 weeks. Cough is productive of green sputum, associated with initial fever that is now resolved and bitemporal/L parietal headache that is associated with nausea and NBNB vomit x 1 yesterday and photophobia. States has never had headache like this before. Denies current fever, abdominal pain, chest pain, dyspnea, dysuria, hematuria, trauma, stiff neck, vision change. PMD Danelle Past Medical History - Past History Past History: Non-Contributing - Infectious Disease Hx of Infectious Diseases: None - Tetanus Immunization Tetanus Immunization: Unknown - Cardiac Hx Cardiac Disorders: Yes Hx Hypertension: Yes - Pulmonary Hx Respiratory Disorders: Yes Hx Asthma: Yes Hx Bronchitis: Yes Hx Chronic Obstructive Pulmonary Disease (COPD): No (denies) Hx Emphysema: No Hx Pneumonia: No Hx Respiratory Aspiration: No Hx Respiratory Tract Infection: No Hx Sleep Apnea: No Hx Tuberculosis: No - Neurological Hx Neurological Disorder: No Hx Alzheimer's Disease: No HX Cerebrovascular Accident: No Hx Dementia: No Hx Dizziness: No Hx Meningitis: No Hx Migraine: No Hx Parkinson's Disease: No Hx Seizures: No Hx Transient Ischemic Attacks (TIA): No - HEENT Hx HEENT Disorder: No (wears glasses) Hx Blind: No Hx Cataracts: No Hx Deafness: No Hx Difficulty Chewing: No Hx Epistaxis: No Hx Glaucoma: No Hx Macular Degeneration: No - Renal Hx Renal Disorder: No Hx Dialysis: No Hx Kidney Stones: No Hx Neurogenic Bladder: No Hx Pyelonephritis: No Hx Renal Cancer: No Hx Renal Failure: No - Endocrine/Metabolic Hx Diabetes Mellitus Type 1: Yes - Hematological/Oncological Hx Blood Disorders: Yes Hx AIDS: No Hx Anemia: No Hx Cancer: Yes (colon) Hx Chemotherapy: No Hx Cirrhosis: No Hx Hemophilia: No Hx Hepatitis A: No Hx Hepatitis B: No Hx Hepatitis C: No Hx Metastasis: No Hx Shingles: No Hx Sickle Cell Disease: No Hx Unexplained Bleeding: No Other/Comment: pancreatic and colon ca - Integumentary Hx Dermatological Disorder: No Hx Basal Cell Carcinoma: No Hx Eczema: No Hx Melanoma: No Hx Psoriasis: No Hx Squamous Cell Carcinoma: No - Musculoskeletal/Rheumatological Hx Arthritis: Yes - Gastrointestinal Hx Gastrointestinal Disorders: Yes Hx Colostomy: No Hx Crohn's Disease: No Hx Diverticulitis: No Hx Gall Bladder Disease: No Hx Gastroesophageal Reflux: Yes Hx Ileostomy: No Hx Liver Failure: No Hx Pancreatitis: No HX Swallowing Problems: No Other/Comment: colon ca with surgery - Genitourinary/Gynecological Hx Genitourinary Disorders: Yes Hx Hematuria: No Hx Incontinence: No Hx Sexually Transmitted Diseases: No Hx Urinary Tract Infection: Yes - Psychiatric Hx Psychophysiologic Disorder: No Hx Anxiety: No Hx Bipolar Disorder: No Hx Depression: No Hx Emotional Abuse: No Hx Hallucinations: No Hx Panic Disorder: No Hx Post Traumatic Stress Disorder: No Hx Psychosis: No Hx Physical Abuse: No Hx Schizophrenia: No Hx Sexual Abuse: No Hx Substance Use: No - Surgical History Hx Cardiac Catheterization: No Hx Section: Yes Hx Coronary Stent: No Other/Comment: CA Colon - whipple - Anesthesia Hx Anesthesia: Yes Hx Anesthesia Reactions: No Hx Malignant Hyperthermia: No - Suicidal Assessment Feels Threatened In Home Enviroment: No Family/Social History Family/Social History: No Known Family HX Smoking Status: Current Some Days Smoker Hx Alcohol Use: No Hx Substance Use: No Hx Substance Use Treatment: Yes Allergies/Home Meds Allergies/Adverse Reactions: Allergies acetaminophen [From Tylenol-Codeine] Allergy (Verified 12/29/17 07:47) RASH codeine Allergy (Verified 12/29/17 07:47) VOMITING iodine Allergy (Verified 12/29/17 07:47) RASH Home Medications: Home Meds Medication Instructions Recorded Confirmed Gabapentin [Neurontin] 100 mg PO BID 12/12/17 12/29/17 Oxycodone HCl [Oxycontin] 80 mg PO Q12 PRN 12/12/17 12/29/17 Sitagliptin Phos/Metformin HCl 1 tab PO BID 12/12/17 12/29/17 [Janumet 50-1,000 mg Tablet] Review of Systems - Physician Review All systems were reviewed & negative as marked: Yes - Review of Systems Respiratory: absent: SOB Cardiovascular: absent: Chest Pain Physical Exam - Physical Exam Narrative Physical Exam (Text): Gen: NAD Head: NC/AT Eyes: PERRL ENT: MMM. No pharyngeal erythema or exudates Neck: No rigidity Chest: No tenderness CV: Borderline tachycardia Lungs: CTA b/l Abd: Soft, NT Back: No CVA tenderness Extremities: No swelling or tenderness Skin: No rash Neuro: Alert, no focal deficit Vital Signs Temp Pulse Resp BP Pulse Ox 12/29/17 07:34 98.5 F 111 H 20 135/81 97 Medical Decision Making ED Course and Treatment: 12/29/17 09:12 MDM: Impression: 52 year old presents to the ED complaining of cough for 2 weeks. Plan: -- Tylenol -- Benadryl -- HumuLIN R -- Toradol -- Reglan -- Sodium Chloride -- Reassess and disposition Progress Notes: CT Head reviewed, shows: HEMORRHAGE: No intracranial hemorrhage. BRAIN: No mass effect or edema. No atrophy or chronic microvascular ischemic changes. VENTRICLES: Unremarkable. No hydrocephalus. CALVARIUM: Unremarkable. PARANASAL SINUSES: Unremarkable as visualized. No significant inflammatory changes. MASTOID AIR CELLS: Unremarkable as visualized. No inflammatory changes. OTHER FINDINGS: None. IMPRESSION: No acute intracranial abnormalities. No significant findings to account for the clinical presentation. No significant interval change compared to the prior examination(s). CXR reviewed, shows: 12/29/17 09:14 LUNGS: No active pulmonary disease. PLEURA: No significant pleural effusion identified. No pneumothorax apparent. CARDIOVASCULAR: Normal. OSSEOUS STRUCTURES: No significant abnormalities. VISUALIZED UPPER ABDOMEN: Normal. OTHER FINDINGS: None. IMPRESSION: No active disease. No significant interval change compared to the prior examination(s). Patient in no distress. HR normal. Glucose baseline, administered dose of insulin. Bicarb normal. States can follow up with PMD. Will discharge with instructions to continue pain medication, antibiotics, humidifier, and guafenesin. - Lab Interpretations Lab Results: 12/29/17 08:32 12/29/17 08:30 Lab Results 12/29/17 08:32: WBC 4.8, RBC 5.01, Hgb 12.8, Hct 39.4, MCV 78.6 L, MCH 25.5, MCHC 32.5, RDW 14.7 H, Plt Count 266, MPV 8.5, Gran % 51.8, Lymph % (Auto) 39.1 H, [place] % (Auto) 8.3 H, Eos % (Auto) 0.6 L, Baso % (Auto) 0.2, Gran # 2.49, Lymph # (Auto) 1.9, [place] # (Auto) 0.4, Eos # (Auto) 0.0, Baso # (Auto) 0.01 12/29/17 08:30: Sodium 131 L, Potassium 4.6, Chloride 91 L, Carbon Dioxide 27, Anion Gap 18, BUN 21, Creatinine 0.8, Est GFR ( Amer) > 60, Est GFR (Non- Af Amer) > 60, Random Glucose 467 H* D, Calcium 9.9, Total Bilirubin 0.4, AST 18 , ALT 19, Alkaline Phosphatase 116, Total Protein 7.4, Albumin 4.2, Globulin 3.2 , Albumin/Globulin Ratio 1.3, Lipase 96 - RAD Interpretation Radiology Orders: 12/29/17 07:49 CHEST TWO VIEWS (PA/LAT) [RAD] Stat 12/29/17 07:50 HEAD W/O CONTRAST [CT] Stat - Medication Orders Current Medication Orders: Discontinued Medications Acetaminophen (Tylenol 325mg Tab) 975 mg PO STAT STA Stop: 12/29/17 07:51 Last Admin: 12/29/17 08:06 Dose: 975 mg MAR Pain/Vitals Document 12/29/17 08:06 [facility] (Rec: 12/29/17 08:07 [id number]) Pain Reassessment Is This A Pain ReAssessment? No Diphenhydramine HCl (Benadryl) 50 mg IVP STAT STA Stop: 12/29/17 07:51 Last Admin: 12/29/17 08:09 Dose: 50 mg IVP Administration Document 12/29/17 08:09 [facility] (Rec: 12/29/17 08:09 [id number]) Charges for Administration # of IVP Administrations 1 Sodium Chloride (Sodium Chloride 0.9%) 1,000 mls @ 999 mls/hr IV .Q1H1M STA Stop: 12/29/17 08:49 Last Admin: 12/29/17 08:08 Dose: 999 mls/hr eMAR Start Stop Document 12/29/17 08:08 [facility] (Rec: 12/29/17 08:09 [id number]) Intravenous Solution Start Date 12/29/17 Start Time 08:08 End Date 12/29/17 End time 09:08 Total Infusion Time 60 Insulin Human Regular (Humulin R) 10 units SC STAT STA Stop: 12/29/17 09:07 Ketorolac Tromethamine (Toradol) 30 mg IVP STAT STA Stop: 12/29/17 07:50 Last Admin: 12/29/17 08:09 Dose: 30 mg MAR Pain Assessment Document 12/29/17 08:09 [facility] (Rec: 12/29/17 08:09 [facility] [id number]) Pain Reassessment Is this a pain reassessment? No IVP Administration Document 12/29/17 08:09 [facility] (Rec: 12/29/17 08:09 [id number]) Charges for Administration # of IVP Administrations 1 Metoclopramide HCl (Reglan) 10 mg IVP STAT STA Stop: 12/29/17 07:51 Last Admin: 12/29/17 08:09 Dose: 10 mg IVP Administration Document 12/29/17 08:09 [facility] (Rec: 12/29/17 08:09 [facility] [id number]) Charges for Administration # of IVP Administrations 1 Disposition/Present on Arrival - Present on Arrival Any Indicators Present on Arrival: Yes History of DVT/PE: No History of Uncontrolled Diabetes: Yes Urinary Catheter: No History Surgical Site Infection Following: None - Disposition Have Diagnosis and Disposition been Completed?: Yes Diagnosis: Cough, Headache Disposition: HOME/ ROUTINE Disposition Time: 09:29 Patient Plan: Discharge Patient Problems: Current Active Problems Problem Status Onset Cough Acute Headache Acute Condition: STABLE Discharge Instructions (ExitCare): Sinus Headache (DC) Prescriptions: Amoxicillin/Clavulanate [Augmentin 875 MG-125 MG] 1 tab PO BID #20 tab Guaifenesin [Mucinex] 1,200 mg PO Q12H #18 tab.er.12h Referrals: Mayur Mcclendon DO [Staff Provider] - Follow up with primary
[2017-12-29] MEDS ORDERED: DiphenhydrAMINE 50 mg/ml Inj IVP STA (07:50)
[2017-12-29 08:42] LABS: BASO # 0.01 K/mm3 (0.0-2.0); BASO % 0.2 % (0.0-3.0); EOS % 0.6 % (1.5-5.0); GRAN # 2.49 (1.4-6.5); GRAN % 51.8 % (50.0-68.0); HEMOGLOBIN 12.8 g/dL (12.0-16.0); LYMPH # 1.9 (1.2-3.4); LYMPH % 39.1 % (22.0-35.0); MEAN CELL VOLUME 78.6 fl (80.0-105.0); MEAN CORPUSCULAR HEMOGLOBIN 25.5 pg (25.0-35.0); MEAN CORPUSCULAR HGB CONC 32.5 g/dl (31.0-37.0); MEAN PLATELET VOLUME 8.5 fl (7.0-11.0); MONO # 0.4 (0.1-0.6); MONO % 8.3 % (1.0-6.0); RBC 5.01 10^6/uL (3.5-6.1); RED CELL DISTRIBUTION WIDTH 14.7 % (11.5-14.5); WHITE BLOOD COUNT 4.8 10^3/ul (4.5-11.0)
[2017-12-29 09:05] LABS: ALB/GLOB RATIO 1.3 (1.1-1.8); ALBUMIN 4.2 g/dL (3.0-4.8); ALT/SGPT 19 U/L (7-56); AST/SGOT 18 U/L (14-36); BLOOD UREA NITROGEN 21 mg/dL (7-21); CALCIUM 9.9 mg/dL (8.4-10.5); GFR AFRICAN-AMERICAN > 60; GFR NON-AFRICAN AMERICAN > 60; LIPASE 96 U/L (23-300)
[2017-12-29] MEDS ORDERED: Insulin Regular 1 UNITS/0.01 ML ML SC STA (09:06)
--- NOTE | 2017-12-29 09:09 | CT ---
PROCEDURE: CT HEAD WITHOUT CONTRAST. HISTORY: headache COMPARISON: 01/12/2017 TECHNIQUE: Axial computed tomography images were obtained through the head/brain without intravenous contrast. Coronal and sagittal reconstructed images. Radiation dose: Total exam DLP = 832.84 mGy-cm. This CT exam was performed using one or more of the following dose reduction techniques: Automated exposure control, adjustment of the mA and/or kV according to patient size, and/or use of iterative reconstruction technique. FINDINGS: HEMORRHAGE: No intracranial hemorrhage. BRAIN: No mass effect or edema. No atrophy or chronic microvascular ischemic changes. VENTRICLES: Unremarkable. No hydrocephalus. CALVARIUM: Unremarkable. PARANASAL SINUSES: Unremarkable as visualized. No significant inflammatory changes. MASTOID AIR CELLS: Unremarkable as visualized. No inflammatory changes. OTHER FINDINGS: None. IMPRESSION: No acute intracranial abnormalities. No significant findings to account for the clinical presentation. No significant interval change compared to the prior examination(s).
--- NOTE | 2017-12-29 09:10 | RAD ---
HISTORY: cough COMPARISON: 12/12/2017. TECHNIQUE: Chest PA and lateral FINDINGS: LUNGS: No active pulmonary disease. PLEURA: No significant pleural effusion identified. No pneumothorax apparent. CARDIOVASCULAR: Normal. OSSEOUS STRUCTURES: No significant abnormalities. VISUALIZED UPPER ABDOMEN: Normal. OTHER FINDINGS: None. IMPRESSION: No active disease. No significant interval change compared to the prior examination(s).
[2017-12-29 10:17] VITALS: BP 130/82; PULSE 88; RESP 16; O2SAT 97
== END 2017-12-29 10:18 | disposition home or self-care (01) ==
LOC: ED 07:19
DX: R51 Headache (principal); R50.9 Fever, unspecified; I10 Essential (primary) hypertension
CPT/HCPCS: 70450; 71046; 80053; 82948; 83690; 85025; 96361; 96374; 96375; 99285; J1200; J1885; J2765; J7040

== ENCOUNTER 2018-01-09 12:39 | Observation (INO) | payer BC, OTHER ==
--- NOTE | 2018-01-09 14:25 | ED PDOC ---
Arrival/HPI - General Chief Complaint: Headache Time Seen by Provider: 01/09/18 14:12 Historian: Patient, EMS - History of Present Illness Narrative History of Present Illness (Text): 01/09/18 14:17 pt p/w + 2-3 days onset of atrumatic frontal headache, Left >> right; at most pain is 10/10; pt tried OTC medications without improvement; pt states left sided arm/body/leg numbness/tingling with pain in addition; pt states no fever/ sweats, ? 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 pt lives with family pt was seen few weeks ago for headaches and dx with sinusitis pt states + hx of headaches but infrequent pt is here for further eval pt's without other complaints PCP: Dr Stevie Sue/Obi Mcclendon pt is left hand dominate Time/Duration: < week (2-3 days) Symptom Onset: Sudden Symptom Course: Unchanged Quality: Tightness, Cramping Severity Level: 10, Severe Activities at Onset: Rest Context: Home Past Medical History - Provider Review Nursing Documentation Reviewed: Yes - Travel History Have you recently traveled outside [place] w/in the past 3 mons?: No - Past History Past History: Non-Contributing - Infectious Disease Hx of Infectious Diseases: None - Tetanus Immunization Tetanus Immunization: Unknown - Reproductive Menopause: Yes - Cardiac Hx Cardiac Disorders: Yes Hx Hypertension: Yes - Pulmonary Hx Respiratory Disorders: Yes Hx Asthma: Yes Hx Bronchitis: Yes Hx Chronic Obstructive Pulmonary Disease (COPD): No (denies) Hx Emphysema: No Hx Pneumonia: No Hx Respiratory Aspiration: No Hx Respiratory Tract Infection: No Hx Sleep Apnea: No Hx Tuberculosis: No - Neurological Hx Neurological Disorder: No Hx Alzheimer's Disease: No HX Cerebrovascular Accident: No Hx Dementia: No Hx Dizziness: No Hx Meningitis: No Hx Migraine: No Hx Parkinson's Disease: No Hx Seizures: No Hx Transient Ischemic Attacks (TIA): No - HEENT Hx HEENT Disorder: No (wears glasses) Hx Blind: No Hx Cataracts: No Hx Deafness: No Hx Difficulty Chewing: No Hx Epistaxis: No Hx Glaucoma: No Hx Macular Degeneration: No - Renal Hx Renal Disorder: No Hx Dialysis: No Hx Kidney Stones: No Hx Neurogenic Bladder: No Hx Pyelonephritis: No Hx Renal Cancer: No Hx Renal Failure: No - Endocrine/Metabolic Hx Diabetes Mellitus Type 1: Yes - Hematological/Oncological Hx Blood Disorders: Yes Hx AIDS: No Hx Anemia: No Hx Cancer: Yes (colon) Hx Chemotherapy: No Hx Cirrhosis: No Hx Hemophilia: No Hx Hepatitis A: No Hx Hepatitis B: No Hx Hepatitis C: No Hx Metastasis: No Hx Shingles: No Hx Sickle Cell Disease: No Hx Unexplained Bleeding: No Other/Comment: pancreatic and colon ca - Integumentary Hx Dermatological Disorder: No Hx Basal Cell Carcinoma: No Hx Eczema: No Hx Melanoma: No Hx Psoriasis: No Hx Squamous Cell Carcinoma: No - Musculoskeletal/Rheumatological Hx Arthritis: Yes - Gastrointestinal Hx Gastrointestinal Disorders: Yes Hx Colostomy: No Hx Crohn's Disease: No Hx Diverticulitis: No Hx Gall Bladder Disease: No Hx Gastroesophageal Reflux: Yes Hx Ileostomy: No Hx Liver Failure: No Hx Pancreatitis: No HX Swallowing Problems: No Other/Comment: colon ca with surgery - Genitourinary/Gynecological Hx Genitourinary Disorders: Yes Hx Hematuria: No Hx Incontinence: No Hx Sexually Transmitted Diseases: No Hx Urinary Tract Infection: Yes - Psychiatric Hx Psychophysiologic Disorder: No Hx Anxiety: No Hx Bipolar Disorder: No Hx Depression: No Hx Emotional Abuse: No Hx Hallucinations: No Hx Panic Disorder: No Hx Post Traumatic Stress Disorder: No Hx Psychosis: No Hx Physical Abuse: No Hx Schizophrenia: No Hx Sexual Abuse: No Hx Substance Use: No - Surgical History Hx Cardiac Catheterization: No Hx Section: Yes Hx Coronary Stent: No Other/Comment: CA Colon - whipple - Anesthesia Hx Anesthesia: Yes Hx Anesthesia Reactions: No Hx Malignant Hyperthermia: No - Suicidal Assessment Feels Threatened In Home Enviroment: No Family/Social History - Physician Review Nursing Documentation Reviewed: Yes Family/Social History: No Known Family HX Smoking Status: Current Some Days Smoker Hx Alcohol Use: No Hx Substance Use: No Hx Substance Use Treatment: Yes Allergies/Home Meds Allergies/Adverse Reactions: Allergies acetaminophen [From Tylenol-Codeine] Allergy (Verified 12/29/17 07:47) RASH codeine Allergy (Verified 12/29/17 07:47) VOMITING iodine Allergy (Verified 12/29/17 07:47) RASH Home Medications: Home Meds Medication Instructions Recorded Confirmed Gabapentin [Neurontin] 100 mg PO BID 12/12/17 12/29/17 Oxycodone HCl [Oxycontin] 80 mg PO Q12 PRN 12/12/17 12/29/17 Sitagliptin Phos/Metformin HCl 1 tab PO BID 12/12/17 12/29/17 [Janumet 50-1,000 mg Tablet] Review of Systems - Review of Systems Constitutional: Normal Eyes: Normal ENT: Normal Respiratory: Normal Cardiovascular: Normal Gastrointestinal: Nausea, Vomiting Genitourinary Female: Normal Musculoskeletal: Normal Skin: Normal Neurological: Headache, Dizziness, Focal Weakness, Other (left arm/leg numbness/ tingling) Endocrine: Normal Hemo/Lymphatic: Normal Physical Exam Vital Signs Reviewed: Yes Vital Signs Temp Pulse Resp BP Pulse Ox 01/09/18 18:34 60 18 146/76 98 01/09/18 14:40 61 18 140/79 99 01/09/18 13:20 98.8 F 01/09/18 12:40 62 18 138/79 99 Temperature: Afebrile Blood Pressure: Normal Pulse: Regular Respiratory Rate: Normal Appearance: Positive for: Well-Appearing, Uncomfortable, Other (uncomfortable, alert/awake, GCS = 15, oriented x 3, cooperative, follows command with ease, moderate distress due to pain) Pain Distress: Moderate Mental Status: Positive for: Alert and Oriented X 3 - Systems Exam Head: Present: Atraumatic, Normocephalic Pupils: Present: PERRL, Other (no photophobia, sclera anicteric, no nystagmus, visual field intact b/l) Extroacular Muscles: Present: EOMI Conjunctiva: Present: Normal Ears: Present: Normal Mouth: Present: Other (fair dentitions; mild dry oral mucosa; uvula/tongue are midline, no exudate/lesions; no drooling/dysphonia; poor dentitions) Pharnyx: Present: Normal Nose (External): Present: Atraumatic Nose (Internal): Present: Normal Inspection Neck: Present: Normal Range of Motion, Trachea Midline, Other (no meningeal signs, no midline tenderness, no step off). No: MIDLINE TENDERNESS Respiratory/Chest: Present: Clear to Auscultation, Good Air Exchange, Other ( CTA b/l, no w/r/r, no accessory muscle use noted, no tachypenia). No: Respiratory Distress, Accessory Muscle Use Cardiovascular: Present: Regular Rate and Rhythm, Normal S1, S2. No: Murmurs Abdomen: Present: Normal Bowel Sounds, Other (well nourished female, no focal tenderness, no mueller's sign, no mcburney's point tenderness, no masses/rebound/ guarding/rigidity). No: Tenderness Back: Present: Normal Inspection. No: CVA Tenderness, Midline Tenderness Upper Extremity: Present: Normal Inspection, Normal ROM, NORMAL PULSES, Neurovascularly Intact, Capillary Refill < 2s Lower Extremity: Present: Normal Inspection, NORMAL PULSES, Normal ROM, Neurovascularly Intact, Capillary Refill < 2 s, Other (strength 5-/5 b/l, neurovasc intact, intact ROM). No: CALF TENDERNESS Neurological: Present: GCS=15, CN II-XII Intact, Speech Normal, Other (NIH stroke scale ~ 0, CNII-XII WNL, no facial asymmetries noted) Skin: Present: Warm, Normal Color, Other (cap refill < 1sec, no ulcerations, no petechiae) Psychiatric: Present: Alert, Oriented x 3 Medical Decision Making ED Course and Treatment: 01/09/18 14:25 Impression: headache, left sided weakness/numbness/tingling i have consider all the differential diagnosis regarding pt's chief medical complaints/clinical findings, including but are not limited to: headache, left sided weakness/numbness/tingling A/P: left sided weakness, r/o tia vs cva vs abnl traore - labs - iv - xray - ct - ua - observe - supportive care 01/09/18 18:46 pt felt no improvement of her pain pt states her weakness is slightly improved pt is made aware of her medical results agrees with admission I spoke to Dr Obi Mcclendon, made aware, agrees with admission, would like to consult Dr Rao in the morning Re-evaluation Time: 18:15 Reassessment Condition: Improving,but remains with symptoms - Lab Interpretations Lab Results: 01/09/18 17:15 01/09/18 17:00 Lab Results 01/09/18 17:15: PT 11.6, INR 1.02, APTT 26.2 01/09/18 17:15: WBC 4.4 L, RBC 4.79, Hgb 12.4, Hct 37.0, MCV 77.2 L, MCH 25.9, MCHC 33.5, RDW 15.9 H, Plt Count 333, MPV 9.0, Gran % 35.3 L, Lymph % (Auto) 52.3 H, Thayer % (Auto) 11.5 H, Eos % (Auto) 0.7 L, Baso % (Auto) 0.2, Gran # 1.54 , Lymph # (Auto) 2.3, Thayer # (Auto) 0.5, Eos # (Auto) 0.0, Baso # (Auto) 0.01 01/09/18 17:00: pO2 54, VBG pH 7.39, VBG pCO2 48.0, VBG HCO3 29.1 H, VBG Total CO2 30.6 H, VBG O2 Sat (Calc) 86.2 H, VBG Base Excess 3.3 H, VBG Potassium 4.1, Sodium 140.0, Chloride 104.0, Glucose 226 H, Lactate 2.0, FiO2 21.0, Venous Blood Potassium 4.1 01/09/18 17:00: Sodium 139, Chloride 103, Potassium 4.1, Carbon Dioxide 24, Anion Gap 15, BUN 9, Creatinine 0.5 L, Est GFR ( Amer) > 60, Est GFR (Non -Af Amer) > 60, Random Glucose 213 H, Calcium 10.0, Phosphorus 4.0, Magnesium 1.5 L, Total Bilirubin 0.4, AST 19, ALT 28, Alkaline Phosphatase 93, Lactate Dehydrogenase 491, Total Creatine Kinase 44, Troponin I < 0.01, NT-Pro-B Natriuret Pep 547 H, Total Protein 7.0, Albumin 3.9, Globulin 3.1, Albumin/ Globulin Ratio 1.3 01/09/18 15:00: Urine Color Yellow, Urine Appearance Clear, Urine pH 6.5, Ur Specific [place] 1.010, Urine Protein Negative, Urine Glucose (UA) Negative, Urine Ketones Negative, Urine Blood Negative, Urine Nitrate Negative, Urine Bilirubin Negative, Urine Urobilinogen 0.2, Ur Leukocyte Esterase Small H, Urine RBC Negative, Urine WBC 2 - 5, Ur Epithelial Cells 3 - 4, Urine Bacteria Mod I have reviewed the lab results: Yes Interpretation: Abnormal lab values (elevated GLUC) - RAD Interpretation Narrative RAD Interpretations (Text): 01/09/18 16:48 PROCEDURE: CT HEAD WITHOUT CONTRAST. HISTORY: headache, left arm/leg weakness/numbness/tingling COMPARISON: Comparison is made with the previous study dated 12/29/2017 TECHNIQUE: Axial computed tomography images were obtained through the head/brain without intravenous contrast. Radiation dose: Total exam DLP = 894.1 mGy-cm. This CT exam was performed using one or more of the following dose reduction techniques: Automated exposure control, adjustment of the mA and/or kV according to patient size, and/or use of iterative reconstruction technique. FINDINGS: HEMORRHAGE: No intracranial hemorrhage. BRAIN: No mass effect or edema. No atrophy or chronic microvascular ischemic changes. VENTRICLES: Unremarkable. No hydrocephalus. CALVARIUM: Unremarkable. PARANASAL SINUSES: Unremarkable as visualized. No significant inflammatory changes. MASTOID AIR CELLS: Unremarkable as visualized. No inflammatory changes. OTHER FINDINGS: None. IMPRESSION: No evidence of acute intracranial hemorrhage intracranial collection territorial infarct mass effect or midline shift. No significant interval change noted since the previous exam. 01/09/18 18:47 CXR - faint atelectasis right lower lobe, no consolidations; no widened mediastinum/cardiomeagly Radiology Orders: 01/09/18 14:13 HEAD W/O CONTRAST [CT] Stat 01/09/18 14:14 CHEST PORTABLE [RAD] Stat Ballet Professor: Radiologist - EKG Interpretation EKG Interpretation (Text): 01/09/18 16:48 Sinus cheikh at 50 bpm, normal axis, no ectopy, poor baseline, non-specific st-t changes, ABNL EKG; unchanged compare with old ekg 11/2017 Interpreted by ED Physician: Yes Type: 12 lead EKG Comparison: Similar to previous EKG - Medication Orders Current Medication Orders: Discontinued Medications Aspirin (Aspirin) 325 mg PO STAT STA Stop: 01/09/18 14:17 Last Admin: 01/09/18 16:19 Dose: 325 mg Sodium Chloride (Sodium Chloride 0.9%) 500 mls @ 999 mls/hr IV .Q31M STA Stop: 01/09/18 17:16 Last Admin: 01/09/18 17:48 Dose: 999 mls/hr eMAR Start Stop Document 01/09/18 17:48 EWO (Rec: 01/09/18 17:48 [facility] [id number]) Intravenous Solution Start Date 01/09/18 Start Time 17:00 End Date 01/09/18 End time 17:30 Total Infusion Time 30 Ketorolac Tromethamine (Toradol) 30 mg IVP STAT STA Stop: 01/09/18 14:16 Last Admin: 01/09/18 16:19 Dose: 30 mg MAR Pain Assessment Document 01/09/18 16:19 EWO (Rec: 01/09/18 16:20 [facility] [id number]) Pain Reassessment Is this a pain reassessment? No Sleep Is patient sleeping during reassessment? No Presence of Pain Presence of Pain Yes Pain Scale Used Pain Scale Used Numeric Location Pain Location Body Method Consultant Description Description Intermittent Intensity of Pain at present 5 IVP Administration Document 01/09/18 16:19 EWO (Rec: 01/09/18 16:20 [facility] [id number]) Charges for Administration # of IVP Administrations 1 Metoclopramide HCl (Reglan) 10 mg IVP STAT STA Stop: 01/09/18 14:16 Last Admin: 01/09/18 16:19 Dose: 10 mg IVP Administration Document 01/09/18 16:19 EWO (Rec: 01/09/18 16:19 [facility] [id number]) Charges for Administration # of IVP Administrations 1 Disposition/Present on Arrival - Present on Arrival Any Indicators Present on Arrival: No History of DVT/PE: No History of Uncontrolled Diabetes: Yes Urinary Catheter: No History of Decub. Ulcer: No History Surgical Site Infection Following: None - Disposition Have Diagnosis and Disposition been Completed?: Yes Diagnosis: Left-sided weakness, Hyperglycemia, Headache, Numbness and tingling, Arm and leg pain Disposition: HOSPITALIZED Disposition Time: 18:49 Patient Plan: Admission Patient Problems: Current Active Problems Problem Status Onset Arm and leg pain Acute Headache Acute Hyperglycemia Acute Left-sided weakness Acute Numbness and tingling Acute Condition: STABLE Referrals: Ronnell Sue MD [Primary Care Provider] - Follow up with primary Forms: [employer] ([place]i)
[2018-01-09 15:18] LABS: PH,URINE 6.5 (4.7-8.0); URINE BILIRUBIN NEGATIVE (NEGATIVE); URINE BLOOD NEGATIVE (NEGATIVE); URINE GLUCOSE (UA) NEGATIVE (NEGATIVE); URINE LEUKOCYTE ESTERASE SMALL Leu/uL (NEGATIVE); URINE PROTEIN NEGATIVE mg/dL (<30 mg/dL); URINE UROBILINOGEN 0.2 E.U./dL (<1 E.U./dL)
[2018-01-09 15:20] LABS: URINE APPEARANCE CLEAR (CLEAR); URINE COLOR YELLOW (YELLOW)
[2018-01-09 15:30] LABS: URINE BACTERIA MOD (NEG); URINE RBC NEGATIVE /hpf (0-2)
--- NOTE | 2018-01-09 15:56 | CT ---
PROCEDURE: CT HEAD WITHOUT CONTRAST. HISTORY: headache, left arm/leg weakness/numbness/tingling COMPARISON: Comparison is made with the previous study dated 12/29/2017 TECHNIQUE: Axial computed tomography images were obtained through the head/brain without intravenous contrast. Radiation dose: Total exam DLP = 894.1 mGy-cm. This CT exam was performed using one or more of the following dose reduction techniques: Automated exposure control, adjustment of the mA and/or kV according to patient size, and/or use of iterative reconstruction technique. FINDINGS: HEMORRHAGE: No intracranial hemorrhage. BRAIN: No mass effect or edema. No atrophy or chronic microvascular ischemic changes. VENTRICLES: Unremarkable. No hydrocephalus. CALVARIUM: Unremarkable. PARANASAL SINUSES: Unremarkable as visualized. No significant inflammatory changes. MASTOID AIR CELLS: Unremarkable as visualized. No inflammatory changes. OTHER FINDINGS: None. IMPRESSION: No evidence of acute intracranial hemorrhage intracranial collection territorial infarct mass effect or midline shift. No significant interval change noted since the previous exam.
[2018-01-09] MEDS ORDERED: Sodium Chloride 0.9% 500 ML IV STA (16:46)
[2018-01-09 17:32] LABS: VENOUS BLOOD GAS BASE EXCESS 3.3 mmol/L (0.0-2.0); VENOUS BLOOD GAS PO2 54 mm/Hg (30-55); VENOUS BLOOD PH 7.39 (7.32-7.43)
[2018-01-09 17:34] LABS: ALB/GLOB RATIO 1.3 (1.1-1.8); ALBUMIN 3.9 g/dL (3.0-4.8); ALT/SGPT 28 U/L (7-56); AST/SGOT 19 U/L (14-36); BLOOD UREA NITROGEN 9 mg/dL (7-21); GFR AFRICAN-AMERICAN > 60; GFR NON-AFRICAN AMERICAN > 60
[2018-01-09 17:37] LABS: BASO # 0.01 K/mm3 (0.0-2.0); BASO % 0.2 % (0.0-3.0); EOS % 0.7 % (1.5-5.0); GRAN # 1.54 (1.4-6.5); GRAN % 35.3 % (50.0-68.0); HEMOGLOBIN 12.4 g/dL (12.0-16.0); LYMPH # 2.3 (1.2-3.4); LYMPH % 52.3 % (22.0-35.0); MEAN CELL VOLUME 77.2 fl (80.0-105.0); MEAN CORPUSCULAR HEMOGLOBIN 25.9 pg (25.0-35.0); MEAN CORPUSCULAR HGB CONC 33.5 g/dl (31.0-37.0); MONO # 0.5 (0.1-0.6); MONO % 11.5 % (1.0-6.0); RBC 4.79 10^6/uL (3.5-6.1); RED CELL DISTRIBUTION WIDTH 15.9 % (11.5-14.5); WHITE BLOOD COUNT 4.4 10^3/ul (4.5-11.0)
[2018-01-09 17:40] LABS: B-TYPE NATRIURETIC PEPTIDE 547 pg/mL (0-450); TROPONIN I < 0.01 ng/mL
[2018-01-09 17:44] LABS: INR 1.02 (0.93-1.08); PARTIAL THROMBOPLASTIN TIME 26.2 Seconds (25.1-36.5); PROTHROMBIN TIME 11.6 SECONDS (9.4-12.5)
[2018-01-09 22:34] LABS: VENOUS BLOOD GAS BASE EXCESS 2.3 mmol/L (0.0-2.0); VENOUS BLOOD GAS PO2 94 mm/Hg (30-55); VENOUS BLOOD PH 7.44 (7.32-7.43)
[2018-01-10] MEDS ORDERED: oxyCODONE 80 mg ER Tab (oxyCONTIN) PO PRN (00:18)
[2018-01-10 01:02] VITALS: RESP 20; BMI 30.6
[2018-01-10 09:02] LABS: BASO # 0.01 K/mm3 (0.0-2.0); BASO % 0.3 % (0.0-3.0); EOS % 0.6 % (1.5-5.0); GRAN # 1.31 (1.4-6.5); GRAN % 40.3 % (50.0-68.0); HEMOGLOBIN 12.9 g/dL (12.0-16.0); LYMPH # 1.6 (1.2-3.4); LYMPH % 50.2 % (22.0-35.0); MEAN CELL VOLUME 77.1 fl (80.0-105.0); MEAN CORPUSCULAR HEMOGLOBIN 25.5 pg (25.0-35.0); MEAN CORPUSCULAR HGB CONC 33.1 g/dl (31.0-37.0); MEAN PLATELET VOLUME 8.5 fl (7.0-11.0); MONO # 0.3 (0.1-0.6); MONO % 8.6 % (1.0-6.0); RBC 5.06 10^6/uL (3.5-6.1); RED CELL DISTRIBUTION WIDTH 15.9 % (11.5-14.5); WHITE BLOOD COUNT 3.3 10^3/ul (4.5-11.0)
[2018-01-10 09:11] LABS: ALB/GLOB RATIO 1.3 (1.1-1.8); ALBUMIN 4.4 g/dL (3.0-4.8); ALT/SGPT 26 U/L (7-56); AST/SGOT 16 U/L (14-36); BLOOD UREA NITROGEN 10 mg/dL (7-21); CALCIUM 10.2 mg/dL (8.4-10.5); GFR AFRICAN-AMERICAN > 60; GFR NON-AFRICAN AMERICAN > 60
--- NOTE | 2018-01-10 09:31 | RAD ---
HISTORY: left sided weakness COMPARISON: 12/29/2017 FINDINGS: LUNGS: No active pulmonary disease. PLEURA: No significant pleural effusion identified, no pneumothorax apparent. CARDIOVASCULAR: Normal. OSSEOUS STRUCTURES: No significant abnormalities. VISUALIZED UPPER ABDOMEN: Normal. OTHER FINDINGS: None. IMPRESSION: No active disease.
[2018-01-10] MEDS ORDERED: Non Formulary Medication (Sitagliptin Phos/Metformin Hcl [Janumet 50-1,000 Mg Tablet] 1 TA PO SCH (10:00)
--- NOTE | 2018-01-10 11:00 | CARD ---
APPROVED REPORT EKG Measurement Heart [id number] <Conclusion> Marked sinus bradycardia No change
--- NOTE | 2018-01-10 12:24 | MRI ---
PROCEDURE: MRI BRAIN WITHOUT CONTRAST HISTORY: left sided weakness COMPARISON: None. TECHNIQUE: Multiplanar, multisequence MR images of the brain were obtained without intravenous contrast enhancement. FINDINGS: HEMORRHAGE: None DWI: No evidence of an acute or early subacute infarction. BRAIN PARENCHYMA: No mass effect or edema. There is focal atrophy in the left posterior frontal lobe with minimal microvascular changes in the adjacent white matter. There are no acute intracranial findings VENTRICLES: Unremarkable. No hydrocephalus. CRANIUM: Unremarkable. ORBITS: Grossly unremarkable. PARANASAL SINUSES/MASTOIDS: Clear VASCULAR SYSTEM: Skull base flow voids intact. OTHER FINDINGS: None. IMPRESSION: No acute intracranial findings
--- NOTE | 2018-01-10 12:37 | RAD ---
PROCEDURE: Bilateral Knee Radiographs. HISTORY: pain COMPARISON: None. FINDINGS: BONES: Right Knee: Normal. No fracture. Left Knee: Normal. No fracture. There is some bony sclerosis in the proximal tibia and distal femur consistent with a bone infarct JOINTS: Right Knee: Normal. No osteoarthritis. Left knee: Normal. No osteoarthritis. SOFT TISSUES: Right Knee: Normal. Left Knee: Normal. JOINT EFFUSION: Right Knee: None. Left Knee: None. OTHER FINDINGS: None. IMPRESSION: No acute findings. 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
[2018-01-10 14:39] VITALS: BP 120/75; PULSE 77; TEMP 98.7; O2SAT 98
--- NOTE | 2018-01-10 18:20 | HP ---
HISTORY OF PRESENT ILLNESS: I know Marizol very well for multiple hospital stays. She is a 52-year-old -[place] Citizen female who presents with 2 to 3-day history of frontal headache, left greater than right. She tried [id number] medications, also left-sided arm, body, leg numbness and tingling with pain. She is fatigued easily, some weakness, little nauseous, and vomiting x2. No urinary issues. No lightheadedness. She is left-hand dominant and is having left-sided weakness and tingling. Lives with family. She had some headaches in the past week, sudden onset of tightness, the pain was at 10. PAST MEDICAL HISTORY: Menopause, hypertension, asthma, bronchitis. She wears glasses. She has diabetes. She had pancreas cancer and colon cancer in the past. She has arthritis, GERD. She had colon cancer surgery. She has had urinary tract infections. She had C-sections, Whipple procedure. FAMILY HISTORY: Hypertension and diabetes in the family. SOCIAL HISTORY: She is still smoking cigarettes. No alcohol. She has substance abuse treatment. ALLERGIES: SHE HAS ALLERGIES TO TYLENOL WITH CODEINE, CODEINE ALLERGY AND IODINE. MEDICATIONS: She is on Neurontin, OxyContin, and Janumet. REVIEW OF SYSTEMS: No vision or hearing changes. She has nausea and vomiting. She has left-sided numbness and tingling. She has headache, dizziness, focal weakness, left arm and left leg tingling. No problems urinating. Skin is intact. PHYSICAL EXAMINATION: VITAL SIGNS: She has 98.8 temperature, 60 pulse, 18 respiratory rate, 146/76 blood pressure, 98% O2 sat on room air. GENERAL: She is alert and oriented x3, cooperative, well appearing at this time, comfortable. HEENT: Head is atraumatic, normocephalic. Extraocular muscles are intact. Pupils equal and reactive to light. Throat is moist. NECK: Supple. HEART: Regular rate. Normal S1, S2. LUNGS: Decreased breath sounds, but clear to auscultation bilaterally. ABDOMEN: Soft, nontender. Positive bowel sounds. No guarding, no rebound or CVA tenderness. EXTREMITIES: No edema. She can move all four extremities equally at this time the, numbness and tingling in the past. SKIN: For the most part is intact. No apparent rashes or ulcers appreciated. NEUROLOGIC: GCS is 15. Cranial nerves II through XII grossly intact. LYMPHATICS: Thyroid midline. No palpable lymphadenopathy. She came in with headache, left-sided weakness, and numbness and tingling. LABORATORY AND IMAGING DATA: She had multiple tests done. CAT scan of the head that showed no evidence of acute intracranial hemorrhage, intracranial collection, territorial mass effect with presently a normal CT scan of the head. I ordered an MRI of the brain. The urine with moderate bacteria and given antibiotics for the urine. She has sodium 139, potassium is 4.1. BUN 9, creatinine 0.5. GFR is greater than 60. Sugar is 213. We will put her back on the medicines for diabetes. Calcium is 10, phosphorous 4, magnesium 1.5. Total bili is 0.4, AST is 19, ALT is 28, alk phos 93, lactate dehydrogenase is 491. Troponin I is less than 0.01. BNP is 547. Total protein is 7. TSH is 0.75. Lactate was 1.6. INR is 1.02. White count 4.4, hemoglobin 12.4, hematocrit 37, platelets of 333. ASSESSMENT AND PLAN: She has a consult with Ortho for the left knee pain, Cardiology for the hypertension, Neurology for the left-sided weakness. She will be on aspirin, metformin, Januvia, Neurontin and get a Norvasc, her basic OxyContin which she takes at home, Reglan, and tramadol for pain. Hopefully after the MRI is done and her other doctors say she is okay, I will be able to discharge her home later this afternoon. I will put her on some Macrodantin for the urinary tract infection and she is here for left-sided numbness, headache, and weakness. Mayur Mcclendon DO
--- NOTE | 2018-01-10 18:54 | CON ---
DATE: 01/10/2018 CARDIOLOGY CONSULTANTION HISTORY: The patient is a 52-year-old woman who presents with headaches, left shoulder pain, right wrist pain, and right shoulder pain. The patient has been on chronic oxycodone for a long time. Her cardiac risk factors include diabetes mellitus. She denies chest pain. SOCIAL HISTORY: The patient occasionally smokes. REVIEW OF SYSTEMS: Reviewed in detail. No angina, no dyspnea. Negative edema in the lower extremities. No other cardiac symptomatology noted. PHYSICAL EXAMINATION: VITAL SIGNS: Blood pressure 187/83, heart rate is 55, sinus rhythm. NECK: Negative JVD. LUNGS: Without rales. HEART: S1, S2. EXTREMITIES: Without edema. DIAGNOSTIC STUDIES: EKG shows no acute changes. Troponin's are negative x1. CT scan shows no acute changes. IMPRESSION: 1. Chronic diffuse body aches. 2. Prolonged oxycodone dependency. 3. Diabetes mellitus. 4. Hypertension. 5. No evidence for acute coronary syndrome. 6. Asymptomatic bradycardia. PLAN: Given these findings, I agree with adding Norvasc to her regimen. The patient is currently on lisinopril as well as Norvasc for hypertension and we will repeat a troponin today. Brenton Jose MD
--- NOTE | 2018-01-11 08:14 | CON ---
DATE: 01/10/2018 NEUROLOGY CONSULT CHIEF COMPLAINT: Headache followed by transient left side body numbness. HISTORY OF PRESENT ILLNESS: This is a 52-year-old woman with history of hypertension, history of asthma, history of diabetes type 1, history of pancreatic and colon cancer in the past, history of arthritis, history of colon cancer surgery who presented with diffuse frontal pressure headache of left side versus the right along with transient left side body numbness and some lightheadedness. Currently, she is doing much better. No longer any headache or no focal neurological deficits. MRI of the brain showed no acute intracranial abnormality, just chronic ischemic changes. She is doing much better right now and recommended that she take gabapentin 100 mg p.o. b.i.d. for neuropathic relief and p.r.n. tramadol for acute onset of pain. Her blood sugar is slightly elevated at 288 and she is slightly dehydrated. She had a slightly elevated blood pressures as well systolically. Currently now is much better. PAST MEDICAL HISTORY: Hypertension, type 2 diabetes mellitus, history of colon cancer, status post surgical intervention, history of pancreatic cancer. REVIEW OF SYSTEMS: A 14-point review of systems negative except as per in the HPI. ALLERGIES: TO ACETAMINOPHEN, CODEINE, IODINE. MEDICATIONS: Reviewed by nurse reconciliation sheet. SOCIAL HISTORY: No illicit drug use, smoking, or EtOH abuse. FAMILY HISTORY: Noncontributory. PHYSICAL EXAMINATION VITAL SIGNS: Temperature 98.7, pulse rate 77, blood pressure 120/75, respiratory rate of 20, oxygen saturation 98% by room air. GENERAL: The patient is sitting up in bed, in no acute distress. HEENT: Atraumatic, normocephalic. PERRLA. Extraocular muscles intact. NECK: Supple. No JVD. No adenopathy noted. LUNGS: Clear to auscultation. No adventitious sounds. HEART: S1, S2. Normal rate and rhythm. No murmurs, rubs, or gallops. ABDOMEN: Soft, nontender, and nondistended. Bowel sounds are present. EXTREMITIES: No clubbing. Peripheral pulses 2+ felt bilaterally. NEUROLOGIC: The patient is alert and oriented to person, place, month and year. Speech is fluent without any errors. Cranial nerves II through XII intact. Motor exam: Moves all extremities equally. No pronator drift seen. Sensory exam: Decreased light touch and pinprick up to the calves bilaterally. Decreased vibration of the toes. DTRs are 2+ throughout, 1 at both knees and ankles. Coordination: [id number] intact. No dysmetria noted. Gait is deferred for now. LABORATORY DATA: Sodium is 138, potassium 4, chloride 100, carbon dioxide of 26. BUN of 10, creatinine 0.6, random glucose of 288. ASSESSMENT: This is a 52-year-old woman with history of diabetes, history of hypertension, arthritis, history of colon and pancreatic cancer, status post surgical intervention, who presents with diffuse intermittent pressure headache especially frontally followed by paresthesias of the left side of the body, which was transient. Her MRI of the brain showed no acute intracranial abnormality. However, all constellation of symptom is likely secondary to underlying complicated migraine, which can cause this kind of scenario. RECOMMENDATIONS: At this time, recommend: 1. Aspirin 81 mg p.o. daily for stroke prevention. 2. Continue gabapentin 100 mg p.o. b.i.d. for diabetic neuropathy, which was diagnosed in neuro exam. 3. Keep blood sugars between 140 to 180. 4. Acute systolic blood pressure between 120s to 130s and diastolic 70s to 80s and low fat diabetic diet is required. At this time, she is clinically stable from my standpoint. Thank you for this consult. Silvio Rao MD
== END 2018-01-10 18:58 | disposition home or self-care (01) ==
LOC: ED 12:39 → ERH 18:33 → 3RNO 23:09
PROVIDERS: ADMIT Family Medicine; ATTEND Family Medicine
DX: G43.909 Migraine, unspecified, not intractable, without status migrainosus (principal); N39.0 Urinary tract infection, site not specified; E11.65 Type 2 diabetes mellitus with hyperglycemia; K21.9 Gastro-esophageal reflux disease without esophagitis; I10 Essential (primary) hypertension; R00.1 Bradycardia, unspecified; E11.40 Type 2 diabetes mellitus with diabetic neuropathy, unspecified; E86.0 Dehydration; R20.0 Anesthesia of skin; J45.909 Unspecified asthma, uncomplicated; F17.210 Nicotine dependence, cigarettes, uncomplicated; M19.90 Unspecified osteoarthritis, unspecified site; Z85.038 Personal history of other malignant neoplasm of large intestine; Z85.07 Personal history of malignant neoplasm of pancreas
CPT/HCPCS: 36415; 70450; 70551; 71045; 73560; 80053; 81001; 82550; 82803; 83615; 83735; 83880; 83930; 84100; 84443; 84484; 85025; 85610; 85730; 87086; 93005; 96374; 96375; 99285; G0378; J1885; J2765; J7040

== ENCOUNTER 2018-01-13 17:22 | Emergency (ER) | payer BC, OTHER ==
[2018-01-13 17:22] VITALS: BMI 30.6
--- NOTE | 2018-01-13 18:04 | ED PDOC ---
Arrival/HPI - General Chief Complaint: Headache Time Seen by Provider: 01/13/18 17:35 Historian: Patient - History of Present Illness Narrative History of Present Illness (Text): 01/13/18 17:57 Patient is a 52 year old female whose past medical history includes DMII and HTN and was last admitted for hypertensive urgency 01/10/18, presents today for a severe, chronic bilateral headache for the past month. She describes an intense band of tightness across her forehead with the Left worse than the right. Pt states her last ED visit was for a headache but was treated for HTN; her medications modified and she was told that her headache should resolve with better management of her blood pressure. Patient currently takes Oxycontin 80mg BID along with Gabapentin but has no relief in pain with these meds. Denies nausea, vomiting, diarrhea, chest pain, shortness of breath, back pain, change in vision, or any other complaints at this time. PMD is Dr. Mcclendon. 01/13/18 18:10 Time/Duration: > month Symptom Onset: Gradual Symptom Course: Unchanged Quality: Aching, Throbbing Severity Level: Moderate Activities at Onset: Rest Context: Home Past Medical History - Provider Review Nursing Documentation Reviewed: Yes - Travel History Have you recently traveled outside [place] w/in the past 3 mons?: No - Past History Past History: Non-Contributing - Infectious Disease Hx of Infectious Diseases: None - Tetanus Immunization Tetanus Immunization: Unknown - Reproductive Menopause: Yes - Cardiac Hx Cardiac Disorders: Yes Hx Hypertension: Yes - Pulmonary Hx Respiratory Disorders: Yes Hx Asthma: Yes Hx Bronchitis: Yes Hx Chronic Obstructive Pulmonary Disease (COPD): Yes - Neurological Hx Neurological Disorder: Yes Hx Headaches: Yes - HEENT Hx HEENT Disorder: No - Renal Hx Renal Disorder: No - Endocrine/Metabolic Hx Endocrine Disorders: Yes Hx Diabetes Mellitus Type 1: Yes - Hematological/Oncological Hx Blood Disorders: Yes Hx Cancer: Yes (colon/ pancreatic) - Integumentary Hx Dermatological Disorder: No - Musculoskeletal/Rheumatological Hx Musculoskeletal Disorders: Yes Hx Arthritis: Yes Hx Back Pain: Yes Hx Falls: No Hx Unsteady Gait: Yes - Gastrointestinal Hx Gastrointestinal Disorders: Yes Hx Gastroesophageal Reflux: Yes - Genitourinary/Gynecological Hx Genitourinary Disorders: Yes Hx Urinary Tract Infection: Yes Other/Comment: Tube ligation - Psychiatric Hx Psychophysiologic Disorder: No Hx Substance Use: No - Surgical History Hx Tubal Ligation: Yes Other/Comment: CA Colon - whipple - Anesthesia Hx Anesthesia: Yes Hx Anesthesia Reactions: No Hx Malignant Hyperthermia: No - Suicidal Assessment Feels Threatened In Home Enviroment: No Family/Social History - Physician Review Nursing Documentation Reviewed: Yes Family/Social History: Unknown Family HX Smoking Status: Heavy Smoker > 10 Cigarettes Daily Hx Alcohol Use: No Hx Substance Use: No Hx Substance Use Treatment: Yes Allergies/Home Meds Allergies/Adverse Reactions: Allergies acetaminophen [From Tylenol-Codeine] Allergy (Verified 01/13/18 17:24) RASH codeine Allergy (Verified 01/13/18 17:24) VOMITING iodine Allergy (Verified 01/13/18 17:24) RASH Home Medications: Home Meds Medication Instructions Recorded Confirmed Gabapentin [Neurontin] 100 mg PO BID 12/12/17 01/13/18 Oxycodone HCl [Oxycontin] 80 mg PO Q12 PRN 12/12/17 01/13/18 Sitagliptin Phos/Metformin HCl 1 tab PO BID 12/12/17 01/13/18 [Janumet 50-1,000 mg Tablet] Review of Systems - Review of Systems Constitutional: Normal Eyes: Normal ENT: Normal Respiratory: Normal Cardiovascular: Normal Gastrointestinal: Normal Genitourinary Female: Normal Musculoskeletal: Normal Skin: Normal Neurological: Headache Endocrine: Normal Hemo/Lymphatic: Normal Psychiatric: Normal Physical Exam Vital Signs Reviewed: Yes Vital Signs Temp Pulse Resp BP Pulse Ox 01/13/18 21:54 91 H 18 132/82 01/13/18 18:47 98 F 90 19 132/87 99 01/13/18 17:26 97.7 F 90 17 134/90 98 Temperature: Afebrile Blood Pressure: Normal Pulse: Regular Respiratory Rate: Normal Appearance: Positive for: Well-Appearing, Non-Toxic, Comfortable Pain Distress: Moderate Mental Status: Positive for: Alert and Oriented X 3 - Systems Exam Head: Present: Atraumatic, Normocephalic, Tenderness (frontal, temporal and scalp down to nape of neck) Pupils: Present: Pinpoint Extroacular Muscles: Present: EOMI Conjunctiva: Present: Normal Mouth: Present: Moist Mucous Membranes Neck: Present: Normal Range of Motion Respiratory/Chest: Present: Clear to Auscultation, Good Air Exchange. No: Respiratory Distress, Accessory Muscle Use Cardiovascular: Present: Regular Rate and Rhythm, Normal S1, S2. No: Murmurs Abdomen: Present: Normal Bowel Sounds. No: Tenderness, Distention, Peritoneal Signs Rectal: Present: Occult Blood, Hemorrhoids, Normal Rectal Tone Back: Present: Normal Inspection Upper Extremity: Present: Normal Inspection. No: Cyanosis, Edema Lower Extremity: Present: Normal Inspection. No: Edema Neurological: Present: GCS=15, CN II-XII Intact, Speech Normal Skin: Present: Warm, Dry, Normal Color. No: Rashes Psychiatric: Present: Alert, Oriented x 3, Normal Insight, Normal Concentration Medical Decision Making ED Course and Treatment: 01/13/18 18:05 Impression Patient is a 52 year old female whose past medical history includes DMII and HTN and was last admitted for hypertensive urgency 01/10/18, presents today for a severe, chronic headache for the past month. PE reveals pinpoint pupils; scalp and frontal/temporal bilateral tenderness on palpation that refers down neck and shoulders; the rest of the exam is benign Pt is likely experiencing opioid-induced hyperalgesia as she takes Oxycontin 160mg/day along with other analgesics Plan Toradol 30mg IM assess and dipso Progress Note No change in pain s/p Toradol IM and now reports rectal bleeding, bright red in color, could not quantify amount; sees Dr. Mejia here at [facility] for GI issues has [facility] as [facility]; states she has had colon cancer in the past Pt worked up for GIB as per Dr. Joy and Dr. Mcclendon contacted to discuss Guaiac positive however no twin blood on rectal; pt reports chronic hemorrhoids No significant findings on labs and imaging; pt hemodynamically stable Dispo home as per Dr. Mcclendon and instructed to f/u at his office in the morning ; pt understood and agreed. VSS on discharge Reassessment Condition: Re-examined (Reports rectal bleeding just now; sees a [facility] specialist [facility] for this) - Lab Interpretations Lab Results: 01/13/18 20:18 01/13/18 20:18 Lab Results 01/13/18 20:18: Sodium 137, Potassium 3.6, Chloride 100, Carbon Dioxide 26, Anion Gap 14, BUN 8, Creatinine 0.5 L, Est GFR ( Amer) > 60, Est GFR (Non -Af Amer) > 60, Random Glucose 300 H, Calcium 9.5, Total Bilirubin 0.4, AST 11 L D, ALT 19, Alkaline Phosphatase 89, Lactate Dehydrogenase 327 L, Total Creatine Kinase 38, Troponin I < 0.01, Total Protein 7.1, Albumin 4.1, Globulin 3.0, Albumin/Globulin Ratio 1.4, Amylase 44, Lipase 53 01/13/18 20:18: PT 11.6, INR 1.02, APTT 26.5 01/13/18 20:18: WBC 3.8 L, RBC 4.59, Hgb 11.7 L, Hct 35.7 L, MCV 77.8 L, MCH 25.5, MCHC 32.8, RDW 15.9 H, Plt Count 281, MPV 8.8, Gran % 35.3 L, Lymph % ( Auto) 54.3 H, Fergus % (Auto) 8.2 H, Eos % (Auto) 1.9, Baso % (Auto) 0.3, Gran # 1.33 L, Lymph # (Auto) 2.0, Fergus # (Auto) 0.3, Eos # (Auto) 0.1, Baso # (Auto) 0.01 I have reviewed the lab results: Yes (Positive guaiac) - RAD Interpretation Radiology Orders: 01/13/18 19:21 CHEST PORTABLE [RAD] Stat - EKG Interpretation Interpreted by ED Physician: Yes (NSR) - Medication Orders Current Medication Orders: Discontinued Medications Ketorolac Tromethamine (Toradol) 30 mg IM STAT STA Stop: 01/13/18 17:56 Last Admin: 01/13/18 18:20 Dose: 30 mg MAR Pain Assessment Document 01/13/18 18:20 PARAG (Rec: 01/13/18 18:20 PARAG [email or web address]) Pain Reassessment Is this a pain reassessment? No Sleep Is patient sleeping during reassessment? No Presence of Pain Presence of Pain Yes Pain Scale Used Pain Scale Used Numeric Location Pain Location Body Transportation Specialist Description Description Intermittent Intensity of Pain at present 6 IM Administration Charges Document 01/13/18 18:20 PARAG (Rec: 01/13/18 18:20 PARAG [email or web address]) Charges for Administration # of IM Administrations 1 Disposition/Present on Arrival - Present on Arrival Any Indicators Present on Arrival: Yes History of DVT/PE: No History of Uncontrolled Diabetes: Yes Urinary Catheter: No History of Decub. Ulcer: No History Surgical Site Infection Following: None - Disposition Have Diagnosis and Disposition been Completed?: Yes Diagnosis: Headache, Rectal bleeding Disposition: HOME/ ROUTINE Disposition Time: 19:01 Patient Plan: Discharge Condition: GOOD Discharge Instructions (ExitCare): Tension Headache, Bloody Stools, Adult (DC) Additional Instructions: Dear Marizol, Please continue taking your blood pressure mediations daily along with your other prescribed medication. You may take acetaminophen for your headaches every 6 hours. Please follow up with Dr. Mcclendon if your headaches continue to be intense. If you experience alarming symptoms such as vomiting, fever and blurred vision, return to the ER immediately. All the best in your recovery, BUSTER Wheeler Prescriptions: Acetaminophen/Caffeine [[facility] Tension Headache Gelcap] 1 each PO Q6 #20 tablet Referrals: Giovanna Chambers MD [Primary Care Provider] - Follow up with primary Forms: [employer] (Czech)
[2018-01-13 18:48] VITALS: TEMP 98; O2SAT 99
[2018-01-13 20:31] LABS: BASO # 0.01 K/mm3 (0.0-2.0); BASO % 0.3 % (0.0-3.0); EOS # 0.1 (0.0-0.7); EOS % 1.9 % (1.5-5.0); GRAN # 1.33 (1.4-6.5); GRAN % 35.3 % (50.0-68.0); HEMOGLOBIN 11.7 g/dL (12.0-16.0); LYMPH % 54.3 % (22.0-35.0); MEAN CELL VOLUME 77.8 fl (80.0-105.0); MEAN CORPUSCULAR HEMOGLOBIN 25.5 pg (25.0-35.0); MEAN CORPUSCULAR HGB CONC 32.8 g/dl (31.0-37.0); MEAN PLATELET VOLUME 8.8 fl (7.0-11.0); MONO # 0.3 (0.1-0.6); MONO % 8.2 % (1.0-6.0); RBC 4.59 10^6/uL (3.5-6.1); RED CELL DISTRIBUTION WIDTH 15.9 % (11.5-14.5); WHITE BLOOD COUNT 3.8 10^3/ul (4.5-11.0)
[2018-01-13 20:42] LABS: INR 1.02 (0.93-1.08); PARTIAL THROMBOPLASTIN TIME 26.5 Seconds (25.1-36.5); PROTHROMBIN TIME 11.6 SECONDS (9.4-12.5)
[2018-01-13 20:45] LABS: ALB/GLOB RATIO 1.4 (1.1-1.8); ALBUMIN 4.1 g/dL (3.0-4.8); ALT/SGPT 19 U/L (7-56); AMYLASE 44 U/L (35-125); AST/SGOT 11 U/L (14-36); BLOOD UREA NITROGEN 8 mg/dL (7-21); CALCIUM 9.5 mg/dL (8.4-10.5); GFR AFRICAN-AMERICAN > 60; GFR NON-AFRICAN AMERICAN > 60; LIPASE 53 U/L (23-300)
[2018-01-13 20:53] LABS: TROPONIN I < 0.01 ng/mL
[2018-01-13 21:56] VITALS: BP 132/82; PULSE 91; RESP 18
--- NOTE | 2018-01-14 09:12 | RAD ---
HISTORY: bleed COMPARISON: 01/09/2018 FINDINGS: LUNGS: No active pulmonary disease. PLEURA: No significant pleural effusion identified, no pneumothorax apparent. CARDIOVASCULAR: Normal. OSSEOUS STRUCTURES: No significant abnormalities. VISUALIZED UPPER ABDOMEN: Normal. OTHER FINDINGS: None. IMPRESSION: No active disease.
--- NOTE | 2018-01-14 16:10 | CARD ---
APPROVED REPORT EKG Measurement Heart [id number] <Conclusion> Normal sinus rhythm Normal ECG
== END 2018-01-13 21:55 | disposition home or self-care (01) ==
LOC: ED 17:22
DX: R51 Headache (principal); K62.5 Hemorrhage of anus and rectum; I10 Essential (primary) hypertension; Z85.038 Personal history of other malignant neoplasm of large intestine; F17.210 Nicotine dependence, cigarettes, uncomplicated
CPT/HCPCS: 71045; 80053; 82150; 82550; 83615; 83690; 84484; 85025; 85610; 85730; 93005; 96372; 99285; J1885

== ENCOUNTER 2018-02-04 02:32 | Emergency (ER) | payer BC, OTHER ==
[2018-02-04 02:48] VITALS: BMI 47.2
[2018-02-04] MEDS ORDERED: HYDROmorphone 1 mg/ml ISec SC STA (03:30)
--- NOTE | 2018-02-04 04:20 | ED PDOC ---
Arrival/HPI - General Chief Complaint: Back Pain Time Seen by Provider: 02/04/18 03:19 Historian: Patient - History of Present Illness Narrative History of Present Illness (Text): 02/04/18 04:19 A 52 year old female, whose past medical history includes diabetes sciatica, chronic back pain, gastroparesis, on Oxycontin and Neurontin medications presents to the emergency department with complaint of lower back discomfort radiating down left leg also complains of left arm pain. Patient is able to ambulate without difficulty no history of trauma leg or arm weakness. The patient denies fevers, chills, headache, dizziness, chest pain, shortness of breath, dyspnea on exertion, cough, abdominal pain, nausea, vomiting, diarrhea, neck pain, urinary/bowel changes, or any other complaint. Time/Duration: Other (Today) Symptom Onset: Sudden Symptom Course: Unchanged Activities at Onset: Rest, Light Context: Home Past Medical History - Provider Review Nursing Documentation Reviewed: Yes - Past History Past History: Non-Contributing - Infectious Disease Hx of Infectious Diseases: None - Tetanus Immunization Tetanus Immunization: Unknown - Cardiac Hx Cardiac Disorders: Yes Hx Hypertension: Yes - Pulmonary Hx Respiratory Disorders: Yes Hx Asthma: Yes Hx Bronchitis: Yes Hx Chronic Obstructive Pulmonary Disease (COPD): Yes - Neurological Hx Neurological Disorder: No - HEENT Hx HEENT Disorder: No - Renal Hx Renal Disorder: No - Endocrine/Metabolic Hx Endocrine Disorders: Yes Hx Diabetes Mellitus Type 1: Yes - Hematological/Oncological Hx Blood Disorders: Yes Hx Cancer: Yes (colon/ pancreatic) - Integumentary Hx Dermatological Disorder: No - Musculoskeletal/Rheumatological Hx Musculoskeletal Disorders: Yes Hx Arthritis: Yes Hx Back Pain: Yes Hx Falls: No Hx Unsteady Gait: Yes - Gastrointestinal Hx Gastrointestinal Disorders: Yes Hx Gastroesophageal Reflux: Yes - Genitourinary/Gynecological Hx Genitourinary Disorders: Yes Hx Urinary Tract Infection: Yes Other/Comment: Tube ligation - Psychiatric Hx Psychophysiologic Disorder: No Hx Substance Use: No - Surgical History Hx Tubal Ligation: Yes Other/Comment: CA Colon - whipple - Anesthesia Hx Anesthesia: Yes Hx Anesthesia Reactions: No Hx Malignant Hyperthermia: No - Suicidal Assessment Feels Threatened In Home Enviroment: No Family/Social History - Physician Review Nursing Documentation Reviewed: Yes Family/Social History: No Known Family HX Smoking Status: Current Some Days Smoker Hx Alcohol Use: No Hx Substance Use: No Hx Substance Use Treatment: Yes Allergies/Home Meds Allergies/Adverse Reactions: Allergies acetaminophen [From Tylenol-Codeine] Allergy (Verified 01/13/18 17:24) RASH codeine Allergy (Verified 01/13/18 17:24) VOMITING iodine Allergy (Verified 01/13/18 17:24) RASH Home Medications: Home Meds Medication Instructions Recorded Confirmed Gabapentin [Neurontin] 100 mg PO BID 12/12/17 01/13/18 Oxycodone HCl [Oxycontin] 80 mg PO Q12 PRN 12/12/17 01/13/18 Sitagliptin Phos/Metformin HCl 1 tab PO BID 12/12/17 01/13/18 [Janumet 50-1,000 mg Tablet] Review of Systems - Physician Review All systems were reviewed & negative as marked: Yes - Review of Systems Constitutional: absent: Fevers, Night Sweats Respiratory: absent: SOB, Cough Cardiovascular: absent: Chest Pain, MORELOS Gastrointestinal: absent: Abdominal Pain, Stool Changes, Diarrhea, Nausea, Vomiting Genitourinary Female: absent: Urine Output Changes Musculoskeletal: Back Pain (Lower back discomfort), Other (left leg and left arm pain). absent: Neck Pain Neurological: absent: Headache, Dizziness Physical Exam Vital Signs Reviewed: Yes Vital Signs Temp Pulse Resp BP Pulse Ox 02/04/18 04:30 97.9 F 78 18 121/67 98 02/04/18 02:48 98.7 F 79 16 95 Temperature: Afebrile Blood Pressure: Normal Pulse: Regular Respiratory Rate: Normal Appearance: Positive for: Well-Appearing, Non-Toxic, Comfortable Pain Distress: None Mental Status: Positive for: Alert and Oriented X 3 - Systems Exam Head: Present: Atraumatic, Normocephalic Pupils: Present: PERRL Extroacular Muscles: Present: EOMI Conjunctiva: Present: Normal Mouth: Present: Moist Mucous Membranes Neck: Present: Normal Range of Motion Respiratory/Chest: Present: Clear to Auscultation, Good Air Exchange. No: Respiratory Distress, Accessory Muscle Use Cardiovascular: Present: Regular Rate and Rhythm, Normal S1, S2. No: Murmurs Abdomen: No: Tenderness, Distention, Peritoneal Signs Back: Present: Normal Inspection, Pain with Leg Raise (Some tenderness with left leg raise. Some tenderness over left sciatic notch. ), Other (No dorsal spinal tenderness. No costovertebral tenderness.) Upper Extremity: Present: Normal Inspection, Normal ROM (Full ROM X4), Neurovascularly Intact. No: Cyanosis, Edema Lower Extremity: Present: Normal Inspection, Normal ROM (Full ROM X4), Neurovascularly Intact. No: Edema Neurological: Present: GCS=15, CN II-XII Intact, Speech Normal Skin: Present: Warm, Dry, Normal Color. No: Rashes Psychiatric: Present: Alert, Oriented x 3, Normal Insight, Normal Concentration Medical Decision Making ED Course and Treatment: 02/04/18 04:27 Impression: A 52 year old female presents to the emergency department complaining of lower back discomfort, left leg and arm pain. Plan: -- LS Spine X-Ray -- Morphine and Toradol -- Reassess and disposition Progress Notes: 02/04/18 05:43: LS Spine X-Ray read and interpreted by me shows no acute process. 02/04/18 05:50: Patient with relief following treatment in the emergency department. Patient is requesting pain medication until she sees her PMD this week. - RAD Interpretation Radiology Orders: 02/04/18 04:23 LS SPINE AP/LAT [RAD] Stat - Medication Orders Current Medication Orders: Discontinued Medications Ketorolac Tromethamine (Toradol) 60 mg IM ONCE ONE Stop: 02/04/18 03:36 Last Admin: 02/04/18 03:56 Dose: 60 mg MAR Pain Assessment Document 02/04/18 03:56 IT (Rec: 02/04/18 03:56 IT [id number]) Pain Reassessment Is this a pain reassessment? No Sleep Is patient sleeping during reassessment? No Presence of Pain Presence of Pain Yes IM Administration Charges Document 02/04/18 03:56 IT (Rec: 02/04/18 03:56 IT [id number]) Injection Site MAR Injection Site Left Deltoid Charges for Administration # of IM Administrations 1 Morphine Sulfate (Morphine) 6 mg IM STAT STA Stop: 02/04/18 03:36 Last Admin: 02/04/18 03:56 Dose: 6 mg MAR Pain Assessment Document 02/04/18 03:56 IT (Rec: 02/04/18 03:56 IT [id number]) Pain Reassessment Is this a pain reassessment? No Sleep Is patient sleeping during reassessment? No Presence of Pain Presence of Pain Yes IM Administration Charges Document 02/04/18 03:56 IT (Rec: 02/04/18 03:56 IT [id number]) Injection Site MAR Injection Site Left Deltoid Charges for Administration # of IM Administrations 1 - Scribe Statement The provider has reviewed the documentation as recorded by the Scribe Aleksandra Santa Provider Scribe Attestation: All medical record entries made by the Scribe were at my direction and personally dictated by me. I have reviewed the chart and agree that the record accurately reflects my personal performance of the history, physical exam, medical decision making, and the department course for this patient. I have also personally directed, reviewed, and agree with the discharge instructions and disposition. Disposition/Present on Arrival - Present on Arrival Any Indicators Present on Arrival: No History of DVT/PE: No History of Uncontrolled Diabetes: Yes Urinary Catheter: No History of Decub. Ulcer: No History Surgical Site Infection Following: None - Disposition Have Diagnosis and Disposition been Completed?: Yes Diagnosis: Back pain, Sciatica Disposition: HOME/ ROUTINE Disposition Time: 05:45 Patient Plan: Discharge Patient Problems: Current Active Problems Problem Status Onset Back pain Acute Sciatica Acute Condition: GOOD Discharge Instructions (ExitCare): Sciatica (DC) Additional Instructions: Avoid any strenuous physical activity/rest/meds as prescribed/follow up with your doctor this week Prescriptions: Oxycodone HCl [Oxycontin] 10 mg PO Q6 PRN #16 tab.er.12h PRN Reason: Pain, Moderate (4-7) Referrals: Ronnell Sue MD [Primary Care Provider] - Follow up with primary Forms: [employer] (Khmer)
[2018-02-04 06:49] VITALS: BP 119/68; PULSE 72; RESP 17; TEMP 98.2; O2SAT 99
--- NOTE | 2018-02-04 13:01 | RAD ---
PROCEDURE: Radiographs of the Lumbar Spine. HISTORY: Lower back Pain. No history of recent/ related trauma provided COMPARISON: No prior. FINDINGS: BONES: Normal alignment. No listhesis. No fracture. DISC SPACES: Unremarkable. OTHER FINDINGS: None. IMPRESSION: Unremarkable radiographs of the lumbar spine.
== END 2018-02-04 06:49 | disposition home or self-care (01) ==
LOC: ED 02:32
DX: M54.40 Lumbago with sciatica, unspecified side (principal); I10 Essential (primary) hypertension; F17.200 Nicotine dependence, unspecified, uncomplicated; E11.9 Type 2 diabetes mellitus without complications
CPT/HCPCS: 72100; 96372; 99283; J1885; J2270

== ENCOUNTER 2018-03-10 19:09 | Observation (INO) | payer BC, OTHER ==
[2018-03-10 19:16] VITALS: BMI 30.6
[2018-03-10] MEDS ORDERED: Nitroglycerin 2% Ointment Foilpak UD TOP STA (19:35)
--- NOTE | 2018-03-10 19:55 | ED PDOC ---
Arrival/HPI - General Chief Complaint: Chest Pain Time Seen by Provider: 03/10/18 19:19 Historian: Patient - History of Present Illness Narrative History of Present Illness (Text): 03/10/18 19:54 A 52 year old female, whose past medical history includes diabetes, hypertension , asthma, COPD, pancreatic and colon cancer, presents to the emergency department complaining of intermittent chest discomfort for past couple days. Patient describes symptom as chest tightness. Patient denies any fever, chills, cough, shortness of breath, leg pain, or any other complaints at this time. Prior to arrival, patient was given Aspirin by ambulance. PMD: Dr. Ronnell Sue Past Medical History - Provider Review Nursing Documentation Reviewed: Yes - Past History Past History: Non-Contributing - Infectious Disease Hx of Infectious Diseases: None - Tetanus Immunization Tetanus Immunization: Unknown - Cardiac Hx Cardiac Disorders: Yes Hx Hypertension: Yes - Pulmonary Hx Respiratory Disorders: Yes Hx Asthma: Yes Hx Bronchitis: Yes Hx Chronic Obstructive Pulmonary Disease (COPD): Yes - Neurological Hx Neurological Disorder: No - HEENT Hx HEENT Disorder: No - Renal Hx Renal Disorder: No - Endocrine/Metabolic Hx Endocrine Disorders: Yes Hx Diabetes Mellitus Type 1: Yes - Hematological/Oncological Hx Blood Disorders: Yes Hx Cancer: Yes (colon/ pancreatic) - Integumentary Hx Dermatological Disorder: No - Musculoskeletal/Rheumatological Hx Musculoskeletal Disorders: Yes Hx Arthritis: Yes Hx Back Pain: Yes Hx Falls: No Hx Unsteady Gait: Yes - Gastrointestinal Hx Gastrointestinal Disorders: Yes Hx Gastroesophageal Reflux: Yes - Genitourinary/Gynecological Hx Genitourinary Disorders: Yes Hx Urinary Tract Infection: Yes Other/Comment: Tube ligation - Psychiatric Hx Psychophysiologic Disorder: No Hx Substance Use: No - Surgical History Hx Tubal Ligation: Yes Other/Comment: CA Colon - whipple - Anesthesia Hx Anesthesia: Yes Hx Anesthesia Reactions: No Hx Malignant Hyperthermia: No - Suicidal Assessment Feels Threatened In Home Enviroment: No Family/Social History - Physician Review Nursing Documentation Reviewed: Yes Family/Social History: No Known Family HX Smoking Status: Current Some Days Smoker Hx Alcohol Use: No Hx Substance Use: No Hx Substance Use Treatment: Yes Allergies/Home Meds Allergies/Adverse Reactions: Allergies acetaminophen [From Tylenol-Codeine] Allergy (Verified 03/10/18 19:16) RASH codeine Allergy (Verified 03/10/18 19:16) VOMITING iodine Allergy (Verified 03/10/18 19:16) RASH Home Medications: Home Meds Medication Instructions Recorded Confirmed Gabapentin [Neurontin] 100 mg PO BID 12/12/17 03/10/18 Oxycodone HCl [Oxycontin] 80 mg PO Q12 PRN 12/12/17 03/10/18 Insulin Glargine, Recombina 20 unit SQ BID 03/10/18 03/10/18 [Lantus] Insulin Human Regular-MED [HumuLIN 5 units SC TID 03/10/18 03/10/18 R MED] Review of Systems - Physician Review All systems were reviewed & negative as marked: Yes - Review of Systems Constitutional: absent: Fevers, Night Sweats Respiratory: absent: SOB, Cough Cardiovascular: Chest Pain (chest discomfort described as chest tightness according to patient) Musculoskeletal: absent: Other (no leg pain) Physical Exam Vital Signs Reviewed: Yes Vital Signs Temp Pulse Resp BP Pulse Ox 03/10/18 20:48 98.2 F 93 H 18 140/97 H 97 03/10/18 19:16 151/102 H Temperature: Afebrile Blood Pressure: Hypertensive Pulse: Regular Respiratory Rate: Normal Appearance: Positive for: Well-Appearing, Non-Toxic, Comfortable Pain Distress: None Mental Status: Positive for: Alert and Oriented X 3 - Systems Exam Pupils: Present: PERRL Extroacular Muscles: Present: EOMI Conjunctiva: Present: Normal Mouth: Present: Moist Mucous Membranes Neck: Present: Normal Range of Motion Respiratory/Chest: Present: Clear to Auscultation, Good Air Exchange. No: Respiratory Distress, Accessory Muscle Use Cardiovascular: Present: Regular Rate and Rhythm, Normal S1, S2. No: Murmurs Abdomen: No: Tenderness, Distention, Peritoneal Signs Back: Present: Normal Inspection Upper Extremity: Present: Normal Inspection. No: Cyanosis, Edema Lower Extremity: Present: Normal Inspection. No: Edema Neurological: Present: GCS=15, CN II-XII Intact, Speech Normal Skin: Present: Warm, Dry, Normal Color. No: Rashes Psychiatric: Present: Alert, Oriented x 3, Normal Insight, Normal Concentration Medical Decision Making ED Course and Treatment: 03/10/18 19:55 Impression: 52 year old female with chest discomfort. Physical exam is benign. Plan: -- EKG -- Chest X-ray -- Labs -- Reassess and disposition Prior Visits: Notes and results from previous visits were reviewed. Patient was last seen in the emergency department on 02/03/2018 for lower back discomfort. Patient was discharged home. Progress Notes: EKG: Ordered, reviewed, and independently interpreted the EKG. Rate : 91 BPM Rhythm : NSR Interpretation : Septal infarct and non-specific ST- and T- wave changes. Comparison : No previous EKG for comparison. 03/10/18 21:41 CXR Impression: As read by me, no acute process. 03/10/18 22:[address] Mcclendon who is aware and agrees with the plan. Accepts patient to his service and requests Dr. Nguyen for consult. Patient will be admitted to Telemetry observation. - Lab Interpretations Lab Results: 03/10/18 19:38 03/10/18 19:55 Lab Results 03/10/18 19:55: Sodium 136, Potassium 4.7, Chloride 97 L, Carbon Dioxide 23, Anion Gap 21 H, BUN 18, Creatinine 0.8, Est GFR ( Amer) > 60, Est GFR ( Non-Af Amer) > 60, Random Glucose 576 H* D, Calcium 10.3, Total Bilirubin 0.4, AST 21, ALT 31, Alkaline Phosphatase 115, Lactate Dehydrogenase 449, Total Creatine Kinase 22 L, Troponin I < 0.01, Total Protein 7.5, Albumin 4.6, Globulin 2.9, Albumin/Globulin Ratio 1.6 03/10/18 19:55: PT 11.2, INR 0.98, APTT 24.8 L 03/10/18 19:38: WBC 4.6 D, RBC 5.36, Hgb 13.6, Hct 40.3, MCV 75.2 L, MCH 25.4, MCHC 33.7, RDW 14.7 H, Plt Count 348, MPV 9.4 I have reviewed the lab results: Yes - RAD Interpretation Radiology Orders: 03/10/18 19:38 CHEST PORTABLE [RAD] Stat - EKG Interpretation Interpreted by ED Physician: Yes Type: 12 lead EKG - Medication Orders Current Medication Orders: Discontinued Medications Aspirin (Aspirin) 325 mg PO ONCE STA Stop: 03/10/18 19:36 Last Admin: 03/10/18 19:47 Dose: Insulin Human Regular (Humulin R) 12 units SC STAT STA Stop: 03/10/18 21:42 Last Admin: 03/10/18 21:53 Dose: 12 units Subcutaneous Administrations Document 03/10/18 21:53 CNR (Rec: 03/10/18 21:54 CNR [facility] [id number]) Injection Site MAR Injection Site Right Arm Charges for Administration # of Subcutaneous Administrations 1 Nitroglycerin (Nitro-Bid 2% Oint) 1 ea TOP ONCE STA Stop: 03/10/18 19:36 Last Admin: 03/10/18 19:49 Dose: 1 ea - Scribe Statement The provider has reviewed the documentation as recorded by the Patriciaibbelia Arevalo Provider Scribe Attestation: All medical record entries made by the Scribe were at my direction and personally dictated by me. I have reviewed the chart and agree that the record accurately reflects my personal performance of the history, physical exam, medical decision making, and the department course for this patient. I have also personally directed, reviewed, and agree with the discharge instructions and disposition. Disposition/Present on Arrival - Present on Arrival Any Indicators Present on Arrival: No History of DVT/PE: No History of Uncontrolled Diabetes: Yes Urinary Catheter: No History of Decub. Ulcer: No History Surgical Site Infection Following: None - Disposition Have Diagnosis and Disposition been Completed?: Yes Diagnosis: Chest pain Disposition: HOSPITALIZED Disposition Time: 22:11 Patient Plan: Observation Patient Problems: Current Active Problems Problem Status Onset Chest pain Acute Condition: STABLE Discharge Instructions (ExitCare): Chest Pain (ED) Referrals: Ronnell Sue MD [Primary Care Provider] - Follow up with primary Forms: [employer] (Surinamese)
[2018-03-10 19:56] LABS: HEMOGLOBIN 13.6 g/dL (12.0-16.0); MEAN CELL VOLUME 75.2 fl (80.0-105.0); MEAN CORPUSCULAR HEMOGLOBIN 25.4 pg (25.0-35.0); MEAN CORPUSCULAR HGB CONC 33.7 g/dl (31.0-37.0); MEAN PLATELET VOLUME 9.4 fl (7.0-11.0); RBC 5.36 10^6/uL (3.5-6.1); RED CELL DISTRIBUTION WIDTH 14.7 % (11.5-14.5); WHITE BLOOD COUNT 4.6 10^3/ul (4.5-11.0)
[2018-03-10 20:03] LABS: INR 0.98 (0.93-1.08); PARTIAL THROMBOPLASTIN TIME 24.8 Seconds (25.1-36.5); PROTHROMBIN TIME 11.2 SECONDS (9.4-12.5)
[2018-03-10 21:09] LABS: ALB/GLOB RATIO 1.6 (1.1-1.8); ALBUMIN 4.6 g/dL (3.0-4.8); ALT/SGPT 31 U/L (7-56); AST/SGOT 21 U/L (14-36); BLOOD UREA NITROGEN 18 mg/dL (7-21); CALCIUM 10.3 mg/dL (8.4-10.5); GFR AFRICAN-AMERICAN > 60; GFR NON-AFRICAN AMERICAN > 60
[2018-03-10 21:19] LABS: TROPONIN I < 0.01 ng/mL
[2018-03-10] MEDS ORDERED: Insulin Regular 1 UNITS/0.01 ML ML SC STA (21:41)
[2018-03-10 23:04] VITALS: O2SAT 96
[2018-03-10] MEDS ORDERED: Morphine 2 mg/ml ISec IVP STA (23:15)
[2018-03-11 03:05] VITALS: RESP 18
[2018-03-11 04:41] LABS: TROPONIN I < 0.01 ng/mL
[2018-03-11] MEDS: Insulin Reg-HIGH-Coverage SC SCH ×2 (08:06→12:02)
--- NOTE | 2018-03-11 09:14 | RAD ---
HISTORY: chest pain COMPARISON: 01/13/2018 FINDINGS: LUNGS: No active pulmonary disease. PLEURA: No significant pleural effusion identified, no pneumothorax apparent. CARDIOVASCULAR: Normal. OSSEOUS STRUCTURES: No significant abnormalities. VISUALIZED UPPER ABDOMEN: Normal. OTHER FINDINGS: None. IMPRESSION: No active disease.
[2018-03-11 09:18] LABS: HEMOGLOBIN 13.2 g/dL (12.0-16.0); MEAN CELL VOLUME 75.8 fl (80.0-105.0); MEAN CORPUSCULAR HEMOGLOBIN 24.8 pg (25.0-35.0); MEAN CORPUSCULAR HGB CONC 32.8 g/dl (31.0-37.0); MEAN PLATELET VOLUME 8.9 fl (7.0-11.0); RBC 5.32 10^6/uL (3.5-6.1); RED CELL DISTRIBUTION WIDTH 14.7 % (11.5-14.5); WHITE BLOOD COUNT 5.5 10^3/ul (4.5-11.0)
[2018-03-11 09:40] LABS: ALB/GLOB RATIO 1.6 (1.1-1.8); ALBUMIN 4.6 g/dL (3.0-4.8); ALT/SGPT 37 U/L (7-56); AST/SGOT 16 U/L (14-36); BLOOD UREA NITROGEN 19 mg/dL (7-21); CALCIUM 9.6 mg/dL (8.4-10.5); GFR AFRICAN-AMERICAN > 60; GFR NON-AFRICAN AMERICAN > 60
[2018-03-11 09:42] LABS: TROPONIN I < 0.01 ng/mL
[2018-03-11] MEDS ORDERED: Insulin Detemir 100 units/ml Vial (Levemir) SC SCH (10:00)
[2018-03-11] MEDS ORDERED: Sodium Chloride 0.9% 1,000 ML IV SCH (11:15)
[2018-03-11 11:32] VITALS: BP 148/94; PULSE 90; TEMP 98
--- NOTE | 2018-03-11 13:59 | CON ---
DATE: 03/11/2018 CARDIOLOGY CONSULTATION HISTORY OF PRESENT ILLNESS: The patient presents with chest pain as well as back pain. She is on chronic oxycodone at home. She suffers from diabetes and hypertension. The patient is pain free now and wants to go home. She underwent a stress test at [facility] 1 month ago and it was reported to be normal. PHYSICAL EXAMINATION: VITAL SIGNS: Blood pressure 138/78, heart rate in the 80s. HEENT: Negative JVD. LUNGS: Without rales. HEART: Reveals S1, S2. EXTREMITIES: Without edema. LABORATORY DATA: EKG shows no acute changes. Hemoglobin is 13.2. Troponin's are negative x3. The glucose is 559. IMPRESSION: 1. Resolution of chest pain. 2. No evidence for acute coronary syndrome. 3. Diabetes mellitus with elevated sugars. 4. History of normal stress test performed 1 month ago at [facility]. 5. Hypertension. Given these findings, there is no further cardiac workup necessary. From a cardiac perspective, the patient can be discharged. Brenton Jose MD
--- NOTE | 2018-03-11 16:52 | CARD ---
APPROVED REPORT EKG Measurement Heart [id number] ND [id number] <Conclusion> Normal sinus rhythm Possible Left atrial enlargement Septal infarct, age undetermined Abnormal ECG
--- NOTE | 2018-03-11 19:33 | HP ---
DATE OF EXAM: 03/11/2018 HISTORY OF PRESENT ILLNESS: I know Marizol very well from the office and multiple hospital admissions. She came in to the hospital. She is a 52-year-old female who I know very well. She comes in with chest tightness. It came on intermittently over the past few days. She came to the ER. PAST MEDICAL HISTORY: She has a past medical history of diabetes, hypertension, asthma, COPD. She has pancreatic and colon cancer. Abdominal pains. She comes in with this chest pain. She has hypertension history, arthritis, back pain history, gait dysfunction, gastroesophageal reflux. She has had a multiple urinary tract infections. She had tubal ligation, colon cancer, Whipple surgery. FAMILY HISTORY: None known. SOCIAL HISTORY: She still smokes cigarettes. No alcohol. No drugs. ALLERGIES: TO TYLENOL, CODEINE, AND IODINE. MEDICATIONS: She is currently on gabapentin and OxyContin from a pain management doctor, Lantus 20 units b.i.d., insulin 5 units t.i.d. REVIEW OF SYSTEMS: No acute vision or hearing changes. No sore throat. There is no shortness of breath or cough. There is chest pain, chest tightness, chest discomfort, chest pressure. No abdominal pain. No nausea, vomiting, constipation, diarrhea. No problems urinating. No leg pains. No skin issues. She is calm, not anxious. OBJECTIVE: VITAL SIGNS: She has 98.2 temperature, 93 pulse, 18 respiratory rate, 97% O2 sat, 151/102 blood pressure, blood pressure was quite high, given medications for that. GENERAL: She is comfortable right now. Alert and oriented x3. HEENT: Head atraumatic, normocephalic. Pupils equal and reactive to light. Extraocular muscles intact. Throat is moist. NECK: Supple. HEART: Regular rate. Normal S1, S2. LUNGS: Decreased breath sounds, but clear to auscultation bilaterally. No wheezes, rhonchi or rales. ABDOMEN: Soft, nontender. Positive bowel sounds. No guarding, rebound or CVA tenderness. EXTREMITIES: Have no edema. NEUROLOGIC: GCS is 15. Cranial nerves II-XII grossly intact. Alert and oriented x3. Thyroid midline. No palpable appreciable lymphadenopathy. SKIN: Warm and dry. No apparent rashes or ulcers. DATA: She had multiple tests done. White count 4.6, 13.6 hemoglobin, 40.3 hematocrit with 348 platelets. INR is 0.98. She has 136 sodium, potassium 4.7, BUN 80, creatinine 0.8. GFR is greater than 60. Blood sugar was 576, she was given insulin. Calcium 10.3, total bili is 0.4, AST is 21, ALT 31, alk phos 115. Lactate dehydrogenase is 282 this morning, total creatine kinase is 27. Two troponins were less than 0.01 and less than 0.01, total protein 7.5. She has a consult with Cardiology, Dr. Jose. Overall, I think she is doing quite well. She is here for chest pain, in observation status. We will check her troponins. Chest pain, tightness, diabetes, and elevated blood sugar. Mayur Mcclendon DO
--- NOTE | 2018-03-12 04:13 | DS ---
HISTORY OF PRESENT ILLNESS: She had a good night last night. She slept well. She is comfortable this morning. No chest pain, no shortness of breath, no abdominal pain. She is on her medications. She is hungry this morning. PHYSICAL EXAMINATION: VITAL SIGNS: She has a 97.4 temperature, pulse, 119/80 blood pressure, 97% O2 sat on room air. HEENT: Head is atraumatic, normocephalic. HEART: Regular rate. LUNGS: Clear to auscultation. ABDOMEN: Soft. EXTREMITIES: No edema. No more chest pain. No more chest tightness. The troponins are less than 0.01. Waiting for Dr. 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 I am hoping he could schedule an outpatient stress test. She will continue with the same medications that she came in on and I will see her in another week at home when she is out of the hospital. She is here for chest pain, elevated blood sugars. This is a discharge summary after Dr. Jose seeing her this morning. Mayur Mcclendon DO JE
== END 2018-03-11 18:32 | disposition home or self-care (01) ==
LOC: ED 19:09 → ERH 22:11 → 2RSO 03-11 02:32
PROVIDERS: ADMIT Family Medicine; ATTEND Family Medicine
DX: R07.89 Other chest pain (principal); I10 Essential (primary) hypertension; E10.9 Type 1 diabetes mellitus without complications; J44.9 Chronic obstructive pulmonary disease, unspecified; F17.210 Nicotine dependence, cigarettes, uncomplicated; K21.9 Gastro-esophageal reflux disease without esophagitis; M19.90 Unspecified osteoarthritis, unspecified site; R26.81 Unsteadiness on feet; M54.9 Dorsalgia, unspecified; Z87.440 Personal history of urinary (tract) infections; Z85.038 Personal history of other malignant neoplasm of large intestine; Z85.07 Personal history of malignant neoplasm of pancreas; Z79.4 Long term (current) use of insulin; Z98.51 Tubal ligation status
CPT/HCPCS: 36415; 71045; 80053; 82550; 82948; 83615; 84484; 85027; 85610; 85730; 93005; 96374; 99285; G0378; J2270; J7040

== ENCOUNTER 2018-04-05 18:39 | Observation (INO) | payer BC, OTHER ==
[2018-04-05 19:07] VITALS: BMI 29.9
--- NOTE | 2018-04-05 19:28 | ED PDOC ---
Arrival/HPI - General Chief Complaint: Chest Pain Time Seen by Provider: 04/05/18 19:14 Historian: Patient - History of Present Illness Narrative History of Present Illness (Text): 04/05/18 19:25 pt p/w + < 1 day onset of left sided chest pressure/pain (since last night) with pain also noted to her left face/left arm/leg; pt also felt weakness to her left arm/legs (but intermittent); + lightheadedness, + sob intermittently, worse with exertion; pt states pain is severe at times; pt states no fever/ chills/sweats, no palpitations, no abd pain, no n/v, no numbness/tingling, no urinary/bowel changes, no fall/trauma/sick contact, no travel; pt denied other complaints pt denied slurr speech, vision changes, no rashes/bleeding pt is here for further eval pt's without other complaints. PCP: Obi Mcclendon left hand dominate Time/Duration: 24 hours Symptom Onset: Sudden Symptom Course: Unchanged Quality: Pressure, Tightness Severity Level: Severe Activities at Onset: Rest Context: Home Past Medical History - Provider Review Nursing Documentation Reviewed: Yes - Travel History Have you recently traveled outside [place] w/in the past 3 mons?: No - Past History Past History: Non-Contributing - Infectious Disease Hx of Infectious Diseases: None - Tetanus Immunization Tetanus Immunization: Unknown - Reproductive Currently : Unknown - Cardiac Hx Cardiac Disorders: Yes Hx Hypertension: Yes - Pulmonary Hx Respiratory Disorders: Yes Hx Asthma: Yes Hx Bronchitis: Yes Hx Chronic Obstructive Pulmonary Disease (COPD): Yes - Neurological Hx Neurological Disorder: No - HEENT Hx HEENT Disorder: No - Renal Hx Renal Disorder: No - Endocrine/Metabolic Hx Endocrine Disorders: Yes Hx Diabetes Mellitus Type 1: Yes - Hematological/Oncological Hx Blood Disorders: Yes Hx Cancer: Yes (colon/ pancreatic) - Integumentary Hx Dermatological Disorder: No - Musculoskeletal/Rheumatological Hx Musculoskeletal Disorders: Yes Hx Arthritis: Yes Hx Back Pain: Yes Hx Falls: Yes Hx Unsteady Gait: Yes - Gastrointestinal Hx Gastrointestinal Disorders: Yes Hx Gastroesophageal Reflux: Yes - Genitourinary/Gynecological Hx Genitourinary Disorders: Yes Hx Urinary Tract Infection: Yes Other/Comment: Tube ligation - Psychiatric Hx Psychophysiologic Disorder: No Hx Substance Use: No (HX not now) Other/Comment: Hx substance abuse treatment - Surgical History Other/Comment: CA Colon - whipple - Anesthesia Hx Anesthesia: Yes Hx Anesthesia Reactions: No Hx Malignant Hyperthermia: No - Suicidal Assessment Feels Threatened In Home Enviroment: No Family/Social History - Physician Review Nursing Documentation Reviewed: Yes Family/Social History: No Known Family HX Smoking Status: Former Smoker Hx Alcohol Use: No Hx Substance Use: No (HX not now) Hx Substance Use Treatment: Yes Allergies/Home Meds Allergies/Adverse Reactions: Allergies acetaminophen [From Tylenol-Codeine] Allergy (Verified 03/10/18 19:16) RASH codeine Allergy (Verified 03/10/18 19:16) VOMITING iodine Allergy (Verified 03/10/18 19:16) RASH Home Medications: Home Meds Medication Instructions Recorded Confirmed Gabapentin [Neurontin] 100 mg PO BID 12/12/17 03/10/18 Oxycodone HCl [Oxycontin] 80 mg PO Q12 PRN 12/12/17 03/10/18 Insulin Glargine, Recombina 20 unit SQ BID 03/10/18 03/10/18 [Lantus] Insulin Human Regular-MED [HumuLIN 5 units SC TID 03/10/18 03/10/18 R MED] Review of Systems - Review of Systems Constitutional: Normal Eyes: Normal ENT: Normal Respiratory: SOB. absent: Cough, Sputum, Wheezing Cardiovascular: Chest Pain, MORELOS. absent: Orthopnea, Syncope Gastrointestinal: Normal Genitourinary Female: Normal Musculoskeletal: Normal Skin: Normal Neurological: Headache, Dizziness. absent: Focal Weakness, Speech Changes, Facial Droop Endocrine: Normal Hemo/Lymphatic: Normal Psychiatric: Normal Physical Exam - Physical Exam Narrative Physical Exam (Text): 04/05/18 19:25 General: alert/awake, GCS = 15, oriented x 3, resting in bed, uncomfortable, cooperative, interactive; NAD Head: NC/AT EYE: PERRLA, EOMI, sclera anicteric, no nystagmus, no photophobia; visual field intact b/l Facial: WNL Oral: uvula/tongue are midline, no exudate/lesions, no drooling/stridor, no dysphonia; poor dentitions; moist oral mucosa NECK: intact ROM, no midline tenderness, no nuchal rigidity, no meningeal signs ; no step off Chest: CTA b/l, no w/r/r; no tachypenia, no accessory muscle use noted + reproducible left sided chest pain; no rashes/lesions/crepitus; no gross deformities Cardiac: +S1, +S2, no m/r/r, no tachycardia Abdominal: +BS, soft/nd/nt, well nourished patient; no masses/rebound/guarding/ rigidity; no mueller's sign, no mcburney's point tenderness Extremities: intact ROM, strength 5-/5 grossly intact in all limbs, neurovasc intact b/l; + ambulatory; reflex +2/2 BACK: no step off, no midline tenderness, NO crepitus, no gross deformities noted; Intact ROM SKIN: cap refill < 1 sec, no ulcerations, no petechiae, no rashes NEURO: CNII-XII WNL, no facial asymmetries, no slurr speech, oriented x 3 NIH stroke scale ~ 0 Psych: normal insight, normal affect; follows command with ease Vital Signs Reviewed: Yes Vital Signs Temp Pulse Resp BP Pulse Ox 04/05/18 21:03 98.5 F 77 17 139/74 99 04/05/18 20:57 98.6 F 71 18 139/72 99 04/05/18 19:04 98.6 F 76 17 146/92 H 98 Temperature: Afebrile Blood Pressure: Hypertensive Pulse: Regular Respiratory Rate: Normal Appearance: Positive for: Well-Appearing, Non-Toxic, Uncomfortable. No: Ill- Appearing, Unkept Pain Distress: Mild Mental Status: Positive for: Alert and Oriented X 3 - Systems Exam Head: Present: Atraumatic, Normocephalic Medical Decision Making ED Course and Treatment: 04/05/18 19:25 Impression: left chest pain, left headache/arm/leg pain i have consider all the differential diagnosis regarding pt's chief medical complaints/clinical findings, including but are not limited to: acs eval, unlikely cva/tia A/P: left chest pain, left headache/arm/leg pain - acs eval - xray - ct - labs - supportive care - observe/reevaluation 04/05/18 20:06 Discussed case with who is made aware of patient's presentation. Will admit patient to observation to consult from cardiology. pt is currently resting in bed comfortably pt is not in any distress still complains of left face/arm/leg/chest region pain, but not as severe pt is awaiting her diagnostic results pt is made aware however that Dr Mcclendon will admit her to the hospital for cardiac evaluation 04/05/18 2100 pt is made aware of her medical results Re-evaluation Time: 20:30 Reassessment Condition: Improving,but remains with symptoms - Lab Interpretations Lab Results: 04/05/18 20:00 04/05/18 20:00 Lab Results 04/05/18 20:00: Sodium 139, Potassium 3.9, Chloride 103, Carbon Dioxide 26, Anion Gap 14, BUN 12, Creatinine 0.6 L, Est GFR ( Amer) > 60, Est GFR ( Non-Af Amer) > 60, Random Glucose 314 H* D, Calcium 9.5, Magnesium 1.6 L, Total Bilirubin 0.2, AST 18, ALT 31, Alkaline Phosphatase 111, Lactate Dehydrogenase 338, Total Creatine Kinase 61, Troponin I < 0.01, NT-Pro-B Natriuret Pep 45.8, Total Protein 7.0, Albumin 4.0, Globulin 2.9, Albumin/Globulin Ratio 1.4 04/05/18 20:00: PT 11.4, INR 1.00, APTT 26.1 04/05/18 20:00: WBC 5.3, RBC 4.54, Hgb 11.4 L, Hct 34.9 L, MCV 76.9 L, MCH 25.1 , MCHC 32.7, RDW 14.7 H, Plt Count 258, MPV 8.7, Gran % 45.9 L, Lymph % (Auto) 47.1 H, [place] % (Auto) 5.6, Eos % (Auto) 0.8 L, Baso % (Auto) 0.6, Gran # 2.45, Lymph # (Auto) 2.5, [place] # (Auto) 0.3, Eos # (Auto) 0.0, Baso # (Auto) 0.03 I have reviewed the lab results: Yes Interpretation: Abnormal lab values (elevated gluc) - RAD Interpretation Narrative RAD Interpretations (Text): 04/05/18 20:20 Portable chest x-ray shows no acute disease. Preliminary readings. 04/05/18 22:49 CT head: pending Radiology Orders: 04/05/18 19:22 CHEST PORTABLE [RAD] Stat 04/05/18 19:23 HEAD W/O CONTRAST [CT] Stat Motel Maid: ED Physician - EKG Interpretation EKG Interpretation (Text): 04/05/18 22:49 NSR at 75 bpm, normal axis, no ectopy, qs in leads III, no st-t changes, BORDERLINE EKG; unchanged compare with old ekg 02/2018 Interpreted by ED Physician: Yes Type: 12 lead EKG Comparison: Similar to previous EKG - Medication Orders Current Medication Orders: Amlodipine Besylate (Norvasc) 5 mg PO DAILY NADYA Gabapentin (Neurontin) 100 mg PO BID NADYA PRN Reason: Protocol Sodium Chloride (Sodium Chloride 0.9%) 1,000 mls @ 100 mls/hr IV .Q10H NADYA Last Admin: 04/05/18 20:20 Dose: 100 mls/hr eMAR Start Stop Document 04/05/18 20:20 HI (Rec: 04/05/18 20:20 HI [id number]) Intravenous Solution Start Date 04/05/18 Start Time 20:20 Insulin Human Regular (Humulin R Med) 5 units SC TID NADYA PRN Reason: Protocol Non-Formulary Medication (Insulin Glargine, Recombina [Lantus]) 20 unit SQ BID NADYA Tramadol HCl (Ultram) 50 mg PO Q8H PRN PRN Reason: Pain, moderate (4-7) Discontinued Medications Insulin Human Regular (Humulin R) 5 units SC STAT STA Stop: 04/05/18 22:29 Ketorolac Tromethamine (Toradol) 15 mg IVP STAT STA Stop: 04/05/18 19:24 Last Admin: 04/05/18 20:20 Dose: 15 mg MAR Pain Assessment Document 04/05/18 20:20 HI (Rec: 04/05/18 20:20 HI [id number]) Pain Reassessment Is this a pain reassessment? No IVP Administration Document 04/05/18 20:20 HI (Rec: 04/05/18 20:20 HI [id number]) Charges for Administration # of IVP Administrations 1 Nitroglycerin (Nitro-Bid 2% Oint) 1 ea TOP STAT STA Stop: 04/05/18 19:30 Last Admin: 04/05/18 20:20 Dose: 1 ea NIHSS Stroke Scale 3 - Date/Time Evaluation Performed Date Performed: 04/05/18 Time Performed: 19:26 When Was NIHSS Performed: Baseline - How Severe is the Stroke Level of Consciousness: 0=Alert LOC to Questions: 0=Both comments correct LOC to commands: 0=Obeys both correctly Best Gaze: 0=Normal Visual: 0=No visual loss Facial: 0=Normal Motor Arm - Left: 0=No drift Motor Arm - Right: 0=No drift Motor Leg - Left: 0=No drift Motor Leg - Right: 0=No drift Limb Ataxia: 0=Absent Sensory: 0=Normal Best Language: 0=No aphasia Dysarthia: 0=Normal articulation Extinction & Inattention (Neglect): 0=Normal, no object Score: 0 Severity Of Stroke: 0 = No Stroke - Scribe Statement The provider has reviewed the documentation as recorded by the Scribe Mayco Byrd Provider Scribe Attestation: All medical record entries made by the Scribe were at my direction and personally dictated by me. I have reviewed the chart and agree that the record accurately reflects my personal performance of the history, physical exam, medical decision making, and the department course for this patient. I have also personally directed, reviewed, and agree with the discharge instructions and disposition. Disposition/Present on Arrival - Present on Arrival Any Indicators Present on Arrival: No History of DVT/PE: No History of Uncontrolled Diabetes: No Urinary Catheter: No History of Decub. Ulcer: No History Surgical Site Infection Following: None - Disposition Have Diagnosis and Disposition been Completed?: Yes Diagnosis: Chest pain with low risk for cardiac etiology, Hyperglycemia, Left leg pain, Left arm pain, Left-sided headache Disposition: HOSPITALIZED Disposition Time: 20:30 Patient Plan: Admission, Observation, Telemetry Condition: STABLE
[2018-04-05] MEDS ORDERED: Nitroglycerin 2% Ointment Foilpak UD TOP STA (19:29)
[2018-04-05] MEDS ORDERED: Sodium Chloride 0.9% 1,000 ML IV SCH (19:30)
[2018-04-05 20:18] LABS: BASO # 0.03 K/mm3 (0.0-2.0); BASO % 0.6 % (0.0-3.0); EOS % 0.8 % (1.5-5.0); GRAN # 2.45 (1.4-6.5); GRAN % 45.9 % (50.0-68.0); HEMOGLOBIN 11.4 g/dL (12.0-16.0); LYMPH # 2.5 (1.2-3.4); LYMPH % 47.1 % (22.0-35.0); MEAN CELL VOLUME 76.9 fl (80.0-105.0); MEAN CORPUSCULAR HEMOGLOBIN 25.1 pg (25.0-35.0); MEAN CORPUSCULAR HGB CONC 32.7 g/dl (31.0-37.0); MEAN PLATELET VOLUME 8.7 fl (7.0-11.0); MONO # 0.3 (0.1-0.6); MONO % 5.6 % (1.0-6.0); RBC 4.54 10^6/uL (3.5-6.1); RED CELL DISTRIBUTION WIDTH 14.7 % (11.5-14.5); WHITE BLOOD COUNT 5.3 10^3/ul (4.5-11.0)
[2018-04-05 20:38] LABS: PARTIAL THROMBOPLASTIN TIME 26.1 Seconds (25.1-36.5); PROTHROMBIN TIME 11.4 SECONDS (9.4-12.5)
[2018-04-05 20:40] LABS: B-TYPE NATRIURETIC PEPTIDE 45.8 pg/mL (0-450); TROPONIN I < 0.01 ng/mL
[2018-04-05 20:44] LABS: ALB/GLOB RATIO 1.4 (1.1-1.8); ALT/SGPT 31 U/L (7-56); AST/SGOT 18 U/L (14-36); BLOOD UREA NITROGEN 12 mg/dL (7-21); CALCIUM 9.5 mg/dL (8.4-10.5); GFR AFRICAN-AMERICAN > 60; GFR NON-AFRICAN AMERICAN > 60
[2018-04-05 20:48] LABS: URINE BILIRUBIN NEGATIVE (NEGATIVE); URINE BLOOD NEGATIVE (NEGATIVE); URINE GLUCOSE (UA) >=1000 mg/dL (NEGATIVE); URINE LEUKOCYTE ESTERASE NEGATIVE Leu/uL (NEGATIVE); URINE PROTEIN NEGATIVE mg/dL (<30 mg/dL); URINE UROBILINOGEN 0.2 E.U./dL (<1 E.U./dL)
[2018-04-05 20:51] LABS: URINE APPEARANCE CLEAR (CLEAR); URINE COLOR YELLOW (YELLOW)
[2018-04-05 21:05] VITALS: O2SAT 99
[2018-04-05 21:20] VITALS: RESP 18
[2018-04-05] MEDS ORDERED: Insulin Regular 1 UNITS/0.01 ML ML SC STA (22:28)
--- NOTE | 2018-04-06 01:05 | HP ---
HISTORY OF PRESENT ILLNESS: I saw her in the emergency room at [facility] this evening. She comes in with chest pain for approximately less than a day. It is chest pressure with tightness on the left side. She also has weakness on the left side, it is intermittent, also lightheadedness and shortness of breath. Severe pain at times, she could not take it. She came to the emergency room. She is a 52-year-old -[place] female with left-sided chest pain, less than 24 hours, sort of sudden in onset. PAST MEDICAL HISTORY: Hypertension, asthma, bronchitis, COPD, diabetes, colon cancer, pancreatic cancer, arthritis, severe back pain, unsteady gait, gastroesophageal reflux history, history of tubal ligation. No more substance abuse. She went to treatment. Colon cancer, Whipple surgery in the past. FAMILY HISTORY: No known family history. SOCIAL HISTORY: Former smoker. No alcohol. No drugs at this time. ALLERGIES: TYLENOL, CODEINE ALLERGY, IODINE. MEDICATIONS: She takes Neurontin, OxyContin, Lantus and insulin. REVIEW OF SYSTEMS: She has no vision or hearing changes. There is shortness of breath. No cough. No wheeze. There is chest pain. There is dyspnea on exertion of the left side. No nausea, vomiting, constipation, diarrhea. Skin for the most part is okay. She tells me there is a headache and dizziness. No focal weakness, but the left side is weak from an old issue. No anxiety or depression. PHYSICAL EXAMINATION: VITAL SIGNS: 98.6 temp, 76 pulse, 17 respiratory rate, 146/92 blood pressure, 98% O2 sat on room air. GENERAL: She is well appearing, uncomfortable, ill, mildly distressed with left chest pain. Alert and oriented x3. HEENT: Head is atraumatic, normocephalic. Throat is moist. Extraocular muscles are intact. NECK: Supple. HEART: Regular rate. LUNGS: Decreased breath sounds, but clear to auscultation. ABDOMEN: Soft, nontender. Positive bowel sounds. EXTREMITIES: Have no edema. NEUROLOGIC: Cranial nerves II through XII grossly intact. GCS is 15. LYMPHATICS: Thyroid midline. A palpable appreciable lymphadenopathy. LABORATORY DATA: Awaiting for the labs to come back, the chest x-ray to come back. Should have troponins. IMPRESSION: She will have a consult with Dr. Jose. She will be put back on her medication with tramadol for pain. Heart-healthy diet. She will have oxygen. She will be on observation status. We will check her troponins overnight. They will call me when they get the results of the troponins tonight and we will put more orders in, but she is admitted for observation for chest pain at this moment. I will continue aggressive treatment and care on Marizol Parker. Mayur Mcclendon DO
[2018-04-06 04:41] LABS: HEMOGLOBIN 11.5 g/dL (12.0-16.0); MEAN CELL VOLUME 77.6 fl (80.0-105.0); MEAN CORPUSCULAR HEMOGLOBIN 24.7 pg (25.0-35.0); MEAN CORPUSCULAR HGB CONC 31.9 g/dl (31.0-37.0); MEAN PLATELET VOLUME 9.3 fl (7.0-11.0); RBC 4.65 10^6/uL (3.5-6.1); RED CELL DISTRIBUTION WIDTH 14.7 % (11.5-14.5); WHITE BLOOD COUNT 4.7 10^3/ul (4.5-11.0)
[2018-04-06 05:08] LABS: TROPONIN I < 0.01 ng/mL
[2018-04-06 05:16] LABS: ALB/GLOB RATIO 1.3 (1.1-1.8); ALT/SGPT 29 U/L (7-56); AST/SGOT 14 U/L (14-36); BLOOD UREA NITROGEN 14 mg/dL (7-21); CALCIUM 9.6 mg/dL (8.4-10.5); GFR AFRICAN-AMERICAN > 60; GFR NON-AFRICAN AMERICAN > 60
[2018-04-06 08:27] VITALS: TEMP 98.6
[2018-04-06] MEDS: Insulin Reg-MEDIUM-Coverage SC SCH ×2 (09:11→13:29)
[2018-04-06 09:15] VITALS: BP 150/90
--- NOTE | 2018-04-06 09:21 | CT ---
PROCEDURE: CT HEAD WITHOUT CONTRAST. HISTORY: left sided headache, left sided weakness? COMPARISON: None available. TECHNIQUE: Axial computed tomography images were obtained through the head/brain without intravenous contrast. Radiation dose: Total exam DLP = 834 mGy-cm. This CT exam was performed using one or more of the following dose reduction techniques: Automated exposure control, adjustment of the mA and/or kV according to patient size, and/or use of iterative reconstruction technique. FINDINGS: HEMORRHAGE: No intracranial hemorrhage. BRAIN: No mass effect or edema. No atrophy or chronic microvascular ischemic changes. VENTRICLES: Unremarkable. No hydrocephalus. CALVARIUM: Unremarkable. PARANASAL SINUSES: Unremarkable as visualized. No significant inflammatory changes. MASTOID AIR CELLS: Unremarkable as visualized. No inflammatory changes. OTHER FINDINGS: The report concurs with the preliminary [facility] report IMPRESSION: No acute intracranial findings
[2018-04-06] MEDS ORDERED: Insulin Detemir 100 units/ml Vial (Levemir) SC SCH (10:00)
--- NOTE | 2018-04-06 12:47 | RAD ---
HISTORY: chest pain COMPARISON: 03/10/2018 FINDINGS: LUNGS: Study oblique impeding optimal comparison. No dense consolidation. PLEURA: No significant pleural effusion identified, no pneumothorax apparent. CARDIOVASCULAR: Heart size borderline prominent. Central pulmonary vasculature appears slightly increased. OSSEOUS STRUCTURES: No significant abnormalities. VISUALIZED UPPER ABDOMEN: Normal. OTHER FINDINGS: None. IMPRESSION: Heart size borderline prominent. Central pulmonary vasculature appears slightly increased. Slight changes are possible compared the prior study.
--- NOTE | 2018-04-06 14:32 | CP.PCM.CON ---
History of Present Illness - History of Present Illness History of Present Illness: Podiatry Consult note for Dr. Barreto 52F with PMHx DM seen at bedside for healing right hallux wound. Patient states that the wound first started when she was wearing sandals that dug in to her skin early last week. Patient states that she has been covering the wound with a bandaid since first noticing it. She denies any pain to the area. Denies noticing any periwound erythema, drainage, malodor, or other clincal signs of infection. Denies any further pedal complaints at this time. Denies any recent N /V/F/C/CP/SOB/D/posterior calf pain when squeezed. Review of Systems - Review of Systems All systems: reviewed and no additional remarkable complaints except Review of Systems: as per HPI Past Patient History - Infectious Disease Hx of Infectious Diseases: None - Tetanus Immunizations Tetanus Immunization: Unknown - Past Social History Smoking Status: Former Smoker - CARDIAC Hx Cardiac Disorders: Yes Hx Hypertension: Yes - PULMONARY Hx Respiratory Disorders: Yes Hx Asthma: Yes Hx Bronchitis: Yes Hx Chronic Obstructive Pulmonary Disease (COPD): Yes - NEUROLOGICAL Hx Neurological Disorder: No - HEENT Hx HEENT Problems: No - RENAL Hx Chronic Kidney Disease: No - ENDOCRINE/METABOLIC Hx Endocrine Disorders: Yes Hx Diabetes Mellitus Type 1: Yes - HEMATOLOGICAL/ONCOLOGICAL Hx Blood Disorders: Yes Hx Cancer: Yes (colon/ pancreatic) - INTEGUMENTARY Hx Dermatological Problems: No - MUSCULOSKELETAL/RHEUMATOLOGICAL Hx Musculoskeletal Disorders: Yes Hx Arthritis: Yes Hx Back Pain: Yes Hx Falls: Yes Hx Unsteady Gait: Yes - GASTROINTESTINAL Hx Gastrointestinal Disorders: Yes Hx Gastroesophageal Reflux: Yes - GENITOURINARY/GYNECOLOGICAL Hx Genitourinary Disorders: Yes Hx Urinary Tract Infection: Yes Other/Comment: Tube ligation - PSYCHIATRIC Hx Psychophysiologic Disorder: No Hx Substance Use: No (HX not now) Other/Comment: Hx substance abuse treatment - SURGICAL HISTORY Other/Comment: CA Colon - whipple - ANESTHESIA Hx Anesthesia: Yes Hx Anesthesia Reactions: No Hx Malignant Hyperthermia: No Meds Allergies/Adverse Reactions: Allergies Allergy/AdvReac Type Severity Reaction Status Date / Time acetaminophen Allergy RASH Verified 03/10/18 19:16 [From Tylenol-Codeine] codeine Allergy VOMITING Verified 03/10/18 19:16 iodine Allergy RASH Verified 03/10/18 19:16 - Medications Medications: Current Medications Amlodipine Besylate (Norvasc) 5 mg PO DAILY [facility] Last Admin: 04/06/18 09:11 Dose: 5 mg Gabapentin (Neurontin) 100 mg PO BID [facility] PRN Reason: Protocol Last Admin: 04/06/18 09:10 Dose: 100 mg Sodium Chloride (Sodium Chloride 0.9%) 1,000 mls @ 100 mls/hr IV .Q10H [facility] Last Admin: 04/05/18 20:20 Dose: 100 mls/hr Insulin Detemir (Levemir) 20 unit SC BID [facility] Last Admin: 04/06/18 09:21 Dose: 20 units Insulin Human Regular (Humulin R Med) 5 units SC TID [facility] PRN Reason: Protocol Last Admin: 04/06/18 13:29 Dose: 5 units Tramadol HCl (Ultram) 50 mg PO Q8H PRN PRN Reason: Pain, moderate (4-7) Last Admin: 04/06/18 09:09 Dose: 50 mg Physical Exam - Constitutional Appears: Well, Non-toxic, No Acute Distress - Head Exam Head Exam: ATRAUMATIC, NORMOCEPHALIC - Extremities Exam Additional comments: RLE focused exam: Vasc: DP/PT pulses fully palpable 2/4 b/l. Skin temperature warm to warm from proximal to distal. CFT < 3 seconds to all digits b/l. No edema noted b/l Neuro: Epicritic and protective sensation grossly intact b/l Derm: 1 cm x 1 cm well healing, circular eschar noted to dorsomedial right hallux. No erythema, malodor, drainage or other clinical signs of infection noted. No other maceration, xerosis, abnormal pigmentations or abnormal growths noted b/l MSK: No POP to wound site. No other gross deformities noted. MMT 5/5 in all major muscle groups. ROM WNL at all major joints - Neurological Exam Neurological exam: Alert, Oriented x3 - Psychiatric Exam Psychiatric exam: Normal Affect, Normal Mood Results - Vital Signs Recent Vital Signs: Last Vital Signs Temp 98.6 F 04/06/18 06:00 Pulse 60 04/06/18 09:11 Resp 18 04/06/18 06:00 BP 150/90 04/06/18 09:11 Pulse Ox 99 04/06/18 06:00 - Labs Result Diagrams: 04/06/18 04:25 04/06/18 04:25 Labs: Laboratory Results - last 24 hr 04/05/18 04/05/18 04/06/18 20:44 21:39 04:25 WBC RBC Hgb Hct MCV MCH MCHC RDW Plt Count MPV Sodium 142 Potassium 3.9 Chloride 106 Carbon Dioxide 25 Anion Gap 15 BUN 14 Creatinine 0.7 Est GFR ( Amer) > 60 Est GFR (Non-Af Amer) > 60 POC Glucose (mg/dL) 324 H Random Glucose 287 H Calcium 9.6 Total Bilirubin 0.4 AST 14 D ALT 29 Alkaline Phosphatase 96 Troponin I < 0.01 Total Protein 7.0 Albumin 4.0 Globulin 3.0 Albumin/Globulin Ratio 1.3 Urine Color Yellow Urine Appearance Clear Urine pH 6.0 Ur Specific [place] 1.025 Urine Protein Negative Urine Glucose (UA) >=1000 Urine Ketones Negative Urine Blood Negative Urine Nitrate Negative Urine Bilirubin Negative Urine Urobilinogen 0.2 Ur Leukocyte Esterase Negative 04/06/18 04/06/18 04:25 07:18 WBC 4.7 RBC 4.65 Hgb 11.5 L Hct 36.1 MCV 77.6 L MCH 24.7 L MCHC 31.9 RDW 14.7 H Plt Count 294 MPV 9.3 Sodium Potassium Chloride Carbon Dioxide Anion Gap BUN Creatinine Est GFR ( Amer) Est GFR (Non-Af Amer) POC Glucose (mg/dL) 273 H Random Glucose Calcium Total Bilirubin AST ALT Alkaline Phosphatase Troponin I Total Protein Albumin Globulin Albumin/Globulin Ratio Urine Color Urine Appearance Urine pH Ur Specific [place] Urine Protein Urine Glucose (UA) Urine Ketones Urine Blood Urine Nitrate Urine Bilirubin Urine Urobilinogen Ur Leukocyte Esterase Assessment & Plan - Assessment and Plan (Free Text) Assessment: 52F seen for stable, healing wound of right hallux Plan: Patient seen and evaluated Afebrile, Absent leukocytosis Patient wound dressed with optifoam Patient instructed to clean wound every few days and replace with new optifoam until wound is healed Surgical shoe ordered for patient Patient instructed to wear surgical shoe until wound is healed Patient advised to no longer wear her sandals No plan for surgical intervention at this time Patient advised to follow up in wound care center with Dr. Barreto following discharge from hospital Podiatry will sign off at this time Thank you for consult, please re-consult in future as needed - Date & Time Date: 04/06/18 Time: 14:46
[2018-04-06 15:23] VITALS: PULSE 66
--- NOTE | 2018-04-06 17:07 | CARD ---
APPROVED REPORT EKG Measurement Heart [id number] <Conclusion> Normal sinus rhythm Normal ECG
--- NOTE | 2018-04-06 17:17 | CON ---
DATE: 04/06/2018 CARDIOLOGY CONSULTATION HISTORY: The patient is a 52-year-old woman, who presents with transient chest pain. She is currently ambulating throughout the nurse floors without symptoms. The patient has no previous cardiac history. She does suffer from hypertension and diabetes mellitus. She is an active smoker. She is on multiple medications including high doses of oxycodone for chronic pain. She is also on Neurontin all given in [facility]. SOCIAL HISTORY: She continues to smoke. REVIEW OF SYSTEMS: Fourteen-point review of systems is reviewed in detail. No cardiac symptomatology is noted. PHYSICAL EXAMINATION: VITAL SIGNS: Blood pressure is 150/90, heart rates in the 60s. NECK: Negative JVD. LUNGS: Without rales. HEART: Reveals S1, S2. EXTREMITIES: Without edema. EKG is unremarkable. LABORATORY DATA: Hemoglobin is 11.5. Chemistries: Troponins are negative x2, the glucose is 287. IMPRESSION: 1. Atypical chest pain. 2. No evidence for acute coronary syndrome. 3. Opiate addiction. 4. Diabetes mellitus. 5. Hypertension. 6. Chronic obstructive pulmonary disease. PLAN: Given these findings, there is no evidence for acute coronary syndrome. I have talked to the patient about her need to stop smoking. From a cardiac perspective, the patient can be discharged. She is currently asymptomatic with no chest pain. We will discharge her today and arrange for an outpatient stress test next week. Brenton Jose MD
--- NOTE | 2018-04-07 07:39 | DS ---
HISTORY OF PRESENT ILLNESS: She is resting comfortably in bed. No more chest pain. She is doing better. She slept fairly well. She does have a right first toe band aid on the foot with a dry ulcer. She got a blister from her shoe that she is wearing. We will get Podiatry in to take a look at that today. I am also waiting for cardiology to come in and see if we can clear her to go home since her troponins have been good. She comes in with chest pain, that has resolved. She slept well. She is eating well. PHYSICAL EXAMINATION: VITAL SIGNS: She has a 98.4 temperature, 70 pulse, 127/84 blood pressure, 18 respiratory rate, 99% O2 sat on room air. HEENT: Head is atraumatic, normocephalic. HEART: Regular rate. LUNGS: Decreased breath sounds, but clear. ABDOMEN: Soft, morbidly obese, nontender. Positive bowel sounds. No guarding. EXTREMITIES: No edema, but the right first toe has a blister. We will get Podiatry to look at it. MEDICATIONS: She is currently on insulin coverage, Neurontin, Norvasc, IV fluids, Ultram and regular insulin. LABORATORY DATA: She has a urine that is clear. She has a 4.7 white count, 11.5 hemoglobin, 36.1 hematocrit with 294 platelets. INR is 1. Sodium 142, potassium 3.9, BUN 14, creatinine 0.7, GFR is greater than 60. Last blood sugar is better at 287. Calcium is 9.6, total bili is 0.4, AST is 14, ALT is 29, alkaline phosphatase 96, troponin less than 0.01, less than 0.01, total protein is 7. ASSESSMENT AND PLAN: I will discuss this with Cardiology. If it is okay with him, we will try and discharge her. The CAT scan of the head and chest x-ray is still pending. Hoping to get those results today, and if we can, we will try and discharge her after lunch. The patient is here for chest pain in observation status. She is also a diabetic. Mayur Mcclendon DO [facility] # [id number]
== END 2018-04-06 15:54 | disposition home or self-care (01) ==
LOC: ED 18:39 → ERH 20:15 → 3RSO 21:27
PROVIDERS: ADMIT Family Medicine; ATTEND Family Medicine
DX: R07.89 Other chest pain (principal); J44.9 Chronic obstructive pulmonary disease, unspecified; I10 Essential (primary) hypertension; E11.9 Type 2 diabetes mellitus without complications; G89.29 Other chronic pain; F11.20 Opioid dependence, uncomplicated; K21.9 Gastro-esophageal reflux disease without esophagitis; F17.200 Nicotine dependence, unspecified, uncomplicated; Z85.038 Personal history of other malignant neoplasm of large intestine; Z85.07 Personal history of malignant neoplasm of pancreas; Z98.51 Tubal ligation status
CPT/HCPCS: 36415; 70450; 71045; 80053; 81003; 82550; 82948; 83615; 83735; 83880; 84484; 85025; 85027; 85610; 85730; 93005; 96374; 99285; G0378; J1885; J7030

== ENCOUNTER 2018-05-02 17:29 | Emergency (ER) | payer BC, OTHER ==
[2018-05-02 17:49] VITALS: TEMP 99.2; BMI 34.3
--- NOTE | 2018-05-02 18:41 | ED PDOC ---
Arrival/HPI - General Chief Complaint: Chest Pain Time Seen by Provider: 05/02/18 18:05 Historian: Patient - History of Present Illness Narrative History of Present Illness (Text): 05/02/18 18:35 52 year old female, with a past medical history of diabetes, hypertension, asthma, COPD, pancreatic and colon cancer, presents to the emergency department complaining of non-radiating chest pain for the past few days. Patient states generalized pain localized to the left chest wall. Patient describes symptom as chest pressure that does not change upon movement, but is exacerbated by touching the area. Patient denies any fever, chills, cough, shortness of breath , or any other complaints at this time. Time/Duration: < week (3 days) Symptom Onset: Gradual Symptom Course: Unchanged Quality: Aching, Pressure Activities at Onset: Light Context: Home Past Medical History - Provider Review Nursing Documentation Reviewed: Yes - Past History Past History: Non-Contributing - Infectious Disease Hx of Infectious Diseases: None - Tetanus Immunization Tetanus Immunization: Unknown - Cardiac Hx Hypertension: Yes - Pulmonary Hx Respiratory Disorders: Yes Hx Asthma: Yes Hx Bronchitis: Yes Hx Chronic Obstructive Pulmonary Disease (COPD): Yes - Neurological Hx Neurological Disorder: No - HEENT Hx HEENT Disorder: No - Renal Hx Renal Disorder: No - Endocrine/Metabolic Hx Endocrine Disorders: Yes Hx Diabetes Mellitus Type 1: Yes - Hematological/Oncological Hx Blood Disorders: Yes Hx Cancer: Yes (colon/ pancreatic) - Integumentary Hx Dermatological Disorder: No - Musculoskeletal/Rheumatological Hx Musculoskeletal Disorders: Yes Hx Arthritis: Yes Hx Back Pain: Yes Hx Falls: Yes Hx Unsteady Gait: Yes - Gastrointestinal Hx Gastrointestinal Disorders: Yes Hx Gastroesophageal Reflux: Yes - Genitourinary/Gynecological Hx Genitourinary Disorders: Yes Hx Urinary Tract Infection: Yes Other/Comment: Tube ligation - Psychiatric Hx Psychophysiologic Disorder: No Hx Substance Use: No (HX not now) Other/Comment: Hx substance abuse treatment - Surgical History Other/Comment: CA Colon - whipple - Anesthesia Hx Anesthesia: Yes Hx Anesthesia Reactions: No Hx Malignant Hyperthermia: No - Suicidal Assessment Feels Threatened In Home Enviroment: No Family/Social History - Physician Review Nursing Documentation Reviewed: Yes Family/Social History: No Known Family HX Smoking Status: Former Smoker Hx Alcohol Use: No Hx Substance Use: No (HX not now) Hx Substance Use Treatment: Yes Allergies/Home Meds Allergies/Adverse Reactions: Allergies acetaminophen [From Tylenol-Codeine] Allergy (Verified 03/10/18 19:16) RASH codeine Allergy (Verified 03/10/18 19:16) VOMITING iodine Allergy (Verified 03/10/18 19:16) RASH Home Medications: Home Meds Medication Instructions Recorded Confirmed Gabapentin [Neurontin] 100 mg PO BID 12/12/17 05/02/18 Oxycodone HCl [Oxycontin] 80 mg PO Q12 PRN 12/12/17 05/02/18 Insulin Glargine, Recombina 20 unit SQ BID 03/10/18 05/02/18 [Lantus] Insulin Human Regular-MED [HumuLIN 5 units SC TID 03/10/18 05/02/18 R MED] Review of Systems - Physician Review All systems were reviewed & negative as marked: Yes - Review of Systems Respiratory: absent: SOB Cardiovascular: Chest Pain Gastrointestinal: absent: Abdominal Pain, Diarrhea, Nausea, Vomiting Neurological: absent: Headache, Dizziness Physical Exam - Physical Exam Narrative Physical Exam (Text): 05/02/18 18:51 Gen: VS reviewed, alert, well developed, well nourished, nontoxic, mild distress ENT: normal pharynx Eye: EOMI, PERRL Neck: no JVD, supple, no adenopathy CV: regular rate, regular rhythm, no rubs,no murmur, no gallops, S1, S2, pulses equal and strong Pulm: no distress, clear to auscultation, no wheeze, no rhonchi, breath sounds equal, no rales, tenderness in the lower left chest wall Abd: soft, nontender, no guarding, no rebound, no rigidity, normal bowel sounds Ext: no edema Skin: good color, no rash, no cyanosis Psych: responds appropriately to questions, normal affect Neuro: oriented x3, CN2-12 intact grossly, motor intact, sensation intact Vital Signs Reviewed: Yes Vital Signs Temp Pulse Resp BP Pulse Ox 05/02/18 20:56 82 18 122/89 98 05/02/18 17:44 99.2 F 88 20 120/68 95 Temperature: Afebrile Blood Pressure: Normal Pulse: Regular Respiratory Rate: Normal Appearance: Positive for: Well-Appearing, Non-Toxic, Comfortable Pain Distress: Mild Mental Status: Positive for: Alert and Oriented X 3 Medical Decision Making ED Course and Treatment: 05/02/18 18:53 Impression: 52 year old female, presents to the emergency department complaining of lower left chest wall discomfort. Plan: --EKG --Labs --Chest X-ray --Reassess and disposition Prior Visits: Notes and results from previous visits were reviewed. Progress Notes: 05/02/18 19:01 05/02/18 21:01 patient was seen for nonspecific chest wall pain, clearly reproducible to palpation, no sig clinical suspicion for PE or aortic dissection. with a negative trop and normal ekg, an acute event such as ACs is a very unlikley event. patient found to be severely hyperglycemic which improved with hydration and insulin. patient remained stable throughout ED course and will follow up with pcp. - Lab Interpretations Lab Results: 05/02/18 19:11 05/02/18 19:11 Lab Results 05/02/18 20:47: POC Glucose (mg/dL) 261 H 05/02/18 19:11: WBC 5.8 D, RBC 4.45, Hgb 11.1 L, Hct 34.2 L, MCV 76.9 L, MCH 24.9 L, MCHC 32.5, RDW 14.5, Plt Count 281, MPV 9.6, Gran % 51.3, Lymph % (Auto ) 41.1 H, [place] % (Auto) 6.0, Eos % (Auto) 1.4 L, Baso % (Auto) 0.2, Gran # 2.97 , Lymph # (Auto) 2.4, [place] # (Auto) 0.4, Eos # (Auto) 0.1, Baso # (Auto) 0.01 05/02/18 19:11: Sodium 140, Potassium 4.0, Chloride 105, Carbon Dioxide 22, Anion Gap 18, BUN 19, Creatinine 0.6 L, Est GFR ( Amer) > 60, Est GFR ( Non-Af Amer) > 60, Random Glucose 400 H* D, Calcium 9.3, Total Bilirubin 0.4, AST 15, ALT 25, Alkaline Phosphatase 99, Troponin I < 0.01, Total Protein 6.7, Albumin 3.9, Globulin 2.9, Albumin/Globulin Ratio 1.3 - RAD Interpretation Narrative RAD Interpretations (Text): 05/02/18 19:01 Chest X-ray reviewed by radiologist, shows no active disease. Radiology Orders: 05/02/18 18:32 CHEST PORTABLE [RAD] Stat Floral Clerk: Radiologist - EKG Interpretation EKG Interpretation (Text): 05/02/18 17:37 NSR @ 94bpm. Normal qrs, normal axis, no acute sttw changes. Interpreted by ED Physician: Yes Type: 12 lead EKG - Medication Orders Current Medication Orders: Sodium Chloride (Sodium Chloride 0.9%) 2,000 mls @ 999 mls/hr IV .Q2H1M STA Stop: 05/02/18 21:48 Last Admin: 05/02/18 20:08 Dose: 999 mls/hr eMAR Start Stop Document 05/02/18 20:08 GMD (Rec: 05/02/18 20:08 GMD [email or web address] Intravenous Solution Start Date 05/02/18 Start Time 20:08 End Date 05/02/18 End time 22:09 Total Infusion Time 121 Discontinued Medications Insulin Human Regular (Humulin R) 8 units IV ONCE STA Stop: 05/02/18 19:50 Last Admin: 05/02/18 19:53 Dose: 8 unit eMAR Start Stop Document 05/02/18 19:53 GMD (Rec: 05/02/18 19:53 GMD [email or web address] Intravenous Solution Start Date 05/02/18 Start Time 19:53 MAR Blood Glucose Document 05/02/18 19:53 GMD (Rec: 05/02/18 19:53 [email or web address] Blood Glucose Finger Stick Blood Glucose (70-120) 400 - Scribe Statement The provider has reviewed the documentation as recorded by the Scribbelia Le, [facility] with [facility] All medical record entries made by the Patriciaibbelia were at my direction and personally dictated by me. I have reviewed the chart and agree that the record accurately reflects my personal performance of the history, physical exam, medical decision making, and the department course for this patient. I have also personally directed, reviewed, and agree with the discharge instructions and disposition. Disposition/Present on Arrival - Present on Arrival Any Indicators Present on Arrival: No History of DVT/PE: No History of Uncontrolled Diabetes: No Urinary Catheter: No History of Decub. Ulcer: No History Surgical Site Infection Following: None - Disposition Have Diagnosis and Disposition been Completed?: Yes Diagnosis: Chest wall pain, Hyperglycemia due to type 2 diabetes mellitus Disposition: HOME/ ROUTINE Disposition Time: 21:03 Condition: GOOD Discharge Instructions (ExitCare): Chest Pain (ED), Type 2 Diabetes Print Language: PARAGUAYAN Additional Instructions: return for any new or worsening symptoms. follow up with your primary care doctor. Referrals: Ronnell Sue MD [Primary Care Provider] - Follow up with primary Forms: [employer] (Citizen Of [place])
--- NOTE | 2018-05-02 18:57 | RAD ---
HISTORY: chest pain COMPARISON: Chest radiograph dated 04/05/2018 FINDINGS: LUNGS: No active pulmonary disease. PLEURA: No significant pleural effusion identified, no pneumothorax apparent. CARDIOVASCULAR: Normal. OSSEOUS STRUCTURES: No significant abnormalities. VISUALIZED UPPER ABDOMEN: Normal. OTHER FINDINGS: None. IMPRESSION: No active disease.
[2018-05-02 19:33] LABS: ALB/GLOB RATIO 1.3 (1.1-1.8); ALBUMIN 3.9 g/dL (3.0-4.8); ALT/SGPT 25 U/L (7-56); AST/SGOT 15 U/L (14-36); BLOOD UREA NITROGEN 19 mg/dL (7-21); CALCIUM 9.3 mg/dL (8.4-10.5); GFR AFRICAN-AMERICAN > 60; GFR NON-AFRICAN AMERICAN > 60
[2018-05-02 19:40] LABS: TROPONIN I < 0.01 ng/mL
[2018-05-02 19:47] LABS: BASO # 0.01 K/mm3 (0.0-2.0); BASO % 0.2 % (0.0-3.0); EOS # 0.1 (0.0-0.7); EOS % 1.4 % (1.5-5.0); GRAN # 2.97 (1.4-6.5); GRAN % 51.3 % (50.0-68.0); HEMOGLOBIN 11.1 g/dL (12.0-16.0); LYMPH # 2.4 (1.2-3.4); LYMPH % 41.1 % (22.0-35.0); MEAN CELL VOLUME 76.9 fl (80.0-105.0); MEAN CORPUSCULAR HEMOGLOBIN 24.9 pg (25.0-35.0); MEAN CORPUSCULAR HGB CONC 32.5 g/dl (31.0-37.0); MEAN PLATELET VOLUME 9.6 fl (7.0-11.0); MONO # 0.4 (0.1-0.6); RBC 4.45 10^6/uL (3.5-6.1); RED CELL DISTRIBUTION WIDTH 14.5 % (11.5-14.5); WHITE BLOOD COUNT 5.8 10^3/ul (4.5-11.0)
[2018-05-02] MEDS ORDERED: Sodium Chloride 0.9% 2,000 ML IV STA (19:48)
[2018-05-02] MEDS ORDERED: Insulin Regular 1 UNITS/0.01 ML ML IV STA (19:49)
[2018-05-02 20:57] VITALS: BP 122/89; PULSE 82; RESP 18; O2SAT 98
--- NOTE | 2018-05-02 22:33 | CARD ---
APPROVED REPORT EKG Measurement Heart [id number] <Conclusion> Normal sinus rhythm Normal ECG
== END 2018-05-02 21:08 | disposition home or self-care (01) ==
LOC: ED 17:29
DX: R07.89 Other chest pain (principal); E11.65 Type 2 diabetes mellitus with hyperglycemia; I10 Essential (primary) hypertension; J44.9 Chronic obstructive pulmonary disease, unspecified; Z87.891 Personal history of nicotine dependence
CPT/HCPCS: 71045; 80053; 82948; 84484; 85025; 93005; 96360; 96361; 99284; J7030

== ENCOUNTER 2018-05-30 18:16 | Emergency (ER) | payer BC, OTHER ==
[2018-05-30 18:35] VITALS: BMI 26.6
[2018-05-30 18:42] VITALS: RESP 18
[2018-05-30] MEDS ORDERED: Sodium Chloride 0.9% 500 ML IV STA (19:28)
[2018-05-30 19:55] LABS: BASO # 0.01 K/mm3 (0.0-2.0); BASO % 0.2 % (0.0-3.0); EOS % 0.7 % (1.5-5.0); GRAN # 2.37 (1.4-6.5); GRAN % 54.1 % (50.0-68.0); HEMOGLOBIN 12.4 g/dL (12.0-16.0); LYMPH # 1.7 (1.2-3.4); LYMPH % 39.3 % (22.0-35.0); MEAN CORPUSCULAR HGB CONC 32.9 g/dl (31.0-37.0); MEAN PLATELET VOLUME 8.6 fl (7.0-11.0); MONO # 0.3 (0.1-0.6); MONO % 5.7 % (1.0-6.0); RBC 4.96 10^6/uL (3.5-6.1); RED CELL DISTRIBUTION WIDTH 15.1 % (11.5-14.5); WHITE BLOOD COUNT 4.4 10^3/ul (4.5-11.0)
[2018-05-30 20:03] LABS: INR 1.09; PROTHROMBIN TIME 12.4 SECONDS (9.4-12.5)
[2018-05-30 20:14] LABS: D DIMER < 200 mg/L DDU (0-243)
[2018-05-30 20:16] LABS: ALB/GLOB RATIO 1.3 (1.1-1.8); ALBUMIN 4.2 g/dL (3.0-4.8); ALT/SGPT 26 U/L (7-56); AST/SGOT 17 U/L (14-36); BILIRUBIN,DIRECT 0.1 mg/dL (0.0-0.4); BLOOD UREA NITROGEN 16 mg/dL (7-21); CALCIUM 9.9 mg/dL (8.4-10.5); GFR AFRICAN-AMERICAN > 60; GFR NON-AFRICAN AMERICAN > 60; LIPASE 32 U/L (23-300)
[2018-05-30 20:24] LABS: TROPONIN I < 0.01 ng/mL
--- NOTE | 2018-05-30 20:27 | ED PDOC ---
Arrival/HPI - General Chief Complaint: Chest Pain Time Seen by Provider: 05/30/18 18:20 - History of Present Illness Narrative History of Present Illness (Text): 05/30/18 20:22 PGY-[address] Goodman Pt is a 52 year old female who presents with bright red blood in the stool and R sided chest pain. Pt states that two nights ago she woke from sleep to go to the bathroom to have a BM and noticed a substantial amount of bright red blood on the toilet paper, then looked and noticed blood mixed in with the stool. She denies experiencing any dizziness or passing out, has not had any more episodes of bloody stool since. She has had vague non-radiating R lower abdominal pain and some nausea. The patient also complains of sharp/achy R- sided parasternal chest pain that is tender to touch for the past two days. Patient denies any fevers or chills. She also complains of vague L-sided weakness and pain across the entire left side of her body. 05/30/18 21:29 Pt had episode of small amount pink vomitus in ED 05/30/18 21:52 Time/Duration: < week Symptom Onset: Gradual Quality: Aching, Other (sharp) Activities at Onset: Rest Past Medical History - Provider Review Nursing Documentation Reviewed: Yes - Past History Past History: Non-Contributing - Infectious Disease Hx of Infectious Diseases: None - Tetanus Immunization Tetanus Immunization: Unknown - Cardiac Hx Cardiac Disorders: Yes Hx Hypertension: Yes - Pulmonary Hx Respiratory Disorders: Yes Hx Asthma: Yes Hx Bronchitis: Yes Hx Chronic Obstructive Pulmonary Disease (COPD): Yes - Neurological Hx Neurological Disorder: No - HEENT Hx HEENT Disorder: No - Renal Hx Renal Disorder: No - Endocrine/Metabolic Hx Endocrine Disorders: Yes Hx Diabetes Mellitus Type 1: Yes - Hematological/Oncological Hx Blood Disorders: Yes Hx Cancer: Yes (colon/ pancreatic) - Integumentary Hx Dermatological Disorder: No - Musculoskeletal/Rheumatological Hx Musculoskeletal Disorders: Yes Hx Arthritis: Yes Hx Back Pain: Yes Hx Falls: Yes Hx Unsteady Gait: Yes - Gastrointestinal Hx Gastrointestinal Disorders: Yes Hx Gastroesophageal Reflux: Yes - Genitourinary/Gynecological Hx Genitourinary Disorders: Yes Hx Urinary Tract Infection: Yes Other/Comment: Tube ligation - Psychiatric Hx Psychophysiologic Disorder: No Hx Substance Use: No (HX not now) Other/Comment: Hx substance abuse treatment - Surgical History Other/Comment: CA Colon - whipple - Anesthesia Hx Anesthesia: Yes Hx Anesthesia Reactions: No Hx Malignant Hyperthermia: No - Suicidal Assessment Feels Threatened In Home Enviroment: No Family/Social History - Physician Review Nursing Documentation Reviewed: Yes Family/Social History: No Known Family HX Smoking Status: Former Smoker Hx Alcohol Use: No Hx Substance Use: No (HX not now) Hx Substance Use Treatment: Yes Allergies/Home Meds Allergies/Adverse Reactions: Allergies acetaminophen [From Tylenol-Codeine] Allergy (Verified 05/30/18 18:35) RASH codeine Allergy (Verified 05/30/18 18:35) VOMITING iodine Allergy (Verified 05/30/18 18:35) RASH Home Medications: Home Meds Medication Instructions Recorded Confirmed Gabapentin [Neurontin] 100 mg PO BID 12/12/17 05/02/18 Oxycodone HCl [Oxycontin] 80 mg PO Q12 PRN 12/12/17 05/02/18 Insulin Glargine, Recombina 20 unit SQ BID 03/10/18 05/02/18 [Lantus] Insulin Human Regular-MED [HumuLIN 5 units SC TID 03/10/18 05/02/18 R MED] Review of Systems - Physician Review All systems were reviewed & negative as marked: Yes - Review of Systems Constitutional: Night Sweats. absent: Fevers Eyes: Normal. absent: Vision Changes, Photophobia ENT: Normal. absent: Sore Throat, Rhinorrhea Respiratory: absent: Cough, Sputum, Wheezing Cardiovascular: Chest Pain (+R sided parasternal chest pain tender to touch). absent: Palpitations Gastrointestinal: Abdominal Pain, Stool Changes (+blood in the stool), Nausea. absent: Vomiting, Hematemesis, Anorexia, Food Intolerance Genitourinary Female: Normal. absent: Dysuria, Frequency Musculoskeletal: Back Pain, Neck Pain Skin: absent: Rash, Pruritis, Skin Lesions Neurological: Headache. absent: Dizziness, Facial Droop Physical Exam - Physical Exam Narrative Physical Exam (Text): Rectal exam performed by myself in the presence of female gauge and weigh machine adjuster Leyla Deluna Vital Signs Reviewed: Yes Vital Signs Temp Pulse Resp BP Pulse Ox 05/30/18 18:41 99.0 F 86 18 144/98 H 95 Temperature: Afebrile Blood Pressure: Hypertensive Pulse: Regular Respiratory Rate: Normal Appearance: Positive for: Non-Toxic Pain Distress: Mild Mental Status: Positive for: Alert and Oriented X 3 - Systems Exam Head: Present: Atraumatic, Normocephalic Pupils: Present: PERRL Extroacular Muscles: Present: EOMI Conjunctiva: Present: Normal Mouth: Present: Moist Mucous Membranes Pharnyx: Present: Normal. No: ERYTHEMA, EXUDATE Nose (External): Present: Atraumatic Neck: Present: Normal Range of Motion. No: JVD Respiratory/Chest: Present: Clear to Auscultation, Good Air Exchange. No: Respiratory Distress, Accessory Muscle Use, Wheezes Cardiovascular: Present: Regular Rate and Rhythm, Normal S1, S2. No: Murmurs Abdomen: Present: Tenderness (+Tenderness to palpation in RUQ and R flank), Normal Bowel Sounds. No: Distention, Peritoneal Signs, Rebound, Guarding Rectal: Present: Normal Rectal Tone, Other (+guaiac positive stool). No: Gross Blood, Hemorrhoids, Fissures Upper Extremity: Present: Normal Inspection. No: Cyanosis, Edema Lower Extremity: Present: Normal Inspection, NORMAL PULSES. No: Edema, CALF TENDERNESS Neurological: Present: GCS=15, CN II-XII Intact Skin: Present: Warm, Dry, Normal Color. No: Rashes Psychiatric: Present: Alert, Oriented x 3 Medical Decision Making ED Course and Treatment: 1) Bloody stools/abdominal pain * Labs: CBC w/ dif, CMP, Lipase, LFTs, coags, urine cx; All labs reviewed * Stool Guaiac + * .9% NS 500mL IV * Toradol 15 mg IM for pain, Zofran 8mg IVP for nausea * CXR - negative for acute pathology * d/c with plans to f/u with GI Dr. Fitch 2) Chest pain * EKG: NSR, possible left atrial enlargement, no ST or T changes * Trops negative x1 * Reproducible with palpation - likely MSK in nature - Lab Interpretations Lab Results: 05/30/18 19:34 05/30/18 19:34 Lab Results 05/30/18 20:39: Urine Color Yellow, Urine Appearance Clear, Urine pH 6.0, Ur Specific [place] 1.015, Urine Protein Negative, Urine Glucose (UA) Negative, Urine Ketones Negative, Urine Blood Negative, Urine Nitrate Negative, Urine Bilirubin Negative, Urine Urobilinogen 0.2, Ur Leukocyte Esterase Negative 05/30/18 19:34: Sodium 139, Potassium 3.7, Chloride 100, Carbon Dioxide 28, Anion Gap 16, BUN 16, Creatinine 0.7, Est GFR ( Amer) > 60, Est GFR (Non- Af Amer) > 60, Random Glucose 131 H, Calcium 9.9, Total Bilirubin 0.5, Direct Bilirubin 0.1, AST 17, ALT 26, Alkaline Phosphatase 102, Lactate Dehydrogenase 315 L, Total Creatine Kinase 100, Troponin I < 0.01, Total Protein 7.3, Albumin 4.2, Globulin 3.1, Albumin/Globulin Ratio 1.3, Lipase 32 05/30/18 19:34: PT 12.4, INR 1.09, D-Dimer, Quantitative < 200 05/30/18 19:34: WBC 4.4 L D, RBC 4.96, Hgb 12.4, Hct 37.7, MCV 76.0 L, MCH 25.0 , MCHC 32.9, RDW 15.1 H, Plt Count 283, MPV 8.6, Gran % 54.1, Lymph % (Auto) 39.3 H, [place] % (Auto) 5.7, Eos % (Auto) 0.7 L, Baso % (Auto) 0.2, Gran # 2.37, Lymph # (Auto) 1.7, [place] # (Auto) 0.3, Eos # (Auto) 0.0, Baso # (Auto) 0.01 - RAD Interpretation Radiology Orders: 05/30/18 19:28 CHEST PORTABLE [RAD] Stat - Medication Orders Current Medication Orders: Discontinued Medications Sodium Chloride (Sodium Chloride 0.9%) 500 mls @ 999 mls/hr IV .Q31M STA Stop: 05/30/18 19:58 Last Admin: 05/30/18 19:47 Dose: 999 mls/hr eMAR Start Stop Document 05/30/18 19:47 LA (Rec: 05/30/18 19:48 LA [email or web address] Intravenous Solution Start Date 05/30/18 Start Time 19:47 End Date 05/30/18 End time 20:18 Total Infusion Time 31 Ketorolac Tromethamine (Toradol) 15 mg IM STAT STA Stop: 08/06/18 20:39 Last Admin: 05/30/18 21:18 Dose: 15 mg MAR Pain Assessment Document 05/30/18 21:18 LA (Rec: 05/30/18 21:18 [place] [email or web address] Pain Reassessment Is this a pain reassessment? No Sleep Is patient sleeping during reassessment? No Presence of Pain Presence of Pain Yes Pain Scale Used Pain Scale Used Numeric Location Pain Location Body Site Chest Description Intensity of Pain at present 4 IM Administration Charges Document 05/30/18 21:18 LA (Rec: 05/30/18 21:18 LA [email or web address] Charges for Administration # of IM Administrations 1 Ondansetron HCl (Zofran Inj) 8 mg IVP STAT STA Stop: 05/30/18 20:25 Last Admin: 05/30/18 20:31 Dose: 8 mg IVP Administration Document 05/30/18 20:31 LA (Rec: 05/30/18 20:31 LA [email or web address] Charges for Administration # of IVP Administrations 1 Disposition/Present on Arrival - Present on Arrival Any Indicators Present on Arrival: No History of DVT/PE: No History of Uncontrolled Diabetes: No Urinary Catheter: No History of Decub. Ulcer: No History Surgical Site Infection Following: None - Disposition Have Diagnosis and Disposition been Completed?: Yes Diagnosis: Abdominal pain Disposition: HOME/ ROUTINE Disposition Time: 21:54 (f/u GI) Condition: IMPROVED Additional Instructions: RAYA URIAS, thank you for letting us take care of you today. Your provider was Fortunato Goodman DO and you were treated for blood in the stool/abdominal pain and chest pain. The emergency medical care you received today was directed at your acute symptoms. If you were prescribed any medication, please fill it and take as directed. It may take several days for your symptoms to resolve. Return to the Emergency Department if your symptoms worsen, do not improve, or if you have any other problems. Please contact your doctor or call one of the physicians/clinics you have been referred to that are listed on the Patient Visit Information form that is included in your discharge packet. Bring any paperwork you were given at discharge with you along with any medications you are taking to your follow up visit. Our treatment cannot replace ongoing medical care by a primary care provider outside of the emergency department. Thank you for allowing the [facility] team to be part of your care today. If you had an X-Ray or CT scan: A Radiologist will review the ED reading if any change in treatment is needed we will contact you. If you had a blood, urine, or wound culture: It will take several days for the results, if any change in treatment is needed we will contact you. If you had an STI test: It will take 48 hours for the results. Please call after 1 week if you have not heard back. Prescriptions: Esomeprazole Magnesium [Nexium] 20 mg PO DAILY 28 Days #28 capsule. Ranitidine HCl [Zantac] 150 mg PO BID 28 Days #56 tablet Referrals: Ronnell Sue MD [Primary Care Provider] - Follow up with primary Kilo Muñoz MD [Medical Doctor] - Follow up with primary Forms: [employer] ([place])
[2018-05-30 20:52] LABS: URINE APPEARANCE CLEAR (CLEAR); URINE BILIRUBIN NEGATIVE (NEGATIVE); URINE BLOOD NEGATIVE (NEGATIVE); URINE COLOR YELLOW (YELLOW); URINE GLUCOSE (UA) NEGATIVE (NEGATIVE); URINE LEUKOCYTE ESTERASE NEGATIVE Leu/uL (NEGATIVE); URINE PROTEIN NEGATIVE mg/dL (<30 mg/dL); URINE UROBILINOGEN 0.2 E.U./dL (<1 E.U./dL)
[2018-05-30 23:49] VITALS: TEMP 98.9
[2018-05-30 23:51] VITALS: BP 137/85; PULSE 85; O2SAT 100
--- NOTE | 2018-05-31 12:17 | RAD ---
Date of service: 05/30/2018 HISTORY: chest pain COMPARISON: 05/02/2018 FINDINGS: LUNGS: No active pulmonary disease. PLEURA: No significant pleural effusion identified, no pneumothorax apparent. CARDIOVASCULAR: Normal. OSSEOUS STRUCTURES: No significant abnormalities. VISUALIZED UPPER ABDOMEN: Normal. OTHER FINDINGS: None. IMPRESSION: No active disease.
--- NOTE | 2018-05-31 15:48 | CARD ---
APPROVED REPORT Date of service: 05/30/2018 EKG Measurement Heart [id number] <Conclusion> Normal sinus rhythm Possible Left atrial enlargement Borderline ECG
== END 2018-05-30 22:10 | disposition home or self-care (01) ==
LOC: ED 18:16
DX: R10.9 Unspecified abdominal pain (principal); I10 Essential (primary) hypertension; Z87.891 Personal history of nicotine dependence
CPT/HCPCS: 71045; 80053; 81003; 82248; 82550; 83615; 83690; 84484; 85025; 85378; 85610; 87086; 93005; 96361; 96372; 96374; 99283; J1885; J2405; J7040

== ENCOUNTER 2018-06-22 17:34 | Observation (INO) | payer BC, OTHER ==
[2018-06-22 17:49] VITALS: BMI 31.4
--- NOTE | 2018-06-22 18:53 | ED PDOC ---
Arrival/HPI - General Chief Complaint: Trauma Time Seen by Provider: 06/22/18 18:00 Historian: Patient - History of Present Illness Narrative History of Present Illness (Text): 06/22/18 18:31 52yo female with pmhx of hypertension, Diabetes, gastroparesis who was bib EMS for left hip pain and b/l knee pain. She reports that she fell 5days ago and started having knee pain two days after. States hip pain started yesterday. States pain is sharp and constant worse with movement. States she has been ambulating. Also reports having a syncopal episode today. States she "passed out " while going to her kitchen today, and her son found her on the floor. She however denies headache, nausea, vomiting, focal weakness, slurred speech, abdominal pain, chest pain, SOB, any other complaint. Past Medical History - Provider Review Nursing Documentation Reviewed: Yes - Past History Past History: Non-Contributing - Infectious Disease Hx of Infectious Diseases: None - Tetanus Immunization Tetanus Immunization: Unknown - Cardiac Hx Cardiac Disorders: Yes Hx Hypertension: Yes - Pulmonary Hx Respiratory Disorders: Yes Hx Asthma: Yes Hx Bronchitis: Yes Hx Chronic Obstructive Pulmonary Disease (COPD): Yes - Neurological Hx Neurological Disorder: No - HEENT Hx HEENT Disorder: No - Renal Hx Renal Disorder: No - Endocrine/Metabolic Hx Endocrine Disorders: Yes Hx Diabetes Mellitus Type 1: Yes - Hematological/Oncological Hx Blood Disorders: Yes Hx Cancer: Yes (colon/ pancreatic) - Integumentary Hx Dermatological Disorder: No - Musculoskeletal/Rheumatological Hx Musculoskeletal Disorders: Yes Hx Arthritis: Yes Hx Back Pain: Yes Hx Falls: Yes Hx Unsteady Gait: Yes - Gastrointestinal Hx Gastrointestinal Disorders: Yes Hx Gastroesophageal Reflux: Yes - Genitourinary/Gynecological Hx Genitourinary Disorders: Yes Hx Urinary Tract Infection: Yes Other/Comment: Tube ligation - Psychiatric Hx Psychophysiologic Disorder: No Hx Substance Use: No (HX not now) Other/Comment: Hx substance abuse treatment - Surgical History Other/Comment: CA Colon - whipple - Anesthesia Hx Anesthesia: Yes Hx Anesthesia Reactions: No Hx Malignant Hyperthermia: No - Suicidal Assessment Feels Threatened In Home Enviroment: No Family/Social History - Physician Review Nursing Documentation Reviewed: Yes Family/Social History: Unknown Family HX Smoking Status: Light Smoker < 10 Cigarettes Daily Hx Alcohol Use: No Hx Substance Use: No (HX not now) Hx Substance Use Treatment: Yes Allergies/Home Meds Allergies/Adverse Reactions: Allergies acetaminophen [From Tylenol-Codeine] Allergy (Verified 06/22/18 18:27) RASH codeine Allergy (Verified 06/22/18 18:27) VOMITING iodine Allergy (Verified 06/22/18 18:27) RASH Home Medications: Home Meds Medication Instructions Recorded Confirmed Gabapentin [Neurontin] 100 mg PO BID 12/12/17 06/22/18 Insulin Glargine, Recombina 22 unit SQ BID 03/10/18 06/22/18 [Lantus] Insulin Human Regular-MED [HumuLIN 5 units SC TID 03/10/18 06/22/18 R MED] Oxycodone HCl [Oxycontin] 30 mg PO Q6 PRN 06/22/18 06/22/18 Oxycodone HCl/Acetaminophen 1 each PO PRN PRN 06/22/18 06/22/18 [Percocet 10-325 mg Tablet] Review of Systems - Physician Review All systems were reviewed & negative as marked: Yes - Review of Systems Constitutional: Normal Eyes: Normal ENT: Normal Respiratory: Normal Cardiovascular: Normal Gastrointestinal: Normal Genitourinary Female: Normal Musculoskeletal: Arthralgias (Left hip pain/knee pain) Skin: Normal Neurological: Dizziness (Syncope) Endocrine: Normal Hemo/Lymphatic: Normal Psychiatric: Normal Physical Exam Vital Signs Reviewed: Yes Vital Signs Temp Pulse Resp BP Pulse Ox 06/22/18 19:54 73 17 127/92 H 98 06/22/18 17:49 98.8 F 81 17 117/74 96 Temperature: Afebrile Blood Pressure: Normal Pulse: Regular Respiratory Rate: Normal Appearance: Positive for: Well-Appearing, Non-Toxic, Comfortable Pain Distress: None Mental Status: Positive for: Alert and Oriented X 3 Finger Stick Blood Glucose: 188 - Systems Exam Head: Present: Atraumatic, Normocephalic Pupils: Present: PERRL Extroacular Muscles: Present: EOMI Conjunctiva: Present: Normal Mouth: Present: Moist Mucous Membranes Neck: Present: Normal Range of Motion Respiratory/Chest: Present: Clear to Auscultation, Good Air Exchange. No: Respiratory Distress, Accessory Muscle Use Cardiovascular: Present: Regular Rate and Rhythm, Normal S1, S2. No: Murmurs Abdomen: No: Tenderness, Distention, Peritoneal Signs Back: Present: Normal Inspection Upper Extremity: Present: Normal Inspection. No: Cyanosis, Edema Lower Extremity: Present: NORMAL PULSES, Normal ROM, Tenderness (Left lateral hip and right knee.), Neurovascularly Intact, Other (Healing abrasion noted over right knee). No: Edema, Swelling Neurological: Present: GCS=15, CN II-XII Intact, Speech Normal, Motor Func Grossly Intact, Normal Sensory Function, Normal Cerebellar Funct, Norm Deep Tendon Reflexes, Memory Normal, Other (No focal neurological deficit) Skin: Present: Warm, Dry, Normal Color. No: Rashes Psychiatric: Present: Alert, Oriented x 3, Normal Insight, Normal Concentration Medical Decision Making ED Course and Treatment: 06/22/18 20:38 PT presented to ED for stated history. She was neurologically intact. Lab was ordered and reviewed EKG NSR @ 78bpm NSTEMI Left hip xray - No acute fracture/dislocation B/L knee xray - No acute fracture/dislocation CXR : NAD Secondary to pt's complaint for syncope, she will be placed on Tele OBS for further observation and evaluation. Case was DW Dr. Mcclendon while he was in ED and he took pt into his service. - Lab Interpretations Lab Results: Lab Results 06/22/18 18:10: POC Glucose (mg/dL) 188 H - RAD Interpretation Radiology Orders: 06/22/18 18:00 Hip Left [HIP MIN 2V W/ PELVIS LT] [RAD] Stat 06/22/18 18:01 KNEE W PATELLA BILAT 3 VIEW [RAD] Stat - Medication Orders Current Medication Orders: Discontinued Medications Diazepam (Valium) 5 mg PO ONCE ONE PRN Reason: Protocol Stop: 06/22/18 20:04 Last Admin: 06/22/18 20:10 Dose: 5 mg Ketorolac Tromethamine (Toradol) 30 mg IVP STAT STA Stop: 06/22/18 20:05 Disposition/Present on Arrival - Present on Arrival Any Indicators Present on Arrival: No History of DVT/PE: No History of Uncontrolled Diabetes: No Urinary Catheter: No History of Decub. Ulcer: No History Surgical Site Infection Following: None - Disposition Have Diagnosis and Disposition been Completed?: Yes Diagnosis: Hip pain, Knee pain, Near syncope Disposition: HOSPITALIZED Disposition Time: 19:05 Patient Plan: Admission Patient Problems: Current Active Problems Problem Status Onset Hip pain Acute Knee pain Acute Near syncope Acute Condition: STABLE
--- NOTE | 2018-06-22 18:59 | RAD ---
PROCEDURE: Left Hip X-ray Radiographs. HISTORY: hip pain s/p trauma COMPARISON: None. FINDINGS: BONES: No acute fracture. JOINTS: Normal. SOFT TISSUES: Normal. OTHER FINDINGS: None. IMPRESSION: No demonstrated fracture or dislocation.
--- NOTE | 2018-06-22 19:01 | RAD ---
Date of service: 06/22/2018 PROCEDURE: Bilateral Knee Radiographs. HISTORY: knee pain s/p trauma COMPARISON: Bilateral knee radiographs dated 01/10/2018. FINDINGS: BONES: Right Knee: No acute fracture. Left Knee: No acute fracture. Stable bony sclerosis in the distal femur and proximal tibia. JOINTS: Right Knee: Unremarkable. Left knee: Unremarkable. SOFT TISSUES: Right Knee: Normal. Left Knee: Normal. JOINT EFFUSION: Right Knee: None. Left Knee: None. OTHER FINDINGS: None. IMPRESSION: No demonstrated fracture or dislocation. 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
[2018-06-22 19:23] LABS: BASO # 0.01 K/mm3 (0.0-2.0); BASO % 0.2 % (0.0-3.0); EOS % 0.5 % (1.5-5.0); GRAN # 1.76 (1.4-6.5); HEMOGLOBIN 12.2 g/dL (12.0-16.0); MEAN CELL VOLUME 76.4 fl (80.0-105.0); MEAN CORPUSCULAR HEMOGLOBIN 24.8 pg (25.0-35.0); MEAN CORPUSCULAR HGB CONC 32.5 g/dl (31.0-37.0); MEAN PLATELET VOLUME 8.7 fl (7.0-11.0); MONO # 0.3 (0.1-0.6); MONO % 8.3 % (1.0-6.0); RBC 4.91 10^6/uL (3.5-6.1); RED CELL DISTRIBUTION WIDTH 15.7 % (11.5-14.5); WHITE BLOOD COUNT 4.1 10^3/ul (4.5-11.0)
[2018-06-22 19:39] LABS: ALB/GLOB RATIO 1.5 (1.1-1.8); ALBUMIN 4.4 g/dL (3.0-4.8); ALT/SGPT 20 U/L (7-56); AST/SGOT 24 U/L (14-36); BLOOD UREA NITROGEN 15 mg/dL (7-21); CALCIUM 10.2 mg/dL (8.4-10.5); GFR NON-AFRICAN AMERICAN > 60
[2018-06-22 19:44] LABS: TROPONIN I < 0.01 ng/mL
[2018-06-22 19:52] LABS: INR 1.06; PARTIAL THROMBOPLASTIN TIME 27.2 Seconds (25.1-36.5); PROTHROMBIN TIME 12.1 SECONDS (9.4-12.5)
[2018-06-22] MEDS ORDERED: Potassium Chloride 20 mEq ER Tab PO ONE (21:31)
[2018-06-22] MEDS: Insulin Reg-LOW-Coverage SC SCH (22:27)
--- NOTE | 2018-06-23 01:33 | HP ---
Copied To: Mayur Mcclendon DO Attending MD: Mayur Mcclendon DO HISTORY OF PRESENT ILLNESS: I was called down to the emergency room to see Marizol and admit her to the hospital. I have known her for years. She is a 52-year-old female, who presents to the emergency room with a history of left hip pain and bilateral knee pain. She states she fell 5 days ago, started having knee pain 2 days afterwards. Hip pain started yesterday. It is sharp, constant, worse with motion. She has been ambulating. She also reports having a syncopal episode today. She passed out while going to her kitchen and her son found her on the floor. No headache. No nauseousness. No vomiting. No focal weakness. No slurred speech, abdominal pain, chest pain, shortness of breath or any other complaint. PAST MEDICAL HISTORY: She has a past medical history of hypertension, diabetes, gastroparesis, COPD, diabetes, colon cancer, pancreatic cancer, arthritis, bone pain, falls, unsteady gait, gastroesophageal reflux, urinary tract infections. She had a tubal ligation. She has history of substance abuse, but not anymore. She had colon cancer. She had a Whipple. FAMILY HISTORY: Hypertension AND diabetes in the family. SOCIAL HISTORY: She still smokes cigarettes. No alcohol. No more drugs. She said she quit. ALLERGIES: SHE IS ALLERGIC TO TYLENOL WITH CODEINE, CODEINE ALLERGY, IODINE, SHE GETS RASH. MEDICATIONS: She takes Neurontin, Lantus, insulin, OxyContin, Percocet 10/325. I am not sure where she is getting those pain medications from. REVIEW OF SYSTEMS: No acute vision or hearing issues. No sore throat. No shortness of breath or cough. No chest pain or palpitations. No nausea, vomiting, constipation, diarrhea. No problems urinating. arthralgias, left hip pain, bilateral knee pain, less worse than right. As far as her skin, she has no ulcers or rashes she admits to. She was dizzy and she passed out. She has syncopal episode. No anxiety or depression. PHYSICAL EXAMINATION: VITAL SIGNS: She has a 98.8 temp, 81 pulse, 17 respiratory rate, 117/74 blood pressure, 96% O2 sat on room air. GENERAL: She is uncomfortable, lying in bed. She is well appearing, nontoxic, fairly comfortable, knee pain and hip pain. Alert and oriented x3. Sugar was 188. HEENT: Head is atraumatic, normocephalic. Extraocular muscles are intact. Pupils equal, reactive to light. Throat is moist. NECK: Supple. HEART: Regular rate. Normal S1, S2. LUNGS: Decreased breath sounds, but clear to auscultation bilaterally. No wheezes. No rhonchi. No rales. ABDOMEN: Soft, nontender. Positive bowel sounds. No guarding. No rebound. No CVA tenderness. EXTREMITIES: Have no edema bilaterally. There was tenderness to the left hip and also the left knee more than the right knee. She is neurovascularly intact. No edema. No swelling. GCS is 15. Cranial nerves II through XII grossly intact. Speech is normal. Fairly normal motor function. SKIN: Warm and dry. No apparent rashes or ulcers. Alert and oriented x3. Thyroid midline. No palpable appreciable lymphadenopathy. LABORATORY DATA: She had multiple x-rays and labs. She has a 142 sodium; potassium 3.4, I replaced the potassium; BUN 15; creatinine 0.7; GFR is greater than 60; sugar is 169; calcium is 10.2; magnesium 1.6; total bili is 0.4; AST is 24; ALT is 20; alk phos 100; lactate dehydrogenase is 348; total creatine kinase is 84; troponin I is less than 0.01; total protein is 7.3, albumin is 4.4, globulin is 2.9, INR is 1.06, white count is 4.1, hemoglobin 12.2, hematocrit 37.5, platelets are 269. She had a hip, pelvis x-ray, which showed no demonstrated fracture or dislocation. She also had a knee x-ray, which showed no demonstrated fracture or dislocation, but there is a left distal femur and proximal tibia bone infarcts. Chest x-ray is pending. IMPRESSION: She is going to be put into observation level of care. She is going to have consults with Neurology and Cardiology and Orthopedics. She will get some tramadol for the pain, back on a regular diabetes and blood pressure medications. Head CAT scan, chest x-ray are pending. Replace the potassium. Physical therapy. She is on observation status for syncope. Mayur Mcclendon DO [facility] # [id number] JE
[2018-06-23] MEDS: Pantoprazole 40 mg EC Tab PO SCH (05:33)
[2018-06-23 07:57] VITALS: RESP 20
[2018-06-23] MEDS: Insulin Reg-LOW-Coverage SC SCH ×4 (08:19→22:21)
--- NOTE | 2018-06-23 08:25 | RAD ---
Date of service: 06/22/2018 HISTORY: admission COMPARISON: 05/30/2018 FINDINGS: LUNGS: No active pulmonary disease. PLEURA: No significant pleural effusion identified, no pneumothorax apparent. CARDIOVASCULAR: Normal. OSSEOUS STRUCTURES: No significant abnormalities. VISUALIZED UPPER ABDOMEN: Normal. OTHER FINDINGS: None. IMPRESSION: No active disease.
--- NOTE | 2018-06-23 08:38 | CT ---
Date of service: 06/23/2018 PROCEDURE: CT HEAD WITHOUT CONTRAST. HISTORY: dizzy COMPARISON: Noncontrast head CT 04/05/2018. TECHNIQUE: Axial computed tomography images were obtained through the head/brain without intravenous contrast. Radiation dose: Total exam DLP = 882.30 mGy-cm. This CT exam was performed using one or more of the following dose reduction techniques: Automated exposure control, adjustment of the mA and/or kV according to patient size, and/or use of iterative reconstruction technique. FINDINGS: HEMORRHAGE: No intracranial hemorrhage. BRAIN: Normal garcia-white matter differentiation and density are appreciated throughout the cerebrum and cerebellum with the brainstem appearing unremarkable as well. There is no mass effect. There is no suspicious extra-axial fluid collection and the midline brain anatomy appears diffusely unremarkable. VENTRICLES: Unremarkable. No hydrocephalus. CALVARIUM: No fracture identified. There is small left parietal exostosis once again evident. PARANASAL SINUSES: A few small osteomas are seen at a few bilateral ethmoid air cells and there is minimal right sphenoid sinusitis. MASTOID AIR CELLS: Unremarkable as visualized. No inflammatory changes. OTHER FINDINGS: None. IMPRESSION: No interval acute intracranial findings. Stable unremarkable noncontrast head CT.
--- NOTE | 2018-06-23 09:54 | CARD ---
APPROVED REPORT Date of service: 06/22/2018 EKG Measurement Heart [id number] <Conclusion> Normal sinus rhythm Possible Left atrial enlargement NSSTW changes No change
[2018-06-23 10:17] LABS: HEMOGLOBIN 13.6 g/dL (12.0-16.0); MEAN CELL VOLUME 77.2 fl (80.0-105.0); MEAN CORPUSCULAR HEMOGLOBIN 25.4 pg (25.0-35.0); MEAN CORPUSCULAR HGB CONC 32.9 g/dl (31.0-37.0); MEAN PLATELET VOLUME 8.7 fl (7.0-11.0); RBC 5.36 10^6/uL (3.5-6.1); RED CELL DISTRIBUTION WIDTH 15.5 % (11.5-14.5); WHITE BLOOD COUNT 4.3 10^3/ul (4.5-11.0)
[2018-06-23 10:27] LABS: ALB/GLOB RATIO 1.4 (1.1-1.8); ALBUMIN 4.8 g/dL (3.0-4.8); ALT/SGPT 20 U/L (7-56); AST/SGOT 16 U/L (14-36); BLOOD UREA NITROGEN 22 mg/dL (7-21); CALCIUM 10.2 mg/dL (8.4-10.5); GFR NON-AFRICAN AMERICAN > 60
[2018-06-23] MEDS: Morphine 2 mg/ml ISec IVP PRN ×4 (10:28→22:29)
[2018-06-23] MEDS: Insulin Detemir 100 units/ml Vial (Levemir) SC SCH (11:57)
--- NOTE | 2018-06-23 12:31 | CP.PCM.CON ---
<Annette Haile - Last Filed: 06/23/18 12:35> History of Present Illness - History of Present Illness History of Present Illness: GI Fellow PGY5 Consult Note This is a 52 year old female with a PMH of colon CA s/p subtotal colectomy, pancreatic CA s/p whipple procedure, uncontrolled IDDM with gastroparesis and who is presenting s/p syncopal episode and recent fall with knee pain. Pt reports she was feeling fine until she got valium in the [place] and started getting dizzy and now N/V, initially ingested food but now only bile. Pt has had multiple prior admissions for intractable N/V and found to have uncontrolled blood glucose at that time. She had an EGD 08/2017 and found to have bile gastritis and gastroparesis, pt was referred to [facility]. She had no dentition and eats regular food including salads and meats at home. She does report following a [facility] as an outpt and her BG at home in <200. ROS: A 12pt ROS was negative except as above PMH: as above PSH: whipple, subtotal colectomy SH: smokes 1/2 to 1 ppd for multiple years, sporadic alcohol, denies illicits FH: Neg for colon cancer Past Patient History - Infectious Disease Hx of Infectious Diseases: None - Tetanus Immunizations Tetanus Immunization: Unknown - Past Social History Smoking Status: Light Smoker < 10 Cigarettes Daily - CARDIAC Hx Cardiac Disorders: Yes Hx Hypertension: Yes - PULMONARY Hx Chronic Obstructive Pulmonary Disease (COPD): Yes - NEUROLOGICAL Hx Neurological Disorder: No - HEENT Hx HEENT Problems: No - RENAL Hx Chronic Kidney Disease: No - ENDOCRINE/METABOLIC Hx Diabetes Mellitus Type 2: Yes - HEMATOLOGICAL/ONCOLOGICAL Hx Blood Disorders: Yes Hx Cancer: Yes (colon/ pancreatic) - INTEGUMENTARY Hx Dermatological Problems: No - MUSCULOSKELETAL/RHEUMATOLOGICAL Hx Arthritis: Yes - GASTROINTESTINAL Hx Gastrointestinal Disorders: Yes Hx Gastroesophageal Reflux: Yes - GENITOURINARY/GYNECOLOGICAL Hx Genitourinary Disorders: Yes Hx Urinary Tract Infection: Yes Other/Comment: Tubal ligation - PSYCHIATRIC Hx Psychophysiologic Disorder: No Hx Substance Use: No (history of substance abuse) Other/Comment: Hx substance abuse treatment - SURGICAL HISTORY Other/Comment: CA Colon - whipple - ANESTHESIA Hx Anesthesia: Yes Hx Anesthesia Reactions: No Hx Malignant Hyperthermia: No Meds Allergies/Adverse Reactions: Allergies Allergy/AdvReac Type Severity Reaction Status Date / Time acetaminophen Allergy RASH Verified 06/22/18 18:27 [From Tylenol-Codeine] codeine Allergy VOMITING Verified 06/22/18 18:27 iodine Allergy RASH Verified 06/22/18 18:27 - Medications Medications: Current Medications Amlodipine Besylate (Norvasc) 5 mg PO DAILY [facility] Last Admin: 06/23/18 09:31 Dose: 5 mg Famotidine (Pepcid) 20 mg PO BID [facility] Last Admin: 06/23/18 09:31 Dose: 20 mg Gabapentin (Neurontin) 100 mg PO BID [facility] PRN Reason: Protocol Last Admin: 06/23/18 09:30 Dose: 100 mg Insulin Detemir (Levemir) 22 unit SC BID [facility] Last Admin: 06/23/18 11:57 Dose: Not Given Insulin Human Regular (Humulin R Low) 0 units SC ACHS [facility] PRN Reason: Protocol Last Admin: 06/23/18 11:56 Dose: 1 units Morphine Sulfate (Morphine) 1 mg IVP Q4H PRN PRN Reason: Pain, moderate (4-7) Last Admin: 06/23/18 10:28 Dose: 1 mg Ondansetron HCl (Zofran Inj) 4 mg IVP Q6H PRN PRN Reason: Nausea/Vomiting Last Admin: 06/23/18 08:29 Dose: 4 mg Pantoprazole Sodium (Protonix Ec Tab) 40 mg PO 0600 [facility] Last Admin: 06/23/18 05:33 Dose: 40 mg Physical Exam - Constitutional Appears: Non-toxic, No Acute Distress - Head Exam Head Exam: ATRAUMATIC, NORMAL INSPECTION, NORMOCEPHALIC - Eye Exam Eye Exam: EOMI, Normal appearance, PERRL Pupil Exam: PERRL - ENT Exam ENT Exam: Mucous Membranes Moist - Neck Exam Neck exam: Positive for: Full Rom, Normal Inspection - Respiratory Exam Respiratory Exam: Clear to Auscultation Bilateral, NORMAL BREATHING PATTERN - Cardiovascular Exam Cardiovascular Exam: REGULAR RHYTHM, RRR, +S1, +S2 - GI/Abdominal Exam GI & Abdominal Exam: Normal Bowel Sounds, Soft. absent: Distended, Firm, Guarding, Organomegaly, Tenderness - Rectal Exam Rectal Exam: absent: Deferred - Extremities Exam Extremities exam: Positive for: full ROM, normal inspection - Neurological Exam Neurological exam: Alert, Oriented x3 - Psychiatric Exam Psychiatric exam: Normal Affect, Normal Mood - Skin Skin Exam: Dry, Intact, Normal Color, Warm Results - Vital Signs Recent Vital Signs: Last Vital Signs Temp 98.6 F 06/23/18 07:56 Pulse 60 06/23/18 09:31 Resp 20 06/23/18 07:56 BP 118/77 06/23/18 09:31 Pulse Ox 100 06/23/18 07:56 - Labs Result Diagrams: 06/23/18 10:00 06/23/18 10:00 Labs: Laboratory Results - last 24 hr 06/22/18 06/22/18 06/22/18 19:15 19:15 19:30 WBC 4.1 L RBC 4.91 Hgb 12.2 Hct 37.5 MCV 76.4 L MCH 24.8 L MCHC 32.5 RDW 15.7 H Plt Count 269 MPV 8.7 Gran % 43.0 L Lymph % (Auto) 48.0 H Chaves % (Auto) 8.3 H Eos % (Auto) 0.5 L Baso % (Auto) 0.2 Gran # 1.76 Lymph # (Auto) 2.0 Chaves # (Auto) 0.3 Eos # (Auto) 0.0 Baso # (Auto) 0.01 PT 12.1 INR 1.06 APTT 27.2 Sodium 142 Potassium 3.4 L Chloride 104 Carbon Dioxide 25 Anion Gap 16 BUN 15 Creatinine 0.7 Est GFR ( Amer) > 60 Est GFR (Non-Af Amer) > 60 POC Glucose (mg/dL) Random Glucose 169 H Calcium 10.2 Magnesium 1.6 L Total Bilirubin 0.4 AST 24 ALT 20 Alkaline Phosphatase 100 Lactate Dehydrogenase 348 Total Creatine Kinase 84 Troponin I < 0.01 Total Protein 7.3 Albumin 4.4 Globulin 2.9 Albumin/Globulin Ratio 1.5 06/23/18 06/23/18 06/23/18 07:27 10:00 10:00 WBC 4.3 L RBC 5.36 Hgb 13.6 Hct 41.4 MCV 77.2 L MCH 25.4 MCHC 32.9 RDW 15.5 H Plt Count 255 MPV 8.7 Gran % Lymph % (Auto) Chaves % (Auto) Eos % (Auto) Baso % (Auto) Gran # Lymph # (Auto) Chaves # (Auto) Eos # (Auto) Baso # (Auto) PT INR APTT Sodium 143 Potassium 4.2 Chloride 105 Carbon Dioxide 27 Anion Gap 16 BUN 22 H Creatinine 0.9 Est GFR ( Amer) > 60 Est GFR (Non-Af Amer) > 60 POC Glucose (mg/dL) 168 H Random Glucose 168 H Calcium 10.2 Magnesium Total Bilirubin 0.5 AST 16 ALT 20 Alkaline Phosphatase 113 Lactate Dehydrogenase Total Creatine Kinase Troponin I Total Protein 8.3 Albumin 4.8 Globulin 3.5 Albumin/Globulin Ratio 1.4 06/23/18 11:20 WBC RBC Hgb Hct MCV MCH MCHC RDW Plt Count MPV Gran % Lymph % (Auto) Chaves % (Auto) Eos % (Auto) Baso % (Auto) Gran # Lymph # (Auto) Chaves # (Auto) Eos # (Auto) Baso # (Auto) PT INR APTT Sodium Potassium Chloride Carbon Dioxide Anion Gap BUN Creatinine Est GFR ( Amer) Est GFR (Non-Af Amer) POC Glucose (mg/dL) 187 H Random Glucose Calcium Magnesium Total Bilirubin AST ALT Alkaline Phosphatase Lactate Dehydrogenase Total Creatine Kinase Troponin I Total Protein Albumin Globulin Albumin/Globulin Ratio Assessment & Plan - Assessment and Plan (Free Text) Assessment: This is a 52yF presenting with complaints of syncopal episode, knee pain and now N/V. 1. N/V 2. Syncopal episode 3. Knee pain 4. uncontrolled BG 5. Gastroparesis 6. Hx of pancreatic ca s/p whipple Plan: -Continue supportive care with pain control and anti-emetics -Recommend tight glycemic control -N/V maybe from medication induced vs gastroparesis -Discussed better nutrition and pureed food for gastroparesis -Antiemetics -EGD 08/2017 with bile gastritis -No plan for endoscopic evaluation -Further medical care per primary team -Will continue to follow closely <Steven Owen - Last Filed: 06/23/18 18:25> Meds - Medications Medications: Current Medications Amlodipine Besylate (Norvasc) 5 mg PO DAILY [facility] Last Admin: 06/23/18 09:31 Dose: 5 mg Famotidine (Pepcid) 20 mg PO BID [facility] Last Admin: 06/23/18 17:05 Dose: 20 mg Gabapentin (Neurontin) 100 mg PO BID [facility] PRN Reason: Protocol Last Admin: 06/23/18 17:05 Dose: 100 mg Insulin Detemir (Levemir) 22 unit SC BID [facility] Last Admin: 06/23/18 11:57 Dose: Not Given Insulin Human Regular (Humulin R Low) 0 units SC ACHS [facility] PRN Reason: Protocol Last Admin: 06/23/18 17:02 Dose: Not Given Morphine Sulfate (Morphine) 1 mg IVP Q4H PRN PRN Reason: Pain, moderate (4-7) Last Admin: 06/23/18 14:42 Dose: 1 mg Ondansetron HCl (Zofran Inj) 4 mg IVP Q6H PRN PRN Reason: Nausea/Vomiting Last Admin: 06/23/18 08:29 Dose: 4 mg Pantoprazole Sodium (Protonix Ec Tab) 40 mg PO 0600 [facility] Last Admin: 06/23/18 05:33 Dose: 40 mg Results - Vital Signs Recent Vital Signs: Last Vital Signs Temp 97.4 F L 06/23/18 16:56 Pulse 73 06/23/18 16:56 Resp 20 06/23/18 16:56 BP 128/89 06/23/18 16:56 Pulse Ox 98 06/23/18 16:56 - Labs Result Diagrams: 06/23/18 10:00 06/23/18 10:00 Labs: Laboratory Results - last 24 hr 06/22/18 06/22/18 06/22/18 19:15 19:15 19:30 WBC 4.1 L RBC 4.91 Hgb 12.2 Hct 37.5 MCV 76.4 L MCH 24.8 L MCHC 32.5 RDW 15.7 H Plt Count 269 MPV 8.7 Gran % 43.0 L Lymph % (Auto) 48.0 H Chaves % (Auto) 8.3 H Eos % (Auto) 0.5 L Baso % (Auto) 0.2 Gran # 1.76 Lymph # (Auto) 2.0 Chaves # (Auto) 0.3 Eos # (Auto) 0.0 Baso # (Auto) 0.01 PT 12.1 INR 1.06 APTT 27.2 Sodium 142 Potassium 3.4 L Chloride 104 Carbon Dioxide 25 Anion Gap 16 BUN 15 Creatinine 0.7 Est GFR ( Amer) > 60 Est GFR (Non-Af Amer) > 60 POC Glucose (mg/dL) Random Glucose 169 H Calcium 10.2 Magnesium 1.6 L Total Bilirubin 0.4 AST 24 ALT 20 Alkaline Phosphatase 100 Lactate Dehydrogenase 348 Total Creatine Kinase 84 Troponin I < 0.01 Total Protein 7.3 Albumin 4.4 Globulin 2.9 Albumin/Globulin Ratio 1.5 06/23/18 06/23/18 06/23/18 07:27 10:00 10:00 WBC 4.3 L RBC 5.36 Hgb 13.6 Hct 41.4 MCV 77.2 L MCH 25.4 MCHC 32.9 RDW 15.5 H Plt Count 255 MPV 8.7 Gran % Lymph % (Auto) Chaves % (Auto) Eos % (Auto) Baso % (Auto) Gran # Lymph # (Auto) Chaves # (Auto) Eos # (Auto) Baso # (Auto) PT INR APTT Sodium 143 Potassium 4.2 Chloride 105 Carbon Dioxide 27 Anion Gap 16 BUN 22 H Creatinine 0.9 Est GFR ( Amer) > 60 Est GFR (Non-Af Amer) > 60 POC Glucose (mg/dL) 168 H Random Glucose 168 H Calcium 10.2 Magnesium Total Bilirubin 0.5 AST 16 ALT 20 Alkaline Phosphatase 113 Lactate Dehydrogenase Total Creatine Kinase Troponin I Total Protein 8.3 Albumin 4.8 Globulin 3.5 Albumin/Globulin Ratio 1.4 06/23/18 06/23/18 11:20 16:16 WBC RBC Hgb Hct MCV MCH MCHC RDW Plt Count MPV Gran % Lymph % (Auto) Chaves % (Auto) Eos % (Auto) Baso % (Auto) Gran # Lymph # (Auto) Chaves # (Auto) Eos # (Auto) Baso # (Auto) PT INR APTT Sodium Potassium Chloride Carbon Dioxide Anion Gap BUN Creatinine Est GFR ( Amer) Est GFR (Non-Af Amer) POC Glucose (mg/dL) 187 H 129 H Random Glucose Calcium Magnesium Total Bilirubin AST ALT Alkaline Phosphatase Lactate Dehydrogenase Total Creatine Kinase Troponin I Total Protein Albumin Globulin Albumin/Globulin Ratio Attending/Attestation - Attestation I have personally seen and examined this patient.: Yes I have fully participated in the care of the patient.: Yes I have reviewed all pertinent clinical information: Yes Notes (Text): 06/23/18 18:19 This is a 52 yr old F presenting with complaints of syncopal episode, knee pain and now resolving likely due to gastroparesis and medication induced after being given valium. Symptoms resolving now. Advance diet as tolerated. Strict glycemic control. No further GI work up required. Will sign off now.
--- NOTE | 2018-06-23 15:02 | CON ---
Copied To: Brenton Jose MD Attending MD: Brenton Jose MD DATE: 06/23/2018 CARDIOLOGY CONSULTATION HISTORY: The patient is a 52-year-old woman, who presents with a syncopal episode. The patient's past medical history includes diabetes mellitus, hypertension, which she is treated with insulin as well as Norvasc. In addition, she is on chronic oxycodone. She has had documentation in the past to be on multiple pain medications including mixed in with benzodiazepines. The patient denies chest pain, denies shortness of breath. The patient's previous cardiac workup has included a recent stress test performed earlier this year, which shows no ischemia with good LV function. Echocardiogram shows no LV outflow obstruction. REVIEW OF SYSTEMS: The patient is free of cardiac symptoms. She complains of weakness. PHYSICAL EXAMINATION: GENERAL: The patient is in no acute distress. VITAL SIGNS: Blood pressure is 118/77, the heart rate is in the 60s. NECK: Negative JVD. LUNGS: Without rales. HEART: Reveals S1, S2. EXTREMITIES: Without edema. LABORATORY DATA: EKG shows no acute changes. Hemoglobin is 12.2. Troponins are negative x1. Glucose is 169. IMPRESSION: 1. No cardiac identifiable cause of her syncope. 2. Diabetes mellitus. 3. Normal left ventricular function. 4. Hypertension. 5. Multiple pain medications including oxycodone as well as intermittent benzodiazepine. PLAN: Given these findings, we will need to rule out poly pharmaceutical drug use as the cause of her syncope. There is no cardiac cause noted. We will discontinue telemetry today. Brenton Jose MD
--- NOTE | 2018-06-23 23:12 | CON ---
Copied To: Sergey Rao MD Attending MD: Sergey Rao MD DATE: 06/23/2018 HISTORY OF PRESENT ILLNESS: This is a 52-year-old black female with past medical history of hypertension, diabetes, gastroparesis, COPD, colon and pancreatic cancer, arthritis and came in through the emergency room with pain in left hip and also fell 5 days ago and started having knee pain for 2 days and the patient is ambulating in the hallway. The patient felt like passing out, fell, and her son found her on the floor. No weakness. PAST MEDICAL HISTORY: As above. SOCIAL HISTORY: Smoke cigarettes. Does not drink. ALLERGIES: TO TYLENOL, CODEINE AND IODINE. MEDICATIONS: Neurontin, Lantus insulin, OxyContin, Percocet. REVIEW OF SYSTEMS: A 10-point review of systems was negative except passing out spell. No tongue bite. No urinary incontinence. PHYSICAL EXAMINATION: HEENT: Normocephalic, atraumatic. NECK: Supple. NEUROLOGIC: Awake, oriented to self and place. Cranial nerves II through XII were tested. Pupils reactive. EOM intact. Visual carlos full. No facial asymmetry. Tongue midline. Motor examination: Moves all the extremities equally. Tone normal. Deep tendon reflexes 1+. Plantars downgoing. Sensory appears intact. Cerebellar gait, ambulating in the hallway. IMPRESSION: Syncope, less likely seizure and multiple medical problem like diabetes, hypertension, chronic obstructive pulmonary disease and CAT scan of the head was done which was reported negative. We will do an electroencephalogram. Further management after the results of above tests. Sergey Rao MD
[2018-06-24] MEDS: Morphine 2 mg/ml ISec IVP PRN ×2 (02:27→06:40)
[2018-06-24] MEDS: Pantoprazole 40 mg EC Tab PO SCH (05:03)
[2018-06-24] MEDS: Insulin Reg-LOW-Coverage SC SCH (07:46)
--- NOTE | 2018-06-24 08:03 | CON ---
Copied To: Frank King DO Attending MD: Frank King DO DATE: 06/23/2018 ORTHOPEDIC CONSULT REPORT HISTORY OF PRESENT ILLNESS: A 52-year-old female, Marizol Parker, came in the hospital with a complaint of syncope and weakness of the lower extremities and past history of falling several times. Last week, she fell on the right knee and abraiding the prepatellar region [id number] area, which is dry and not infected, but the left knee, she has more pain than the right and she has inncedental finding of bone islands, more in the tibia and femur, which was hereditary. Calcification of the marrow of the metaphysis just above the knee joint line. These are usually benign and incidental findings. We will just get an MRI to investigate the nature of her left knee pain to see if it is intraarticular problem or marrow problem and this could help us. We will just do one at a time in case the markings of the x-rays are confused. The left knee will be done first and I will send her to physical therapy to get strength and to ambulate with more confidence and she should be allowed out of bed and I will evaluate her again after the x-rays and MRI are done. FINAL DIAGNOSES: Weakness of both knees with incidental finding of bone islands of the left knee,at the tibia and distalfemur.. Frank King DO MTDD
[2018-06-24 08:22] VITALS: BP 130/81; PULSE 65; TEMP 98.2; O2SAT 97
--- NOTE | 2018-06-24 09:13 | DS ---
Copied To: Mayur Mcclendon DO Attending MD: Mayur Mcclendon DO HISTORY OF PRESENT ILLNESS: I saw her sitting out of bed to chair today. She came in to the hospital with syncopal and fall, knee issue, now she is nauseous. I am hoping that she can go home later this afternoon. She does look better than before and the dizziness has a kind of left her. The CAT scan of the brain did not show anything acute. There is an issue with her x-ray of the knee, some kind of a distal femur bone infarcts and I want to get the opinion of Orthopedics. There is also a consult with Neurology and Cardiology about her dizziness and fall. She is doing better now. I also wanted Physical Therapy to see her. I also gave Zofran for the nauseousness that she had and I stopped the Toradol which did not do anything and gave her some morphine, but if everything looks so well and do anything, I will try and discharge her this afternoon if it will be okay. Presently she is sitting out of bed to chair; looking at me; not nauseous; not dizzy; comfortable; will ambulate to the bathroom, in pain, but she did it okay. PHYSICAL EXAMINATION: VITAL SIGNS: She has 98.6 temperature, 59 pulse, 118/77 blood pressure, 20 respiratory rate, 100% O2 sat on room air. HEAD: Atraumatic, normocephalic. HEART: Regular rate. LUNGS: Clear to auscultation. ABDOMEN: Soft. EXTREMITIES: No edema. A little painful in the knee, but she fell and bruised it. MEDICATIONS: She is on insulin, Levemir, morphine, Neurontin, Norvasc, Pepcid, Protonix and Zofran. LABORATORY DATA: She has 142 sodium, 3.4 potassium, that was yesterday. No labs for today 168 sugar. Troponin I was less than 0.01. She has a 4.1 white count, 12.2 hemoglobin, 269 platelets yesterday. ASSESSMENT AND PLAN: Awaiting for Neurology, Cardiology, Physical Therapy, Orthopedics to get their opinion, and if everything goes well, we are going to discharge her later this afternoon, hoping she eats breakfast well with the Zofran, does not throw up, and no more dizziness happens. Marizol Parker came in for dizziness and fall. Mayur Mcclendon DO [facility] # [id number]
[2018-06-24] MEDS: Insulin Detemir 100 units/ml Vial (Levemir) SC SCH (09:17)
--- NOTE | 2018-06-24 10:05 | DS ---
Copied To: Mayur Mcclendon DO Attending MD: Mayur Mcclendon DO She was walking around the [place] this morning. She is feeling better. She is hungry. She wants to eat breakfast and she needs to go home, she tells me. She is on insulin coverage, Levemir, Neurontin, Norvasc, Pepcid, Protonix, Zofran. I stopped morphine. When she leaves here, she will go back on her pain medicines, Percocets, Norvasc, insulin Lantus, Neurontin, Nexium, Zantac and OxyContin. OBJECTIVE: VITAL SIGNS: She has a 98.2 temperature, 65 pulse, 130/81 blood pressure, 20 respiratory rate, 97% O2 sat on room air. HEENT: Head is atraumatic, normocephalic. HEART: Regular rate. LUNGS: Decreased breath sounds, but clear. ABDOMEN: Soft, nontender. Positive bowel sounds. No guarding, no rebound, no CVA tenderness. Nice and soft this morning. EXTREMITIES: No edema. She is walking better. DATA: She has a 4.3 white count, 13.6 hemoglobin, 255 platelets. Sodium 143, potassium 4.2, BUN 22, creatinine 0.9. Sugar is 129. Calcium is 10.2, AST 16, ALT is 20, alkaline phosphatase 113. Troponin I was less than 0.01. She was seen by Cardiology, said it is not a Cardiology cause , Orthopedics felt it was an incidental findings, GI felt it could have been a little bit of gastroparesis and Neuro did not think it was neurological cause for that feeling, could be diabetes related. So we are going to discharge her home on regular medications, she eats well for breakfast, she said she is hungry and should be able to be discharged today. Mayur Mcclendon DO MTDD
--- NOTE | 2018-06-24 11:08 | MRI ---
Date of service: 06/24/2018 PROCEDURE: MRI Left Knee HISTORY: Pain. COMPARISON: None available. TECHNIQUE: Multiecho multiplanar sequences were performed through the left knee. FINDINGS: ANTERIOR CRUCIATE LIGAMENT:: Intact. POSTERIOR CRUCIATE LIGAMENT:: Intact. MEDIAL MENISCUS:: Intact. LATERAL MENISCUS:: Intact. MEDIAL COLLATERAL LIGAMENT:: Intact. LATERAL COLLATERAL LIGAMENT COMPLEX:: Intact. QUADRICEPS TENDON:: Intact. PATELLAR TENDON:: Intact. CARTILAGE:: Intact. JOINT FLUID:: Intact. OSSEOUS STRUCTURES:: Large bone infarcts are seen in the distal femur and proximal tibia OTHER FINDINGS: None. 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 The knee joint is otherwise unremarkable.
--- NOTE | 2018-06-24 13:17 | EEG ---
Copied To: Silvio Rao MD Attending MD: Silvio Rao MD DATE: 06/23/2018 CONDITION OF THE RECORDING: Drowsy. DIAGNOSIS: Near syncope. MEDICATIONS: Reviewed by nurse reconciliation sheet. INTERPRETATION: This is a 16-channel international recording. The background activity of this tracing was composed of 8-1/2 cycles per second. There was small amount of beta activity of 16 to 20 cycles per second seen in this recording. There was small amount of theta activity of 5 to 7 cycles per second seen in this tracing. Drowsiness was characterized by the mixed beta and theta activities. The sleep was characterized by vertex transient waves, sleep spindles and bilateral slowing. Photic stimulation showed no change in the tracing. No paroxysmal activities were noted in this recording. CONCLUSIONS: This is a normal drowsy EEG. No evidence of any epileptiform activity. Please clinically correlate. Silvio Rao MD
== END 2018-06-24 11:59 | disposition home or self-care (01) ==
LOC: ED 17:34 → ERH 19:07 → 3RNO 21:30
PROVIDERS: ADMIT Family Medicine; ATTEND Family Medicine
DX: R55 Syncope and collapse (principal); R42 Dizziness and giddiness; F17.210 Nicotine dependence, cigarettes, uncomplicated; I10 Essential (primary) hypertension; E11.43 Type 2 diabetes mellitus with diabetic autonomic (poly)neuropathy; K31.84 Gastroparesis; K29.60 Other gastritis without bleeding; J44.9 Chronic obstructive pulmonary disease, unspecified; K21.9 Gastro-esophageal reflux disease without esophagitis; Z85.07 Personal history of malignant neoplasm of pancreas; Z85.038 Personal history of other malignant neoplasm of large intestine; Z79.4 Long term (current) use of insulin; Z88.5 Allergy status to narcotic agent; Z82.49 Family history of ischemic heart disease and other diseases of the circulatory system; Z83.3 Family history of diabetes mellitus; Z87.440 Personal history of urinary (tract) infections

== ENCOUNTER 2018-07-19 10:35 | Emergency (ER) | payer BC, OTHER ==
[2018-07-19 13:11] VITALS: BMI 31.6
[2018-07-19 13:25] VITALS: RESP 18
[2018-07-19 14:02] LABS: URINE BILIRUBIN NEGATIVE (NEGATIVE); URINE BLOOD NEGATIVE (NEGATIVE); URINE GLUCOSE (UA) NEGATIVE (NEGATIVE); URINE LEUKOCYTE ESTERASE NEGATIVE Leu/uL (NEGATIVE); URINE PROTEIN NEGATIVE mg/dL (<30 mg/dL); URINE UROBILINOGEN 0.2 E.U./dL (<1 E.U./dL)
[2018-07-19 14:03] LABS: URINE APPEARANCE CLEAR (CLEAR); URINE COLOR YELLOW (YELLOW)
[2018-07-19 14:43] VITALS: BP 142/76; PULSE 52; TEMP 97.6; O2SAT 98
== END 2018-07-19 14:39 | disposition home or self-care (01) ==
LOC: ED 10:35
DX: R10.9 Unspecified abdominal pain (principal); R11.10 Vomiting, unspecified; R19.7 Diarrhea, unspecified; I10 Essential (primary) hypertension; E11.9 Type 2 diabetes mellitus without complications

== ENCOUNTER 2018-07-19 19:28 | Observation (INO) | payer BC, OTHER ==
[2018-07-19 19:28] VITALS: BMI 31.6
[2018-07-19] MEDS ORDERED: Sodium Chloride 0.9% 1,000 ML IV SCH (20:15)
--- NOTE | 2018-07-19 20:18 | ED PDOC ---
Arrival/HPI <Jami Patterson - Last Filed: 07/20/18 05:28> <Sidney Verdin - Last Filed: 07/20/18 21:59> - General Chief Complaint: GI Problem Time Seen by Provider: 07/19/18 19:30 - History of Present Illness Narrative History of Present Illness (Text): 07/19/18 20:11 Pt is a 52 yo F with pmhx of HTN, IDDM, COPD, colon ca, and chronic neck and back pain who presents today for vomiting, diarrhea, and abdominal pain. She states that she began vomiting on wednesday night (07/16) and has had 10 bouts of bilious non-bloody vomitus since then. She also states that the abdominal pain also started on wednesday night(07/16). She states that the abdominal pain is past a 10, and is a crampy pain that is diffusely localized to the R and LUQ without radiation to the back. She states that she takes oxycontin 30 TID and percocet 10/325 Q4 for the pain and she sees Dr. Regan for pain management. She also states that she has had diarrhea since wednesday (07/17), which she had 5 bouts of today. The stools were non-bloody. She denies any fevers, chills, weight loss, headache, change in vision, cough, SOB, chest pain, palpitations, vomiting, constipation, dysuria, frequency or hematuria. She does admit to nausea and abdominal pain at this time. PMHx: HTN, IDDM, COPD, Asthma, colon ca, chronic neck and back pain PSHx: Whipple procedure Meds: Lantus 22 units, humalog R 5 units, pain meds mentioned above All: Tylenol, codiene - Vomiting Social: Current 1/2 ppd for 35 years, no illicit drug use or etoh use Fam Hx: Denies PMD: Dr. Mcclendon 07/19/18 20:19 (Jami Patterson) Past Medical History - Past History Past History: Non-Contributing - Infectious Disease Hx of Infectious Diseases: None - Tetanus Immunization Tetanus Immunization: Unknown - Reproductive Menopause: Yes - Cardiac Hx Cardiac Disorders: Yes Hx Hypertension: Yes - Pulmonary Hx Asthma: Yes Hx Chronic Obstructive Pulmonary Disease (COPD): Yes - Neurological Hx Neurological Disorder: No - HEENT Hx HEENT Disorder: No - Renal Hx Renal Disorder: No - Endocrine/Metabolic Hx Diabetes Mellitus Type 2: Yes - Hematological/Oncological Hx Blood Disorders: Yes Hx Cancer: Yes (colon/ pancreatic) - Integumentary Hx Dermatological Disorder: No - Musculoskeletal/Rheumatological Hx Arthritis: Yes - Gastrointestinal Hx Gastrointestinal Disorders: Yes Hx Gastroesophageal Reflux: Yes - Genitourinary/Gynecological Hx Genitourinary Disorders: Yes Hx Urinary Tract Infection: Yes Other/Comment: Tubal ligation - Psychiatric Hx Psychophysiologic Disorder: No Hx Substance Use: No (history of substance abuse) Other/Comment: Hx substance abuse treatment - Surgical History Other/Comment: CA Colon - whipple - Anesthesia Hx Anesthesia: Yes Hx Anesthesia Reactions: No Hx Malignant Hyperthermia: No - Suicidal Assessment Feels Threatened In Home Enviroment: No <Jami Patterson - Last Filed: 07/20/18 05:28> - Provider Review Nursing Documentation Reviewed: Yes <Sidney Verdin - Last Filed: 07/20/18 21:59> Family/Social History Family/Social History: No Known Family HX Smoking Status: Light Smoker < 10 Cigarettes Daily Hx Alcohol Use: No Hx Substance Use: No (history of substance abuse) Hx Substance Use Treatment: Yes <Jami Patterson - Last Filed: 07/20/18 05:28> Allergies/Home Meds <Jami Patterson - Last Filed: 07/20/18 05:28> <Sidney Verdin - Last Filed: 07/20/18 21:59> Allergies/Adverse Reactions: Allergies acetaminophen [From Tylenol-Codeine] Allergy (Verified 06/22/18 18:27) RASH codeine Allergy (Verified 06/22/18 18:27) VOMITING iodine Allergy (Verified 06/22/18 18:27) RASH Home Medications: Home Meds Medication Instructions Recorded Confirmed Gabapentin [Neurontin] 100 mg PO BID 12/12/17 06/22/18 Insulin Glargine, Recombina 22 unit SQ BID 03/10/18 06/22/18 [Lantus] Insulin Human Regular-MED [HumuLIN 5 units SC TID 03/10/18 06/22/18 R MED] Oxycodone HCl [Oxycontin] 30 mg PO Q6 PRN 06/22/18 06/22/18 Oxycodone HCl/Acetaminophen 1 each PO PRN PRN 06/22/18 06/22/18 [Percocet 10-325 mg Tablet] Review of Systems - Physician Review All systems were reviewed & negative as marked: Yes - Review of Systems Gastrointestinal: Abdominal Pain (RUQ, LUQ diffuse), Diarrhea, Nausea, Vomiting. absent: Hematochezia, Hematemesis Genitourinary Female: absent: Dysuria, Frequency, Hematuria <Jami Patterson - Last Filed: 07/20/18 05:28> Physical Exam Vital Signs Reviewed: Yes Temperature: Afebrile Blood Pressure: Normal Pulse: Regular Respiratory Rate: Normal Appearance: Positive for: Well-Appearing, Non-Toxic, Comfortable Pain Distress: Mild Mental Status: Positive for: Alert and Oriented X 3 - Systems Exam Head: Present: Atraumatic, Normocephalic Pupils: Present: PERRL Extroacular Muscles: Present: EOMI Mouth: Present: Dry Respiratory/Chest: Present: Clear to Auscultation, Decreased Breath Sounds. No: Respiratory Distress, Accessory Muscle Use Cardiovascular: Present: Regular Rate and Rhythm, Normal S1, S2. No: Murmurs, Irregular Rhythm, Gallop Abdomen: Present: Tenderness (present in the R and LUQ that is present upon palpation.), Normal Bowel Sounds. No: Distention, Peritoneal Signs, Rebound, Guarding, McBurney's Point Tender Lower Extremity: Present: Normal Inspection, NORMAL PULSES. No: Edema, CALF TENDERNESS Neurological: Present: GCS=15, CN II-XII Intact, Speech Normal Skin: Present: Warm, Dry, Normal Color. No: Rashes Psychiatric: Present: Alert, Oriented x 3, Normal Insight, Normal Concentration <Girma Pattersonmad - Last Filed: 07/20/18 05:28> Vital Signs Temp Pulse Resp BP Pulse Ox 07/20/18 00:07 58 L 18 131/65 100 07/19/18 19:35 98.8 F 55 L 18 126/98 H 100 ED Course and Treatment: Impression: Pt seen and evaluated with medical registrar. Pt, whose past medical history includes hypertension, IDDM, COPD, colon cancer, chronic neck/back pain, presented for vomiting, diarrhea, and abdominal pain. Aware and agrees with HPI, clinical findings, plan, and management. Plan: -- Labs, lipase -- IV fluids -- Morphine -- Zofran -- Reassess and disposition Case discussed with Dr. Mcclendon, who is aware and agrees with plan. Accepts pt in to his service. Pt will go to [facility] observation for gastroparesis. (Jami Patterson) - Lab Interpretations Lab Results: 07/19/18 21:21 07/19/18 21:21 Lab Results 07/19/18 21:21: Sodium 140, Potassium 3.9, Chloride 103, Carbon Dioxide 28, Anion Gap 12, BUN 11, Creatinine 0.7, Est GFR ( Amer) > 60, Est GFR (Non- Af Amer) > 60, Random Glucose 140 H, Calcium 9.6, Phosphorus 4.3, Magnesium 1.6 L, Total Bilirubin 0.4, AST 21, ALT 13, Alkaline Phosphatase 87, Troponin I < 0.01, Total Protein 7.1, Albumin 4.2, Globulin 3.0, Albumin/Globulin Ratio 1.4, Lipase 54 07/19/18 21:21: WBC 5.0, RBC 4.44, Hgb 11.2 L D, Hct 34.9 L, MCV 78.6 L, MCH 25.2, MCHC 32.1, RDW 15.7 H, Plt Count 249, MPV 9.0 07/19/18 21:15: PT 12.4, INR 1.08, APTT 24.1 L - Medication Orders Current Medication Orders: Discontinued Medications Amlodipine Besylate (Norvasc) 5 mg PO DAILY [facility] Last Admin: 07/20/18 10:03 Dose: Not Given Non-Admin Reason: Patient Refused Sodium Chloride (Sodium Chloride 0.9%) 1,000 mls @ 100 mls/hr IV .Q10H NADAY Last Admin: 07/19/18 21:24 Dose: 100 mls/hr eMAR Start Stop Document 07/19/18 21:24 AD (Rec: 07/19/18 21:25 AD [id number]) Intravenous Solution Start Date 07/19/18 Start Time 21:25 Sodium Chloride (Sodium Chloride 0.9%) 1,000 mls @ 100 mls/hr IV .Q10H STA Stop: 07/20/18 08:43 Last Admin: 07/19/18 23:06 Dose: 100 mls/hr eMAR Start Stop Document 07/19/18 23:06 AD (Rec: 07/19/18 23:06 AD [id number]) Intravenous Solution Start Date 07/19/18 Start Time 23:06 Insulin Human Regular (Humulin R Low) 0 units SC ACHS [facility]; Protocol Last Admin: 07/20/18 17:10 Dose: 1 unit MAR Blood Glucose Document 07/20/18 17:10 EP (Rec: 07/20/18 17:11 EP [facility] [id number]) Blood Glucose Finger Stick Blood Glucose (70-120) 17 Subcutaneous Administrations Document 07/20/18 17:10 EP (Rec: 07/20/18 17:11 EP [facility] [id number]) Charges for Administration # of Subcutaneous Administrations 1 Magnesium Oxide (Mag-Ox) 400 mg PO STAT STA Stop: 07/20/18 00:58 Last Admin: 07/20/18 01:31 Dose: 400 mg Morphine Sulfate (Morphine) 2 mg IVP STAT STA Stop: 07/19/18 21:33 Last Admin: 07/19/18 21:39 Dose: 2 mg MAR Pain Assessment Document 07/19/18 21:39 AD (Rec: 07/19/18 21:40 AD [id number]) Pain Reassessment Is this a pain reassessment? No Presence of Pain Presence of Pain Yes Pain Scale Used Protocol: PSCALES Pain Scale Used Numeric Location Pain Location Body Site Abdomen Description Intensity of Pain at present 8 Pain Behavior Facial Grimacing IVP Administration Document 07/19/18 21:39 AD (Rec: 07/19/18 21:40 AD [id number]) Charges for Administration # of IVP Administrations 1 Morphine Sulfate (Morphine) 2 mg IVP STAT STA Stop: 07/20/18 00:58 Last Admin: 07/20/18 01:31 Dose: 2 mg MAR Pain Assessment Document 07/20/18 01:31 BR (Rec: 07/20/18 01:31 BR [id number]) Pain Reassessment Is this a pain reassessment? No Sleep Is patient sleeping during reassessment? No Presence of Pain Presence of Pain Yes Location Pain Location Body Site Abdomen IVP Administration Document 07/20/18 01:31 BR (Rec: 07/20/18 01:31 BR [id number]) Charges for Administration # of IVP Administrations 1 Morphine Sulfate (Morphine) 2 mg IVP STAT STA Stop: 07/20/18 05:30 Last Admin: 07/20/18 05:39 Dose: 2 mg MAR Pain Assessment Document 07/20/18 05:39 BR (Rec: 07/20/18 05:40 BR [facility] [id number]) Pain Reassessment Is this a pain reassessment? No Sleep Is patient sleeping during reassessment? No Presence of Pain Presence of Pain Yes IVP Administration Document 07/20/18 05:39 BR (Rec: 07/20/18 05:40 BR [facility] [id number]) Charges for Administration # of IVP Administrations 1 Ondansetron HCl (Zofran Inj) 4 mg IVP STAT STA Stop: 07/19/18 20:10 Last Admin: 07/19/18 21:25 Dose: 4 mg IVP Administration Document 07/19/18 21:25 AD (Rec: 07/19/18 21:25 AD [id number]) Charges for Administration # of IVP Administrations 1 Ondansetron HCl (Zofran Inj) 4 mg IVP Q6H PRN PRN Reason: Nausea/Vomiting Last Admin: 07/20/18 09:53 Dose: 4 mg IVP Administration Document 07/20/18 09:53 EP (Rec: 07/20/18 09:53 EP [facility] [id number]) Charges for Administration # of IVP Administrations 1 Oxycodone HCl (Oxycontin Extended Release Tab) 30 mg PO Q6 PRN PRN Reason: Pain, moderate (4-7) Stop: 07/23/18 07:42 Oxycodone HCl (Oxycodone Immediate Release Tab) 30 mg PO Q6H PRN PRN Reason: Pain, moderate (4-7) Last Admin: 07/20/18 16:20 Dose: 30 mg MAR Pain Assessment Document 07/20/18 16:20 EP (Rec: 07/20/18 16:20 EP [facility] [id number]) Pain Reassessment Is this a pain reassessment? No Sleep Is patient sleeping during reassessment? No Presence of Pain Presence of Pain Yes Pain Scale Used Protocol: PSCALES Pain Scale Used Numeric Description Intensity of Pain at present 7 Re-Assess: MAR Pain Assessment Document 07/20/18 17:20 EP (Rec: 07/20/18 18:18 EP [id number]) Pain Reassessment Is this a pain reassessment? Yes Sleep Is patient sleeping during reassessment? No Presence of Pain Presence of Pain No Oxycodone/Acetaminophen (Percocet 10/325 Mg Tab) 1 tab PO Q6H PRN PRN Reason: Pain, severe (8-10) Pantoprazole Sodium (Protonix Inj) 40 mg IVP DAILY [facility] Last Admin: 07/20/18 09:52 Dose: 40 mg IVP Administration Document 07/20/18 09:52 EP (Rec: 07/20/18 09:52 EP [facility] [id number]) Charges for Administration # of IVP Administrations 1 Disposition/Present on Arrival - Present on Arrival Any Indicators Present on Arrival: No History of DVT/PE: No History of Uncontrolled Diabetes: Yes Urinary Catheter: No History of Decub. Ulcer: No History Surgical Site Infection Following: None - Disposition Have Diagnosis and Disposition been Completed?: Yes Disposition Time: 00:30 <Jami Patterson - Last Filed: 07/20/18 05:28> <Sidney Verdin - Last Filed: 07/20/18 21:59> - Disposition Diagnosis: Gastroparesis Disposition: HOSPITALIZED Condition: FAIR
[2018-07-19] MEDS ORDERED: Morphine 2 mg/ml ISec IVP STA (21:32)
[2018-07-19 21:34] LABS: HEMOGLOBIN 11.2 g/dL (12.0-16.0); MEAN CELL VOLUME 78.6 fl (80.0-105.0); MEAN CORPUSCULAR HEMOGLOBIN 25.2 pg (25.0-35.0); MEAN CORPUSCULAR HGB CONC 32.1 g/dl (31.0-37.0); RBC 4.44 10^6/uL (3.5-6.1); RED CELL DISTRIBUTION WIDTH 15.7 % (11.5-14.5)
[2018-07-19 21:57] LABS: ALB/GLOB RATIO 1.4 (1.1-1.8); ALBUMIN 4.2 g/dL (3.0-4.8); ALT/SGPT 13 U/L (7-56); AST/SGOT 21 U/L (14-36); BLOOD UREA NITROGEN 11 mg/dL (7-21); CALCIUM 9.6 mg/dL (8.4-10.5); GFR NON-AFRICAN AMERICAN > 60; LIPASE 54 U/L (23-300)
[2018-07-19] MEDS ORDERED: Sodium Chloride 0.9% 1,000 ML IV STA (22:44)
[2018-07-20] MEDS ORDERED: Morphine 2 mg/ml ISec IVP STA ×2 (00:57→05:29)
[2018-07-20] MEDS ORDERED: Magnesium Oxide 400 mg Tab UD PO STA (00:57)
[2018-07-20 05:16] LABS: TROPONIN I < 0.01 ng/mL
[2018-07-20 05:19] LABS: INR 1.08; PARTIAL THROMBOPLASTIN TIME 24.1 Seconds (25.1-36.5); PROTHROMBIN TIME 12.4 SECONDS (9.4-12.5)
[2018-07-20] MEDS ORDERED: oxyCODONE 10 mg ER Tab (oxyCONTIN) PO PRN (07:41)
[2018-07-20] MEDS ORDERED: Oxycodone/Acetaminophen 10/325 mg Tab PO PRN ×2 (07:41→07:49)
[2018-07-20 08:12] VITALS: RESP 18
[2018-07-20 08:28] LABS: ALB/GLOB RATIO 1.4 (1.1-1.8); ALBUMIN 3.7 g/dL (3.0-4.8); ALT/SGPT 19 U/L (7-56); AST/SGOT 14 U/L (14-36); BLOOD UREA NITROGEN 10 mg/dL (7-21); CALCIUM 8.7 mg/dL (8.4-10.5); GFR NON-AFRICAN AMERICAN > 60
--- NOTE | 2018-07-20 09:35 | US ---
Date of service: 07/20/2018 HISTORY: Gastroparesis and abdominal pain. COMPARISON: 11/15/2017 TECHNIQUE: Sonographic evaluation of the abdomen. FINDINGS: LIVER: Measures 17.0 cm. Hepatopedal blood flow. Fatty infiltration manifest ultrasonographically as increased echogenicity of the liver parenchyma. No mass. No intrahepatic bile duct dilatation. GALLBLADDER: Status post cholecystectomy. No abnormality is seen in the gallbladder fossa. COMMON BILE DUCT: Measures 2.97 mm. No stones. No dilatation. PANCREAS: Obscured by overlying bowel gas. Non diagnostic assessment of the pancreas. RIGHT KIDNEY: Measures 4.2 x 11.4cm. Normal echogenicity. No calculus, mass, or hydronephrosis. LEFT KIDNEY: Measures 4.9 x 10.5cm. Normal echogenicity. No calculus, mass, or hydronephrosis. SPLEEN: Normal in size and contour. No mass. AORTA: No aneurysmal dilatation. IVC: Unremarkable. OTHER FINDINGS: None. IMPRESSION: No acute findings related to/accounting for the clinical presentation. Additional benign and/or incidental findings described above. No significant interval changes identified. Limitations of the current examination: Nonvisualization of the pancreas.
[2018-07-20] MEDS: Insulin Reg-LOW-Coverage SC SCH ×4 (09:53→17:10)
[2018-07-20] MEDS: oxyCODONE 10 mg Immediate Release Tab PO PRN ×2 (09:53→16:20)
--- NOTE | 2018-07-20 10:27 | CP.PCM.CON ---
<Percy Wetzel - Last Filed: 07/20/18 10:30> History of Present Illness - History of Present Illness History of Present Illness: GI Fellow PGY4, consult note. Patient is non-compliant 52F with extensive surgical history s/p subtotal colectomy for Colon CA, whipple for pancreatic CA, chronic opiate use, DM presenting with chronic abdominal pain, vomiting and recent diarrhea. Patient has been seen by this service many times in the hospital. Patient does not follow up with laboratory geneticist as outpt. She says she is supposed to go to [facility]. She states the diarrhea is bothering her and is not eating well because she is vomiting. Last EGD was 09/10 that showed esophageal web and bile gastritis. After discussion with nurse, she has not seen any vomit or diarrhea from patient. I asked the patient to show the nurse that she is vomiting and having diarrhea. PMHxs - as above and COPD, HTN PSHx - as above and cholecystectomy FMHx - unrelated SocHx - 1/2 ppd smoker. Denies alcohol. 12pt ROS completed and negative except for above. Past Patient History - Infectious Disease Hx of Infectious Diseases: None - Tetanus Immunizations Tetanus Immunization: Unknown - Past Social History Smoking Status: Light Smoker < 10 Cigarettes Daily - CARDIAC Hx Cardiac Disorders: Yes Hx Hypertension: Yes - PULMONARY Hx Asthma: Yes Hx Chronic Obstructive Pulmonary Disease (COPD): Yes - NEUROLOGICAL Hx Neurological Disorder: No - HEENT Hx HEENT Problems: No - RENAL Hx Chronic Kidney Disease: No - ENDOCRINE/METABOLIC Hx Diabetes Mellitus Type 2: Yes - HEMATOLOGICAL/ONCOLOGICAL Hx Blood Disorders: Yes Hx Cancer: Yes (colon/ pancreatic) - INTEGUMENTARY Hx Dermatological Problems: No - MUSCULOSKELETAL/RHEUMATOLOGICAL Hx Arthritis: Yes - GASTROINTESTINAL Hx Gastrointestinal Disorders: Yes Hx Gastroesophageal Reflux: Yes - GENITOURINARY/GYNECOLOGICAL Hx Genitourinary Disorders: Yes Hx Urinary Tract Infection: Yes Other/Comment: Tubal ligation - PSYCHIATRIC Hx Psychophysiologic Disorder: No Hx Substance Use: No (history of substance abuse) Other/Comment: Hx substance abuse treatment - SURGICAL HISTORY Other/Comment: CA Colon - whipple - ANESTHESIA Hx Anesthesia: Yes Hx Anesthesia Reactions: No Hx Malignant Hyperthermia: No Meds Allergies/Adverse Reactions: Allergies Allergy/AdvReac Type Severity Reaction Status Date / Time acetaminophen Allergy RASH Verified 06/22/18 18:27 [From Tylenol-Codeine] codeine Allergy VOMITING Verified 06/22/18 18:27 iodine Allergy RASH Verified 06/22/18 18:27 - Medications Medications: Current Medications Amlodipine Besylate (Norvasc) 5 mg PO DAILY [facility] Last Admin: 07/20/18 10:03 Dose: Not Given Sodium Chloride (Sodium Chloride 0.9%) 1,000 mls @ 100 mls/hr IV .Q10H [facility] Last Admin: 07/19/18 21:24 Dose: 100 mls/hr Insulin Human Regular (Humulin R Low) 0 units SC [facility]; Protocol Last Admin: 07/20/18 10:03 Dose: Not Given Ondansetron HCl (Zofran Inj) 4 mg IVP Q6H PRN PRN Reason: Nausea/Vomiting Last Admin: 07/20/18 09:53 Dose: 4 mg Oxycodone HCl (Oxycodone Immediate Release Tab) 30 mg PO Q6H PRN PRN Reason: Pain, moderate (4-7) Last Admin: 07/20/18 09:53 Dose: 30 mg Oxycodone/Acetaminophen (Percocet 10/325 Mg Tab) 1 tab PO Q6H PRN PRN Reason: Pain, severe (8-10) Pantoprazole Sodium (Protonix Inj) 40 mg IVP DAILY [facility] Last Admin: 07/20/18 09:52 Dose: 40 mg Physical Exam - Constitutional Appears: Non-toxic, No Acute Distress - Head Exam Head Exam: NORMAL INSPECTION - Eye Exam Eye Exam: EOMI, Normal appearance - ENT Exam ENT Exam: Mucous Membranes Moist, Normal Exam - Respiratory Exam Respiratory Exam: Clear to Auscultation Bilateral, NORMAL BREATHING PATTERN - Cardiovascular Exam Cardiovascular Exam: REGULAR RHYTHM, +S1, +S2 - GI/Abdominal Exam GI & Abdominal Exam: Normal Bowel Sounds, Soft, Tenderness. absent: Organomegaly - Extremities Exam Extremities exam: Positive for: normal inspection - Neurological Exam Neurological exam: Alert, CN II-XII Intact, Oriented x3 - Psychiatric Exam Psychiatric exam: Normal Affect, Normal Mood - Skin Skin Exam: Dry, Normal Color Results - Vital Signs Recent Vital Signs: Last Vital Signs Temp 98.6 F 07/20/18 06:00 Pulse 50 L 07/20/18 06:00 Resp 18 07/20/18 06:00 BP 124/67 07/20/18 06:00 Pulse Ox 95 07/20/18 06:00 - Labs Result Diagrams: 07/19/18 21:21 07/20/18 08:00 Labs: Laboratory Results - last 24 hr 07/19/18 07/19/18 07/19/18 21:15 21:21 21:21 WBC 5.0 RBC 4.44 Hgb 11.2 L D Hct 34.9 L MCV 78.6 L MCH 25.2 MCHC 32.1 RDW 15.7 H Plt Count 249 MPV 9.0 PT 12.4 INR 1.08 APTT 24.1 L Sodium 140 Potassium 3.9 Chloride 103 Carbon Dioxide 28 Anion Gap 12 BUN 11 Creatinine 0.7 Est GFR ( Amer) > 60 Est GFR (Non-Af Amer) > 60 POC Glucose (mg/dL) Random Glucose 140 H Calcium 9.6 Phosphorus 4.3 Magnesium 1.6 L Total Bilirubin 0.4 AST 21 ALT 13 Alkaline Phosphatase 87 Troponin I < 0.01 Total Protein 7.1 Albumin 4.2 Globulin 3.0 Albumin/Globulin Ratio 1.4 Lipase 54 07/20/18 07/20/18 06:40 08:00 WBC RBC Hgb Hct MCV MCH MCHC RDW Plt Count MPV PT INR APTT Sodium 140 Potassium 3.8 Chloride 108 H Carbon Dioxide 25 Anion Gap 11 BUN 10 Creatinine 0.7 Est GFR ( Amer) > 60 Est GFR (Non-Af Amer) > 60 POC Glucose (mg/dL) 185 H Random Glucose 158 H Calcium 8.7 Phosphorus Magnesium 1.7 Total Bilirubin 0.3 AST 14 D ALT 19 Alkaline Phosphatase 79 Troponin I Total Protein 6.3 Albumin 3.7 Globulin 2.7 Albumin/Globulin Ratio 1.4 Lipase Assessment & Plan - Assessment and Plan (Free Text) Assessment: Non-compliant 52F with recurrent admissions for abdominal pain, vomiting now with diarrhea x3 days #Diarrhea #Chronic abdominal pain and vomiting - EGD 08/2017 with bile gastritis, esophageal web #Gastroparesis #T2DM #Hx of pancreatic ca s/p whipple #Hx of colon CA s/p subtotal colectomy Plan: -Possible gastroenteritis -Patient has been instructed to show nurse emesis and diarrhea to evaluate severity. -Continue Zofran as needed -Recommend tight glycemic control, BG less than 200 -Discussed better nutrition and pureed food for gastroparesis -Avoid opiates, as this can worsen gastroparesis -No plan for endoscopic evaluation -She needs to follow up with primary GI for colonoscopy surveillance - Date & Time Date: 07/20/18 Time: 10:29 <Steven Owen - Last Filed: 07/20/18 10:55> Meds - Medications Medications: Current Medications Amlodipine Besylate (Norvasc) 5 mg PO DAILY [facility] Last Admin: 07/20/18 10:03 Dose: Not Given Sodium Chloride (Sodium Chloride 0.9%) 1,000 mls @ 100 mls/hr IV .Q10H [facility] Last Admin: 07/19/18 21:24 Dose: 100 mls/hr Insulin Human Regular (Humulin R Low) 0 units SC [facility]; Protocol Last Admin: 07/20/18 10:03 Dose: Not Given Ondansetron HCl (Zofran Inj) 4 mg IVP Q6H PRN PRN Reason: Nausea/Vomiting Last Admin: 07/20/18 09:53 Dose: 4 mg Oxycodone HCl (Oxycodone Immediate Release Tab) 30 mg PO Q6H PRN PRN Reason: Pain, moderate (4-7) Last Admin: 07/20/18 09:53 Dose: 30 mg Oxycodone/Acetaminophen (Percocet 10/325 Mg Tab) 1 tab PO Q6H PRN PRN Reason: Pain, severe (8-10) Pantoprazole Sodium (Protonix Inj) 40 mg IVP DAILY [facility] Last Admin: 07/20/18 09:52 Dose: 40 mg Results - Vital Signs Recent Vital Signs: Last Vital Signs Temp 98.6 F 07/20/18 06:00 Pulse 50 L 07/20/18 06:00 Resp 18 07/20/18 06:00 BP 124/67 07/20/18 06:00 Pulse Ox 95 07/20/18 06:00 - Labs Result Diagrams: 07/19/18 21:21 07/20/18 08:00 Labs: Laboratory Results - last 24 hr 07/19/18 07/19/18 07/19/18 21:15 21:21 21:21 WBC 5.0 RBC 4.44 Hgb 11.2 L D Hct 34.9 L MCV 78.6 L MCH 25.2 MCHC 32.1 RDW 15.7 H Plt Count 249 MPV 9.0 PT 12.4 INR 1.08 APTT 24.1 L Sodium 140 Potassium 3.9 Chloride 103 Carbon Dioxide 28 Anion Gap 12 BUN 11 Creatinine 0.7 Est GFR ( Amer) > 60 Est GFR (Non-Af Amer) > 60 POC Glucose (mg/dL) Random Glucose 140 H Calcium 9.6 Phosphorus 4.3 Magnesium 1.6 L Total Bilirubin 0.4 AST 21 ALT 13 Alkaline Phosphatase 87 Troponin I < 0.01 Total Protein 7.1 Albumin 4.2 Globulin 3.0 Albumin/Globulin Ratio 1.4 Lipase 54 07/20/18 07/20/18 06:40 08:00 WBC RBC Hgb Hct MCV MCH MCHC RDW Plt Count MPV PT INR APTT Sodium 140 Potassium 3.8 Chloride 108 H Carbon Dioxide 25 Anion Gap 11 BUN 10 Creatinine 0.7 Est GFR ( Amer) > 60 Est GFR (Non-Af Amer) > 60 POC Glucose (mg/dL) 185 H Random Glucose 158 H Calcium 8.7 Phosphorus Magnesium 1.7 Total Bilirubin 0.3 AST 14 D ALT 19 Alkaline Phosphatase 79 Troponin I Total Protein 6.3 Albumin 3.7 Globulin 2.7 Albumin/Globulin Ratio 1.4 Lipase Attending/Attestation - Attestation I have personally seen and examined this patient.: Yes I have fully participated in the care of the patient.: Yes I have reviewed all pertinent clinical information: Yes Notes (Text): 07/20/18 10:53 This is a 52 yr old F presenting with complaints of loose watery stools and nausea now resolving likely due to gastroparesis and medication induced. Symptoms resolving now. Has history of whipples and hence diarrhea may be multi factorial and is chronic. Pancreatic enzymes may help. [place] [facility] [place]. Advance diet as tolerated. Strict glycemic control. No further GI work up required. Will sign off now.
[2018-07-20 15:09] VITALS: BP 132/78; PULSE 49; TEMP 99; O2SAT 97
--- NOTE | 2018-07-20 16:18 | CARD ---
APPROVED REPORT Date of service: 07/19/2018 EKG Measurement Heart [id number] <Conclusion> Marked sinus bradycardia
--- NOTE | 2018-07-20 17:49 | HP ---
HISTORY OF PRESENT ILLNESS: I had sent Marizol to the Emergency Room twice in two days, first time she was sent home, the second time the ER called me to put her overnight for an observation. She is a 52-year-old -[place] female who has vomiting, diarrhea, nauseousness, and abdominal pain. It just could not stop. She had 10 bouts of bilious, nonbloody vomitus. Abdominal pain, it is almost likely gastroparesis, it is all over the abdomen and she is in lots of pain. She takes oxycodone 30 t.i.d. and Percocet 10/325 every 4 hours [address] pain from Dr[address] Fleming, her pain management doctor. Still having lots of diarrhea, she had five bouts on Wednesday, nonbloody and she is quite miserable. PAST MEDICAL HISTORY: Hypertension, insulin-dependent diabetes, COPD, asthma, colon and pancreatic cancers, chronic neck and back pain. She had a Whipple procedure. She has arthritis. She has reflux, urinary tract infection. She had tubal ligation. There is a history of substance abuse, but not now. She wants the substance abuse treatment. MEDICATIONS: She has Lantus 22 units, Humalog 5 units, and pain meds. She takes Neurontin, insulin, OxyContin, Percocet. ALLERGIES: SHE IS ALLERGIC TO TYLENOL, CODEINE, AND IODINE. SOCIAL HISTORY: Currently, she smokes half-a-pack, for 35 years. No drugs. No alcohol. FAMILY HISTORY: Diabetes in the family. REVIEW OF SYSTEMS: She is having no acute vision or hearing changes, no sore throat. No chest pain or palpitations. No shortness of breath or cough. There is severe abdominal pain, right upper quadrant and left upper quadrant, diffuse. There is diarrhea, multiple bouts. There is nausea and vomiting, no blood. No problems urinating. No extremity issues or skin issues that she knows of. PHYSICAL EXAMINATION: VITAL SIGNS: She has 98.8 temperature, 55 pulse, 18 respiratory rate, 126/98 and it came down to 131/65 blood pressures and 100% O2 sat. HEENT: Head is atraumatic, normocephalic. Extraocular muscles are intact. Pupils equal and reactive to light. Throat is dry. NECK: Supple. HEART: Regular rate. Normal S1 and S2. LUNGS: Decreased breath sounds, but clear to auscultation, poor inspiration. No wheezes, no rhonchi, no rales. ABDOMEN: Diffuse tenderness all over, not just the right and left upper quadrants, but all over the abdomen, tenderness. No guarding or rebound. There is decreased bowel sounds, but they are present. EXTREMITIES: No extremity pains or edema. NEUROLOGIC: GCS is 15. Cranial nerves II through XII: Speech is intact. SKIN: Warm and dry. No rashes or ulcers I can see. PSYCHOLOGIC: Alert and oriented x3. LYMPHATICS: Thyroid midline. No palpable lymphadenopathy appreciated. LABORATORY DATA: She had some tests done. She has a 5 white count, 11.2 hemoglobin, 34.9 hematocrit with a 249 platelets. INR is 1.08. Sodium 140, potassium of 3.9, BUN 11, creatinine 0.7, GFR is greater than 60, sugar is 140, calcium is 9.6, phosphorus 4.3, magnesium 1.6, total bilirubin is 0.4. AST is 21, ALT is 13, alkaline phosphatase 87. Troponin I is less than 0.01, total protein 7.1, albumin is 4.2, globulin 3, lipase is 54. ASSESSMENT AND PLAN: I am going to order an ultrasound of the abdomen and pelvis, GI evaluation. She is on IV fluids, insulin coverage, Norvasc for the blood pressure. She is back on OxyContin and Percocet, Protonix, IV fluids and Zofran. She will have clear liquids with breakfast. I increased her diet to regular for lunch. If she does well, I will discharge her after lunch. She is here for second visit to the ER with nausea, vomiting, diarrhea, possible gastroparesis type picture in one who is a diabetic, history of colon cancer and Whipple. Mayur Mcclendon DO
== END 2018-07-20 18:46 | disposition home or self-care (01) ==
LOC: ED 19:28 → ERH 22:41 → 5RNO 07-20 00:51
PROVIDERS: ADMIT Family Medicine; ATTEND Family Medicine
DX: E11.40 Type 2 diabetes mellitus with diabetic neuropathy, unspecified (principal); K31.84 Gastroparesis; I10 Essential (primary) hypertension; J44.9 Chronic obstructive pulmonary disease, unspecified; Z85.038 Personal history of other malignant neoplasm of large intestine; Z85.07 Personal history of malignant neoplasm of pancreas; Z98.51 Tubal ligation status; F19.11 Other psychoactive substance abuse, in remission; Z79.4 Long term (current) use of insulin; Z88.6 Allergy status to analgesic agent; Z88.5 Allergy status to narcotic agent; Z88.8 Allergy status to other drugs, medicaments and biological substances; Z83.3 Family history of diabetes mellitus; Z90.49 Acquired absence of other specified parts of digestive tract; F17.210 Nicotine dependence, cigarettes, uncomplicated; T50.905A Adverse effect of unspecified drugs, medicaments and biological substances, initial encounter
CPT/HCPCS: 36415; 76700; 80053; 82948; 83690; 83735; 84100; 84484; 85027; 85610; 85730; 93005; 96374; 96375; 96376; 99285; C9113; G0378; J2270; J2405; J7030

== ENCOUNTER 2018-08-16 04:47 | Inpatient (IN) | payer BC, OTHER ==
--- NOTE | 2018-08-16 05:06 | ED PDOC ---
Arrival/HPI - General Chief Complaint: Chest Pain Time Seen by Provider: 08/16/18 04:59 Historian: Patient - History of Present Illness Narrative History of Present Illness (Text): 08/16/18 05:05 Marizol Parker is a 52 year old female, whose past medical history includes hypertension, IDDM, COPD, asthma, colon/pancreatic cancer s/p Whipple procedure, chronic neck/back pain, GERD, and substance abuse, who presents to the ED compl aining of nausea and vomiting. Patient states she began experiencing chest pain yesterday and developed upper abdominal pain with associated nausea and multiple episodes of vomiting today. Patient states she has been unable to tolerate PO and take her medication secondary to vomiting. Patient denies any history of fever, chills, shortness of breath, diarrhea, urinary symptoms, headache, dizziness, or any other complaints. Symptom Onset: Gradual Symptom Course: Unchanged Activities at Onset: Light Context: Home Past Medical History - Provider Review Nursing Documentation Reviewed: Yes - Past History Past History: Non-Contributing - Infectious Disease Hx of Infectious Diseases: None - Tetanus Immunization Tetanus Immunization: Unknown - Cardiac Hx Cardiac Disorders: Yes Hx Hypertension: Yes - Pulmonary Hx Asthma: Yes Hx Chronic Obstructive Pulmonary Disease (COPD): Yes - Neurological Hx Neurological Disorder: No - HEENT Hx HEENT Disorder: No - Renal Hx Renal Disorder: No - Endocrine/Metabolic Hx Diabetes Mellitus Type 2: Yes - Hematological/Oncological Hx Blood Disorders: Yes Hx Cancer: Yes (colon/ pancreatic) - Integumentary Hx Dermatological Disorder: No - Musculoskeletal/Rheumatological Hx Arthritis: Yes - Gastrointestinal Hx Gastrointestinal Disorders: Yes Hx Gastroesophageal Reflux: Yes - Genitourinary/Gynecological Hx Genitourinary Disorders: Yes Hx Urinary Tract Infection: Yes Other/Comment: Tubal ligation - Psychiatric Hx Psychophysiologic Disorder: No Hx Substance Use: No (history of substance abuse) Other/Comment: Hx substance abuse treatment - Surgical History Other/Comment: CA Colon - whipple - Anesthesia Hx Anesthesia: Yes Hx Anesthesia Reactions: No Hx Malignant Hyperthermia: No - Suicidal Assessment Feels Threatened In Home Enviroment: No Family/Social History - Physician Review Nursing Documentation Reviewed: Yes Family/Social History: Unknown Family HX Smoking Status: Light Smoker < 10 Cigarettes Daily Hx Alcohol Use: No Hx Substance Use: No (history of substance abuse) Hx Substance Use Treatment: Yes Allergies/Home Meds Allergies/Adverse Reactions: Allergies acetaminophen [From Tylenol-Codeine] Allergy (Verified 06/22/18 18:27) RASH codeine Allergy (Verified 06/22/18 18:27) VOMITING iodine Allergy (Verified 06/22/18 18:27) RASH Home Medications: Home Meds Medication Instructions Recorded Confirmed Gabapentin [Neurontin] 100 mg PO BID 12/12/17 08/16/18 Insulin Glargine, Recombina 22 unit SQ BID 03/10/18 08/16/18 [Lantus] Insulin Human Regular-MED [HumuLIN 5 units SC TID 03/10/18 08/16/18 R MED] Oxycodone HCl [Oxycontin] 30 mg PO Q6 PRN 06/22/18 08/16/18 Oxycodone HCl/Acetaminophen 1 each PO PRN PRN 06/22/18 08/16/18 [Percocet 10-325 mg Tablet] Review of Systems - Physician Review All systems were reviewed & negative as marked: Yes - Review of Systems Constitutional: Normal. absent: Fevers Eyes: Normal ENT: Normal Respiratory: Normal. absent: SOB, Cough Cardiovascular: Chest Pain Gastrointestinal: Abdominal Pain, Nausea, Vomiting. absent: Diarrhea Genitourinary Female: Normal. absent: Dysuria, Frequency, Hematuria, Urine Output Changes Musculoskeletal: Normal. absent: Back Pain, Neck Pain Skin: Normal. absent: Rash Neurological: Normal. absent: Headache, Dizziness Endocrine: Normal Hemo/Lymphatic: Normal Psychiatric: Normal Physical Exam Vital Signs Reviewed: Yes Temperature: Afebrile Blood Pressure: Normal Pulse: Regular Respiratory Rate: Normal Appearance: Positive for: Well-Appearing, Non-Toxic, Comfortable Pain Distress: None Mental Status: Positive for: Alert and Oriented X 3 - Systems Exam Head: Present: Atraumatic, Normocephalic Pupils: Present: PERRL Extroacular Muscles: Present: EOMI Conjunctiva: Present: Normal Mouth: Present: Moist Mucous Membranes Neck: Present: Normal Range of Motion Respiratory/Chest: Present: Clear to Auscultation, Good Air Exchange. No: Respiratory Distress, Accessory Muscle Use Cardiovascular: Present: Regular Rate and Rhythm, Normal S1, S2. No: Murmurs Abdomen: No: Tenderness, Distention, Peritoneal Signs Back: Present: Normal Inspection Upper Extremity: Present: Normal Inspection. No: Cyanosis, Edema Lower Extremity: Present: Normal Inspection. No: Edema Neurological: Present: GCS=15, CN II-XII Intact, Speech Normal Skin: Present: Warm, Dry, Normal Color. No: Rashes Psychiatric: Present: Alert, Oriented x 3, Normal Insight, Normal Concentration Medical Decision Making ED Course and Treatment: 08/16/18 05:05 Impression: 52 year old female c/o chest pain, upper abdominal pain, nausea, and vomiting. Plan: -- EKG -- CXR -- Labs, lipase, cardiac enzymes -- IV fluids -- Zofran -- Pepcid -- Reassess and disposition. Progress Notes: Reviewed EKG, sinus bradycardia at [address] bpm[address] Non-specific ST/T wave changes. 08/16/18 05:49 CXR reviewed, shows no acute processes. 08/16/18 06:48 Case was discussed with .Accepts to his service.Request / on consult. - RAD Interpretation Ophthalmology Surgical Technician: ED Physician - EKG Interpretation Interpreted by ED Physician: Yes Type: 12 lead EKG - Scribe Statement The provider has reviewed the documentation as recorded by the Scribe Stormy Minor All medical record entries made by the Scribe were at my direction and personally dictated by me. I have reviewed the chart and agree that the record accurately reflects my personal performance of the history, physical exam, medical decision making, and the department course for this patient. I have also personally directed, reviewed, and agree with the discharge instructions and disposition. Disposition/Present on Arrival - Present on Arrival Any Indicators Present on Arrival: No History of DVT/PE: No History of Uncontrolled Diabetes: Yes Urinary Catheter: No History of Decub. Ulcer: No History Surgical Site Infection Following: None - Disposition Have Diagnosis and Disposition been Completed?: Yes Diagnosis: Chest pain, Gastroparesis, Intractable vomiting with nausea Disposition: HOSPITALIZED Disposition Time: 06:48 Condition: STABLE Discharge Instructions (ExitCare): Chest Pain (ED) Referrals: Ronnell Sue MD [Primary Care Provider] - Follow up with primary Forms: dVisit (Indian)
[2018-08-16] MEDS ORDERED: Sodium Chloride 0.9% 1,000 ML IV STA ×2 (05:12→06:51)
[2018-08-16 06:14] LABS: HEMOGLOBIN 11.5 g/dL (12.0-16.0); MEAN CELL VOLUME 76.1 fl (80.0-105.0); MEAN CORPUSCULAR HEMOGLOBIN 25.2 pg (25.0-35.0); MEAN PLATELET VOLUME 8.3 fl (7.0-11.0); RBC 4.57 10^6/uL (3.5-6.1); RED CELL DISTRIBUTION WIDTH 15.2 % (11.5-14.5); WHITE BLOOD COUNT 3.7 10^3/ul (4.5-11.0)
[2018-08-16 06:19] LABS: INR 1.05; PARTIAL THROMBOPLASTIN TIME 23.1 Seconds (25.1-36.5); PROTHROMBIN TIME 12.1 SECONDS (9.4-12.5)
[2018-08-16 06:40] LABS: TROPONIN I < 0.01 ng/mL
[2018-08-16 06:46] LABS: ALB/GLOB RATIO 1.5 (1.1-1.8); ALBUMIN 4.3 g/dL (3.0-4.8); ALT/SGPT 30 U/L (7-56); AST/SGOT 21 U/L (14-36); BLOOD UREA NITROGEN 17 mg/dL (7-21); CALCIUM 9.5 mg/dL (8.4-10.5); GFR NON-AFRICAN AMERICAN > 60; LIPASE 33 U/L (23-300)
[2018-08-16] MEDS ORDERED: oxyCODONE 10 mg ER Tab (oxyCONTIN) PO PRN ×2 (07:13→07:18)
--- NOTE | 2018-08-16 08:02 | CP.PCM.CON ---
History of Present Illness - History of Present Illness History of Present Illness: GI Fellow PGY4, consult note. Patient is non-compliant 52F with extensive surgical history s/p subtotal colectomy for Colon CA, whipple for pancreatic CA, chronic opiate use, DM presenting with intractable nausea and vomiting. Patient has been seen by this service many times in the hospital. Patient does not follow up with gastroent erologist as outpt regularly. She says she made and appointment with [facility] for September with Dr. Contreras. She states the n/v started a few days ago after she was having chest, leg and arm pain. She has tried toast and crackers but it would not stay down. She denies abdominal pain, dysphagia, odynophagia. She admits constipation for several days as well. Last BM was 2-3 days ago. Last EGD was 09/10 that showed esophageal web and bile gastritis. PMHxs - as above and COPD, HTN PSHx - as above and cholecystectomy FMHx - unrelated SocHx - 1/2 ppd smoker. Denies alcohol. 12pt ROS completed and negative except for above. Past Patient History - Infectious Disease Hx of Infectious Diseases: None - Tetanus Immunizations Tetanus Immunization: Unknown - Past Social History Smoking Status: Light Smoker < 10 Cigarettes Daily - CARDIAC Hx Cardiac Disorders: Yes Hx Hypertension: Yes - PULMONARY Hx Asthma: Yes Hx Chronic Obstructive Pulmonary Disease (COPD): Yes - NEUROLOGICAL Hx Neurological Disorder: No - HEENT Hx HEENT Problems: No - RENAL Hx Chronic Kidney Disease: No - ENDOCRINE/METABOLIC Hx Diabetes Mellitus Type 2: Yes - HEMATOLOGICAL/ONCOLOGICAL Hx Blood Disorders: Yes Hx Cancer: Yes (colon/ pancreatic) - INTEGUMENTARY Hx Dermatological Problems: No - MUSCULOSKELETAL/RHEUMATOLOGICAL Hx Arthritis: Yes - GASTROINTESTINAL Hx Gastrointestinal Disorders: Yes Hx Gastroesophageal Reflux: Yes - GENITOURINARY/GYNECOLOGICAL Hx Genitourinary Disorders: Yes Hx Urinary Tract Infection: Yes Other/Comment: Tubal ligation - PSYCHIATRIC Hx Psychophysiologic Disorder: No Hx Substance Use: No (history of substance abuse) Other/Comment: Hx substance abuse treatment - SURGICAL HISTORY Other/Comment: CA Colon - whipple - ANESTHESIA Hx Anesthesia: Yes Hx Anesthesia Reactions: No Hx Malignant Hyperthermia: No Meds Allergies/Adverse Reactions: Allergies Allergy/AdvReac Type Severity Reaction Status Date / Time acetaminophen Allergy RASH Verified 06/22/18 18:27 [From Tylenol-Codeine] codeine Allergy VOMITING Verified 06/22/18 18:27 iodine Allergy RASH Verified 06/22/18 18:27 - Medications Medications: Current Medications Amlodipine Besylate (Norvasc) 5 mg PO DAILY NADYA Gabapentin (Neurontin) 100 mg PO BID NADYA; Protocol Sodium Chloride (Sodium Chloride 0.9%) 1,000 mls @ 100 mls/hr IV .Q10H STA Stop: 08/16/18 16:50 Last Admin: 08/16/18 07:36 Dose: Not Given Pantoprazole Sodium (Protonix 40mg Ivpb) 40 mg in 100 mls @ 200 mls/hr IVPB 0600 NADYA Sodium Chloride (Sodium Chloride 0.45%) 1,000 mls @ 60 mls/hr IV .[id number] NADYA Insulin Human Regular (Humulin R Low) 0 units SC ACHS NADYA; Protocol Metoclopramide HCl (Reglan) 10 mg IVP ACHS NADYA Ondansetron HCl (Zofran Inj) 4 mg IVP Q4H PRN PRN Reason: Nausea/Vomiting Stop: 08/16/18 12:00 Ondansetron HCl (Zofran Inj) 4 mg IVP Q4 PRN PRN Reason: Nausea/Vomiting Oxycodone HCl (Oxycontin Extended Release Tab) 30 mg PO Q6 PRN PRN Reason: Pain, moderate (4-7) Stop: 08/19/18 07:19 Physical Exam - Constitutional Appears: Non-toxic, No Acute Distress - Head Exam Head Exam: NORMAL INSPECTION - Eye Exam Eye Exam: EOMI, Normal appearance - ENT Exam ENT Exam: Mucous Membranes Dry - Respiratory Exam Respiratory Exam: Clear to Auscultation Bilateral, NORMAL BREATHING PATTERN - Cardiovascular Exam Cardiovascular Exam: REGULAR RHYTHM, +S1, +S2 - GI/Abdominal Exam GI & Abdominal Exam: Hypoactive Bowel Sounds, Soft. absent: Organomegaly, Tenderness - Extremities Exam Extremities exam: Positive for: normal inspection - Neurological Exam Neurological exam: Alert, CN II-XII Intact, Oriented x3 - Psychiatric Exam Psychiatric exam: Normal Affect, Normal Mood - Skin Skin Exam: Dry, Normal Color Results - Vital Signs Recent Vital Signs: Last Vital Signs Temp 98.2 F 08/16/18 05:11 Pulse 68 08/16/18 05:11 Resp 18 08/16/18 05:11 BP 129/95 H 08/16/18 05:11 Pulse Ox 95 08/16/18 05:11 - Labs Result Diagrams: 08/16/18 05:40 08/16/18 05:40 Labs: Laboratory Results - last 24 hr 08/16/18 08/16/18 08/16/18 05:40 05:40 05:40 WBC 3.7 L D RBC 4.57 Hgb 11.5 L Hct 34.8 L MCV 76.1 L MCH 25.2 MCHC 33.0 RDW 15.2 H Plt Count 264 MPV 8.3 PT 12.1 INR 1.05 APTT 23.1 L Sodium 135 Potassium 3.9 Chloride 97 L Carbon Dioxide 23 Anion Gap 19 BUN 17 Creatinine 0.7 Est GFR ( Amer) > 60 Est GFR (Non-Af Amer) > 60 Random Glucose 314 H* D Calcium 9.5 Total Bilirubin 0.5 AST 21 ALT 30 Alkaline Phosphatase 100 Lactate Dehydrogenase 289 L Total Creatine Kinase 65 Troponin I < 0.01 Total Protein 7.3 Albumin 4.3 Globulin 2.9 Albumin/Globulin Ratio 1.5 Lipase 33 Assessment & Plan - Assessment and Plan (Free Text) Assessment: Non-compliant 52F with recurrent admissions for abdominal pain, vomiting now with diarrhea x3 days #Intractable nausea and vomiting - EGD 08/2017 with bile gastritis, esophageal web #Gastroparesis #T2DM #Hx of pancreatic ca s/p whipple #Hx of colon CA s/p subtotal colectomy #Medical non-adherence Plan: -Likely gastroparesis -Continue IVF and Zofran as needed. -CLD okay and advance diet as tolerated -Recommend tight glycemic control, BG less than 200 -Discussed better nutrition and pureed food for gastroparesis -Avoid opiates, as this can worsen gastroparesis -No plan for endoscopic evaluation -She needs to follow up with primary GI for colonoscopy surveillance, she states her next appt with [facility] is in September 2018. - Date & Time Date: 08/16/18 Time: 08:03
[2018-08-16] MEDS ORDERED: Insulin Regular 1 UNITS/0.01 ML ML ONE (09:11)
[2018-08-16] MEDS: Insulin Reg-LOW-Coverage SC SCH ×4 (09:24→22:02)
[2018-08-16] MEDS: Sodium Chloride 0.45% 1,000 ML IV SCH (09:33)
--- NOTE | 2018-08-16 10:32 | CARD ---
APPROVED REPORT Date of service: 08/16/2018 EKG Measurement Heart [id number] <Conclusion> Sinus bradycardia (59) Rate increased c/w ECG 07/19/18
[2018-08-16] MEDS ORDERED: Morphine 2 mg/ml ISec IVP PRN (11:20)
[2018-08-16] MEDS: Morphine 2 mg/ml ISec IVP PRN ×4 (11:53→22:04)
--- NOTE | 2018-08-16 11:57 | HP ---
HISTORY OF PRESENT ILLNESS: I was called down to the emergency room this morning by the ER doctor to see Marizol. She is a 52-year-old female who presents to the emergency room with severe nausea, vomiting and abdominal pain. She has had this before. She had a gastroparesis before. It started the other day with nausea, vomiting multiple times. She could not stop it. It got so bad that she had to come to the emergency room. PAST MEDICAL HISTORY: She has a past medical history that includes hypertension, diabetes, COPD, asthma, colon, pancreatic cancer status post with Whipple procedure, chronic neck and back pain, GERD, substance abuse history. She has reflux, urinary tract infection. She had a tubal ligation, history of substance abuse. She had a colon cancer with Whipple procedure. FAMILY HISTORY: Unknown family history. SOCIAL HISTORY: She still smokes cigarettes. No alcohol. History of drugs, but not now. She went through substance abuse treatment. ALLERGIES: SHE HAS ALLERGIES TO CODEINE AND IODINE. MEDICATIONS: She takes Neurontin, insulin, OxyContin and Percocet. REVIEW OF SYSTEMS: No acute vision or hearing changes. No sore throat. No shortness of breath or cough. There is some chest pain. There is abdominal pain, nausea, vomiting. No diarrhea. No constipation. No problems urinating. No back pain or neck pain. No rashes or ulcers. No headaches or dizziness. No anxiety or depression. She has done this before. PHYSICAL EXAMINATION: VITAL SIGNS: She has a 98.2 temperature, 68 pulse, 129/95 blood pressure, 18 respiratory rate and 95% O2 sat on room air. GENERAL:. She is uncomfortable in bed, nontoxic, in pain. Alert and oriented x3. HEAD: Atraumatic, normocephalic. Extraocular muscles are intact. Pupils equal and reactive to light. Throat is moist. NECK: Supple. HEART: Regular rate. Normal S1, S2. LUNGS: Decreased breath sounds, but clear to auscultation. ABDOMEN: No bowel sounds, positive, distended. No guarding or rebound, but definitely discomfort to allow with palpation. EXTREMITIES: No edema. She could move her four extremities. NEUROLOGIC: GCS is 15. Cranial nerves II-XII grossly intact. Speech is intact. SKIN: Warm and dry. No apparent rashes or ulcers. Alert and oriented x3. Thyroid midline. No palpable appreciable lymphadenopathy. LABORATORY DATA: She had tests done. She has 3.7 white count, 11.5 hemoglobin, 34.8 hematocrit with 264 platelets. INR is 1.05. She has a 135 sodium, potassium 3.9, BUN 17, creatinine 0.7, GFR greater than 60. Sugar is 314, calcium is 9.5, total bili is 0.5, AST is 21, ALT is 30, alkaline phosphatase 100. Lactate dehydrogenase is 289, total creatine kinase is 65. Troponin I is less than 0.01, total protein 7.3, albumin is 4.3, lipase is 33. Chest x-ray is pending. She will have a consult with GI and Cardiology will be checking her troponins. She will have IV fluids and Zofran, Reglan, Protonix, Norvasc, Neurontin and she is on insulin coverage with IV fluids. Hopefully, she will improve and see what GI wants to do. She is here for abdominal pain, nausea, vomiting, gastroparesis picture. Mayur Mcclendon DO
--- NOTE | 2018-08-16 12:14 | RAD ---
Date of service: 08/16/2018 HISTORY: pain COMPARISON: Portable chest 06/22/2018. FINDINGS: LUNGS: No active pulmonary disease. PLEURA: No significant pleural effusion identified, no pneumothorax apparent. CARDIOVASCULAR: No aortic atherosclerotic calcification present OSSEOUS STRUCTURES: No significant abnormalities. VISUALIZED UPPER ABDOMEN: Normal. OTHER FINDINGS: None. IMPRESSION: No interval acute cardiopulmonary disease appreciated.
[2018-08-16 15:41] VITALS: BMI 26.6
[2018-08-16] MEDS ORDERED: Influenza Vaccine 60 mcg/0.5 mL SYR (4YR UP) IM ONE (15:41)
[2018-08-16] MEDS ORDERED: Pneumococcal 23-Valent Vaccine IM ONE (15:41)
--- NOTE | 2018-08-16 20:17 | CARD ---
APPROVED REPORT Date of service: 08/16/2018 EXAM: Two-dimensional and M-mode echocardiogram with Doppler and color Doppler. INDICATION THROMBUS 2D DIMENSIONS Left Atrium (2D)3.6 (1.6-4.0cm)IVSd1.2 (0.7-1.1cm) LVDd3.7 (3.9-5.9cm)PWd1.3 (0.7-1.1cm) LVDs2.5 (2.5-4.0cm)FS (%) 32.6 % LVEF (%)62.0 (>50%) M-Mode DIMENSIONS Aortic Root2.90 (2.2-3.7cm)Aortic Cusp Exc.1.70 (1.5-2.0cm) Aortic Valve AoV Peak Bmisiroa143.0cm/Ramsey Peak GR.12mmHgLVOT Peak Zknnuiik911.0cm/s LVOT VTI27.10cm Mitral Valve MV E Upitswai07.0cm/sMV A Ujxlzydo59.2cm/sE/A ratio1.0 TDI Lateral E' Peak V7.90cm/sMedial E' Peak V5.75cm/sE/Lateral E'10.0 E/Medial E'13.7 Pulmonary Valve PV Peak Cphrjcxh46.8cm/sPV Peak Grad.1mmHg Tricuspid Valve TR Peak [id number]/sRAP [id number] Peak Gr.15mmHg [id number] LEFT VENTRICLE The left ventricle is normal size. Apical hypertrophy is present. The left ventricular function is normal. The left ventricular ejection fraction is within the normal range. There is normal LV segmental wall motion. Transmitral Doppler flow pattern is Grade I-abnormal relaxation pattern. RIGHT VENTRICLE The right ventricle is normal size. There is normal right ventricular wall thickness. The right ventricular systolic function is normal. ATRIA The left atrium size is normal. The right atrium size is normal. AORTIC VALVE The aortic valve is mildly thickened. No aortic regurgitation is present. MITRAL VALVE The mitral valve is mildly thickened. There is no mitral valve regurgitation noted. There is no mitral valve stenosis. TRICUSPID VALVE The tricuspid valve is normal in structure. There is trace tricuspid regurgitation. PULMONIC VALVE The pulmonary valve is normal in structure. There is no pulmonic valvular regurgitation. GREAT VESSELS The aortic root is normal in size. PERICARDIAL EFFUSION There is no pericardial effusion. <Conclusion> The left ventricle is normal size. Apical hypertrophy is present. The left ventricular function is normal. The left ventricular ejection fraction is within the normal range. There is normal LV segmental wall motion. Transmitral Doppler flow pattern is Grade I-abnormal relaxation pattern.
[2018-08-16 23:11] LABS: BARBITURATES, UR NEGATIVE (NEGATIVE); BENZODIAZEPINES, UR NEGATIVE (NEGATIVE); OPIATES, UR POSITIVE (NEGATIVE); PHENCYCLIDINE, UR NEGATIVE (NEGATIVE)
--- NOTE | 2018-08-17 00:53 | CON ---
DATE: 08/16/2018 CARDIOLOGY CONSULT REASON FOR CONSULTATION: Chest pain. HISTORY OF PRESENT ILLNESS: The patient is a 52-year-old female who has a history of hypertension, diabetes mellitus, chronic obstructive lung disease, colon and pancreatic cancer, underwent a partial colectomy in the early followed 2 years later with Whipple's procedure. The patient denies any prior cardiac history. No invasive cardiac workup was performed on her, and she presented because of chest discomfort, nausea, and vomiting. SOCIAL HISTORY: The patient is a smoker. She is a nondrinker. REVIEW OF SYSTEMS: No hematemesis or melena. No fever or chills. MEDICATIONS: Morphine sulfate 1 mg intravenously every 3 hours p.r.n., Neurontin 100 mg twice a day, Norvasc 5 mg once a day, Protonix 40 mg IV piggyback daily, Reglan 10 mg intravenously twice a day, half normal saline at 60 mL an hour, Zofran 4 mg intravenously every 4 hours p.r.n. REVIEW OF SYSTEM: No reported hypertension or ventricular arrhythmia. PHYSICAL EXAMINATION: GENERAL: The patient is a middle-aged female who does not appear to be in acute distress. VITAL SIGNS: Blood pressure 139/80, heart rate 60, temperature 98.3, respirations 18. HEENT: Normocephalic. CHEST: Clear. HEART: Sounds regular. ABDOMEN: Mild epigastric tenderness. EXTREMITIES: No edema or calf tenderness. LABORATORY DATA: Hemoglobin and hematocrit 11.5 and 34.8, white count 3.7, platelet count 264,000. INR is 1.05. PTT 23.1. SMA-7, sodium 135, potassium 3.9, chloride 97, CO2 of 23, glucose , BUN 17, creatinine 0.7. One set of troponin is negative. EKG revealed sinus bradycardia at the rate of 59. Echocardiographic study performed in May of last year revealed normal ejection fraction, cannot rule out an apical thrombus and mild pulmonary hypertension. Lexiscan performed in March of this year. However, the nuclear imaging report is not available. Recent abdominal ultrasound about 1 month ago revealed no acute findings. ASSESSMENT: 1. Chest pain, rule out myocardial infarction. 2. History of colon and pancreatic cancer, status post partial colectomy and Whipple's procedure in the early . 3. Uncontrolled diabetes mellitus. RECOMMENDATIONS Continue amlodipine 5 mg once a day, intravenous Zofran, intravenous Reglan, and intravenous Protonix. The patient is not a suitable candidate for antiplatelets at least at this time until her symptoms of nausea and vomiting improve. Obtain repeat echocardiographic study. Consider abdomen and pelvis CT scan, and obtain serum D-dimer. Alan Zamudio MD
[2018-08-17] MEDS: Morphine 2 mg/ml ISec IVP PRN ×7 (01:40→21:49)
[2018-08-17] MEDS ORDERED: Pantoprazole 40mg/100mL NS 40 MG/100 ML BAG IVPB SCH (06:00)
[2018-08-17] MEDS: Insulin Reg-LOW-Coverage SC SCH ×4 (08:13→21:53)
--- NOTE | 2018-08-17 09:15 | PN ---
DATE: 08/17/2018 SUBJECTIVE: I saw her this morning resting in bed. She did not sleep that well. She has been sort of nauseous. Not vomiting. She has abdominal pain. She is not able to eat. I understand she is n.p.o. right now. I am going to try and increase her to clears, although she feels nauseous. She is on Zofran, IV fluids, Reglan, Protonix. She is off the Pepcid. No more chest pain, but just not feeling well intestinally. PHYSICAL EXAMINATION: VITAL SIGNS: 98.2 temp, 58 pulse, 130/79 blood pressure, 20 respiratory rate, 98% O2 sat on room air. HEENT: Head is atraumatic, normocephalic. HEART: Regular rate. LUNGS: Decreased breath sounds, but clear. ABDOMEN: Mildly distended. No bowel sounds yet. No guarding or rebound, but there is some diffuse tenderness. EXTREMITIES: Have no edema. MEDICATIONS: She is on insulin, morphine, Neurontin, Norvasc, Protonix, Reglan, IV fluids and Zofran. LABORATORY DATA: She has a 3.7 white count, 11.5 hemoglobin, 264 platelets. Labs are pending this morning. 135 sodium, potassium 3.9, last blood sugar was 113, all three troponins is less than 0.01. ASSESSMENT AND PLAN: She is being seen by Cardiology and GI. I am waiting for GI to give me an answer for her belly. Once we eating an no nausea and vomiting, I will be more than happy to get her on the way discharging her, but right now she will not eat. I will increase her to clears. We will see if that does not help her, she will try it at least. Marizol Parker who has gastroparesis, intractable abdominal pain, nausea and vomiting. Mayur Mcclendon DO MTDD
--- NOTE | 2018-08-17 11:01 | CP.PCM.PN ---
<Bennett Velasquez - Last Filed: 08/17/18 13:04> Subjective - Date & Time of Evaluation Date of Evaluation: 08/17/18 Time of Evaluation: 10:00 - Subjective Subjective: PGY-4 GI Fellow Prog Note Pt lying in bed when seen this AM. States N/V and abd pain improved, though states that she has not tried taking much PO since she is not that hungry. 5 point ROS negative other than stated above Objective - Vital Signs/Intake and Output Vital Signs (last 24 hours): Temp Pulse Resp BP Pulse Ox 98.2 F 58 L 20 130/79 98 08/17/18 06:00 08/17/18 10:31 08/17/18 06:00 08/17/18 10:31 08/17/18 06:00 Intake and Output: 08/17/18 08/17/18 06:59 18:59 Intake Total 800 Balance 800 - Medications Medications: Current Medications Amlodipine Besylate (Norvasc) 5 mg PO DAILY [facility] Last Admin: 08/17/18 10:31 Dose: 5 mg Gabapentin (Neurontin) 100 mg PO BID [facility]; Protocol Last Admin: 08/17/18 10:31 Dose: 100 mg Sodium Chloride (Sodium Chloride 0.45%) 1,000 mls @ 60 mls/hr IV .[id number] [facility] Last Admin: 08/16/18 09:33 Dose: 60 mls/hr Insulin Human Regular (Humulin R Low) 0 units SC ACHS [facility]; Protocol Last Admin: 08/17/18 08:13 Dose: Not Given Metoclopramide HCl (Reglan) 10 mg IVP ACHS [facility] Last Admin: 08/17/18 08:12 Dose: 10 mg Morphine Sulfate (Morphine) 1 mg IVP Q3 PRN PRN Reason: Pain, moderate (4-7) Last Admin: 08/17/18 08:12 Dose: 1 mg Ondansetron HCl (Zofran Inj) 4 mg IVP Q4 PRN PRN Reason: Nausea/Vomiting Last Admin: 08/17/18 04:38 Dose: 4 mg Pantoprazole Sodium (Protonix Inj) 40 mg IVP 0600 [facility] - Labs Labs: 08/16/18 05:40 08/16/18 05:40 PT 12.1 SECONDS (9.4-12.5) 08/16/18 05:40 INR 1.05 08/16/18 05:40 APTT 23.1 Seconds (25.1-36.5) L 08/16/18 05:40 - Constitutional Appears: Well, Non-toxic - Head Exam Head Exam: ATRAUMATIC, NORMAL INSPECTION - Eye Exam Eye Exam: EOMI. absent: Conjunctival injection, Scleral icterus - ENT Exam ENT Exam: Mucous Membranes Dry. absent: Mucous Membranes Moist, Normal External Ear Exam - Respiratory Exam Respiratory Exam: NORMAL BREATHING PATTERN. absent: Accessory Muscle Use, Respiratory Distress - GI/Abdominal Exam GI & Abdominal Exam: Soft, Normal Bowel Sounds. absent: Bruit, Distended, Firm, Guarding, Rigid, Tenderness, Hernia, Mass, Organomegaly, Pulsatile Mass, Rebound Assessment and Plan - Assessment and Plan (Free Text) Assessment: 52F with recurrent admissions for abdominal pain, vomiting now with diarrhea x3 days #Intractable nausea and vomiting - EGD 08/2017 with bile gastritis, esophageal web #Gastroparesis: Suspect symptoms related to flare #T2DM #Hx of pancreatic ca s/p whipple #Hx of colon CA s/p subtotal colectomy #Medical non-adherence Plan: -Continue IVF and Zofran as needed. -CLD for lunch, advancing to carb controlled with small freq meals tonight -Tight glycemic control, BG less than 200 -Avoid opiates as able (can worsen gatroparesis) -No plan for endoscopic evaluation at this time -Needs to follow up with primary GI for colonoscopy surveillance, she states her next appt with [facility] is in September 2018 Pt seen and examined with Dr. Rincon. Please see attestation for further recs/changes. <Martinez Rincon - Last Filed: 08/17/18 18:32> Objective - Vital Signs/Intake and Output Vital Signs (last 24 hours): Temp Pulse Resp BP Pulse Ox 97.3 F L 64 20 133/90 99 08/17/18 16:59 08/17/18 16:59 08/17/18 16:59 08/17/18 16:59 08/17/18 16:59 Intake and Output: 08/17/18 08/17/18 06:59 18:59 Intake Total 800 Balance 800 - Medications Medications: Current Medications Amlodipine Besylate (Norvasc) 5 mg PO DAILY [facility] Last Admin: 08/17/18 10:31 Dose: 5 mg Gabapentin (Neurontin) 100 mg PO BID [facility]; Protocol Last Admin: 08/17/18 17:08 Dose: 100 mg Sodium Chloride (Sodium Chloride 0.45%) 1,000 mls @ 60 mls/hr IV .[id number] [facility] Last Admin: 08/17/18 17:10 Dose: 60 mls/hr Insulin Human Regular (Humulin R Low) 0 units SC [facility]; Protocol Last Admin: 08/17/18 17:08 Dose: 3 units Metoclopramide HCl (Reglan) 10 mg IVP [facility] Last Admin: 08/17/18 17:09 Dose: 10 mg Morphine Sulfate (Morphine) 1 mg IVP Q3 PRN PRN Reason: Pain, moderate (4-7) Last Admin: 08/17/18 15:28 Dose: 1 mg Ondansetron HCl (Zofran Inj) 4 mg IVP Q4 PRN PRN Reason: Nausea/Vomiting Last Admin: 08/17/18 04:38 Dose: 4 mg Pantoprazole Sodium (Protonix Inj) 40 mg IVP 0600 [facility] - Labs Labs: 08/16/18 05:40 08/16/18 05:40 PT 12.1 SECONDS (9.4-12.5) 08/16/18 05:40 INR 1.05 08/16/18 05:40 APTT 23.1 Seconds (25.1-36.5) L 08/16/18 05:40 Attending/Attestation - Attestation I have personally seen and examined this patient.: Yes I have fully participated in the care of the patient.: Yes I have reviewed all pertinent clinical information, including history, physical exam and plan: Yes Notes (Text): 08/17/18 18:29 I have seen and examined patient with GI fellow. No acute events overnight, she is seen resting in bed comfortably. She was able to tolerate PO liquids today without any recurrent nausea, vomiting. She continues to endorse mild generalized abdominal pain. Review of vitals from today are normal. DM Abdominal pain, nausea, vomiting - gastroparesis History of pancreatic CA s/p whipple History of colon cancer s/p subtotal colectomy - Advance diet slowly as tolerated, small frequent meal consumption - Anti-emetic therapy PRN - Continue with IVF hydration, supportive therapy - Stressed importance of strict glyemic control - Will continue to monitor patient clinical course
--- NOTE | 2018-08-17 14:21 | PN ---
DATE: 08/17/2018 CARDIOLOGY FOLLOWUP SUBJECTIVE: The patient's nausea has resolved. She was able to take p.o. Her past medical history includes hypertension, diabetes mellitus, COPD, history of pancreatic CA and with a partial colectomy secondary to colon CA. She is chest pain free. A stress test performed earlier this year was normal. PHYSICAL EXAMINATION: VITAL SIGNS: The blood pressure is 130/80, the heart rate is in the 50s. NECK: Negative JVD. LUNGS: Without rales. HEART: Reveals S1, S2. EXTREMITIES: Without edema. LABORATORY DATA: Hemoglobin is 11.5. Chemistries: The glucose is 361. Troponins are negative x2. IMPRESSION: 1. Resolution of nausea and vomiting. 2. History of pancreatic cancer. 3. No evidence for acute coronary syndrome. 4. Noncardiac chest discomfort. 5. Diabetes mellitus. 6. Chronic obstructive pulmonary disease. PLAN: Given these findings, there is no evidence for acute coronary syndrome. We will discontinue telemetry today. Brenton Jose MD
[2018-08-17] MEDS: Sodium Chloride 0.45% 1,000 ML IV SCH ×2 (17:10→23:59)
[2018-08-17] MEDS ORDERED: Morphine 2 mg/ml ISec IVP STA (23:45)
[2018-08-18] MEDS: Morphine 2 mg/ml ISec IVP PRN ×5 (03:33→21:26)
[2018-08-18] MEDS ORDERED: Morphine 2 mg/ml ISec IVP PRN (07:14)
[2018-08-18] MEDS: Insulin Reg-LOW-Coverage SC SCH ×4 (08:06→21:40)
[2018-08-18 09:32] LABS: HEMOGLOBIN 11.3 g/dL (12.0-16.0); MEAN CELL VOLUME 76.3 fl (80.0-105.0); MEAN CORPUSCULAR HEMOGLOBIN 25.1 pg (25.0-35.0); MEAN CORPUSCULAR HGB CONC 32.8 g/dl (31.0-37.0); MEAN PLATELET VOLUME 8.2 fl (7.0-11.0); RBC 4.51 10^6/uL (3.5-6.1); WHITE BLOOD COUNT 3.3 10^3/ul (4.5-11.0)
--- NOTE | 2018-08-18 10:01 | CP.PCM.PN ---
Subjective - Date & Time of Evaluation Date of Evaluation: 08/18/18 Time of Evaluation: 08:20 - Subjective Subjective: PGY-4 GI Fellow Prog Note Pt lying in bed when seen this AM. States she had some n/v last night with PO intake. Blood sugar 280+ in last 24 hrs. 5 point ROS negative other than stated above Objective - Vital Signs/Intake and Output Vital Signs (last 24 hours): Temp Pulse Resp BP Pulse Ox 97.3 F L 58 L 20 120/78 99 08/17/18 16:59 08/18/18 09:24 08/17/18 16:59 08/18/18 09:24 08/17/18 16:59 Intake and Output: 08/18/18 08/18/18 06:59 18:59 Intake Total 800 Balance 800 - Medications Medications: Current Medications Amlodipine Besylate (Norvasc) 5 mg PO DAILY [facility] Last Admin: 08/18/18 09:24 Dose: 5 mg Gabapentin (Neurontin) 100 mg PO BID [facility]; Protocol Last Admin: 08/18/18 09:24 Dose: 100 mg Sodium Chloride (Sodium Chloride 0.45%) 1,000 mls @ 60 mls/hr IV .[id number] [facility] Last Admin: 08/17/18 23:59 Dose: 60 mls/hr Insulin Human Regular (Humulin R Low) 0 units SC [facility]; Protocol Last Admin: 08/18/18 08:06 Dose: 3 units Metoclopramide HCl (Reglan) 10 mg IVP ACHS [facility] Last Admin: 08/18/18 08:02 Dose: 10 mg Ondansetron HCl (Zofran Inj) 4 mg IVP Q4 PRN PRN Reason: Nausea/Vomiting Last Admin: 08/17/18 04:38 Dose: 4 mg Pantoprazole Sodium (Protonix Inj) 40 mg IVP 0600 [facility] Last Admin: 08/18/18 05:53 Dose: 40 mg - Labs Labs: 08/18/18 09:00 08/16/18 05:40 PT 12.1 SECONDS (9.4-12.5) 08/16/18 05:40 INR 1.05 08/16/18 05:40 APTT 23.1 Seconds (25.1-36.5) L 08/16/18 05:40 - Constitutional Appears: No Acute Distress, Chronically Ill, Other (Obese) - Head Exam Head Exam: ATRAUMATIC, NORMAL INSPECTION - Eye Exam Eye Exam: EOMI. absent: Conjunctival injection, Scleral icterus - ENT Exam ENT Exam: Mucous Membranes Moist, Normal External Ear Exam. absent: Mucous Membranes Dry - Respiratory Exam Respiratory Exam: NORMAL BREATHING PATTERN. absent: Accessory Muscle Use, Respiratory Distress - GI/Abdominal Exam GI & Abdominal Exam: Soft, Normal Bowel Sounds. absent: Bruit, Distended, Firm, Guarding, Rigid, Tenderness, Hernia, Mass, Organomegaly, Pulsatile Mass, Rebound Additional comments: though exam limited by body habitus Assessment and Plan - Assessment and Plan (Free Text) Assessment: 52F with recurrent admissions for abdominal pain, vomiting #Intractable nausea and vomiting - EGD 08/2017 with bile gastritis, esophageal web #Gastroparesis: Suspect symptoms related to flare #T2DM #Hx of pancreatic ca s/p whipple #Hx of colon CA s/p subtotal colectomy #Medical non-adherence Plan: -Tight glycemic control, BG less than 200 goal -Continue IVF and Zofran as needed. -Carb controlled with small freq meals; place on Full Liq carb control tonight since relapse of symptoms -Avoid opiates as able (can worsen gastroparesis) -No plan for endoscopic evaluation at this time -Needs to follow up with primary GI for colonoscopy surveillance, she states her next appt with [facility] is in September [address] Rincon. Please see attestation for further recs/changes.
[2018-08-18 10:16] LABS: ALB/GLOB RATIO 1.4 (1.1-1.8); ALBUMIN 4.1 g/dL (3.0-4.8); ALT/SGPT 21 U/L (7-56); AST/SGOT 15 U/L (14-36); BLOOD UREA NITROGEN 8 mg/dL (7-21); CALCIUM 9.2 mg/dL (8.4-10.5); GFR NON-AFRICAN AMERICAN > 60
--- NOTE | 2018-08-18 16:01 | PN ---
DATE: 08/18/2018 SUBJECTIVE: The patient's nausea and vomiting much better. She is eating. PHYSICAL EXAMINATION: VITAL SIGNS: Blood pressure 120/78, heart rate is in the 60s. NECK: Negative JVD. LUNGS: Without rales. HEART: S1 and S2. EXTREMITIES: Without edema. LABORATORY DATA: Hemoglobin is 11.3. Chemistries: Glucose is 322. IMPRESSION: 1. Improvement of nausea and vomiting. 2. Diabetes mellitus. 3. Gastroparesis. 4. Chronic obstructive pulmonary disease. 5. Noncardiac chest pain. Given these findings, the patient is doing better. we will sign off on the patient today. Brenton Jose MD
[2018-08-18] MEDS: Sodium Chloride 0.45% 1,000 ML IV SCH (17:31)
--- NOTE | 2018-08-18 20:43 | DS ---
HISTORY OF PRESENT ILLNESS: I saw her this morning in bed. She was sleeping well. I was told by the nurse that she did eat yesterday. I have read the note of GI and Cardiology and they said the nauseousness has gone. She is on a regular diet. She tells me this morning she is just not feeling well, does not want to eat. I was going to do a flat plate of the abdomen and so I read all these notes and discussed with the nurse that she is also refusing labs for the past two days yesterday and today and she wants more pain medication and she had three bowel movements, so she is on IV fluids, insulin coverage, Neurontin, Norvasc, Protonix, Reglan and Zofran. We will change these all to p.o. medications. She will be discharged today and we will stop the flat of the abdomen. PHYSICAL EXAMINATION: VITAL SIGNS: She has a 97.3 temp, 64 pulse, 133/90 blood pressure, 20 respiratory rate, 99% sat on room air. HEENT: Head is atraumatic and normocephalic. HEART: Regular rate. LUNGS: Clear to auscultation. ABDOMEN: Soft. Positive bowel sounds. EXTREMITIES: No edema. ASSESSMENT AND PLAN: She had three bowel movements yesterday, last blood sugar was 281, and she will be discharged. I discussed this with the nursing. Gastroenterology and Cardiology said she is improved. She is here for gastroparesis, nausea, vomiting and abdominal pain. Mayur Mcclendon DO
[2018-08-19] MEDS: Morphine 2 mg/ml ISec IVP PRN ×3 (00:33→08:19)
[2018-08-19] MEDS: Sodium Chloride 0.45% 1,000 ML IV SCH (02:00)
[2018-08-19] MEDS: Insulin Reg-LOW-Coverage SC SCH ×2 (08:18→11:36)
[2018-08-19] MEDS ORDERED: oxyCODONE 10 mg Immediate Release Tab PO PRN (08:22)
[2018-08-19 08:56] VITALS: BP 138/74; RESP 20; TEMP 98.5; O2SAT 95
[2018-08-19 09:01] LABS: HEMOGLOBIN 10.2 g/dL (12.0-16.0); MEAN CELL VOLUME 75.7 fl (80.0-105.0); MEAN CORPUSCULAR HEMOGLOBIN 24.3 pg (25.0-35.0); MEAN CORPUSCULAR HGB CONC 32.1 g/dl (31.0-37.0); MEAN PLATELET VOLUME 8.1 fl (7.0-11.0); RBC 4.2 10^6/uL (3.5-6.1); RED CELL DISTRIBUTION WIDTH 15.1 % (11.5-14.5)
[2018-08-19 09:03] LABS: WHITE BLOOD COUNT 2.7 10^3/uL (4.5-11.0)
[2018-08-19 09:17] VITALS: PULSE 63
--- NOTE | 2018-08-19 10:28 | DS ---
HISTORY OF PRESENT ILLNESS: I tried to discharge her yesterday, but she threw up her food and we backed her back down to n.p.o. and IV fluids and Zofran. Now, she is feeling better. She is on clear fluids this morning, I increased it to regular for lunch. If she does well, I hope to discharge her this afternoon. I stopped the morphine, she was not in any pain this morning. I started Neurontin, Norvasc, Protonix, Reglan, and Zofran. If she needs any medications, she will call me, but she tells she has the medications at home. PHYSICAL EXAMINATION: VITAL SIGNS: She has 98.2 temp, 58 pulse, 137/79 blood pressure, 19 respiratory rate, and 100% O2 sat on room air. HEENT: Head is atraumatic and normocephalic. HEART: Regular rate. LUNGS: Decreased breath sounds, but clear. ABDOMEN: Soft and nontender. Positive bowel sounds. Soft. No guarding. No rebound. EXTREMITIES: No edema. LABORATORY DATA: She has 136 sodium, potassium of 4, BUN 8, creatinine 0.7, GFR last blood sugar was 249, calcium was 9.2, total bili was 0.4, AST was 15, ALT was 21, alk phos 83, and total protein 7. White count 3.3, hemoglobin 11.3, hematocrit 34.4, and platelets of 294. ASSESSMENT AND PLAN: She has been seen by Cardiology, who signed off to GI. I saw the GI, increased for clear this morning. I will increase it for regular for lunch. If she does well, we will discharge her this afternoon and that is the plan. She was here for gastroparesis, intractable nausea and vomiting, and abdominal pain. She is also a diabetic. Mayur Mcclendon DO MTDD
--- NOTE | 2018-08-19 10:52 | RAD ---
Date of service: 08/18/2018 HISTORY: abd pain; nausea; vomiting COMPARISON: Abdomen radiographs 07/21/2017. FINDINGS: BOWEL: Postoperative surgical clips seen at the central upper abdomen once again. There is a nonobstructive bowel gas pattern appreciated. No large free intra peritoneal gas collection is identified. Moderate retained fecal material volume is noted at the distal rectosigmoid and is otherwise limited throughout the remaining visualized large-bowel. Various cysts pelvic soft tissue calcifications are reiterated greater the right than left sides with majority suggestive of phleboliths. BONES: Multilevel degenerative disc disease is seen at the inferior lumbar spine as well as moderate degenerative changes at the bilateral sacroiliac and hip joints. OTHER FINDINGS: None. IMPRESSION: Nonobstructive bowel gas pattern appreciable. Postop changes reiterated upper central abdomen once again. No large free intra peritoneal gas collection.
== END 2018-08-19 15:03 | disposition home or self-care (01) | DRG 73 ==
LOC: ED 04:47 → ERH 06:49 → 3RNO 10:13 → ERH 12:07 → OBSVTOIN 08-18 12:07
PROVIDERS: ADMIT Family Medicine; ATTEND Family Medicine
DX: E11.43 Type 2 diabetes mellitus with diabetic autonomic (poly)neuropathy (principal); Q39.4 Esophageal web; K31.84 Gastroparesis; I10 Essential (primary) hypertension; Z79.4 Long term (current) use of insulin; J44.9 Chronic obstructive pulmonary disease, unspecified; E11.65 Type 2 diabetes mellitus with hyperglycemia; F17.210 Nicotine dependence, cigarettes, uncomplicated; K21.9 Gastro-esophageal reflux disease without esophagitis; K29.70 Gastritis, unspecified, without bleeding; K59.00 Constipation, unspecified; Z79.891 Long term (current) use of opiate analgesic; Z85.038 Personal history of other malignant neoplasm of large intestine; Z85.07 Personal history of malignant neoplasm of pancreas; Z87.440 Personal history of urinary (tract) infections; Z90.411 Acquired partial absence of pancreas; Z90.49 Acquired absence of other specified parts of digestive tract; Z91.19 Patient's noncompliance with other medical treatment and regimen; M19.90 Unspecified osteoarthritis, unspecified site; Z88.5 Allergy status to narcotic agent; Z88.6 Allergy status to analgesic agent; Z88.8 Allergy status to other drugs, medicaments and biological substances; I27.20 Pulmonary hypertension, unspecified; R07.89 Other chest pain

== ENCOUNTER 2018-08-20 15:13 | Inpatient (IN) | payer BC, OTHER ==
[2018-08-20 15:13] VITALS: BMI 26.6
--- NOTE | 2018-08-20 15:24 | ED PDOC ---
Arrival/HPI - General Chief Complaint: Abdominal Pain Time Seen by Provider: 08/20/18 15:23 Historian: Patient - History of Present Illness Narrative History of Present Illness (Text): 08/20/18 16:12 53 year old female, whose past medical history includes htn, diabetes, COPD, asthma, colon and pancreatic cancer s/p whipple, chronic neck/back pain, GERD, and substance abuse, who presents to the ED complaining of vomiting and abd ominal pain x today. Patient states last BM was today and was normal. Patient states she was admitted to the hospital on 08/15/18 for vomiting, and was d/c yesterday. Patient states her last episode of vomiting was 1 hour ago. Patient denies any fever, chills, sob, chest pain, back pain, headache, or any other complaints. Time/Duration: 24 hours Symptom Onset: Gradual Symptom Course: Unchanged Activities at Onset: Light Context: Home Past Medical History - Provider Review Nursing Documentation Reviewed: Yes - Past History Past History: Non-Contributing - Infectious Disease Hx of Infectious Diseases: None - Tetanus Immunization Tetanus Immunization: Unknown - Reproductive Menopause: No - Cardiac Hx Cardiac Disorders: Yes Hx Hypertension: Yes Hx Pacemaker: No - Pulmonary Hx Respiratory Disorders: Yes Hx Asthma: Yes Hx Chronic Obstructive Pulmonary Disease (COPD): Yes - Neurological Hx Neurological Disorder: Yes Hx Dizziness: Yes (NEAR SYNCOPE) - HEENT Hx HEENT Disorder: No - Renal Hx Renal Disorder: No - Endocrine/Metabolic Hx Diabetes Mellitus Type 2: Yes - Hematological/Oncological Hx Cancer: No - Integumentary Hx Dermatological Disorder: No - Musculoskeletal/Rheumatological Hx Musculoskeletal Disorders: (CHRONIC NECK AND PBACK PAIN) Hx Arthritis: Yes Hx Falls: No - Gastrointestinal Hx Gastrointestinal Disorders: Yes (PANCRATIC CA,COLON CA WITH H/O WHIPPLE PROCEDURE) Hx Gastroesophageal Reflux: Yes Other/Comment: CONSTIPATION,GASTRITIS,GASTROPARESIS. - Genitourinary/Gynecological Hx Genitourinary Disorders: Yes Hx Urinary Tract Infection: Yes Other/Comment: Tubal ligation - Psychiatric Hx Psychophysiologic Disorder: No Hx Substance Use: Yes (CHRONIC OPIATE USE .H/O OF TREATMENT) Other/Comment: Hx substance abuse treatment - Surgical History Hx Cholecystectomy: Yes Hx Mastectomy: No - Anesthesia Hx Anesthesia: Yes Hx Anesthesia Reactions: No Hx Malignant Hyperthermia: No - Suicidal Assessment Feels Threatened In Home Enviroment: No Family/Social History - Physician Review Nursing Documentation Reviewed: Yes Family/Social History: Unknown Family HX Smoking Status: Current Some Days Smoker Hx Alcohol Use: No Hx Substance Use: Yes (CHRONIC OPIATE USE .H/O OF TREATMENT) Hx Substance Use Treatment: Yes Allergies/Home Meds Allergies/Adverse Reactions: Allergies acetaminophen [From Tylenol-Codeine] Allergy (Verified 08/20/18 15:22) RASH codeine Allergy (Verified 08/20/18 15:22) VOMITING iodine Allergy (Verified 08/20/18 15:22) RASH Home Medications: Home Meds Medication Instructions Recorded Confirmed RX: Gabapentin [Neurontin] 100 mg PO BID 12/12/17 08/16/18 RX: Insulin Glargine, Recombina 22 unit SQ BID 03/10/18 08/16/18 [Lantus] RX: Insulin Human Regular-MED 5 units SC TID 03/10/18 08/16/18 [HumuLIN R MED] RX: Oxycodone HCl/Acetaminophen 1 each PO PRN PRN 06/22/18 08/16/18 [Percocet 10-325 mg Tablet] Review of Systems - Physician Review All systems were reviewed & negative as marked: Yes - Review of Systems Constitutional: Normal Eyes: Normal ENT: Normal Respiratory: Normal. absent: SOB, Cough Cardiovascular: Normal. absent: Chest Pain Gastrointestinal: Abdominal Pain (worse on left side), Nausea, Vomiting. absent: Diarrhea Genitourinary Female: Normal. absent: Dysuria, Frequency Musculoskeletal: Normal. absent: Back Pain, Neck Pain Skin: Normal. absent: Rash Neurological: Normal. absent: Headache, Dizziness Endocrine: Normal Hemo/Lymphatic: Normal Psychiatric: Normal Physical Exam Vital Signs Reviewed: Yes Vital Signs Temp Pulse Resp BP Pulse Ox 08/20/18 15:18 99.4 F 98 H 18 152/107 H 99 Temperature: Afebrile Blood Pressure: Hypertensive Pulse: Regular Respiratory Rate: Normal Appearance: Positive for: Well-Appearing, Non-Toxic, Uncomfortable Pain Distress: Moderate Mental Status: Positive for: Alert and Oriented X 3 - Systems Exam Head: Present: Atraumatic, Normocephalic Pupils: Present: PERRL Extroacular Muscles: Present: EOMI Conjunctiva: Present: Normal Mouth: Present: Moist Mucous Membranes Pharnyx: Present: Normal Neck: Present: Normal Range of Motion Respiratory/Chest: Present: Clear to Auscultation, Good Air Exchange Cardiovascular: Present: Regular Rate and Rhythm, Normal S1, S2 Abdomen: Present: Tenderness (diffuse), Normal Bowel Sounds, Other (no guarding or rebound) Back: Present: Normal Inspection Upper Extremity: Present: Normal Inspection Lower Extremity: Present: Normal Inspection Neurological: Present: GCS=15, Speech Normal Skin: Present: Warm, Dry, Normal Color Psychiatric: Present: Alert, Oriented x 3, Normal Insight, Normal Concentration Medical Decision Making ED Course and Treatment: 08/20/18 16:18 Impression: 53 year old female presents to the ED complaining of abdominal pain and vomiting. Plan: --IVF. Zofran -- UA -- AAS -- Labs -- reassess and disposition Progress Notes: 08/20/18 19:00 AAS interpreted by my as negative for obstruction and free air. Labs significant for hyperglycemia, glucose 420. Results of w/u d/w patient. Patient states she has continued abdominal pain. Plan admit for further evaluation and management. Patient agreeable w/POC. 08/20/18 19:21 Case discussed with , who accepts pt into his service. Requests NPO. IV Protonix. Consult Dr. Steven. - Scribe Statement The provider has reviewed the documentation as recorded by the Scribe Ameena Estevez All medical record entries made by the Scribe were at my direction and personally dictated by me. I have reviewed the chart and agree that the record accurately reflects my personal performance of the history, physical exam, medical decision making, and the department course for this patient. I have also personally directed, reviewed, and agree with the discharge instructions and disposition. Disposition/Present on Arrival - Present on Arrival Any Indicators Present on Arrival: Yes History of DVT/PE: No History of Uncontrolled Diabetes: Yes Urinary Catheter: No History of Decub. Ulcer: No History Surgical Site Infection Following: None - Disposition Have Diagnosis and Disposition been Completed?: Yes Diagnosis: Hyperglycemia, Intractable abdominal pain, Vomiting Disposition: HOSPITALIZED Disposition Time: 19:21 Patient Plan: Admission Patient Problems: Current Active Problems Problem Status Onset Hyperglycemia Acute Intractable abdominal pain Acute Vomiting Acute Condition: STABLE
[2018-08-20] MEDS ORDERED: Sodium Chloride 0.9% 1,000 ML IV STA (16:16)
[2018-08-20 17:57] LABS: BASO # 0.01 K/mm3 (0.0-2.0); BASO % 0.3 % (0.0-3.0); EOS # 0.1 (0.0-0.7); GRAN # 1.63 (1.4-6.5); GRAN % 40.7 % (50.0-68.0); HEMOGLOBIN 11.3 g/dL (12.0-16.0); LYMPH # 1.9 (1.2-3.4); LYMPH % 47.5 % (22.0-35.0); MEAN CELL VOLUME 76.5 fl (80.0-105.0); MEAN CORPUSCULAR HEMOGLOBIN 25.3 pg (25.0-35.0); MEAN PLATELET VOLUME 8.4 fl (7.0-11.0); MONO # 0.4 (0.1-0.6); MONO % 9.5 % (1.0-6.0); RBC 4.47 10^6/uL (3.5-6.1); RED CELL DISTRIBUTION WIDTH 15.5 % (11.5-14.5)
[2018-08-20 18:00] LABS: ALB/GLOB RATIO 1.5 (1.1-1.8); ALBUMIN 3.9 g/dL (3.0-4.8); ALT/SGPT 19 U/L (7-56); AST/SGOT 21 U/L (14-36); BLOOD UREA NITROGEN 9 mg/dL (7-21); CALCIUM 9.4 mg/dL (8.4-10.5); GFR NON-AFRICAN AMERICAN > 60; LIPASE 53 U/L (23-300)
[2018-08-20 18:01] LABS: URINE APPEARANCE CLEAR (CLEAR); URINE BILIRUBIN SMALL (NEGATIVE); URINE BLOOD NEGATIVE (NEGATIVE); URINE COLOR YELLOW (YELLOW); URINE GLUCOSE (UA) 500 mg/dL (NEGATIVE); URINE LEUKOCYTE ESTERASE NEGATIVE Leu/uL (NEGATIVE); URINE PROTEIN TRACE mg/dL (<30 mg/dL); URINE UROBILINOGEN 0.2 E.U./dL (<1 E.U./dL)
[2018-08-20 18:07] LABS: URINE BACTERIA TRACE (NEG); URINE RBC 0 - 2 /hpf (0-2); URINE WBC NEGATIVE /hpf (0-6)
--- NOTE | 2018-08-20 22:08 | RAD ---
Date of service: 08/20/2018 PROCEDURE: CHEST RADIOGRAPH, 1 VIEW HISTORY: abd pain COMPARISON: 08/16/2018 FINDINGS: LUNGS: The lungs are well inflated and clear. PLEURA: No pneumothorax or pleural fluid seen. CARDIOVASCULAR: Normal. No aortic atherosclerotic calcifications present. OSSEOUS STRUCTURES: No significant abnormalities. VISUALIZED UPPER ABDOMEN: Normal. OTHER FINDINGS: None. IMPRESSION: No active pulmonary disease.
[2018-08-20] MEDS: Morphine 2 mg/ml ISec IVP PRN (23:12)
[2018-08-20] MEDS: Sodium Chloride 0.45% 1,000 ML IV SCH (23:24)
[2018-08-20] MEDS: Insulin Reg-MEDIUM-Coverage SC SCH (23:34)
--- NOTE | 2018-08-21 02:16 | HP ---
HISTORY OF PRESENT ILLNESS: I got a call from the ER doctor that she was back down in the emergency room with nausea, vomiting and abdominal pain. She was just discharged with gastroparesis, nausea, vomiting, intractable abdominal pain. She is also diabetic with greater than 400 blood sugar. She is a 53-year-old female who presents back into the emergency room again with a past medical history of hypertension, diabetes, COPD, asthma, colon and pancreatic cancer status post Whipple, chronic neck and back pain, GERD, substance abuse. She has had abdominal pain, nausea and vomiting for last 10-12 hours that would not go away. She was just in the hospital for the same thing and discharged the day before, and now she is back in the hospital again with the same thing not feeling well, cramping and nausea, vomiting, throwing up. History of a tubal ligation and cholecystectomy. Still smokes. No alcohol. History of treatment from chronic opioid use. ALLERGIES: SHE IS ALLERGIC TO TYLENOL CODEINE ALLERGY, IODINE. MEDICATIONS: She takes gabapentin, Lantus insulin, OxyContin, oxycodone from pain management on the outpatient. REVIEW OF SYSTEMS No acute vision or hearing changes. No sore throat. No shortness of breath or cough. No chest pain or palpitations. She has abdominal pain, worse on the left side; nausea; vomiting. No diarrhea or constipation. She is curled up in a ball with pain. No problems urinating. Some back pain. No neck pain. No rashes. No headache or dizziness. No anxiety. She has done this before. PHYSICAL EXAMINATION: VITAL SIGNS: She has a 99.4 temp, 98 pulse, 18 respiratory rate, 152/107 blood pressure, 99% O2 sat. GENERAL: She is little toxic, she is upset, abdominal pain, throwing up. HEENT: Head; atraumatic, normocephalic. Throat is dry. NECK: Supple. HEART: Regular rate. LUNGS: Decreased breath sounds, but clear. ABDOMEN: Distended. Mild guarding, no rebound. Decreased bowel sounds. EXTREMITIES: Have no edema. SKIN: From what I could tell is intact. LYMPHS: Thyroid midline. No palpable appreciable lymphadenopathy. She is here for gastroparesis, intractable nausea, vomiting, abdominal pain. She is a diabetic with hypertension and cancer history. We will get GI back then again, n.p.o., IV fluids, Zofran, Reglan and Protonix and also Endocrinology. Mayur Mcclendon DO JE
[2018-08-21] MEDS: Morphine 2 mg/ml ISec IVP PRN ×5 (03:38→21:14)
[2018-08-21] MEDS: Pantoprazole 40mg/100mL NS 40 MG/100 ML BAG IVPB SCH (05:16)
[2018-08-21 07:52] LABS: MEAN CELL VOLUME 77.4 fl (80.0-105.0); MEAN CORPUSCULAR HEMOGLOBIN 24.7 pg (25.0-35.0); MEAN CORPUSCULAR HGB CONC 31.9 g/dl (31.0-37.0); MEAN PLATELET VOLUME 8.5 fl (7.0-11.0); RBC 4.46 10^6/uL (3.5-6.1); RED CELL DISTRIBUTION WIDTH 15.5 % (11.5-14.5); WHITE BLOOD COUNT 3.8 10^3/uL (4.5-11.0)
[2018-08-21] MEDS: Insulin Reg-MEDIUM-Coverage SC SCH ×4 (08:13→21:29)
[2018-08-21 08:32] LABS: ALB/GLOB RATIO 1.4 (1.1-1.8); ALBUMIN 3.7 g/dL (3.0-4.8); ALT/SGPT 24 U/L (7-56); AST/SGOT 10 U/L (14-36); BLOOD UREA NITROGEN 10 mg/dL (7-21); CALCIUM 8.8 mg/dL (8.4-10.5); GFR NON-AFRICAN AMERICAN > 60
--- NOTE | 2018-08-21 09:30 | CON ---
DATE: 08/20/2018 LOCATION: Room# 573, but she is still in ER holding at this time. HISTORY OF PRESENT ILLNESS: This is a 53-year-old female with known history of type 2 insulin-requiring diabetes, presenting here with diffuse abdominal pain and supervening intractable vomiting episodes and apparently was just discharged yesterday from this hospital and is now being referred also at this time for diabetic evaluation and management. PAST MEDICAL HISTORY: As mentioned above, history of type 2 insulin-requiring diabetes, on a combination of Lantus given as 22 units b.i.d. and regular insulin given as 5 units t.i.d. with meals. History of hypertension and dyslipidemia. History of chronic obstructive lung disease and chronic asthmatic bronchitis with previous admissions for exacerbations of the same. History of cervical and lumbar disc disease with chronic upper and lower back pain. There is also a prior history of colon and pancreatic carcinoma with a previous Whipple's procedure undertaken thereof. FAMILY HISTORY: Positive for hypertension and diabetes. SOCIAL HISTORY: The patient has a supportive family and is currently an active smoker at this time. 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 REVIEW OF SYSTEMS: As mentioned above. Admits to generalized body weakness with episodic bouts of dizziness and lightheadedness, worse on the day of admission. Also admits to bifrontal headaches and visual blurring. No chest pains or palpitations or PND. Her oral intake has been variable with nausea, dyspepsia and supervening diffuse abdominal pain with episodic vomiting episodes prompting this ER consult and subsequent admission. ASSESSMENT: This is a 53-year-old female with uncontrolled and decompensated type 2 insulin-requiring diabetes, presenting here with diffuse abdominal pain with intractable vomiting episodes and underlying diffuse abdominal pain and is now being referred for diabetic evaluation and management. PLAN OF MANAGEMENT: As the patient has been kept n.p.o. initially on admission, we will continue the regular insulin coverage scale as ordered by the primary physician. After GI workup is undertaken and completed and after diet is advanced to solid food, then we can switch her over to a more physiologic basal and bolus insulin drug combination as indicated. We will continue the IV hydration as given and obtain serial chemistries and supplement accordingly as needed. A hemoglobin A1c will be done to confirm her prior glycemic control, and baseline thyroid function studies will be ordered. We will obtain serial chemistries and supplement accordingly as needed. We will follow. Adali Ferguson MD
--- NOTE | 2018-08-21 10:33 | RAD ---
Date of service: 08/20/2018 HISTORY: abd pain COMPARISON: None available. FINDINGS: BOWEL: The bowel gas pattern is nonspecific and nonobstructive. There is moderate amount of stool in the colon. No differential air-fluid levels. No free intraperitoneal air. BONES: Normal. OTHER FINDINGS: Surgical clips in the right upper quadrant are related to prior cholecystectomy. IMPRESSION: Nonspecific nonobstructive bowel gas pattern.
[2018-08-21] MEDS: Sodium Chloride 0.45% 1,000 ML IV SCH ×2 (12:05→21:30)
--- NOTE | 2018-08-21 12:53 | PN ---
DATE: 08/21/2018 SUBJECTIVE: I saw Marizol in bed. She is still having nauseousness and vomiting. She is not feeling well. She is having abdominal pain. She had this a few days ago, went home for a short period of time and happened again. PHYSICAL EXAMINATION: VITAL SIGNS: She has a 98.7 temperature, 60 pulse, 120/66 blood pressure, 20 respiratory rate, 98% O2 sat on room air. HEAD: Atraumatic, normocephalic. HEART: Regular rate. LUNGS: Decreased breath sounds, but clear. ABDOMEN: Soft, nontender. Positive bowel sounds. There is some mild guarding, no rebound. Decreased bowel sounds. Tenderness to palpation. EXTREMITIES: No edema. MEDICATIONS: She is currently on insulin coverage, morphine for pain, Neurontin, Norvasc, Protonix, IV Reglan IV, IV fluids and Zofran. She has a 3.8 white count, 11 hemoglobin, 34.5 hematocrit with 243 platelets. Sodium 137, potassium 4.1, BUN 10, creatinine 0.6,, GFR greater than 60, sugar is down to 279 from 420 which is better. Calcium 8.8, total bili is 0.3, AST is 10, ALT is 24, alk phos 84, total protein 6.3, albumin is 3.7. She is being seen by Endocrinology, is adjusting her medications. Waiting for GI to come in. He is still n.p.o. swallow and too nauseous. I will continue aggressive treatment and care. She is here for intractable nausea, vomiting, abdominal pain. Mayur Mcclendon DO MTDD
--- NOTE | 2018-08-21 15:18 | PN ---
DATE: 08/21/2018 ENDO FOLLOWUP NOTE LOCATION: In room 573. SUBJECTIVE: This is a 53-year-old female with known history of type 2 insulin-requiring diabetes, presenting here with intractable nausea, dyspepsia and vomiting with persistent abdominal pain, is still currently n.p.o. at this time as noted. Her glucose values are fluctuating as noted and the chemistries today showed a BUN of 10, sodium 137, potassium 4.1, chloride 104, CO2 of 23, glucose 279 and creatinine 0.6. So at this time, we will continue the IV hydration as given with normal saline ongoing at this time. We will obtain serial chemistries and supplement accordingly as needed. We will also add basal insulin given as Levemir at 10 units subcu at bedtime b.i.d. to be given even if she is n.p.o. and will be given at bedtime as ordered. We will continue the medium scale coverage scale with Humalog insulin as ordered by the primary physician for now. As they complete the GI workup or as they advance her diet to solid food, then we can switch her back to a more physiologic basal and bolus insulin drug combination as indicated. We will follow and advise accordingly. Adali Ferguson MD
--- NOTE | 2018-08-21 15:41 | CP.PCM.PN ---
<Annette Haile - Last Filed: 08/21/18 15:41> Subjective - Date & Time of Evaluation Date of Evaluation: 08/21/18 Time of Evaluation: 09:00 - Subjective Subjective: GI Fellow PGY5 Consult Note This is a 52 year old female with a PMH of colon CA s/p subtotal colectomy, pancreatic CA s/p whipple procedure, uncontrolled IDDM with gastroparesis and who is presenting with nausea and vomiting. Pt has had multiple prior admissions for intractable N/V and found to have uncontrolled blood glucose at that time. She was discharged two days ago. On readmission pt's BG was 420. She had an EGD 08/2017 and found to have bile gastritis and gastroparesis, pt was referred to [facility]. She had no dentition and eats regular food including salads and meats at home. ROS: A 12pt ROS was negative except as above PMH: as above PSH: whipple, subtotal colectomy SH: smokes 1/2 to 1 ppd for multiple years, sporadic alcohol, denies illicits FH: Neg for colon cancer Objective - Vital Signs/Intake and Output Vital Signs (last 24 hours): Temp Pulse Resp BP Pulse Ox 98.4 F 52 L 18 136/84 98 08/21/18 14:00 08/21/18 14:00 08/21/18 14:00 08/21/18 14:00 08/21/18 14:00 Intake and Output: 08/21/18 08/21/18 06:59 18:59 Intake Total 640 Balance 640 - Medications Medications: Current Medications Amlodipine Besylate (Norvasc) 5 mg PO DAILY [facility] Last Admin: 08/21/18 10:47 Dose: 5 mg Gabapentin (Neurontin) 100 mg PO BID [facility]; Protocol Last Admin: 08/21/18 10:47 Dose: 100 mg Sodium Chloride (Sodium Chloride 0.45%) 1,000 mls @ 80 mls/hr IV .[id number] [facility] Last Admin: 08/21/18 12:05 Dose: 80 mls/hr Pantoprazole Sodium (Protonix 40mg Ivpb) 40 mg in 100 mls @ 200 mls/hr IVPB 0600 [facility] Last Admin: 08/21/18 05:16 Dose: 200 mls/hr Insulin Detemir (Levemir) 10 unit SC HS [facility] Insulin Human Regular (Humulin R Med) 0 units SC [facility]; Protocol Last Admin: 08/21/18 12:00 Dose: 5 units Metoclopramide HCl (Reglan) 10 mg IVP ACHS [facility] Last Admin: 08/21/18 12:00 Dose: 10 mg Morphine Sulfate (Morphine) 2 mg IVP Q4 PRN PRN Reason: Pain, moderate (4-7) Last Admin: 08/21/18 12:09 Dose: 2 mg Ondansetron HCl (Zofran Inj) 4 mg IVP Q6H PRN PRN Reason: Nausea/Vomiting Last Admin: 08/20/18 23:24 Dose: 4 mg - Labs Labs: 08/21/18 07:00 08/21/18 07:15 - Constitutional Appears: Non-toxic, No Acute Distress - Head Exam Head Exam: ATRAUMATIC, NORMAL INSPECTION, NORMOCEPHALIC - Eye Exam Eye Exam: EOMI, Normal appearance, PERRL Pupil Exam: PERRL - ENT Exam ENT Exam: Mucous Membranes Moist - Neck Exam Neck Exam: Full ROM, Normal Inspection - Respiratory Exam Respiratory Exam: Clear to Ausculation Bilateral, NORMAL BREATHING PATTERN - Cardiovascular Exam Cardiovascular Exam: REGULAR RHYTHM, RRR, +S1, +S2 - GI/Abdominal Exam GI & Abdominal Exam: Soft, Normal Bowel Sounds - Rectal Exam Rectal Exam: Deferred - Extremities Exam Extremities Exam: Full ROM, Normal Inspection - Back Exam Back Exam: Full ROM, NORMAL INSPECTION - Neurological Exam Neurological Exam: Alert, Awake, Oriented x3 - Psychiatric Exam Psychiatric exam: Normal Affect, Normal Mood - Skin Skin Exam: Dry, Intact, Normal Color, Warm Assessment and Plan - Assessment and Plan (Free Text) Assessment: This is a 52yF presenting with complaints of N/V. 1. N/V 2. Uncontrolled BG 3. Gastroparesis 4. Hx of pancreatic ca s/p whipple Plan: -Continue supportive care with pain control and anti-emetics -Recommend tight glycemic control -N/V from gastroparesis -Discussed better nutrition and pureed food for gastroparesis -Antiemetics -EGD 08/2017 with bile gastritis -Will consider EGD if persistent N/V -Further medical care per primary team -Will continue to follow closely <Alonzo Ramirez - Last Filed: 08/21/18 15:57> Objective - Vital Signs/Intake and Output Vital Signs (last 24 hours): Temp Pulse Resp BP Pulse Ox 98.4 F 52 L 18 136/84 98 08/21/18 14:00 08/21/18 14:00 08/21/18 14:00 08/21/18 14:00 08/21/18 14:00 Intake and Output: 08/21/18 08/21/18 06:59 18:59 Intake Total 640 Balance 640 - Medications Medications: Current Medications Amlodipine Besylate (Norvasc) 5 mg PO DAILY [facility] Last Admin: 08/21/18 10:47 Dose: 5 mg Gabapentin (Neurontin) 100 mg PO BID [facility]; Protocol Last Admin: 08/21/18 10:47 Dose: 100 mg Sodium Chloride (Sodium Chloride 0.45%) 1,000 mls @ 80 mls/hr IV .[id number] [facility] Last Admin: 08/21/18 12:05 Dose: 80 mls/hr Pantoprazole Sodium (Protonix 40mg Ivpb) 40 mg in 100 mls @ 200 mls/hr IVPB 0600 [facility] Last Admin: 08/21/18 05:16 Dose: 200 mls/hr Insulin Detemir (Levemir) [address] [facility] Insulin Human Regular (Humulin R Med) 0 units SC [facility]; Protocol Last Admin: 08/21/18 12:00 Dose: 5 units Metoclopramide HCl (Reglan) 10 mg IVP [facility] Last Admin: 08/21/18 12:00 Dose: 10 mg Morphine Sulfate (Morphine) 2 mg IVP Q4 PRN PRN Reason: Pain, moderate (4-7) Last Admin: 08/21/18 12:09 Dose: 2 mg Ondansetron HCl (Zofran Inj) 4 mg IVP Q6H PRN PRN Reason: Nausea/Vomiting Last Admin: 08/20/18 23:24 Dose: 4 mg - Labs Labs: 08/21/18 07:00 08/21/18 07:15 Attending/Attestation - Attestation I have personally seen and examined this patient.: Yes I have fully participated in the care of the patient.: Yes I have reviewed all pertinent clinical information, including history, physical exam and plan: Yes Notes (Text): 08/21/18 15:55 The pt was interviewed and examined. Findings, assessment and recommendations discussed with Dr. Wiseman and reflected above. Gastroparesis diet Keep glucose under 180, if possible.
[2018-08-21] MEDS ORDERED: Insulin Detemir 100 units/ml Vial (Levemir) SC SCH (22:00)
[2018-08-22] MEDS: Morphine 2 mg/ml ISec IVP PRN ×6 (01:38→23:25)
[2018-08-22] MEDS: Pantoprazole 40mg/100mL NS 40 MG/100 ML BAG IVPB SCH (05:52)
[2018-08-22] MEDS: Insulin Reg-MEDIUM-Coverage SC SCH ×2 (08:40→11:35)
[2018-08-22 09:14] LABS: BLOOD UREA NITROGEN 7 mg/dL (7-21); CALCIUM 8.9 mg/dL (8.4-10.5); GFR NON-AFRICAN AMERICAN > 60
[2018-08-22 09:15] LABS: ALB/GLOB RATIO 1.3 (1.1-1.8); ALBUMIN 3.6 g/dL (3.0-4.8); ALT/SGPT 21 U/L (7-56); AST/SGOT 22 U/L (14-36); HDL CHOLESTEROL 44 mg/dL (29-60); LDL CHOLESTEROL 38 mg/dL (0-129)
[2018-08-22] MEDS ORDERED: Magnesium Sulfate 1 gm in D5W 1 GM/100 ML BAG IVPB ONE (09:39)
--- NOTE | 2018-08-22 11:06 | CP.PCM.PN ---
<Bennett Velasquez - Last Filed: 08/22/18 16:43> Subjective - Date & Time of Evaluation Date of Evaluation: 08/22/18 Time of Evaluation: 09:30 - Subjective Subjective: PGY-4 GI Fellow Prog Note Pt lying in bed when seen this AM. State abd pain and nausea improved. Asking to advance diet from NPO. 5 point ROS negative other than stated above Objective - Vital Signs/Intake and Output Vital Signs (last 24 hours): Temp Pulse Resp BP Pulse Ox 98.8 F 69 20 147/83 97 08/22/18 08:20 08/22/18 09:53 08/22/18 08:20 08/22/18 09:53 08/22/18 08:20 Intake and Output: 08/22/18 08/22/18 06:59 18:59 Intake Total 0 Balance 0 - Medications Medications: Current Medications Amlodipine Besylate (Norvasc) 5 mg PO DAILY REPLACED BY [facility] Last Admin: 08/22/18 09:53 Dose: 5 mg Gabapentin (Neurontin) 100 mg PO BID REPLACED BY [facility]; Protocol Last Admin: 08/22/18 10:51 Dose: Not Given Sodium Chloride (Sodium Chloride 0.45%) 1,000 mls @ 80 mls/hr IV .[id number] REPLACED BY [facility] Last Admin: 08/21/18 21:30 Dose: 80 mls/hr Pantoprazole Sodium (Protonix 40mg Ivpb) 40 mg in 100 mls @ 200 mls/hr IVPB 0600 REPLACED BY [facility] Last Admin: 08/22/18 05:52 Dose: 200 mls/hr Insulin Detemir (Levemir) 10 unit SC HS REPLACED BY [facility] Last Admin: 08/21/18 21:22 Dose: 10 units Insulin Human Regular (Humulin R Med) 0 units SC [facility] REPLACED BY [facility]; Protocol Last Admin: 08/22/18 08:40 Dose: 1 units Metoclopramide HCl (Reglan) 10 mg IVP ACHS REPLACED BY [facility] Last Admin: 08/22/18 08:40 Dose: 10 mg Morphine Sulfate (Morphine) 2 mg IVP Q4 PRN PRN Reason: Pain, moderate (4-7) Last Admin: 08/22/18 09:52 Dose: 2 mg Ondansetron HCl (Zofran Inj) 4 mg IVP Q6H PRN PRN Reason: Nausea/Vomiting Last Admin: 08/22/18 01:36 Dose: 4 mg - Labs Labs: 08/21/18 07:00 08/22/18 07:00 - Constitutional Appears: No Acute Distress, Chronically Ill - Head Exam Head Exam: ATRAUMATIC, NORMAL INSPECTION - Eye Exam Eye Exam: EOMI. absent: Conjunctival injection, Scleral icterus - ENT Exam ENT Exam: Mucous Membranes Dry, Normal External Ear Exam. absent: Mucous Membranes Moist - Respiratory Exam Respiratory Exam: NORMAL BREATHING PATTERN. absent: Accessory Muscle Use, Respiratory Distress - GI/Abdominal Exam GI & Abdominal Exam: Soft, Normal Bowel Sounds (exam limited due to obesity). absent: Bruit, Distended, Firm, Guarding, Rigid, Tenderness, Mass, Organomegaly Assessment and Plan - Assessment and Plan (Free Text) Assessment: 52F with recurrent admissions for abdominal pain, vomiting #Intractable nausea and vomiting - EGD 08/2017 with bile gastritis, esophageal web #Gastroparesis: Suspect symptoms related to flare. BG 420 on admission and persistently >200 #T2DM #Hx of pancreatic ca s/p whipple #Hx of colon CA s/p subtotal colectomy #Medical non-adherence Plan: -Tight glycemic control, BG less than 200 goal -Continue IVF and Zofran as needed. -Liquid diet with Carb control today, ADAT tomorrow if symptoms improving -Avoid opiates as able (can worsen gastroparesis) -No plan for endoscopic evaluation at this time -Needs to follow up with primary GI for colonoscopy surveillance, she states her next appt with [facility] is in September [address] Rincon. Please see attestation for further recs/changes. <Martinez Rincon - Last Filed: 08/22/18 17:06> Objective - Vital Signs/Intake and Output Vital Signs (last 24 hours): Temp Pulse Resp BP Pulse Ox 98.8 F 69 20 147/83 97 08/22/18 08:20 08/22/18 09:53 08/22/18 08:20 08/22/18 09:53 08/22/18 08:20 Intake and Output: 08/22/18 08/22/18 06:59 18:59 Intake Total 0 Balance 0 - Medications Medications: Current Medications Amlodipine Besylate (Norvasc) 5 mg PO DAILY REPLACED BY [facility] Last Admin: 08/22/18 09:53 Dose: 5 mg Gabapentin (Neurontin) 100 mg PO BID REPLACED BY [facility]; Protocol Last Admin: 08/22/18 10:51 Dose: Not Given Sodium Chloride (Sodium Chloride 0.45%) 1,000 mls @ 80 mls/hr IV .[id number] REPLACED BY [facility] Last Admin: 08/22/18 15:02 Dose: 80 mls/hr Insulin Detemir (Levemir) 14 unit SC HS REPLACED BY [facility] Insulin Human Lispro (Humalog Low) 0 units SC [facility]; Protocol Insulin Human Lispro (Humalog) 4 units SC AC REPLACED BY [facility] Metoclopramide HCl (Reglan) 10 mg IVP [facility] REPLACED BY [facility] Last Admin: 08/22/18 11:53 Dose: 10 mg Morphine Sulfate (Morphine) 2 mg IVP Q4 PRN PRN Reason: Pain, moderate (4-7) Last Admin: 08/22/18 14:10 Dose: 2 mg Ondansetron HCl (Zofran Inj) 4 mg IVP Q6H PRN PRN Reason: Nausea/Vomiting Last Admin: 08/22/18 01:36 Dose: 4 mg Pantoprazole Sodium (Protonix Inj) 40 mg IVP 0600 REPLACED BY [facility] - Labs Labs: 08/21/18 07:00 08/22/18 07:00 Attending/Attestation - Attestation I have personally seen and examined this patient.: Yes I have fully participated in the care of the patient.: Yes I have reviewed all pertinent clinical information, including history, physical exam and plan: Yes Notes (Text): 08/22/18 17:04 I have seen and examined patient with GI fellow. No acute events overnight, she is seen resting in bed comfortably. She reports ongoing mild epigastric pain, though improved compared to prior. She denies nausea, vomiting, fever/chills. Tolerating PO liquids without difficulty. DM - uncontrolled Nausea, vomiting - gastroparesis History of pancreatic CA s/p whipple History of colon CA s/p subtotal colectomy - Liquid diet as tolerated - Continue with supportive care, IVF hydration - Anti-emetic therapy PRN - Maintain strict glycemic control - Will attempt to advance diet tomorrow morning pending patient clinical progress
--- NOTE | 2018-08-22 13:20 | PN ---
DATE: 08/22/2018 SUBJECTIVE: I saw her in the room today. She is still nauseous, but did not throw up. We are now feeding her. She has had IV fluids running, insulin coverage, Levemir, morphine for pain, Neurontin, Norvasc, Protonix IV, Reglan IV, Zofran IV. This is the second time she is in the hospital in the last 6 days due to gastroparesis. PHYSICAL EXAMINATION: VITAL SIGNS: 98.8 temp, 62 pulse, 136/90 blood pressure, 20 respiratory rate, 97% O2 sat on room air. HEENT: Head is atraumatic, normocephalic. HEART: Regular rate. LUNGS: Decreased breath sounds, but clear. ABDOMEN: Soft. Decreased bowel sounds. No guarding, no rebound. EXTREMITIES: No edema. LABORATORY DATA: She has a 3.8 white count, 11 hemoglobin, 34.5 hematocrit with 243 platelets. Sodium 138 potassium 3.8, BUN 7, creatinine 0.7, GFR is greater than 60, sugar is 208, calcium is 8.9, phosphorus 4.4, magnesium 1.5, little bit low. AST of 22, ALT is 21, alk phos is 80, total protein 6.4, albumin 3.6, triglycerides 190, cholesterol is 183, TSH is low at 0.27. ASSESSMENT AND PLAN: She is being seen by Endocrinology and I believe that is GI. X-ray of the abdomen showed nonspecific gas pattern, gastroparesis type, keep glucose under 180. If GI tells me, I could discharge her, I will discharge her. She is currently on p.o. diet. Waiting for them to increase the diet on her Continue aggressive treatment and care on Marizol Parker who has got gastroparesis. Mayur Mcclendon DO MTDD
[2018-08-22] MEDS: Sodium Chloride 0.45% 1,000 ML IV SCH (15:02)
[2018-08-22] MEDS: Insulin Lispro 1 UNITS/0.01 ML SC SCH (19:19)
[2018-08-22] MEDS: Insulin Lispro (humaLOG) LOW Coverage SC SCH ×2 (19:21→22:51)
[2018-08-22] MEDS ORDERED: Insulin Detemir 100 units/ml Vial (Levemir) SC SCH (22:00)
--- NOTE | 2018-08-22 23:32 | PN ---
DATE: 08/22/2018 SUBJECTIVE: This is a 53-year-old female with recent uncontrolled type 2 insulin-requiring diabetes, presenting here with diffuse abdominal pain and concomitant nausea, dyspepsia and intractable vomiting and has since then improved clinically and metabolically as noted thereof. Her oral intake, however, remains quite suboptimal and variable and has been advanced today to a liquid diet as noted. Her hemoglobin A1c is quite elevated at 10.6%, indicative of suboptimal metabolic control of her diabetic condition even prior to this admission. Her glucose values have ranged from 197 to 231 mg/dL. Her chemistries showed a BUN of 7, sodium 138, potassium 3.8, chloride 104, CO2 of 28, glucose 208 and creatinine 0.7. So at this time, we will modify once again her basal and bolus insulin regimen and actually add prandial insulin now with Humalog given as 4 units subcu t.i.d. before meals to start at dinner time today as ordered. We will also modify her coverage scale to obviate hypoglycemia and detailed orders have been given. We will also increase her basal insulin with Levemir to be given as 14 units subcu at bedtime daily to start tonight. We will continue also the IV hydration as given and obtain serial chemistries and supplement accordingly as needed. Once her oral intake is advanced to solid food, then we will titrate her dose regimen accordingly to optimize metabolic control. We will follow with you. Adali Ferguson MD
[2018-08-23] MEDS: Morphine 2 mg/ml ISec IVP PRN ×2 (04:02→08:10)
[2018-08-23] MEDS: Sodium Chloride 0.45% 1,000 ML IV SCH (04:03)
[2018-08-23 07:45] LABS: HEMOGLOBIN 10.1 g/dL (12.0-16.0); MEAN CELL VOLUME 77.1 fl (80.0-105.0); MEAN CORPUSCULAR HEMOGLOBIN 24.6 pg (25.0-35.0); MEAN CORPUSCULAR HGB CONC 31.9 g/dl (31.0-37.0); MEAN PLATELET VOLUME 8.1 fl (7.0-11.0); RBC 4.11 10^6/uL (3.5-6.1)
[2018-08-23 08:08] VITALS: RESP 20; TEMP 99; O2SAT 97
[2018-08-23] MEDS: Insulin Lispro (humaLOG) LOW Coverage SC SCH ×2 (08:09→11:58)
[2018-08-23] MEDS: Insulin Lispro 1 UNITS/0.01 ML SC SCH ×2 (08:10→11:59)
[2018-08-23 08:11] LABS: ALB/GLOB RATIO 1.4 (1.1-1.8); ALBUMIN 3.5 g/dL (3.0-4.8); ALT/SGPT 26 U/L (7-56); AST/SGOT 18 U/L (14-36); BLOOD UREA NITROGEN 6 mg/dL (7-21); CALCIUM 8.9 mg/dL (8.4-10.5); GFR NON-AFRICAN AMERICAN > 60
[2018-08-23 09:30] VITALS: BP 136/87; PULSE 67
--- NOTE | 2018-08-23 10:19 | DS ---
HISTORY OF PRESENT ILLNESS: She is going to have clears for breakfast and increase her diet to regular for lunch. I am hoping that if she eats well for lunch, we can discharge her today. She was here a few days ago, went home, got sick again, came back with gastroparesis, but she does look better today. I am hoping she is through it. PHYSICAL EXAMINATION: VITAL SIGNS: She has 99 temperature, 55 pulse, 145/75 blood pressure, 20 respiratory rate, 97% O2 sat on room air. HEENT: Head: Atraumatic and normocephalic. HEART: Regular rate. LUNGS: Clear to auscultation. ABDOMEN: Soft and nontender. Positive bowel sounds with good bowel sounds. Nice and soft. No guarding, no rebound, no palpable tenderness. EXTREMITIES: No edema. She is currently on insulin, Levemir, Neurontin, Norvasc, Protonix, Reglan, IV fluids and Zofran. LABORATORY DATA: She has 3 white count, 10.1 hemoglobin, 31.7 hematocrit with 254 platelets. Sodium 137, potassium of 4, BUN is 6, creatinine GFR is 60, sugar is 261. Calcium is 8.9, total bili is 0.3, AST is 18, ALT is 26, alk phos 72, total protein is 6 and magnesium is 1.6, close enough. I am hoping to discharge her if she could eat lunch today. I have put the order in, and if she does well, I will see her on the outpatient. Marizol Parker with gastroparesis, abdominal pain and diabetic. Mayur Mcclendon DO MTDJovanni
--- NOTE | 2018-08-23 10:25 | CP.PCM.PN ---
Subjective - Date & Time of Evaluation Date of Evaluation: 08/23/18 Time of Evaluation: 08:00 - Subjective Subjective: PGY-4 GI Fellow Prog Note Pt lying in bed when seen this AM. States N/V improve, some residual abd pain but better and tolerating liquid diet. Requests diet to be advanced. 5 point ROS negative other than stated above Objective - Vital Signs/Intake and Output Vital Signs (last 24 hours): Temp Pulse Resp BP Pulse Ox 99 F 67 20 136/87 97 08/23/18 07:00 08/23/18 09:23 08/23/18 07:00 08/23/18 09:23 08/23/18 07:00 Intake and Output: 08/23/18 08/23/18 06:59 18:59 Intake Total 360 Output Total 100 Balance 260 - Medications Medications: Current Medications Amlodipine Besylate (Norvasc) 5 mg PO DAILY [facility] Last Admin: 08/23/18 09:23 Dose: 5 mg Gabapentin (Neurontin) 100 mg PO BID [facility]; Protocol Last Admin: 08/23/18 09:23 Dose: 100 mg Sodium Chloride (Sodium Chloride 0.45%) 1,000 mls @ 80 mls/hr IV .[id number] [facility] Last Admin: 08/23/18 04:03 Dose: 80 mls/hr Insulin Detemir (Levemir) 14 unit SC HS [facility] Last Admin: 08/22/18 22:48 Dose: 14 unit Insulin Human Lispro (Humalog Low) 0 units SC ACHS [facility]; Protocol Last Admin: 08/23/18 08:09 Dose: 2 unit Insulin Human Lispro (Humalog) 4 units SC AC [facility] Last Admin: 08/23/18 08:10 Dose: 2 unit Metoclopramide HCl (Reglan) 10 mg IVP ACHS [facility] Last Admin: 08/23/18 08:10 Dose: 10 mg Ondansetron HCl (Zofran Inj) 4 mg IVP Q6H PRN PRN Reason: Nausea/Vomiting Last Admin: 08/23/18 04:03 Dose: 4 mg Pantoprazole Sodium (Protonix Inj) 40 mg IVP 0600 [facility] Last Admin: 08/23/18 05:55 Dose: 40 mg - Labs Labs: 08/23/18 07:20 08/23/18 07:20 - Constitutional Appears: Well, No Acute Distress - Head Exam Head Exam: ATRAUMATIC, NORMAL INSPECTION - Eye Exam Eye Exam: EOMI. absent: Conjunctival injection, Scleral icterus - ENT Exam ENT Exam: Mucous Membranes Moist, TM's Normal Bilaterally. absent: Mucous Membranes Dry - Respiratory Exam Respiratory Exam: NORMAL BREATHING PATTERN. absent: Accessory Muscle Use, Respiratory Distress - GI/Abdominal Exam GI & Abdominal Exam: Soft, Tenderness (LUQ w/o guarding), Normal Bowel Sounds. absent: Bruit, Distended, Firm, Guarding, Rigid, Hernia, Mass, Organomegaly, Pulsatile Mass Additional comments: obese limiting exam Assessment and Plan - Assessment and Plan (Free Text) Assessment: 52F with recurrent admissions for abdominal pain, vomiting #Intractable nausea and vomiting - EGD 08/2017 with bile gastritis, esophageal web #Gastroparesis: Suspect symptoms related to flare. BG 420 on admission and persistently >200 #T2DM #Hx of pancreatic ca s/p whipple #Hx of colon CA s/p subtotal colectomy Plan: -Tight glycemic control, BG less than 200 goal -Advanced diet to carb control, low fiber, small, frequent meals -Avoid opiates as able (can worsen gastroparesis) -No plan for endoscopic evaluation at this time -Needs to follow up with primary GI for colonoscopy surveillance, she states her next appt with [facility] is in September 2018 -Supportive care Thank you for the consult. Will sign off. Please page if questions. Pt discussed with Dr. Rincon. Please see attestation for further recs/changes.
--- NOTE | 2018-08-23 17:59 | PN ---
DATE: 08/23/2018 ENDOCRINOLOGY FOLLOWUP NOTE LOCATION: Room 573. SUBJECTIVE: This is a 53-year-old female with recent uncontrolled type 2 insulin-requiring diabetes presenting here with abdominal pain and intractable vomiting and has since then improved clinically and metabolically as noted thereof. Her glucose levels are fluctuating, but improved and the glucose levels overnight have ranged from 212-249 mg/dL. Her chemistry showed a BUN of 6, sodium 137, potassium 4, chloride 102, CO2 31, glucose 261 and creatinine 0.7. So at this time, we will continue the modified basal and bolus insulin regimen and increase the Humalog to 8 units subcu t.i.d. before meals to start today. We will also increase her basal insulin with Levemir to be given as 20 units subcu at bedtime daily as given. However, she is scheduled for possible discharge today. So she has been advised to resume her home insulin drug combination as given as she was using Lantus with Humalog insulin as ordered. She will follow with her medical doctor for outpatient diabetic management. We will follow. Adali Ferguson MD
== END 2018-08-23 14:33 | disposition home or self-care (01) | DRG 74 ==
LOC: ED 15:13 → ERH 19:29 → 5RSO 21:50
PROVIDERS: ADMIT Family Medicine; ATTEND Family Medicine
DX: E11.43 Type 2 diabetes mellitus with diabetic autonomic (poly)neuropathy (principal); K31.84 Gastroparesis; E11.65 Type 2 diabetes mellitus with hyperglycemia; I10 Essential (primary) hypertension; J44.9 Chronic obstructive pulmonary disease, unspecified; K21.9 Gastro-esophageal reflux disease without esophagitis; F17.200 Nicotine dependence, unspecified, uncomplicated; E78.5 Hyperlipidemia, unspecified; Z91.19 Patient's noncompliance with other medical treatment and regimen; Z85.07 Personal history of malignant neoplasm of pancreas; Z90.411 Acquired partial absence of pancreas; Z79.4 Long term (current) use of insulin; Z85.038 Personal history of other malignant neoplasm of large intestine; Z90.49 Acquired absence of other specified parts of digestive tract

== ENCOUNTER 2018-09-13 10:52 | Emergency (ER) | payer BC, OTHER ==
[2018-09-13 10:52] VITALS: BMI 26.6
[2018-09-13 11:12] VITALS: RESP 18; TEMP 98.5; O2SAT 98
--- NOTE | 2018-09-13 11:37 | ED PDOC ---
Arrival/HPI - General Chief Complaint: Back Pain Historian: Patient - History of Present Illness Narrative History of Present Illness (Text): 09/13/18 11:29 53 year old female, whose past medical history includes hypertension, IDDM, COPD, asthma, colon/pancreatic cancer s/p Whipple procedure, arthritis, sciatica, chronic neck/back pain, GERD, and substance abuse, presents to the ED complaining of lower back discomfort since Wednesday. Patient states she was on the lightrail on , when she lost balance and fell onto her buttocks. Patient was able to ambulate without any difficulty following the incident. Patient states similar incident on Wednesday when she lost balance and fell at home. Patient denies any head injury or loss of consciousness during either incidents. Patient states exacerbation of her chronic lower back pain radiating to her left leg following the incidents, prompting her to present to the ED for medical evaluation. Patient states symptoms are similar to her previous sciatica pain. Patient denies any other associated medical complaints. Patient denies any fever, chills, nausea, vomiting, abdominal pain, headache, numbness/tingling, neck pain, dizziness, urinary symptoms or any other complaints. Patient admits to smoking occasionally upto 1 pack a day. Patient denies any drug or alcohol use. Time/Duration: < week Symptom Onset: Gradual Symptom Course: Unchanged Quality: Aching Activities at Onset: Light Context: Home Past Medical History - Provider Review Nursing Documentation Reviewed: Yes - Past History Past History: Non-Contributing - Infectious Disease Hx of Infectious Diseases: None - Tetanus Immunization Tetanus Immunization: Unknown - Cardiac Hx Cardiac Disorders: Yes Hx Hypertension: Yes Hx Pacemaker: No - Pulmonary Hx Respiratory Disorders: Yes Hx Asthma: Yes Hx Chronic Obstructive Pulmonary Disease (COPD): Yes - Neurological Hx Neurological Disorder: Yes Hx Dizziness: Yes (NEAR SYNCOPE) - HEENT Hx HEENT Disorder: No - Renal Hx Renal Disorder: No - Endocrine/Metabolic Hx Diabetes Mellitus Type 2: Yes - Hematological/Oncological Hx Cancer: No - Integumentary Hx Dermatological Disorder: No - Musculoskeletal/Rheumatological Hx Musculoskeletal Disorders: (CHRONIC NECK AND PBACK PAIN) Hx Arthritis: Yes Hx Falls: No - Gastrointestinal Hx Gastrointestinal Disorders: Yes (PANCRATIC CA,COLON CA WITH H/O WHIPPLE PROCEDURE) Hx Gastroesophageal Reflux: Yes Other/Comment: CONSTIPATION,GASTRITIS,GASTROPARESIS. - Genitourinary/Gynecological Hx Genitourinary Disorders: Yes Hx Urinary Tract Infection: Yes Other/Comment: Tubal ligation - Psychiatric Hx Psychophysiologic Disorder: No Hx Substance Use: Yes (CHRONIC OPIATE USE .H/O OF TREATMENT) Other/Comment: Hx substance abuse treatment - Surgical History Hx Cholecystectomy: Yes Hx Mastectomy: No - Anesthesia Hx Anesthesia: Yes Hx Anesthesia Reactions: No Hx Malignant Hyperthermia: No - Suicidal Assessment Feels Threatened In Home Enviroment: No Family/Social History - Physician Review Nursing Documentation Reviewed: Yes Family/Social History: Unknown Family HX Smoking Status: Current Some Days Smoker Hx Alcohol Use: No Hx Substance Use: Yes (CHRONIC OPIATE USE .H/O OF TREATMENT) Hx Substance Use Treatment: Yes Allergies/Home Meds Allergies/Adverse Reactions: Allergies acetaminophen [From Tylenol-Codeine] Allergy (Verified 09/13/18 11:12) RASH codeine Allergy (Verified 09/13/18 11:12) VOMITING iodine Allergy (Verified 09/13/18 11:12) RASH Home Medications: Home Meds Medication Instructions Recorded Confirmed RX: Gabapentin [Neurontin] 100 mg PO BID 12/12/17 08/16/18 RX: Insulin Glargine, Recombina 22 unit SQ BID 03/10/18 08/16/18 [Lantus] RX: Insulin Human Regular-MED 5 units SC TID 03/10/18 08/16/18 [HumuLIN R MED] RX: Oxycodone HCl/Acetaminophen 1 each PO PRN PRN 06/22/18 08/16/18 [Percocet 10-325 mg Tablet] Review of Systems - Physician Review All systems were reviewed & negative as marked: Yes - Review of Systems Constitutional: absent: Fevers Respiratory: absent: SOB, Cough Cardiovascular: absent: Chest Pain Gastrointestinal: absent: Abdominal Pain, Diarrhea, Nausea, Vomiting Genitourinary Female: absent: Dysuria, Urine Output Changes Musculoskeletal: Back Pain. absent: Neck Pain Neurological: absent: Headache, Dizziness Physical Exam Vital Signs Reviewed: Yes Vital Signs Temp Pulse Resp BP Pulse Ox 09/13/18 11:10 98.5 F 92 H 18 135/93 H 98 Temperature: Afebrile Blood Pressure: Normal Pulse: Regular Respiratory Rate: Normal Appearance: Positive for: Well-Appearing, Non-Toxic, Comfortable Pain Distress: None Mental Status: Positive for: Alert and Oriented X 3 - Systems Exam Head: Present: Atraumatic, Normocephalic Pupils: Present: PERRL Extroacular Muscles: Present: EOMI Conjunctiva: Present: Normal Neck: Present: Normal Range of Motion. No: MIDLINE TENDERNESS, Paraspinal Tenderness Respiratory/Chest: Present: Clear to Auscultation, Good Air Exchange. No: Respiratory Distress, Accessory Muscle Use Cardiovascular: Present: Regular Rate and Rhythm, Normal S1, S2. No: Murmurs Abdomen: No: Tenderness, Distention, Peritoneal Signs Back: Present: Pain with Leg Raise (Positive left leg straight leg test @ 30 degress) Upper Extremity: Present: Normal Inspection. No: Cyanosis, Edema Lower Extremity: Present: Normal Inspection. No: Edema Neurological: Present: GCS=15, CN II-XII Intact, Speech Normal Skin: Present: Warm, Dry, Normal Color. No: Rashes Psychiatric: Present: Alert, Oriented x 3, Normal Insight, Normal Concentration Medical Decision Making ED Course and Treatment: 09/13/18 11:38 Impression: 53 year old female presents to the Emergency department complaining of lower back pain. acute on chronic Plan: -- CT of Head -- X-ray of Lumbar spine -- Flexeril -- Motrin -- Reassess and disposition Prior Visits: Notes and results from previous visits were reviewed. Progress Notes: 09/13/18 12:18 CT of head reviewed by radiologist, shows no acute intracranial findings. 09/13/18 12:41 X-ray of Lumbar spine reviewed by radiologist, shows: No fracture or spondylolisthesis appreciable. Limited inferior lumbar facet joint arthrosis.. pt aware of results. feels better now. stable gait. stable for dc. 09/13/18 19:55 - RAD Interpretation [employer] Installer: Radiologist - Scribe Statement The provider has reviewed the documentation as recorded by the Scribe Freda Meza. All medical record entries made by the Scribe were at my direction and personally dictated by me. I have reviewed the chart and agree that the record accurately reflects my personal performance of the history, physical exam, medical decision making, and the department course for this patient. I have also personally directed, reviewed, and agree with the discharge instructions and disposition. Disposition/Present on Arrival - Present on Arrival Any Indicators Present on Arrival: Yes History of DVT/PE: No History of Uncontrolled Diabetes: Yes Urinary Catheter: No History of Decub. Ulcer: No History Surgical Site Infection Following: None - Disposition Have Diagnosis and Disposition been Completed?: Yes Diagnosis: Acute exacerbation of chronic low back pain Disposition: HOME/ ROUTINE Disposition Time: 12:40 Patient Plan: Discharge Condition: IMPROVED Discharge Instructions (ExitCare): Low Back Pain in Adults Additional Instructions: follow up with your doctor Dr leija in 2 days for reevaluation return to the emergency department with any worsening or concerning symptoms Prescriptions: Ibuprofen [Motrin Tab] 600 mg PO Q6 PRN #10 tab PRN Reason: Pain, Moderate (4-7) Referrals: Ronnell Sue MD [Primary Care Provider] - Follow up with primary Forms: [employer] (Swedish)
--- NOTE | 2018-09-13 12:15 | CT ---
Date of service: 09/13/2018 PROCEDURE: CT HEAD WITHOUT CONTRAST. HISTORY: multiple falls COMPARISON: 06/23/2018 TECHNIQUE: Axial computed tomography images were obtained through the head/brain without intravenous contrast. Radiation dose: Total exam DLP = 937.16 mGy-cm. This CT exam was performed using one or more of the following dose reduction techniques: Automated exposure control, adjustment of the mA and/or kV according to patient size, and/or use of iterative reconstruction technique. FINDINGS: HEMORRHAGE: No intracranial hemorrhage. BRAIN: No mass effect or edema. Mild chronic microvascular changes and mild atrophy VENTRICLES: Unremarkable. No hydrocephalus. CALVARIUM: Unremarkable. PARANASAL SINUSES: Unremarkable as visualized. No significant inflammatory changes. MASTOID AIR CELLS: Unremarkable as visualized. No inflammatory changes. OTHER FINDINGS: None. IMPRESSION: No acute intracranial findings
--- NOTE | 2018-09-13 12:36 | RAD ---
Date of service: 09/13/2018 PROCEDURE: Radiographs of the Lumbar Spine. HISTORY: back pain COMPARISON: No prior. FINDINGS: BONES: Normal alignment. No listhesis. No fracture. Mild facet joint degenerative arthrosis inferior lumbar spine. DISC SPACES: Unremarkable. OTHER FINDINGS: Surgical clips in the abdomen. IMPRESSION: No fracture or spondylolisthesis appreciable. Limited inferior lumbar facet joint arthrosis..
[2018-09-13 13:15] VITALS: BP 130/85; PULSE 65
== END 2018-09-13 13:16 | disposition home or self-care (01) ==
LOC: ED 10:52
DX: M54.5 Low back pain (principal); G89.29 Other chronic pain; I10 Essential (primary) hypertension; F17.210 Nicotine dependence, cigarettes, uncomplicated

== ENCOUNTER 2018-11-14 04:06 | Inpatient (IN) | payer BC, MEDICAID ==
[2018-11-14 04:08] VITALS: BMI 30.2
[2018-11-14] MEDS ORDERED: Sodium Chloride 0.9% 1,000 ML IV STA ×2 (04:34→06:08)
--- NOTE | 2018-11-14 04:44 | ED PDOC ---
Arrival/HPI - General Historian: Patient - History of Present Illness Narrative History of Present Illness (Text): 11/14/18 04:41 Patient is a 53-year-old female, whose past medical history includes hypertension, IDDM, COPD, asthma, colon/pancreatic cancer s/p Whipple procedure, arthritis, sciatica, chronic neck/back pain, GERD, and substance abuse, presents to the ED for abdominal pain and vomiting x3 that began Wednesday. Patient state she lost her appetite, and has not been able to eat since Wednesday. Patient localizes the abdominal pain to left lower quadrant and radiating "all over" and to her back. Patient states she is unable to describe the quality of the pain, but quantifies it as 10/10 and constant. Patient states that she vomited "bile" (which she describes as yellow/greenish liquid) x3 episodes; most recent episode about an hour prior to arrival. Patient reports associated non-bloody diarrhea, and shortness of breath, but otherwise denies chest pain, numbness/tingling in lower extremities, diaphoresis, fever, chills, and/or headache. Time/Duration: < week Severity Level: 10 <Marleni Mathis - Last Filed: 11/14/18 06:07> Past Medical History - Provider Review Nursing Documentation Reviewed: Yes - Past History Past History: Non-Contributing - Infectious Disease Hx of Infectious Diseases: None - Tetanus Immunization Tetanus Immunization: Unknown - Cardiac Hx Cardiac Disorders: Yes Hx Hypertension: Yes Hx Pacemaker: No - Pulmonary Hx Respiratory Disorders: Yes Hx Asthma: Yes Hx Bronchitis: Yes Hx Chronic Obstructive Pulmonary Disease (COPD): Yes - Neurological Hx Neurological Disorder: Yes Hx Dizziness: Yes (NEAR SYNCOPE) - HEENT Hx HEENT Disorder: No - Renal Hx Renal Disorder: No - Endocrine/Metabolic Hx Diabetes Mellitus Type 1: Yes Hx Diabetes Mellitus Type 2: Yes - Hematological/Oncological Hx Cancer: No - Integumentary Hx Dermatological Disorder: No - Musculoskeletal/Rheumatological Hx Musculoskeletal Disorders: Yes (CHRONIC NECK AND PBACK PAIN) Hx Arthritis: Yes Hx Back Pain: Yes Hx Falls: No Other/Comment: uses cane - Gastrointestinal Hx Gastrointestinal Disorders: Yes (PANCREATIC CA,COLON CA WITH H/O WHIPPLE PROCEDURE) Hx Gastroesophageal Reflux: Yes Other/Comment: CONSTIPATION,GASTRITIS,GASTROPARESIS. - Genitourinary/Gynecological Hx Genitourinary Disorders: Yes Hx Urinary Tract Infection: Yes Other/Comment: Tubal ligation - Psychiatric Hx Psychophysiologic Disorder: No Hx Substance Use: Yes (CHRONIC OPIATE USE .H/O OF TREATMENT) Other/Comment: Hx substance abuse treatment - Surgical History Hx Cholecystectomy: Yes Hx Mastectomy: No - Anesthesia Hx Anesthesia: Yes Hx Anesthesia Reactions: No Hx Malignant Hyperthermia: No - Suicidal Assessment Feels Threatened In Home Enviroment: No <Marleni Mathis - Last Filed: 11/14/18 06:07> Family/Social History - Physician Review Nursing Documentation Reviewed: Yes Family/Social History: Unknown Family HX Smoking Status: Current Some Days Smoker Hx Alcohol Use: No (denies) Hx Substance Use: Yes (CHRONIC OPIATE USE .H/O OF TREATMENT) Hx Substance Use Treatment: Yes <Marleni Mathis - Last Filed: 11/14/18 06:07> Allergies/Home Meds <Sidney Verdin - Last Filed: 11/14/18 05:46> <Marleni Mathis - Last Filed: 11/14/18 06:07> Allergies/Adverse Reactions: Allergies acetaminophen [From Tylenol-Codeine] Allergy (Verified 11/14/18 04:09) RASH codeine Allergy (Verified 11/14/18 04:09) VOMITING iodine Allergy (Verified 11/14/18 04:09) RASH Home Medications: Home Meds Medication Instructions Recorded Confirmed Gabapentin [Neurontin] 100 mg PO BID 12/12/17 08/16/18 Insulin Glargine, Recombina 22 unit SQ BID 03/10/18 08/16/18 [Lantus] Insulin Human Regular-MED [HumuLIN 5 units SC TID 03/10/18 08/16/18 R MED] Oxycodone HCl/Acetaminophen 1 each PO PRN PRN 06/22/18 08/16/18 [Percocet 10-325 mg Tablet] Review of Systems - Review of Systems Constitutional: Normal Eyes: Normal ENT: Normal Respiratory: SOB Cardiovascular: Normal Gastrointestinal: Abdominal Pain, Diarrhea, Vomiting. absent: Hematochezia Genitourinary Female: Normal Musculoskeletal: Normal Skin: Normal Neurological: Normal Endocrine: Normal Hemo/Lymphatic: Normal Psychiatric: Normal <Marleni Mathis - Last Filed: 11/14/18 06:07> Physical Exam Vital Signs Temp Pulse Resp BP Pulse Ox 11/14/18 04:18 98.1 F 75 18 149/69 96 <KendellsantosSidney - Last Filed: 11/14/18 05:46> Vital Signs Temp Pulse Resp BP Pulse Ox 11/14/18 04:18 98.1 F 75 18 149/69 96 Temperature: Afebrile Blood Pressure: Hypertensive Pulse: Regular Respiratory Rate: Normal Appearance: Positive for: Well-Appearing, Non-Toxic, Unkept Pain Distress: Mild Mental Status: Positive for: Alert and Oriented X 3 - Systems Exam Head: Present: Atraumatic, Normocephalic Pupils: Present: PERRL Extroacular Muscles: Present: EOMI Conjunctiva: Present: Normal Mouth: Present: Moist Mucous Membranes Neck: Present: Normal Range of Motion Respiratory/Chest: Present: Clear to Auscultation, Good Air Exchange. No: Respiratory Distress, Accessory Muscle Use Cardiovascular: Present: Regular Rate and Rhythm, Normal S1, S2. No: Murmurs Abdomen: Present: Tenderness, Normal Bowel Sounds. No: Distention, Peritoneal Signs, Rovsing's Sign Present Upper Extremity: Present: Normal Inspection. No: Cyanosis, Edema Lower Extremity: Present: Normal Inspection Neurological: Present: GCS=15, CN II-XII Intact, Speech Normal Skin: Present: Warm, Dry, Rashes, Normal Color Psychiatric: Present: Alert, Oriented x 3, Normal Insight, Normal Concentration <Marleni Mathis - Last Filed: 11/14/18 06:07> Medical Decision Making ED Course and Treatment: Patient Seen with Resident: In agreement with resident note which contains more details about the patient. Patient seen and evaluated with resident. Came up with plan and treatment together. Pt, whose past medical history includes hypertension, IDDM, COPD, asthma, colon/pancreatic cancer s/p Whipple procedure, arthritis, sciatica, chronic neck/back pain, GERD, and substance abuse, presents to the ED for abdominal pain and vomiting. 11/14/18 05:46 CT Abdomen and Pelvis: Bilateral basilar atelectatic pulmonary changes. 3.2 cm benign right adrenal mass. Probably adenoma. 1.8 cm left adrenal nodule, probably benign adenoma. Mild diffuse thickening of the proximal small bowel loops. Mild apparent thickening of the rectosigmoid colon. Pneumobilia is noted. Normal unenhanced liver. Surgically absent gallbladder and nondilated extrahepatic biliary system. Normal unenhanced spleen. Normal pancreas. Normal size of the right kidney. There is no right renal mass. There are no right renal calculi. There is no right hydronephrosis. Normal visualized right ureter. Normal size of the left kidney. There is no left renal mass. There are no left renal calculi. There is no left hydronephrosis. Normal visualized left ureter. The appendix is visualized and appears normal. There is no demonstrated peritoneal fluid Normal abdominal aorta. Normal inferior vena cava. Normal retroperitoneum. Normal urinary bladder. There is no pelvic mass lesion or lymphadenopathy. There is no pelvic fluid. Normal abdominal wall. Mild diffuse spondylosis. IMPRESSION: Mild diffuse thickening of the proximal small bowel loops. Underdistention, spasm versus mild enteritis. Mild apparent thickening of the rectosigmoid junction. Underdistention, spasm versus mild inflammatory pathology. Electronically signed on Nov 14, 2018 5:44:48 AM EST by: Phong Flores M.D., Certified by ABR, MSK, Neuroradiology - Lab Interpretations Lab Results: PT 10.7 SECONDS (9.4-12.5) 11/14/18 04:25 INR 0.93 11/14/18 04:25 APTT 25.4 Seconds (25.1-36.5) 11/14/18 04:25 Troponin I < 0.01 ng/mL 11/14/18 04:25 Total Bilirubin 0.5 mg/dL (0.2-1.3) 11/14/18 04:25 AST 22 U/L (14-36) 11/14/18 04:25 ALT 34 U/L (7-56) 11/14/18 04:25 Alkaline Phosphatase 128 U/L (38-126) H D 11/14/18 04:25 Total Protein 8.3 g/dL (5.8-8.3) 11/14/18 04:25 Albumin 4.7 g/dL (3.0-4.8) 11/14/18 04:25 Globulin 3.6 gm/dL 11/14/18 04:25 Albumin/Globulin Ratio 1.3 (1.1-1.8) 11/14/18 04:25 Amylase 67 U/L (35-125) 11/14/18 04:25 Lipase 44 U/L (23-300) 11/14/18 04:25 - RAD Interpretation Radiology Orders: 11/14/18 04:58 ABD & PELVIS W/O PO OR IV CONT [CT] Stat - Medication Orders Current Medication Orders: Sodium Chloride (Sodium Chloride 0.9%) 1,000 mls @ 999 mls/hr IV .Q1H1M STA Stop: 11/14/18 05:34 Last Admin: 11/14/18 04:35 Dose: 999 mls/hr eMAR Start Stop Document 11/14/18 04:35 AD (Rec: 11/14/18 04:45 AD [id number]) Intravenous Solution Start Date 11/14/18 Start Time 04:35 Discontinued Medications Diphenhydramine HCl (Benadryl) 25 mg IVP STAT STA Stop: 11/14/18 04:54 Last Admin: 11/14/18 05:11 Dose: 25 mg IVP Administration Document 11/14/18 05:11 AD (Rec: 11/14/18 05:11 AD [id number]) Charges for Administration # of IVP Administrations 1 Morphine Sulfate (Morphine) 2 mg IVP STAT STA Stop: 11/14/18 04:50 Last Admin: 11/14/18 05:12 Dose: 2 mg MAR Pain Assessment Document 11/14/18 05:12 AD (Rec: 11/14/18 05:13 AD [id number]) Pain Reassessment Is this a pain reassessment? No Presence of Pain Presence of Pain Yes Pain Scale Used Protocol: PSCALES Pain Scale Used Numeric Location Pain Location Body Site Abdomen Description Description Constant IVP Administration Document 11/14/18 05:12 AD (Rec: 11/14/18 05:13 AD [id number]) Charges for Administration # of IVP Administrations 1 Ondansetron HCl (Zofran Inj) 4 mg IVP STAT STA Stop: 11/14/18 04:36 Last Admin: 11/14/18 04:45 Dose: 4 mg IVP Administration Document 11/14/18 04:45 AD (Rec: 11/14/18 04:45 AD [id number]) Charges for Administration # of IVP Administrations 1 Pantoprazole Sodium (Protonix Inj) 40 mg IVP STAT STA Stop: 11/14/18 04:36 Last Admin: 11/14/18 04:46 Dose: 40 mg IVP Administration Document 11/14/18 04:46 AD (Rec: 11/14/18 04:46 AD [id number]) Charges for Administration # of IVP Administrations 1 <KendellsantosSidney - Last Filed: 11/14/18 05:46> ED Course and Treatment: Patient is a 54 year old female with PMH of Hypertension, IDDM, COPD, asthma, colon/pancreatic cancer s/p Whipple procedure, arthritis, sciatica, chronic neck/back pain, GERD, and substance abuse, presents to the ED for abdominal pain and vomiting. 11/14/18 05:42 Assessment / Plan Abdominal pain; ACS rule-out - Troponins negative x1 - CMP - CBC - Lipase - Amylase - PT/PTT - CT abd/pelvis without IV/PO contrast (due to allergy); pending official report - morphine 2mg IV for pain - Omeprazole 40mg IV - Zofran 4mg IVP - Medication Orders Current Medication Orders: Sodium Chloride (Sodium Chloride 0.9%) 1,000 mls @ 999 mls/hr IV .Q1H1M STA Stop: 11/14/18 05:34 Discontinued Medications Ondansetron HCl (Zofran Inj) 4 mg IVP STAT STA Stop: 11/14/18 04:36 Pantoprazole Sodium (Protonix Inj) 40 mg IVP STAT STA Stop: 11/14/18 04:36 <Marleni Mathis - Last Filed: 11/14/18 06:07> Disposition/Present on Arrival <Sidney Verdin - Last Filed: 11/14/18 05:46> - Present on Arrival Any Indicators Present on Arrival: Yes History of DVT/PE: No History of Uncontrolled Diabetes: Yes Urinary Catheter: No History of Decub. Ulcer: No History Surgical Site Infection Following: None - Disposition Have Diagnosis and Disposition been Completed?: Yes Disposition Time: 06:06 Patient Plan: Admission <Marleni Mathis - Last Filed: 11/14/18 06:07> - Disposition Diagnosis: Abdominal pain Disposition: HOSPITALIZED Condition: GUARDED Referrals: Mayur Mcclendon DO [Staff Provider] - Follow up with primary
[2018-11-14 04:46] LABS: BASO # 0.02 K/mm3 (0.0-2.0); BASO % 0.4 % (0.0-3.0); EOS # 0.1 (0.0-0.7); EOS % 1.3 % (1.5-5.0); GRAN # 2.83 (1.4-6.5); GRAN % 59.8 % (50.0-68.0); LYMPH # 1.6 (1.2-3.4); MEAN CELL VOLUME 76.8 fl (80.0-105.0); MEAN CORPUSCULAR HEMOGLOBIN 24.4 pg (25.0-35.0); MEAN CORPUSCULAR HGB CONC 31.8 g/dl (31.0-37.0); MEAN PLATELET VOLUME 8.6 fl (7.0-11.0); MONO # 0.3 (0.1-0.6); MONO % 5.5 % (1.0-6.0); RBC 5.12 10^6/uL (3.5-6.1); RED CELL DISTRIBUTION WIDTH 16.5 % (11.5-14.5); WHITE BLOOD COUNT 4.7 10^3/uL (4.5-11.0)
[2018-11-14] MEDS ORDERED: Morphine 2 mg/ml ISec IVP STA (04:49)
[2018-11-14] MEDS ORDERED: DiphenhydrAMINE 50 mg/ml Inj IVP STA (04:53)
[2018-11-14 04:58] LABS: HEMOGLOBIN 12.5 g/dL (12.0-16.0)
[2018-11-14 05:01] LABS: ALB/GLOB RATIO 1.3 (1.1-1.8); ALBUMIN 4.7 g/dL (3.0-4.8); ALT/SGPT 34 U/L (7-56); AMYLASE 67 U/L (35-125); AST/SGOT 22 U/L (14-36); BLOOD UREA NITROGEN 18 mg/dL (7-21); CALCIUM 10.1 mg/dL (8.4-10.5); GFR NON-AFRICAN AMERICAN > 60; LIPASE 44 U/L (23-300)
[2018-11-14 05:04] LABS: INR 0.93; PARTIAL THROMBOPLASTIN TIME 25.4 Seconds (25.1-36.5); PROTHROMBIN TIME 10.7 SECONDS (9.4-12.5)
[2018-11-14 05:12] LABS: TROPONIN I < 0.01 ng/mL
[2018-11-14] MEDS ORDERED: Morphine 2 mg/ml ISec IVP PRN (06:11)
[2018-11-14] MEDS ORDERED: Insulin Regular 1 UNITS/0.01 ML ML ONE (07:30)
[2018-11-14] MEDS ORDERED: Insulin Reg-LOW-Coverage SC SCH (07:30)
[2018-11-14] MEDS: Sodium Chloride 0.45% 1,000 ML IV SCH (09:45)
--- NOTE | 2018-11-14 09:52 | CT ---
Date of service: 11/14/2018 PROCEDURE: CT Abdomen and Pelvis without intravenous contrast HISTORY: abdominal pain COMPARISON: 10/21/2017 TECHNIQUE: Technique. Contrast dose: Radiation dose: Total exam DLP = 543.17 mGy-cm. This CT exam was performed using one or more of the following dose reduction techniques: Automated exposure control, adjustment of the mA and/or kV according to patient size, and/or use of iterative reconstruction technique. FINDINGS: LOWER THORAX: Unremarkable. LIVER: Unremarkable. No gross lesion or ductal dilatation. GALLBLADDER AND BILE DUCTS: Gallbladder removed. Pneumobilia PANCREAS: History of previous Whipple procedure. Multiple surgical clips are seen SPLEEN: Unremarkable. ADRENALS: 3.2 cm right adrenal mass and 1.8 cm left adrenal mass unchanged. Probable adenomas. KIDNEYS AND URETERS: Unremarkable. No hydronephrosis. No solid mass. VASCULATURE: Unremarkable. No aortic aneurysm. No aortic atherosclerotic calcification or mural plaque present. BOWEL: Unremarkable. No obstruction. No gross mural thickening. APPENDIX: Unremarkable. Normal appendix. PERITONEUM: Unremarkable. No free fluid. No free air. LYMPH NODES: Unremarkable. No enlarged lymph nodes. BLADDER: Unremarkable. REPRODUCTIVE: Unremarkable. BONES: No acute fracture. OTHER FINDINGS: The report concurs with the preliminary [facility] report IMPRESSION: No acute intra-abdominal findings
[2018-11-14] MEDS: Morphine 2 mg/ml ISec IVP PRN ×4 (09:59→22:31)
--- NOTE | 2018-11-14 10:34 | CP.PCM.CON ---
<Bennett Velasquez - Last Filed: 11/14/18 13:54> History of Present Illness - History of Present Illness History of Present Illness: PGY-4 GI Fellow Consult Note Pt is a 53 yo BF with extensive surgical history s/p subtotal colectomy for Colon CA, whipple for pancreatic CA, chronic opiate use, DM, COPD, HTN presenting with complain of abd pain, N/V and diarrhea. She stated for the last several days she has had severe, 10/10, LLQ pain that radiated across her abdomen. She reports some relief when she is sleeping; denied nocturnal symptoms. She reports associated NB/NB emesis, few episodes as well as 4-6 loose, watery brown bowel movements. She reports daily or every other day forme d BMs at baseline. She reports decreased appetite as well as recent URI for which she had at least 2 different antibiotic courses for in the last several weeks. She denied any recent travel, sick contacts, change in diet, raw food consumption, melena, hematochezia, dysphagia nor weight loss. Patient does not follow up with GI as outpatient regularly. She says she has not followed up with [facility] (Dr. Contreras) as she previously stated that she would. Last EGD was 09/10 that showed esophageal web and bile gastritis. Unknown last CSPY. 12 point ROS negative other than stated above MHx: See above SurgHx: As above and cholecystectomy Meds: Reviewed in chart FamHx: Thinks she has a brother with colon polyps SocHx - 1/2 ppd smoker. Denies alcohol. All: APAP, Codeine, iodine Past Patient History - Infectious Disease Hx of Infectious Diseases: None - Tetanus Immunizations Tetanus Immunization: Unknown - Past Social History Smoking Status: Current Some Days Smoker - CARDIAC Hx Cardiac Disorders: Yes Hx Hypertension: Yes Hx Pacemaker: No - PULMONARY Hx Respiratory Disorders: Yes Hx Asthma: Yes Hx Bronchitis: Yes Hx Chronic Obstructive Pulmonary Disease (COPD): Yes - NEUROLOGICAL Hx Neurological Disorder: Yes Hx Dizziness: Yes (NEAR SYNCOPE) - HEENT Hx HEENT Problems: No - RENAL Hx Chronic Kidney Disease: No - ENDOCRINE/METABOLIC Hx Diabetes Mellitus Type 1: Yes Hx Diabetes Mellitus Type 2: Yes - HEMATOLOGICAL/ONCOLOGICAL Hx Cancer: No - INTEGUMENTARY Hx Dermatological Problems: No - MUSCULOSKELETAL/RHEUMATOLOGICAL Hx Musculoskeletal Disorders: Yes (CHRONIC NECK AND PBACK PAIN) Hx Arthritis: Yes Hx Back Pain: Yes Hx Falls: No Other/Comment: uses cane - GASTROINTESTINAL Hx Gastrointestinal Disorders: Yes (PANCREATIC CA,COLON CA WITH H/O WHIPPLE PROCEDURE) Hx Gastroesophageal Reflux: Yes Other/Comment: CONSTIPATION,GASTRITIS,GASTROPARESIS. - GENITOURINARY/GYNECOLOGICAL Hx Genitourinary Disorders: Yes Hx Urinary Tract Infection: Yes Other/Comment: Tubal ligation - PSYCHIATRIC Hx Psychophysiologic Disorder: No Hx Substance Use: Yes (CHRONIC OPIATE USE .H/O OF TREATMENT) Other/Comment: Hx substance abuse treatment - SURGICAL HISTORY Hx Cholecystectomy: Yes Hx Mastectomy: No - ANESTHESIA Hx Anesthesia: Yes Hx Anesthesia Reactions: No Hx Malignant Hyperthermia: No Meds Allergies/Adverse Reactions: Allergies Allergy/AdvReac Type Severity Reaction Status Date / Time iodine Allergy Mild RASH Verified 11/14/18 12:46 codeine Allergy VOMITING Verified 11/14/18 04:09 - Medications Medications: Current Medications Amlodipine Besylate (Norvasc) 5 mg PO DAILY [facility] Last Admin: 11/14/18 09:45 Dose: 5 mg Gabapentin (Neurontin) 100 mg PO BID [facility]; Protocol Last Admin: 11/14/18 09:44 Dose: 100 mg Sodium Chloride (Sodium Chloride 0.45%) 1,000 mls @ 60 mls/hr IV .[id number] [facility] Last Admin: 11/14/18 09:45 Dose: 60 mls/hr Pantoprazole Sodium (Protonix 40mg Ivpb) 40 mg in 100 mls @ 200 mls/hr IVPB 0600 [facility] Insulin Human Regular (Humulin R High) 0 units SC ACHS [facility]; Protocol Morphine Sulfate (Morphine) 2 mg IVP Q4H PRN PRN Reason: Pain, moderate (4-7) Last Admin: 11/14/18 09:59 Dose: 2 mg Physical Exam - Constitutional Appears: Well, No Acute Distress, Chronically Ill - Head Exam Head Exam: ATRAUMATIC, NORMAL INSPECTION - Eye Exam Eye Exam: EOMI. absent: Scleral icterus - ENT Exam ENT Exam: Mucous Membranes Moist. absent: Mucous Membranes Dry - Respiratory Exam Respiratory Exam: Clear to Auscultation Bilateral, NORMAL BREATHING PATTERN. absent: Accessory Muscle Use, Respiratory Distress - Cardiovascular Exam Cardiovascular Exam: REGULAR RHYTHM, RRR - GI/Abdominal Exam GI & Abdominal Exam: Normal Bowel Sounds, Soft. absent: Bruit, Diminished Bowel Sounds, Distended, Firm, Guarding, Hernia, Mass, Organomegaly, Pulsatile Mass, Rebound, Rigid, Tenderness - Rectal Exam Rectal Exam: Deferred - Extremities Exam Extremities exam: Positive for: normal inspection. Negative for: pedal edema - Neurological Exam Neurological exam: Alert, CN II-XII Intact - Psychiatric Exam Psychiatric exam: Normal Affect, Normal Mood - Skin Skin Exam: Dry, Warm Results - Vital Signs Recent Vital Signs: Last Vital Signs Temp 98.1 F 11/14/18 04:18 Pulse 93 H 11/14/18 09:45 Resp 16 11/14/18 07:24 BP 130/72 11/14/18 09:45 Pulse Ox 96 11/14/18 07:24 - Labs Result Diagrams: 11/14/18 04:25 11/14/18 04:25 Labs: Laboratory Results - last 24 hr 11/14/18 11/14/18 11/14/18 04:25 04:25 04:25 WBC 4.7 RBC 5.12 Hgb 12.5 D Hct 39.3 MCV 76.8 L MCH 24.4 L MCHC 31.8 RDW 16.5 H Plt Count 320 MPV 8.6 Gran % 59.8 Lymph % (Auto) 33.0 [place] % (Auto) 5.5 Eos % (Auto) 1.3 L Baso % (Auto) 0.4 Gran # 2.83 Lymph # (Auto) 1.6 [place] # (Auto) 0.3 Eos # (Auto) 0.1 Baso # (Auto) 0.02 PT 10.7 INR 0.93 APTT 25.4 Sodium 136 Potassium 4.2 Chloride 101 Carbon Dioxide 26 Anion Gap 13 BUN 18 Creatinine 0.7 Est GFR ( Amer) > 60 Est GFR (Non-Af Amer) > 60 Random Glucose 279 H Calcium 10.1 Total Bilirubin 0.5 AST 22 ALT 34 Alkaline Phosphatase 128 H D Troponin I < 0.01 Total Protein 8.3 Albumin 4.7 Globulin 3.6 Albumin/Globulin Ratio 1.3 Amylase 67 Lipase 44 Assessment & Plan - Assessment and Plan (Free Text) Assessment: 53 yo BF with h/o Colon CA s/p subtotal colectomy, Panc CA s/p Whipple, DM presenting with abd pain, N/V and diarrhea. # Abd pain, N/V and diarrhea: Unclear etiology. CT Abd+Pelvis w/o contrast w/o acute findings. Suspect related to viral gastroenteritis given recent URI symptoms. Perhaps could be Cdiff as well given recent abx use. Gastroparesis component contributing since BS > 200 on admission. Plan: - Blood glucose control - Check Cdiff - Full Liq Diet, ADAT - Supportive care - Counseled pt on importance of close outpatient follow-up including repeat CSPY Pt discussed with Dr. Rincon; please see attestation for further recs/changes. <Martinez Rincon - Last Filed: 11/14/18 14:23> Meds - Medications Medications: Current Medications Acetaminophen (Tylenol 325mg Tab) 650 mg PO Q6H PRN PRN Reason: Pain, moderate (4-7) Last Admin: 11/14/18 13:03 Dose: 650 mg Amlodipine Besylate (Norvasc) 5 mg PO DAILY [facility] Last Admin: 11/14/18 09:45 Dose: 5 mg Gabapentin (Neurontin) 100 mg PO BID [facility]; Protocol Last Admin: 11/14/18 09:44 Dose: 100 mg Sodium Chloride (Sodium Chloride 0.45%) 1,000 mls @ 60 mls/hr IV .[id number] Last Admin: 11/14/18 09:45 Dose: 60 mls/hr Pantoprazole Sodium (Protonix 40mg Ivpb) 40 mg in 100 mls @ 200 mls/hr IVPB 0600 [facility] Insulin Human Regular (Humulin R High) 0 units SC ACHS [facility]; Protocol Last Admin: 11/14/18 12:42 Dose: Not Given Morphine Sulfate (Morphine) 2 mg IVP Q4H PRN PRN Reason: Pain, moderate (4-7) Last Admin: 11/14/18 09:59 Dose: 2 mg Results - Vital Signs Recent Vital Signs: Last Vital Signs Temp 98.1 F 11/14/18 04:18 Pulse 93 H 11/14/18 09:45 Resp 18 11/14/18 10:45 BP 130/72 11/14/18 09:45 Pulse Ox 96 11/14/18 07:24 - Labs Result Diagrams: 11/14/18 04:25 11/14/18 04:25 Labs: Laboratory Results - last 24 hr 11/14/18 11/14/1811/14/19 04:25 04:25 04:25 WBC 4.7 RBC 5.12 Hgb 12.5 D Hct 39.3 MCV 76.8 L MCH 24.4 L MCHC 31.8 RDW 16.5 H Plt Count 320 MPV 8.6 Gran % 59.8 Lymph % (Auto) 33.0 [place] % (Auto) 5.5 Eos % (Auto) 1.3 L Baso % (Auto) 0.4 Gran # 2.83 Lymph # (Auto) 1.6 [place] # (Auto) 0.3 Eos # (Auto) 0.1 Baso # (Auto) 0.02 PT 10.7 INR 0.93 APTT 25.4 Sodium 136 Potassium 4.2 Chloride 101 Carbon Dioxide 26 Anion Gap 13 BUN 18 Creatinine 0.7 Est GFR ( Amer) > 60 Est GFR (Non-Af Amer) > 60 POC Glucose (mg/dL) Random Glucose 279 H Calcium 10.1 Total Bilirubin 0.5 AST 22 ALT 34 Alkaline Phosphatase 128 H D Troponin I < 0.01 Total Protein 8.3 Albumin 4.7 Globulin 3.6 Albumin/Globulin Ratio 1.3 Amylase 67 Lipase 44 11/14/18 11:35 WBC RBC Hgb Hct MCV MCH MCHC RDW Plt Count MPV Gran % Lymph % (Auto) [place] % (Auto) Eos % (Auto) Baso % (Auto) Gran # Lymph # (Auto) [place] # (Auto) Eos # (Auto) Baso # (Auto) PT INR APTT Sodium Potassium Chloride Carbon Dioxide Anion Gap BUN Creatinine Est GFR ( Amer) Est GFR (Non-Af Amer) POC Glucose (mg/dL) 203 H Random Glucose Calcium Total Bilirubin AST ALT Alkaline Phosphatase Troponin I Total Protein Albumin Globulin Albumin/Globulin Ratio Amylase Lipase Attending/Attestation - Attestation I have personally seen and examined this patient.: Yes I have fully participated in the care of the patient.: Yes I have reviewed all pertinent clinical information: Yes Notes (Text): 11/14/18 14:18 I have seen and examined patient with GI fellow. Agree with above documentation with the following additions. In brief, this is a 53 year old female with history of pancreatic CA s/p whipple, colon cancer s/p subtotal colectomy, DM, COPD, HTN who presents to hospital with complaint of progressive abdominal pain, nausea, vomiting, diarrhea which began one week ago. She reports sharp epigastric pain, 10/10 intensity that is worse after meal consumption. She c laims to have good control of her blood glucose recently with FS not exceeding 250. She does admit to recent antibiotic use for URI prior to symptom onset. She had two loose bowel movements today but otherwise denies vomiting, fever/chills, rectal bleeding. She had an EGD in August 2017 which showed gastritis, esophageal web. [place] [facility] [place]. History of colon and pancreatic cancer DM / HTN COPD Abdominal pain, vomiting, diarrhea CT imaging reviewed by me showing no gross GI abnormalities - Full liquid diet, advance slowly as tolerated - Continue with IVF hydration, supportive care - Anti-emetic therapy PRN - Obtain stool studies, c-difficile/culture - Maintain strict glycemic control - Will continue to monitor patient clinical course
[2018-11-14] MEDS: Insulin Reg-HIGH-Coverage SC SCH ×3 (12:42→22:00)
--- NOTE | 2018-11-14 18:42 | CARD ---
APPROVED REPORT Date of service: 11/14/2018 EKG Measurement Heart [id number] <Conclusion> Normal sinus rhythm Possible Left atrial enlargement Borderline ECG
--- NOTE | 2018-11-14 18:57 | HP ---
DATE OF EXAM: 11/14/2018 HISTORY OF PRESENT ILLNESS: I have known Marizol for a while now, she comes in with abdomina pain, vomiting for three days, loss of appetite, all over her abdomen 10/10 pain. She vomited bile three times, nonbloody. She is a 53-year-old female with past medical history of hypertension, diabetes, COPD, asthma, colon pancreatic cancer, status post Whipple, arthritis, sciatica, chronic neck and back pain, GERD, substance abuse history and now with abdominal pain, nausea and vomiting for three days, asthma bronchitis, COPD, near syncope history, chronic pain, sees a pain management doctor, pancreatic cancer, colon cancer, status post Whipple's procedure, reflux, constipation, gastritis, gastroparesis. She has tubal ligation, urinary tract infection, chronic opioid use and cholecystectomy. She still smokes. No alcohol, chronic opioid use, and seeing a pain management doctor. ALLERGIES: SHE IS ALLERGIC TO ACETAMINOPHEN, CODEINE, AND IODINE. MEDICATIONS: She is on Neurontin, insulin, Lantus and oxycodone. REVIEW OF SYSTEMS: No vision or hearing changes. No shortness of breath. No chest pain. She has abdominal pain. She has diarrhea and vomiting. No blood. No problems urinating. No back pain. No leg pain. Little upset, not anxious. PHYSICAL EXAMINATION: GENERA: Well-appearing, little bit toxic and comfortable in bed. Alert and oriented x3. VITAL SIGNS: 98.1 temp, 75 pulse, 18 respiratory rate, 149/69 blood pressure, and 96% O2 sat. HEENT: Head is atraumatic and normocephalic. Extraocular muscles are intact. Pupils are equal and reactive to light and accommodation. Throat is moist. NECK: Supple. HEART: Regular rate. Normal S1 and S2. LUNGS: Decreased breath sounds. Clear to auscultation bilaterally. No wheezes. No rhonchi. No rales. ABDOMEN: Soft. Decreased bowel sounds. No guarding or rebound, but is comfort everywhere. NEUROLOGIC: GCS is 15. Cranial nerves II through XII grossly intact. Speech is normal. SKIN: Warm and dry. Alert and oriented x3. LABORATORY DATA: She had a CAT scan of the abdomen and pelvis that is pending. She has a 4.7 white count, 12.5 hemoglobin, 39.3 hematocrit with 320 platelets. INR 0.93. Sodium 136, potassium 4.2, BUN 18, creatinine 0.7, GFR is greater than 60, sugar is 279, we will put her on coverage, calcium is 10.1, and total bili is 0.5. AST is 222, ALT is 34, and alk phos 128. Troponin I is less than 0.01, total protein is 8.3, albumin is 4.7, globulin 3.6, amylase is 57, and lipase is 44. ASSESSMENT AND PLAN: She will have a consult with Gastroenterology. I will put her on pain medications and insulin coverage and IV fluids and hopefully this will resolve, she has done this before. Marizol Parker who has got severe abdominal pain, hopefully just the gastroparesis not a small bowel obstruction. Mayur Mcclendon DO [email or web address]
[2018-11-14 23:05] VITALS: RESP 20
[2018-11-15] MEDS: Sodium Chloride 0.45% 1,000 ML IV SCH ×2 (02:33→22:40)
[2018-11-15] MEDS: Morphine 2 mg/ml ISec IVP PRN ×6 (02:34→22:40)
[2018-11-15] MEDS ORDERED: Pantoprazole 40mg/100mL NS 40 MG/100 ML BAG IVPB SCH (06:00)
[2018-11-15 07:52] LABS: HEMOGLOBIN 10.3 g/dL (12.0-16.0); MEAN CELL VOLUME 77.4 fl (80.0-105.0); MEAN PLATELET VOLUME 8.2 fl (7.0-11.0); RBC 4.29 10^6/uL (3.5-6.1); RED CELL DISTRIBUTION WIDTH 16.1 % (11.5-14.5); WHITE BLOOD COUNT 4.6 10^3/uL (4.5-11.0)
[2018-11-15 08:11] LABS: ALB/GLOB RATIO 1.3 (1.1-1.8); ALBUMIN 3.4 g/dL (3.0-4.8); ALT/SGPT 34 U/L (7-56); AST/SGOT 15 U/L (14-36); BLOOD UREA NITROGEN 14 mg/dL (7-21); CALCIUM 8.8 mg/dL (8.4-10.5); GFR NON-AFRICAN AMERICAN > 60
--- NOTE | 2018-11-15 10:05 | CT ---
Date of service: 11/15/2018 PROCEDURE: CT HEAD WITHOUT CONTRAST. HISTORY: h/a COMPARISON: Noncontrast head CT 09/13/2018. TECHNIQUE: Axial computed tomography images were obtained through the head/brain without intravenous contrast. Radiation dose: Total exam DLP = 877.98 mGy-cm. This CT exam was performed using one or more of the following dose reduction techniques: Automated exposure control, adjustment of the mA and/or kV according to patient size, and/or use of iterative reconstruction technique. FINDINGS: HEMORRHAGE: No intracranial hemorrhage. BRAIN: Normal garcia-white matter differentiation and density are appreciated throughout the cerebrum and cerebellum with the brainstem appearing unremarkable as well. There is no mass effect. There is no suspicious extra-axial fluid collection and the midline brain anatomy appears diffusely unremarkable. VENTRICLES: Unremarkable. No hydrocephalus. CALVARIUM: Unremarkable. PARANASAL SINUSES: Unremarkable as visualized. No significant inflammatory changes. MASTOID AIR CELLS: Unremarkable as visualized. No inflammatory changes. OTHER FINDINGS: None. IMPRESSION: Unremarkable unenhanced head CT. No significant interval change compared prior CT 09/13/2018.
[2018-11-15] MEDS: Insulin Reg-HIGH-Coverage SC SCH ×3 (10:22→17:07)
--- NOTE | 2018-11-15 10:30 | CP.PCM.PN ---
<Bennett Velasquez - Last Filed: 11/15/18 10:26> Subjective - Date & Time of Evaluation Date of Evaluation: 11/15/18 Time of Evaluation: 08:15 - Subjective Subjective: PGY-4 GI Fellow Prog Note Pt sitting up in bedside chair this AM. States she is not doing well since her is admitted to hospital. She states she does not feel like eating nor talking due to stress but abd pain improved. 5 point ROS negative other than stated above Objective - Vital Signs/Intake and Output Vital Signs (last 24 hours): Temp Pulse Resp BP Pulse Ox 97.9 F 63 20 129/70 98 11/15/18 07:00 11/15/18 07:00 11/15/18 07:00 11/15/18 07:00 11/15/18 07:00 Intake and Output: 11/15/18 11/15/18 06:59 18:59 Intake Total 2400 Balance 2400 - Medications Medications: Current Medications Acetaminophen (Tylenol 325mg Tab) 650 mg PO Q6H PRN PRN Reason: Pain, moderate (4-7) Last Admin: 11/14/18 13:03 Dose: 650 mg Amlodipine Besylate (Norvasc) 5 mg PO DAILY [facility] Last Admin: 11/14/18 09:45 Dose: 5 mg Gabapentin (Neurontin) 100 mg PO BID [facility]; Protocol Last Admin: 11/14/18 17:15 Dose: 100 mg Sodium Chloride (Sodium Chloride 0.45%) 1,000 mls @ 60 mls/hr IV .[id number] [facility] Last Admin: 11/15/18 02:33 Dose: 60 mls/hr Pantoprazole Sodium (Protonix 40mg Ivpb) 40 mg in 100 mls @ 200 mls/hr IVPB 0600 [facility] Last Admin: 11/15/18 06:30 Dose: 200 mls/hr Insulin Human Regular (Humulin R High) 0 units SC ACHS [facility]; Protocol Last Admin: 11/14/18 22:00 Dose: Not Given Morphine Sulfate (Morphine) 2 mg IVP Q4H PRN PRN Reason: Pain, moderate (4-7) Last Admin: 11/15/18 06:30 Dose: 2 mg Ondansetron HCl (Zofran Inj) 4 mg IVP Q6H PRN PRN Reason: Nausea/Vomiting Last Admin: 11/15/18 06:31 Dose: 4 mg - Labs Labs: 11/15/18 07:30 11/15/18 07:30 PT 10.7 SECONDS (9.4-12.5) 11/14/18 04:25 INR 0.93 11/14/18 04:25 APTT 25.4 Seconds (25.1-36.5) 11/14/18 04:25 - Constitutional Appears: No Acute Distress, Agitated, Chronically Ill - Head Exam Head Exam: ATRAUMATIC, NORMAL INSPECTION - Eye Exam Eye Exam: EOMI. absent: Scleral icterus - ENT Exam ENT Exam: Mucous Membranes Moist. absent: Mucous Membranes Dry - Respiratory Exam Respiratory Exam: NORMAL BREATHING PATTERN. absent: Accessory Muscle Use, Respiratory Distress - GI/Abdominal Exam GI & Abdominal Exam: Soft, Normal Bowel Sounds. absent: Bruit, Distended, Firm, Guarding, Rigid, Tenderness, Mass, Organomegaly, Pulsatile Mass Assessment and Plan - Assessment and Plan (Free Text) Assessment: 53 yo BF with h/o Colon CA s/p subtotal colectomy, Panc CA s/p Whipple, DM presenting with abd pain, N/V and diarrhea. # Abd pain, N/V and diarrhea: Unclear etiology. CT Abd+Pelvis w/o contrast w/o acute findings. Suspect related to viral gastroenteritis given recent URI symptoms. Perhaps could be Cdiff as well given recent abx use, or simply abx associated diarrhea. Gastroparesis component contributing since BS > 200 on admission. Plan: - Blood glucose control - Cdiff, pending - Advanced diet to diabetic with small freq meals - Supportive care - Counseled pt on importance of close outpatient follow-up including repeat CSPY Pt discussed with Dr. Rincon; please see attestation for further recs/changes. <Martinez Rincon - Last Filed: 11/15/18 11:41> Objective - Vital Signs/Intake and Output Vital Signs (last 24 hours): Temp Pulse Resp BP Pulse Ox 97.9 F 60 20 155/97 H 98 11/15/18 07:00 11/15/18 10:28 11/15/18 07:00 11/15/18 10:28 11/15/18 07:00 Intake and Output: 11/15/18 11/15/18 06:59 18:59 Intake Total 2400 Balance 2400 - Medications Medications: Current Medications Acetaminophen (Tylenol 325mg Tab) 650 mg PO Q6H PRN PRN Reason: Pain, moderate (4-7) Last Admin: 11/14/18 13:03 Dose: 650 mg Amlodipine Besylate (Norvasc) 5 mg PO DAILY [facility] Last Admin: 11/15/18 10:28 Dose: 5 mg Gabapentin (Neurontin) 100 mg PO BID [facility]; Protocol Last Admin: 11/15/18 10:28 Dose: 100 mg Sodium Chloride (Sodium Chloride 0.45%) 1,000 mls @ 60 mls/hr IV .[id number] [facility] Last Admin: 11/15/18 02:33 Dose: 60 mls/hr Pantoprazole Sodium (Protonix 40mg Ivpb) 40 mg in 100 mls @ 200 mls/hr IVPB 0600 [facility] Last Admin: 11/15/18 06:30 Dose: 200 mls/hr Insulin Human Regular (Humulin R High) 0 units SC ACHS [facility]; Protocol Last Admin: 11/15/18 10:22 Dose: Not Given Morphine Sulfate (Morphine) 2 mg IVP Q4H PRN PRN Reason: Pain, moderate (4-7) Last Admin: 11/15/18 10:33 Dose: 2 mg Ondansetron HCl (Zofran Inj) 4 mg IVP Q6H PRN PRN Reason: Nausea/Vomiting Last Admin: 11/15/18 06:31 Dose: 4 mg - Labs Labs: 11/15/18 07:30 11/15/18 07:30 PT 10.7 SECONDS (9.4-12.5) 11/14/18 04:25 INR 0.93 11/14/18 04:25 APTT 25.4 Seconds (25.1-36.5) 11/14/18 04:25 Attending/Attestation - Attestation I have fully participated in the care of the patient.: Yes I have reviewed all pertinent clinical information, including history, physical exam and plan: Yes Notes (Text): 11/15/18 11:40 History of pancreatic and colon cancer DM Diarrhea, abdominal pain - resolved - Advance diet as tolerated - Awaiting stool studies - Optimize blood glucose control - Continue with supportive care
--- NOTE | 2018-11-15 13:16 | PN ---
DATE: 11/15/2018 SUBJECTIVE: I saw her this morning in bed. She is very upset. She is having a very bad headache. She does not know why she is having a bad headache. I am going to do a CAT scan of the brain and get Neurology to see her. She is still nauseous, not feeling well. She has had consult with GI. Also had a consult with Neurology. MEDICATIONS: She is on IV fluids, insulin coverage, morphine for pain, Neurontin, Norvasc for blood pressure, pantoprazole for the abdominal pain, Tylenol and Zofran for nauseousness. PHYSICAL EXAMINATION: VITAL SIGNS: Temperature 97.9, pulse 63, blood pressure 129/70, respiratory rate 20, O2 sat on room air 98%. HEENT: Head atraumatic, normocephalic. Extraocular muscles are intact. Throat is moist. NECK: Supple. HEART: Regular rate. LUNGS: Decreased breath sounds, but clear. No congestion. No wheezes, rhonchi or rales. ABDOMEN: Soft. Mild discomfort. No guarding or rebound. There are decreased bowel sounds, but I hear them. EXTREMITIES: No edema. LABORATORY DATA: She has a 4.6 white count, 10.3 hemoglobin, 33.2 hematocrit with 219 platelets. Sodium 136, potassium 4.2, BUN is 14, creatinine 0.6. GFR is greater than 60. Sugar is 262, on coverage. Calcium 8.8, total bili is 0.2, AST is 50, ALT is 34, alk phos 89, total protein is 5.9. ASSESSMENT AND PLAN: We have a liquid diet started by GI. We will get a CAT scan of the head, IV fluids. There is Clostridium difficile toxin and a drug screen that are pending. She is still not feeling well, still nauseous. I do not know if she will eat the breakfast, but she will try. I want to see what is going on in her brain. I will continue with aggressive treatment and care. Mayur Mcclendon DO
--- NOTE | 2018-11-15 19:04 | CON ---
DATE: 11/15/2018 NEUROLOGY CONSULTATION CHIEF COMPLIANT: Headache. HISTORY OF PRESENT ILLNESS: This is a 53-year-old woman with past medical history of colon cancer, status post subtotal colectomy; pancreatic cancer, status post Whipple's surgery; type 2 diabetes mellitus who was admitted for abdominal pain, nausea, vomiting, and diarrhea for which GI is on board, who recommended that could be possibly underlying gastroparesis and viral gastroenteritis. She has been having diarrhea for the past few days and complains of intermittent diffuse pressure headache probably in nature with occasional photophobia and nausea. She is also completely stressed. Her CAT scan of the head showed no acute intracranial abnormalities. She has hyperglycemic accelerations on her labs. PAST MEDICAL HISTORY: As above. ALLERGIES: IODINE AND CODEINE. SOCIAL HISTORY: No illicit drug use, smoking, or EtOH abuse. REVIEW OF SYSTEMS: A 14-point review of systems is negative except as per HPI. FAMILY HISTORY: Noncontributory. LABORATORY DATA: Sodium is 136, potassium 4.2, chloride 107 carbon dioxide 26, BUN of 14, creatinine 0.7, and random glucose 262. PHYSICAL EXAMINATION: GENERAL: The patient is sitting up in bed, in no acute distress. VITAL SIGNS: Temperature 98.4, pulse rate 60, blood pressure 155/97, respiratory rate 18 and oxygen saturation 98% on room air. HEENT: Atraumatic and normocephalic. PERRLA. Extraocular muscles are intact. NECK: Supple. No JVD. No adenopathy noted. LUNGS: Clear to auscultation. No adventitious sounds. HEART: S1 and S2. Normal rate and rhythm. No murmurs, rubs, or gallops. ABDOMEN: Soft, nontender, and nondistended. Bowel sounds present. EXTREMITIES: No clubbing. No cyanosis. Peripheral pulses are 2+ bilaterally. NEUROLOGIC: The patient is alert and oriented to person, place, month and year. Speech is fluent without any errors. Cranial nerves II through XII are intact. Motor exam; moves all extremities equally. Toes are downgoing bilaterally. Sensory exam; light touch, pinprick, proprioception decreased up to calves bilaterally. Decreased vibration of the toes. DTRs are 2+ throughout. Coordination; [id number] is intact. No dysmetria noted. Gait is deferred for now. IMPRESSION: Headache is more of a migraine without aura with a tension component, superimposed underlying chronic medical condition. She has hyperglycemic accelerations, which can contribute to worsening headaches. RECOMMENDATIONS: We will recommend: 1. One stat dose of IV Toradol 30 mg. 2. Gabapentin, we will make it 400 mg p.o. at bedtime for neuropathic relief. 3. Continue to monitor electrolytes, keep her blood sugars between 140 to 180 hyperglycemic accelerations. Thank you for this consult. Silvio Rao MD
[2018-11-15 23:21] VITALS: TEMP 98.6
[2018-11-16 06:18] LABS: HEMOGLOBIN 9.6 g/dL (12.0-16.0); MEAN CELL VOLUME 77.2 fl (80.0-105.0); MEAN CORPUSCULAR HEMOGLOBIN 23.8 pg (25.0-35.0); MEAN CORPUSCULAR HGB CONC 30.9 g/dl (31.0-37.0); MEAN PLATELET VOLUME 8.8 fl (7.0-11.0); RBC 4.03 10^6/uL (3.5-6.1); RED CELL DISTRIBUTION WIDTH 16.2 % (11.5-14.5); WHITE BLOOD COUNT 4.3 10^3/uL (4.5-11.0)
[2018-11-16 07:04] LABS: ALB/GLOB RATIO 1.3 (1.1-1.8); ALBUMIN 3.4 g/dL (3.0-4.8); ALT/SGPT 27 U/L (7-56); AST/SGOT 17 U/L (14-36); BLOOD UREA NITROGEN 16 mg/dL (7-21); CALCIUM 9.2 mg/dL (8.4-10.5); GFR NON-AFRICAN AMERICAN > 60
[2018-11-16] MEDS: Insulin Reg-HIGH-Coverage SC SCH ×2 (08:06→12:10)
[2018-11-16] MEDS: Morphine 2 mg/ml ISec IVP PRN ×2 (08:09→12:18)
[2018-11-16 08:30] VITALS: BP 138/76; PULSE 55; O2SAT 99
--- NOTE | 2018-11-16 11:22 | CP.PCM.PN ---
<Bennett Velasquez - Last Filed: 11/16/18 13:04> Subjective - Date & Time of Evaluation Date of Evaluation: 11/16/18 Time of Evaluation: 08:45 - Subjective Subjective: PGY-4 GI Fellow Prog Note Pt sitting up in bed, talkin on phone and eating breakfast when seen this AM. States her abd pain is "so-so." She reports 3-4 BMs since admission, "maybe fewer." No stool collection for Cdiff testing. 5 point ROS negative other than stated above. Objective - Vital Signs/Intake and Output Vital Signs (last 24 hours): Temp Pulse Resp BP Pulse Ox 98.6 F 55 L 20 138/76 99 11/16/18 06:00 11/16/18 10:40 11/16/18 06:00 11/16/18 10:40 11/16/18 06:00 - Medications Medications: Current Medications Acetaminophen (Tylenol 325mg Tab) 650 mg PO Q6H PRN PRN Reason: Pain, moderate (4-7) Last Admin: 11/14/18 13:03 Dose: 650 mg Amlodipine Besylate (Norvasc) 5 mg PO DAILY [facility] Last Admin: 11/16/18 10:40 Dose: 5 mg Gabapentin (Neurontin) 400 mg PO HS [facility]; Protocol Last Admin: 11/15/18 22:39 Dose: 400 mg Sodium Chloride (Sodium Chloride 0.45%) 1,000 mls @ 60 mls/hr IV .[id number] [facility] Last Admin: 11/15/18 22:40 Dose: 60 mls/hr Insulin Detemir (Levemir) 14 unit SC [facility] Insulin Human Regular (Humulin R High) 0 units SC [facility]; Protocol Last Admin: 11/16/18 08:06 Dose: 7 units Morphine Sulfate (Morphine) 2 mg IVP Q4H PRN PRN Reason: Pain, moderate (4-7) Last Admin: 11/16/18 08:09 Dose: 2 mg Ondansetron HCl (Zofran Inj) 4 mg IVP Q6H PRN PRN Reason: Nausea/Vomiting Last Admin: 11/15/18 14:43 Dose: 4 mg Pantoprazole Sodium (Protonix Inj) 40 mg IVP 0600 [facility] - Labs Labs: 11/16/18 05:35 11/16/18 05:35 PT 10.7 SECONDS (9.4-12.5) 11/14/18 04:25 INR 0.93 11/14/18 04:25 APTT 25.4 Seconds (25.1-36.5) 11/14/18 04:25 - Constitutional Appears: No Acute Distress, Chronically Ill - Head Exam Head Exam: ATRAUMATIC, NORMAL INSPECTION - Eye Exam Eye Exam: EOMI. absent: Scleral icterus - ENT Exam ENT Exam: Mucous Membranes Moist. absent: Mucous Membranes Dry - Respiratory Exam Respiratory Exam: NORMAL BREATHING PATTERN. absent: Accessory Muscle Use, Respiratory Distress - GI/Abdominal Exam GI & Abdominal Exam: Soft, Normal Bowel Sounds. absent: Bruit, Distended, Firm, Guarding, Rigid, Tenderness, Mass, Organomegaly, Pulsatile Mass Assessment and Plan - Assessment and Plan (Free Text) Assessment: 53 yo BF with h/o Colon CA s/p subtotal colectomy, Panc CA s/p Whipple, DM presenting with abd pain, N/V and diarrhea. # Abd pain, N/V and diarrhea: Improved. CT Abd+Pelvis w/o contrast w/o acute findings. Suspect related to viral gastroenteritis given recent URI symptoms. Perhaps could be Cdiff as well given recent abx use, or simply abx associated diarrhea. Gastroparesis component contributing since BS > 200 on admission. Plan: - Blood glucose control - Cdiff, pending but low suspicion - Diet diabetic with small freq meals - Supportive care - Counseled pt on importance of close outpatient follow-up including repeat CSPY Pt seen and examined with Dr. Rincon; please see attestation for further recs/changes. <Martinez Rincon - Last Filed: 11/16/18 15:53> Objective - Vital Signs/Intake and Output Vital Signs (last 24 hours): Temp Pulse Resp BP Pulse Ox 98.6 F 55 L 20 138/76 99 11/16/18 06:00 11/16/18 10:40 11/16/18 06:00 11/16/18 10:40 11/16/18 06:00 - Labs Labs: 11/16/18 05:35 11/16/18 05:35 PT 10.7 SECONDS (9.4-12.5) 11/14/18 04:25 INR 0.93 11/14/18 04:25 APTT 25.4 Seconds (25.1-36.5) 11/14/18 04:25 Attending/Attestation - Attestation I have personally seen and examined this patient.: Yes I have fully participated in the care of the patient.: Yes I have reviewed all pertinent clinical information, including history, physical exam and plan: Yes Notes (Text): 11/16/18 15:51 I have seen and examined patient with GI fellow. She is seen ambulating in hallway talking on telephone, appears quite comfortable. She reports ongoing mild epigastric discomfort but denies nausea, vomiting, fever/chills. Tolerating PO diet without difficulty. History of colon and pancreatic cancer DM - non controlled Abdominal pain - gastroparesis - Advance diet as tolerated, small frequent meals - Anti-emetic therapy PRN - Strict glycemic control - From GI standpoint ok to discharge home with subsequent outpatient follow up, discussed with Dr. Mcclendon
--- NOTE | 2018-11-16 11:32 | PN ---
DATE: 11/16/2018 SUBJECTIVE: I saw her this morning. She was very nauseous, did not want to eat breakfast. She is uncomfortable. She is also having a very severe headache. She was seen by Neurology and GI, GI said to increase her diet. She is not really eating anything. She is on IV fluids, Benadryl, insulin coverage. I added Levemir, some morphine for pain, Neurontin, Norvasc, Protonix, Toradol, Tylenol and Zofran. Toradol and Neurontin were added by the neurologist. She is feeling bad with her stomach, she has had gastroparesis before. She tells me she is not moving her bowels well due to severe headache, can get out of bed. PHYSICAL EXAMINATION: VITAL SIGNS: She has 98.6 temperature, 55 pulse, 138/76 blood pressure, 20 respiratory rate, 99% O2 sat on room air. HEENT: Head is atraumatic, normocephalic. HEART: Regular rate. LUNGS: Decreased breath sounds but clear. ABDOMEN: Soft. Mild discomfort. No guarding, no rebound. EXTREMITIES: No edema. LABORATORY DATA: She has 135 sodium, potassium 4.4, BUN 60, creatinine 0.8, GFR is greater than 60, sugar is 337. I increased her diabetes medicine. Calcium is 9.2, total bili is 0.2, AST is 17, ALT is 27, alk phos 85, total protein 6, white count is 4.3; hemoglobin 9.6, 12.5 to 10.3, to 9.6. I will check her stool for occult blood, hematocrit 31.1, platelets of 234. ASSESSMENT AND PLAN: She is not feeling well, headache, abdominal cramping. She feels nauseous. She feels this is gastroparesis. She has done this before. History of colon cancer with a Whipple is in the past, maybe one more night to care if feeling better. I think it is her gastroparesis that is acting up and I will check a stool for occult blood because she has lost 3 g of hemoglobin since she has been in the hospital and we will continue with aggressive treatment and care, and once she can eat, to keep it down, we will discharge. Mayur Mcclendon DO [facility] # [id number] JE
[2018-11-16] MEDS ORDERED: Apap-Butalbital-Caffeine 325-50-40mg Tab PO PRN (13:14)
--- NOTE | 2018-11-16 13:36 | CP.PCM.PCO ---
Physician Communication Note - Physician Communication Note Physician Communication Note: needs better glycemic control. c/w gabapentin for headache.
[2018-11-16] MEDS ORDERED: Insulin Detemir 100 units/ml Vial (Levemir) SC SCH (22:00)
== END 2018-11-16 14:43 | disposition home or self-care (01) | DRG 73 ==
LOC: ED 04:06 → ERH 06:06 → 5RNO 08:22
PROVIDERS: ADMIT Family Medicine; ATTEND Family Medicine
DX: E11.43 Type 2 diabetes mellitus with diabetic autonomic (poly)neuropathy (principal); Q39.4 Esophageal web; K31.84 Gastroparesis; E11.65 Type 2 diabetes mellitus with hyperglycemia; J44.9 Chronic obstructive pulmonary disease, unspecified; K21.9 Gastro-esophageal reflux disease without esophagitis; I10 Essential (primary) hypertension; G43.009 Migraine without aura, not intractable, without status migrainosus; K29.70 Gastritis, unspecified, without bleeding; M54.30 Sciatica, unspecified side; F17.210 Nicotine dependence, cigarettes, uncomplicated; Z85.038 Personal history of other malignant neoplasm of large intestine; Z79.4 Long term (current) use of insulin; Z85.07 Personal history of malignant neoplasm of pancreas; Z90.411 Acquired partial absence of pancreas; Z90.49 Acquired absence of other specified parts of digestive tract; Z79.891 Long term (current) use of opiate analgesic

== ENCOUNTER 2019-01-05 14:46 | Outpatient (CLI) | payer BC, MEDICAID | END 2019-01-05 14:47 | disposition home or self-care (01) | LOC: RAD 14:46 ==

== ENCOUNTER 2019-01-18 11:47 | Outpatient (CLI) | payer BC, MEDICAID | END 2019-01-18 11:48 | disposition home or self-care (01) | LOC: RAD 11:47 ==

== ENCOUNTER 2019-01-24 15:09 | Outpatient (CLI) | payer BC, MEDICAID | END 2019-01-24 15:10 | disposition home or self-care (01) | LOC: RAD 15:09 ==

== ENCOUNTER 2019-01-30 18:17 | Emergency (ER) | payer BC, MEDICAID ==
[2019-01-30 18:21] VITALS: RESP 18; TEMP 98.8; BMI 34.1
[2019-01-30] MEDS ORDERED: Lidocaine 5% Patch TD STA (19:22)
--- NOTE | 2019-01-30 19:38 | ED PDOC ---
Arrival/HPI - General Chief Complaint: Lower Extremity Problem/Injury Time Seen by Provider: 01/30/19 18:53 Historian: Patient - History of Present Illness Narrative History of Present Illness (Text): 01/30/19 19:30 53 year old F with pmh of IDDM, hypertension, and COPD presents with chief complaint of constant b/l leg pain w/ swelling [id number]. Patient denies any trauma, injuries or falls. Patient reports being compliant with prescribed oxycodone for chronic back pain and gabapentin. Patient mentions taking tylenol for the leg pain. Patient denies any fevers, chills, headache, dizziness, chest pain, shortness of breath, dyspnea on exertion, cough, diaphoresis, abdominal pain, nausea, vomiting, diarrhea, neck pain, or any other complaint. PCP: Dr. Mcclendon Time/Duration: < month Symptom Onset: Gradual Symptom Course: Unchanged Activities at Onset: Light Context: Home Past Medical History - Provider Review Nursing Documentation Reviewed: Yes - Past History Past History: Non-Contributing - Infectious Disease Hx of Infectious Diseases: None - Tetanus Immunization Tetanus Immunization: Unknown - Reproductive Menopause: Yes - Cardiac Hx Cardiac Disorders: Yes Hx Hypertension: Yes Hx Pacemaker: No - Pulmonary Hx Respiratory Disorders: Yes Hx Asthma: Yes Hx Bronchitis: Yes Hx Chronic Obstructive Pulmonary Disease (COPD): Yes - Neurological Hx Neurological Disorder: Yes Hx Dizziness: Yes (NEAR SYNCOPE) - HEENT Hx HEENT Disorder: No - Renal Hx Renal Disorder: No - Endocrine/Metabolic Hx Diabetes Mellitus Type 1: Yes Hx Diabetes Mellitus Type 2: Yes - Hematological/Oncological Hx Cancer: No - Integumentary Hx Dermatological Disorder: No - Musculoskeletal/Rheumatological Hx Musculoskeletal Disorders: Yes (CHRONIC NECK AND PBACK PAIN) Hx Arthritis: Yes Hx Back Pain: Yes Hx Falls: No Other/Comment: uses cane - Gastrointestinal Hx Gastrointestinal Disorders: Yes (PANCREATIC CA,COLON CA WITH H/O WHIPPLE PROCEDURE) Hx Gastroesophageal Reflux: Yes Other/Comment: CONSTIPATION,GASTRITIS,GASTROPARESIS. - Genitourinary/Gynecological Hx Genitourinary Disorders: Yes Hx Urinary Tract Infection: Yes Other/Comment: Tubal ligation - Psychiatric Hx Psychophysiologic Disorder: No Hx Substance Use: Yes (CHRONIC OPIATE USE .H/O OF TREATMENT) Other/Comment: Hx substance abuse treatment - Surgical History Hx Cholecystectomy: Yes Hx Mastectomy: No - Anesthesia Hx Anesthesia: Yes Hx Anesthesia Reactions: No Hx Malignant Hyperthermia: No - Suicidal Assessment Feels Threatened In Home Enviroment: No Family/Social History - Physician Review Nursing Documentation Reviewed: Yes Family/Social History: Unknown Family HX Smoking Status: Current Some Days Smoker Hx Alcohol Use: No (denies) Hx Substance Use: Yes (CHRONIC OPIATE USE .H/O OF TREATMENT) Hx Substance Use Treatment: Yes Allergies/Home Meds Allergies/Adverse Reactions: Allergies iodine Allergy (Mild, Verified 11/14/18 12:46) RASH codeine Allergy (Verified 11/14/18 04:09) VOMITING Home Medications: Home Meds Medication Instructions Recorded Confirmed Gabapentin [Neurontin] 100 mg PO BID 12/12/17 08/16/18 Insulin Glargine, Recombina 22 unit SQ BID 03/10/18 08/16/18 [Lantus] Insulin Human Regular-MED [HumuLIN 5 units SC TID 03/10/18 08/16/18 R MED] Oxycodone HCl/Acetaminophen 1 each PO PRN PRN 06/22/18 08/16/18 [Percocet 10-325 mg Tablet] Review of Systems - Physician Review All systems were reviewed & negative as marked: Yes - Review of Systems Constitutional: Normal Eyes: Normal ENT: Normal Respiratory: Normal. absent: SOB Cardiovascular: Normal Gastrointestinal: Normal. absent: Abdominal Pain, Diarrhea, Nausea, Vomiting Genitourinary Female: Normal Musculoskeletal: Arthralgias (b/l leg pain), Back Pain (chronic) Skin: Normal Neurological: Normal Endocrine: Normal Hemo/Lymphatic: Normal Psychiatric: Normal Physical Exam Vital Signs Reviewed: Yes Vital Signs Temp Pulse Resp BP Pulse Ox 01/30/19 18:20 98.8 F 88 18 122/83 96 Temperature: Afebrile Blood Pressure: Normal Pulse: Regular Respiratory Rate: Normal Appearance: Positive for: Well-Appearing, Non-Toxic, Comfortable Pain Distress: Mild Mental Status: Positive for: Alert and Oriented X 3 - Systems Exam Head: Present: Atraumatic, Normocephalic Pupils: Present: PERRL Extroacular Muscles: Present: EOMI Conjunctiva: Present: Normal Mouth: Present: Moist Mucous Membranes Neck: Present: Normal Range of Motion Respiratory/Chest: Present: Clear to Auscultation, Good Air Exchange. No: Respiratory Distress, Accessory Muscle Use Cardiovascular: Present: Regular Rate and Rhythm, Normal S1, S2. No: Murmurs Abdomen: No: Tenderness, Distention, Peritoneal Signs Back: Present: Normal Inspection Upper Extremity: Present: Normal Inspection. No: Cyanosis, Edema Lower Extremity: Present: Normal Inspection, NORMAL PULSES, Normal ROM. No: Edema, Swelling Neurological: Present: GCS=15, CN II-XII Intact, Speech Normal Skin: Present: Warm, Dry, Normal Color. No: Rashes Psychiatric: Present: Alert, Oriented x 3, Normal Insight, Normal Concentration Medical Decision Making ED Course and Treatment: 01/30/19 19:30 Previous medical records reviewed, on 01/05/19 patient had an ultrasound of b/l lower extremities that showed a negative study for DVT. On 01/24/19, patient completed an MRI b/l of hips that showed a negative study. On 01/24/19, patient completed a lumbar MRI that showed disc herniation on the right side L4-L5. Impression: 53 year old F presents with chief complaint of constant b/l leg pain w/ swelling [id number] Plan: -- Labs -- Chest X-ray -- Lidoderm -- Reassess and disposition Prior Visits: Notes and results from previous visits were reviewed. Progress Notes: Labs reviewed. CXR : NAD. On reevaluation, patient remains awake alert and oriented 3 in no acute distress, she is laying in bed comfortably, eating a croissant. Diagnostic results discussed with the patient. Kayexalate po ordered for K 5.5, which the patient refused to take. Dr. Mcclendon called. 01/30/19 20:40 Case d/w Dr. Mcclendon, states that the patient can be d/c with instructions to f/u in his office. Advised to follow up with primary care physician in 1-2 days without fail. Return to the emergency room at any time for any new or worsening symptoms. Patient states she fully agrees with and understands discharge instructions. States that she agrees with the plan and disposition. Verbalized and repeated discharge instructions and plan. I have given the patient opportunity to ask any additional questions. - RAD Interpretation Radiology Orders: 01/30/19 19:21 CHEST PORTABLE [RAD] Stat - Medication Orders Current Medication Orders: Discontinued Medications Lidocaine (Lidoderm) 1 ea TD STAT STA Stop: 01/30/19 19:23 - PA / UNDERGROUND UTILITY LOCATOR / Resident Statement MD/DO has reviewed & agrees with the documentation as recorded. - Scribe Statement The provider has reviewed the documentation as recorded by the Nel Jones All medical record entries made by the Nel were at my direction and personally dictated by me. I have reviewed the chart and agree that the record accurately reflects my personal performance of the history, physical exam, medical decision making, and the department course for this patient. I have also personally directed, reviewed, and agree with the discharge instructions and disposition. Disposition/Present on Arrival - Present on Arrival Any Indicators Present on Arrival: No History of DVT/PE: No History of Uncontrolled Diabetes: No Urinary Catheter: No History of Decub. Ulcer: No History Surgical Site Infection Following: None - Disposition Have Diagnosis and Disposition been Completed?: Yes Diagnosis: Bilateral leg pain Disposition: HOME/ ROUTINE Disposition Time: 20:30 Patient Plan: Discharge Patient Problems: Current Active Problems Problem Status Onset Bilateral leg pain Acute Condition: STABLE Discharge Instructions (ExitCare): Diabetic Neuropathy (DC) Additional Instructions: Thank you for letting us take care of you today. You were treated for b/l leg pain, likely DM neuropathy. The emergency medical care you received today was directed at your acute symptoms. If you were prescribed any medication, please fill it and take as directed. It may take several days for your symptoms to resolve. Return to the Emergency Department if your symptoms worsen, do not improve, or if you have any other problems. Please contact your doctor in 2 days for re-evaluation and follow up. Bring any paperwork you were given at discharge with you along with any medications you are taking to your follow up visit. Our treatment cannot replace ongoing medical care by a primary care provider (PCP) outside of the emergency department. Thank you for allowing the [facility] team to be part of your care today. Forms: [employer] (Persian)
[2019-01-30 20:15] LABS: BLOOD UREA NITROGEN 20 mg/dL (7-21); CALCIUM 8.9 mg/dL (8.4-10.5); GFR NON-AFRICAN AMERICAN > 60
[2019-01-30 20:22] LABS: BASO # 0.02 K/mm3 (0.0-2.0); BASO % 0.4 % (0.0-3.0); EOS # 0.2 (0.0-0.7); EOS % 3.3 % (1.5-5.0); HEMOGLOBIN 10.9 g/dL (12.0-16.0); LYMPH # 2.7 (1.2-3.4); LYMPH % 48.7 % (22.0-35.0); MEAN CELL VOLUME 84.4 fl (80.0-105.0); MEAN CORPUSCULAR HEMOGLOBIN 26.5 pg (25.0-35.0); MEAN CORPUSCULAR HGB CONC 31.4 g/dl (31.0-37.0); MEAN PLATELET VOLUME 8.8 fl (7.0-11.0); MONO # 0.4 (0.1-0.6); MONO % 6.7 % (1.0-6.0); RBC 4.11 10^6/uL (3.5-6.1); RED CELL DISTRIBUTION WIDTH 18.4 % (11.5-14.5); WHITE BLOOD COUNT 5.5 10^3/uL (4.5-11.0)
[2019-01-30 20:27] LABS: ALB/GLOB RATIO 1.3 (1.1-1.8); ALBUMIN 3.8 g/dL (3.0-4.8); ALT/SGPT 19 U/L (7-56); AST/SGOT 42 U/L (14-36)
[2019-01-30 21:01] VITALS: BP 126/78; PULSE 86; O2SAT 98
--- NOTE | 2019-01-31 08:31 | RAD ---
Date of service: 01/30/2019 HISTORY: RLE edema, pain b/l LE COMPARISON: 08/20/2018 TECHNIQUE: 1 view obtained. FINDINGS: LUNGS: No active pulmonary disease. PLEURA: No significant pleural effusion identified, no pneumothorax apparent. CARDIOVASCULAR: No aortic atherosclerotic calcification present. Normal cardiac size. No pulmonary vascular congestion. OSSEOUS STRUCTURES: No significant abnormalities. VISUALIZED UPPER ABDOMEN: Normal. OTHER FINDINGS: None. IMPRESSION: No active disease.
== END 2019-01-30 21:01 | disposition home or self-care (01) ==
LOC: ED 18:17
DX: M79.604 Pain in right leg (principal); M79.605 Pain in left leg; I10 Essential (primary) hypertension; J44.9 Chronic obstructive pulmonary disease, unspecified; E10.9 Type 1 diabetes mellitus without complications; Z79.4 Long term (current) use of insulin

== ENCOUNTER 2019-02-13 14:34 | Outpatient (CLI) | payer BC, MEDICAID | END 2019-02-13 14:35 | disposition home or self-care (01) | LOC: RAD 14:34 ==